=== PATIENT | male | born 1960 | race Caucasian/White ===

== ENCOUNTER → 2017-11-14 14:44 | Outpatient (CLI) | payer BC, SELFPAY ==
--- NOTE | 2017-11-14 14:47 | RAD_ITS ---
STUDY: X-RAY - RIGHT HAND, ATTENTION THIRD FINGER REASON FOR EXAM: Growth of the dorsal middle finger over the metacarpophalangeal joint. TECHNIQUE: 3 view(s) of the finger were obtained. COMPARISON: None. FINDINGS: Normal metacarpal head. Normal metacarpophalangeal joint. Normal proximal phalanx. Normal middle phalanx. Normal distal phalanx. There is a small subchondral cyst of the radial base of the middle phalanx at the proximal interphalangeal joint. Normal distal interphalangeal joint. There are no abnormal soft tissue calcifications or radiographic soft tissue abnormality at the dorsal aspect of the metacarpophalangeal joint RAD/Finger(s) Min 2 Views IMPRESSION: No demonstrated abnormal soft tissue calcification or osseous erosion. Electronically Signed: Gama Villarreal MD at 15:08 EST Tel , Service support ,
== END ==
PROVIDERS: Family Provider Preventive Medicine Occupational Medicine; PCP Preventive Medicine Occupational Medicine; Visit Provider Orthopaedic Surgery
DX: M79.644 Pain in right finger(s) (principal)
CPT/HCPCS: 73140

== ENCOUNTER → 2017-11-27 17:42 | Outpatient (CLI) | payer BC, SELFPAY ==
--- NOTE | 2017-11-27 17:44 | MRI_ITS ---
STUDY: MRI RIGHT HAND REASON FOR EXAM: Male, 57 years old. Mass TECHNIQUE: Standardized fat and water weighted pulse sequences were obtained in all 3 orthogonal planes. COMPARISON: X-ray 11/14/2017 FINDINGS: There is induration of the subcutaneous fat at the dorsal aspect of the head of the third proximal phalanx adjacent to the dermis and extensor tendon/joint capsule (image 19, 18, 17/35 axial T1). There is benign intraosseous lesion at the third metacarpal head and neck which appears cystic in nature (image 13/20 coronal inversion recovery). Normal metacarpophalangeal joints. Normal proximal and distal interphalangeal joints. Normal proximal, middle and distal phalanges. There are no lipomatous masses. MRI/Upper Ext/No Jt/ wo IMPRESSION: Nonspecific induration at the dorsal subcutaneous fat adjacent to the head of the third proximal phalanx Electronically Signed: Ahmet Ochoa MD at 21:34 EST Tel , Service support ,
== END ==
PROVIDERS: Family Provider Preventive Medicine Occupational Medicine; PCP Preventive Medicine Occupational Medicine; Visit Provider Orthopaedic Surgery
DX: R22.9 Localized swelling, mass and lump, unspecified (principal)
CPT/HCPCS: 73218

== ENCOUNTER 2017-12-11 11:35 | Day surgery (SDC) | payer BC, SELFPAY ==
[2017-12-11] VITALS (8 sets, daily range): BP systolic 115–133; BP diastolic 72–88; PULSE 70–82; RESP 16–20; TEMP 36.3–36.6; O2SAT 95–100; BMI 33.5
--- NOTE | 2017-12-11 13:10 | CYST_PTH ---
PATIENT: COLIN PENN LOC: [facility] [place] U#:[id number] AGE/SX: 57/M ROOM: RE12/11/[address]: Dr. Roma Tinajero DO : 1960 BED: DIS: 12/11/2017 SPEC #: [id number] RECD: 12/11/17 18:08 STATUS: CAMRON MAGALYS #: [id number] CARA: 12/11/17 13:[address]: Roma Tinajero DEPT: SURGICAL PATHOLOGY RECD BY: Joseph Lorenzana ENTERED: 12/12/17 11:07 SP TYPE: Cyst OTHR DR: Dr. Brian Dickinson DO Tissues: Finger, NOS Procedures: Surgery Specimen Level III HEADER OPERATION: Excision, bone cyst, third finger, dorsal PIP joint PRE-OP DIAGNOSIS: Cyst third right finger TISSUE SUBMITTED: Right finger cyst MICROSCOPIC DIAGNOSIS Right finger cyst, biopsy: Consistent with ganglion cyst. See comment. IRA:daryl 12/13/17 COMMENT No bony tissue is identified in the submitted specimen. MICROSCOPIC DESCRIPTION Slides are reviewed. GROSS DESCRIPTION Received in fixative is one container labeled with the patient's name and designated finger cyst. The specimen consists of a piece of wood-white soft tissue/skin measuring 0.8 x 0.5 x 0.2 cm. The specimen is inked, bisected and submitted entirely in one cassette. / SJ:daryl 12/12/17 TC:5 CPT: 20585
[2017-12-11] MEDS: Cefazolin 2 GM in 0.9% Normal Saline 100 ML IV (14:20)
[2017-12-11] MEDS: Bupivacaine 0.25% 30 ML Vial (14:40)
--- NOTE | 2017-12-11 15:18 | DCINST_ITS ---
Discharge Diet: No Restrictions - Leave dressing in place, leave splint in place , follow-up in 2 weeks for suture removal, call with concerns, if dressing gets wet or needs reinforcement we may reinforce with more gauze and tape Discharge Activity: May Not Drive May shower in (days): 1 Ice area for (Minutes): 20 - Every hour while awake. Weight Bearing Status: Weight bearing as tolerated Keep extremity elevated above heart level: Operative Extremity Call your doctor if your incision/area has: Continuous Slow Oozing, Sudden Increased Bleeding, Increased Pain/ Swelling, Increased Redness, Foul Smelling Discharge Call your doctor if you observe: Fever of 101 or Higher, Coldness, Increased Pain, Numbness or Tingling, Change in Color, Calf discomfort Allergies/Adverse Reactions: Allergies No Known Allergies Allergy (Verified 12/10/17 11:22) Medications to take at Discharge azelastine 0.15 % (205.5 mcg) nasal spray 1 spray INTRANASAL BID 11/11/17 cetirizine 10 mg tablet 10 mg PO ONCE tab 11/11/17 Ranitidine [Zantac] 150 mg PO DAILY PRN 12/10/17 Primary Care Physician: Brian Dickinson DO [Primary Care Provider] - Please Follow Up With: Roma Tinajero DO - [phone]
--- NOTE | 2017-12-11 15:22 | OP.PCM_ITS ---
Report of Operation Date of Procedure: 12/11/17 Pre-Operative Diagnosis: right third finger dorsal pip joint subcutaneous nodule Post-Operative Diagnosis: same Type of Anesthesia:: Local Anesthesiologist: Ger Dominguez Estimated Blood Loss (mL): minimal Fluids Replaced: 800cc LR Description of Procedure: Preoperative note Patient is a 57-year-old male of the enlargement subcutaneous end of the right PIP and subcutaneous skin. Patient MRI confirms a soft tissue and nonaggressive mass. Patient elected to have it removed as bothering him in his work. Risks benefits and alternatives surgery discussed with patient. Risks including but not limited to blood loss, blood clot, infection, neurovascular injury, failure procedure, loss of life and loss of limb. Patient is aware would like proceed with right dorsal PIPs of cutaneous skin lesion excision. Operative note Patient seen and examined proper preoperative holding area. Right third finger was marked. Patient is brought to the operating room placed supine on the operative table. Signing, anesthesia, antibiotics were administered. We performed a local block at the start of the case of the third finger. Timeout was performed. We then placed a Tourni-cot around the third finger. We marked out our incision for our skin nodule excision. Timeout was performed. We then made use a 15 blade and had a curvilinear S incision incision over this nodule. We dissected with a 15 blade down to level of the cyst we then used tenotomies to dissect down to level of the nodule which is about 0.5 x 0.5 which was removed and sent to pathology. We then used to our Bovie a bipolar to coagulate any bleeders that we did encounter. We the skin was closed with interrupted 4-0 nylon stitches. Tourniquet was deflated for total working time of 15 minutes. Sterile dressings and a splint was applied to the right third finger. Patient tolerated procedure well there are no complication patient transferred to the recovery room in stable condition. Postoperative note Maintain dressing until seen postop clinic Follow-up in 2 weeks Call with concerns next Allowed to reinforce dressing if he gets drainage or may change dressing at the end dressing gets wet next Call with increased pain numbness tingling further issues arise This note was generated with [employer] software. It may contain incorrect words, spelling, and punctuation that were not noted in checking the note before signing.
[2017-12-11] MEDS: HYDROcodone Bitartrate/Apap 5/325 Tablet PO (16:19)
== END 2017-12-11 16:33 | disposition home or self-care (01) ==
LOC: SDC 11:36 → AC 11:37
PROVIDERS: Family Provider Preventive Medicine Occupational Medicine; PCP Preventive Medicine Occupational Medicine; Visit Provider Orthopaedic Surgery
PROC: (CPT 26160; principal; 2017-12-11 12:55)
DX: M67.441 Ganglion, right hand (principal)
CPT/HCPCS: 26160; 88304; J7120; J2405

== ENCOUNTER 2018-01-15 13:30 | Outpatient (RCR) | payer BC, SELFPAY ==
--- NOTE | 2017-12-25 15:43 | HP.OTEVAL ---
Patient's Visit Information COLIN PENN is a 57 year old M, referred to Occupational Therapy by Roma Tinajero DO,, with a diagnosis of R middle finger cyst excision. Date of Evaluation: 12/25/17 Occupational Therapist: Vicky Adams - Subjective Subjective: Pt seen for initial occupational therapy evaluation for R middle finger cyst excision that took place on 12/11/17. Previously pt had smashed his R middle finger at work yrs ago and has deformed R middle finger at PIP and DIP joints. Pt no longer in splint for finger as of 12/24/17 and able to complete ROM and strengthening tasks to R middle finger. 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 Pt R hand dominent. - Pain Right Hand 3 Pain Intensity Range: 1, 2, 3 - Objective Objective/Observation: Pt demo slight edema R middle finger with decreased education on scar mngmt tech. Pt demo R hand decreased cpas strength and increased stiffness and pain limiting functional use of R hand. - ROM PIP: R -10/100, L 0/130 DIP: R -5/ 50, L 0/60 ROM Comments: Pt able to make full composite fist. - Strength Music Composer: R 100#, L 110# Tripod Pinch: R 22#, L 26# Strength Comments: Pt demo decreased strength R hand - Edema Other: Slight edema noted R middle finger PIP joint - Sensation Sensation Comments: occassional numbness/tingling R middle finger distal tip - DASH-Disabilities of Arm, Shoulder& Hand DASH Sum: 60 - Goals Goal:: Pt will progress w/ R hand cpas strength by 10# and pinch strength by 4# to assist with functional living tasks and gardening hobbies. Goal:: Pt will progress with R middle finger PIP flexion 20' to increase functional use of R UE for hobbies of gardening and functional living tasks. Goal:: Pt will demo no pain greater than 1/10 R middle finger by d/c from occupational therapy. Goal:: Pt will be educated on R UE hand strengthening HEP with good understanding and demo 100%x. Goal:: Pt will be educated on scar mngmt tech to decrease scar sensitivity with good understanding and demo 100%x. - Rehabilitation General Assessment: Pt demo slight edema R middle finger with decreased R hand strength and AROM R middle finger. Pt would benefit from occupational therapy services to increase R hand strength and ROM, decrease pain, stiffness and edema R middle finger with education on scar mngmt techniques and HEP. Rehabilitation Potential: Excellent - Anticipated Interventions Anticipated Interventions: A/AAROM/PROM, Strengthening, Edema Control, Massage, Modalities, Joint Protection/Energy Conservation, Fine Motor Coord/Quentin, ADL Training, Home Program - Visit Plan Frequency: 1x/Week Duration: 4 Weeks General Plan: Increase R hand strength and ROM, decrease pain, stiffness and edema R middle finger with education on scar mngmt techniques and HEP. TEXT: Thank you for the opportunity to evaluate your patient. For Medicare and Medicare HMO plans, please review the plan of care and approve it. It will need to be FAXED BACK to us at [phone] for Medicare purposes. Please let me know if there are questions or concerns regarding this plan of care. Physician Signature: Date:
--- NOTE | 2018-01-15 14:27 | HP.OTDCSUM ---
HP - OT D/C Summary It has been my pleasure to treat COLIN PENN under orders from Roma Tinajero DO, for the diagnosis of R middle finger cyst excision for a total of 4 visit(s). Please see the following information for a summary of their discharge status. 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 Tripod Pinch R 24#, L 26#. 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 Goal:: Pt will progress with R middle finger PIP flexion 20' to increase functional use of R UE for hobbies of gardening and functional living tasks. Goal:: Pt will demo no pain greater than 1/10 R middle finger by d/c from occupational therapy. Goal:: Pt will be educated on R UE hand strengthening HEP with good understanding and demo 100%x. Goal:: Pt will be educated on scar mngmt tech to decrease scar sensitivity with good understanding and demo 100%x. - Plan Plan: d/c from OT this date. - D/C Information Discharge Comments: Pt educated on scar mngmt techniques and ROM exercises to complete at home with good understanding. 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 Pt has progressed with tripod pinch strength from R 22# to 24#. Pt demo increased flexion R middle finger PIP joint 64' flexion. Pt completing functional tasks at home with no pain to minimal pain. Independent w/ all BADLs/IADLs. Pt no longer requires OT services at this time. D/C OT services. Pt has made good progress with all goals. If there are questions or concerns regarding this patient's occupational therapy, please fell free to call me at [phone]. Thank you for the referral of this patient. Sincerely, Vicky Adams
== END 2018-01-15 19:00 | disposition home or self-care (01) ==
LOC: OT 13:30
PROVIDERS: Family Provider Preventive Medicine Occupational Medicine; PCP Preventive Medicine Occupational Medicine; Visit Provider Orthopaedic Surgery
DX: Z98.890 Other specified postprocedural states (principal)
CPT/HCPCS: 97035; 97110; 97140; 97165

== ENCOUNTER → 2018-12-09 08:35 | Outpatient (CLI) | payer BC, SELFPAY ==
--- NOTE | 2018-12-09 08:42 | US_ITS ---
STUDY: ABDOMINAL ULTRASOUND - RIGHT UPPER QUADRANT REASON FOR VISIT: Male, 58 years old. Right upper quadrant pain TECHNIQUE: Ultrasound evaluation of the right upper quadrant was performed with real-time and static slater-scale imaging. TECHNICAL QUALITY: Adequate. COMPARISON: None. FINDINGS: Liver: The liver measures 16.9 cm. There is mild heterogeneous echotexture of the liver parenchyma with subtle hyper echogenicity. The bile ducts are within normal limits. There is hepatic color flow. The direction of portal flow is hepatopetal. There is no demonstrated mass lesion. Gallbladder: Normal distended gallbladder. The gallbladder wall measures 2.3 mm. There is a negative sonographic Pittman's sign. There is no pericholecystic fluid. There are no gallstones. Common Bile Duct (C.B.D.): The common bile duct measures 3.0 mm. Pancreas: Normal size of the head, body and tail of the pancreas. There is normal echogenicity of the pancreas. There is no demonstrated pancreatic mass or cyst. Right Kidney: Normal size of the right kidney. The right kidney measures 10.4 x 4.8 x 4.7 cm. Multiple anechoic lesions scattered throughout the right kidney measuring up to 2.5 cm. There is an 8 mm calcification within the right lower renal pelvis. No hydronephrosis. The right cortex measures 2 cm. US/Abdomen Limited IMPRESSION: 1. Simple appearing right renal cysts measuring up to 2.5 cm. 2. Nonobstructing 8 mm right lower renal pole calculus. Electronically Signed: Joseph Mack MD at 3:39 EST Tel , Service support ,
== END ==
PROVIDERS: Family Provider Preventive Medicine Occupational Medicine; PCP Preventive Medicine Occupational Medicine; Referring Provider Nurse Practitioner Family; Visit Provider Nurse Practitioner Family
DX: R10.11 Right upper quadrant pain (principal)
CPT/HCPCS: 76705

== ENCOUNTER → 2019-03-27 11:41 | Outpatient (CLI) | payer BC, SELFPAY ==
--- NOTE | 2019-03-27 11:43 | NM_ITS ---
CLINICAL: 58-year-old male with reported history of right upper quadrant abdominal pain. RADIONUCLIDE HEPATOBILIARY SCINTIGRAPHY COMPARISON: Abdominal ultrasound report 12/09/2018 FINDINGS: Following the intravenous administration of 5.1 mCi of 99m Tc Mebrofenin, hepatobiliary images reveal: 1. Relatively prompt and homogeneous radiopharmaceutical concentration is noted by a normal sized liver. No parenchymal defects are identified. 2. Gallbladder activity is identified at 15 minutes post radiopharmaceutical administration. 3. Small intestinal tract is not visualized during 60 minutes of pre-CCK sequential imaging. Small bowel activity is identified following the administration of cholecystokinin. 4. Washout of the radiopharmaceutical by the hepatic parenchyma appears qualitatively normal. Cholecystokinin (0.02 ug/kg) was administered intravenously over a 3-minute period. The post CCK gallbladder ejection fraction calculated at 20 minutes following Cholecystokinin administration was noted to be 8.0 % (normal greater than 35%). NM/Hepatobilliary Img w/Pharm Int IMPRESSION: 1. ABNORMAL 99m Tc Mebrofenin hepatobiliary imaging examination with Cholecystokinin. A. A gallbladder ejection fraction calculated to be less than 35% following the administration of Cholecystokinin is consistent with the presence of functional hepatobiliary disease (gallbladder and/or sphincter of Oddi dyskinesia) and/or organic hepatobiliary disease (chronic acalculous cholecystitis and/or cystic duct syndrome) in patients with intermediate to high pretest likelihoods of hepatobiliary illness. (Deandra Newell et al, Journal of Nuclear Medicine 32:1695, 1990). Electronically Signed: Blu Segura DO at 23:37 EDT Tel , Service support ,
== END ==
PROVIDERS: Family Provider Preventive Medicine Occupational Medicine; PCP Preventive Medicine Occupational Medicine; Referring Provider Preventive Medicine Occupational Medicine; Visit Provider Preventive Medicine Occupational Medicine
DX: R10.11 Right upper quadrant pain (principal)
CPT/HCPCS: 78227; A9537; J2805

== ENCOUNTER 2020-09-26 04:54 | Emergency (ER) | payer BC, SELFPAY ==
[2020-09-26 04:55] VITALS: BP 135/87; PULSE 97; RESP 18; TEMP 36.6; O2SAT 97; BMI 31.2
--- NOTE | 2020-09-26 05:11 | EKG12_ITS ---
Test Reason : DYSRHYTHMIA Blood Pressure : / mmHG Vent. Rate : 095 BPM Atrial Rate : 095 BPM P-R Int : 142 ms QRS Dur : 084 ms QT Int : 346 ms P-R-T Axes : 000 050 043 degrees QTc Int : 434 ms Normal sinus rhythm vs Ectopic Atrial Rhythm Normal ECG Confirmed by MIGUEL ANGEL ELLIS, CELESTINE ([id number]), material expeditor LILLY SUAREZ ([id number]) on 09/28/2020 12:49:04 PM Referred By: CL Confirmed By:CELESTINE MICHELLE MD
--- NOTE | 2020-09-26 05:11 | RAD_ITS ---
STUDY: X-RAY CHEST REASON FOR EXAM: Male, 60 years old. pt c/o heart racing off and on since before thanksgiviing,getting worse,sob TECHNIQUE: Single AP portable view of the chest. COMPARISON: None. FINDINGS: The lungs are clear and expanded. There is no demonstrated pleural abnormality. Normal size heart. Normal mediastinum and jason. Normal visualized pulmonary arteries. Normal visualized aortic arch and descending thoracic aorta. Normal visualized thoracic spine. Normal visualized ribs, clavicles, and shoulders. There is no demonstrated abnormality of the visualized soft tissue structures of the upper abdomen. RAD/Chest 1 View (Portable) IMPRESSION: Normal x-ray examination of the chest. Electronically Signed: Coco Hoang, at 6:07 EST Tel , Service support ,
--- NOTE | 2020-09-26 05:12 | ED.DCSUM_ITS ---
History of Present Illness Chief Complaint: Palpitations Informant: Patient Narrative: 60-year-old male with no significant past medical history other than hyperlipidemia presents with concern for palpitations. Patient states that approximately 3 weeks ago he had an upper respiratory illness. Tested negative for coronavirus at that time. States that shortly following he began having episodes where at night he would feel his heart racing. States he would become short of breath. States it is resolved whenever he came into a seated position. States it is worsened over this period of time. Patient was seen at an [place] emergency department where they referred him to a concrete vault maker in [place]. This concrete vault maker placed him on Lasix for which he has been taking however states he did not have elevated blood pressure prior to this medication. Patient denies any history of DVT or pulmonary embolism. Patient is not a current smoker. Past Medical History - Allergies and Home Meds Allergies/Adverse Reactions: Allergies No Known Allergies Allergy (Verified 09/26/20 04:58) Primary Care Physician: Gene Chao MD [STAFF PHYSICIAN] - 3-5 Days Brian Dickinson DO [Primary Care Provider] - 2 Days Prior records reviewed: Yes Past Medical History: - - hld Surgical History: cholecystectomy Lives: Spouse/ Significant Other Smoking Status: Former smoker Alcohol: None Drugs: None Review of Systems General: Denies: Chills, Fever, Sweats Eyes: Denies: Visual changes - bilaterally, Diplopia ENT: Denies: Rhinorrhea, Sore throat Cardiovascular: Reports: Palpitations, Heart racing. Denies: Chest pain Respiratory: Reports: Dyspnea. Denies: Cough, Dyspnea on exertion Gastrointestinal: Denies: Abdominal pain, Nausea, Vomiting, Diarrhea, Melena, Hematochezia Genitourinary: Denies: Dysuria, Hematuria, Frequency Musculoskeletal: Denies: Back pain, Extremity Pain Skin: Denies: Rash, Wounds Neurological: Denies: Headache, Weakness, Numbness Physical Exam Vital Signs/Narrative: Vital Signs Temp Pulse Resp BP Pulse Ox 09/26/20 04:55 97.9 F 97 18 135/87 H 97 Inital Vital Signs reviewed: Yes General: Well nourished, Well developed, No Acute Distress Head: Normocephalic, Atraumatic Eyes: Perrl, EOMI ENT: Moist mucous membranes, No rhinorrhea Neck: Supple, Nontender Cardiovascular: Regular rate, Regular rhythm, No murmurs Respiratory: No distress, CTA bilaterally, Chest nontender Abdomen: Soft, Nontender, Nondistended, Normal bowel sounds Back: Nontender, Normal Inspection Extremities: Nontender, No edema Skin: Normal color, No rash Neurological: Alert, Oriented x3, Cranial nerves II-XII grossly intact, Normal Strength, Normal Sensation Psychological: Normal affect, Normal Mood Diagnostic/Tx/Re-eval Chest X-Ray - ED: 1 View, Read by ED Physician, Read by Radiologist - Rhythm Strip Rhythm Strip: Sinus Rhythm Rate: 95 Ectopy: None - EKG Initial EKG Interpretation: Sinus Rhythm - Normal sinus rhythm at 95 bpm. NJ interval of 142 ms. QTC of 434 ms. No evidence of ST elevation or depression at this time. - Medical Decision Making Patient appears well and nontoxic. Vital signs within normal limits. EKG nonischemic. Troponin negative. Chest x-ray negative. BNP as well as D-dimer negative. Unclear the cause of the patient's palpitations however we will get him set up for Holter monitor and follow-up with one of our concrete vault maker. Asked to return for any chest pain or worsening shortness of breath. Patient agreeable and discharged home in stable condition. Impression: 1. Palpitations 2. Dyspnea ED Disposition - Plan for ED Patient: Disposition: Home or Assisted Living Instructions: ED Palpitations Referrals: Brian Dickinson DO [Primary Care Provider] - 2 Days Gene Chao MD [STAFF PHYSICIAN] - 3-5 Days
[2020-09-26 05:33] LABS: Absolute Neutrophil Count 3.6 X10^3/uL (2.0-7.7); Basophil# 0.04 X10^3/uL; Basophil% 0.6 % (0-1); Eosinophils% 1.5 % (0-5); Hematocrit 50.6 % (40-54); Hemoglobin 17.1 g/dL (13.0-16.5); Lymphocyte % 32.1 % (19-41); Mean Corp Hgb Conc 33.8 g/dL (32-36); Mean Corpuscular Hgb 30.4 pg (27.0-32.0); Mean Platelet Vol. 9.6 fl (6.2-12.0); Monocyte# 0.68 X10^3/uL; Monocyte% 10.4 % (0-10); NRBC Flagged by Analyzer 0 % (0-5); Neutrophil # 3.62 X10^3/uL (2.7-7.7); Neutrophil % 55.2 % (47-70); Platelet Count 236 K/mm3 (150-450); RBC Distribution Width CV 12.8 % (11.6-14.6); RBC Distribution Width SD 42.2 fl (35.1-43.9); Red Blood Count 5.62 M/mm3 (4.6-6.2); White Blood Count 6.6 K/mm3 (4.4-11.0)
[2020-09-26 05:47] LABS: Anion Gap 6 (5-15); BUN 19 mg/dL (7-18); BUN/Creat Ratio 16.5 RATIO (10-20); Calcium,Total 9.5 mg/dL (8.5-10.1); Chloride 100 mmol/L (98-107); Creatinine, Serum 1.15 mg/dL (0.70-1.30); D-Dimer Quantitative (DVT/PE) <= 0.27 FEU/ug/m (0.27-0.49); EST Glomerular Filtration Rate 69 mL/min (>60); Est Glom Filt Rate - Afr Amer 83 mL/min (>60); Estimated Creatinine Clearance 70.53 ml/min; Glucose 129 mg/dL (74-106); Potassium 3.9 mmol/L (3.5-5.1); Sodium Level 137 mmol/L (136-145)
--- NOTE | 2020-09-26 06:48 | ED.RN ---
CALLED LAB FOR BNP RESULTS, 10 MORE MINUTES.
[2020-09-26 07:08] LABS: BNP,B-Type NATRIURETIC PEPTIDE < 2.0 pg/mL (0-100)
[2020-09-26 07:43] VITALS: BP 129/75; PULSE 93; RESP 15; O2SAT 98
== END 2020-09-26 08:56 | disposition home or self-care (01) ==
PROVIDERS: Emergency Provider Emergency Medicine; PCP Preventive Medicine Occupational Medicine
DX: R00.2 Palpitations (principal); R06.00 Dyspnea, unspecified; E78.5 Hyperlipidemia, unspecified; Z87.891 Personal history of nicotine dependence
CPT/HCPCS: 71045; 80048; 83880; 84484; 85025; 85379; 93005; 99284; A4216

== ENCOUNTER → 2020-09-26 07:43 | Outpatient (CLI) | payer BC, SELFPAY ==
[2020-09-26 04:55] VITALS: BMI 31.2
== END ==
PROVIDERS: PCP Preventive Medicine Occupational Medicine; Visit Provider Internal Medicine Cardiovascular Disease
DX: R00.2 Palpitations (principal)
CPT/HCPCS: 93225; 93226

== ENCOUNTER → 2020-11-07 16:07 | Outpatient (CLI) | payer BC, SELFPAY ==
[2020-10-19 08:47] VITALS: BMI 31.2
--- NOTE | 2020-11-07 16:12 | CT_ITS ---
HISTORY: DYSPNEA, ELEVATED HEART RATE TECHNIQUE: CT images of the chest were obtained with 92 mL Isovue-370 IV contrast. Number of images including paperwork: [id number]. A radiation dose optimization technique was used for this scan. COMPARISON: Chest radiograph 09/26/2020 FINDINGS: VASCULATURE: Unremarkable as imaged. HEART/PERICARDIUM: Normal heart size. Coronary calcification. MEDIASTINUM: Unremarkable. ADENOPATHY: No pathologic appearing adenopathy. THYROID: Unremarkable visualized portions. LUNG PARENCHYMA: No consolidation or mass. PLEURAL SPACES: Unremarkable. UPPER ABDOMEN: Cholecystectomy. OSSEOUS AND SOFT TISSUE STRUCTURES: No acute skeletal findings. Degenerative changes. DEVICES: None. CT/Chest WITH Contrast IMPRESSION: No acute abnormality of the chest. Individualized dose optimization techniques were used for this CT. at 0453 Reported and signed by: Betty Apple MD Electronically Signed: Betty Apple MD at 4:53 EST Tel , Service support ,
== END ==
PROVIDERS: PCP Preventive Medicine Occupational Medicine; Referring Provider Internal Medicine Cardiovascular Disease; Visit Provider Internal Medicine Cardiovascular Disease
DX: R06.00 Dyspnea, unspecified (principal)
CPT/HCPCS: 71260; Q9967

== ENCOUNTER → 2021-08-23 10:51 | Outpatient (CLI) | payer BC, SELFPAY ==
[2021-08-23 12:25] LABS: Absolute Lymphocyte Count 1.63 X10^3/uL (0.83-4.51); Basophil# 0.05 X10^3/uL; Basophil% 1.1 % (0-1); Eosinophil# 0.55 X10^3/uL; Eosinophils% 11.8 % (0-5); Hematocrit 47.5 % (40-54); Hemoglobin 15.8 g/dL (13.0-16.5); Lymphocyte # 1.63 X10^3/ul (0.83-4.51); Lymphocyte % 35.1 % (19-41); Mean Corp Hgb Conc 33.3 g/dL (32-36); Mean Corpuscular Hgb 30.1 pg (27.0-32.0); Mean Corpuscular Volume 90.5 fL (80-94); Mean Platelet Vol. 10.1 fl (6.2-12.0); Monocyte# 0.38 X10^3/uL; Monocyte% 8.2 % (0-10); NRBC Flagged by Analyzer 0 % (0-5); Neutrophil # 2.03 X10^3/uL (2.7-7.7); Neutrophil % 43.6 % (47-70); Platelet Count 189 K/mm3 (150-450); RBC Distribution Width CV 13.7 % (11.6-14.6); RBC Distribution Width SD 45.3 fl (35.1-43.9); Red Blood Count 5.25 M/mm3 (4.6-6.2); White Blood Count 4.7 K/mm3 (4.4-11.0)
[2021-08-23 12:45] LABS: ALB/GLOB Ratio 0.9 RATIO (0.9-2.4); AST(SGOT) 20 U/L (15-37); Alanine Aminotransfer ALT/SGPT 35 U/L (16-61); Albumin, Serum 3.6 g/dL (3.2-5.0); Alkaline Phosphatase 72 U/L (45-117); Anion Gap 2 (5-15); BUN 17 mg/dL (7-18); BUN/Creat Ratio 16.2 RATIO (10-20); Calcium,Total 9.3 mg/dL (8.5-10.1); Chloride 105 mmol/L (98-107); Creatinine, Serum 1.05 mg/dL (0.70-1.30); EST Glomerular Filtration Rate 76 mL/min (>60); Est Glom Filt Rate - Afr Amer 92 mL/min (>60); Glucose 108 mg/dL (74-106); Potassium 3.9 mmol/L (3.5-5.1); Protein, Total 7.6 g/dL (6.4-8.2); Sodium Level 139 mmol/L (136-145)
== END ==
PROVIDERS: PCP Family Medicine; Referring Provider Family Medicine; Visit Provider Family Medicine
DX: Z01.818 Encounter for other preprocedural examination (principal)
CPT/HCPCS: 36415; 80053; 85025

== ENCOUNTER 2021-09-01 05:57 | Day surgery (SDC) | payer BC, SELFPAY ==
[2021-09-01] VITALS (7 sets, daily range): BP systolic 114–134; BP diastolic 67–97; PULSE 64–80; RESP 16–18; TEMP 36–36.4; O2SAT 97–100; BMI 32.1
[2021-09-01] MEDS: Lactated Ringers 1,000 ML 100 ML IV ×3 (06:35→11:48)
--- NOTE | 2021-09-01 07:22 | RAD_ITS ---
STUDY: X-RAY - RIGHT FOOT CLINICAL: Male, 61 years old. Internal fixation of the second toe, fusion of the PIP joint TECHNIQUE: 5 intraoperative view(s) of the foot. COMPARISON: None. FINDINGS: Limited intraoperative views of the right foot were performed as the patient has undergone surgical fusion of the PIP joint of the second toe. Alignment is anatomic after the screw has been placed. There is no intraoperative complication. RAD/Foot 2 Views IMPRESSION: Intraoperative studies of surgical fusion of the PIP joint of the second toe. No intraoperative complications noted Electronically Signed: Aubrey Moraes MD at 11:10 EST , Service support ,
[2021-09-01] MEDS: Cefazolin 2 GM in 0.9% Normal Saline 100 ML IV (07:27)
--- NOTE | 2021-09-01 07:35 | EX.PCM.DISCH ---
Discharge Instructions Diet Discharge Diet: No restrictions Activity Discharge Activity: May Not Drive and May Shower (with use of shower bag) Ice area for (Minutes): 15 (apply behind your knee) Weight Bearing Status: No weight bearing Keep extremity elevated above heart level: Right Leg Dressing / Incision Call your doctor if your incision/area has: Continuous Slow Oozing, Sudden Increased Bleeding, Increased Pain/ Swelling, Increased Redness, Foul Smelling Discharge and Swelling at the incision site Call your doctor if you observe: Fever of 101 or Higher, Chest pain, Calf discomfort and Uncontrolled pain Cleanse incision/area with: Do not get Incision Wet, Keep Dressing Clean & Dry and - (Keep you splint clean, dry, and intact) Follow Up Care Please Follow Up With: Jahaira Parrish DPM When: 1 week. Call [facility] sooner if questions or concerns at [phone]. Test Results: Test results from this visit will be discussed in further detail at your follow-up appointment, if applicable. Discharge Plan Admission Attending Provider: Jahaira Parrish Primary Care Provider: Brian Dickinson Discharge Orders/Prescriptions Prescriptions: New oxycodone-acetaminophen [Endocet] 5-325 mg tablet 1 tab PO Q6H PRN (Reason: pain) 7 Days Qty: 28 RF: 0 No Action azelastine 0.15 % (205.5 mcg) spray,non-aerosol 1 spray INTRANASAL BID RF: 0 famotidine [Pepcid] 20 mg tablet 20 mg PO DAILY RF: 0 furosemide [Lasix] 20 mg tablet 10 mg PO DAILY PRN (Reason: Edema) RF: 0 diclofenac sodium [Voltaren] 1 % gel 2 g TOPICAL ONCE RF: 0 rosuvastatin [Crestor] 5 mg Tablet 5 mg PO DAILY RF: 0 Referrals / Follow Up: Brian Dickinson DO [Primary Care Provider] - Disposition Disposition (needs filled in before D/C Order can be placed): Home, Self Care
[2021-09-01] MEDS: Lidocaine 1% (30 ml sdv) 30 ML Vial (08:00)
[2021-09-01] MEDS: Bupivacaine Mpf 0.5% 30 ML VIAL (08:00)
--- NOTE | 2021-09-01 10:49 | OP.PCM_ITS ---
Problems Associated Problem List Diagnoses (1) Pain in right foot: (2) Other hammer toe(s) (acquired), right foot: (3) Injury of plantar plate of right foot: (4) Tear of tendon of right foot: Report of Operation Date of Procedure: 09/01/21 Pre-Operative Diagnosis: 1. Right second hammertoe 2. Suspected plantar plate injury right foot Post-Operative Diagnosis: 1. Right second hammertoe 2. Complex plantar plate tear right foot 3. Flexor digitorum longus tendon tear Surgery/Procedure Performed:: 1. Right second hammertoe correction with arthrodesis of the proximal interphalangeal joint 2. Repair of plantar plate tear right foot 3. Repair of flexor digitorum longus tendon tear Description of Surgical Findings:: Hemostasis: Well-padded pneumatic right ankle tourniquet, 250 mmHg, 125 minutes Materials: 2-0 Vicryl, 3-0 nylon, 2-0 nylon, 0-fiber tape, one Arthrex 3 mm tenodesis screw, one Arthrex micro FT compression screw Complications: None The patient tolerated the procedure and anesthesia well. The patient was transported to the PACU with vital signs stable and vascular status intact to the surgical limb. To ice and elevate for pain and inflammation management. Postoperative x-rays were reviewed prior to leaving the operating room. This demonstrated reduction of hammertoe deformity with arthrodesis site well approximated with hardware intact in the desired trajectory and position. The second metatarsal phalangeal joint was also well aligned. Radiolucency to proximal phalanx base is consistent with tenodesis screw placement. No acute injuries or foreign bodies are noted. Postoperative orders were entered electronically. Surgeon: Jahaira Parrish compliance aide: None (Yesenia Melvin, PGY2, DPM) Type of Anesthesia: Local (preop: 1:1 mix of 1% lidocaine plain and 0.5% Marcaine plain administered in second ray block fashion, 15 cc. Postop: Same mixture administered in second and third ray block fashion and local infiltration, 14 cc right foot) and MAC Specimen's removed: none Drains: none Estimated Blood Loss (mL): < 100 mL Description of Procedure: Indications: This 61-year-old male with significant past medical history of seasonal all ergies and hypercholesterolemia continues to have right foot pain for approximately 2 years. His pain is located to the ball of his foot and he has a pronounced progressive second hammertoe deformity. Prior x-rays do not demonstrate any fractures or dislocations. His hammertoe deformity is evident. It is also noted that he does not have a long second metatarsal or any radiographic evidence of Freiberg's disease. He had an MRI performed while he was being treated at an outside facility approximately 1 year ago which confirmed his hammertoe deformity but did not demonstrate a distinct plantar plate tear. There was still suspicion for plantar plate tear due to reproducible pain with Miranda test and pain on palpation to the proximal phalanx base. The dorsal contracture of the proximal interphalangeal joint of the second toe is not reducible. There is a mild amount of dorsal contracture at the distal interphalangeal joint of the second toe however this is reducible. There does not appear to be a crossover or transverse plane significant deviation. He has palpable pulses and his neurological status is also intact. He has failed conservative care and elects to proceed forward with surgical intervention. His prior conservative care has included advanced imaging, offloading with metatarsal pad, updated shoe gear, significant activity modifications, bracing, [id number] medications, and injections. Preoperative H&P were reviewed including his diagnostic data. There is no gross abnormalities noted with labs for preoperative EKG. Preoperative indications, planned procedure, benefits, risk, anticipated healing time and management were reviewed. The patient understands and elects proceed with surgery at this time. No guarantees were made. The patient understands risk and complications include but are not limited to following: pain, swelling, scarring, need for further surgery, tendon contracture, transfer lesion, hardware failure, arthritis, need for further surgery, delayed or nonhealing, infection, blood clot, allergic reaction, loss of limb, function, or life. The informed surgical limb and consent were signed. I answered all the patient's questions. The patient also understands there is an inherent risk with being in the hospital and undergoing a procedure during the time of COVID-19 pandemic. The patient understands precautions are being taken to prevent transmission. This patient understands the benefits and risks of having a procedure at this time versus waiting in which the benefits are reasonable at this time. Procedure in detail: The patient was transported to the operating room via cart and placed on the operating table in the supine position. Final verification of the patient, surgery, limb designation was performed via the timeout procedure. The podiatry team administered the preoperative anesthetic. A well-padded pneumatic right ankle tourniquet was placed. The anesthesia team administered MAC anesthesia. Preoperative antibiotic was administered. The right limb was bumped to allow good exposure. An Esmarch bandage was used to exsanguinate the limb and the tourniquet was inflated at this time. Surgery began the following manner: Attention was first directed to the dorsal second toe over the proximal interphalangeal joint in which an incision was made through the skin. Blunt dissection was next performed down to the extensor digitorum longus tendon. Care was taken to identify, protect, and retract all neurovascular structures at this time and throughout the remainder of surgery. The extensor tendon incision was made in a transverse manner and the proximal interphalangeal joint was entered with a 15 blade scalpel. The collateral ligaments were carefully reflected off of the head of the proximal phalanx and the base of the middle phalanx. This allowed for good exposure. A sagittal saw was used to resect the head of the proximal phalanx and a rongeur was used to remove subchondral bone and articular surface off of the base of the middle phalanx. Saline irrigation was gently performed. A guidewire was placed and proper trajectory was confirmed with intraoperative fluoroscopy for application of the FT compression screw. Proper AO fixation and Arthrex protocol techniques were utilized. Approximation of the arthrodesis site was confirmed with direct visualization and fluoroscopy guidance prior to placement of FT compression screw. Attention was next directed to the dorsal second metatarsal phalangeal joint which a slightly lateral offset incision was made through the skin. Blunt dissection was performed down to the conjunction of the extensor digitorum longus and brevis tendons. A capsular incision was made to the dorsal second metatarsal phalangeal joint. The articular surface of the second metatarsal head was evaluated without evidence of advanced arthritis or osteochondral defect. The collateral ligaments were gently reflected off of the base of the proximal phalanx and the plantar plate was directly visualized at this time. There was a complete transverse tear centrally with additional lateral stellate tears. The plantar plate that was connected to the plantar aspect of the proximal phalanx base was reflected with a 15 blade. Further mobilization of the plantar plate from the plantar surface of metatarsal head was achieved with a McGlamry elevator taking care to preserve the collateral ligament attachments to the metatarsal head. Is also noted at this time that the flexor digitorum longus tendon extending to the second toe was also torn and frayed. Full direct visualization was not achieved through this dorsal aspect and I was suspecting pathological tissue was extending beyond this visualized field. The decision was made to make an additional plantar incision. Attention was next directed to the plantar aspect of the right foot in which a 3 cm curvilinear incision was made extending from the plantar first interspace off of the medial aspect of the plantar second toe to just proximal to the second metatarsal head aspect taking care to keep this incision off of the direct plantar second metatarsal head prominence. Again blunt dissection was performed down to the capsular layer in which the two free ends of the flexor digitorum longus tendon were identified. It was torn and involved a segments of 2.5 cm. These were set aside until after repair of the plantar plate. The Arthrex scorpion device was used to apply 0 FiberWire in a horizontal stitch manner to the remaining proximal portion of the plantar plate. This was next routed through the plantar base of the proximal phalanx and secured with a tenodesis Arthrex screw to advance the remaining plantar plate into a more anatomic position. The additional stellate plantar lateral lesion was repaired with 3-0 nylon. During this fixation, the toe was positioned in a 10 to 15 degree plantarflexed position without any gapping at the articular surface. Next, attention was directed back to the torn flexor digitorum longus tendon. This devitalized tendon was excised with a 15 blade scalpel and this was tubularized with 4-0 nylon in a locking stitch manner. Approximately 70% of the tendon remained intact. Next, the second metatarsal phalangeal joint collateral ligaments were reapproximated and repaired utilizing the 3-0 nylon. This toe was balanced in all three planes clinically while the foot was loaded to simulate weightbearing position. Saline irrigation was performed. The tourniquet was deflated and brisk capillary refill time was noted to all digits of the right foot. No pulsatile bleeding was noted. Pressure and minimal electrocauterization was performed. Deep closure was next performed with Vicryl suture. The skin was reapproximated utilizing horizontal mattress technique with nylon sutures. A postoperative dressing consisting of Betadine soaked Adaptic was applied. An additional Betadine soaked gauze was applied and a splintage type manner to keep the second toe in a stable plantarflexed position. Further dressings consisting of Yo roll, abdominal pad Kerlix and John wrap was applied. Next, a well-padded right lower extremity posterior mold splint with additional toe guard was applied with the foot in a slightly plantarflexed position to protect the tendon repair site. After Procedure: The patient tolerated the procedure and anesthesia well. The patient was transported to the PACU with vital signs stable and vascular status intact to the surgical limb. To ice and elevate for pain and inflammation management. Postoperative x-rays were reviewed prior to leaving the operating room as noted. To maintain a nonweightbearing status of the right lower extremity. He has crutches and a knee roller at home already. He was also advised on safe and proper use of narcotic pain medication only if needed. Postoperative orders were entered electronically. He will be discharged home. He will [facility] 1 week. Jahaira Parrish DPM, [facility] Grafts/Implants Used: arthrex Complications none Admit VTE Documentation VTE Present on Admission: No VTE Mechan Device Prophylaxis: SCD's VTE Pharm Prophylaxis ordered?: No Reason prophylaxis not ordered:: Procedure Not Indicated
--- NOTE | 2021-09-01 11:10 | RAD_ITS ---
STUDY: X-RAY - RIGHT FOOT CLINICAL: Male, 61 years old. Hammertoe correction TECHNIQUE: 3 view(s) of the foot. COMPARISON: None. FINDINGS: Patient is status post surgical fusion of the PIP joint of the second toe. Alignment at the PIP joint is anatomic with no plain film evidence of postoperative complications. There are lucencies within the distal second metatarsal and proximal second phalanx likely from previously placed hardware. Normal talus, calcaneus, and tarsal bones. Normal visualized subtalar, talonavicular, calcaneocuboid, tarsal and tarsometatarsal articulations. Normal metatarsi. Normal metatarsophalangeal joint of the great toe. Normal tibial and fibular sesamoid bones. Normal interphalangeal joint of the great toe. Normal phalanges of the great toe. Normal second through fifth metatarsophalangeal joints. Normal interphalangeal joints and phalanges of the lesser toes. Normal postoperative soft tissue swelling noted. RAD/Foot min 3 Views IMPRESSION: The patient is status post surgical fusion of the PIP joint of the second toe. Alignment is anatomic with no plain film evidence of postoperative complication No acute fracture or suspicious osseous lesion, lucencies in the distal second metatarsal and proximal second phalanx likely from previous hardware placement No demonstrated foreign body, normal postoperative soft tissue swelling. Electronically Signed: Aubrey Moraes MD at 11:32 EST , Service support ,
[2021-09-01] MEDS: oxyCODONE 5 MG Tablet PO (12:15)
[2021-09-01] MEDS: Acetaminophen 325 MG Tablet PO (12:15)
[2021-09-01] MEDS: Ketorolac 30 MG/ML Syringe IM (12:41)
== END 2021-09-01 13:30 | disposition home or self-care (01) ==
LOC: SDC 05:58 → AC 05:58
PROVIDERS: PCP Preventive Medicine Occupational Medicine; Referring Provider Podiatrist; Visit Provider Podiatrist
PROC: (CPT 28292; principal; 2021-09-01 07:15)
DX: M20.41 Other hammer toe(s) (acquired), right foot (principal); S96.011A Strain of muscle and tendon of long flexor muscle of toe at ankle and foot level, right foot, initial encounter; E78.5 Hyperlipidemia, unspecified; J45.909 Unspecified asthma, uncomplicated; K21.9 Gastro-esophageal reflux disease without esophagitis; E66.9 Obesity, unspecified; Z68.32 Body mass index [BMI] 32.0-32.9, adult; Z79.899 Other long term (current) drug therapy; X58.XXXA Exposure to other specified factors, initial encounter; Y93.89 Activity, other specified; Y92.89 Other specified places as the place of occurrence of the external cause; Y99.8 Other external cause status
CPT/HCPCS: 01470; 28200; 28285; 28899; 73620; 73630; 76000; C1713; J7120; J2405

== ENCOUNTER → 2021-09-26 12:49 | Outpatient (CLI) | payer BC, SELFPAY ==
--- NOTE | 2021-09-26 12:59 | VDLE_ITS ---
Reason For Study: pain RIGHT GSV is normal. CFV is compressible, spontaneous, phasic, competent and demonstrates normal augmentation. FV is compressible, spontaneous, phasic, competent and demonstrates normal augmentation. POP V is compressible, spontaneous, phasic, competent and demonstrates normal augmentation. T/P Trunk is compressible. PTV is compressible. RT PerV is compressible. Soleus V is dilated and noncompressible. Procedure This is a venous duplex using B-mode, color flow and spectral Doppler. Exam performed in department. The exam was abbreviated due to the COVID 19 protocol. The exam was diagnostic. A preliminary report was called and/or faxed to Dr. Parrish's office. VL/Venous Duplex US, Unilateral Interpretation Summary Acute deep vein thrombosis is noted in the right soleus vein. The remainder of the right lower extremity deep venous system is patent and compressible. Valvular competence ap pears intact within the proximal deep venous system on the right . The right great saphenous vein a ppears patent and compressible segmentally. Ordering Physician: Jahaira Parrish Performed By: Kyaw Abdi RVT
== END ==
PROVIDERS: PCP Preventive Medicine Occupational Medicine; Referring Provider Podiatrist; Visit Provider Podiatrist
DX: M79.661 Pain in right lower leg (principal); I82.469 Acute embolism and thrombosis of unspecified calf muscular vein
CPT/HCPCS: 93971

== ENCOUNTER 2021-10-01 13:42 | Emergency (ER) | payer BC, SELFPAY ==
[2021-10-01 13:43] VITALS: BP 150/77; PULSE 122; RESP 18; TEMP 36.8; O2SAT 96; BMI 31.5
--- NOTE | 2021-10-01 13:45 | RAD_ITS ---
INDICATION: chest pain EXAMINATION/TECHNIQUE: X-RAY - XR Chest 1 View COMPARISON: 09/26/2020 FINDINGS: LIFE-SUPPORT AND LINES: 1. None HEART AND VESSELS: The cardiac silhouette, pulmonary vasculature have normal appearance. No evidence of congestive failure. LUNGS AND PLEURAL SPACES: Lungs are clear. No focal infiltrate, consolidation or effusions. No evidence of pneumothorax. There is shallow aspiration crowding of bronchovascular markings. MEDIASTINUM AND HILAR REGIONS: No masses adenopathy noted. No areas of calcification. Visualized upper airway is normal in position. BONY ELEMENTS: No acute bony changes noted. RAD/Chest 1 View (Portable) IMPRESSION: 1. Shallow inspiration and crowding of bronchovascular markings particularly at the LEFT lung base. 2. No evidence of acute cardiopulmonary process Electronically Signed: Blu Urbina MD at 15:54 EST Tel , Service support ,
--- NOTE | 2021-10-01 13:45 | EKG12_ITS ---
Test Reason : PALPS Blood Pressure : / mmHG Vent. Rate : 119 BPM Atrial Rate : 119 BPM P-R Int : 178 ms QRS Dur : 084 ms QT Int : 302 ms P-R-T Axes : 059 065 -18 degrees QTc Int : 424 ms Sinus tachycardia Low voltage QRS (Limb Leads) Confirmed by MIGUEL ANGEL ELLIS, CELESTINE ([id number]), supervising editor trailer LILLY SUAREZ ([id number]) on 10/04/2021 10:40:42 AM Referred By: KORY Confirmed By:CELESTINE MICHELLE MD
[2021-10-01 14:41] LABS: Absolute Lymphocyte Count 1.28 X10^3/uL (0.83-4.51); Absolute Neutrophil Count 4.4 X10^3/uL (2.0-7.7); Basophil# 0.03 X10^3/uL; Basophil% 0.5 % (0-1); Eosinophil# 0.06 X10^3/uL; Hematocrit 48.4 % (40-54); Hemoglobin 16.1 g/dL (13.0-16.5); Lymphocyte # 1.28 X10^3/ul (0.83-4.51); Lymphocyte % 20.5 % (19-41); Mean Corp Hgb Conc 33.3 g/dL (32-36); Mean Corpuscular Hgb 29.9 pg (27.0-32.0); Mean Corpuscular Volume 89.8 fL (80-94); Mean Platelet Vol. 9.7 fl (6.2-12.0); Monocyte# 0.46 X10^3/uL; Monocyte% 7.4 % (0-10); NRBC Flagged by Analyzer 0 % (0-5); Neutrophil # 4.37 X10^3/uL (2.7-7.7); Neutrophil % 70.1 % (47-70); Platelet Count 191 K/mm3 (150-450); RBC Distribution Width CV 13.7 % (11.6-14.6); Red Blood Count 5.39 M/mm3 (4.6-6.2); White Blood Count 6.2 K/mm3 (4.4-11.0)
[2021-10-01 14:49] LABS: Prothrombin Time (Protime)PT. 12.4 SECONDS (11.7-14.9)
[2021-10-01 15:00] LABS: Anion Gap 6 (5-15); BUN 20 mg/dL (7-18); Calcium,Total 8.8 mg/dL (8.5-10.1); Chloride 110 mmol/L (98-107); Creatinine, Serum 1.11 mg/dL (0.70-1.30); EST Glomerular Filtration Rate 72 mL/min (>60); Est Glom Filt Rate - Afr Amer 87 mL/min (>60); Estimated Creatinine Clearance 72.16 ml/min; Glucose 138 mg/dL (74-106); Potassium 4.1 mmol/L (3.5-5.1); Sodium Level 142 mmol/L (136-145); Troponin-I HS 4 pg/mL (3.0-78.0)
[2021-10-01 15:24] VITALS: BP 126/84; PULSE 93; RESP 18; O2SAT 98
--- NOTE | 2021-10-01 15:52 | CT_ITS ---
STUDY: CTA CHEST REASON FOR EXAM: Male, 61 years old. Chest pain RADIATION DOSAGE (If Supplied By Facility): CTDIvol = ( 10.13 ) mGy, DLP = ( 553.65 ) mGycm TECHNIQUE: The examination was performed with the intravenous administration of IV 100mL Isovue-370. Post-processing of the angiographic images was performed, with multiplanar reformation and 3D reconstruction. Individualized dose optimization techniques were used for this CT. Radiation Dose (provided by facility) CTDIvol (10.13 ) mGy, DLP ( 553.65) mGy-cm COMPARISON: None. FINDINGS: Lines and tubes: 1. No life-support noted. 2. No pneumothorax. CTA: PULMONARY ARTERIES: There is normal configuration and contrast opacification of pulmonary outflow tract, main pulmonary arteries, segmental and intersegmental pulmonary arteries bilaterally without evidence of intraluminal filling defects. AORTIC ARCH: The aortic arch and descending aorta have normal configuration. No evidence of dissection or aneurysmal dilatation. HEART: Cardiac contour is normal. No evidence pericardial effusion. CT CHEST: LUNGS: [Unremarkable. No mass. No consolidation. PLEURAL SPACES: Unremarkable, no effusion or pneumothorax.. MEDIASTINUM AND LYMPH NODES: Unremarkable. No significant adenopathy. BONES: Unremarkable ABDOMEN: Postop change of prior cholecystectomy. RIGHT renal exophytic cyst is also noted measuring approximately 1.7 x 2.1 cm in size. Additional small cyst suspected in the lower contour of the RIGHT hepatic lobe measuring approximately 6 mm in size. Other: None IMPRESSIONS: 1. No CTA evidence of pulmonary embolism. 2. No CTA evidence of aortic aneurysm or dissection 3. Normal CT appearance of the heart and pericardium. 4. No focal infiltrate consolidation or effusion noted. 5. Incidental note of postop change of prior cholecystectomy, small hepatic cysts and a RIGHT renal cyst Electronically Signed: Blu Urbina MD at 16:36 EST Tel , Service support , CT/CTA Chest W/WO Contrast
--- NOTE | 2021-10-01 15:53 | ED.VIS.CHEST ---
HPI History of Present Illness Chief Complaint: Palpitations Detail of Chief Complaint: Racing heart and discomfort into the neck and left shoulder Informant: patient Narrative Narrative: Patient presents to the emergency department with complaint of a racing heart that he noticed around 9 AM. Patient also discomfort in his left shoulder as well as neck and left bicep. Patient states that the discomfort resolved after about an hour and a half. Patient is concerned because he was diagnosed with a DVT 4 days ago and was started on Eliquis. Patient has been compliant with the Eliquis. Patient recently had surgery on his right lower extremity that is believed to have precipitated the blood clot. Patient also with history of high cholesterol but has no history of coronary artery disease. Patient still has some mild discomfort in his left neck. Patient also felt like his heart was racing. Prior Similar Symptoms: No PFSH PFSH Medical History (Updated 10/01/21 @ 17:[address] Hu Nunez DO) Asthma Cardiology follow-up encounter Gastric reflux GERD (gastroesophageal reflux disease) High cholesterol History of echocardiogram History of Holter monitoring History of stress test Hyperlipidemia Insomnia Non-smoker Obesity Wears glasses Home Medications azelastine 205.5 mcg (0.15 %) nasal spray 1 spray INTRANASAL BID 11/11/17 [History Last Taken Unknown] famotidine 20 mg tablet 20 mg PO DAILY 10/03/20 [History Last Taken Unknown] diclofenac sodium 1 % topical gel 2 g TOPICAL ONCE 12/28/20 [History Last Taken Unknown] furosemide 20 mg tablet 10 mg PO DAILY PRN tab 12/28/20 [History Last Taken Unknown] rosuvastatin [Crestor] 5 mg PO DAILY 08/25/21 [History Last Taken Unknown] oxycodone-acetaminophen [Endocet] 1 tab PO Q6H PRN 7 Days #28 tab 08/30/21 [Rx Last Taken Unknown] apixaban [Eliquis] 10 mg PO BID 10/01/21 [History Last Taken Unknown] Allergy/AdvReac Type Severity Reaction Status Date / Time No Known Allergies Allergy Verified 10/01/21 13:43 Family History Sister Diabetes Mother Diabetes Father Hypertension Surgical History H/O arthroscopy of shoulder History of cholecystectomy Hx of arthroscopy of shoulder right finger cyst excision Social History (Updated 12/28/20 @ 13:52 by Gideon Vega [employer]) Smoking Status: Never smoker ROS ROS ED Review of Systems ROS Unobtainable: other Constitutional Constitutional ED: Reports lethargy; Denies chills, fever(s), sweats or weight loss Eyes Eyes: Denies blurry vision, change in vision or diplopia ENT ENT ED: Denies rhinorrhea or sore throat Cardiovascular Cardiovascular: Reports racing heartbeat; Denies orthopnea Respiratory/Chest Respiratory/Chest: Reports dyspnea and dyspnea on exertion; Denies cough, orthopnea or sputum Gastrointestinal Gastrointestinal: Denies abdominal pain, diarrhea, nausea or vomiting Genitourinary Genitourinary ED: Denies dysuria, hematuria or urinary frequency Musculoskeletal Musculoskeletal: Reports other Details: Left shoulder pain ; Denies arthralgias, back pain, myalgias or neck pain Integumentary Denies abscess, Abrasions or rash Neurologic Neurologic: Denies headache(s) or weakness Psychiatric Psychiatric: Denies anxiety, depression or suicidal thoughts Endocrine Endocrinology: Denies polydipsia, polyphagia or polyuria Hematologic/Lymphatic Hematologic/Lymphatic: Denies easy bleeding, easy bruising or lymphadenopathy Allergic/Immunologic Allergic/Immunologic ED: Denies mouth swelling, tongue swelling or urticaria EXAM Physical Exam Const Vital Signs: 10/01/21 13:43 10/01/21 15:24 10/01/21 15:59 Temperature 98.2 F Temperature Source Temporal Pulse Rate 122 H 93 Respiratory Rate 18 18 Blood Pressure 150/77 H 126/84 H Blood Pressure Mean 101 98 Pulse Ox 96 98 99 Oxygen Delivery Method Room Air Room Air Room Air 10/01/21 16:00 Temperature Temperature Source Pulse Rate 92 Respiratory Rate 15 Blood Pressure 135/89 H Blood Pressure Mean 104 Pulse Ox 99 Oxygen Delivery Method Room Air Positive well nourished and well developed General Appearance ED: well developed and NAD HEENT Reports TM's clear and moist mucous membranes normocephalic and atraumatic; Negative for trauma or tenderness Tympanic Membrane ED: Yes TM's clear Eyes PERRL and EOMs intact bilaterally General Eye ED: Negative for pale conjunctiva or scleral icterus Neck no lymphadenopathy, supple and no JVD General: Negative for tenderness Chest Wall inspection of chest normal and palpation of chest normal Chest: Negative for tenderness Resp normal respiratory effort and clear to auscultation bilaterally Effort and Inspection: Negative for respiratory distress or pain with movement Auscultation: Negative for rhonchi, wheezes or diminished lung sounds Cardio regular rate, regular rhythm, S1 normal heart sound, S2 normal heart sound and no murmurs Peripheral Pulses: pulses 2+ throughout GI normal to inspection, nondistended, normoactive bowel sounds, soft to palpation, non-tender, non-distended and no masses Back/Spine no CVA tenderness and no thoracic nor lumbar tenderness Extremity normal to inspection General Extremety ED: Negative for edema General Extremity: Negative for edema Neuro oriented x3, CN's II-XII intact bilaterally, no sensory deficits noted and gait normal Sensorium / Orientation: awake, alert, oriented to person, oriented to place and oriented to time Motor Exam: strength 5/5 throughout and strength abnormal Psych mental status grossly normal Skin no rashes or lesions noted and no wounds Heart Score History: Slightly/Non-Suspicious ECG: Normal Age: >45 - <65 years Risk Factors: 1 or 2 Risk Factors Troponin: </= Normal Limit Score: 2 MDM MDM MDM Narrative Medical decision making narrative: IV line established on arrival. Patient had labs that were unremarkable. CTA of the chest obtained was negative for PE or any acute disease process. This point my suspicion for acute coronary syndrome is very low and he has a heart score of 2. Patient instructed continue with his anticoagulation. Patient to follow-up with his primary care physician in 3 to 5 days. Patient to return if worsening pain, increasing shortness of breath, or condition worsen anyway. Lab Data Labs: Laboratory Results - last 24 hr 10/01/21 10/01/21 10/01/21 14:30 14:30 14:30 WBC 6.2 RBC 5.39 Hgb 16.1 Hct 48.4 MCV 89.8 MCH 29.9 MCHC 33.3 RDW Std Deviation 45.0 H RDW Coeff of Rei 13.7 Plt Count 191 MPV 9.7 Immature Gran % (Auto) 0.500 Neut % (Auto) 70.1 H Lymph % (Auto) 20.5 [place] % (Auto) 7.4 Eos % (Auto) 1.0 Baso % (Auto) 0.5 Absolute Neuts (auto) 4.4 Absolute Lymphs (auto) 1.28 Nucleated RBC % 0 PT 12.4 INR 1.0 Sodium 142 Potassium 4.1 Chloride 110 H Carbon Dioxide 26.0 Anion Gap 6 BUN 20 H Creatinine 1.11 Estim Creat Clear Calc 72.16 Est GFR (MDRD) Af Amer 87 Est GFR (MDRD) Non-Af 72 BUN/Creatinine Ratio 18.0 Glucose 138 H Calcium 8.8 Troponin I High Sens 4 Radiography Chest X-Ray - ED: 1 View Diagnostic Testing: Clinical Impression(s) from Imaging Studies Chest X-Ray 10/01/21 13:45 IMPRESSION: 1. Shallow inspiration and crowding of bronchovascular markings particularly at the LEFT lung base. 2. No evidence of acute cardiopulmonary process Electronically Signed: Blu Urbina MD at 15:54 EST Tel , Service support , Chest CTA 10/01/21 15:52 1 view chest x-ray obtained interpreted by myself as no acute disease process. Radiology in agreement. EKG Initial EKG: Attestation: I personally reviewed and interpreted this EKG as follows: Comments: Sinus tachycardia with a ventricular rate of 119 bpm with no acute ST segment changes. Discharge Plan Triage Chief Complaint: Palpitations ED Provider: Hu Nunez Dx/Rx/DC Orders Clinical Impression: Rapid palpitations, Acute neck pain Instructions: ED Neck Pain, ED Palpitations, ED Tachycardia: PAT Prescriptions: No Action azelastine 0.15 % (205.5 mcg) spray,non-aerosol 1 spray INTRANASAL BID RF: 0 famotidine [Pepcid] 20 mg tablet 20 mg PO DAILY RF: 0 furosemide [Lasix] 20 mg tablet 10 mg PO DAILY PRN (Reason: Edema) RF: 0 diclofenac sodium [Voltaren] 1 % gel 2 g TOPICAL ONCE RF: 0 rosuvastatin [Crestor] 5 mg Tablet 5 mg PO DAILY RF: 0 oxycodone-acetaminophen [Endocet] 5-325 mg tablet 1 tab PO Q6H PRN (Reason: pain) 7 Days Qty: 28 RF: 0 Eliquis 5 mg tablet 10 mg PO BID RF: 0 Primary Care Provider: Brian Dickinson Referrals: Brian Dickinson DO [Primary Care Provider] - 3-5 Days Disposition Disposition: Home, Self Care
[2021-10-01 15:59] VITALS: O2SAT 99
[2021-10-01 16:00] VITALS: BP 135/89; PULSE 92; RESP 15; O2SAT 99
[2021-10-01 17:15] VITALS: BP 137/75; PULSE 88; RESP 16; O2SAT 98
== END 2021-10-01 17:22 | disposition home or self-care (01) ==
PROVIDERS: Emergency Provider Emergency Medicine; PCP Preventive Medicine Occupational Medicine
DX: R00.2 Palpitations (principal); M54.2 Cervicalgia; I82.401 Acute embolism and thrombosis of unspecified deep veins of right lower extremity; E78.5 Hyperlipidemia, unspecified; J45.909 Unspecified asthma, uncomplicated; K21.9 Gastro-esophageal reflux disease without esophagitis; K76.89 Other specified diseases of liver; R06.09 Other forms of dyspnea; E66.9 Obesity, unspecified; G47.00 Insomnia, unspecified; Z79.899 Other long term (current) drug therapy; Z79.01 Long term (current) use of anticoagulants
CPT/HCPCS: 71045; 71275; 80048; 84484; 85025; 85610; 93005; 99284; Q9967; A4216

== ENCOUNTER 2021-11-22 13:30 | Outpatient (RCR) | payer BC, SELFPAY ==
--- NOTE | 2021-10-10 18:27 | HP.PTEVAL_ITS ---
Patient's Visit Information COLIN PENN is a 61 year old M referred to Physical Therapy by Dr. 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 Date of Evaluation: 10/10/21 Physical Therapist: Ger Hua DPT, OCS, CSCS - Visit Plan Frequency: 2x /Week Duration: 3 Months Plan: 2x.week for 4-12 weeks. Pt is currently NWB until at least next week 10/16 doctor visit. Has blood clot in R calf, no massage here. Please focus on ankle ROM, metatarsal ROM, big toe and toe ROM gently. scar massage. Gait progression when allowed slow wean crutches and to wB, and boot wehn allwoed by doctor. Quickly work to machines for R LE as allowed as pt motivated to do this at home on his machines. ice as needed. ankle strength and proprioception. - Subjective 09/01/21 had surgery on R foot to repair hammer toe adn plantar plate tear and tendon tear on 2 toe. This was due to long stadning pain. he walk on concrete 3-5 miles per shift. pain since 2019 after trying orthotics before covid. Pain prior to surgery was up to 9/10 after work. Been NWB with crutches for last 6 weeks. Not much pain lately. Is NWB 6-8 weeks adn will see doctor next week. Sleep is not great as he has to be in boot. hard to sleep in it or get comfortable in recliner. Off work currently and will be off for a while maybe 12 weeks. HEP none. No other precautions other than NWB. Had blood clot in R calf and on thinner for last 2 weeks. Basic ADLs are OK showering and dressing and bathroom. Spends day doing upper body workout, reading studying. Hobbies include computer hobbies but has not tried that lately. - Pain R foot Pain Intensity (Out of 10): 0 Pain Intensity Range: 0, 3 Comment: jsut healing pains - Objective walks with R foot in cam boot 2 crutches NWB on R, 1/2 digit are elevated off boot floor. i with gait NWB. Trasnfers are I. don and doff boot I today. Incision on R 2nd digit is dry and no signs of redness hear or swwelling in foot. Very stiff 1/2 digit on R foot and scar tissue present top of R foot. A ROM big toe ext to 20 and can get to neutral flexion but not past. PROm about the same. 2nd digit is fused interphalanx and very stiff overall, hard to move actively. Metatarsals are stiff on R vs L. AROM R ankle 0 Df to 43 PF adn 20 inv and 10 eversion vs L foor at 5 Df, 55 PF, 28 inv and 20 eversion. Strength at ankles 4/5 PF, DF, inv, ev without pain. Pain if pushes with 1/2 toe into ext or flexion minimally. R LE knee and hip 4-/5 strength vs 4 on L. Able to stand without boot on feet flat but 1/2 digit on R foot elevated adn tends to outsside of R foot. Walks with boot withou AD well today but tends outside of foot and elevated 1 digit into ext. One crutch slightly better, no antalgia. - Balance/Special Test Scores Lower Extremity Functional Score: 17 - Goals Goal 1:: Walk without AD WBAT when allowed without gait deviations Goal Time Frame: 4-6 Weeks Goal 2:: Pateitn sleep without interruption Goal Time Frame: 4-6 Weeks Goal 3:: I apoprop management of condition Goal Time Frame: 6-8 Weeks Goal 4:: Steps reciprocal without rail using forefoot Goal Time Frame: 6-8 Weeks Goal 5:: Pt feel ready to return to work Goal Time Frame: 6-8 Weeks - Rehabilitation Potential Physical Therapy Diagnosis: s/p R foot surgery Rehabilitation Potential: Good - Anticipated Interventions Patient/Client Instruction: Educate patient on: Condition, Plan of Care For the Purpose of:: To decrease pain, To increase ROM Therapeutic Exercise to Include: Strength training, Balance training, Flexibilty training, Gait and locomotor training, Passive ROM, Active ROM For the Purpose of:: To decrease pain, To increase ROM, To improve nutrient delivery to tissue, To improve muscle performance and motor function, To increase tolerance to activity/condition/position, To improve performance and independence with ADL's Manual Therapy Techniques to Include: Scar massage, Mobilization, Passive ROM, Soft tissue mobilization For the Purpose of:: To decrease pain, To increase ROM Cryotherapy (ice pack, ice massage): Yes For the Purpose of:: To decrease swelling/inflammation Thank you for the opportunity to evaluate your patient. For Medicare and Medicare HMO plans, please review the plan of care and approve it. It will need to be FAXED BACK to us at [phone] for Medicare purposes. For Medicare only, by signing this I certify the plan of care. Please let me know if there are questions or concerns regarding this plan of care. Physician Signature: Date:
--- NOTE | 2021-11-14 10:55 | HP.PTREVAL ---
Dr. Jahaira Parrish, DPM, It has been my pleasure to treat COLIN PENN over the last 3 visits for R foot surgery plate repair, hammer toe correction, digitiorus long09/01/21. Please see the progress note below for an update on the physical therapy plan of care! Subjective: Doctor had put lifts in R shoe which may have thrown off his L side and caused back pain. Still on elaquist and will be unti mid November. Only can take tylenol. Not much he could do until weight bearing. Walking on Treadmill for a mile in 30 minutes. Pain is not real bad, at times up to 11/30. Pain in foot is not bad except on TM 11/30. hip can get up to /10 with sitting too long. Lying down at night is comfortable but it wakes him up after 4 hours or so. Steel shank in R shoe to walk FWB R in shoe. Off work until 12/04. Doing upper body exercises at home and sit ups, also doing leg ext and leg curl and SLR on floor. Doing some ROM on R hip. Objective/Function: AROM R ankle 5 DF adn 55 PF and 24 inversion and 25 eversion, near symmetrical with other foot. Strength all motions 4/5. Able to heel raise with steel plate in . Walking is slight avoidance of push off on R corrected immediately with Vc today. Steps are reciprocal without rail and using forefoot. today. Overall doing very well and progressing nicely toward return to wrok on 12/04. SLS is 10 seconds each foot eo, 1-2 seconds B ec. Plan Plan: weekly x 2-4 for progression of walking and strength R ankle and ensure L hip pain improving toward goal of RTW. Next session add ankle strength with band and monitor hip pain,walking progression as needed. Balance/Gait/Functional tests - Balance/Special Test Scores Lower Extremity Functional Score: 17 Goals Goal 1:: Walk without AD WBAT when allowed without gait deviations Goal Time Frame: 4-6 Weeks Goal Progress: Goal Met, with CF plate Goal 2:: Pateitn sleep without interruption Goal Time Frame: 4-6 Weeks Goal Progress: Ok except hip pain Goal 3:: I apoprop management of condition Goal Time Frame: 6-8 Weeks Goal Progress: Progressing Goal 4:: Steps reciprocal without rail using forefoot Goal Time Frame: 6-8 Weeks Goal Progress: Goal Met Goal 5:: Pt feel ready to return to work Goal Time Frame: 6-8 Weeks Goal Progress: 12/04 Anticipated Interventions Patient/Client Instruction: Educate patient on: Condition, Plan of Care For the Purpose of:: To decrease pain, To increase ROM Therapeutic Exercise to Include: Strength training, Balance training, Flexibilty training, Gait and locomotor training, Passive ROM, Active ROM For the Purpose of:: To decrease pain, To increase ROM, To improve nutrient delivery to tissue, To improve muscle performance and motor function, To increase tolerance to activity/condition/position, To improve performance and independence with ADL's Manual Therapy Techniques to Include: Scar massage, Mobilization, Passive ROM, Soft tissue mobilization For the Purpose of:: To decrease pain, To increase ROM Cryotherapy (ice pack, ice massage): Yes For the Purpose of:: To decrease swelling/inflammation Please do not hesitate to contact me at [phone] by phone or if you have questions or concerns regarding this new plan of care! Sincerely, Ger Hua, DPT, OCS, CSCS
--- NOTE | 2021-11-27 13:47 | HP.PTDCNRP_ITS ---
COLIN PENN was seen in my office for initial evaluation on 10/10/21. The following Plan of Care was established for this patient: Initial Frequency: 2x /Week Initial Duration: 3 Months Patient/Client Instruction: Educate patient on: Condition, Plan of Care For the Purpose of:: To decrease pain, To increase ROM Therapeutic Exercise to Include: Strength training, Balance training, Flexibilty training, Gait and locomotor training, Passive ROM, Active ROM For the Purpose of:: To decrease pain, To increase ROM, To improve nutrient delivery to tissue, To improve muscle performance and motor function, To increase tolerance to activity/condition/position, To improve performance and independence with ADL's Manual Therapy Techniques to Include: Scar massage, Mobilization, Passive ROM, Soft tissue mobilization For the Purpose of:: To decrease pain, To increase ROM Cryotherapy (ice pack, ice massage): Yes For the Purpose of:: To decrease swelling/inflammation This patient was last seen in our office 11/22/21. Pertinent comments regarding their Physical therapy will appear below: Pt seen 4 visits of POC and has called to cancel the rest of his visits stating that he is doing great and won't be rescheduling At this point I will be discontinuing this patient from physical therapy. I wou ld be happy to see this patient again in the future if found appropriate by the physician. Thank you! Ger Hua, DPT, OCS, CSCS Balance/Gait/Functional tests - Balance/Special Test Scores Lower Extremity Functional Score: 17
== END 2021-11-22 19:00 | disposition home or self-care (01) ==
LOC: PT 13:30
PROVIDERS: PCP Preventive Medicine Occupational Medicine; Referring Provider Podiatrist; Visit Provider Podiatrist
DX: Z47.89 Encounter for other orthopedic aftercare (principal)
CPT/HCPCS: 97110; 97161; 97164; 97530

== ENCOUNTER 2021-11-27 13:34 | Outpatient (CLI) | payer BC, SELFPAY ==
--- NOTE | 2021-11-27 13:45 | VDLE_ITS ---
Reason For Study: F/U DVT RIGHT GSV is normal. CFV is compressible, spontaneous, phasic, competent and demonstrates normal augmentation. FV is compressible, spontaneous, phasic, competent and demonstrates normal augmentation. POP V is compressible, spontaneous, phasic, competent and demonstrates normal augmentation. T/P Trunk is compressible. PTV is compressible. RT PerV is compressible. RT Solueus V is now compressible. Procedure This is a venous duplex using B-mode, color flow and spectral Doppler. Exam performed in department. A preliminary report was called and/or faxed to Dr. Dickinson @ [phone] @ 2:10 pm. VL/Venous Duplex US, Unilateral Interpretation Summary Deep veins of the right lower extremity are patent and compressible segmentally . There is no evidence of right lower extremity deep vein thrombosis. Valvular competence jane ears intact within the proximal deep venous system on the right . The right great saphenous vein a ppears patent and compressible segmentally. There appears to have been resolution of the acute de ep vein thrombosis in the right soleus vein noted in a prior study on 09/26/2021. Ordering Physician: Brian Dickinson Referring Physician: Brian Dickinson Performed By: Raegan Santos, RDCS, RVT
== END 2021-11-27 23:59 | disposition home or self-care (01) ==
PROVIDERS: PCP Preventive Medicine Occupational Medicine; Referring Provider Preventive Medicine Occupational Medicine; Visit Provider Preventive Medicine Occupational Medicine
DX: I82.409 Acute embolism and thrombosis of unspecified deep veins of unspecified lower extremity (principal)
CPT/HCPCS: 93971

== ENCOUNTER → 2022-03-08 | Outpatient (CLI) | payer BC, SELFPAY ==
[2022-03-08 16:30] LABS: CREATININE FINGERSTICK < 0.9 mg/dL (0.70-1.30); EGFR FINGERSTICK > 60.0000 mL/min (>60)
--- NOTE | 2022-03-08 16:45 | MRI_ITS ---
EXAM: MR HEAD WITHOUT AND WITH INTRAVENOUS CONTRAST, INTERNAL AUDITORY CANAL PROTOCOL CLINICAL INDICATION: LEFT tinnitus and hearing loss TECHNIQUE: Multiplanar and multisequence MR images of the internal auditory canal were obtained without and with intravenous contrast. Magnetic field strength 1.5 T. This report was created using [employer] report [employer] technology. CONTRAST: 20 mL of Dotarem.. COMPARISON: None. FINDINGS: CRANIAL NERVES: Unremarkable. No mass. No abnormal enhancement. COCHLEA AND SEMICIRCULAR CANALS: Unremarkable. CEREBELLOPONTINE ANGLES: Unremarkable. No mass. BRAIN AND EXTRA-AXIAL SPACES: Unremarkable as visualized. No intra- or extra-axial hemorrhage. No intracranial mass or mass effect. There is preservation of the slater/white matter interface. Posterior fossa structures are unremarkable. Ventricles are appropriate for age. No hydrocephalus. Basal cisterns are patent. BONES/JOINTS: Unremarkable. No discrete lytic or blastic abnormalities. SINUSES: Unremarkable as visualized. Clear. MASTOID AIR CELLS: Unremarkable as visualized. Clear. ORBITS: Unremarkable as visualized. Both globes, extraocular muscles, optic nerves and retrobulbar fat appear unremarkable. MRI/Brain W/WO Contrast IMPRESSION: Unremarkable MRI of the internal auditory canal. Electronically Signed: Soy Arizmendi MD at 21:46 EDT ,
== END | disposition home or self-care (01) ==
PROVIDERS: PCP Preventive Medicine Occupational Medicine; Referring Provider Otolaryngology; Visit Provider Otolaryngology
DX: H93.12 Tinnitus, left ear (principal); H91.92 Unspecified hearing loss, left ear; R42 Dizziness and giddiness
CPT/HCPCS: 70553; A9575

== ENCOUNTER → 2022-06-20 | Outpatient (CLI) | payer BC, SELFPAY ==
--- NOTE | 2022-06-20 10:04 | CT_ITS ---
STUDY: CTA HEAD AND NECK WITH CONTRAST REASON FOR EXAM: Male, 62 years old. TINNITUS RADIATION DOSAGE (If Supplied By Facility): CTDIvol = ( 29.64 ) mGy, DLP = ( 1530.16 ) mGycm TECHNIQUE: CT angiography was performed with a multi-detector CT scanner. Data acquisition was obtained from the skull base through the vertex following intravenous administration of IV 100mL [id number]-[id number]. MIP images were reconstructed from the axial data set. Post-processing of the angiographic images was performed, with multiplanar reformation and 3D reconstruction. Individualized dose optimization techniques were used for this CT. COMPARISON: No relevant priors. FINDINGS: Normal bilateral petrous carotid arteries. There is calcified plaque formation of the right cavernous carotid artery, without a cross-sectional luminal stenosis. There is calcified plaque formation of the left cavernous carotid artery, without a cross-sectional luminal stenosis. Normal right A1 segments of the anterior cerebral artery. Normal left A1 segments of the anterior cerebral artery. Normal intact anterior communicating artery (ACOM). Normal bilateral A2 segments of the anterior cerebral arteries. Normal right M1 and M2 segments of the middle cerebral arteries, with a normal M1 bifurcation. Normal left M1 and M2 segments of the middle cerebral arteries, with a normal M1 bifurcation. 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 There is a persistent origin of the left posterior cerebral artery with absence of the posterior communicating artery (PCOM). Normal bilateral vertebral arteries. Normal basilar artery with a normal basilar bifurcation. The visualized bilateral superior cerebellar (SCA) arteries are normal. Normal bilateral P1, P2 and visualized P3 segments of the posterior cerebral arteries. There is no demonstrated aneurysm of the tangirnaq of Dick. There is no demonstrated abnormality of the visualized brain. AORTIC ARCH: Normal visualized aortic arch. Normal origins of the brachiocephalic, left common carotid, and left subclavian arteries. RIGHT CAROTID ARTERIES: Normal right common carotid artery (CCA). Normal right common carotid bulb. There is mild atherosclerotic plaque formation of the origin of the right internal carotid artery with less than 50% cross sectional diameter stenosis. Normal visualized cervical portion of the right internal carotid artery. Normal origin of the right external carotid artery (ECA). LEFT CAROTID ARTERIES: Normal left common carotid artery (CCA). Normal left common carotid bulb. There is mild atherosclerotic plaque formation of the origin of the left internal carotid artery with less than 50% cross sectional diameter stenosis. Normal visualized cervical portion of the left internal carotid artery. Normal origin of the left external carotid artery (ECA). VERTEBRAL ARTERIES: Normal bilateral vertebral arteries. CT/CTA Head AND Neck W/ Contrast IMPRESSION: Minimal calcific plaque formation at the origin of the right and left internal carotid arteries. Electronically Signed: Vernon Stephens MD at 8:24 EDT ,
[2022-06-20 17:31] LABS: EGFR FINGERSTICK > 60.0000 mL/min (>60)
== END | disposition home or self-care (01) ==
PROVIDERS: PCP Preventive Medicine Occupational Medicine; Visit Provider Otolaryngology
DX: H93.11 Tinnitus, right ear (principal); I65.23 Occlusion and stenosis of bilateral carotid arteries
CPT/HCPCS: 70496; 70498; Q9967

== ENCOUNTER → 2022-08-24 | Outpatient (CLI) | payer BC, SELFPAY ==
[2022-08-24 10:58] LABS: Hematocrit 48.9 % (40-54); Hemoglobin 17.1 g/dL (13.0-16.5); Mean Corpuscular Volume 88.6 fL (80-94); Mean Platelet Vol. 9.8 fl (6.2-12.0); Platelet Count 187 K/mm3 (150-450); RBC Distribution Width CV 13.5 % (11.6-14.6); RBC Distribution Width SD 44.2 fl (35.1-43.9); Red Blood Count 5.52 M/mm3 (4.6-6.2); White Blood Count 5.8 K/mm3 (4.4-11.0)
[2022-08-24 11:31] LABS: Anion Gap 5 (5-15); BUN 19 mg/dL (7-18); BUN/Creat Ratio 17.3 RATIO (10-20); Chloride 103 mmol/L (98-107); EST Glomerular Filtration Rate 72 mL/min (>60); Est Glom Filt Rate - Afr Amer 87 mL/min (>60); Glucose 167 mg/dL (74-106); Magnesium 2.4 mg/dL (1.6-2.6); Potassium 3.8 mmol/L (3.5-5.1); Sodium Level 139 mmol/L (136-145); T4 Total, Thyroxin 8.1 ug/dL (4.5-12.1); Thyroid Stim Hormone (TSH) 1.08 uIU/mL (0.358-3.74)
== END | disposition home or self-care (01) ==
LOC: LAB 10:10
PROVIDERS: PCP Preventive Medicine Occupational Medicine; Referring Provider Nurse Practitioner Family; Visit Provider Nurse Practitioner Family
DX: R00.2 Palpitations (principal)
CPT/HCPCS: 36415; 80048; 83735; 84436; 84443; 85027

== ENCOUNTER 2022-08-26 17:27 | Emergency (ER) | payer BC, SELFPAY ==
[2022-08-26 17:28] VITALS: BP 124/102; PULSE 83; RESP 16; TEMP 36.5; O2SAT 100; BMI 30.8
--- NOTE | 2022-08-26 17:50 | EKG12_ITS ---
Test Reason : cp Blood Pressure : / mmHG Vent. Rate : 082 BPM Atrial Rate : 082 BPM P-R Int : 140 ms QRS Dur : 088 ms QT Int : 380 ms P-R-T Axes : 011 055 045 degrees QTc Int : 443 ms Normal sinus rhythm Normal ECG Confirmed by BEAU ELLIS, SARA ([id number]), publishing editor LILLY SUAREZ ([id number]) on 08/29/2022 11:34:16 AM Referred By: Confirmed By:SARA YANEZ MD
--- NOTE | 2022-08-26 18:04 | EDS_ITS ---
HPI History of Present Illness Chief Complaint: Chest Pain Detail of Chief Complaint: Slow heart rate, left anterior lower rib pain and dizziness Informant: patient Onset/Context/Timing Onset: Hours Context: Sudden Onset Timing: Intermittent (Duration of approximately 1 minute) Quality: Ache Location: Anterior chest over ribs 5, 6, 7 and 8 from the parasternal area to the ant Current Severity: Gone Maximum Severity: Moderate Worsened by: Nothing Relieved by: Nothing Associated Symptoms Associated Symptoms: Slow heart rate and dizziness Narrative Narrative: Patient is a 62-year-old male with history of DVT, palpitations, hyperlipidemia who presents because of left anterior chest pain lasted 1 minute associated with slow heart rate, 42, and dizziness . He defines dizziness as a lightheaded like sensation. His was apparently cooking dinner and did not realize if he was or was not pale. He denied nausea and denied diaphoresis. He denies prior episode of slow heart rate with chest pain and dizziness. He states since he is gotten his COVID booster he has noted his heart rate is 10+ beats slower than normal when he works out. He works out on a regular basis. He has no other symptoms when he works out. He denies GI symptoms. He denies symptoms. He denies headache, visual, ocular auditory symptoms. He denies leg pain, swelling or discoloration. [place] black or maroon-colored stool. Prior similar symptoms: No Recent Illness/Hospitalization: No PFSH PFS Medical History Asthma Cardiology follow-up encounter Gastric reflux GERD (gastroesophageal reflux disease) High cholesterol History of DVT (deep vein thrombosis) History of echocardiogram History of Holter monitoring History of stress test Hyperlipidemia Insomnia Non-smoker Obesity Wears glasses Home Medications azelastine 205.5 mcg (0.15 %) nasal spray 1 spray intranasal BID 11/11/17 [History Last Taken Unknown] famotidine 20 mg tablet (Pepcid) 20 mg PO DAILY 10/03/20 [History Last Taken Unknown] diclofenac sodium 1 % topical gel (Voltaren) 2 g topical ONCE 12/28/20 [History Last Taken Unknown] furosemide 20 mg tablet (Lasix) 10 mg PO DAILY PRN Edema 12/28/20 [History Last Taken Unknown] rosuvastatin 5 mg tablet (Crestor) 5 mg PO DAILY 08/25/21 [History Last Taken Unknown] oxycodone-acetaminophen 5 mg-325 mg tablet (Endocet) 1 tab PO Q6H PRN pain 7 days #28 tabs 08/30/21 [Rx Last Taken Unknown] apixaban 5 mg tablet (Eliquis) 10 mg PO BID 10/01/21 [History Last Taken Unknown] Allergy/AdvReac Type Severity Reaction Status Date / Time No Known Allergies Allergy Verified 08/26/22 17:30 Family History Sister Diabetes Mother Diabetes Father Hypertension Surgical History H/O arthroscopy of shoulder History of cholecystectomy Hx of arthroscopy of shoulder right finger cyst excision Social History (Updated 08/26/22 @ 18:[address] Bill Chou MD) household members: spouse Smoking Status: Never smoker substance use type: does not use ROS ROS ED Constitutional Constitutional ED: Denies chills, fever(s), subjective, sweats or weight loss Eyes Eyes: Denies blurry vision, change in vision or diplopia ENT ENT ED: Denies ear pain, rhinorrhea or sore throat Cardiovascular Cardiovascular: Reports chest pain and other Details: Heart rate of 42 ; Denies orthopnea, palpitations, paroxysmal nocturnal dyspnea or racing heartbeat Respiratory/Chest Respiratory/Chest: Denies cough, dyspnea, dyspnea on exertion, orthopnea or paroxysmal nocturnal dyspnea Gastrointestinal Gastrointestinal: Denies abdominal pain, diarrhea, melena, nausea or vomiting Genitourinary Genitourinary ED: Denies dysuria, hematuria or urinary frequency Musculoskeletal Musculoskeletal: Denies arthralgias, back pain, myalgias or neck pain Integumentary Denies Abrasions or rash Neurologic Neurologic: Denies headache(s), paresthesias or weakness Psychiatric Psychiatric: Denies anxiety or depression Hematologic/Lymphatic Hematologic/Lymphatic: Reports systems reviewed and no addt'l complaints, except as documented and none Allergic/Immunologic Allergic/Immunologic ED: Denies mouth swelling, tongue swelling or urticaria EXAM Physical Exam Const Vital Signs: 08/26/22 17:28 08/26/22 19:22 08/26/22 20:00 Temperature 97.7 F L Temperature Source Temporal Pulse Rate 83 73 72 Respiratory Rate 16 16 15 Blood Pressure 124/102 H 123/80 H 116/81 H Blood Pressure Mean 109 94 92 Pulse Ox 100 97 97 Oxygen Delivery Method Room Air Room Air Room Air 08/26/22 21:04 Temperature Temperature Source Pulse Rate 71 Respiratory Rate 17 Blood Pressure 132/82 H Blood Pressure Mean 98 Pulse Ox 97 Oxygen Delivery Method Room Air Positive well nourished and well developed General Appearance ED: well developed and NAD; Negative for pallor HEENT Reports moist mucous membranes HEENT Narrative: Head is atraumatic normocephalic. Ears normal. Nares patent. Uvula midline. No deviation of protrusion. Eyes PERRL and EOMs intact bilaterally General Eye ED: Negative for pale conjunctiva or scleral icterus Neck no lymphadenopathy, supple and no JVD Chest Wall inspection of chest normal and palpation of chest normal Resp normal respiratory effort and clear to auscultation bilaterally Cardio regular rate, regular rhythm, S1 normal heart sound, S2 normal heart sound and no murmurs GI normal to inspection, nondistended, normoactive bowel sounds, non-tender, non- distended and no masses; Negative for hepatosplenomegaly Back/Spine no CVA tenderness Thoracic Spine / Upper Back: thoracic spinal tenderness Lumbar Spine / Lower Back: lumbar spinal tenderness Extremity normal to inspection General Extremety ED: Negative for edema or tenderness General Extremity: Negative for edema Neuro oriented x3, CN's II-XII intact bilaterally and no sensory deficits noted Sensorium / Orientation: alert Motor Exam: strength 5/5 throughout Psych mental status grossly normal Skin no rashes or lesions noted, no wounds and skin turgor normal General Skin Exam: Negative for jaundice or pallor MDM MDM MDM Narrative Medical decision making narrative: Patient with atypical symptoms. This may represent a vasovagal episode. This also may represent anxiety since patient's had to deaths in the family. Since patient does have 2 risk factors for coronary disease EKG, troponin and 2-hour troponin were obtained since he presented with 1/2-hour hour of onset. Doubt pulmonary embolus since there is no pleuritic component and he is on anticoagulant and reports compliance. Lab Data Attestation: I reviewed the patient's lab results. Lab results narrative: Basic metabolic panel is unremarkable. First troponin was 6. Second troponin was 5 with a delta of -1. Since both are less than 7 the results indicate negative predictive value of 100%. Therefore will discharge to home. Labs: Laboratory Results - last 24 hr 08/26/22 08/26/22 08/26/22 17:55 17:55 17:55 WBC 7.1 RBC 5.39 Hgb 15.9 Hct 48.1 MCV 89.2 MCH 29.5 MCHC 33.1 D RDW Std Deviation 43.9 RDW Coeff of Rei 13.4 Plt Count 189 MPV 9.6 Immature Gran % (Auto) 0.300 Neut % (Auto) 49.6 Lymph % (Auto) 39.7 [place] % (Auto) 8.0 Eos % (Auto) 2.0 Baso % (Auto) 0.4 Absolute Neuts (auto) 3.5 Absolute Lymphs (auto) 2.83 Nucleated RBC % 0 Sodium 140 Potassium 4.0 Chloride 106 Carbon Dioxide 28.0 Anion Gap 6 BUN 19 H Creatinine 1.02 Estim Creat Clear Calc 77.53 Est GFR (MDRD) Af Amer 95 Est GFR (MDRD) Non-Af 79 BUN/Creatinine Ratio 18.6 Glucose 94 Calcium 9.3 Troponin I High Sens 6 08/26/22 20:15 WBC RBC Hgb Hct MCV MCH MCHC RDW Std Deviation RDW Coeff of Rei Plt Count MPV Immature Gran % (Auto) Neut % (Auto) Lymph % (Auto) [place] % (Auto) Eos % (Auto) Baso % (Auto) Absolute Neuts (auto) Absolute Lymphs (auto) Nucleated RBC % Sodium Potassium Chloride Carbon Dioxide Anion Gap BUN Creatinine Estim Creat Clear Calc Est GFR (MDRD) Af Amer Est GFR (MDRD) Non-Af BUN/Creatinine Ratio Glucose Calcium Troponin I High Sens 5 EKG Initial EKG: Attestation: I personally reviewed and interpreted this EKG as follows: Interpretation: Sinus Rhythm (Ventricular rate is 82. EKG is normal. [place] interval is 140 ms. QS duration 88 ms for QT duration 280 ms. [place] is normal.) Discharge Plan Triage Chief Complaint: Chest Pain ED Provider: Bill Chou Dx/Rx/DC Orders Clinical Impression: Left-sided chest pain, Bradycardia, Orthostatic lightheadedness Instructions: ED Chest Pain, Noncardiac, ED Bradycardia Prescriptions: No Action azelastine 0.15 % (205.5 mcg) spray,non-aerosol 1 spray INTRANASAL BID famotidine [Pepcid] 20 mg tablet 20 mg PO DAILY furosemide [Lasix] 20 mg tablet 10 mg PO DAILY PRN (Reason: Edema) diclofenac sodium [Voltaren] 1 % gel 2 g TOPICAL ONCE Rx Instructions: apply to single elbow, wrist or hand; for hand includes palm/fingers/back of hand rosuvastatin [Crestor] 5 mg Tablet 5 mg PO DAILY oxycodone-acetaminophen [Endocet] 5-325 mg tablet 1 tab PO Q6H PRN (Reason: pain) 7 Days Qty: 28 0RF Eliquis 5 mg tablet 10 mg PO BID Label Comments: take 2 tablets by mouth twice a day for 7 days then 1 tablet by mouth twice a day Primary Care Provider: Brian Dickinson Referrals: Brian Dickinson DO [Primary Care Provider] - 5-7 Days Disposition Disposition: Home, Self Care
[2022-08-26 18:08] LABS: Absolute Lymphocyte Count 2.83 X10^3/uL (0.83-4.51); Absolute Neutrophil Count 3.5 X10^3/uL (2.0-7.7); Basophil# 0.03 X10^3/uL; Basophil% 0.4 % (0-1); Eosinophil# 0.14 X10^3/uL; Hematocrit 48.1 % (40-54); Hemoglobin 15.9 g/dL (13.0-16.5); Lymphocyte # 2.83 X10^3/ul (0.83-4.51); Lymphocyte % 39.7 % (19-41); Mean Corp Hgb Conc 33.1 g/dL (32-36); Mean Corpuscular Hgb 29.5 pg (27.0-32.0); Mean Corpuscular Volume 89.2 fL (80-94); Mean Platelet Vol. 9.6 fl (6.2-12.0); Monocyte# 0.57 X10^3/uL; NRBC Flagged by Analyzer 0 % (0-5); Neutrophil # 3.53 X10^3/uL (2.7-7.7); Neutrophil % 49.6 % (47-70); Platelet Count 189 K/mm3 (150-450); RBC Distribution Width CV 13.4 % (11.6-14.6); RBC Distribution Width SD 43.9 fl (35.1-43.9); Red Blood Count 5.39 M/mm3 (4.6-6.2); White Blood Count 7.1 K/mm3 (4.4-11.0)
[2022-08-26 18:25] LABS: Anion Gap 6 (5-15); BUN 19 mg/dL (7-18); BUN/Creat Ratio 18.6 RATIO (10-20); Calcium,Total 9.3 mg/dL (8.5-10.1); Chloride 106 mmol/L (98-107); Creatinine, Serum 1.02 mg/dL (0.70-1.30); EST Glomerular Filtration Rate 79 mL/min (>60); Est Glom Filt Rate - Afr Amer 95 mL/min (>60); Estimated Creatinine Clearance 77.53 ml/min; Glucose 94 mg/dL (74-106); Sodium Level 140 mmol/L (136-145)
[2022-08-26 19:22] VITALS: BP 123/80; PULSE 73; RESP 16; O2SAT 97
[2022-08-26 19:49] LABS: Troponin-I HS (w/2H Reflex) 6 pg/mL (3.0-78.0)
[2022-08-26 20:00] VITALS: BP 116/81; PULSE 72; RESP 15; O2SAT 97
[2022-08-26 20:01] LABS: Reflex Troponin-HS? (from REC) Y
[2022-08-26 20:51] LABS: Troponin-I HS 5 pg/mL (3.0-78.0)
[2022-08-26 21:04] VITALS: BP 132/82; PULSE 71; RESP 17; O2SAT 97
== END 2022-08-26 21:43 | disposition home or self-care (01) ==
PROVIDERS: Emergency Provider Emergency Medicine; PCP Preventive Medicine Occupational Medicine; Visit Provider Emergency Medicine
DX: R07.9 Chest pain, unspecified (principal); E78.5 Hyperlipidemia, unspecified; R42 Dizziness and giddiness; R00.1 Bradycardia, unspecified; Z86.718 Personal history of other venous thrombosis and embolism
CPT/HCPCS: 80048; 84484; 85025; 93005; 99283; A4216

== ENCOUNTER → 2022-08-28 | Outpatient (CLI) | payer BC, SELFPAY ==
--- NOTE | 2022-08-28 15:58 | RAD_ITS ---
STUDY: X-RAY CHEST REASON FOR EXAM: Male, 62 years old. CHEST PAIN L SIDED CHEST PAIN TECHNIQUE: XR Chest 2 Views COMPARISON: 10.01.21 FINDINGS: There is no demonstrated pleural abnormality. Normal size heart. Normal mediastinum and jason. Normal visualized pulmonary arteries. Normal visualized aortic arch and descending thoracic aorta. Normal visualized thoracic spine. Normal visualized ribs, clavicles, and shoulders. There is no demonstrated abnormality of the visualized soft tissue structures of the upper abdomen. RAD/Chest PA and Lateral IMPRESSION: There are no acute findings. Electronically Signed: Shan Nguyen MD at 21:26 EST ,
[2022-08-28 16:15] LABS: D-Dimer Quantitative (DVT/PE) 0.28 FEU/ug/m (0.27-0.49)
== END | disposition home or self-care (01) ==
LOC: LAB 15:48
PROVIDERS: PCP Preventive Medicine Occupational Medicine; Referring Provider Nurse Practitioner Primary Care; Visit Provider Nurse Practitioner Primary Care
DX: R07.9 Chest pain, unspecified (principal)
CPT/HCPCS: 36415; 71046; 85379

== ENCOUNTER → 2022-08-30 | Outpatient (CLI) | payer BC, SELFPAY | END | disposition home or self-care (01) | LOC: PSN 08:58 | PROVIDERS: PCP Preventive Medicine Occupational Medicine; Referring Provider Nurse Practitioner Family; Visit Provider Nurse Practitioner Family | DX: R00.2 Palpitations (principal) | CPT/HCPCS: 93225; 93226 ==

== ENCOUNTER → 2022-09-27 | Outpatient (CLI) | payer BC, SELFPAY ==
[2022-09-27 15:40] LABS: Vitamin B12 619 pg/mL (211-911)
[2022-09-27 16:06] LABS: Erythrocyte Sedimentation Rate 5 mm/hr (0-20)
[2022-10-02 16:45] LABS: Vitamin B1, Thiamine 185.8 nmol/L (66.5-200.0)
== END | disposition home or self-care (01) ==
LOC: MTLAB 11:17
PROVIDERS: PCP Preventive Medicine Occupational Medicine; Referring Provider Psychiatry & Neurology Neurology; Visit Provider Psychiatry & Neurology Neurology
DX: R53.83 Other fatigue (principal)
CPT/HCPCS: 36415; 82607; 82746; 84425; 85652

== ENCOUNTER → 2022-10-17 | Outpatient (CLI) | payer BC, SELFPAY ==
--- NOTE | 2022-10-17 11:25 | MRI_ITS ---
MRI of the cervical spine INDICATION: Spinal stenosis TECHNIQUE: MRI of the cervical spine was performed in the sagittal and axial projections utilizing T1-T2 and STIR imaging sequences. FINDINGS: There is loss of normal lordotic curvature possibly due to muscle spasm or positioning artifact. No acute fracture or subluxation. C2-3: Normal disc space height and morphology. Normal central canal and bilateral neural foramina C3-4: Normal disc space height and disc morphology. Normal central canal bilateral neural foramina C4-5: Normal disc space height with bulging of the disc and left posterolateral/foraminal disc/osteophyte protrusion. Mild narrowing of the central canal. Severe left neural foraminal stenosis C5-6: Narrowed disc space and mild endplate spurring. Bulging disc osteophyte complex and right foraminal disc/osteophyte protrusion. Mild narrowing of the central canal. Mild to moderate left neural foraminal stenosis and severe narrowing on the right secondary to disc and bony hypertrophy. C6-7: Normal disc space height and minor bulging of the disc. Normal central canal and bilateral neural foramina Cervical cord is normal size and homogeneous signal intensity MRI/Spine Cervical (Routine) IMPRESSION: No evidence for acute fracture or other significant bony pathology. Mild spondylosis and degenerative disc disease most severe at C4-5 and C5-6. Findings as above Electronically Signed: Daniel Yun MD at 22:24 EST Reading Location ID and State: [facility] / [place] , Service support ,
== END | disposition home or self-care (01) ==
LOC: MRI 10:51
PROVIDERS: PCP Preventive Medicine Occupational Medicine; Referring Provider Psychiatry & Neurology Neurology; Visit Provider Psychiatry & Neurology Neurology
DX: R26.9 Unspecified abnormalities of gait and mobility (principal); R29.2 Abnormal reflex
CPT/HCPCS: 72141

== ENCOUNTER 2022-11-06 11:03 | Emergency (ER) | payer OTHER, SELFPAY ==
[2022-11-06 11:04] VITALS: BP 165/92; PULSE 111; RESP 16; TEMP 36.4; O2SAT 99; BMI 30.8
--- NOTE | 2022-11-06 11:24 | EKG12_ITS ---
Test Reason : Blood Pressure : / mmHG Vent. Rate : 098 BPM Atrial Rate : 098 BPM P-R Int : 144 ms QRS Dur : 088 ms QT Int : 336 ms P-R-T Axes : 262 056 028 degrees QTc Int : 428 ms Unusual P axis, possible ectopic atrial rhythm Abnormal ECG Confirmed by BEAU ELLIS, SARA ([id number]), editor publications LILLY SUAREZ ([id number]) on 11/07/2022 2:47:00 PM Referred By: Confirmed By:SARA YANEZ MD
[2022-11-06 11:39] VITALS: BP 158/88; PULSE 103; RESP 12; O2SAT 100
[2022-11-06 11:42] LABS: Absolute Lymphocyte Count 2.13 X10^3/uL (0.83-4.51); Absolute Neutrophil Count 2.7 X10^3/uL (2.0-7.7); Basophil# 0.03 X10^3/uL; Basophil% 0.5 % (0-1); Eosinophil# 0.09 X10^3/uL; Eosinophils% 1.6 % (0-5); Hematocrit 47.5 % (40-54); Hemoglobin 15.9 g/dL (13.0-16.5); Lymphocyte # 2.13 X10^3/ul (0.83-4.51); Lymphocyte % 38.9 % (19-41); Mean Corp Hgb Conc 33.5 g/dL (32-36); Mean Corpuscular Hgb 29.8 pg (27.0-32.0); Mean Corpuscular Volume 89.1 fL (80-94); Mean Platelet Vol. 9.3 fl (6.2-12.0); Monocyte% 9.1 % (0-10); NRBC Flagged by Analyzer 0 % (0-5); Neutrophil % 49.4 % (47-70); Platelet Count 193 K/mm3 (150-450); RBC Distribution Width CV 13.3 % (11.6-14.6); RBC Distribution Width SD 43.4 fl (35.1-43.9); Red Blood Count 5.33 M/mm3 (4.6-6.2); White Blood Count 5.5 K/mm3 (4.4-11.0)
[2022-11-06 11:52] VITALS: BP 146/80; BP 152/88; BP 165/91; PULSE 100; PULSE 103; PULSE 99
[2022-11-06 12:00] LABS: AST(SGOT) 20 U/L (15-37); Alanine Aminotransfer ALT/SGPT 40 U/L (16-61); Albumin, Serum 3.9 g/dL (3.2-5.0); Alkaline Phosphatase 59 U/L (45-117); Anion Gap 6 (5-15); BUN 21 mg/dL (7-18); BUN/Creat Ratio 19.6 RATIO (10-20); Chloride 108 mmol/L (98-107); Creatinine, Serum 1.07 mg/dL (0.70-1.30); D-Dimer Quantitative (DVT/PE) < 0.27 FEU/ug/m (0.27-0.49); EST Glomerular Filtration Rate 74 mL/min (>60); Est Glom Filt Rate - Afr Amer 90 mL/min (>60); Estimated Creatinine Clearance 73.91 ml/min; Globulin 3.8 g/dL (2.2-4.2); Glucose 130 mg/dL (74-106); Potassium 3.9 mmol/L (3.5-5.1); Protein, Total 7.7 g/dL (6.4-8.2); Sodium Level 140 mmol/L (136-145); Troponin-I HS (w/2H Reflex) 4 pg/mL (3.0-78.0)
--- NOTE | 2022-11-06 12:14 | EDS_ITS ---
HPI History of Present Illness Chief Complaint: Weakness Narrative Narrative: 62-year-old male presenting with an episode of lightheadedness. He states he currently sees Dr. 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 Patient states that this was episode was different. He states he was just up getting an apple and when he sat back down he started to feel lightheaded just sitting in his chair. He states he had no chest pain or shortness of breath. He did not get nauseous or diaphoretic. Patient does report that he is currently wearing a guardian heart monitor. He states he has 1 week left of wearing it. He states this was given by Dr. Moran. This is due to the patient's history of bradycardia in the past. Appears in August he was seen for bradycardia and orthostatic hypotension. Patient also reports a history of anxiety as well. [facility] Medical History (Updated 11/06/22 @ 15:[address] Suleman Gomez, DO) Asthma Cardiology follow-up encounter Gastric reflux GERD (gastroesophageal reflux disease) High cholesterol High triglycerides History of blood clots History of DVT (deep vein thrombosis) History of echocardiogram History of Holter monitoring History of stress test Hyperlipidemia Insomnia Non-smoker Obesity Osteoarthritis Seasonal allergies Wears glasses Home Medications azelastine 205.5 mcg (0.15 %) nasal spray 1 spray intranasal BID 11/11/17 [History Last Taken Unknown] famotidine 20 mg tablet (Pepcid) 20 mg PO DAILY 10/03/20 [History Last Taken Unknown] rosuvastatin 5 mg tablet (Crestor) 5 mg PO DAILY 08/25/21 [History Last Taken Unknown] buspirone 5 mg tablet 5 mg PO BID #60 tabs 09/27/22 [Rx Last Taken Unknown] loratadine 10 mg tablet 10 mg PO DAILY #30 tabs 09/27/22 [Rx Last Taken Unknown] meclizine 12.5 mg tablet 12.5 mg PO TID PRN 09/27/22 [History Last Taken Unknown] montelukast 10 mg tablet (Singulair) 10 mg PO DAILY PRN 09/27/22 [History Last Taken Unknown] Allergy/AdvReac Type Severity Reaction Status Date / Time No Known Allergies Allergy Verified 09/27/22 09:59 Family History (Updated 09/27/22 @ 10:23 by Daphney Deluna) Sister Diabetes Cancer Mother Diabetes Arthritis Heart disease Father Hypertension Arthritis Colon cancer High cholesterol Brother Kidney disease Surgical History H/O arthroscopy of shoulder History of cholecystectomy History of foot surgery Hx of arthroscopy of shoulder right finger cyst excision Social History household members: spouse Smoking Status: Never smoker second hand exposure: No alcohol intake: current substance use type: does not use what type of physical activity do you participate in: walking and other frequency: 3-4 times per week ne/adventist: Quaker seatbelt use: always ROS ROS ED Constitutional Constitutional ED: Denies chills or fever(s) Eyes Eyes: Denies change in vision or diplopia ENT ENT ED: Denies rhinorrhea or sore throat Cardiovascular Cardiovascular: Reports palpitations and racing heartbeat; Denies chest pain Respiratory/Chest Respiratory/Chest: Denies cough or dyspnea Gastrointestinal Gastrointestinal: Denies abdominal pain or constipation Genitourinary Genitourinary ED: Denies dysuria or hematuria Musculoskeletal Musculoskeletal: Denies arthralgias Integumentary Denies abscess or Abrasions Neurologic Neurologic: Denies headache(s) Psychiatric Psychiatric: Reports anxiety; Denies depression EXAM Physical Exam Const Vital Signs: 11/06/22 11:04 11/06/22 11:14 11/06/22 11:39 Temperature 97.5 F L Temperature Source Temporal Pulse Rate 111 H 103 H Pulse Rate [Lying] Pulse Rate [Sitting (for 1 minute prior to obtaining)] Pulse Rate [Standing (for 1 minute prior to obtaining)] Respiratory Rate 16 12 Respiratory Effort Normal Non-Labored Respiratory Pattern Normal Blood Pressure 165/92 H 158/88 H Blood Pressure [Lying] Blood Pressure [Sitting (for 1 minute prior to obtaining)] Blood Pressure [Standing (for 1 minute prior to obtaining)] Blood Pressure Mean 116 111 Blood Pressure Mean [Lying] Blood Pressure Mean [Sitting (for 1 minute prior to obtaining)] Blood Pressure Mean [Standing (for 1 minute prior to obtaining)] Pulse Ox 99 100 Oxygen Delivery Method Room Air Room Air 11/06/22 11:52 11/06/22 13:04 Temperature Temperature Source Pulse Rate 91 Pulse Rate [Lying] 99 Pulse Rate [Sitting (for 1 minute prior to obtaining)] 103 H Pulse Rate [Standing (for 1 minute prior to obtaining)] 100 Respiratory Rate 14 Respiratory Effort Respiratory Pattern Blood Pressure 125/76 H Blood Pressure [Lying] 146/80 H Blood Pressure [Sitting (for 1 minute prior to obtaining)] 165/91 H Blood Pressure [Standing (for 1 minute prior to obtaining)] 152/88 H Blood Pressure Mean 92 Blood Pressure Mean [Lying] 102 Blood Pressure Mean [Sitting (for 1 minute prior to obtaining)] 115 Blood Pressure Mean [Standing (for 1 minute prior to obtaining)] 109 Pulse Ox 100 Oxygen Delivery Method Room Air Positive well nourished General Appearance ED: NAD HEENT Reports moist mucous membranes Eyes PERRL and EOMs intact bilaterally Neck no lymphadenopathy Chest Wall inspection of chest normal and palpation of chest normal Resp normal respiratory effort Auscultation: Negative for rales, rhonchi or wheezes Cardio regular rate and regular rhythm GI normal to inspection, nondistended, normoactive bowel sounds Back/Spine no CVA tenderness Neuro oriented x3 and CN's II-XII intact bilaterally Sensorium / Orientation: alert Sensory Exam: sensory level loss detected Psych mental status grossly normal Skin no rashes or lesions noted and no wounds MDM MDM MDM Narrative Medical decision making narrative: 62-year-old male presenting with an episode of lightheadedness. He has a longstanding history of palpitations, lightheadedness, disequilibrium, palpitations, bradycardia, M?ni?re's disease. He is describing episode of lightheadedness and not vertiginous dizziness. He did deny any chest pain or shortness of breath. He states I just fell off for a few seconds. He did not fall or injure himself. He has been otherwise well. Patient also has a history of DVT in the past. Smokes differential broad. Patient is currently wearing a monitor which he has been wearing for about 3 weeks. He states this was placed by Dr. Estes due to orthostatic hypotension and was seen in the emergency room for this in August 2022. He has not seen cardiology yet. CBC was obtained to assess for anemia and to see his differential and his CBC is fairly normal with a white blood count of 5.5. Stable hemoglobin 15.9. Platelets are normal at 193. CMP to assess for renal function and electrolytes and this is fairly unremarkable as well. I do note he has a mildly elevated glucose of 130 without anion gap. Creatinine at baseline 1.07. EKG was obtained to assess for dysrhythmia and his EKG shows a sinus rhythm with a ventricular rate of 98 bpm without sign of ischemic change. Chest x-ray with on my interpretation shows no acute cardiopulmonary process. Radiologist are present and agrees. Orthostatic vital signs are normal. High-sensitivity troponin initially was 4 and 2-hour troponin is 5. D-dimer negative. Patient maintains normal vital signs and is w ell-appearing. I was able to see the report from his caddy packer and there only appears to be 1 episode of nonsustained V. tach for about 5 beats 2 days ago which does not correlate with his symptoms. I spoke with Dr. Caputo about this and since this is only an isolated short run without any symptoms during that episode and no episodes of irregular rhythm where he was symptomatic and awake he recommended outpatient follow-up as long as his cardiac work-up was normal. His work-up was ultimately negative here today. Discussed this at length with the patient and he will follow-up outpatient with the heart group for echocardiogram. impression: 1. Lightheadedness 2. History of bradycardia 3. Nonsustained VT Lab Data Attestation: I reviewed the patient's lab results. Labs: Laboratory Results - last 24 hr 11/06/22 11/06/22 11/06/22 11:30 11:30 11:30 WBC 5.5 RBC 5.33 Hgb 15.9 Hct 47.5 MCV 89.1 MCH 29.8 MCHC 33.5 RDW Std Deviation 43.4 RDW Coeff of Rei 13.3 Plt Count 193 MPV 9.3 Immature Gran % (Auto) 0.500 Neut % (Auto) 49.4 Lymph % (Auto) 38.9 [place] % (Auto) 9.1 Eos % (Auto) 1.6 Baso % (Auto) 0.5 Absolute Neuts (auto) 2.7 Absolute Lymphs (auto) 2.13 Nucleated RBC % 0 D-Dimer Quant (PE/DVT) < 0.27 L Sodium 140 Potassium 3.9 Chloride 108 H Carbon Dioxide 26.0 Anion Gap 6 BUN 21 H Creatinine 1.07 Estim Creat Clear Calc 73.91 Est GFR (MDRD) Af Amer 90 Est GFR (MDRD) Non-Af 74 BUN/Creatinine Ratio 19.6 Glucose 130 H Calcium 9.0 Total Bilirubin 1.10 H AST 20 ALT 40 Alkaline Phosphatase 59 Troponin I High Sens 4 Total Protein 7.7 Albumin 3.9 Globulin 3.8 Albumin/Globulin Ratio 1.0 11/06/22 14:00 WBC RBC Hgb Hct MCV MCH MCHC RDW Std Deviation RDW Coeff of Rei Plt Count MPV Immature Gran % (Auto) Neut % (Auto) Lymph % (Auto) [place] % (Auto) Eos % (Auto) Baso % (Auto) Absolute Neuts (auto) Absolute Lymphs (auto) Nucleated RBC % D-Dimer Quant (PE/DVT) Sodium Potassium Chloride Carbon Dioxide Anion Gap BUN Creatinine Estim Creat Clear Calc Est GFR (MDRD) Af Amer Est GFR (MDRD) Non-Af BUN/Creatinine Ratio Glucose Calcium Total Bilirubin AST ALT Alkaline Phosphatase Troponin I High Sens 5 Total Protein Albumin Globulin Albumin/Globulin Ratio Discharge Plan Triage Chief Complaint: Weakness ED Provider: Suleman Gomez Dx/Rx/DC Orders Clinical Impression: Lightheadedness Instructions: ED Weakness (Uncertain Cause) Prescriptions: No Action azelastine 0.15 % (205.5 mcg) spray,non-aerosol 1 spray INTRANASAL BID famotidine [Pepcid] 20 mg tablet 20 mg PO DAILY meclizine 12.5 mg tablet 12.5 mg PO TID PRN montelukast [Singulair] 10 mg tablet 10 mg PO DAILY PRN loratadine 10 mg tablet 10 mg PO DAILY Qty: 30 5RF buspirone 5 mg tablet 5 mg PO BID Qty: 60 5RF rosuvastatin [Crestor] 5 mg Tablet 5 mg PO DAILY Primary Care Provider: Brian Dickinson Referrals: John Caputo MD [Med Staff - Active Staff] - As soon as possible Brian Dickinson DO [Primary Care Provider] - Disposition Disposition: Home, Self Care Discharge Date/Time: 11/06/22 15:22
--- NOTE | 2022-11-06 12:30 | ED.RN ---
PT'S SPOUSE CALLED RN TO ROOM, PT COMPLAINING OF FEELING LIKE I'M GOING TO PASS OUT. PT'S BLOOD PRESSURE REMAINED STABLE, HEART RATE INCREASED SLIGHTLY, COLOR REMAINED NORMAL, NO DIAPHORESIS NOTED. PT REASSURED VITALS ARE STABLE AND WILL CONTINUE TO MONITOR.
[2022-11-06 13:04] VITALS: BP 125/76; PULSE 91; RESP 14; O2SAT 100
[2022-11-06 13:38] LABS: Reflex Troponin-HS? (from REC) Y
[2022-11-06 14:24] LABS: Troponin-I HS 5 pg/mL (3.0-78.0)
== END 2022-11-06 15:22 | disposition home or self-care (01) ==
PROVIDERS: Emergency Provider Student in an Organized Health Care Education/Training Program; PCP Preventive Medicine Occupational Medicine; Visit Provider Student in an Organized Health Care Education/Training Program
DX: R00.1 Bradycardia, unspecified (principal); E78.5 Hyperlipidemia, unspecified; I95.1 Orthostatic hypotension; R42 Dizziness and giddiness; F41.9 Anxiety disorder, unspecified
CPT/HCPCS: 80053; 84484; 85025; 85379; 93005; 99284; A4216

== ENCOUNTER → 2022-11-15 | Outpatient (CLI) | payer OTHER, SELFPAY ==
--- NOTE | 2022-11-15 12:33 | ECHOD_ITS ---
Reason For Study: Lightheadedness, episode of non sustained VTach Procedure This was a 2D Doppler, Color Flow transthoracic echocardiogram. The study was technically difficult. Exam performed in department. Left Ventricle Normal LV size. Left ventricular systolic function is normal. The estimated ejection fraction is 65 %. No evidence for diastolic dysfunction. No regional wall motion abnormalities noted. Right Ventricle Normal RV size. Normal systolic function. Atria Normal left atrium. Normal right atrium. No doppler evidence for ASD. Mitral Valve There is no mitral annular calcification. Normal mitral valve. Trivial mitral valve insufficiency. Tricuspid Valve Normal tricuspid valve. Trivial tricuspid valve insufficiency. Unable to estimate RV systolic pressure/pulmonary artery pressure due to technically difficult study. Aortic Valve Trisinus/trileaflet aortic valve. Mild focal aortic valve calcification. Pulmonic Valve The pulmonic valve is not well visualized. Great Vessels Normal sized aortic root. Pericardium/Pleural No pericardial effusion. MMode/2D Measurements & Calculations LVIDd: 4.3 cm IVSd: 1.1 cm Ao root diam: 3.4 cm LVIDs: 3.1 cm LVPWd: 1.1 cm LA dimension: 4.4 cm RVDd: 4.2 cm FS: 28.7 % LAV(MOD-bp): 64.8 ml LA A4 area: 18.7 cm2 RA A4 area: 18.7 cm2 LAV(MOD-bp) Indexed: 30.1 ml/m2 LAV(MOD-sp2): 75.8 ml LAV(MOD-sp4): 52.3 ml Time Measurements MV dec time: 0.27 sec Doppler Measurements & Calculations MV E max dhaval: 52.5 cm/sec Lat Peak E' Dhaval: 9.5 cm/sec Med Peak E' Dhaval: 12.0 cm/sec MV A max dhaval: 79.6 cm/sec E/E' lat: 5.5 E/E' med: 4.4 MV E/A: 0.66 MV V2 max: 80.6 cm/sec MV P1/2t max dhaval: 57.1 cm/sec Ao V2 max: 116.9 cm/sec MV max P.6 mmHg MV P1/2t: 68.1 msec Ao max P.5 mmHg MV V2 mean: 43.4 cm/sec MV dec slope: 245.6 cm/sec2 MV mean P.88 mmHg MVA(P1/2t): 3.2 cm2 MV V2 VTI: 18.0 cm LV V1 max: 67.8 cm/sec PA V2 max: 118.3 cm/sec LV V1 max P.8 mmHg PA V2 mean: 90.4 cm/sec ECHO/Echo Complete Interpretation Summary The study was technically difficult. Left ventricular systolic function is normal. The estimated ejection fraction is 65 %. Trivial mitral valve insufficiency. Trivial tricuspid valve insufficiency. Mild focal aortic valve calcification. Unable to estimate RV systolic pressure/pulmonary artery pressure due to techni jayda difficult study. No evidence for diastolic dysfunction. Ordering Physician: Rc Estes Referring Physician: Brian Dickinson Performed By: Parviz Newby RCS
== END | disposition home or self-care (01) ==
PROVIDERS: PCP Preventive Medicine Occupational Medicine; Visit Provider Psychiatry & Neurology Neurology
DX: R42 Dizziness and giddiness (principal); I47.29 Other ventricular tachycardia
CPT/HCPCS: 93306

== ENCOUNTER → 2023-01-15 | Outpatient (CLI) | payer OTHER, SELFPAY ==
--- NOTE | 2023-01-15 08:54 | RAD_ITS ---
STUDY: X-RAY - ESOPHAGUS (BARIUM SWALLOW) WITH FLUOROSCOPY REASON FOR EXAM: Male, 62 years old. Acid reflux TECHNIQUE: 19 view(s) of the esophagus were obtained following swallowing of barium. FLUOROSCOPY TIME (if supplied): (66 seconds) minutes/seconds. 42.89 mGy COMPARISON: None. FINDINGS: There is no demonstrated esophageal foreign body. There is no demonstrated stricture or mucosal abnormality. Normal gastroesophageal junction, without a demonstrated hiatal hernia. The patient ingest a 12 mm tablet of barium. The tablet is trapped at the gastroesophageal junction. Normal visualized aortic arch and descending thoracic aorta. Normal visualized pulmonary parenchyma. Normal visualized osseous structures of the thorax. RAD/Esophagus Dual Contrast IMPRESSION: The patient ingested a 12 mm tablet of barium. The tablet is trapped at the gastroesophageal junction. Electronically Signed: Vernon Stephens MD at 9:45 EDT ,
== END | disposition home or self-care (01) ==
PROVIDERS: PCP Preventive Medicine Occupational Medicine; Referring Provider Preventive Medicine Occupational Medicine; Visit Provider Preventive Medicine Occupational Medicine
DX: K21.9 Gastro-esophageal reflux disease without esophagitis (principal)
CPT/HCPCS: 74221

== ENCOUNTER → 2023-02-04 | Outpatient (CLI) | payer OTHER, SELFPAY ==
[2023-02-04 17:00] LABS: Hemoglobin A1c 5.5 % (3.8-5.6)
== END | disposition home or self-care (01) ==
PROVIDERS: PCP Preventive Medicine Occupational Medicine; Referring Provider Psychiatry & Neurology Neurology; Visit Provider Psychiatry & Neurology Neurology
DX: R73.9 Hyperglycemia, unspecified (principal)
CPT/HCPCS: 36415; 83036

== ENCOUNTER 2023-02-14 03:34 | Emergency (ER) | payer OTHER, SELFPAY ==
--- NOTE | 2023-02-14 03:35 | EKG12_ITS ---
Test Reason : DYSRHYTHMIA Blood Pressure : / mmHG Vent. Rate : 089 BPM Atrial Rate : 089 BPM P-R Int : 138 ms QRS Dur : 086 ms QT Int : 374 ms P-R-T Axes : 019 057 043 degrees QTc Int : 455 ms Normal sinus rhythm Normal ECG Confirmed by IKER ELLIS, VIDAL ([id number]), scientific editor LILLY SUAREZ ([id number]) on 02/18/2023 11:36:09 AM Referred By: CORBY Confirmed By:BALDOMERO DONG MD
[2023-02-14 03:36] VITALS: BP 146/81; PULSE 87; RESP 16; TEMP 36.6; O2SAT 100; BMI 32.5
--- NOTE | 2023-02-14 04:06 | RAD_ITS ---
INDICATION: palpitations EXAMINATION/TECHNIQUE: X-RAY - XR Chest 2 Views COMPARISON: 08/28/2022 FINDINGS: LINES/DEVICES: None. LUNGS: No consolidation. No pneumothorax. MEDIASTINUM: Unremarkable. CARDIAC SILHOUETTE: Not enlarged. BONES AND SOFT TISSUES: No acute abnormalities. Surgical clips in the right upper abdomen previous cholecystectomy. RAD/Chest PA and Lateral IMPRESSION: No evidence of active intrathoracic disease. Electronically Signed: Mitzi Sainz MD at 4:43 EDT ,
[2023-02-14 04:14] LABS: Absolute Lymphocyte Count 2.62 X10^3/uL (0.83-4.51); Absolute Neutrophil Count 2.3 X10^3/uL (2.0-7.7); Basophil# 0.04 X10^3/uL; Basophil% 0.7 % (0-1); Eosinophil# 0.16 X10^3/uL; Eosinophils% 2.8 % (0-5); Hematocrit 46.6 % (40-54); Hemoglobin 15.5 g/dL (13.0-16.5); Lymphocyte # 2.62 X10^3/ul (0.83-4.51); Mean Corp Hgb Conc 33.3 g/dL (32-36); Mean Corpuscular Hgb 30.2 pg (27.0-32.0); Mean Corpuscular Volume 90.7 fL (80-94); Mean Platelet Vol. 9.4 fl (6.2-12.0); Monocyte% 10.5 % (0-10); NRBC Flagged by Analyzer 0 % (0-5); Neutrophil # 2.26 X10^3/uL (2.7-7.7); Neutrophil % 39.8 % (47-70); Platelet Count 171 K/mm3 (150-450); RBC Distribution Width CV 13.1 % (11.6-14.6); RBC Distribution Width SD 43.6 fl (35.1-43.9); Red Blood Count 5.14 M/mm3 (4.6-6.2); White Blood Count 5.7 K/mm3 (4.4-11.0)
[2023-02-14 04:39] LABS: Anion Gap 2 (5-15); BUN 25 mg/dL (7-18); Calcium,Total 8.7 mg/dL (8.5-10.1); Chloride 106 mmol/L (98-107); Creatinine, Serum 0.96 mg/dL (0.70-1.30); EST Glomerular Filtration Rate 84 mL/min (>60); Est Glom Filt Rate - Afr Amer 102 mL/min (>60); Estimated Creatinine Clearance 82.38 ml/min; Glucose 121 mg/dL (74-106); Magnesium 2.1 mg/dL (1.6-2.6); Potassium 4.2 mmol/L (3.5-5.1); Sodium Level 136 mmol/L (136-145); Thyroid Stim Hormone (TSH) 2.39 uIU/mL (0.358-3.74)
[2023-02-14 05:13] LABS: Troponin-I HS 4 pg/mL (3.0-78.0)
--- NOTE | 2023-02-14 05:32 | EDS_ITS ---
HPI History of Present Illness Chief Complaint: General Illness Informant: patient and spouse/S.O. Narrative Narrative: Patient is a 62-year-old male who reports a past medical history of M?ni?re's disease. He states his evening he was sleeping when he awoke with sensation of not feeling right. He states that he felt like he was having some palpitations and that he was sweaty. He denies any true chest pain and states that there is no associated nausea vomiting or diarrhea. He states that he was unsure if this was related to M?ni?re's disease or his heart and secondary to this presents for evaluation [facility] Medical History (Updated 02/14/23 @ 05:[address] Bandar Kasper, DO) Asthma Cardiology follow-up encounter DVT (deep venous thrombosis) Gastric reflux GERD (gastroesophageal reflux disease) High cholesterol High triglycerides History of blood clots History of DVT (deep vein thrombosis) History of echocardiogram History of Holter monitoring History of stress test Hyperlipidemia Insomnia Migraines Non-smoker Obesity Osteoarthritis Osteoporosis Seasonal allergies Wears glasses Home Medications rosuvastatin 5 mg tablet (Crestor) 5 mg PO QHS 08/25/21 [History Last Taken Unknown] montelukast 10 mg tablet (Singulair) 10 mg PO DAILY PRN allergies 09/27/22 [History Last Taken Unknown] azelastine 205.5 mcg (0.15 %) nasal spray 1 spray intranasal BID PRN allergies 12/19/22 [History Last Taken Unknown] meclizine 25 mg tablet 25 mg PO BID #60 tabs 01/29/23 [Rx Last Taken Unknown] loratadine 10 mg tablet 10 mg PO DAILY 02/14/23 [History Last Taken Unknown] multivitamin with minerals-folic acid 12 mcg chewable tablet (Centrum Adults) 1 tab PO DAILY 02/14/23 [History Last Taken Unknown] omeprazole 20 mg capsule,delayed release 20 mg PO QODAY 02/14/23 [History Last Taken Unknown] Allergy/AdvReac Type Severity Reaction Status Date / Time No Known Allergies Allergy Verified 01/29/23 13:37 Family History Sister Diabetes Cancer Mother Diabetes Arthritis Heart disease Father Hypertension Arthritis Colon cancer High cholesterol Brother Kidney disease Surgical History H/O arthroscopy of shoulder History of cholecystectomy History of foot surgery Hx of arthroscopy of shoulder right finger cyst excision Social History household members: spouse Smoking Status: Never smoker second hand exposure: No alcohol intake: current substance use type: does not use what type of physical activity do you participate in: walking and other frequency: 3-4 times per week ne/denominational: Confucianism seatbelt use: always ROS ROS ED Constitutional Constitutional ED: Denies chills or fever(s) Eyes Eyes: Denies diplopia ENT ENT ED: Denies sore throat Cardiovascular Cardiovascular: Reports palpitations and racing heartbeat; Denies chest pain Respiratory/Chest Respiratory/Chest: Denies cough or dyspnea Gastrointestinal Gastrointestinal: Denies abdominal pain, diarrhea, nausea or vomiting Genitourinary Genitourinary ED: Denies dysuria Musculoskeletal Musculoskeletal: Denies myalgias Integumentary Denies rash Neurologic Neurologic: Denies headache(s), paresthesias or weakness Hematologic/Lymphatic Hematologic/Lymphatic: Denies easy bleeding or easy bruising EXAM Physical Exam Const Vital Signs: 02/14/23 03:36 02/14/23 03:40 Temperature 97.9 F Temperature Source Oral Pulse Rate 87 Respiratory Rate 16 Respiratory Pattern Normal Blood Pressure 146/81 H Blood Pressure Mean 102 Pulse Ox 100 Oxygen Delivery Method Room Air Positive well nourished and well developed General Appearance ED: well developed HEENT Reports moist mucous membranes Eyes PERRL and EOMs intact bilaterally Neck supple Neck Narrative: Carotid pulses are plus 2 out of 4 bilaterally are equal and symmetric Resp normal respiratory effort and clear to auscultation bilaterally Cardio regular rate and regular rhythm Rate: other Other Details: Radial pulses are plus 2 out of 4 bilaterally are equal and No murmurs rubs gallops or friction rub noted. No ectopic beats noted GI normal to inspection, nondistended, normoactive bowel sounds, non-tender, non- distended and no masses GI Narrative: No voluntary guarding or rigidity. No pulsatile mass or fluid wave Auscultation: normoactive bowel sounds Palpation: soft Extremity normal to inspection Extremity Narrative: No asymmetric edema no pitting edema negative Homans' sign bilaterally Neuro oriented x3 and CN's II-XII intact bilaterally Neuro Narrative: Cranial nerves II through XII are grossly intact there are no focal neurologic deficit. No pronator drift no dysmetria no truncal ataxia. NIH stroke scale score of 0. There is mild horizontal nystagmus noted Sensorium / Orientation: alert Psych Psych Narrative: Patient has a nervous/anxious affect Skin no rashes or lesions noted MDM MDM MDM Narrative Medical decision making narrative: Patient presented to the ER with stable vitals. Neurologic exam is normal as well. Constellation of symptoms is nonspecific and could be related to M?ni?re's disease but also could be secondary to a cardiac dysrhythmia electrolyte derangement anemia or acute kidney injury or even acute coronary syndrome. Secondary to his basic work-up was performed. Labs revealed no clinically significant findings. Chest x-ray revealed no acute lung pathology. As a stroke scale score is 0 there is no need for head CT. Patient was informed that his work-up reveals no acute findings as a cause of his symptoms and that this could be related to anxiety or even his M?ni?re's disease. 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 History & Record Review Discussion w/independent historian: Patient and Family Lab Data Attestation: I reviewed the patient's lab results. Labs: Laboratory Results - last 24 hr 02/14/23 02/14/23 02/14/23 04:09 04:09 04:09 WBC 5.7 RBC 5.14 Hgb 15.5 Hct 46.6 MCV 90.7 MCH 30.2 MCHC 33.3 RDW Std Deviation 43.6 RDW Coeff of Rei 13.1 Plt Count 171 MPV 9.4 Immature Gran % (Auto) 0.200 Neut % (Auto) 39.8 L Lymph % (Auto) 46.0 H Rutherford % (Auto) 10.5 H Eos % (Auto) 2.8 Baso % (Auto) 0.7 Absolute Neuts (auto) 2.3 Absolute Lymphs (auto) 2.62 Nucleated RBC % 0 Sodium 136 Potassium 4.2 Chloride 106 Carbon Dioxide 28.0 Anion Gap 2 L BUN 25 H Creatinine 0.96 Estim Creat Clear Calc 82.38 Est GFR (MDRD) Af Amer 102 Est GFR (MDRD) Non-Af 84 BUN/Creatinine Ratio 26.0 H Glucose 121 H Calcium 8.7 Magnesium 2.1 Troponin I High Sens 4 TSH 2.39 Radiography Diagnostic Testing: Clinical Impression(s) from Imaging Studies Chest X-Ray 02/14/23 04:06 IMPRESSION: No evidence of active intrathoracic disease. Electronically Signed: Mitzi Sainz MD at 4:43 EDT Reading Location ID and State: [facility] / [place] Tel , Service support , Chest x-ray as interpreted by the emergency medicine physician reveals no acute infiltrate pneumothorax or pleural effusion Discharge Plan Triage Chief Complaint: General Illness ED Provider: Bandar Kasper Dx/Rx/DC Orders Clinical Impression: M?ni?re's disease, Heart palpitations, PVC (premature ventricular contraction) Instructions: ED Meniere's Disease, ED Palpitations Prescriptions: No Action azelastine 205.5 mcg (0.15 %) spray,non-aerosol 1 spray INTRANASAL BID PRN (Reason: allergies) montelukast [Singulair] 10 mg tablet 10 mg PO DAILY PRN (Reason: allergies) meclizine 25 mg tablet 25 mg PO BID Qty: 60 5RF rosuvastatin [Crestor] 5 mg Tablet 5 mg PO QHS omeprazole 20 mg Capsule,Delayed Release(Dr/Ec) 20 mg PO QODAY loratadine 10 mg tablet 10 mg PO DAILY Label Comments: take 1 tablet by mouth once daily Centrum Adults 12 mcg Tablet,Chewable 1 tab PO DAILY Primary Care Provider: Brian Dickinson Referrals: Brian Dickinson DO [Primary Care Provider] - Activity Restrictions/Additional Instructions: Your work-up did not show any signs of cardiac event or neurologic dysfunction or signs of kidney damage or electrolyte derangement. Your symptoms are most likely related to your underlying M?ni?re's disease. Please follow-up with your family doctor for repeat evaluation and return to the ER should you have any further concerns Disposition Disposition: Home, Self Care
[2023-02-14 05:35] VITALS: BP 151/84; PULSE 74; RESP 14; O2SAT 96
== END 2023-02-14 05:43 | disposition home or self-care (01) ==
PROVIDERS: Emergency Provider Emergency Medicine; PCP Preventive Medicine Occupational Medicine; Visit Provider Emergency Medicine
DX: R00.2 Palpitations (principal); I49.3 Ventricular premature depolarization; E78.00 Pure hypercholesterolemia, unspecified; H81.09 Meniere's disease, unspecified ear
CPT/HCPCS: 71046; 80048; 83735; 84443; 84484; 85025; 93005; 99283; A4216

== ENCOUNTER 2023-03-08 15:44 | Emergency (ER) | payer OTHER, SELFPAY ==
[2023-03-08 15:45] VITALS: BP 130/85; PULSE 100; RESP 16; TEMP 36.8; O2SAT 97; BMI 31.0
--- NOTE | 2023-03-08 16:07 | EKG12_ITS ---
Test Reason : PALP Blood Pressure : / mmHG Vent. Rate : 097 BPM Atrial Rate : 097 BPM P-R Int : 146 ms QRS Dur : 084 ms QT Int : 340 ms P-R-T Axes : 265 057 036 degrees QTc Int : 431 ms Unusual P axis, possible ectopic atrial rhythm Abnormal ECG Confirmed by BEAU ELLIS, SARA ([id number]), news video editor LILLY SUAREZ ([id number]) on 03/12/2023 9:05:29 AM Referred By: DIPTI Confirmed By:SARA YANEZ MD
[2023-03-08 16:25] LABS: Absolute Lymphocyte Count 1.77 X10^3/uL (0.83-4.51); Absolute Neutrophil Count 5.3 X10^3/uL (2.0-7.7); Basophil# 0.04 X10^3/uL; Basophil% 0.5 % (0-1); Eosinophil# 0.05 X10^3/uL; Eosinophils% 0.6 % (0-5); Hematocrit 47.3 % (40-54); Hemoglobin 15.8 g/dL (13.0-16.5); Lymphocyte # 1.77 X10^3/ul (0.83-4.51); Lymphocyte % 22.8 % (19-41); Mean Corp Hgb Conc 33.4 g/dL (32-36); Mean Corpuscular Hgb 29.9 pg (27.0-32.0); Mean Corpuscular Volume 89.6 fL (80-94); Mean Platelet Vol. 9.6 fl (6.2-12.0); Monocyte# 0.59 X10^3/uL; Monocyte% 7.6 % (0-10); NRBC Flagged by Analyzer 0 % (0-5); Neutrophil # 5.28 X10^3/uL (2.7-7.7); Neutrophil % 68.2 % (47-70); Platelet Count 186 K/mm3 (150-450); RBC Distribution Width SD 42.7 fl (35.1-43.9); Red Blood Count 5.28 M/mm3 (4.6-6.2); White Blood Count 7.8 K/mm3 (4.4-11.0)
--- NOTE | 2023-03-08 16:38 | RAD_ITS ---
STUDY: X-RAY CHEST REASON FOR EXAM: Male, 62 years old. chest pain TECHNIQUE: Single AP portable view of the chest. COMPARISON: 02/14/2023. FINDINGS: The lungs are clear and expanded. There is no demonstrated pleural abnormality. Normal size heart. Normal mediastinum and jason. Normal visualized pulmonary arteries. Normal visualized aortic arch and descending thoracic aorta. Normal visualized thoracic spine. Normal visualized ribs, clavicles, and shoulders. There is no demonstrated abnormality of the visualized soft tissue structures of the upper abdomen. RAD/Chest 1 View (Portable) IMPRESSION: Normal x-ray examination of the chest. Electronically Signed: Hermelindo Winslow MD at 16:55 EDT ,
[2023-03-08 16:39] LABS: Anion Gap 7 (5-15); BUN 22 mg/dL (7-18); Calcium,Total 9.3 mg/dL (8.5-10.1); Chloride 106 mmol/L (98-107); EST Glomerular Filtration Rate 72 mL/min (>60); Est Glom Filt Rate - Afr Amer 87 mL/min (>60); Estimated Creatinine Clearance 71.89 ml/min; Glucose 142 mg/dL (74-106); Potassium 3.9 mmol/L (3.5-5.1); Sodium Level 140 mmol/L (136-145); Troponin-I HS (w/2H Reflex) 5 pg/mL (3.0-78.0)
--- NOTE | 2023-03-08 17:09 | EX.ED.DYSGE1 ---
HPI <TATIANA Luo - Last Filed: 03/08/23 20:27> History of Present Illness Chief Complaint: Palpitations Narrative Narrative: Patient presenting today due to palpitations. He has a history of PVCs that started in June. He has had a 30-day Holter monitor and does follow with cardiology. Last night he began taking 25 mg Metoprolol for the first time for his palpitations and slept well throughout the night, when normally he gets woken up by his heart palpitations. This afternoon, he began to have palpitations again or more frequent than usual, he noticed that he was slightly tachycardic around 105 bpm, and noticed that his blood pressure was elevated around 160/80. He reports that this time he just, did not feel right and became concerned that he could be having a reaction to the metoprolol. He denies any fever, chills, abdominal pain, nausea, vomiting, chest pain, and shortness of breath. Does have a history of a DVT. [facility] <TATIANA Luo - Last Filed: 03/08/23 20:27> [facility] Medical History Asthma Cardiology follow-up encounter DVT (deep venous thrombosis) Gastric reflux GERD (gastroesophageal reflux disease) High cholesterol High triglycerides History of blood clots History of DVT (deep vein thrombosis) History of echocardiogram History of Holter monitoring History of stress test Hyperlipidemia Insomnia Migraines Non-smoker Obesity Osteoarthritis Osteoporosis Seasonal allergies Wears glasses Home Medications rosuvastatin 5 mg tablet (Crestor) 5 mg PO QHS 08/25/21 [History Last Taken Unknown] montelukast 10 mg tablet (Singulair) 10 mg PO DAILY PRN allergies 09/27/22 [History Last Taken Unknown] azelastine 205.5 mcg (0.15 %) nasal spray 1 spray intranasal BID PRN allergies 12/19/22 [History Last Taken Unknown] meclizine 25 mg tablet 25 mg PO BID #60 tabs 01/29/23 [Rx Last Taken Unknown] loratadine 10 mg tablet 10 mg PO DAILY 02/14/23 [History Last Taken Unknown] multivitamin with minerals-folic acid 12 mcg chewable tablet (Centrum Adults) 1 tab PO DAILY 02/14/23 [History Last Taken Unknown] omeprazole 20 mg capsule,delayed release 20 mg PO QODAY 02/14/23 [History Last Taken Unknown] metoprolol succinate 50 mg tablet,extended release 24 hr 50 mg PO DAILY #30 tabs 03/12/23 [Rx Last Taken Unknown] Allergy/AdvReac Type Severity Reaction Status Date / Time No Known Allergies Allergy Verified 03/08/23 15:47 Family History Sister Diabetes Cancer Mother Diabetes Arthritis Heart disease Father Hypertension Arthritis Colon cancer High cholesterol Brother Kidney disease Surgical History H/O arthroscopy of shoulder History of cholecystectomy History of foot surgery Hx of arthroscopy of shoulder right finger cyst excision Social History household members: spouse Smoking Status: Never smoker second hand exposure: No alcohol intake: current substance use type: does not use what type of physical activity do you participate in: walking and other frequency: 3-4 times per week ne/church: [employer] seatbelt use: always ROS <TATIANA Luo - Last Filed: 03/08/23 20:27> ROS ED Constitutional Constitutional ED: Denies chills or fever(s) Cardiovascular Cardiovascular: Reports palpitations; Denies chest pain Respiratory/Chest Respiratory/Chest: Denies cough, dyspnea or dyspnea on exertion Gastrointestinal Gastrointestinal: Denies abdominal pain, nausea or vomiting Musculoskeletal Musculoskeletal: Denies arthralgias or myalgias Integumentary Denies rash Neurologic Neurologic: Denies confusion, dizziness or weakness EXAM <TATIANA Luo - Last Filed: 03/08/23 20:27> Physical Exam Const Vital Signs: 03/08/23 15:45 03/08/23 16:32 03/08/23 17:44 Temperature 98.2 F Temperature Source Temporal Pulse Rate 100 Respiratory Rate 16 18 Respiratory Effort Normal Non-Labored Blood Pressure 130/85 H Blood Pressure Mean 100 Pulse Ox 97 Oxygen Delivery Method Room Air 03/08/23 19:00 Temperature Temperature Source Pulse Rate Respiratory Rate 18 Respiratory Effort Blood Pressure Blood Pressure Mean Pulse Ox Oxygen Delivery Method Positive well nourished, well developed and no apparent distress General Appearance ED: well developed HEENT Reports normocephalic and head/scalp atraumatic Mouth ED: Yes moist mucous membranes normal Eyes PERRL and EOMs intact bilaterally Neck full ROM and supple Chest Wall inspection of chest normal Resp normal respiratory effort and clear to auscultation bilaterally Cardio regular rate and regular rhythm GI soft to palpation, non-tender, non-distended and no masses Back/Spine normal ROM and normal to inspection Extremity normal to inspection and full ROM Neuro oriented x3, CN's II-XII intact bilaterally, moves all extremities, no focal motor deficits and no sensory deficits noted Sensorium / Orientation: awake and alert Psych mental status grossly normal and thought process normal Skin no rashes or lesions noted and no wounds <Dr. Carolin Puentes DO - Last Filed: 03/12/23 15:29> Physical Exam Const Vital Signs: 03/08/23 15:45 03/08/23 16:32 03/08/23 17:44 Temperature 98.2 F Temperature Source Temporal Pulse Rate 100 Respiratory Rate 16 18 Respiratory Effort Normal Non-Labored Blood Pressure 130/85 H Blood Pressure Mean 100 Pulse Ox 97 Oxygen Delivery Method Room Air 03/08/23 19:00 Temperature Temperature Source Pulse Rate Respiratory Rate 18 Respiratory Effort Blood Pressure Blood Pressure Mean Pulse Ox Oxygen Delivery Method [facility] <TATIANA Luo - Last Filed: 03/08/23 20:27> [facility] Narrative Medical decision making narrative: Patient presenting today due to palpitations. He has had them for the past several months and has had them worked up by both his PCP and er rn. He reports that today he just felt off but is not giving me much of an explanation of what that means. He reported that he was slightly tachycardic earlier today but was doing yard work not too long before that. ROS is unremarkable. He just started taking 25 mg of metoprolol last night and is to take it once a day. Labs will be obtained to rule out leukocytosis, anemia, ACS, electrolyte abnormality, D-dimer will be obtained due to history of a DVT to rule out PE as he is 100 bpm here. Labs overall are unremarkable. He just had a TSH not too long ago, I do not feel that this needs to be repeated. Chest x-ray will be obtained to rule out pneumothorax, pleural effusion, and other cardiopulmonary abnormality and is negative. He has been encouraged to take his metoprolol twice a day to see if this helps his palpitations. He is to follow-up with his er rn. He has been given return instructions and will be discharged home in stable condition. He is comfortable with plan. Lab Data Attestation: I reviewed the patient's lab results. Lab results narrative: D-dimer below threshold, BUN 22, troponin and delta troponin WNL Labs: Laboratory Results - last 24 hr 03/08/23 03/08/23 03/08/23 16:15 16:15 17:08 WBC 7.8 RBC 5.28 Hgb 15.8 Hct 47.3 MCV 89.6 MCH 29.9 MCHC 33.4 RDW Std Deviation 42.7 RDW Coeff of Rei 13.0 Plt Count 186 MPV 9.6 Immature Gran % (Auto) 0.300 Neut % (Auto) 68.2 Lymph % (Auto) 22.8 [place] % (Auto) 7.6 Eos % (Auto) 0.6 Baso % (Auto) 0.5 Absolute Neuts (auto) 5.3 Absolute Lymphs (auto) 1.77 Nucleated RBC % 0 D-Dimer Quant (PE/DVT) < 0.27 L Sodium 140 Potassium 3.9 Chloride 106 Carbon Dioxide 27.0 Anion Gap 7 BUN 22 H Creatinine 1.10 Estim Creat Clear Calc 71.89 Est GFR (MDRD) Af Amer 87 Est GFR (MDRD) Non-Af 72 BUN/Creatinine Ratio 20.0 Glucose 142 H Calcium 9.3 Troponin I High Sens 5 03/08/23 18:25 WBC RBC Hgb Hct MCV MCH MCHC RDW Std Deviation RDW Coeff of Rei Plt Count MPV Immature Gran % (Auto) Neut % (Auto) Lymph % (Auto) [place] % (Auto) Eos % (Auto) Baso % (Auto) Absolute Neuts (auto) Absolute Lymphs (auto) Nucleated RBC % D-Dimer Quant (PE/DVT) Sodium Potassium Chloride Carbon Dioxide Anion Gap BUN Creatinine Estim Creat Clear Calc Est GFR (MDRD) Af Amer Est GFR (MDRD) Non-Af BUN/Creatinine Ratio Glucose Calcium Troponin I High Sens 5 Radiography X-Ray: Read by ED Physician and Read by Radiologist Diagnostic Testing: Clinical Impression(s) from Imaging Studies Chest X-Ray 03/08/23 16:38 IMPRESSION: Normal x-ray examination of the chest. Electronically Signed: Hermelindo Winslow MD at 16:55 EDT , EKG Initial EKG: Comments: 97 bpm, no ST elevation, unusual P axis, possible ectopic atrial rhythm <Dr. Carolin Puentes, DO - Last Filed: 03/12/23 15:29> [facility] Narrative Medical decision making narrative: Patient presenting today due to palpitations. He has had them for the past several months and has had them worked up by both his PCP and er rn. He reports that today he just felt off but is not giving me much of an explanation of what that means. He reported that he was slightly tachycardic earlier today but was doing yard work not too long before that. ROS is unremarkable. He just started taking 25 mg of metoprolol last night and is to take it once a day. Labs will be obtained to rule out leukocytosis, anemia, ACS, electrolyte abnormality, D-dimer will be obtained due to history of a DVT to rule out PE as he is 100 bpm here. Labs overall are unremarkable. He just had a TSH not too long ago, I do not feel that this needs to be repeated. Chest x-ray will be obtained to rule out pneumothorax, pleural effusion, and other cardiopulmonary abnormality and is negative. He has been encouraged to take his metoprolol twice a day to see if this helps his palpitations. He is to follow-up with his er rn. He has been given return instructions and will be discharged home in stable condition. He is comfortable with plan. I have personally performed a face to face assessment of the patient and have reviewed the MILENA Note. I performed a substantive portion of the visit including all aspects of the following. My hsu findings include: History is patient is a 62-year-old male with history of small hiatal hernia and ongoing palpitations (currently on Toprol 25 mg) presenting with recurrent palpitations. Patient notes he took his Toprol last night and actually was able to sleep well. His symptoms returned today. They seem to be worse whenever he either leans forward or eats. Patient denies any recent swelling of his legs. He had a recent TSH which was within normal limits. This does not explain his symptoms. I do not think a repeat TSH is indicated. He has no significant electrolyte abnormalities, anemia and his D-dimer is negative. High-sensitivity troponin is normal x2 with no significant change on the delta. Discussed with patient that it is possible he might require higher dose of Toprol for full effect. Patient's heart rate is in the 90s on my evaluation. Patient is asymptomatic in the emergency room. EKG shows no ST elevations with an unusual P axis with possible ectopic atrial rhythm. Patient is encouraged to follow-up with cardiology is given referral for surgery in case somehow his hiatal hernia is exacerbating the sensation of palpitations especially given the correlation with food and position. At this time I do think he is stable to go home especially given the chronicity of the sensation of palpations. Also discussed that he might need a higher dose of Toprol or take it twice a day as previously been suggested by his er rn. Given that patient has a high normal heart rate on Toprol he likely could tolerate a higher dose. Patient and verbalized agreement and understanding with this plan. Other additions or changes: [None] Lab Data Labs: Laboratory Results - last 24 hr 03/08/23 03/08/23 03/08/23 16:15 16:15 17:08 WBC 7.8 RBC 5.28 Hgb 15.8 Hct 47.3 MCV 89.6 MCH 29.9 MCHC 33.4 RDW Std Deviation 42.7 RDW Coeff of Rei 13.0 Plt Count 186 MPV 9.6 Immature Gran % (Auto) 0.300 Neut % (Auto) 68.2 Lymph % (Auto) 22.8 [place] % (Auto) 7.6 Eos % (Auto) 0.6 Baso % (Auto) 0.5 Absolute Neuts (auto) 5.3 Absolute Lymphs (auto) 1.77 Nucleated RBC % 0 D-Dimer Quant (PE/DVT) < 0.27 L Sodium 140 Potassium 3.9 Chloride 106 Carbon Dioxide 27.0 Anion Gap 7 BUN 22 H Creatinine 1.10 Estim Creat Clear Calc 71.89 Est GFR (MDRD) Af Amer 87 Est GFR (MDRD) Non-Af 72 BUN/Creatinine Ratio 20.0 Glucose 142 H Calcium 9.3 Troponin I High Sens 5 03/08/23 18:25 WBC RBC Hgb Hct MCV MCH MCHC RDW Std Deviation RDW Coeff of Rei Plt Count MPV Immature Gran % (Auto) Neut % (Auto) Lymph % (Auto) [place] % (Auto) Eos % (Auto) Baso % (Auto) Absolute Neuts (auto) Absolute Lymphs (auto) Nucleated RBC % D-Dimer Quant (PE/DVT) Sodium Potassium Chloride Carbon Dioxide Anion Gap BUN Creatinine Estim Creat Clear Calc Est GFR (MDRD) Af Amer Est GFR (MDRD) Non-Af BUN/Creatinine Ratio Glucose Calcium Troponin I High Sens 5 Radiography Diagnostic Testing: Clinical Impression(s) from Imaging Studies Chest X-Ray 03/08/23 16:38 IMPRESSION: Normal x-ray examination of the chest. Electronically Signed: Hermelindo Winslow MD at 16:55 EDT , Discharge Plan Triage Chief Complaint: Palpitations ED Midlevel Provider: Melyssa Bradshaw ED Provider: Carolin Puentes Dx/Rx/DC Orders Clinical Impression: Palpitations Instructions: ED Palpitations Prescriptions: No Action azelastine 205.5 mcg (0.15 %) spray,non-aerosol 1 spray INTRANASAL BID PRN (Reason: allergies) montelukast [Singulair] 10 mg tablet 10 mg PO DAILY PRN (Reason: allergies) meclizine 25 mg tablet 25 mg PO BID Qty: 60 5RF rosuvastatin [Crestor] 5 mg Tablet 5 mg PO QHS omeprazole 20 mg Capsule,Delayed Release(Dr/Ec) 20 mg PO QODAY loratadine 10 mg tablet 10 mg PO DAILY Label Comments: take 1 tablet by mouth once daily Centrum Adults 12 mcg Tablet,Chewable 1 tab PO DAILY metoprolol succinate 50 mg tablet extended release 24 hr 50 mg PO DAILY Qty: 30 11RF Primary Care Provider: Brian Dickinson Referrals: Soy Cristobal MD [Med Staff - Active Staff] - 1 Week Brian Dickinson DO [Primary Care Provider] - Activity Restrictions/Additional Instructions: Follow-up with the general surgeon we have referred you to as well as your er rn. Please return for any worsening of symptoms. Disposition Disposition: Home, Self Care Discharge Date/Time: 03/08/23 19:21
[2023-03-08 17:44] VITALS: RESP 18
[2023-03-08 18:19] LABS: Reflex Troponin-HS? (from REC) Y
[2023-03-08 18:20] LABS: D-Dimer Quantitative (DVT/PE) < 0.27 FEU/ug/m (0.27-0.49)
[2023-03-08 18:46] LABS: Troponin-I HS 5 pg/mL (3.0-78.0)
[2023-03-08 19:00] VITALS: RESP 18
== END 2023-03-08 19:21 | disposition home or self-care (01) ==
PROVIDERS: Physician Assistant; Emergency Provider Emergency Medicine; PCP Preventive Medicine Occupational Medicine; Visit Provider Emergency Medicine
DX: R00.2 Palpitations (principal); E78.00 Pure hypercholesterolemia, unspecified
CPT/HCPCS: 71045; 80048; 84484; 85025; 85379; 93005; 99284; A4216

== ENCOUNTER 2023-03-14 10:04 | Emergency (ER) | payer OTHER, SELFPAY ==
[2023-03-14 10:05] VITALS: BP 144/77; PULSE 91; RESP 20; TEMP 36.7; O2SAT 99; BMI 31.1
--- NOTE | 2023-03-14 10:36 | EDS_ITS ---
HPI History of Present Illness Chief Complaint: Chest Pain Informant: patient Onset/Context/Timing Onset: Today Activity at onset: sudden Timing: Intermittent and Lasts (Approximately 5 seconds) Quality: Positive for - (Cramping) Location: Left Chest Worsened By: Nothing Relieved By: Nothing Associated Symptoms: Positive for Dyspnea, Lightheadedness, Acid Reflux and Palpitations; Negative for Nausea, Vomiting, Diaphoresis, Cough or Fever Narrative Narrative: Patient presents with chest pain that began approximate 25 minutes prior to arrival. Patient states it began rather suddenly. Patient states it is intermittent. Patient states that last approximately 5 seconds. Patient states it is over the left upper chest. Patient describes it as a cramping. Patient states nothing makes it better nothing makes it worse. Patient states he is currently being evaluated by cardiology for palpitations. Patient states that he was recently started on metoprolol because of PVCs. Patient states that since he started taking the metoprolol, he no longer feels the PVCs. Patient states he did develop some shortness of breath today. Patient also admits to some lightheadedness. CVD Risk Factors: Positive for Hypercholesterolemia and Family History 1' </=55; Negative for Hypertension, Diabetes or Smoking PE Risk Factors: Positive for Prior DVT or PE; Negative for Recent Travel/Bautista varun, Recent Immobilization or Cancer [facility] Medical History Asthma Cardiology follow-up encounter DVT (deep venous thrombosis) Gastric reflux GERD (gastroesophageal reflux disease) High cholesterol High triglycerides History of blood clots History of DVT (deep vein thrombosis) History of echocardiogram History of Holter monitoring History of stress test Hyperlipidemia Insomnia Migraines Non-smoker Obesity Osteoarthritis Osteoporosis Seasonal allergies Wears glasses Home Medications rosuvastatin 5 mg tablet (Crestor) 5 mg PO QHS 08/25/21 [History Last Taken Unknown] montelukast 10 mg tablet (Singulair) 10 mg PO DAILY PRN allergies 09/27/22 [History Last Taken Unknown] azelastine 205.5 mcg (0.15 %) nasal spray 1 spray intranasal BID PRN allergies 12/19/22 [History Last Taken Unknown] meclizine 25 mg tablet 25 mg PO BID #60 tabs 01/29/23 [Rx Last Taken Unknown] loratadine 10 mg tablet 10 mg PO DAILY 02/14/23 [History Last Taken Unknown] multivitamin with minerals-folic acid 12 mcg chewable tablet (Centrum Adults) 1 tab PO DAILY 02/14/23 [History Last Taken Unknown] omeprazole 20 mg capsule,delayed release 20 mg PO QODAY 02/14/23 [History Last Taken Unknown] metoprolol succinate 50 mg tablet,extended release 24 hr 50 mg PO DAILY #30 tabs 03/12/23 [Rx Last Taken Unknown] famotidine 20 mg tablet 20 mg PO DAILY 03/14/23 [History Last Taken Unknown] Allergy/AdvReac Type Severity Reaction Status Date / Time No Known Allergies Allergy Verified 03/14/23 10:05 Family History Sister Diabetes Cancer Mother Diabetes Arthritis Heart disease Father Hypertension Arthritis Colon cancer High cholesterol Brother Kidney disease Surgical History H/O arthroscopy of shoulder History of cholecystectomy History of foot surgery Hx of arthroscopy of shoulder right finger cyst excision Social History household members: spouse Smoking Status: Never smoker second hand exposure: No alcohol intake: current substance use type: does not use what type of physical activity do you participate in: walking and other frequency: 3-4 times per week ne/cheondoism: Gnosticism seatbelt use: always ROS ROS ED Constitutional Constitutional ED: Denies chills or fever(s) Eyes Eyes: Denies blurry vision or change in vision ENT ENT ED: Denies rhinorrhea or sore throat Cardiovascular Cardiovascular: Reports chest pain and palpitations Respiratory/Chest Respiratory/Chest: Reports dyspnea; Denies cough Gastrointestinal Gastrointestinal: Denies abdominal pain, nausea or vomiting Genitourinary Genitourinary ED: Denies dysuria or hematuria Musculoskeletal Musculoskeletal: Reports back pain; Denies neck pain Integumentary Denies abscess or rash Neurologic Neurologic: Denies headache(s) or weakness Allergic/Immunologic Allergic/Immunologic ED: Denies mouth swelling or urticaria EXAM Physical Exam Const Vital Signs: 03/14/23 10:05 03/14/23 10:08 03/14/23 12:00 Temperature 98.0 F Temperature Source Oral Pulse Rate 91 72 Respiratory Rate 20 H 16 Respiratory Effort Normal Non-Labored Blood Pressure 144/77 H 122/68 H Blood Pressure Mean 99 86 Pulse Ox 99 98 Oxygen Delivery Method Room Air Room Air Positive well nourished and well developed General Appearance ED: well developed and NAD HEENT normocephalic and atraumatic Eyes PERRL and EOMs intact bilaterally Neck supple and no JVD Chest Wall palpation of chest normal Resp normal respiratory effort and clear to auscultation bilaterally Effort and Inspection: Negative for respiratory distress Cardio regular rate, regular rhythm and no murmurs GI normal to inspection, nondistended, normoactive bowel sounds, soft to palpation, non-tender and non-distended Extremity normal to inspection General Extremety ED: Negative for edema or tenderness General Extremity: Negative for edema Neuro oriented x3, CN's II-XII intact bilaterally and no sensory deficits noted Sensorium / Orientation: awake and alert Motor Exam: strength 5/5 throughout Psych mental status grossly normal Heart Score History: Slightly/Non-Suspicious ECG: Normal Age: >45 - <65 years Risk Factors: 1 or 2 Risk Factors Troponin: </= Normal Limit Score: 2 MDM MDM MDM Narrative Medical decision making narrative: Differential diagnosis includes cardiac dysrhythmia, cardiac ischemia, electrolyte abnormality, pneumonia, pneumothorax, congestive heart failure, and pulmonary embolism. EKG will be obtained to assess for cardiac dysrhythmia and cardiac ischemia. Chest x-ray will be obtained to assess for pneumonia, pneumothorax, and congestive heart failure. CBC will be obtained to assess for anemia and leukocytosis. Basic metabolic profile will be obtained to assess for electrolyte abnormality and renal function. High-sensitivity troponin will be obtained to assess for cardiac ischemia. D-dimer will be obtained to assess for pulmonary embolism. 2-hour repeat high-sensitivity troponin will be obtained to assess for ongoing cardiac ischemia. Lab Data Attestation: I reviewed the patient's lab results. Lab results narrative: Was reviewed and was within normal limits. D-dimer was reviewed and was less than 0.27. Basic metabolic profile was reviewed and was essentially within normal limits. High-sensitivity troponin was reviewed and was normal at 4. 2- hour repeat high-sensitivity troponin was reviewed and was normal at 3. Labs: Laboratory Results - last 24 hr 03/14/23 03/14/23 03/14/23 10:16 10:16 10:16 WBC 6.5 RBC 5.52 Hgb 16.4 Hct 49.8 MCV 90.2 MCH 29.7 MCHC 32.9 RDW Std Deviation 42.8 RDW Coeff of Rei 12.9 Plt Count 199 MPV 10.0 Immature Gran % (Auto) 0.200 Neut % (Auto) 53.3 Lymph % (Auto) 36.0 [place] % (Auto) 8.2 Eos % (Auto) 1.7 Baso % (Auto) 0.6 Absolute Neuts (auto) 3.5 Absolute Lymphs (auto) 2.33 Nucleated RBC % 0 D-Dimer Quant (PE/DVT) < 0.27 L Sodium 141 Potassium 3.9 Chloride 106 Carbon Dioxide 29.0 Anion Gap 6 BUN 29 H Creatinine 1.12 Estim Creat Clear Calc 70.61 Est GFR (MDRD) Af Amer 85 Est GFR (MDRD) Non-Af 70 BUN/Creatinine Ratio 25.9 H Glucose 121 H Calcium 9.4 Magnesium 2.5 Troponin I High Sens 4 03/14/23 12:30 WBC RBC Hgb Hct MCV MCH MCHC RDW Std Deviation RDW Coeff of Rei Plt Count MPV Immature Gran % (Auto) Neut % (Auto) Lymph % (Auto) [place] % (Auto) Eos % (Auto) Baso % (Auto) Absolute Neuts (auto) Absolute Lymphs (auto) Nucleated RBC % D-Dimer Quant (PE/DVT) Sodium Potassium Chloride Carbon Dioxide Anion Gap BUN Creatinine Estim Creat Clear Calc Est GFR (MDRD) Af Amer Est GFR (MDRD) Non-Af BUN/Creatinine Ratio Glucose Calcium Magnesium Troponin I High Sens 3 Radiography Chest X-Ray - ED: 1 View, Read by ED Physician, Read by Radiologist and No Acute Disease Diagnostic Testing: Clinical Impression(s) from Imaging Studies Chest X-Ray 03/14/23 10:55 IMPRESSION: No acute cardiopulmonary process identified. Electronically Signed: Katie Ruiz MD at 11:18 EDT , Portable 1 view chest x-ray was obtained. On my independent interpretation, lung jack are clear. There is normal cardiac silhouette. Bony thorax is normal. There is no acute process noted. Radiologist also interpreted the x- ray and agrees. EKG Initial EKG: Attestation: I personally reviewed and interpreted this EKG as follows: Interpretation: Sinus Rhythm (86) and No Acute Injury Pattern Comments: EKG was obtained. On my independent interpretation, it showed a normal sinus rhythm with a rate of 86. MN interval, QRS interval, and QTc intervals were all normal. [place] was normal. There are no acute ST or T wave changes. Prior EKG tracings: available for review Prior: Unchanged (03/08/2023) Treatment and Re-Evaluation :: Patient was given aspirin. Patient was advised of his findings. Patient has a HEART score of 2. Patient was advised that this is low risk for acute cardiac event. Patient was instructed to follow-up with his primary care physician and director of content marketing in 5 to 7 days. Patient was instructed return if worse in any way. Patient understood and was agreeable with the plan. All questions were answered. Discharge Plan Triage Chief Complaint: Chest Pain ED Provider: Ger Jason Dx/Rx/DC Orders Clinical Impression: Palpitations, Chest pain Instructions: ED Chest Pain, Uncertain Cause, ED Palpitations Prescriptions: No Action azelastine 205.5 mcg (0.15 %) spray,non-aerosol 1 spray INTRANASAL BID PRN (Reason: allergies) montelukast [Singulair] 10 mg tablet 10 mg PO DAILY PRN (Reason: allergies) meclizine 25 mg tablet 25 mg PO BID Qty: 60 5RF rosuvastatin [Crestor] 5 mg Tablet 5 mg PO QHS omeprazole 20 mg Capsule,Delayed Release(Dr/Ec) 20 mg PO QODAY loratadine 10 mg tablet 10 mg PO DAILY Label Comments: take 1 tablet by mouth once daily Centrum Adults 12 mcg Tablet,Chewable 1 tab PO DAILY famotidine 20 mg Tablet 20 mg PO DAILY metoprolol succinate 50 mg tablet extended release 24 hr 50 mg PO DAILY Qty: 30 11RF Primary Care Provider: Brian Dickinson Referrals: Gene Chao MD [Med Staff - Active Staff] - 5-7 Days Brian Dickinson DO [Primary Care Provider] - 5-7 Days Disposition Disposition: Home, Self Care
--- NOTE | 2023-03-14 10:44 | EKG12_ITS ---
Test Reason : Blood Pressure : / mmHG Vent. Rate : 086 BPM Atrial Rate : 086 BPM P-R Int : 134 ms QRS Dur : 086 ms QT Int : 360 ms P-R-T Axes : 013 056 045 degrees QTc Int : 430 ms Normal sinus rhythm Normal ECG Confirmed by BEAU ELLIS, SARA ([id number]), newspaper editor LILLY SUAREZ ([id number]) on 03/15/2023 1:25:04 PM Referred By: NATHAN Confirmed By:SARA YANEZ MD
--- NOTE | 2023-03-14 10:55 | RAD_ITS ---
HISTORY: chest pain. TECHNIQUE: XR Chest 1 View. COMPARISON: 03/08/2023. FINDINGS: CARDIOMEDIASTINAL BORDERS: Cardiac silhouette within normal limits in size. Mediastinal contour unremarkable. LUNGS: Radiographically clear. PLEURA: No pleural effusion or pneumothorax seen. OSSEOUS STRUCTURES: Unremarkable. RAD/Chest 1 View (Portable) IMPRESSION: No acute cardiopulmonary process identified. Electronically Signed: Katie Ruiz MD at 11:18 EDT ,
[2023-03-14] MEDS: Aspirin 81 MG TAB.CHEW 324 MG PO (10:57)
[2023-03-14 11:02] LABS: Absolute Lymphocyte Count 2.33 X10^3/uL (0.83-4.51); Absolute Neutrophil Count 3.5 X10^3/uL (2.0-7.7); Basophil# 0.04 X10^3/uL; Basophil% 0.6 % (0-1); Eosinophil# 0.11 X10^3/uL; Eosinophils% 1.7 % (0-5); Hematocrit 49.8 % (40-54); Hemoglobin 16.4 g/dL (13.0-16.5); Lymphocyte # 2.33 X10^3/ul (0.83-4.51); Mean Corp Hgb Conc 32.9 g/dL (32-36); Mean Corpuscular Hgb 29.7 pg (27.0-32.0); Mean Corpuscular Volume 90.2 fL (80-94); Monocyte# 0.53 X10^3/uL; Monocyte% 8.2 % (0-10); NRBC Flagged by Analyzer 0 % (0-5); Neutrophil # 3.46 X10^3/uL (2.7-7.7); Neutrophil % 53.3 % (47-70); Platelet Count 199 K/mm3 (150-450); RBC Distribution Width CV 12.9 % (11.6-14.6); RBC Distribution Width SD 42.8 fl (35.1-43.9); Red Blood Count 5.52 M/mm3 (4.6-6.2); White Blood Count 6.5 K/mm3 (4.4-11.0)
[2023-03-14 11:21] LABS: Anion Gap 6 (5-15); BUN 29 mg/dL (7-18); BUN/Creat Ratio 25.9 RATIO (10-20); Calcium,Total 9.4 mg/dL (8.5-10.1); Chloride 106 mmol/L (98-107); Creatinine, Serum 1.12 mg/dL (0.70-1.30); EST Glomerular Filtration Rate 70 mL/min (>60); Est Glom Filt Rate - Afr Amer 85 mL/min (>60); Estimated Creatinine Clearance 70.61 ml/min; Glucose 121 mg/dL (74-106); Magnesium 2.5 mg/dL (1.6-2.6); Potassium 3.9 mmol/L (3.5-5.1); Sodium Level 141 mmol/L (136-145); Troponin-I HS (w/2H Reflex) 4 pg/mL (3.0-78.0)
[2023-03-14 11:28] LABS: D-Dimer Quantitative (DVT/PE) < 0.27 FEU/ug/m (0.27-0.49)
[2023-03-14 12:00] VITALS: BP 122/68; PULSE 72; RESP 16; O2SAT 98
[2023-03-14 12:56] LABS: Reflex Troponin-HS? (from REC) Y
[2023-03-14 13:24] LABS: Troponin-I HS 3 pg/mL (3.0-78.0)
[2023-03-14 14:05] VITALS: BP 104/73
== END 2023-03-14 14:05 | disposition home or self-care (01) ==
PROVIDERS: Emergency Provider Emergency Medicine; PCP Preventive Medicine Occupational Medicine; Visit Provider Emergency Medicine
DX: R07.9 Chest pain, unspecified (principal); R00.2 Palpitations; E78.00 Pure hypercholesterolemia, unspecified; I49.3 Ventricular premature depolarization; J45.909 Unspecified asthma, uncomplicated; Z79.899 Other long term (current) drug therapy
CPT/HCPCS: 71045; 80048; 83735; 84484; 85025; 85379; 93005; 99285; A4216

== ENCOUNTER → 2023-03-27 | Outpatient (CLI) | payer OTHER, SELFPAY | END | disposition home or self-care (01) | PROVIDERS: PCP Preventive Medicine Occupational Medicine; Referring Provider Nurse Practitioner Gerontology; Visit Provider Nurse Practitioner Gerontology | DX: R00.2 Palpitations (principal) | CPT/HCPCS: 93225; 93226 ==

== ENCOUNTER 2023-03-28 14:16 | Emergency (ER) | payer OTHER, SELFPAY ==
[2023-03-28 14:17] VITALS: BP 134/69; PULSE 42; RESP 18; TEMP 35.7; O2SAT 100; BMI 31.1
[2023-03-28 14:29] VITALS: BP 154/92; PULSE 85; RESP 14; O2SAT 100
--- NOTE | 2023-03-28 14:33 | EKG12_ITS ---
Test Reason : CP Blood Pressure : / mmHG Vent. Rate : 079 BPM Atrial Rate : 079 BPM P-R Int : 128 ms QRS Dur : 084 ms QT Int : 374 ms P-R-T Axes : 000 062 042 degrees QTc Int : 428 ms Normal sinus rhythm Normal ECG Confirmed by BEAU ELLIS, SARA ([id number]), staff editor LILLY SUAREZ ([id number]) on 04/01/2023 1:29:48 PM Referred By: Confirmed By:SARA YANEZ MD
--- NOTE | 2023-03-28 14:36 | EX.ED.DYSGE1 ---
HPI <JOHNATHAN Gaffney - Last Filed: 03/28/23 16:42> History of Present Illness Chief Complaint: Chest Pain Narrative Narrative: Patient is a 62-year-old male with history of M?ni?re's disease, frequent PVCs who is currently getting worked up and has a monitor on at this time, hiatal hernia who presents to the emergency department with onset of epigastric pain after eating this morning. Patient states he also feels like a lump in his sternum and when he drinks water it feels like it is not going down. Patient states he is able to stretch and get it down. Patient denies any fever or chills. Patient denies any diaphoresis, significant chest pain that raise the left arm or jaw. PFS <JOHNATHAN Gaffney - Last Filed: 03/28/23 16:42> COUNT INCLUDES THE [facility] Medical History (Updated 03/28/23 @ 16:42 by JOHNATHAN Gaffney) Asthma Cardiology follow-up encounter DVT (deep venous thrombosis) Gastric reflux GERD (gastroesophageal reflux disease) Hiatal hernia High cholesterol High triglycerides History of blood clots History of DVT (deep vein thrombosis) History of echocardiogram History of Holter monitoring History of stress test Hyperlipidemia Insomnia Migraines Non-smoker Obesity Osteoarthritis Osteoporosis Seasonal allergies Wears glasses Home Medications rosuvastatin 5 mg tablet (Crestor) 5 mg PO QHS 08/25/21 [History Last Taken Unknown] montelukast 10 mg tablet (Singulair) 10 mg PO DAILY PRN allergies 09/27/22 [History Last Taken Unknown] azelastine 205.5 mcg (0.15 %) nasal spray 1 spray intranasal BID PRN allergies 12/19/22 [History Last Taken Unknown] meclizine 25 mg tablet 25 mg PO BID #60 tabs 01/29/23 [Rx Last Taken Unknown] loratadine 10 mg tablet 10 mg PO DAILY 02/14/23 [History Last Taken Unknown] multivitamin with minerals-folic acid 12 mcg chewable tablet (Centrum Adults) 1 tab PO DAILY 02/14/23 [History Last Taken Unknown] metoprolol succinate 50 mg tablet,extended release 24 hr 50 mg PO DAILY #30 tabs 03/12/23 [Rx Last Taken Unknown] famotidine 20 mg tablet 20 mg PO DAILY 03/14/23 [History Last Taken Unknown] Allergy/AdvReac Type Severity Reaction Status Date / Time No Known Allergies Allergy Verified 03/25/23 09:58 Family History Sister Diabetes Cancer Mother Diabetes Arthritis Heart disease Father Hypertension Arthritis Colon cancer High cholesterol Brother Kidney disease Surgical History H/O arthroscopy of shoulder History of cholecystectomy History of foot surgery Hx of arthroscopy of shoulder right finger cyst excision Social History household members: spouse Smoking Status: Never smoker second hand exposure: No alcohol intake: current substance use type: does not use what type of physical activity do you participate in: walking and other frequency: 3-4 times per week ne/moravian: Church seatbelt use: always ROS <JOHNATHAN Gaffney - Last Filed: 03/28/23 16:42> ROS ED ROS Narrative Constitutional: Negative for fever, chills, weight loss, weakness Eyes: Negative for vision loss, vision change, double vision ENT: Negative for any sore throat, ear pain, congestion Cardiovascular: Negative for any chest pain, tightness, palpitations. Positive epigastric pain, feeling of PVCs Respiratory: Negative for any cough, sputum production, hemoptysis, dyspnea, dyspnea on exertion, orthopnea Gastrointestinal: Negative for any abdominal pain, nausea, vomiting, diarrhea, constipation, blood in stool, blood in vomit : Negative for any urinary frequency, dysuria, retention, blood in urine Muscle skeletal: Negative for any muscle joint pain, stiffness, myalgias, arthralgias, neck pain, back pain Neurological: Negative for any headache, syncope, numbness or tingling, dizziness Skin: Negative for any rashes, lumps, itching, abrasions, lacerations Psychiatric: Negative for any depression, anxiety, stress, suicidal ideation, homicidal ideation Hematologic: Negative for any easy bruising, excessive bruising, easy bleeding Allergies: Negative for any eczema, hives, rash EXAM <JOHNATHAN Gaffney - Last Filed: 03/28/23 16:42> Physical Exam Narrative Exam Narrative: Vital signs reviewed. Patient's vital signs are stable. I do see multiple PVCs on the monitor. Patient states when he rests and take deep breaths, I do dissipate. HEET: Head normocephalic atraumatic, TMs clear bilaterally. Posterior pharynx is clear, moist mucous membranes. Nares clear bilaterally. Neck: Supple with no lymphadenopathy or tenderness. No signs of meningismus, negative jolt sign. Cardiac: Regular rate and rhythm no murmurs gallops or rubs, equal peripheral pulses bilaterally. Respiratory: Lungs clear to auscultation bilaterally. No chest tenderness. Abdomen: Soft, nontender, nondistended. No abdominal bruit or pulsatile masses. No hepatosplenomegaly Extremities: No peripheral edema, no signs of gross trauma or deformity. Active full range of motion of all extremities. Neuro: Cranial nerves II through XII intact, no focal neurological deficits. Skin: Clean dry and intact with no rash, purpura, petechiae, vesicles or pustules. Backs/flank: No CVA tenderness, no midline spinal tenderness, no deformity. Psych: Normal mood and affect. No SI, HI or acute psychosis. Const Vital Signs: 03/28/23 14:17 03/28/23 14:29 03/28/23 14:30 Temperature 96.2 F L Temperature Source Temporal Pulse Rate 42 L 85 Respiratory Rate 18 14 Respiratory Effort Short of Breath Blood Pressure 134/69 H 154/92 H Blood Pressure Mean 90 112 Pulse Ox 100 100 Oxygen Delivery Method Room Air Room Air 03/28/23 15:15 03/28/23 16:00 Temperature Temperature Source Pulse Rate 83 76 Respiratory Rate 10 L 14 Respiratory Effort Blood Pressure 118/63 133/78 H Blood Pressure Mean 81 96 Pulse Ox 98 97 Oxygen Delivery Method Room Air Room Air Positive well nourished and well developed General Appearance ED: well developed <Dr. Hu Nunez, DO - Last Filed: 03/28/23 16:41> Physical Exam Const Vital Signs: 03/28/23 14:17 03/28/23 14:29 03/28/23 14:30 Temperature 96.2 F L Temperature Source Temporal Pulse Rate 42 L 85 Respiratory Rate 18 14 Respiratory Effort Short of Breath Blood Pressure 134/69 H 154/92 H Blood Pressure Mean 90 112 Pulse Ox 100 100 Oxygen Delivery Method Room Air Room Air 03/28/23 15:15 03/28/23 16:00 Temperature Temperature Source Pulse Rate 83 76 Respiratory Rate 10 L 14 Respiratory Effort Blood Pressure 118/63 133/78 H Blood Pressure Mean 81 96 Pulse Ox 98 97 Oxygen Delivery Method Room Air Room Air [facility] <John BaxterJOHNATAHN - Last Filed: 03/28/23 16:42> [facility] Lab Data Labs: Laboratory Results - last 24 hr 03/28/23 03/28/23 03/28/23 14:30 14:30 14:30 WBC 6.9 RBC 5.49 Hgb 16.4 Hct 49.4 MCV 90.0 MCH 29.9 MCHC 33.2 RDW Std Deviation 42.8 RDW Coeff of Rei 13.0 Plt Count 187 MPV 10.1 Immature Gran % (Auto) 0.300 Neut % (Auto) 50.1 Lymph % (Auto) 38.2 [place] % (Auto) 9.2 Eos % (Auto) 1.6 Baso % (Auto) 0.6 Absolute Neuts (auto) 3.5 Absolute Lymphs (auto) 2.65 Nucleated RBC % 0 D-Dimer Quant (PE/DVT) < 0.27 L Sodium 139 Potassium 4.0 Chloride 107 Carbon Dioxide 26.0 Anion Gap 6 BUN 20 H Creatinine 1.00 Estim Creat Clear Calc 79.08 Est GFR (MDRD) Af Amer 97 Est GFR (MDRD) Non-Af 80 BUN/Creatinine Ratio 20.0 Glucose 83 Calcium 9.4 Total Bilirubin 0.80 AST 22 ALT 41 Alkaline Phosphatase 87 Troponin I High Sens 4 Total Protein 8.0 Albumin 3.8 Globulin 4.2 Albumin/Globulin Ratio 0.9 Lipase 60 Radiography Diagnostic Testing: Clinical Impression(s) from Imaging Studies Chest X-Ray 03/28/23 15:00 IMPRESSION: Hyperinflation. The lungs are clear. Electronically Signed: Vernon Stephens MD at 15:18 EDT , Abdomen/Pelvis CT 03/28/23 16:00 IMPRESSION: (NOT LISTED IN ORDER OF SIGNIFICANCE) There are hypodensities in both kidneys. These are consistent for cysts. No follow up required. There are multiple colonic diverticula consistent with diverticulosis. Other findings as above. Electronically Signed: Shan Nguyen MD at 16:33 EDT , EKG Normal sinus rhythm: Attestation: I personally reviewed and interpreted this EKG as follows: Interpretation: Sinus Rhythm Comments: Normal sinus rhythm, rate of 79 bpm, OK interval 128 ms, QRS duration 84 ms, no acute ST elevation, no acute infarct noted. Treatment and Re-Evaluation :: All radiologic examinations were read, reviewed by the emergency department attending. From these reads, a plan of care will be put in place. Patient appears generally well, patient vital signs are stable. Patient presents to the emergency department with complaints of epigastric pain, lump to his lower sternum. Patient received a full cardiac work-up. Patient EKG was unremarkable, patient CBC was unremarkable chemistries troponin were negative, D-dimer was negative. There is no evidence suspect any ACS, NC, pulmonary embolus. Patient chest x-ray was unremarked for any pneumonia. At this time, there is no evidence of any acute cardiopulmonary pathology. However patient does continue to have upper abdominal pain, he will receive a CT scan of the abdomen pelvis without IV contrast. Patient's abdominal CT scan shows diverticula without any diverticulitis, no acute process. At this time, is no evidence of any pancreatitis, cholecystitis. Patient will follow-up outpatient. He is happy with the plan of care and is stable for discharge. <Dr. Hu Nunez, DO - Last Filed: 03/28/23 16:41> [facility] Narrative Medical decision making narrative: I have personally performed a face to face assessment of the patient and have reviewed the MILENA Note. I performed a substantive portion of the visit including all aspects of the following. My hsu findings include: History is [patient presents to the emergency department with a discomfort in his epigastric area that started this morning while eating. Patient then felt like the water was not going down so he can stretch a little bit and that seemed to help his symptoms. He then started feeling the epigastric region and noted that his xiphoid process felt abnormally shaped to him. Patient noted that that area was sore to the touch. Currently that is his main complaint. He is currently being evaluated for PVCs and is wearing a Holter monitor. He has known history of hiatal hernia. He denies exertional dyspnea or diaphoresis. The chest pain did not radiate anywhere. He denies any lifting or straining.] Exam is [HEENT-PERRLA, EOMI. Cranial nerves II through XII grossly intact. TMs clear. Mucous membranes moist. No adenopathy. Cardiovascular-regular rate and rhythm without murmur or ectopy Lungs-clear to auscultation, chest wall stable without crepitus or subcu emphysema. Patient does have tenderness palpation over the xiphoid process that seems to reproduce his pain. He is got some mild epigastric tenderness on exam. There is no rebound, rigidity, or peritoneal signs. No mass palpated. Abdomen-normoactive bowel sounds, soft, nontender, no rebound or rigidity, no peritoneal signs. Extremities-intact ?4, normal range of motion, normal pulses, atraumatic] Medical Decison Making [patient's work-up including EKG and troponin were unremarkable. D-dimer was less than 0.27. Chest x-ray unremarkable. I suspect musculoskeletal chest wall pain. Patient also complained of some upper abdomen pain that he has had off-and-on with sharp stabbing pains in the left upper quadrant which she has had again here during this visit and he is got a history of a hiatal hernia. I did obtain a CT scan of the abdomen pelvis with IV contrast which essentially was unremarkable other than some cysts in the kidneys and his liver. At this point I feel patient can be safely discharged to home. I do not feel he is having acute coronary syndrome. We ruled out PE. I suspect chest pain is musculoskeletal. Etiology of his abdominal pain unclear but there is no evidence of a surgical process or emergent process] Other additions or changes: [None] Lab Data Attestation: I reviewed the patient's lab results. Labs: Laboratory Results - last 24 hr 03/28/23 03/28/23 03/28/23 14:30 14:30 14:30 WBC 6.9 RBC 5.49 Hgb 16.4 Hct 49.4 MCV 90.0 MCH 29.9 MCHC 33.2 RDW Std Deviation 42.8 RDW Coeff of Rei 13.0 Plt Count 187 MPV 10.1 Immature Gran % (Auto) 0.300 Neut % (Auto) 50.1 Lymph % (Auto) 38.2 [place] % (Auto) 9.2 Eos % (Auto) 1.6 Baso % (Auto) 0.6 Absolute Neuts (auto) 3.5 Absolute Lymphs (auto) 2.65 Nucleated RBC % 0 D-Dimer Quant (PE/DVT) < 0.27 L Sodium 139 Potassium 4.0 Chloride 107 Carbon Dioxide 26.0 Anion Gap 6 BUN 20 H Creatinine 1.00 Estim Creat Clear Calc 79.08 Est GFR (MDRD) Af Amer 97 Est GFR (MDRD) Non-Af 80 BUN/Creatinine Ratio 20.0 Glucose 83 Calcium 9.4 Total Bilirubin 0.80 AST 22 ALT 41 Alkaline Phosphatase 87 Troponin I High Sens 4 Total Protein 8.0 Albumin 3.8 Globulin 4.2 Albumin/Globulin Ratio 0.9 Lipase 60 Radiography Diagnostic Testing: Clinical Impression(s) from Imaging Studies Chest X-Ray 03/28/23 15:00 IMPRESSION: Hyperinflation. The lungs are clear. Electronically Signed: Vernon Stephens MD at 15:18 EDT , Abdomen/Pelvis CT 03/28/23 16:00 IMPRESSION: (NOT LISTED IN ORDER OF SIGNIFICANCE) There are hypodensities in both kidneys. These are consistent for cysts. No follow up required. There are multiple colonic diverticula consistent with diverticulosis. Other findings as above. Electronically Signed: Shan Nguyen MD at 16:33 EDT , 1 view chest x-ray obtained interpreted by myself as no evidence of infiltrate or pneumothorax or acute disease process. Radiology in agreement. Discharge Plan Triage Chief Complaint: Chest Pain ED Midlevel Provider: John Baxter ED Provider: Hu Nunez Dx/Rx/DC Orders Clinical Impression: Acute chest wall pain, Abdominal pain, Gastroesophageal reflux disease Instructions: Abdominal Pain, ED Chest Wall Pain, Costochondritis, ED GERD (Adult), ED Abdominal Pain Unkn Cause Male... Prescriptions: No Action azelastine 205.5 mcg (0.15 %) spray,non-aerosol 1 spray INTRANASAL BID PRN (Reason: allergies) montelukast [Singulair] 10 mg tablet 10 mg PO DAILY PRN (Reason: allergies) meclizine 25 mg tablet 25 mg PO BID Qty: 60 5RF rosuvastatin [Crestor] 5 mg Tablet 5 mg PO QHS loratadine 10 mg tablet 10 mg PO DAILY Label Comments: take 1 tablet by mouth once daily Centrum Adults 12 mcg Tablet,Chewable 1 tab PO DAILY famotidine 20 mg Tablet 20 mg PO DAILY metoprolol succinate 50 mg tablet extended release 24 hr 50 mg PO DAILY Qty: 30 11RF Primary Care Provider: Brian Dickinson Referrals: Brian Dickinson DO [Primary Care Provider] - 3-5 Days Activity Restrictions/Additional Instructions: Please follow-up as indicated. Disposition Disposition: Home, Self Care
[2023-03-28 14:55] LABS: Absolute Lymphocyte Count 2.65 X10^3/uL (0.83-4.51); Absolute Neutrophil Count 3.5 X10^3/uL (2.0-7.7); Basophil# 0.04 X10^3/uL; Basophil% 0.6 % (0-1); Eosinophil# 0.11 X10^3/uL; Eosinophils% 1.6 % (0-5); Hematocrit 49.4 % (40-54); Hemoglobin 16.4 g/dL (13.0-16.5); Lymphocyte # 2.65 X10^3/ul (0.83-4.51); Lymphocyte % 38.2 % (19-41); Mean Corp Hgb Conc 33.2 g/dL (32-36); Mean Corpuscular Hgb 29.9 pg (27.0-32.0); Mean Platelet Vol. 10.1 fl (6.2-12.0); Monocyte# 0.64 X10^3/uL; Monocyte% 9.2 % (0-10); NRBC Flagged by Analyzer 0 % (0-5); Neutrophil # 3.47 X10^3/uL (2.7-7.7); Neutrophil % 50.1 % (47-70); Platelet Count 187 K/mm3 (150-450); RBC Distribution Width SD 42.8 fl (35.1-43.9); Red Blood Count 5.49 M/mm3 (4.6-6.2); White Blood Count 6.9 K/mm3 (4.4-11.0)
--- NOTE | 2023-03-28 15:00 | RAD_ITS ---
STUDY: X-RAY CHEST REASON FOR EXAM: Male, 62 years old. Chest pain TECHNIQUE: PA and lateral views of the chest. COMPARISON: Comparison is made with prior study of March 14, 2023. FINDINGS: EKG electrodes are seen. Hyperinflation. The lungs are clear. There is no demonstrated pleural abnormality. Normal size heart. Normal mediastinum and jason. Normal visualized pulmonary arteries. Normal visualized aortic arch and descending thoracic aorta. Normal visualized thoracic spine. Normal visualized ribs, clavicles, and shoulders. There is no demonstrated abnormality of the visualized soft tissue structures of the upper abdomen. RAD/Chest PA and Lateral IMPRESSION: Hyperinflation. The lungs are clear. Electronically Signed: Vernon Stephens MD at 15:18 EDT ,
[2023-03-28 15:13] LABS: D-Dimer Quantitative (DVT/PE) < 0.27 FEU/ug/m (0.27-0.49)
[2023-03-28] MEDS: Famotidine 200 MG/20 ML MDV 20 MG in 0.9% Normal Saline (Pres. free 8 ML 300 MG IV (15:13)
[2023-03-28] MEDS: Mag Hydrox/Al Hydrox/Simeth 30 ML UDC PO (15:13)
[2023-03-28 15:15] VITALS: BP 118/63; PULSE 83; RESP 10; O2SAT 98
[2023-03-28 15:34] LABS: ALB/GLOB Ratio 0.9 RATIO (0.9-2.4); AST(SGOT) 22 U/L (15-37); Alanine Aminotransfer ALT/SGPT 41 U/L (16-61); Albumin, Serum 3.8 g/dL (3.2-5.0); Alkaline Phosphatase 87 U/L (45-117); Anion Gap 6 (5-15); BUN 20 mg/dL (7-18); Calcium,Total 9.4 mg/dL (8.5-10.1); Chloride 107 mmol/L (98-107); EST Glomerular Filtration Rate 80 mL/min (>60); Est Glom Filt Rate - Afr Amer 97 mL/min (>60); Estimated Creatinine Clearance 79.08 ml/min; Globulin 4.2 g/dL (2.2-4.2); Glucose 83 mg/dL (74-106); Lipase 60 U/L (13-75); Sodium Level 139 mmol/L (136-145); Troponin-I HS 4 pg/mL (3.0-78.0)
[2023-03-28 16:00] VITALS: BP 133/78; PULSE 76; RESP 14; O2SAT 97
--- NOTE | 2023-03-28 16:00 | CT_ITS ---
STUDY: CT Abdomen And Pelvis W/ Contrast Injection 03/28/2023 4:24 PM REASON FOR EXAM: Male, 62 years old. Abdominal pain abdominal pain Individualized dose optimization techniques were used for this CT. COMPARISON: None. TECHNIQUE: CT Abdomen And Pelvis W/ Contrast Injection IV 100mL [id number] FINDINGS: There are atherosclerotic calcifications of visualized coronary arteries. The visualized portions of the heart are within normal limits. There are hypodensities in the right lobe of the liver. These are consistent for cysts. No follow up required. There are surgical clips in the gallbladder fossa consistent with a prior cholecystectomy. Normal spleen. Normal pancreas. Normal bilateral adrenal glands. There are hypodensities in the right kidney. These are consistent for cysts. No follow up required. There are hypodensities in the left kidney. These are consistent for cysts. No follow up required. Normal visualized stomach. Normal small intestine. There are multiple colonic diverticula consistent with diverticulosis. The appendix is visualized and appears normal. No acute findings of the abdominal aorta. Normal inferior vena cava. Subcentimeter mesenteric lymph nodes. Normal urinary bladder. There are prostatic calcifications. There is bilateral neural foraminal stenosis at L4-5 and L5-S1. There is an umbilical hernia containing fat. There are diffuse degenerative changes of the visualized lumbar spine. CT/Abdomen/Pelvis W IV Cont ONLY IMPRESSION: (NOT LISTED IN ORDER OF SIGNIFICANCE) There are hypodensities in both kidneys. These are consistent for cysts. No follow up required. There are multiple colonic diverticula consistent with diverticulosis. Other findings as above. Electronically Signed: Shan Nguyen MD at 16:33 EDT ,
[2023-03-28 16:53] VITALS: BP 120/86; PULSE 76; RESP 16; O2SAT 98
== END 2023-03-28 16:55 | disposition home or self-care (01) ==
PROVIDERS: Nurse Practitioner; Emergency Provider Emergency Medicine; PCP Preventive Medicine Occupational Medicine; Visit Provider Emergency Medicine
DX: R07.89 Other chest pain (principal); R10.816 Epigastric abdominal tenderness; K21.9 Gastro-esophageal reflux disease without esophagitis; N28.1 Cyst of kidney, acquired; E78.00 Pure hypercholesterolemia, unspecified; K76.89 Other specified diseases of liver; J45.909 Unspecified asthma, uncomplicated; E66.9 Obesity, unspecified
CPT/HCPCS: 71046; 74177; 80053; 83690; 84484; 85025; 85379; 93005; 96374; 99284; Q9967; A4216; J3490

== ENCOUNTER → 2023-04-30 | Outpatient (CLI) | payer OTHER, SELFPAY ==
[2023-05-02 18:07] LABS: Clam <0.10 kU/L (Class 0); Codfish <0.10 kU/L (Class 0); Corn <0.10 kU/L (Class 0); Egg, White <0.10 kU/L (Class 0); Milk (Cow) 0.12 kU/L (Class 0/I); Peanut <0.10 kU/L (Class 0); SCALLOP <0.10 kU/L (Class 0); SESAME SEED <0.10 kU/L (Class 0); Shrimp <0.10 kU/L (Class 0); Soybean <0.10 kU/L (Class 0); Walnut, (Food) <0.10 kU/L (Class 0); Wheat <0.10 kU/L (Class 0)
== END | disposition home or self-care (01) ==
PROVIDERS: PCP Preventive Medicine Occupational Medicine; Referring Provider Otolaryngology; Visit Provider Otolaryngology
DX: T78.40XA Allergy, unspecified, initial encounter (principal); X58.XXXA Exposure to other specified factors, initial encounter
CPT/HCPCS: 36415; 86003

== ENCOUNTER 2023-05-26 00:24 | Emergency (ER) | payer OTHER, SELFPAY ==
[2023-05-26 00:28] VITALS: BP 130/82; PULSE 84; RESP 16; TEMP 36.4; O2SAT 96; BMI 30.9
[2023-05-26 00:31] VITALS: BP 130/82; PULSE 81; RESP 16; TEMP 36.4; O2SAT 96
--- NOTE | 2023-05-26 00:45 | EKG12_ITS ---
Test Reason : TACHYCARDIA Blood Pressure : / mmHG Vent. Rate : 083 BPM Atrial Rate : 083 BPM P-R Int : 142 ms QRS Dur : 094 ms QT Int : 378 ms P-R-T Axes : 044 059 046 degrees QTc Int : 444 ms Normal sinus rhythm Normal ECG Confirmed by BEAU ELLIS, SARA ([id number]), supervising editor trailer LILLY SUAREZ ([id number]) on 05/27/2023 1:27:37 PM Referred By: Confirmed By:SARA YANEZ MD
--- NOTE | 2023-05-26 00:50 | RAD_ITS ---
INDICATION: chest pain EXAMINATION/TECHNIQUE: X-RAY - XR Chest 1 View COMPARISON: 03/28/2023 FINDINGS: LINES/DEVICES: None. LUNGS: No consolidation, edema or effusion. No pneumothorax. MEDIASTINUM AND CARDIOVASCULAR STRUCTURES: Cardiac silhouette not enlarged. Central airways and mediastinal contour are unremarkable. BONES AND SOFT TISSUES: Unremarkable. RAD/Chest 1 View (Portable) IMPRESSION: No radiographic evidence of acute cardiopulmonary disease. Electronically Signed: Coco Hoang MD at 1:27 EDT ,
[2023-05-26 00:58] LABS: Absolute Lymphocyte Count 2.32 X10^3/uL (0.83-4.51); Absolute Neutrophil Count 3.6 X10^3/uL (2.0-7.7); Basophil# 0.04 X10^3/uL; Basophil% 0.6 % (0-1); Eosinophil# 0.15 X10^3/uL; Eosinophils% 2.3 % (0-5); Hematocrit 46.6 % (40-54); Hemoglobin 15.5 g/dL (13.0-16.5); Lymphocyte # 2.32 X10^3/ul (0.83-4.51); Lymphocyte % 35.1 % (19-41); Mean Corp Hgb Conc 33.3 g/dL (32-36); Mean Corpuscular Hgb 30.2 pg (27.0-32.0); Mean Corpuscular Volume 90.7 fL (80-94); Mean Platelet Vol. 9.6 fl (6.2-12.0); Monocyte# 0.45 X10^3/uL; Monocyte% 6.8 % (0-10); NRBC Flagged by Analyzer 0 % (0-5); Neutrophil # 3.62 X10^3/uL (2.7-7.7); Neutrophil % 54.7 % (47-70); Platelet Count 194 K/mm3 (150-450); RBC Distribution Width CV 12.9 % (11.6-14.6); RBC Distribution Width SD 42.3 fl (35.1-43.9); Red Blood Count 5.14 M/mm3 (4.6-6.2); White Blood Count 6.6 K/mm3 (4.4-11.0)
[2023-05-26 01:16] LABS: Anion Gap 7 (5-15); BUN 22 mg/dL (7-18); BUN/Creat Ratio 20.4 RATIO (10-20); Calcium,Total 8.5 mg/dL (8.5-10.1); Chloride 106 mmol/L (98-107); Creatinine, Serum 1.08 mg/dL (0.70-1.30); EST Glomerular Filtration Rate 73 mL/min (>60); Est Glom Filt Rate - Afr Amer 89 mL/min (>60); Estimated Creatinine Clearance 73.23 ml/min; Glucose 195 mg/dL (74-106); Potassium 3.5 mmol/L (3.5-5.1); Sodium Level 139 mmol/L (136-145); Troponin-I HS (w/2H Reflex) 4 pg/mL (3.0-78.0)
--- NOTE | 2023-05-26 01:27 | EDS_ITS ---
HPI History of Present Illness Chief Complaint: Chest Pain Informant: patient Narrative Narrative: Patient presents with palpitations and some chest pressure. Patient's been having problem with palpitations and PVCs for a year or so. He had Holter monitor recently. He is also been on metoprolol. He states metoprolol does not seem to decrease the frequency of his PVCs but it does decrease his exercise tolerance when he takes it. He is generally very active and asymptomatic with the activity. Tonight he noticed his heart rate was going fast again. He is also had history of nonspecific tachycardia. When he had this he had a small area of pressure in the left upper chest. He states it was not pain but it was pressure. The symptoms occurred about 6-6 and half hours ago now. They are totally resolved. He has had these evaluated before. They have never done a heart catheterization on him. He has never had elevated troponins. He has no family history of cardiovascular disease. His mother did have some dysrhythmias though. He states his cholesterol is consistently below 200. He does take Crestor. He actually does not have a history of high blood pressure. He has had no leg pain or swelling. He is not diabetic. He has never been a smoker [facility] Medical History Asthma Cardiology follow-up encounter DVT (deep venous thrombosis) Gastric reflux GERD (gastroesophageal reflux disease) Hiatal hernia High cholesterol High triglycerides History of blood clots History of DVT (deep vein thrombosis) History of echocardiogram History of Holter monitoring History of stress test Hyperlipidemia Insomnia Migraines Non-smoker Obesity Osteoarthritis Osteoporosis Seasonal allergies Wears glasses Home Medications rosuvastatin 5 mg tablet (Crestor) 5 mg PO QHS 08/25/21 [History Last Taken Unknown] montelukast 10 mg tablet (Singulair) 10 mg PO DAILY PRN allergies 09/27/22 [History Last Taken Unknown] azelastine 205.5 mcg (0.15 %) nasal spray 1 spray intranasal BID PRN allergies 12/19/22 [History Last Taken Unknown] meclizine 25 mg tablet 25 mg PO BID #60 tabs 01/29/23 [Rx Last Taken Unknown] loratadine 10 mg tablet 10 mg PO DAILY 02/14/23 [History Last Taken Unknown] multivitamin with minerals-folic acid 12 mcg chewable tablet (Centrum Adults) 1 tab PO DAILY 02/14/23 [History Last Taken Unknown] famotidine 20 mg tablet 20 mg PO DAILY 03/14/23 [History Last Taken Unknown] metoprolol succinate 50 mg tablet,extended release 24 hr 50 mg PO DAILY #30 tabs 05/23/23 [Rx Last Taken Unknown] Allergy/AdvReac Type Severity Reaction Status Date / Time dairy AdvReac Food Uncoded 05/26/23 00:27 Allergy Family History Sister Diabetes Cancer Mother Diabetes Arthritis Heart disease Father Hypertension Arthritis Colon cancer High cholesterol Brother Kidney disease Surgical History H/O arthroscopy of shoulder History of cholecystectomy History of foot surgery Hx of arthroscopy of shoulder right finger cyst excision Social History household members: spouse Smoking Status: Never smoker second hand exposure: No alcohol intake: current substance use type: does not use what type of physical activity do you participate in: walking and other frequency: 3-4 times per week ne/baptist: Jewish seatbelt use: always ROS ROS ED ROS Narrative A complete review of systems was performed and is negative except as documented in the history of present illness. Some specific details below. Constitutional: No recent fevers or chills. EYE: No discharge, visual complaints, or pain. ENT: No difficulty swallowing. No swelling. No pain. No reflux symptoms. CV: See history of present illness. Respiratory: Not short of breath. GI: No abdominal pain. No nausea vomiting diarrhea. No blood in stool. : No frequency dysuria or hematuria. Musculoskeletal: No recent trauma. No pains. No swelling. Skin: No rash. Nondiaphoretic. Neuro: No weakness or numbness. Endocrine: No polyuria or polydipsia. EXAM Physical Exam Narrative Exam Narrative: CONSTITUTIONAL: Patient is nontoxic in appearance. The patient looks comfortable. Work of breathing looks normal. HEENT: No notable trauma. Mucous membranes moist. EYES: No conjunctival injection. No proptosis. NECK:No JVD. No stridor. CARDIOVASCULAR: Regular rate. Regular rhythm. No notable murmur. No JVD. On the monitor, he has a heart rate that runs about 80. He has occasional PVCs. I see no couplets. He will occasionally have short sinus pauses. Although he can feel most of these, he does not get chest pressure with them. RESPIRATORY: No respiratory distress. Breathing is unlabored. No wheezes. No rhonchi. No rales. No pain with a deep breath. No chest wall tenderness. GASTROINTESTINAL: Not distended. Bowel sounds are normal. No tenderness. No guarding. No rebound. No palpable mass. No bruit is heard. GENITOURINARY: No tenderness over the bladder. No CVA tenderness. MUSCULOSKELETAL: Atraumatic. No peripheral edema. No cord. No tenderness along the deep venous system. No asymmetry. No distended veins. NEUROLOGICAL: Patient is alert and appropriate. No focal deficit noted. SKIN: No noted rashes. No diaphoresis. PSYCHIATRIC: Patient is calm. Mood is appropriate. Const Vital Signs: 05/26/23 00:28 05/26/23 00:31 05/26/23 00:45 Temperature 97.5 F L 97.5 F L Temperature Source Temporal Temporal Pulse Rate 84 81 Respiratory Rate 16 16 Respiratory Effort Blood Pressure 130/82 H 130/82 H Blood Pressure Mean 98 98 Pulse Ox 96 96 Oxygen Delivery Method Room Air Room Air Room Air 05/26/23 00:46 05/26/23 02:26 05/26/23 03:00 Temperature Temperature Source Pulse Rate 67 65 Respiratory Rate 15 18 Respiratory Effort Normal Blood Pressure 112/56 L 115/68 Blood Pressure Mean 74 83 Pulse Ox 94 96 Oxygen Delivery Method MDM MDM MDM Narrative Medical decision making narrative: Patient CBC is overall normal. Patient's electrolytes are normal except his glucose is elevated at 195. He states at home his blood sugar was 89. He was wondering if this might be causing his symptoms so he ate a lot. This may have raised it. He has the ability to watch this at home and can follow-up. Inches troponin is 4. Patient's repeat troponin is 6. Patient has had occasional PVCs PACs and occasional quick short sinus pause or respiratory variation. He has had these for a long time and we have seen a few of these tonight. But he is overall asymptomatic. I think with 2 negative troponins very low, no symptoms and his long history it safe to have him follow- up. Lab Data Attestation: I reviewed the patient's lab results. Labs: Laboratory Results - last 24 hr 05/26/23 05/26/23 00:50 02:50 WBC 6.6 RBC 5.14 Hgb 15.5 Hct 46.6 MCV 90.7 MCH 30.2 MCHC 33.3 RDW Std Deviation 42.3 RDW Coeff of Rei 12.9 Plt Count 194 MPV 9.6 Immature Gran % (Auto) 0.500 Neut % (Auto) 54.7 Lymph % (Auto) 35.1 Starke % (Auto) 6.8 Eos % (Auto) 2.3 Baso % (Auto) 0.6 Absolute Neuts (auto) 3.6 Absolute Lymphs (auto) 2.32 Nucleated RBC % 0 Sodium 139 Potassium 3.5 Chloride 106 Carbon Dioxide 26.0 Anion Gap 7 BUN 22 H Creatinine 1.08 Estim Creat Clear Calc 73.23 Est GFR (MDRD) Af Amer 89 Est GFR (MDRD) Non-Af 73 BUN/Creatinine Ratio 20.4 H Glucose 195 H Calcium 8.5 Troponin I High Sens 4 6 Radiography Diagnostic Testing: Clinical Impression(s) from Imaging Studies Chest X-Ray 05/26/23 00:50 IMPRESSION: No radiographic evidence of acute cardiopulmonary disease. Electronically Signed: Coco Hoang MD at 1:27 EDT , EKG Initial EKG: Comments: My independent interpretation the patient's EKG done for chest pressure and palpitation shows a normal sinus rhythm with a rate of 83. No ventricular ectopy on this EKG. No acute ST elevation or depression. ND interval, QRS duration and QTc are all normal. Discharge Plan Triage Chief Complaint: Chest Pain ED Provider: Tavon Sood Dx/Rx/DC Orders Clinical Impression: Palpitations, Frequent PVCs, Pressure in chest Instructions: PVCs, ED Chest Pain, Uncertain Cause Prescriptions: No Action azelastine 205.5 mcg (0.15 %) spray,non-aerosol 1 spray INTRANASAL BID PRN (Reason: allergies) montelukast [Singulair] 10 mg tablet 10 mg PO DAILY PRN (Reason: allergies) meclizine 25 mg tablet 25 mg PO BID Qty: 60 5RF rosuvastatin [Crestor] 5 mg Tablet 5 mg PO QHS loratadine 10 mg tablet 10 mg PO DAILY Patient Comments: take 1 tablet by mouth once daily Centrum Adults 12 mcg Tablet,Chewable 1 tab PO DAILY famotidine 20 mg Tablet 20 mg PO DAILY metoprolol succinate 50 mg tablet extended release 24 hr 50 mg PO DAILY Qty: 30 11RF Primary Care Provider: Brian Dickinson Referrals: Gene Chao MD [Med Staff - Active Staff] - 3-5 Days Brian Dickinson DO [Primary Care Provider] - Disposition Disposition: Home, Self Care
[2023-05-26 02:26] VITALS: BP 112/56; PULSE 67; RESP 15; O2SAT 94
[2023-05-26 02:55] LABS: Reflex Troponin-HS? (from REC) Y
[2023-05-26 03:00] VITALS: BP 115/68; PULSE 65; RESP 18; O2SAT 96
[2023-05-26 03:12] LABS: Troponin-I HS 6 pg/mL (3.0-78.0)
[2023-05-26 03:42] VITALS: BP 115/68
== END 2023-05-26 03:42 | disposition home or self-care (01) ==
PROVIDERS: Emergency Provider Emergency Medicine; PCP Preventive Medicine Occupational Medicine; Visit Provider Emergency Medicine
DX: R07.89 Other chest pain (principal); E78.00 Pure hypercholesterolemia, unspecified; R00.2 Palpitations; I49.3 Ventricular premature depolarization; J45.909 Unspecified asthma, uncomplicated; Z79.899 Other long term (current) drug therapy
CPT/HCPCS: 71045; 80048; 84484; 85025; 93005; 99284; A4216

== ENCOUNTER → 2024-03-03 | Outpatient (CLI) | payer OTHER, SELFPAY ==
[2024-03-03 12:37] LABS: Hematocrit 47.8 % (40-54); Hemoglobin 15.7 g/dL (13.0-16.5); Mean Corp Hgb Conc 32.8 g/dL (32-36); Mean Corpuscular Hgb 30.1 pg (27.0-32.0); Mean Corpuscular Volume 91.6 fL (80-94); Mean Platelet Vol. 9.4 fl (6.2-12.0); Platelet Count 217 K/mm3 (150-450); RBC Distribution Width CV 12.9 % (11.6-14.6); RBC Distribution Width SD 43.1 fl (35.1-43.9); Red Blood Count 5.22 M/mm3 (4.6-6.2); White Blood Count 5.4 K/mm3 (4.4-11.0)
[2024-03-03 13:42] LABS: Anion Gap 4 (5-15); BUN 14 mg/dL (7-18); BUN/Creat Ratio 13.6 RATIO (10-20); Calcium,Total 9.7 mg/dL (8.5-10.1); Chloride 107 mmol/L (98-107); Creatinine, Serum 1.03 mg/dL (0.70-1.30); EST Glomerular Filtration Rate 77 mL/min (>60); Est Glom Filt Rate - Afr Amer 94 mL/min (>60); Glucose 107 mg/dL (74-106); Potassium 4.3 mmol/L (3.5-5.1); Sodium Level 139 mmol/L (136-145)
== END | disposition home or self-care (01) ==
PROVIDERS: PCP Preventive Medicine Occupational Medicine; Referring Provider Internal Medicine Cardiovascular Disease; Visit Provider Internal Medicine Cardiovascular Disease
DX: R00.2 Palpitations (principal); R06.00 Dyspnea, unspecified
CPT/HCPCS: 36415; 80048; 85027

== ENCOUNTER → 2024-08-07 | Outpatient (CLI) | payer OTHER, SELFPAY ==
--- NOTE | 2024-08-07 09:50 | CDU_ITS ---
Reason For Study: Dizziness Rt. Velocities/BP Lt. Velocities/BP Prox CCA 63.6/15.4 cm/sec. Prox CCA 97.1/19 cm/sec. Mid CCA 76.8/12.6 cm/sec. Mid CCA 90.5/20.1 cm/sec. Dist CCA 59.8/14.5 cm/sec. Dist CCA 64.1/20.1 cm/sec. Prox ICA 45.6/14.2 cm/sec. Prox ICA 64.1/13.5 cm/sec. Mid ICA 52.6/20.3 cm/sec. Mid ICA 41.2/16.5 cm/sec. Dist ICA 63.1/22.9 cm/sec. Dist ICA 51.7/15.1 cm/sec. Rt. ICA/CCA = 0.82. Lt. ICA/CCA = 0.71. Prox ECA 97.1/17.9 cm/sec. Prox ECA 80.6/13.5 cm/sec. Rt. Vert. 32.5/8.1 cm/sec. Lt. Vert. 23.8/7.2 cm/sec. Right Extracranial There is intimal thickening but no significant atherosclerotic plaque noted in the right common carotid artery. There is heterogeneous, irregular atherosclerotic plaque noted in the right internal carotid artery. There is intimal thickening but no significant atherosclerotic plaque noted in the right external carotid artery. Antegrade flow is noted in the right vertebral artery. Left Extracranial There is intimal thickening but no significant atherosclerotic plaque noted in the left common carotid artery. There is intimal thickening but no significant atherosclerotic plaque noted in the left internal carotid artery. There is intimal thickening but no significant atherosclerotic plaque noted in the left external carotid artery. Antegrade flow is noted in the left vertebral artery. Procedure This is a Carotid Duplex examination using B-mode, color flow and specral Doppler. Carotid Duplex 26830. Exam performed in department. VL/Carotid Duplex Ultrasound Interpretation Summary Mild (<50%) stenosis right extracranial internal carotid. No significant athero sclerotic plaque or stenosis noted in the left internal carotid artery. Flow within the vertebral a rteries is antegrade bilaterally. Ordering Physician: Rc Estes Referring Physician: Brian Dickinson Performed By: Liz Ria RVT
== END | disposition home or self-care (01) ==
PROVIDERS: PCP Preventive Medicine Occupational Medicine; Referring Provider Psychiatry & Neurology Neurology; Visit Provider Psychiatry & Neurology Neurology
DX: R42 Dizziness and giddiness (principal)
CPT/HCPCS: 93880

== ENCOUNTER 2025-03-26 10:44 | Emergency (ER) | payer OTHER, SELFPAY ==
[2025-03-26 10:45] VITALS: BP 127/80; PULSE 85; RESP 16; TEMP 36.4; O2SAT 99; BMI 30.7
--- NOTE | 2025-03-26 10:52 | EKG12_ITS ---
Test Reason : CP Blood Pressure : */* mmHG Vent. Rate : 85 BPM Atrial Rate : 85 BPM P-R Int : 140 ms QRS Dur : 86 ms QT Int : 362 ms P-R-T Axes : 41 60 40 degrees QTcB Int : 430 ms Normal sinus rhythm Normal ECG Confirmed by IKER ELLIS, VIDAL ([id number]), assignment editor LILLY SUAREZ ([id number]) on 03/29/2025 6:52:38 AM Referred By: PRABHU/DANIELLE Confirmed By: VIDAL DONG MD
--- NOTE | 2025-03-26 11:08 | RAD_ITS ---
PROCEDURE: CHEST PA AND LATERAL 03/26/2025 REASON FOR EXAM: CHEST PAIN TECHNIQUE: Frontal and lateral views of the chest. COMPARISON: AP chest 05/26/2023 and PA and lateral chest of 03/28/2023 RAD/Chest PA and Lateral IMPRESSION: Right upper quadrant abdominal surgical clips are again noted. Lungs appear clear of acute disease. No pleural effusion no pneumothorax is evident. The cardiomediastinal silhouette is within the normal range, and unchanged. Minimal degenerative changes of the thoracic spine are seen. Reading Location: [id number]
--- NOTE | 2025-03-26 11:08 | EX.ED.DYSGE1 ---
HPI History of Present Illness Chief Complaint: Chest Pain Narrative Narrative: Patient is a 64-year-old male with a past medical history of CAD status post stent in 2023, history of DVT after a lower extremity injury, hypercholesteremia, hyperlipidemia, hiatal hernia who presents to the emergency department with a chief complaint of left-sided chest pain. Patient states that for the past few days now he has had chest pressure and states that it does radiate to his jaw. He states that he also has some shortness of breath but denies any recent travels. He states that talking makes his shortness of breath worse. He states that if he gets up and moves around he does not have worsening chest pain. Patient states that he has a appointment with his language and literature division chair first thing of next week but felt that he could not wait any longer and came here to be evaluated. Patient denies smoking history, drug use, admits to occasional alcohol use [facility] Medical History Hiatal hernia Osteoporosis DVT (deep venous thrombosis) Migraines Osteoarthritis High triglycerides History of blood clots Seasonal allergies History of DVT (deep vein thrombosis) Wears glasses High cholesterol Gastric reflux Non-smoker Cardiology follow-up encounter History of Holter monitoring History of echocardiogram History of stress test Asthma Hyperlipidemia GERD (gastroesophageal reflux disease) Insomnia Obesity Home Medications ?Medication ?Instructions ?Recorded ?Last Taken ?Type rosuvastatin 5 mg tablet (Crestor) 5 mg PO QHS 08/25/21 Unknown History montelukast 10 mg tablet 10 mg PO DAILY PRN allergies 09/27/22 Unknown History (Singulair) azelastine 205.5 mcg (0.15 %) 1 spray intranasal BID PRN 12/19/22 Unknown History nasal spray allergies loratadine 10 mg tablet 10 mg PO DAILY 02/14/23 Unknown History multivitamin with minerals-folic 1 tab PO DAILY 02/14/23 Unknown History acid 12 mcg chewable tablet (Centrum Adults) famotidine 20 mg tablet 20 mg PO DAILY 03/14/23 Unknown History metoprolol succinate 50 mg 50 mg PO DAILY #30 tabs 05/23/23 Unknown Rx tablet,extended release 24 hr hydroxyzine HCl 25 mg tablet 25 mg PO BID PRN anxiety #60 tabs 07/20/24 Unknown Rx meclizine 25 mg tablet 25 mg PO BID dizziness #60 tabs 07/20/24 Unknown Rx Allergy/AdvReac Type Severity Reaction Status Date / Time Milk Containing Products Allergy throat Verified 03/26/25 10:51 (Dairy) tightens escitalopram (From Lexapro) AdvReac suicidal Verified 03/26/25 10:51 ideation Family History Sister Diabetes Cancer Mother Diabetes Arthritis Heart disease Father Hypertension Arthritis Colon cancer High cholesterol Brother Kidney disease Surgical History History of foot surgery Hx of arthroscopy of shoulder History of cholecystectomy right finger cyst excision H/O arthroscopy of shoulder Social History household members: spouse Smoking Status: Never smoker second hand exposure: No alcohol intake: current substance use type: does not use what type of physical activity do you participate in: walking and other frequency: 3-4 times per week ne/shinto: Cheondoism seatbelt use: always ROS ROS ED ROS Narrative Constitutional: Denies fevers, chills, headaches Eyes: Denies change in vision double vision blurry vision Cardiovascular: Complains of chest pressure as noted above denies palpitations Respiratory: Complains of shortness of breath as noted above denies coughing wheezing Abdomen: Complains of nausea denies abdominal pain vomiting diarrhea : Denies urinary symptoms Neurological: Denies numbness, weakness, tingling Musculoskeletal: Complains of back pain but has since resolved Skin: Denies rashes or lesions EXAM Physical Exam Narrative Exam Narrative: General: Patient lying in bed rest comfortably did not appear to be in acute distress Head: Atraumatic, normocephalic Eyes: PERRL bilaterally, EOMI bilateral, no conjunctival injection noted Neck: Soft, supple, trachea midline Cardiovascular: Regular rate and rhythm Respiratory: Clear to auscultation bilaterally Abdomen: Soft, nondistended, no tenderness palpation Extremities: Radial pulses +2/4 in the bilateral extremities, +5/5 strength noted in the bilateral upper and lower extremities, no pedal edema on exam Neurological: Patient following commands knew that he was at [facility] year is 2024 Skin: Warm, dry, tact no rashes or lesions noted Const Vital Signs: 03/26/25 10:45 03/26/25 11:01 03/26/25 11:14 Temperature 97.6 F L Temperature Source Oral Pulse Rate 85 Respiratory Rate 16 Respiratory Effort Normal Non-Labored Blood Pressure 127/80 H Blood Pressure Mean 95 Pulse Ox 99 Oxygen Delivery Method Room Air Room Air 03/26/25 12:17 03/26/25 12:42 03/26/25 14:00 Temperature Temperature Source Pulse Rate 88 83 82 Respiratory Rate 16 18 18 Respiratory Effort Blood Pressure 130/82 H 125/69 H 127/75 H Blood Pressure Mean 98 87 92 Pulse Ox 98 100 99 Oxygen Delivery Method Room Air Room Air Room Air MDM MDM MDM Narrative Medical decision making narrative: Patient is a 64-year-old male who presented to the emergency department the chief complaint of chest pressure. On the differential diagnosis includes but not limited to ACS, pneumonia, pneumothorax, CHF. Once workup is obtained reviewed he will be reevaluated. Patient CBC reviewed showed no evidence leukocytosis white blood count normal at 5.4, he was 16.1, platelet count of 190. Patient sodium is 139, potassium normal at 4.2, creatinine normal at 1.07. Patient's troponin was less than 6 with a delta troponin obtained at 6. Patient's EKG showed sinus rhythm with a rate of 85 bpm. Patient proBNP was less than 36. Patient's chest x-ray was reviewed by myself and by radiology which showed no acute cardiopulmonary processes there is right upper quadrant abdominal surgical clips again noted. Patient ambulated well here in the emergency department had no chest pain and feels well overall. Called and discussed case with on-call language and literature division chair Dr. Robert who states the patient can follow-up at his scheduled appointment early next week with [facility]. He was advised to return with worsening symptoms or concerns. At this point time do have low suspicion that this is cardiac in nature as he has had this for several days now and normal cardiac workup. Also he has no pain with exertion. Discussed this plan with the patient and at bedside they are agreeable this plan all question concerns answered he is discharged home in stable condition. Lab Data Labs: Laboratory Results - last 24 hr 03/26/25 03/26/25 11:00 12:45 WBC 5.4 RBC 5.29 Hgb 16.1 Hct 48.2 MCV 91.1 MCH 30.4 MCHC 33.4 RDW Std Deviation 43.0 RDW Coeff of Rei 13.1 Plt Count 190 MPV 10.2 Immature Gran % (Auto) 0.200 Neut % (Auto) 61.7 Lymph % (Auto) 30.3 Gaines % (Auto) 6.1 Eos % (Auto) 1.1 Baso % (Auto) 0.6 Absolute Neuts (auto) 3.3 Absolute Lymphs (auto) 1.63 Nucleated RBC % 0 Sodium 139 Potassium 4.2 Chloride 102 Carbon Dioxide 25.3 Anion Gap 12 BUN 14 Creatinine 1.07 Estim Creat Clear Calc 81.52 Est GFR (MDRD) Non-Af 77 BUN/Creatinine Ratio 13.5 Glucose 125 H Calcium 9.5 Troponin T High Sens < 6 Troponin T Hi Sens 2 Hr 6 NT pro BNP II < 36 Radiography Diagnostic Testing: Clinical Impression(s) from Imaging Studies Chest X-Ray 03/26/25 11:08 IMPRESSION: Right upper quadrant abdominal surgical clips are again noted. Lungs appear clear of acute disease. No pleural effusion no pneumothorax is evident. The cardiomediastinal silhouette is within the normal range, and unchanged. Minimal degenerative changes of the thoracic spine are seen. Reading Location: [address] Discharge Plan Triage Chief Complaint: Chest Pain ED Provider: Mitchel Morel Dx/Rx/DC Orders Clinical Impression: Chest pain Prescriptions: No Action azelastine 205.5 mcg (0.15 %) spray,non-aerosol 1 spray INTRANASAL BID PRN (Reason: allergies) montelukast [Singulair] 10 mg tablet 10 mg PO DAILY PRN (Reason: allergies) hydroxyzine HCl 25 mg tablet 25 mg PO BID PRN (Reason: anxiety) Qty: 60 5RF meclizine 25 mg tablet 25 mg PO BID Qty: 60 5RF rosuvastatin [Crestor] 5 mg Tablet 5 mg PO QHS loratadine 10 mg tablet 10 mg PO DAILY Patient Comments: take 1 tablet by mouth once daily Centrum Adults 12 mcg Tablet,Chewable 1 tab PO DAILY famotidine 20 mg Tablet 20 mg PO DAILY metoprolol succinate 50 mg tablet extended release 24 hr 50 mg PO DAILY Qty: 30 11RF Primary Care Provider: Care Physician,No Primary Referrals: Brian Dickinson DO [Non-Staff] - Activity Restrictions/Additional Instructions: Your blood work did not show any acute findings here today and your chest x-ray did not either. Return with worsening symptoms or any concerns. Follow-up with your language and literature division chair at your scheduled appointment next week. Print Language: Mohawk Disposition Disposition: Home, Self Care
[2025-03-26 11:18] LABS: Absolute Lymphocyte Count 1.63 X10^3/uL (0.83-4.51); Absolute Neutrophil Count 3.3 X10^3/uL (2.0-7.7); Basophil# 0.03 X10^3/uL; Basophil% 0.6 % (0-1); Eosinophil# 0.06 X10^3/uL; Eosinophils% 1.1 % (0-5); Hematocrit 48.2 % (40-54); Hemoglobin 16.1 g/dL (13.0-16.5); Lymphocyte # 1.63 X10^3/ul (0.83-4.51); Lymphocyte % 30.3 % (19-41); Mean Corp Hgb Conc 33.4 g/dL (32-36); Mean Corpuscular Hgb 30.4 pg (27.0-32.0); Mean Corpuscular Volume 91.1 fL (80-94); Mean Platelet Vol. 10.2 fl (6.2-12.0); Monocyte# 0.33 X10^3/uL; Monocyte% 6.1 % (0-10); NRBC Flagged by Analyzer 0 % (0-5); Neutrophil # 3.32 X10^3/uL (2.7-7.7); Neutrophil % 61.7 % (47-70); Platelet Count 190 K/mm3 (150-450); RBC Distribution Width CV 13.1 % (11.6-14.6); Red Blood Count 5.29 M/mm3 (4.6-6.2); White Blood Count 5.4 K/mm3 (4.4-11.0)
[2025-03-26 11:50] LABS: Anion Gap 12 (5-15); BUN 14 mg/dL (4-19); BUN/Creat Ratio 13.5 RATIO (10-20); Calcium,Total 9.5 mg/dL (7.6-11.0); Carbon Dioxide 25.3 mmol/L (21.0-32.0); Chloride 102 mmol/L (98-108); Creatinine, Serum 1.07 mg/dL (0.70-1.20); EST Glomerular Filtration Rate 77 (>60); Estimated Creatinine Clearance 81.52 ml/min (50-250); Glucose 125 mg/dL (70-99); Potassium 4.2 mmol/L (3.3-5.1); Sodium Level 139 mmol/L (133-145)
[2025-03-26 11:51] LABS: Pro- Brain NATRIURETIC PEPTIDE < 36 pg/mL (<=900)
[2025-03-26 12:03] LABS: Troponin T High Sensitivity < 6 ng/L (<=22)
[2025-03-26 12:17] VITALS: BP 130/82; PULSE 88; RESP 16; O2SAT 98
[2025-03-26 12:42] VITALS: BP 125/69; PULSE 83; RESP 18; O2SAT 100
[2025-03-26 13:15] LABS: Troponin T High Sens 2 HR 6 ng/L (<=22)
[2025-03-26 13:22] VITALS: O2SAT 99
[2025-03-26 14:00] VITALS: BP 127/75; PULSE 82; RESP 18; O2SAT 99
--- NOTE | 2025-03-26 14:40 | CM.ED ---
Social work Reason for referral: no PCP Referral source: case find This SW entered patient's room, introducing self and role at [facility]. Patient was observed sitting up in bed with patient's significant other, bhargavi Hernández. Patient denied not having a PCP, reporting simply not knowing earlier who was taking over patient's prior primary care. Patient reported knowing now that primary care is being provided by [facility]; this was updated in patient's chart. Patient denied further needs at this time. Ana Rosa Jasso, PRODUCT SAFETY SPECIALIST, GAME ATTENDANT
== END 2025-03-26 14:48 | disposition home or self-care (01) ==
PROVIDERS: Emergency Provider Emergency Medicine; Visit Provider Emergency Medicine
DX: R07.89 Other chest pain (principal); I25.10 Atherosclerotic heart disease of native coronary artery without angina pectoris; E78.00 Pure hypercholesterolemia, unspecified; Z86.718 Personal history of other venous thrombosis and embolism; R06.02 Shortness of breath; K21.9 Gastro-esophageal reflux disease without esophagitis
CPT/HCPCS: 71046; 80048; 83880; 84484; 85025; 93005; 99284; A4216

== ENCOUNTER → 2025-06-25 | Outpatient (CLI) | payer MEDICARE, OTHER, SELFPAY ==
[2025-06-25 19:02] LABS: Barbiturate Urine NEGATIVE (< 200 ng/mL); Benzodiazepine Urine NEGATIVE (< 200 ng/mL); PCP Urine NEGATIVE (< 25 ng/mL); THC Urine NEGATIVE (< 50 ng/mL)
== END | disposition home or self-care (01) ==
LOC: MTLAB 15:36
PROVIDERS: Referring Provider Internal Medicine Pulmonary Disease; Visit Provider Internal Medicine Pulmonary Disease
DX: G47.10 Hypersomnia, unspecified (principal)
CPT/HCPCS: 80307

== ENCOUNTER 2025-07-14 07:41 | Observation (INO) | payer MEDICARE, OTHER, SELFPAY ==
[2025-07-14] VITALS (12 sets, daily range): BP systolic 125–155; BP diastolic 68–92; PULSE 74–99; RESP 12–18; TEMP 36.5–36.8; O2SAT 97–100; BMI 31.4; BMI 69.4
--- NOTE | 2025-07-14 07:54 | EKG12_ITS ---
Test Reason : STROKE Blood Pressure : */* mmHG Vent. Rate : 88 BPM Atrial Rate : 88 BPM P-R Int : 146 ms QRS Dur : 86 ms QT Int : 360 ms P-R-T Axes : 32 51 44 degrees QTcB Int : 435 ms Normal sinus rhythm Normal ECG When compared with ECG of 26-Mar-2025 10:51, No significant change was found Confirmed by BEAU ELLIS, SARA ([id number]), electronic news gathering editor ANDERSON LITTLE ([id number]) on 07/16/2025 11:04:27 AM Referred By: Confirmed By: SARA YANEZ MD
--- NOTE | 2025-07-14 07:54 | CT_ITS ---
EXAM: NONCONTRAST CT SCAN OF THE HEAD CLINICAL HISTORY: Neuro deficit, stroke COMPARISON: June 20, 2022 TECHNIQUE: Serial axial series through the head were obtained without contrast. 2-D coronal and sagittal reformats were then obtained. FINDINGS: Brain: There is no acute large territorial infarct, intracranial hemorrhage, midline shift or mass effect. There are atherosclerotic vascular calcifications involving the bilateral carotid siphons. The sella and pineal gland regions appear unremarkable. There is no evidence of cerebellar tonsillar herniation. Ventricles: There is no acute hydrocephalus. Basilar cisterns are patent. Paranasal sinuses: Bilateral ethmoid sinus disease is noted. Mucosal thickening is visible in the right aspect of the sphenoid sinus. Mastoid air cells: Well-aerated. Calvarium: The bony calvarium is intact. Orbits: The bilateral globes are symmetric, without retrobulbar compressive mass lesion or hemorrhage. CT/STROKE Brain/Head without Cont IMPRESSION: Bilateral ethmoid sinus disease is noted. Mucosal thickening is visible in the right aspect of the sphenoid sinus. No acute intracranial pathology. Reading Location: [facility]
--- NOTE | 2025-07-14 07:55 | CT_ITS ---
PROCEDURE: STROKE CTA HEAD AND NECK W/CON 07/14/2025 REASON FOR EXAM: NEURO DEFICIT, ACUTE, STROKE SUSPECTED TECHNIQUE: Procedure Code: CTCTA.ST.HN Modality: CT Procedure: STROKE CTA HEAD AND NECK W/CON Multiplanar Sagittal and Coronal images were obtained. CONTRAST: 100 cc Isovue 370 One or more dose reduction techniques were used (e.g., Automated exposure control, adjustment of the mA and/or kV according to patient size, use of iterative reconstruction technique). RADIATION DOSE SUMMARY: DLP: 705 mGycm COMPARISON: None FINDINGS: Aortic Arch: Unremarkable Brachiocephalic and Subclavians: Patent RIGHT Carotid: Right CCA: Patent Right ICA: Patent Maximum stenosis (NASCET): 0 % Right ECA: Patent LEFT Carotid: Left CCA: Patent Left ICA: Patent Maximum stenosis (NASCET): 0 % Left ECA: Patent Vertebrals: Patent RIGHT Vertebral: Patent LEFT Vertebral: Patent Anatomy: There is heavily calcified plaque is noted in the intracranial portion of the right and left ICA in the carotid siphon, which partly obscures the lumen with no evidence of occlusion Aneurysm or avm: None Anterior cerebral arteries: Patent Middle cerebral arteries: Patent Basilar artery: Patent Posterior cerebral arteries: Patent Other major branches of the posterior circulation: Patent Major venous structures: Patent Other findings: Neck: Clear lungs: Clear bones: There is no acute bony abnormality CT/STROKE CTA Head AND Neck W/Con IMPRESSION: There is heavily calcified plaque is noted in the intracranial portion of the r ight and left ICA in the carotid siphon, which partly obscures the lumen with no evidence of occlusion. Reading Location: [facility]
--- NOTE | 2025-07-14 07:55 | RAD_ITS ---
PROCEDURE: CHEST 1 VIEW 07/14/2025 REASON FOR EXAM: NEURO DEFICIT, ACUTE, STROKE SUSPECTED TECHNIQUE: Frontal view of the chest. COMPARISON: None FINDINGS: Heart size and mediastinal configuration are within normal limits. There is no focal infiltrate or consolidation. There is no pneumothorax or effusion. There is no acute bony abnormality. There is no visible atherosclerosis. RAD/Chest 1 View IMPRESSION: No acute process is identified in the chest. Reading Location: [facility]
--- NOTE | 2025-07-14 07:55 | ED.VIS.STROK ---
HPI History of Present Illness Chief Complaint: Neuro S/Sx Informant: patient Onset/Context/Timing Onset: Today Context: Sudden Onset Timing: Continuous Quality and Location: Positive for Left Arm Parasthesia and - (Visual disturbance) Onset: 0650 today (approximately 45 minutes prior to arrival) Worsened by: Nothing Relieved by: Nothing Associated Symptoms Associated Symptoms: Positive for Headache; Negative for Nausea, Vomiting or Chest Pain Narrative Narrative: Patient presents with visual disturbance that began approximately 45 minutes prior to arrival. Patient states he saw flashes of colors in the peripheral vision. Patient states that later he started feeling some heaviness in his left arm. Patient admits to some paresthesias in his left arm. Patient denies any weakness. Patient denies any slurred speech. Patient admits to a mild headache. Patient denies any chest pain. Patient denies any nausea or vomiting at this time. Patient states he gets intermittent nausea from his M?ni?re's disease. [facility] Medical History Hiatal hernia Osteoporosis DVT (deep venous thrombosis) Migraines Osteoarthritis High triglycerides History of blood clots Seasonal allergies History of DVT (deep vein thrombosis) Wears glasses High cholesterol Gastric reflux Non-smoker Cardiology follow-up encounter History of Holter monitoring History of echocardiogram History of stress test Asthma Hyperlipidemia GERD (gastroesophageal reflux disease) Insomnia Obesity Home Medications ?Medication ?Instructions ?Recorded ?Last Taken ?Type montelukast 10 mg tablet 10 mg PO DAILY PRN allergies 09/27/22 Unknown History (Singulair) azelastine 205.5 mcg (0.15 %) 1 spray intranasal BID PRN 12/19/22 Unknown History nasal spray allergies loratadine 10 mg tablet 10 mg PO DAILY PRN allergies 02/14/23 Unknown History multivitamin with minerals-folic 1 tab PO MOWEFR supplement 02/14/23 07/12/25 History acid 12 mcg chewable tablet (Centrum Adults) famotidine 20 mg tablet 20 mg PO DAILY PRN gerd 03/14/23 07/11/25 History aspirin 81 mg tablet 81 mg PO QDAY 05/24/25 07/13/25 History clopidogrel 75 mg tablet 75 mg PO QDAY 05/24/25 07/13/25 History ezetimibe 10 mg tablet 10 mg PO QHS 05/24/25 07/13/25 History meclizine 25 mg tablet 12.5 mg (1/2 x 25 mg) PO BID PRN 05/24/25 Unknown Rx dizziness #30 tabs rosuvastatin 20 mg tablet 20 mg PO QDAY 05/24/25 07/13/25 History Allergy/AdvReac Type Severity Reaction Status Date / Time Milk Containing Products Allergy throat Verified 07/14/25 07:47 (Dairy) tightens escitalopram (From Lexapro) AdvReac suicidal Verified 07/14/25 07:47 ideation Family History (Updated 07/14/25 @ 11:[address] Ger Kimbrough DO) Sister Diabetes Cancer Mother Diabetes Arthritis Heart disease Father Hypertension Arthritis Colon cancer High cholesterol CVA (cerebral vascular accident) Brother Kidney disease Surgical History H/O heart artery stent History of foot surgery Hx of arthroscopy of shoulder History of cholecystectomy right finger cyst excision H/O arthroscopy of shoulder Social History household members: spouse Smoking Status: Never smoker second hand exposure: No alcohol intake: current substance use type: does not use what type of physical activity do you participate in: walking and other frequency: 3-4 times per week ne/jehovah's witness: Oriental [employer] seatbelt use: always ROS ROS ED Constitutional Constitutional ED: Denies chills or fever(s) Eyes Eyes: Reports change in vision; Denies blurry vision ENT ENT ED: Denies rhinorrhea or sore throat Cardiovascular Cardiovascular: Denies chest pain or palpitations Respiratory/Chest Respiratory/Chest: Denies cough or dyspnea Gastrointestinal Gastrointestinal: Denies nausea or vomiting Genitourinary Genitourinary ED: Denies dysuria or hematuria Musculoskeletal Musculoskeletal: Denies back pain or neck pain Integumentary Denies abscess or rash Neurologic Neurologic: Reports headache(s) and paresthesias LUE; Denies weakness Allergic/Immunologic Allergic/Immunologic ED: Denies mouth swelling or urticaria EXAM Physical Exam Const Vital Signs: 07/14/25 07:42 07/14/25 07:46 07/14/25 07:54 Temperature 98.2 F 98.2 F Temperature Source Oral Oral Pulse Rate 99 78 Respiratory Rate 18 18 Blood Pressure 155/78 H 155/78 H Blood Pressure Mean 103 103 Pulse Ox 100 100 Oxygen Delivery Method Room Air Room Air Room Air 07/14/25 07:54 07/14/25 08:24 07/14/25 08:30 Temperature 98.2 F Temperature Source Oral Pulse Rate 78 99 94 Respiratory Rate 18 14 13 Blood Pressure 155/78 H 152/92 H 142/84 H Blood Pressure Mean 103 112 103 Pulse Ox 100 98 97 Oxygen Delivery Method Room Air Room Air Room Air 07/14/25 09:00 07/14/25 09:30 07/14/25 10:00 Temperature Temperature Source Pulse Rate 86 80 88 Respiratory Rate 16 12 Blood Pressure 136/81 H 125/81 H 125/81 H Blood Pressure Mean 99 95 95 Pulse Ox 97 Oxygen Delivery Method Positive well nourished and well developed Constitutional Narrative: BMI is 31.5. General Appearance ED: well developed and NAD HEENT Reports moist mucous membranes Eyes PERRL and EOMs intact bilaterally Eyes Narrative: Funduscopic examination was benign bilaterally. Neck supple and no JVD Resp normal respiratory effort and clear to auscultation bilaterally Cardio Rate: regular rate Rhythm: regular rhythm GI soft to palpation, non-tender and non-distended Extremity normal to inspection General Extremety ED: Negative for edema or tenderness General Extremity: Negative for edema Neuro oriented x3 and CN's II-XII intact bilaterally Neuro Narrative: There is decreased sensation to light touch in the left forearm. Sensation was intact to light touch in the upper arms and lower extremities bilaterally. [place] Coma Scale: document GCS findings Spontaneous Obeys Commands Oriented 15 Sensorium / Orientation: alert Motor Exam: strength 5/5 throughout Psych mental status grossly normal MDM MDM MDM Narrative Medical decision making narrative: Stroke team was activated in triage. Patient was evaluated there. Stroke order set was used. CT scan of the brain will be obtained to assess for intracranial bleeding and stroke. CTA of the head and neck will be obtained to assess for large vessel occlusion and carotid and vertebral stenosis. Chest x-ray will be obtained to assess for pneumonia or bronchitis. EKG will be obtained to assess for cardiac dysrhythmia and cardiac ischemia. CBC will be obtained to assess for leukocytosis and anemia. Basic metabolic profile will be obtained to assess for electrolyte abnormality and renal function. PT with INR and PTT will be obtained to assess for coagulopathy. High-sensitivity troponin will be obtained to assess for cardiac ischemia. 2-hour repeat high-sensitivity troponin will be obtained to assess for ongoing cardiac ischemia. Lab Data Attestation: I reviewed the patient's lab results. Lab results narrative: CBC was reviewed and was within normal limits. PTT was reviewed and was slightly elevated at 172. Basic metabolic profile was reviewed. Glucose was elevated at 188. The remainder is within normal limits. Initial high-sensitivity troponin was reviewed and was less than 6. PT with INR and PTT were reviewed and were within normal limits. 2-hour repeat high-sensitivity troponin was reviewed and was 6. Labs: Laboratory Results - last 24 hr 07/14/25 07/14/25 07/14/25 07:50 08:00 10:05 WBC 4.8 RBC 4.75 Hgb 13.8 Hct 41.8 MCV 88.0 MCH 29.1 MCHC 33.0 RDW Std Deviation 44.5 H RDW Coeff of Rei 13.9 Plt Count 187 MPV 9.2 Immature Gran % (Auto) 0.600 Neut % (Auto) 43.1 L Lymph % (Auto) 44.4 H Eddy % (Auto) 7.2 Eos % (Auto) 3.6 Baso % (Auto) 1.1 H Absolute Neuts (auto) 2.1 Absolute Lymphs (auto) 2.11 Nucleated RBC % 0 PT 12.9 INR 1.0 APTT 23.7 L Sodium 139 Potassium 3.8 Chloride 104 Carbon Dioxide 23.5 Anion Gap 12 BUN 16 Creatinine 0.93 Estim Creat Clear Calc 147.36 Est GFR (MDRD) Non-Af 92 BUN/Creatinine Ratio 17.4 Glucose 188 H Calcium 8.6 Troponin T High Sens < 6 Troponin T Hi Sens 2 Hr 6 POC Glucose 172 H Radiography Chest X-Ray - ED: 1 View, Read by ED Physician, Read by Radiologist and No Acute Disease Diagnostic Testing: Clinical Impression(s) from Imaging Studies Brain CT 07/14/25 07:54 IMPRESSION: Bilateral ethmoid sinus disease is noted. Mucosal thickening is visible in the right aspect of the sphenoid sinus. No acute intracranial pathology. Reading Location: [facility] Chest X-Ray 07/14/25 07:55 IMPRESSION: No acute process is identified in the chest. Reading Location: [facility] Head/Neck CTA 07/14/25 07:55 IMPRESSION: There is heavily calcified plaque is noted in the intracranial portion of the right and left ICA in the carotid siphon, which partly obscures the lumen with no evidence of occlusion. Reading Location: [facility] CT scan of the brain was obtained. There is no acute intracranial abnormality. There is bilateral ethmoid sinus disease noted. There is mucosal thickening in the right aspect of the sphenoid sinus. This was interpreted by the radiologist and was also independently reviewed by myself. CTA of the head and neck was obtained. There are calcified plaques in the intracranial portion of the right and left internal carotid arteries but there is no evidence of occlusion. This was interpreted by the radiologist and was also independently reviewed by myself. Portable 1 view chest x-ray was obtained. On my independent interpretation, lung jack are clear. There is normal cardiac silhouette. Bony thorax is normal. There is no acute process noted. Radiologist also interpreted the x-ray and agrees. EKG Initial EKG: Attestation: I personally reviewed and interpreted this EKG as follows: Interpretation: Sinus Rhythm (88) and No Acute Injury Pattern Comments: EKG was obtained. On my independent interpretation, it showed a normal sinus rhythm with a rate of 88. CA interval, QRS interval, and QTc intervals were all normal. Gustine was normal. There are no acute ST or T wave changes. Prior EKG tracings: available for review Prior: Unchanged (03/26/2025) Management Discussion w/another healthcare provider: Hospitalist and Clinical Science Liaison (Dr. De Luna, stroke neurologist [facility]) Treatment and Re-Evaluation Narrative: Patient was evaluated by stroke neurology [facility]. Patient is not a candidate for tenecteplase due to the low NIH stroke scale score. Stroke neurologist recommended further evaluation with MRI. Case was discussed with the hospitalist. Discharge Plan Dx/Rx/DC Orders Clinical Impression: Arm paresthesia, left, Visual disturbance, Hyperglycemia Disposition Disposition: Acute Care Hospital [facility] Discharge Date/Time: 07/14/25 11:40 NIHSS NIHSS 1a. Level of Consciousness: 0 - Alert; keenly responsive 1b. LOC Questions: 0 - Answers BOTH questions correctly 1c. LOC Commands: 0 - Performs BOTH tasks correctly 2. Best Gaze: 0 - Normal 4. Facial Palsy: 0 - Normal symmetrical movements 5a. Left Arm: 0 - No drift; arm holds 90 (or 45) degrees for full 10 seconds 5b. Right Arm: 0 - No drift; arm holds 90 (or 45) degrees for full 10 seconds 6a. Left Le - No drift; leg holds 30-degree position for full 5 seconds 6b. Right Le - No drift; leg holds 30-degree position for full 5 seconds 8. Sensory: 1 - Vgon-jr-kqoypjst sensory loss; 9. Best Language: 0 - No aphasia; normal 10. Dysarthria: 0 - Normal 11. Extinction and Inattention: 0 - No abnormality Total: 1 Stroke Questions Stroke Team Activated: Yes Reviewed Inclusion/Exclusion criteria: Yes IV Thrombolytic Administered: No No contraindications from thrombolytic administration: No
[2025-07-14 08:29] LABS: Prothrombin Time (Protime)PT. 12.9 SECONDS (11.7-14.9)
[2025-07-14 08:30] LABS: Partial Thromboplast Time 23.7 Seconds (24.1-36.2)
[2025-07-14 08:33] LABS: Hematocrit 41.8 % (40-54); Hemoglobin 13.8 g/dL (13.0-16.5); Immature Granulocytes Count 0.030 X10^3/uL (0.0-0.0); Mean Corp Hgb Conc 33.0 g/dL (32-36); Mean Corpuscular Volume 88.0 fL (80-94); Mean Platelet Vol. 9.2 fl (6.2-12.0); NRBC Flagged by Analyzer 0 % (0-5); Platelet Count 187 K/mm3 (150-450); RBC Distribution Width CV 13.9 % (11.6-14.6); RBC Distribution Width SD 44.5 fl (35.1-43.9); Red Blood Count 4.75 M/mm3 (4.6-6.2); White Blood Count 4.8 K/mm3 (4.4-11.0)
[2025-07-14 08:47] LABS: Anion Gap 12 (5-15); BUN 16 mg/dL (4-19); BUN/Creat Ratio 17.4 RATIO (10-20); Calcium,Total 8.6 mg/dL (7.6-11.0); Carbon Dioxide 23.5 mmol/L (21.0-32.0); Chloride 104 mmol/L (98-108); Estimated Creatinine Clearance 147.36 ml/min (50-250); Glucose 188 mg/dL (70-99); Potassium 3.8 mmol/L (3.3-5.1); Troponin T High Sensitivity < 6 ng/L (<=22)
[2025-07-14 10:42] LABS: Troponin T High Sens 2 HR 6 ng/L (<=22)
--- NOTE | 2025-07-14 11:10 | MRI_ITS ---
PROCEDURE: BRAIN WITHOUT CONTRAST 07/14/2025 REASON FOR EXAM: LEFT SIDE PARESTHESIA TECHNIQUE: Procedure Code: MRIBR Modality: MR Procedure: BRAIN WITHOUT CONTRAST Multiplanar and multisequence images were obtained. COMPARISON: Earlier today's CT. FINDINGS: Diffusion-weighted images:Negative. ADC map: Negative. Gradient images: Negative. Cerebrum: Mild loss of cerebral volume. Negative for mass the frontal, parietal, temporal and occipital lobes negative. White matter: Negative for periventricular white matter changes. Negative for T2 lesions in the centrum semiovale. Cerebellum: Negative cerebellum. CSF pathways and ventricles: Negative. Negative for ventricular dilatation or obstruction. Basal ganglia and thalami: Negative. No acute infarctions. Brainstem: Midbrain, itz and medulla negative. Midline structures: The corpus callosum, pituitary fossa and cerebellar tonsils are negative. Limbic system: Medial temporal lobes and limbic system negative. Extra-axial spaces: Negative. Negative for subarachnoid, subdural or epidural hemorrhage. Orbital structures: Globes negative. Extraocular muscles negative. Paranasal sinuses: Mucosal disease in the ethmoid sinuses. Lesser mucosal disease in the maxillary and frontal sinuses. Remainder of the sinuses negative. Vascular structures: Normal intracranial flow voids including the superior sagittal sinus. Other: No abnormal enhancement. Remainder of exam negative. MRI/Brain without Contrast IMPRESSION: Negative MR of the brain. Negative for acute intracranial pathology. Diffuse paranasal sinus disease Reading Location: [place] [id number]
--- NOTE | 2025-07-14 11:42 | HP.PCM.HOS_ITS ---
HPI - General General Date of Admission: 07/14/25 Date of Service: 07/14/25 Chief Complaint: paresthesia. HPI Narrative COLIN PENN, is a 65 M who presents LUE paresthesia. When he got up today he had noticed visual changes and he was unclear if it was in 1 eye or both eyes but resolved just spark pattern that led to a more of a generalized spreading light across his visual field. There was no zigzags or lightning bolts. He did not experience any headaches but that afterwards he experienced left-sided paresthesias. Patient has a M?ni?re's disease and notes that he just feels off and has had this since 2019 when he had COVID at that time. Presented emergency room and underwent a workup that was unremarkable. Symptoms are improving though he does complain of paresthesias in both arms at this time but no weakness in his arms. [facility] Medical History Hiatal hernia Osteoporosis DVT (deep venous thrombosis) Migraines Osteoarthritis High triglycerides History of blood clots Seasonal allergies History of DVT (deep vein thrombosis) Wears glasses High cholesterol Gastric reflux Non-smoker Cardiology follow-up encounter History of Holter monitoring History of echocardiogram History of stress test Asthma Hyperlipidemia GERD (gastroesophageal reflux disease) Insomnia Obesity Home Medications ?Medication ?Instructions ?Recorded ?Last Taken ?Type montelukast 10 mg tablet 10 mg PO DAILY PRN allergies 09/27/22 Unknown History (Singulair) azelastine 205.5 mcg (0.15 %) 1 spray intranasal BID P RN 12/19/22 Unknown History nasal spray allergies loratadine 10 mg tablet 10 mg PO DAILY 02/14/23 Unkn own History multivitamin with minerals-folic 1 tab PO DAILY Unknown History acid 12 mcg chewable tablet (Centrum Adults) famotidine 20 mg tablet 20 mg PO DAILY 03/14/23 Unkn own History aspirin 81 mg tablet 81 mg PO QDAY 05/24/25 Unkno wn History clopidogrel 75 mg tablet 75 mg PO QDAY 05/24/25 Unkno wn History ezetimibe 10 mg tablet 10 mg PO QDAY 05/24/25 Unkno wn History meclizine 25 mg tablet 12.5 mg (1/2 x 25 mg) PO BID PRN 05/24/25 Unknown Rx dizziness #30 tabs rosuvastatin 20 mg tablet 20 mg PO QDAY 05/24/25 Unkno wn History modafinil 100 mg tablet 100 mg PO BID 07/14/25 Unkno wn History Allergy/AdvReac Type Severity Reaction Status Date / Time Milk Containing Products Allergy throat Verified 07/14/25 07:47 (Dairy) tightens escitalopram (From Lexapro) AdvReac suicidal Verified 07/14/25 07:47 ideation Family History (Updated 07/14/25 @ 11:[address] Ger Kimbrough DO) Sister Diabetes Cancer Mother Diabetes Arthritis Heart disease Father Hypertension Arthritis Colon cancer High cholesterol CVA (cerebral vascular accident) Brother Kidney disease Surgical History H/O heart artery stent History of foot surgery Hx of arthroscopy of shoulder History of cholecystectomy right finger cyst excision H/O arthroscopy of shoulder Social History household members: spouse Smoking Status: Never smoker second hand exposure: No alcohol intake: current substance use type: does not use what type of physical activity do you participate in: walking and other frequency: 3-4 times per week ne/methodist: Taoist seatbelt use: always ROS ROS Narrative All review of systems were negative except as mentioned above in the history of present illness and the other review of systems. Vital Signs Vital Signs Vital Signs: 07/14/25 07:42 07/14/25 07:46 07/14/25 07:54 Temperature 36.8 C 36.8 C Temperature Source Oral Oral Pulse Rate 99 78 Respiratory Rate 18 18 Blood Pressure 155/78 H 155/78 H Blood Pressure Mean 103 103 Pulse Ox 100 100 Oxygen Delivery Method Room Air Room Air Room Air 07/14/25 07:54 07/14/25 08:24 07/14/25 08:30 Temperature 36.8 C Temperature Source Oral Pulse Rate 78 99 94 Respiratory Rate 18 14 13 Blood Pressure 155/78 H 152/92 H 142/84 H Blood Pressure Mean 103 112 103 Pulse Ox 100 98 97 Oxygen Delivery Method Room Air Room Air Room Air 07/14/25 09:00 07/14/25 09:30 07/14/25 10:00 Temperature Temperature Source Pulse Rate 86 80 88 Respiratory Rate 16 12 Blood Pressure 136/81 H 125/81 H 125/81 H Blood Pressure Mean 99 95 95 Pulse Ox 97 Oxygen Delivery Method 07/14/25 11:30 07/14/25 11:35 Temperature 36.6 C Temperature Source Pulse Rate 81 74 Respiratory Rate 16 Blood Pressure 142/79 H 142/91 H Blood Pressure Mean 100 108 Pulse Ox 100 Oxygen Delivery Method Weight Weight: 219.4 kg Body Mass Index (BMI) 69.4 Physical Exam Const alert, no apparent distress and average body habitus HEENT normocephalic, head/scalp atraumatic, hearing grossly normal bilaterally, moist oral mucous membranes, oropharynx normal and dentition normal Eyes PERRL Eyes Narrative: Bilateral nystagmus. With tracking, his eyes do become disconjugate with lateral gaze. Resp normal respiratory effort and no retractions GI normal to inspection, nondistended, normoactive bowel sounds and soft to palpation Extremity normal to inspection and full ROM Neuro oriented x3, CN's II-XII intact bilaterally, moves all extremities and no focal motor deficits Sensorium / Orientation: awake and alert Coordination / Balance: [id number]-ju-[id number] test normal and [id number] test normal Speech: speech normal Motor Exam: strength 5/5 throughout Psych affect normal Results Lab / Micro Data 07/14/25 08:00 07/14/25 08:00 Labs: Laboratory Results - last 24 hr 07/14/25 07:50: POC Glucose 172 H 07/14/25 08:00: WBC 4.8, RBC 4.75, Hgb 13.8, Hct 41.8, MCV 88.0, MCH 29.1, MCHC 33.0, RDW Std Deviation 44.5 H, RDW Coeff of Rei 13.9, Plt Count 187, MPV 9.2, Immature Gran % (Auto) 0.600, Neut % (Auto) 43.1 L, Lymph % (Auto) 44.4 H, Sibley % (Auto) 7.2, Eos % (Auto) 3.6, Baso % (Auto) 1.1 H, Absolute Neuts (auto) 2.1, Absolute Lymphs (auto) 2.11, Nucleated RBC % 0, PT 12.9, INR 1.0, APTT 23.7 L, Sodium 139, Potassium 3.8, Chloride 104, Carbon Dioxide 23.5, Anion Gap 12, BUN 16, Creatinine 0.93, Estim Creat Clear Calc 147.36, Est GFR (MDRD) Non-Af 92, BUN/Creatinine Ratio 17.4, Glucose 188 H, Calcium 8.6, Troponin T High Sens < 6 07/14/25 10:05: Troponin T Hi Sens 2 Hr 6 Imaging Radiology Impression Brain CT 07/14/25 07:54 IMPRESSION: Bilateral ethmoid sinus disease is noted. Mucosal thickening is visible in the right aspect of the sphenoid sinus. No acute intracranial pathology. Reading Location: [facility] Chest X-Ray 07/14/25 07:55 IMPRESSION: No acute process is identified in the chest. Reading Location: [facility] Head/Neck CTA 07/14/25 07:55 IMPRESSION: There is heavily calcified plaque is noted in the intracranial portion of the right and left ICA in the carotid siphon, which partly obscures the lumen with no evidence of occlusion. Reading Location: [facility] Assessment & Plan Assessment/Plan (1) Paresthesias: PLAN: Resolving. Began the lout but now bilateral about sensation is grossly intact. Concern is for stroke or atypical migraine though the patient is not having any headache. Check MRI of the brain, echocardiogram. (2) Visual disturbance: PLAN: Unclear etiology. Sounded like he was having scotoma for migraine but he did not have any headache. So that does not rule out migraine. Patient does have a history of migraines that actually went away when he had COVID. (3) Dysconjugate gaze: PLAN: Patient has been complaining of symptoms that has been diagnosed with M?ni?re's disease but he does have disconjugate gaze with lateral eye tracking. Is unclear if this is what is causing his symptoms but I told the patient that may be something to consider patching one of his eyes to see if that helps when he is getting up about. Will stay with the MRI shows to be a shows any evidence of any stroke but if he is continuing to have the symptoms it may be advisable for him to follow-up with ophthalmology. From a sounds like and his eye exams he has done well but with this, disconjugate gaze trigger if it is more of a chronic and causing him symptoms it is unclear if he would benefit from going to a tertiary facility for myotomy procedures. PLAN: Plan M?ni?re's disease: Follow-up with neurology. VTE prophylaxis: Low risk observation status. Not indicated. CODE STATUS: Addressed with the patient. Patient wishes to be full code. Charges/Coding Visit Charges Inpatient E&M: 01852 Init Hosp L3
--- NOTE | 2025-07-14 11:56 | ECHOD_ITS ---
Reason For Study Reason For Study: TIA/CVA Procedure This was a 2D Doppler, Color Flow transthoracic echocardiogram. Exam performed portable in patient room. Left Ventricle Normal size and thickness. The left ventricular ejection fraction is 65 %. No evidence for diastolic dysfunction. Right Ventricle Normal right ventricle. Atria The left and right atria are normal. Bubble contrast study is negative for PFO/ASD. Mitral Valve Trivial mitral valve insufficiency. Tricuspid Valve Trivial tricuspid valve insufficiency. Normal pulmonary artery pressure. Aortic Valve Mild focal calcification of the aortic valve leaflets. Aortic valve sclerosis without stenosis. Trivial aortic valve regurgitation. Pulmonic Valve The pulmonic valve is not well visualized. Great Vessels Normal sized aortic root. Pericardium/Pleural No pericardial effusion. Medication Performed a rapid injection of agitated mix of 9 cc saline and 1cc air to assess for atrial septal defect. MMode/2D Measurements & Calculations LVIDd: 4.6 cm IVSd: 1.0 cm Ao root diam: 3.3 cm LVIDs: 3.0 cm LVPWd: 1.0 cm RVDd: 3.5 cm FS: 33.5 % LAV(MOD-bp): 58.7 ml LVAd ap4: 28.8 cm2 LVAd ap2: 28.1 cm2 LAV(MOD-bp) Indexed: 27.1 ml/m2 LVLd ap4: 8.5 cm LVLd ap2: 8.5 cm LAV(MOD-sp2): 56.2 ml EDV(MOD-sp4): 80.0 ml EDV(MOD-sp2): 78.1 ml LAV(MOD-sp4): 60.9 ml EDV(sp4-el): 82.4 ml EDV(sp2-el): 78.9 ml LVAs ap4: 15.3 cm2 LVAs ap2: 14.6 cm2 LVLs ap4: 6.7 cm LVLs ap2: 6.8 cm ESV(MOD-sp4): 31.8 ml ESV(MOD-sp2): 27.7 ml ESV(sp4-el): 29.9 ml ESV(sp2-el): 26.5 ml EF(MOD-sp4): 60.3 % EF(MOD-sp2): 64.6 % EF(sp4-el): 63.7 % SV(MOD-sp4): 48.2 ml SV(MOD-sp2): 50.4 ml SV(sp4-el): 52.5 ml SI(MOD-sp4): 22.2 ml/m2 SI(MOD-sp2): 23.2 ml/m2 LA A4 area: 20.3 cm2 LA dimension(2D): 4.1 cm RA A4 area: 18.6 cm2 TAPSE: 2.8 cm Time Measurements MV dec time: 0.18 sec Doppler Measurements & Calculations MV E max dhaval: 57.9 cm/sec Lat Peak E' Dhaval: 11.3 cm/sec Med Peak E' Dhaval: 10.9 cm/sec MV A max dhaval: 71.5 cm/sec E/E' lat: 5.1 E/E' med: 5.3 MV E/A: 0.81 Ao V2 max: 151.1 cm/sec LV V1 max: 97.2 cm/sec PA V2 max: 135.4 cm/sec Ao max P.1 mmHg LV V1 max P.8 mmHg Ao V2 mean: 112.0 cm/sec LV V1 mean P.0 mmHg Ao mean P.4 mmHg LV V1 mean: 67.4 cm/sec Ao V2 VTI: 28.5 cm LV V1 VTI: 19.2 cm AV (velocity ratio): 0.67 TR max dhaval: 261.4 cm/sec TR max P.4 mmHg ECHO/Echo Complete Interpretation Summary The left ventricular ejection fraction is 65 %. No evidence for diastolic dysfunction. Bubble contrast study is negative for PFO/ASD. Mild focal calcification of the aortic valve leaflets. Aortic valve sclerosis w ithout stenosis. Trivial aortic valve regurgitation. Ordering Physician: Ger Kimbrough Referring Physician: Wily Carlton Performed By: Raegan Santos, MAYNOR, RVT
[2025-07-14 14:16] LABS: Troponin T High Sens 4 HR < 6 ng/L (<=22)
--- NOTE | 2025-07-14 16:11 | PCM.DC.SUM ---
Providers Date of Admission: 07/14/25 Primary Care Physician: Dr. Wily Carlton, DO Consultations 07/14/25 11:56 Consult: Tele-Neurology Routine Consulting Provider: [facility] Reason for Consult: Acute Ischemic Stroke/TIA EMERGENT Consult: No MD Notified: Yes Date Notified: 07/14/25 Time Notified: 11:08 Method of Notification: ED Physician Initiated Nursing Unit Staff Notify [facility] of Tele-Neurology Consult: Yes Reason For Visit: LEFT SIDED PARATHESIAS Diagnosis Discharge Diagnosis (1) Paresthesias: Status: Acute Code(s): R20.2 - Paresthesia of skin Plan: Resolvied. Began the lout but now bilateral about sensation is grossly intact. Concern is for stroke or atypical migraine though the patient is not having any headache. MRI of the brain was negative. Patient had some visual disturbances that would sound like scotoma of a migraine but patient did not have a headache. Though he does have a history of migraines. 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 (2) Visual disturbance: Status: Acute Code(s): H53.9 - Unspecified visual disturbance Plan: Unclear etiology. Sounded like he was having scotoma for migraine but he did not have any headache. So that does not rule out migraine. Patient does have a history of migraines that actually went away when he had COVID. (3) Dysconjugate gaze: Status: Acute Code(s): H51.8 - Other specified disorders of binocular movement Plan: Patient has been complaining of symptoms that has been diagnosed with M?ni?re's disease but he does have disconjugate gaze with lateral eye tracking. Is unclear if this is what is causing his symptoms but I told the patient that may be something to consider patching one of his eyes to see if that helps when he is getting up about. Will stay with the MRI shows to be a shows any evidence of any stroke but if he is continuing to have the symptoms it may be advisable for him to follow-up with ophthalmology. From a sounds like and his eye exams he has done well but with this, disconjugate gaze trigger if it is more of a chronic and causing him symptoms it is unclear if he would benefit from going to a tertiary facility for myotomy procedures. Recommended patient patch 1 eye when he is at home to see if that would help some of his symptoms he just feeling unbalanced. Plan M?ni?re's disease: Follow-up with neurology. VTE prophylaxis: Low risk observation status. Not indicated. CODE STATUS: Addressed with the patient. Patient wishes to be full code. Medications at Discharge Home Medications montelukast 10 mg tablet (Singulair) 10 mg PO DAILY PRN allergies 09/27/22 azelastine 205.5 mcg (0.15 %) nasal spray 1 spray intranasal BID PRN allergies 12/19/22 loratadine 10 mg tablet 10 mg PO DAILY PRN allergies 02/14/23 multivitamin with minerals-folic acid 12 mcg chewable tablet (Centrum Adults) 1 tab PO MOWEFR supplement 02/14/23 famotidine 20 mg tablet 20 mg PO DAILY PRN gerd 03/14/23 aspirin 81 mg tablet 81 mg PO QDAY 05/24/25 clopidogrel 75 mg tablet 75 mg PO QDAY 05/24/25 ezetimibe 10 mg tablet 10 mg PO QHS 05/24/25 meclizine 25 mg tablet 12.5 mg (1/2 x 25 mg) PO BID PRN dizziness #30 tabs 05/24/25 rosuvastatin 20 mg tablet 20 mg PO QDAY 05/24/25 Hospital Course Operations None Procedures 2-D Echocardiogram Summary of Care Provided Minutes Spent on Discharge: 60 Hospital Course: This is a 65-year-old male who presents with paresthesias initially in his left upper extremity and then both upper extremities. Had no weakness. He underwent a stroke workup with a head CT CTA of the head neck and MRI of the brain that were negative. On exam, was noted that he had a disconjugate gaze with tracking. He was able to move his eyes up bilaterally but when tracking, his eyes were disconjugate. Unclear if this is an acute issue or chronic. Patient has noted feeling off for about a year which he is seeing neurology and has been diagnosed with M?ni?re's disease. Is unclear if this is chronic and that he has adapted to it because he does not have diplopia. 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 Additionally with that, recommend he follow-up with his neurologist see if he would need referral to a more specialized neurologist for evaluation if he has some cranial nerve issues. Weight / BMI Weight Weight: 99.5 kg Body Mass Index (BMI) 31.4 ABG / Lab / Microbiology Data 07/14/25 08:00 07/14/25 08:00 Laboratory: Laboratory Results - last 24 hr 07/14/25 07:50: POC Glucose 172 H 07/14/25 08:00: WBC 4.8, RBC 4.75, Hgb 13.8, Hct 41.8, MCV 88.0, MCH 29.1, MCHC 33.0, RDW Std Deviation 44.5 H, RDW Coeff of Rei 13.9, Plt Count 187, MPV 9.2, Immature Gran % (Auto) 0.600, Neut % (Auto) 43.1 L, Lymph % (Auto) 44.4 H, [place] % (Auto) 7.2, Eos % (Auto) 3.6, Baso % (Auto) 1.1 H, Absolute Neuts (auto) 2.1, Absolute Lymphs (auto) 2.11, Nucleated RBC % 0, PT 12.9, INR 1.0, APTT 23.7 L, Sodium 139, Potassium 3.8, Chloride 104, Carbon Dioxide 23.5, Anion Gap 12, BUN 16, Creatinine 0.93, Estim Creat Clear Calc 147.36, Est GFR (MDRD) Non-Af 92, BUN/Creatinine Ratio 17.4, Glucose 188 H, Calcium 8.6, Troponin T High Sens < 6 07/14/25 10:05: Troponin T Hi Sens 2 Hr 6 07/14/25 12:48: Troponin T Hi Sens 4Hr < 6 Radiography Diagnostic Testing: Radiology Impression Brain CT 07/14/25 07:54 IMPRESSION: Bilateral ethmoid sinus disease is noted. Mucosal thickening is visible in the right aspect of the sphenoid sinus. No acute intracranial pathology. Reading Location: [facility] Chest X-Ray 07/14/25 07:55 IMPRESSION: No acute process is identified in the chest. Reading Location: [facility] Head/Neck CTA 07/14/25 07:55 IMPRESSION: There is heavily calcified plaque is noted in the intracranial portion of the right and left ICA in the carotid siphon, which partly obscures the lumen with no evidence of occlusion. [facility] Brain MRI 07/14/25 11:10 IMPRESSION: Negative MR of the brain. Negative for acute intracranial pathology. Diffuse paranasal sinus disease Reading Location: [id number] Echocardiogram 07/14/25 11:56 Interpretation Summary The left ventricular ejection fraction is 65 %. No evidence for diastolic dysfunction. Bubble contrast study is negative for PFO/ASD. Mild focal calcification of the aortic valve leaflets. Aortic valve sclerosis without stenosis. Trivial aortic valve regurgitation. Ordering Physician: Ger Kimbrough Referring Physician: Wily Carlton Performed By: Raegan Santos, MAYNOR, RVT D/C Instructions DC O2, CPAP, BIPAP Needs Home O2 Discharge instructions: No Meaningful Use Info Meaningful Use Meaningful Use Diagnoses (Choose all that apply): None applicable Discharge Plan Admission Admit Date/Time: 07/14/25 11:05 Primary Reason for Your Visit: Paresthesias Attending Provider: Ger Kimbrough Primary Care Provider: Wily Carlton Consulting Providers: Angelito Trinidad; Valeriy Kirk; Susana Mireles; Betzaida Lee; Jemma Wilson; Miles De Luna; Hanna Taylor; Ramesh Chacon; Luis Manuel Amezquita; Alex Olmedo; Ramonita Arguello; Khushboo Etienne; Adrian London; Zelda Carranza; Chele Montalvo; Abad Hackett; Tavon Boateng; Dorinda Stockton; Rodolfo Urrutia; Emma Ramos; Babatunde Caceres Instructions Additional Instructions / Restrictions: As we discussed, you had these visual changes and then this numbness in your arm which your workup here was negative for any stroke. Suspect it may be a an atypical migraine though he did not have a headache. If this happens again, notify your physician or return to the emergency room. As we discussed also, your vision when you track to the sides is disconjugate (out of sync) and is unclear if this is because your symptoms are just feeling off but I do recommend that you try wearing a patch during the day when you are at home on 1 eye to see if that helps. Tried changing and is well from eye to eye from 1 day to the next to see if you have any benefits from that. If after several days you have not noticed any changes, then you can stop patching. You do not need the patch if you go out to the house for anything. Please follow-up with your neurologist as well as your livestock yard supervisor to see if they have any additional input or if they feel that you may need referrals elsewhere. Discharge Orders/Prescriptions Prescriptions: Continued azelastine 205.5 mcg (0.15 %) spray,non-aerosol 1 spray INTRANASAL BID PRN (Reason: allergies) montelukast [Singulair] 10 mg tablet 10 mg PO DAILY PRN (Reason: allergies) rosuvastatin 20 mg tablet 20 mg PO QDAY aspirin 81 mg tablet 81 mg PO QDAY clopidogrel 75 mg tablet 75 mg PO QDAY ezetimibe 10 mg tablet 10 mg PO QHS meclizine 25 mg tablet 12.5 mg PO BID PRN (Reason: dizziness) Qty: 30 4RF loratadine 10 mg tablet 10 mg PO DAILY PRN (Reason: allergies) Patient Comments: take 1 tablet by mouth once daily Centrum Adults 12 mcg Tablet,Chewable 1 tab PO MOWEFR famotidine 20 mg Tablet 20 mg PO DAILY PRN (Reason: gerd) Discontinued modafinil 100 mg tablet 100 mg PO BID Referrals / Follow Up: [facility] [Provider Group] - Within 1 Month Rc Estes MD [Non-Staff -Ordering Privileges, Neurology] - 08/23/25 2:00 pm Wily Carlton DO [Primary Care Provider, Medical] - Within 2 Weeks Disposition Disposition (needs filled in before D/C Order can be placed): Home, Self Care
--- NOTE | 2025-07-14 16:24 | PHA.DC.MR.R ---
Pharmacy [place] Med Reconciliation Pharmacy Service has performed discharge medication reconciliation for this patient. The patient's discharge medication list was reviewed for discrepancies and discrepancies were resolved. Medications at Discharge Home Medications montelukast 10 mg tablet (Singulair) 10 mg PO DAILY PRN allergies 09/27/22 azelastine 205.5 mcg (0.15 %) nasal spray 1 spray intranasal BID PRN allergies 12/19/22 loratadine 10 mg tablet 10 mg PO DAILY PRN allergies 02/14/23 multivitamin with minerals-folic acid 12 mcg chewable tablet (Centrum Adults) 1 tab PO MOWEFR supplement 02/14/23 famotidine 20 mg tablet 20 mg PO DAILY PRN gerd 03/14/23 aspirin 81 mg tablet 81 mg PO QDAY 05/24/25 clopidogrel 75 mg tablet 75 mg PO QDAY 05/24/25 ezetimibe 10 mg tablet 10 mg PO QHS 05/24/25 meclizine 25 mg tablet 12.5 mg (1/2 x 25 mg) PO BID PRN dizziness #30 tabs 05/24/25 rosuvastatin 20 mg tablet 20 mg PO QDAY 05/24/25
== END 2025-07-14 17:21 | disposition home or self-care (01) ==
LOC: ED 11:22 → PCU 11:27
PROVIDERS: Emergency Provider Emergency Medicine
DX: R20.2 Paresthesia of skin (principal); K21.9 Gastro-esophageal reflux disease without esophagitis; H51.8 Other specified disorders of binocular movement; Z79.899 Other long term (current) drug therapy; E78.00 Pure hypercholesterolemia, unspecified; Z79.82 Long term (current) use of aspirin; Z86.718 Personal history of other venous thrombosis and embolism; Z79.02 Long term (current) use of antithrombotics/antiplatelets; R73.9 Hyperglycemia, unspecified; I08.3 Combined rheumatic disorders of mitral, aortic and tricuspid valves; H81.09 Meniere's disease, unspecified ear
CPT/HCPCS: 36415; 70450; 70496; 70498; 70551; 71045; 80048; 82962; 84484; 85025; 85610; 85730; 93005; 93306; 97802; 99221; 99285; Q9957; Q9967; G0378

== ENCOUNTER → 2025-08-19 | Outpatient (CLI) | payer MEDICARE, OTHER, SELFPAY ==
[2025-08-19 13:55] LABS: Cholesterol 128 mg/dL (<=200); Low Density Lipoprotein Calc. 67 mg/dL; Triglycerides 138 mg/dL; Very Low Density Lipoprotein 28 mg/dL (5-40); cholesterol:hdl ratio screen 3.47
== END | disposition home or self-care (01) ==
LOC: LAB 12:10
PROVIDERS: Referring Provider Psychiatry & Neurology Neurology; Visit Provider Psychiatry & Neurology Neurology
DX: E78.5 Hyperlipidemia, unspecified (principal); R73.9 Hyperglycemia, unspecified
CPT/HCPCS: 36415; 80061; 83036

== ENCOUNTER → 2025-09-08 | Outpatient (CLI) | payer MEDICARE, OTHER, SELFPAY ==
--- OUTSIDE RECORDS SUMMARY | 2025-09-08 11:35 | XMS RPT_ITS | CCD ---
Author Organization [facility] Care Team Providers Care Adjunct Professor Name Role Phone COLBY BURNETT DO Primary Care Physician [phone] Dr. Colby Burnett Primary Care Provider Dr. Colby Burnett Referring Provider [phone] Dr. Rc Estes Attending Provider [phone] Dr. John Caputo Attending Provider [phone] Dr. Colby Burnett Primary Care Provider Dr. Colby Burnett Referring Provider [phone] Dr. Rc Estes Attending Provider [phone] Dr. John Caputo Attending Provider [phone] Dr. Rc Estes Referring Provider [phone] Trevor PIÑA, WALTERC Jyoti Attending Provider Dr. Colby Burnett Primary Care Provider Dr. Colby Burnett Referring Provider [phone] Dr. Rc Estes Attending Provider [phone] COLBY BURNETT DO Primary Care Physician ([phone] Dr. Colby Burnett Primary Care Provider Dr. Ramesh Weir Attending Provider Dr. Colby Burnett Primary Care Provider Dr. Colby Burnett Referring Provider [phone] CATHY COPPOLA DO Attending Unavailable COLBY BURNETT DO Primary Care Unavailable COLBY BURNETT DO Attending Unavailable COLBY BURNETT DO Primary Care Unavailable LEX DO, COLBY Attending Unavailable LEX DO, COLBY Primary Care Unavailable JIMMIE ELLIS, DR AIDEE Heard Attending Unavailable LEX DO, COLBY Primary Care Unavailable JIMMIE ELLIS, DR AIDEE Heard Attending Unavailable LEX DO, COLBY Primary Care Unavailable JIMMIE ELLIS, DR AIDEE Heard Attending Unavailable LEX DO, COLBY Primary Care Unavailable ARLENE ELLIS, DR PASCUAL Attending Unavailable LEX DO, COLBY Primary Care Unavailable JIMMIE ELLIS, DR AIDEE Heard Attending Unavailable LEX DO, COLBY Primary Care Unavailable JIMMIE ELLIS, DR AIDEE Heard Attending Unavailable LEX DO, COLBY Primary Care Unavailable JIMMIE ELLIS, DR AIDEE Heard Attending Unavailable LEX DO, COLBY Primary Care Unavailable SANDY KRAFT PA-C Attending Unavailable LEX DO, COLBY Primary Care Unavailable COREY ELLIS, DR WILNER Smith Attending Unavai lable LEX DO, COLBY Primary Care Unavailable TRINIDAD RECONCILER-FUR FLOOR WORKER, MANJU Primary Care Physician Dr. Mitchel Morel DO Emergency Provider [phone] Care Physician, No Primary Primary Care Provider Unavailable DARIANA ELLIS, DR IVAN Admitting Jose Alejandro WESTBROOK MD, DR IVAN Attending Unavai labchase WINTERSTRINIDAD RECONCILER-FUR FLOOR WORKER, MANJU Primary Care Unavai labchase WINTERSTRINIDAD RECONCILER-FUR FLOOR WORKER, MANJU Primary Care Jose Alejandro ARTEAGA HARDWARE TECHNICIAN, VI Attending Unavailable Dr. Mitchel Morel DO Attending Provider [phone] Wily Carlton DO Primary Care Provider [phone] Dr. Wily Carlton DO Referring Provider Dr. Rc Estes MD Attending Provider Dr. Colby Dove MD, V Attending Provider Dr. Colby Dove MD, V Referring Provider WILY CARLTON DO Primary Care Physician Dr. Mitchel Morel DO Attending Physician Dr. Mitchel Morel DO Emergency Department Physic chidi Dr. Wily Carlton DO Primary Care Physician [phone] Dr. Rc Estes MD Attending Physician Meera ELLIS, Dr. Tatum Referring Provider Petty ELLIS, Dr. Colby Smith Attending Physician Dr. Ger Jason DO Emergency Department Physi roula Luis E HARP, Dr. Cyr Admitting Physician Dr. Ger Kimbrough DO Attending Physician Amos ELLIS, Angelito Nurse Practitioner Unavailable Reagan ELLIS, Dr. Crooks Nurse Practitioner Chi ELLIS, Susana Nurse Practitioner Unavailab chase Lee DO, Dr. Huston Nurse Practitioner Katie ELLIS, Dr. Easton Nurse Practitioner Calixto ELLIS, Dr. Aquino Nurse Practitioner Claudia ELLIS, Dr. Ferreira Nurse Practitioner Ines ELLIS, Dr. Chandler Nurse Practitioner Alirio ELLIS, Dr. Issa Nurse Practitioner Honorio ELLIS, Dr. Johnson Nurse Practitioner Jos HARP, Dr. Shipman Nurse Practitioner Jaimie ELLIS, Khushboo Nurse Practitioner Surya ELLIS, Dr. Campbell Nurse Practitioner Dillon ELLIS, Dr. Ndiaye Nurse Practitioner Katia ELLIS, Dr. Elaine Nurse Practitioner Lew ELLIS, Dr. Abad Aquino Nurse Practitioner Kilo ELLIS, Dr. Montes De Oca Nurse Practitioner Kath ELLIS, Dr. Seth Nurse Practitioner Ghada ELLIS, Dr. Reynolds Nurse Practitioner Richard ELLIS, Dr. Carter Nurse Practitioner Margret Caceres MD, Babatunde Nurse Practitioner Margret Kimbrough DO, Dr. Cyr Nurse Practitioner Dr. Stephenie Mckenzie MD Attending Physician [phone] Wily Carlton DO Referring Provider [phone] WILY CARLTON DO Attending Unavailable BRANDT HARP WILY E Primary Care Unavailable COLBY BURNETT DO Attending Unavailable TRINIDAD RECONCILER-FUR FLOOR WORKER, MANJU Primary Care Unava terell ABDI APRN-FUR FLOOR WORKER, MANJU [facility] Bautista DO Attending Unavailable WILY CARLTON DO Attending Unavailable CARLTON DO WILY E Primary Care Unavailable Meera Rc Referring Unavailable Rc Estes Attending Unavailable Brandt, Wily Primary Care Unavailable Wily Carlton Primary Care Unavailable Stephenie Mckeznie Attending Unavailable Ger Kimbrough Admitting Unavailable Carlton, Wily Primary Care Unavailable Ger Kimbrough Attending Unavailable Ger Kimbrough Consulting Unavailable Rc Estes Attending Unavailable Brandt, Wily Primary Care Unavailable Wily Carlton Referring Unavailable Rc Estes Attending Unavailable Brandt, Wily Primary Care Unavailable Wily Carlton Referring Unavailable Carlton, Wily Primary Care Unavailable Sibilia, Cobly V Referring Unavailable Sibilia Colby V Attending Unavailable Carlton, Wily Primary Care Unavailable Mitchel Morel Attending Unavailable Meera Rc Referring Unavailable Rc Estes Attending Unavailable Carlton, Wily Primary Care Unavailable Meera Rc Referring Unavailable Rc Estes Attending Unavailable Carlton, Wily Primary Care Unavailable Ger Kimbrough Admitting Unavailable Carlton, Wily Primary Care Unavailable Angelito Trinidad Consulting Unavailable Ger Kimbrough Attending Unavailable Adeli, Amir Consulting Unavailable Hinduja, Susana Consulting Unavailable Jesus, Betzaida Consulting Unavailable Zha, Jemma Consulting Unavailable Calixto, Miles Consulting Unavailable Claudia, Hanna Consulting Unavailable Ramesh Chacon Consulting Unavailable Luis Manuel Amezquita Consulting Unavailable Alex Olmedo Consulting Unavailable Ramonita Arguello Consulting Unavailable Khushboo Etienne Consulting Unavailable Clifton London Consulting Unavailable Zelda Carranza Consulting Unavailable Chele Montalvo Consulting Unavailable Abad Hackett Consulting UnavailChristian Godwin Consulting Unavailable Dorinda Stockton Consulting Unavailable Rodolfo Urrutia Consulting Unavailable Emma Ramos Consulting Unavailable Babatunde Caceres Consulting Unavailable Allergies Allergy Classification Reported Allergen(s) Allergy Type Date of Onset Reaction(s) Facility (19 sources) seasonal enviromental Allergy to substance typical [facility] [place] (16 sources) Milk Products Food allergy Acid reflux (finding) [facility]VC (12 sources) Escitalopram; Translations: [escitalopram] Drug Allergy 5 Mental state finding (finding) [facility] Desiree Comment on above: wants to hurt self (6 sources) Milk Containing Products (Dairy) Allergy to substance 5 throat tightens [facility] (1 source) Escitalopram Drug Allergy 5 [facility] Repository (1 source) Milk Containing Products (Dairy) Drug allergy (disorder) 5 [facility] Repository Medications Current Medications Medication Drug Class(es) Dates Sig (Normalized) Sig (Original) 8 hr acetaminophen 650 mg extended release oral tablet (3 sources) Start: 03-27-2025 Tylenol 8 Hour 650 mg oral tablet, extended release Dose : 650 mg = 1 tab(s), Oral, q8h, PRN as needed for pain, # 24 tab(s), 0 Refill(s) Start Date: 03/27/25 Status: Ordered Medication Dispense Status: Completed Quantity: 24.0 Unit: tab(s) Total Allowed Fills: 1 Fills Dispensed: 0 aspirin 81 mg oral tablet (13 sources) Platelet Aggregation Inhibitor, Nonsteroidal Anti-inflammatory Drug Start: 05-24-2025 take 1 tablet by mouth once daily Start: 02-21-2024 aspirin 81 mg oral delayed release tablet Dose : 81 mg = 1 tab(s), Oral, qDay, # 30 tab(s), 11 Refill(s), Pharmacy: [id number], 177.8, cm, 02/21/24 5:27:00 EDT, Height, kg, 01/20/24 13:36:00 EDT, Dosing Weight Start Date: 02/21/24 Status: Ordered Medication Dispense Status: Completed Quantity: 30.0 Unit: tab(s) Total Allowed Fills: 12 Fills Dispensed: 0 azelastine hydrochloride 0.2 06 mg/actuat metered dose nasal spray (20 sources) Histamine-1 Receptor Antagonist Start: 12-19-2022 Start: 11-11-2017 End: 12-19-2022 Azelastine 0.15 % (205.5 mcg ) spray,non-aerosol Discontinued 1 NMA INTRANASAL TWICE A DAY November 11, 2017 1:00am December 19, 2022 9:59am Start: 11-11-2017 End: 12-19-2022 Azelastine Active 1 SPRAY IN TRANASAL TWICE A DAY December 19, 2022 9:59am cholecalciferol 1.25 mg oral capsule (3 sources) Vitamin D Start: 07-16-2025 take 1 capsule by mo uth every week Start: 07-16-2025 take 1 capsule by mouth every week Start: 07-16-2025 take 1 capsule by mouth every week clopidogrel 75 mg oral tablet (13 sources) [id number] Platelet Inhibitor Start: 05-24-2025 Plavix 75 mg oral tablet Dose : 75 mg = 1 tab(s), Oral, qDay, # 90 tab(s), 1 Refill(s), Pharmacy: [facility], 177.8, cm, 04/22/25 9:26:00 EDT, Height, kg, 04/22/25 9:26:00 EDT, Dosing Weight Start Date: 06/22/25 Status: Ordered Medication Dispense Status: Completed Quantity: 90.0 Unit: tab(s) Total Allowed Fills: 2 Fills Dispensed: 0 Start: 03-24-2025 Plavix 75 mg o ral tablet Dose : 75 mg = 1 tab(s), Oral, qDay, # 100 tab(s), 0 Refill(s), Pharmacy: [facility], 176, cm, 02/22/25 11:31:00 EDT, Height, kg, 02/22/25 11:31:00 EDT, Dosing Weight Start Date: 03/24/25 Status: Ordered Quantity: 100.0 Unit: tab(s) Repeat number: 1 Start: 03-23-2024 Plavix 75 mg o ral tablet Dose : 75 mg = 1 tab(s), Oral, qDay, # 90 tab(s), 3 Refill(s), Pharmacy: [facility], 175, cm, 03/19/24 9:54:00 EDT, Height, kg, 03/19/24 9:54:00 EDT, Dosing Weight Start Date: 03/23/24 Status: Ordered Quantity: 90.0 Unit: tab(s) Repeat number: 4 Start: 02-21-2024 Plavix 75 mg o ral tablet Dose : 75 mg = 1 tab(s), Oral, qDay, # 30 tab(s), 11 Refill(s), Pharmacy: [email or web address] 0[facility], 177.8, cm, 02/21/24 5:27:00 EDT, Height, kg, 01/20/24 13:36:00 EDT, Dosing Weight Start Date: 02/21/24 Status: Ordered doxycycline hyclate 100 mg oral capsule (1 source) Tetracycline-class Drug Start: 07-19-2025 End: 07-26-2025 doxycycline hyclate 100 mg oral capsule Dose : 100 mg = 1 cap(s), Oral, BID, X 7 day(s), # 14 cap(s), 0 Refill(s), 07/26/25 1:47:00 PM EDT, Pharmacy: [facility]/pharmacy #[id number], Sinus congestion, 170.2, cm, 07/19/25 13:10:00 EDT, Height, 97.3, kg, 07/19/25 12:59:00 EDT, Dosing Weight Start Date: 07/19/25 Stop Date: 07/26/25 Status: Ordered Medication Dispense Status: Completed Quantity: 14.0 Unit: cap(s) Total Allowed Fills: 1 Fills Dispensed: 0 Indications: Nasal congestion; Eligen B12 1000 mcg oral tablet (3 sources) Start: 03-27-2025 take 1 tablet by mouth once daily Eligen B12 1000 mcg oral tablet 1 tab(s), Oral, qDay, # 30 tab(s), 0 Refill(s) Start Date: 03/27/25 Status: Ordered Medication Dispense Status: Completed Quantity: 30.0 Unit: tab(s) Total Allowed Fills: 1 Fills Dispensed: 0 Start: 03-27-2025 take 1 tablet by hector th once daily Eligen B12 1000 mcg oral tablet 1 tab(s), Oral, qDay, # 30 tab(s), 0 Refill(s) Start Date: 03/27/25 Status: Ordered Quantity: 30.0 Unit: tab(s) Repeat number: 1 ezetimibe 10 mg oral tablet (11 sources) Dietary Cholesterol Absorption Inhibitor Start: 11-16-2024 take 1 tablet by mouth at bedtime famotidine 20 mg oral tablet (20 sources) Histamine-2 Receptor Antagonist Start: 03-14-2023 take 1 tablet by mouth once daily as needed for gastroesophageal reflux disease Start: 10-03-2020 End: 12-19-2022 take 1 tablet by mouth once daily Famotidine (Pepcid) 20 mg tablet Discontinued 20 mg PO DAILY October 03, 2020 1:00am December 19, 2022 9:59am hydrOXYzine hydrochloride 50 mg oral tablet (9 sources) Antihistamine Start: 03-30-2025 hydrOXYzine hy drochloride 50 mg oral tablet Dose : 50 mg = 1 tab(s), Oral, qHS, PRN Insomnia, # 30 tab(s), 1 Refill(s), Pharmacy: [email or web address] [id number], Insomnia, 175, cm, 03/30/25 15:02:00 EDT, Height, kg, 03/30/25 15:02:00 EDT, Dosing Weight Start Date: 03/30/25 Status: Ordered Medication Dispense Status: Completed Quantity: 30.0 Unit: tab(s) Total Allowed Fills: 2 Fills Dispensed: 0 Indications: Insomnia, unspecified; Start: 12-04-2023 End: 07-14-2025 take 1 tablet by mouth twice daily as needed for anxiety Hydroxyzine Hcl 25 mg tablet Discontinued 25 mg PO TWICE A DAY as needed for anxiety 60 5 July 20, 2024 12:00am July 14, 2025 9:51am lactase 3000 units oral tablet (2 sources) Start: 07-12-2025 lactase 3000 u nits oral tablet Dose : 9,000 unit(s) = 3 tab(s), Oral, TIDAC, # 100 tab(s), 2 Refill(s), Pharmacy: [facility], Lactose intolerance, 170.2, cm, 07/12/25 11:13:00 EDT, Height, kg, 07/12/25 11:13:00 EDT, Dosing Weight Start Date: 07/12/25 Status: Ordered Medication Dispense Status: Completed Quantity: 100.0 Unit: tab(s) Total Allowed Fills: 3 Fills Dispensed: 0 Indications: Lactose intolerance, unspecified; loratadine 5 mg disintegrating oral tablet (20 sources) Start: 02-15-2023 take 1 dose by mouth once daily as needed Claritin Dose : 5 mg =, Oral, qDay, PRN as needed for allergy symptoms, 0 Refill(s) Start Date: 02/15/23 Status: Ordered Repeat number: 1 Start: 02-15-2023 Claritin qDay, 0 Refill(s) Start Date: 02/15/23 Status: Ordered Start: 02-14-2023 take 1 tablet by hector th once daily as needed Start: 09-27-2022 End: 11-07-2022 take 1 tablet by mouth once daily Loratadine 10 mg tablet Discontinued 10 mg PO DAILY 30 September 27, 2022 1:00am November 07, 2022 4:37pm meclizine hydrochloride 25 m g oral tablet (20 sources) Antiemetic Start: 07-12-2025 meclizine 25 m g oral tablet TAKE HALF A TABLET BY MOUTH TWICE A DAY NEEDED FOR DIZZINESS Start Date: 07/12/25 Status: Ordered Medication Dispense Status: Completed Total Allowed Fills: 1 Fills Dispensed: 0 Start: 05-24-2025 Start: 11-07-2022 End: 05-24-2025 take 1 tablet by mouth twice daily Meclizine 25 mg tablet Discontinued 25 mg PO TWICE A DAY 60 5 July 20, 2024 2:34pm May 24, 2025 2:42pm dizziness Start: 07-05-2022 End: 11-07-2022 take 1 tablet by mouth three times daily as needed Meclizine 12.5 mg tablet Discontinued 12.5 mg PO THREE TIMES A DAY as needed September 27, 2022 1:00am November 07, 2022 4:36pm 24 hr metoprolol succinate 25 mg extended release oral tablet (20 sources) beta-Adrenergic Gabi Start: 04-03-2024 metopr olol succinate 25 mg oral TABLET extended release Dose : 25 mg = 1 tab(s), Oral, qDay, # 90 tab(s), 3 Refill(s), Pharmacy: [email or web address] [id number], 175, cm, 03/19/24 9:54:00 EDT, Height, kg, 03/19/24 9:54:00 EDT, Dosing Weight Start Date: 04/03/24 Status: Ordered Start: 01-21-2024 End: 01-21-2024 metoprolol tartrate 25 mg or al tablet Start: 01/21/24 7:30:00 AM EDT, Dose = 100 mg, = 4 tab(s), Oral, prep pharm, 1 dose(s), 01/21/24 7:18:00 EDT Notes: Take with food. Start Date: 01/21/24 Stop Date: 01/21/24 Status: Completed Start: 01-21-2024 End: 01-21-2024 metoprolol tartrate 1 mg/mL injectable solution Start: 01/21/24 7:18:00 AM EDT, Dose = 5 mg, = 5 mL, IV Push, q5min, PRN, Heart rate: Parameters in order comments, 4 dose(s), 01/21/24 7:18:00 EDT Start Date: 01/21/24 Stop Date: 01/21/24 Status: Discontinued Start: 09-06-2023 Metoprolol Suc cinate ER 100 mg oral TABLET extended release Dose : 100 mg = 1 tab(s), Oral, qDay, # 90 tab(s), 3 Refill(s), Pharmacy: [facility] #[id number], 177.8, cm, 09/06/23 8:31:00 EST, Height, kg, 09/06/23 8:31:00 EST, Dosing Weight Start Date: 09/06/23 Status: Ordered Start: 05-29-2023 metoprolol suc cinate 50 mg oral TABLET extended release See Instructions, 1/2 tab(s) Oral qDay x 1 week then stop, # 4 tab(s), 0 Refill(s), other reason (Rx) Start Date: 05/29/23 Status: Ordered Start: 05-23-2023 End: 05-24-2025 take 1 tablet by mouth once daily Metoprolol Succinate 50 mg tablet extended release 24 hr Discontinued 50 mg PO DAILY 19 09May 23, 2023 3:59pm May 24, 2025 2:38pm Start: 05-21-2023 End: 05-23-2023 take 1 tablet by mouth once daily Metoprolol Succinate 25 mg tablet extended release 24 hr Discontinued 25 mg PO DAILY 30 May 21, 2023 1:59pm May 23, 2023 3:59pm Start: 03-12-2023 End: 05-21-2023 take 1 tablet by mouth once daily Metoprolol Succinate 50 mg tablet extended release 24 hr Discontinued 50 mg PO DAILY 30 March 12, 2023 12:00am May 21, 2023 2:00pm Start: 03-06-2023 End: 03-12-2023 take 1 tablet by mouth once daily Metoprolol Succinate 25 mg tablet extended release 24 hr Discontinued 25 mg PO DAILY 30 March 06, 2023 12:00am March 12, 2023 8:32am mexiletine hydrochloride 150 mg oral capsule (4 sources) Antiarrhythmic Start: 12-09-2023 mexiletine 150 mg oral capsule Dose : 150 mg = 1 cap(s), Oral, q8h, # 270 cap(s), 3 Refill(s), Pharmacy: [facility] [[email or web address]acy [id number], 176, cm, 12/04/23 13:57:00 EST, Height, kg, 12/04/23 13:57:00 EST, Dosing Weight Start Date: 12/09/23 Status: Ordered montelukast 10 mg oral tablet (20 sources) Leukotriene Receptor Antagonist Start: 07-05-2022 take 1 tablet by mouth once daily as needed Multivit With Min-Folic Acid (Centrum Adults) 12 mcg Tablet,Chewable (10 sources) Start: 02-14-2023 take 1 tablet by mouth once Start: 02-14-2023 take 1 tablet by hector th once daily Multivit With Min-Folic Acid (Centrum Adults) 12 mcg Tablet,Chewable Active 1 {tbl} PO DAILY February 14, 2023 12:00am Start: 02-14-2023 take 1 tablet by hector th once daily Multivit With Min-Folic Acid (Centrum Adults) 12 mcg Tablet,Chewable Active 1 TABLET PO DAILY February 14, 2023 12:00am promethazine hydrochloride 12.5 mg oral tablet (1 source) Phenothiazine Start: 04-30-2024 promethazine 12.5 mg oral tablet Dose : 12.5 mg = 1 tab(s), Oral, q4h, PRN as needed for motion sickness, # 40 tab(s), 0 Refill(s), Pharmacy: [facility] [[email or web address] [id number], BPPV (benign paroxysmal positional vertigo), 176, cm, 04/30/24 12:49:00 EDT, Height, kg, 04/30/24 12:49:00 EDT, Dosing Weight Start Date: 04/30/24 Status: Ordered propranolol hydrochloride 20 mg oral tablet (1 source) beta-Adrenergic Gabi Start: 07-19-2025 propranolol 20 mg oral tablet Dose : 20 mg = 1 tab(s), Oral, TID, Take 30-60 min before triggering events, # 90 tab(s), 0 Refill(s), Pharmacy: [facility]/pharmacy #[id number], NSVT (nonsustained ventricular tachycardia), 170.2, cm, 07/19/25 13:10:00 EDT, Height, kg, 07/19/25 12:59:00 EDT, Dosing Weight Start Date: 07/19/25 Status: Ordered Medication Dispense Status: Completed Quantity: 90.0 Unit: tab(s) Total Allowed Fills: 1 Fills Dispensed: 0 Indications: Other ventricular tachycardia; rosuvastatin calcium 20 mg oral tablet (20 sources) HMG-CoA Reductase Inhibitor Start: 03-01-2025 take 1 tablet by mouth once daily Start: 03-19-2024 rosuvastatin 2 0 mg oral tablet Dose : 20 mg = 1 tab(s), Oral, qDay, # 90 tab(s), 5 Refill(s), Pharmacy: [facility] [[email or web address] Pharmacy [id number], 175, cm, 03/19/24 9:54:00 EDT, Height, kg, 03/19/24 9:54:00 EDT, Dosing Weight Start Date: 03/19/24 Status: Ordered Quantity: 90.0 Unit: tab(s) Repeat number: 6 Start: 08-25-2021 End: 05-24-2025 take 1 tablet by mouth at bedtime Rosuvastatin (Crestor) 5 mg Tablet Discontinued 5 mg PO AT BEDTIME August 25, 2021 12:00am May 24, 2025 2:39pm Start: 10-19-2020 End: 12-28-2020 take 1 tablet by mouth once daily Rosuvastatin 5 mg tablet Discontinued 5 mg PO DAILY October 19, 2020 1:00am December 28, 2020 12:29pm Scopolamine Base 1 mg over 3 days patch 3 day (2 sources) Start: 05-24-2025 Scopolamine Ba se 1 mg over 3 days patch 3 day Active 1 NMA TD Every 3 Days 10 May 24, 2025 12:00am 24 hr verapamil hydrochloride 120 mg extended release oral capsule (1 source) Calcium Channel Gabi Start: 08-27-2023 take 1 capsule by mouth every hour, then take 1 capsule by mouth once daily verapamil 120 mg/24 hours oral capsule, extended release Dose : 120 mg = 1 cap(s), Oral, qDay, # 30 cap(s), 3 Refill(s), Pharmacy: [facility] #[id number], 175, cm, 08/27/23 9:12:00 EST, Height, kg, 08/27/23 9:12:00 EST, Dosing Weight Start Date: 08/27/23 Status: Ordered Vitamin B Complex oral capsule (4 sources) Start: 09-21-2024 take 1 capsule by mouth every other day Vitamin B Complex oral capsule Dose = 1 cap(s), Oral, Every other day, 0 Refill(s) Start Date: 09/21/24 Status: Ordered Repeat number: 1 Completed/Discontinued Medications Medication Drug Class(es) Dates Sig (Normalized) Sig (Original) acetaminophen 325 mg / oxyCODONE hydrochloride 5 mg oral tablet (20 sources) Opioid Agonist Start: 08-30-2021 End: 09-27-2022 Oxycodone-Acetamin ophen (Endocet) 5-325 mg tablet Discontinued 1 {tbl} PO EVERY 6 HOURS as needed for pain 28 7 0 August 30, 2021 September 27, 2022 11:12am Right foot pain Pain in right foot apixaban 5 mg oral tablet (20 sources) Factor Xa Inhibitor Start: 10-01-2021 End: 09-27-2022 take 2 tablets by mouth twice daily Apixaban (Eliquis) 5 mg tablet Discontinued 10 mg PO TWICE A DAY October 01, 2021 1:00am September 27, 2022 11:12am busPIRone hydrochloride 5 mg oral tablet (15 sources) Start: 09-27-2022 End: 11-07-2022 take 1 tablet by mouth twice daily Buspirone 5 mg tablet Discontinued 5 mg PO TWICE A DAY 60 5 September 27, 2022 1:00am November 07, 2022 4:37pm diclofenac sodium 0.01 mg/mg topical gel (20 sources) Nonsteroidal Anti-inflammatory Drug Start: 12-28-2020 End: 09-27-2022 apply 2 g topically once Diclofenac Sodium (Voltaren) 1 % gel Discontinued 2 g TOPICAL ONCE December 28, 2020 1:00am September 27, 2022 11:12am apply to single elbow, wrist or hand; for hand includes palm/fingers/back of hand Start: 12-28-2020 End: 09-27-2022 apply 2 g topically once Diclofenac Sodium (Voltaren) 1 % gel Discontinued 2 GM TOPICAL ONCE December 28, 2020 1:00am September 27, 2022 11:12am apply to single elbow, wrist or hand; for hand includes palm/fingers/back of hand Fluticasone Propion-Salmeterol (20 sources) Corticosteroid, beta2-Adrenergic Agonist Start: 10-03-2020 End: 10-19-2020 Fluticasone Propion-Salmeterol (Advair Diskus) 100-50 mcg/dose blister with device Discontinued 1 INH INHALATION TWICE A DAY October 03, 2020 5:44pm October 19, 2020 1:01pm Start: 10-03-2020 End: 10-19-2020 Fluticasone Propion-Salmeter ol (Advair Diskus) 100-50 mcg/dose blister with device Discontinued 1 NMA INHALATION TWICE A DAY October 03, 2020 1:00am October 19, 2020 1:01pm Start: 10-03-2020 End: 10-19-2020 Fluticasone Propion-Salmeter ol (Advair Diskus) 100-50 mcg/dose blister with device Discontinued 1 INH INHALATION TWICE A DAY October 03, 2020 12:00am October 19, 2020 12:01pm Start: 10-03-2020 End: 10-19-2020 Fluticasone Propion-Salmeter ol (Advair Diskus) 100-50 mcg/dose blister with device Discontinued 1 INH INHALATION TWICE A DAY October 03, 2020 1:00am October 19, 2020 1:01pm furosemide 20 mg oral tablet (20 sources) Loop Diuretic Start: 12-28-2020 End: 09-27-2022 take 10 mg by mouth once daily as needed for edema Furosemide (Lasix) 20 mg tablet Discontinued 10 mg PO DAILY as needed for Edema December 28, 2020 1:00am September 27, 2022 11:12am Start: 09-26-2020 End: 10-19-2020 take 1 tablet by mouth once daily Furosemide 40 MG tablet Discontinued 40 mg PO DAILY September 26, 2020 1:00am October 19, 2020 1:01pm Garlic (20 sources) Non-Standardized Food Allergenic Extract Start: 10-03-2020 End: 10-19-2020 take 1000 mg by mouth once daily Garlic Discontinued 1000 MG PO DAILY October 03, 2020 5:44pm October 19, 2020 1:02pm Start: 10-03-2020 End: 10-19-2020 take 1 capsule by mouth once daily Garlic 1,000 mg capsule Discontinued 1000 mg PO DAILY October 03, 2020 1:00am October 19, 2020 1:02pm Start: 10-03-2020 End: 10-19-2020 take 1000 mg by mouth once daily Garlic Discontinued 1000 MG PO DAILY October 03, 2020 12:00am October 19, 2020 12:02pm Start: 10-03-2020 End: 10-19-2020 take 1000 mg by mouth once daily Garlic Discontinued 1000 MG PO DAILY October 03, 2020 1:00am October 19, 2020 1:02pm Start: 04-21-2019 take 1 capsule by [facility] once daily as needed garlic oral capsule Dose = 1 cap(s), Oral, Daily, PRN occ, 0 Refill(s) Start Date: 04/21/19 Status: Ordered hydroCHLOROthiazide 25 mg oral tablet (11 sources) Thiazide Diuretic Start: 01-29-2023 End: 02-05-2023 take 1 tablet by mouth once daily in the morning Hydrochlorothiazide 25 mg tablet Discontinued 25 mg PO EVERY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 however the patient decided not to pursue this. The patient reported that he was found to have some coronary artery disease and underwent a coronary artery stent placement in 2023. He takes aspirin 81 mg daily and clopidogrel. Since his upper respiratory tract infection in 2019, he has had episodic disequilibrium. Along with his disequilibrium, he has also experienced vague lightheadedness. Meclizine has been of some benefit in reducing the severity of his disequilibrium. Hydrochlorothiazide for treatment of possible M???ni???re's disease caused side effects of palpitations and headaches. Hydroxyzine caused anxiety. Loratadine was not of benefit for his dizziness. Scopolamine patch was not of benefit and caused dizziness. Vestibular rehabilitation was of some initial benefit and he has continued to perform vestibular exercises however subsequent vestibular rehabilitation was not of benefit. He has had nearly continuous left ear tinnitus since his upper respiratory tract infection in 2019. He underwent ENT evaluation (by Dr. Loki Jain) and was found to have mild left-sided hearing loss. This hearing loss may fluctuate to some degree. He denied having headaches, vision loss, numbness, weakness, neck pain or low back pain. Emotional stress appears to be a trigger for disequilibrium which had occurred multiple times per day in the past. Since 2022, his episodes of disequilibrium have overall decreased in frequency and have occurred several times per week. Individual episodes last about a 1 minute. Although he may experience episodes of disequilibrium when sitting, his disequilibrium is more likely to occur, or more likely to become pronounced, with movement. He had a COVID-19 infection in February 2022 that manifested with fever, fatigue, cough, and impaired taste sensation. A head MRI in 2021 was unremarkable. Buspirone caused insomnia. He has had insomnia characterized by awakening multiple times during the night. He does not feel well rested when he awakens in the morning. He has been observed to snore at night. He feels sleepy during the day. He has been diagnosed with obstructive sleep apnea and is on BiPAP. He continues to experience multiple awakenings during the night. He has fatigue. He states that he momentarily falls asleep numerous times daily. He described having a recent episode of transient weakness in the arms. He states that narcolepsy and cataplexy were suspected in a recent evaluation by a lift slab operator. A trial of modafinil was not well tolerated. Since around February 2025 he has been experiencing intermittent numbness and tingling in the hands that occurs when he is grasping a steering wheel. He was hospitalized yesterday (07/14/25) for various transient symptoms including visual scintillations, left arm heaviness and paresthesias, mild headache, and increased dysequilibrium. His evaluation with head MRI was normal. A head/neck CTA revealed calcifications in the intracranial carotid arteries bilaterally that caused some degree of stenosis. A clear cause for his symptoms was not identified. A B12 injection for fatigue was not well tolerated. Physical Exam: Neuro: The patient is awake and alert and responds appropriately; speech is fluent; EOMI; no nystagmus; there are no deficits to soft touch in the hands; motor strength is 5/5 in the abductor pollicis brevis bilaterally and first dorsal interosseous bilaterally Neck: No bruits Heart: Regular rate and rhythm Note: During his office visit on 01/29/2023, his heart rate ranged from 42 up to the 90s while he was seated and the patient reported palpitations during these periods of watt (more content not included)... Normal [facility] 12 Lead EKGon 07-14-2025 12 Lead EKG [facility] Cardiovascular Services [address] [place] [address] 12 Lead EKG 07/14/25 0838 MR#: [id number] Acct: [id number] Name: COLIN PENN Rep #: [id number] : 1960 65 From: Gene Chao MD Attending Dr: Dr. Ger Kimbrough, DO Status: DIS DANIE Ordering Dr: Ger Jason DO Date: 07/14/25 Location: [facility] Sex: M C Admitted: 07/14/25 Test Reason : STROKE Blood Pressure : */* mmHG Vent. Rate : 88 BPM Atrial Rate : 88 BPM P-R Int : 146 ms QRS Dur : 86 ms QT Int : 360 ms P-R-T Axes : 32 51 44 degrees QTcB Int : 435 ms Normal sinus rhythm Normal ECG When compared with ECG of 26-Mar-2025 10:51, No significant change was found Confirmed by BEAU ELLIS, GENE ([id number]), primer expeditor and drier ANDERSON LITTLE ([id number]) on 07/16/2025 11:04:27 AM Referred By: Confirmed By: GENE CHAO MD 07/16/25 1104 Date Gene Chao MD CC: Dr. Ger Kimbrough, DO; Dr. Ger Jason, DO; Dr. Wily Carlton, DO Signed Normal [facility] Absolute lymphocyte countOrd ered By: Ger Jason on 07-14-2025 Lymphocytes Auto (Unsp spec) [#/Vol] 2.11 10*3/uL 0.83-4.51 [facility] Absolute neutrophil countOrd ered By: Ger Jason on 07-14-2025 Neutrophils (Bld) [#/Vol] 2.1 10*3/uL 2.0-7.7 [facility] Activated partial thrombopla stin time (aPTT) in platelet poor plasma by coagulation aOrdered By: Ger Jason on 07-14-2025 aPTT Coag (PPP) [Time] 23.7 s Low 24.1-36.2 [facility] Anion gap in Serum or Plasma Ordered By: Ger Jason on 07-14-2025 Anion gap [Moles/Vol] 12 mmol/L 5-15 [facility] Automated blood erythrocyte countOrdered By: Ger Jason on 07-14-2025 RBC (Bld) [#/Vol] 4.75 10*6/uL Normal 4.6-6.2 [facility] Comment on above: Performed By: #### L 499.0043 #### [facility] [address] [place], [address] Automated blood hematocrit ( percentage)Ordered By: Ger Jason on 07-14-2025 Hematocrit (Bld) [Volume fraction] 41.8 % Normal 40-54 [facility] Comment on above: Performed By: #### L 499.0043 #### [facility] [address] [place], [address] Automated lymphocyte count a s percentage of total leukocytesOrdered By: Ger Jason on 07-14-2025 Lymphocytes/100 WBC Auto (Unsp spec) 44.4 % High 19-41 [facility] BUN/creatinine ratioOrdered By: Ger Jason on 07-14-2025 Urea nitrogen/Creatinine [Mass ratio] 17.4 mg/mg 10- [facility] Basic Metabolic Profile (BMP )on 07-14-2025 BUN/CRE 17.4 RATIO Normal 10-20 [facility] Comment on above: Performed By: #### L 499.0043 #### [facility] [address] [place], [address] ECRCL 147.36 ml/min Normal 50-250 [facility] Comment on above: Performed By: #### L 499.0043 #### [facility] [address] [place], [address] GAP 12 Normal 5-15 [facility] Comment on above: Performed By: #### L 499.0043 #### [facility] [address] [place], [address] Potassium [Moles/Vol] 3.8 mmol/L Normal 3.3-5.1 [facility] Comment on above: Performed By: #### L 499.0043 #### [facility] [address] [place], [address] Basophil percentageOrdered B y: Ger Jason on 07-14-2025 Basophils/100 WBC (Bld) 1.1 % High 0-1 [facility] Comment on above: Performed By: #### L 499.0043 #### [facility] [address] [place], [place], [address] Bedside Glucoseon 07-14-2025 FINGERSTICK GLU 172 mg/dL High 74-106 [facility] Comment on above: Result Comment: JODI SANTIAGO OF PATIENT CARE PER NURSING PROTOCOL Performed By: #### L 501.080 #### [facility] [address] [place], [place], [address] Brain without Contraston Brain without Contrast [facility] Imaging Services [address] [place], [place] [address] Brain without Contrast MR#: [id number] Acct: [id number] Name: COLIN PENN Rep #: [id number] : 1960 M 65 From: Soy Lamar MD PCP: Dr. Wily Carlton DO Status: ADM DANIE Study: Brain without Contrast Date of Exam: 07/14/25 Exam# [id number] Ordering Dr: Ger Kimbrough DO PROCEDURE: BRAIN WITHOUT CONTRAST 07/14/2025 REASON FOR EXAM: LEFT SIDE PARESTHESIA TECHNIQUE: Procedure Code: MRIBR Modality: MR Procedure: BRAIN WITHOUT CONTRAST Multiplanar and multisequence images were obtained. COMPARISON: Earlier today's CT. FINDINGS: Diffusion-weighted images:Negative. ADC map: Negative. Gradient images: Negative. Cerebrum: Mild loss of cerebral volume. Negative for mass the frontal, parietal, temporal and occipital lobes negative. White matter: Negative for periventricular white matter changes. Negative for T2 lesions in the centrum semiovale. Cerebellum: Negative cerebellum. CSF pathways and ventricles: Negative. Negative for ventricular dilatation or obstruction. Basal ganglia and thalami: Negative. No acute infarctions. Brainstem: Midbrain, itz and medulla negative. Midline structures: The corpus callosum, pituitary fossa and cerebellar tonsils are negative. Limbic system: Medial temporal lobes and limbic system negative. Extra-axial spaces: Negative. Negative for subarachnoid, subdural or epidural hemorrhage. Orbital structures: Globes negative. Extraocular muscles negative. Paranasal sinuses: Mucosal disease in the ethmoid sinuses. Lesser mucosal disease in the maxillary and frontal sinuses. Remainder of the sinuses negative. Vascular structures: Normal intracranial flow voids including the superior sagittal sinus. Other: No abnormal enhancement. Remainder of exam negative. MRI/Brain without Contrast IMPRESSION: Negative MR of the brain. Negative for acute intracranial pathology. Diffuse paranasal sinus disease Reading Location: [place] [address] CC: Dr. Ger Kimbrough, DO; Dr. Wily Carlton, DO Research Program Coordinator: Signed Normal [facility] CBC W/Diff, Automatedon 06-22 Absolute Lymph 2.11 X10 3/uL Normal 0.83-4.51 [facility] Comment on above: Performed By: #### L 499.0043 #### [facility] [address] [place], [address] Absolute Neut 2.1 X10 3/uL Normal 2.0-7.7 [facility] Comment on above: Performed By: #### L 499.0043 #### [facility] [address] [place], [address] IG% 0.600 Normal 0.0-0.9 [facility] Comment on above: Result Comment: IG% - Immature Granulocytes (promyelocytes, myelocytes and metamyelocytes) > 1% indicates that a LEFT SHIFT is Present. Performed By: #### L 499.0043 #### [facility] [address] [place], [address] Lymphocytes/100 WBC (Bld) 44.4 % High 19-41 [facility] Comment on above: Performed By: #### L 499.0043 #### [facility] [address] [place], [address] Nucleated RBC (Bld) [#/Vol] 0 10*3/uL Normal 0-5 [facility] Comment on above: Performed By: #### L 499.0043 #### [facility] [address] [place], [place], [address] RDW SD 44.5 fl High 35.1-43.9 [facility] Comment on above: Performed By: #### L 499.0043 #### [facility] [address] [place], [address] Carbon dioxide, total [Moles /volume] in Central venous bloodOrdered By: Ger Jason on 07-14-2025 CO2 [Moles/Vol] 23.5 mmol/L Normal 21.0-32.0 [facility] Comment on above: Performed By: #### L 499.0043 #### [facility] [address] [place], [address] Chest 1 Viewon 07-14-2025 Chest [address] [facility] Imaging Services [address] [place], [place] [address] Chest 1 View MR#: [id number] Acct: [id number] Name: COLIN PENN Rep #: [id number] : 1960 M 65 From: Sarwat Silvestre MD PCP: Dr. Wily Carlton DO Status: REG ER Study: Chest 1 View Date of Exam: 07/14/25 Exam# [id number] Ordering Dr: Ger Jason DO PROCEDURE: CHEST 1 VIEW 07/14/2025 REASON FOR EXAM: NEURO DEFICIT, ACUTE, STROKE SUSPECTED TECHNIQUE: Frontal view of the chest. COMPARISON: None FINDINGS: Heart size and mediastinal configuration are within normal limits. There is no focal infiltrate or consolidation. There is no pneumothorax or effusion. There is no acute bony abnormality. There is no visible atherosclerosis. RAD/Chest 1 View IMPRESSION: No acute process is identified in the chest. Reading Location: [facility] CC: Dr. Ger Jason DO; Dr. Wily Carlton DO Research Program Coordinator: Signed Normal [facility] Chloride assayOrdered By: Lance Jason on 07-14-2025 Chloride [Moles/Vol] 104 mmol/L Normal 98-108 [facility] Comment on above: Performed By: #### L 499.0043 #### [facility] [address] [place], [address] Echo Completeon 07-14-2025 Echo Complete [facility] Cardiovascular Services [address] [place] [address] Echo Complete 07/14/25 1440 MR#: [id number] Acct: [id number] Name: COLIN PENN Rep #: [id number] : 1960 65 From: Stephenie Mckenzie MD Attending Dr: Dr. Ger Kimbrough, Status: ADM DANIE Ordering Dr: Ger Kimbrough DO Date: 07/14/25 Location: [facility] Sex: M C Admitted: 07/14/25 Reason For Study Reason For Study: TIA/CVA Procedure This was a 2D Doppler, Color Flow transthoracic echocardiogram. Exam performed portable in patient room. Left Ventricle Normal size and thickness. The left ventricular ejection fraction is 65 %. No evidence for diastolic dysfunction. Right Ventricle Normal right ventricle. Atria The left and right atria are normal. Bubble contrast study is negative for PFO/ASD. Mitral Valve Trivial mitral valve insufficiency. Tricuspid Valve Trivial tricuspid valve insufficiency. Normal pulmonary artery pressure. Aortic Valve Mild focal calcification of the aortic valve leaflets. Aortic valve sclerosis without stenosis. Trivial aortic valve regurgitation. Pulmonic Valve The pulmonic valve is not well visualized. Great Vessels Normal sized aortic root. Pericardium/Pleural No pericardial effusion. Medication Performed a rapid injection of agitated mix of 9 cc saline and 1cc air to assess for atrial septal defect. MMode/2D Measurements Calculations LVIDd: 4.6 cm IVSd: 1.0 cm Ao root diam: 3.3 cm LVIDs: 3.0 cm LVPWd: 1.0 cm RVDd: 3.5 cm FS: 33.5 % LAV(MOD-bp): 58.7 ml LVAd ap4: 28.8 cm2 LVAd ap2: 28.1 cm2 LAV(MOD-bp) Indexed: 27.1 ml/m2 LVLd ap4: 8.5 cm LVLd ap2: 8.5 cm LAV(MOD-sp2): 56.2 ml EDV(MOD-sp4): 80.0 ml EDV(MOD-sp2): 78.1 ml LAV(MOD-sp4): 60.9 ml EDV(sp4-el): 82.4 ml EDV(sp2-el): 78.9 ml LVAs ap4: 15.3 cm2 LVAs ap2: 14.6 cm2 LVLs ap4: 6.7 cm LVLs ap2: 6.8 cm ESV(MOD-sp4): 31.8 ml ESV(MOD-sp2): 27.7 ml ESV(sp4-el): 29.9 ml ESV(sp2-el): 26.5 ml EF(MOD-sp4): 60.3 % EF(MOD-sp2): 64.6 % EF(sp4-el): 63.7 % SV(MOD-sp4): 48.2 ml SV(MOD-sp2): 50.4 ml SV(sp4-el): 52.5 ml SI(MOD-sp4): 22.2 ml/m2 SI(MOD-sp2): 23.2 ml/m2 LA A4 area: 20.3 cm2 LA dimension(2D): 4.1 cm RA A4 area: 18.6 cm2 TAPSE: 2.8 cm Time Measurements MV dec time: 0.18 sec Doppler Measurements Calculations MV E max shahriar: 57.9 cm/sec Lat Peak E' Shahriar: 11.3 cm/sec Med Peak E' Shahriar: 10.9 cm/sec MV A max shahriar: 71.5 cm/sec E/E' lat: 5.1 E/E' med: 5.3 MV E/A: 0.81 Ao V2 max: 151.1 cm/sec LV V1 max: 97.2 cm/sec PA V2 max: 135.4 cm/sec Ao max P.1 mmHg LV V1 max P.8 mmHg Ao V2 mean: 112.0 cm/sec LV V1 mean P.0 mmHg Ao mean P.4 mmHg LV V1 mean: 67.4 cm/sec Ao V2 VTI: 28.5 cm LV V1 VTI: 19.2 cm AV (velocity ratio): 0.67 TR max shahriar: 261.4 cm/sec TR max P.4 mmHg ECHO/Echo Complete Interpretation Summary The left ventricular ejection fraction is 65 %. No evidence for diastolic dysfunction. Bubble contrast study is negative for PFO/ASD. Mild focal calcification of the aortic valve leaflets. Aortic valve sclerosis without stenosis. Trivial aortic valve regurgitation. Ordering Physician: Ger Kimbrough Referring Physician: Wily Carlton Performed By: Raegan Santos, MAYNOR, RVT 07/14/25 1607 Date Stephenie Mckenzie MD CC: Dr. Ger Kimbrough DO; Dr. Wily Carlton DO Date Dictated: 07/14/25 1440 Date Transcribed: 07/14/25 160 Research Program Coordinator: Signed Normal [facility] Echocardiogram study reportO rdered By: Stephenie Mckenzie on 07-14-2025 Study report [facility] Cardiovascular Services [address] [place] [address] Echo Complete 07/14/25 1440 MR#: [id number] Acct: [id number] Name: COLIN PENN Rep #:[id number] : 1960 65 From: Stephenie Mckenzie MD Attending Dr: Dr. Ger Kimbrough DO Status: ADM DANIE Ordering Dr: Ger Kimbrough DO Date: Location: [facility] Sex: M C Admitted: 07/14/25 Reason For Study Reason For Study: TIA/CVA Procedure This was a 2D Doppler, Color Flow transthoracic echocardiogram. Exam performed portable in patient room. Left Ventricle Normal size and thickness. The left ventricular ejection fraction is 65 %. No evidence for diastolic dysfunction. Right Ventricle Normal right ventricle. Atria The left and right atria are normal. Bubble contrast study is negative for PFO/ASD. Mitral Valve Trivial mitral valve insufficiency. Tricuspid Valve Trivial tricuspid valve insufficiency. Normal pulmonary artery pressure. Aortic Valve Mild focal calcification of the aortic valve leaflets. Aortic valve sclerosis without stenosis. Trivial aortic valve regurgitation. Pulmonic Valve The pulmonic valve is not well visualized. Great Vessels Normal sized aortic root. Pericardium/Pleural No pericardial effusion. Medication Performed a rapid injection of agitated mix of 9 cc saline and 1cc air to assessfor atrial septal defect. MMode/2D Measurements & Calculations LVIDd: 4.6 cm IVSd: 1.0 cm Ao root diam: 3.3 cm LVIDs: 3.0 cm LVPWd: 1.0 cm RVDd: 3.5 cm FS: 33.5 % LAV(MOD-bp): 58.7 ml LVAd ap4: 28.8 cm2 LVAd ap2: 28.1 cm2 LAV(MOD-bp) Indexed: 27.1 ml/m2 LVLd ap4: 8.5 cm LVLd ap2: 8.5 cm LAV(MOD-sp2): 56.2 ml EDV(MOD-sp4): 80.0 ml EDV(MOD-sp2): 78.1 ml LAV(MOD-sp4): 60.9 ml EDV(sp4-el): 82.4 ml EDV(sp2-el): 78.9 ml LVAs ap4: 15.3 cm2 LVAs ap2: 14.6 cm2 LVLs ap4: 6.7 cm LVLs ap2: 6.8 cm ESV(MOD-sp4): 31.8 ml ESV(MOD-sp2): 27.7 ml ESV(sp4-el): 29.9 ml ESV(sp2-el): 26.5 ml EF(MOD-sp4): 60.3 % EF(MOD-sp2): 64.6 % EF(sp4-el): 63.7 % SV(MOD-sp4): 48.2 ml SV(MOD-sp2): 50.4 ml SV(sp4-el): 52.5 ml SI(MOD-sp4): 22.2 ml/m2 SI(MOD-sp2): 23.2 ml/m2 LA A4 area: 20.3 cm2 LA dimension(2D): 4.1 cm RA A4 area: 18.6 cm2 TAPSE: 2.8 cm Time Measurements MV dec time: 0.18 sec Doppler Measurements & Calculations MV E max shahriar: 57.9 cm/sec Lat Peak E' Shahriar: 11.3 cm/sec Med Peak E' Shahriar: 10.9 cm/sec MV A max shahriar: 71.5 cm/sec E/E' lat: 5.1 E/E' med: 5.3 MV E/A: 0.81 Ao V2 max: 151.1 cm/sec LV V1 max: 97.2 cm/sec PA V2 max: 135.4 cm/sec Ao max P.1 mmHg LV V1 max P.8 mmHg Ao V2 mean: 112.0 cm/sec LV V1 mean P.0 mmHg Ao mean P.4 mmHg LV V1 mean: 67.4 cm/sec Ao V2 VTI: 28.5 cm LV V1 VTI: 19.2 cm AV (velocity ratio): 0.67 TR max shahriar: 261.4 cm/sec TR max P.4 mmHg ECHO/Echo Complete Interpretation Summary The left ventricular ejection fraction is 65 %. No evidence for diastolic dysfunction. Bubble contrast study is negative for PFO/ASD. Mild focal calcification of the aortic valve leaflets. Aortic valve sclerosis without stenosis. Trivial aortic valve regurgitation. Ordering Physician: Ger Kimbrough Referring Physician: Wily Carlton Performed By: Raegan Santos, MAYNOR, RVT 07/14/25 1607 Date _ Stephenie Mckenzie MD CC: Dr. Ger Kimbrough DO; Dr. Wily Carlton, ~ Date Dictated: 07/14/25 1440 Date Transcribed: 07/14/25 160 Research Program Coordinator: Signed [facility] Work Phone: Electrocardiogram reportOrde red By: Gene Chao on 07-14-20[address] [facility] Cardiovascular Services [address] [place] [address] 12 Lead EKG 07/14/25 0838 MR#: [id number] Acct: [id number] Name: COLIN PENN Rep #:[id number] : 1960 65 From: Gene Chao MD Attending Dr: Dr. Ger Kimbrough DO Status: DIS DANIE Ordering Dr: Ger Jason DO Date: 0 07/14/25 Location: [facility] Sex: M C Admitted: 07/14/25 Test Reason : STROKE Blood Pressure : */* mmHG Vent. Rate : 88 BPM Atrial Rate : 88 BPM P-R Int : 146 ms QRS Dur : 86 ms QT Int : 360 ms P-R-T Axes : 32 51 44 degrees QTcB Int : 435 ms Normal sinus rhythm Normal ECG When compared with ECG of 26-Mar-2025 10:51, No significant change was found Confirmed by GENE CHAO MD ([id number]), primer expeditor and drier ANDERSON LITTLE ([id number]) on 07/16/2025 11:04:27 AM Referred By: Confirmed By: GENE CHAO MD 07/16/25 3618 Date _ Gene Chao MD CC: Dr. Ger Kimbrough DO; Dr. Ger Jason DO; Dr. Wily Carlton DO ~ Signed [facility] Work Phone: Emergency Department Summary on 07-14-2025 Emergency Department Summary [facility] Medical Records Department [address] [place] [address] Emergency Department Summary 07/14/25 MR#: [id number] Acct: [id number] Name: COLIN PENN Rep #: [id number] : 1960 65 From: Ger Jason DO PCP: Dr. Wily Carlton DO Status:DIS DANIE Location: [address] History of Present Illness Chief Complaint: Neuro S/Sx Informant: patient Onset/Context/Timing Onset: Today Context: Sudden Onset Timing: Continuous Quality and Location: Positive for Left Arm Parasthesia and - (Visual disturbance) Onset: 0650 today (approximately 45 minutes prior to arrival) Worsened by: Nothing Relieved by: Nothing Associated Symptoms Associated Symptoms: Positive for Headache; Negative for Nausea, Vomiting or Chest Pain Narrative Narrative: Patient presents with visual disturbance that began approximately 45 minutes prior to arrival. Patient states he saw flashes of colors in the peripheral vision. Patient states that later he started feeling some heaviness in his left arm. Patient admits to some paresthesias in his left arm. Patient denies any weakness. Patient denies any slurred speech. Patient admits to a mild headache. Patient denies any chest pain. Patient denies any nausea or vomiting at this time. Patient states he gets intermittent nausea from his M???ni???re's disease. PFSH [facility] Medical History Hiatal hernia Osteoporosis DVT (deep venous thrombosis) Migraines Osteoarthritis High triglycerides History of blood clots Seasonal allergies History of DVT (deep vein thrombosis) Wears glasses High cholesterol Gastric reflux Non-smoker Cardiology follow-up encounter History of Holter monitoring History of echocardiogram History of stress test Asthma Hyperlipidemia GERD (gastroesophageal reflux disease) Insomnia Obesity Home Medications ???Medication ???Instructions ???Recorded ???Last Taken ???Type montelukast 10 mg tablet 10 mg PO DAILY PRN allergies 09/27 Unknown History (Singulair) azelastine 205.5 mcg (0.15 %) 1 spray intranasal BID PRN 3 Unknown History nasal spray allergies loratadine 10 mg tablet 10 mg PO DAILY PRN allergies 02/14 Unknown History multivitamin with minerals-folic 1 tab PO MOWEFR supplement 3 07/12/25 History acid 12 mcg chewable tablet (Centrum Adults) famotidine 20 mg tablet 20 mg PO DAILY PRN gerd 03/14/23 0 07/11/25 History aspirin 81 mg tablet 81 mg PO QDAY 05/24/25 07/13/25 Hi story clopidogrel 75 mg tablet 75 mg PO QDAY 05/24/25 07/13/25 Hi story ezetimibe 10 mg tablet 10 mg PO QHS 05/24/25 07/13/25 His tory meclizine 25 mg tablet 12.5 mg (1/2 x 25 mg) PO BID PRN 0 05/24/25 Unknown Rx dizziness #30 tabs rosuvastatin 20 mg tablet 20 mg PO QDAY 05/24/25 07/13/25 Hi story Allergy/AdvReac Type Severity Reaction Status Date / Time Milk Containing Products Allergy throat Verified 07/14/25 07:47 (Dairy) tightens escitalopram (From Lexapro) AdvReac suicidal Verified 07/14/25 07:47 ideation Family History (Updated 07/14/25 @ 11:[address] Ger Kimbrough DO) Sister Diabetes Cancer Mother Diabetes Arthritis Heart disease Father Hypertension Arthritis Colon cancer High cholesterol CVA (cerebral vascular accident) Brother Kidney disease Surgical History H/O heart artery stent History of foot surgery Hx of arthroscopy of shoulder History of cholecystectomy right finger cyst excision H/O arthroscopy of shoulder Social History household members: spouse Smoking Status: Never smoker second hand exposure: No alcohol intake: current substance use type: does not use what type of physical activity do you participate in: walking and other frequency: 3-4 times per week ne/restoration: Pent[employer]ost[employer] seatbelt use: always ROS ROS ED Constitutional Constitutional ED: Denies chills or fever(s) Eyes Eyes: Reports change in vision; Denies blurry vision ENT ENT ED: Denies rhinorrhea or sore throat Cardiovascular Cardiovascular: Denies chest pain or palpitations Respiratory/Chest Respiratory/Chest: Denies cough or dyspnea Gastrointestinal Gastrointestinal: Denies nausea or vomiting Genitourinary Genitourinary ED: Denies dysuria or hematuria Musculoskeletal Musculoskeletal: Denies back pain or neck pain Integumentary Denies abscess or rash Neurologic Neurologic: Reports headache(s) and paresthesias LUE; Denies weakness Allergic/Immunologic Allergic/Immunologic ED: Denies mouth swelling or urticaria EXAM Physical Exam Const Vital Signs: 07/14/25 07:42 07/14/25 07:46 07/14/25 07:54 Temperature 98. (more content not included)... Normal [facility] Eosinophil percentageOrdered By: Ger Jason on 07-14-2025 Eosinophils/100 WBC (Bld) 3.6 % Normal 0-5 [facility] Comment on above: Performed By: #### L 499.0043 #### [facility] Laboratory [address], [place], [id number] Erythrocyte distribution wid th ratioOrdered By: Ger Jason on 07-14-2025 Erythrocyte distribution width (RBC) [Ratio] 13.9 % Normal 11.6-14.6 [facility] Comment on above: Performed By: #### L 499.0043 #### [facility] [address], [place], [id number] Erythrocyte distribution wid th standard deviationOrdered By: Ger Jason on 07-14-2025 Erythrocyte distribution width (RBC) [Ratio] 44.5 fl High 35.1-43.9 [facility] Glomerular filtration rate ( GFR) estimation/1.73 sq m using serum, plasma, or whole bOrdered By: Ger Jason on 07-14-2025 GFR/1.73 sq M.predicted among non-blacks MDRD (S/P/Bld) [Vol rate/Area] 92 mL/min/{1.73_m2} Normal >60 [facility] Comment on above: mL/min/1.73m2 CKD-EP I Creatinine Equation (2020) Result Comment: mL/m in/1.73m2 CKD-EPI Creatinine Equation (2020) Performed By: #### L 499.0043 #### [facility] Laboratory [address] [place], [address] [facility] deOrdered By: Ger Jason on 07-14-2025 Glucose [Mass/Vol] 172 mg/dL High 74-106 [facility] Comment on above: MANAGEMENT OF PATIEN T CARE PER NURSING PROTOCOL H AND P Exam - [place] 07-14-2025 H&P Exam - Hospitalist [facility] Medical Records Department [address] [place] [address] H P Exam - Hospitalist 07/14/25 1142 MR#: [id number] Acct: [id number] Name: COLIN PENN Rep #: [id number] : 1960 65 From: Ger Kimbrough DO PCP: Dr. Wily Carlton, DO Status:ADM DANIE Location: [place] [address] HPI - General General Date of Admission: 07/14/25 Date of Service: 07/14/25 Chief Complaint: paresthesia. HPI Narrative COLIN PENN, is a 65 M who presents LUE paresthesia. When he got up today he had noticed visual changes and he was unclear if it was in 1 eye or both eyes but resolved just spark pattern that led to a more of a generalized spreading light across his visual field. There was no zigzags or lightning bolts. He did not experience any headaches but that afterwards he experienced left-sided paresthesias. Patient has a M???ni???re's disease and notes that he just feels off and has had this since 2019 when he had COVID at that time. Presented emergency room and underwent a workup that was unremarkable. Symptoms are improving though he does complain of paresthesias in both arms at this time but no weakness in his arms. [facility] Medical History Hiatal hernia Osteoporosis DVT (deep venous thrombosis) Migraines Osteoarthritis High triglycerides History of blood clots Seasonal allergies History of DVT (deep vein thrombosis) Wears glasses High cholesterol Gastric reflux Non-smoker Cardiology follow-up encounter History of Holter monitoring History of echocardiogram History of stress test Asthma Hyperlipidemia GERD (gastroesophageal reflux disease) Insomnia Obesity Home Medications ???Medication ???Instructions ???Recorded ???Last Taken ???Type montelukast 10 mg tablet 10 mg PO DAILY PRN allergies 09/27 Unknown History (Singulair) azelastine 205.5 mcg (0.15 %) 1 spray intranasal BID PRN 3 Unknown History nasal spray allergies loratadine 10 mg tablet 10 mg PO DAILY 02/14/23 Unknown Hi story multivitamin with minerals-folic 1 tab PO DAILY 02/14/23 Unknown Hi story acid 12 mcg chewable tablet (Centrum Adults) famotidine 20 mg tablet 20 mg PO DAILY 03/14/23 Unknown Hi story aspirin 81 mg tablet 81 mg PO QDAY 05/24/25 Unknown His tory clopidogrel 75 mg tablet 75 mg PO QDAY 05/24/25 Unknown His tory ezetimibe 10 mg tablet 10 mg PO QDAY 05/24/25 Unknown His tory meclizine 25 mg tablet 12.5 mg (1/2 x 25 mg) PO BID PRN 0 05/24/25 Unknown Rx dizziness #30 tabs rosuvastatin 20 mg tablet 20 mg PO QDAY 05/24/25 Unknown His tory modafinil 100 mg tablet 100 mg PO BID 07/14/25 Unknown His tory Allergy/AdvReac Type Severity Reaction Status Date / Time Milk Containing Products Allergy throat Verified 07/14/25 07:47 (Dairy) tightens escitalopram (From Lexapro) AdvReac suicidal Verified 07/14/25 07:47 ideation Family History (Updated 07/14/25 @ 11:[address] Ger Kimbrough DO) Sister Diabetes Cancer Mother Diabetes Arthritis Heart disease Father Hypertension Arthritis Colon cancer High cholesterol CVA (cerebral vascular accident) Brother Kidney disease Surgical History H/O heart artery stent History of foot surgery Hx of arthroscopy of shoulder History of cholecystectomy right finger cyst excision H/O arthroscopy of shoulder Social History household members: spouse Smoking Status: Never smoker second hand exposure: No alcohol intake: current substance use type: does not use what type of physical activity do you participate in: walking and other frequency: 3-4 times per week ne/restoration: Pentecost[employer]ism seatbelt use: always ROS ROS Narrative All review of systems were negative except as mentioned above in the history of present illness and the other review of systems. Vital Signs Vital Signs Vital Signs: 07/14/25 07:42 07/14/25 07:46 07/14/25 07:54 Temperature 36.8 C 36.8 C Temperature Source Oral Oral Pulse Rate 99 78 Respiratory Rate 18 18 Blood Pressure 155/78 H 155/78 H Blood Pressure Mean 103 103 Pulse Ox 100 100 Oxygen Delivery Method Room Air Room Air Room Air 07/14/25 07:54 07/14/25 08:24 07/14/25 08:30 Temperature 36.8 C Temperature Source Oral Pulse Rate 78 99 94 Respiratory Rate 18 14 13 Blood Pressure 155/78 H 152/92 H 142/84 H Blood Pressure Mean 103 112 103 Pulse Ox 100 98 97 Oxygen Delivery Method Room Air Room Air Room Air 07/14/25 09:00 07/14/25 09:30 07/14/25 10:00 Temperature Temperature Source Pulse Rate 86 80 88 Respiratory Rate 16 12 Blood Pressure 136/81 H 125/81 H (more content not included)... Normal [facility] Hemoglobin measurementOrdere d By: Ger Jason on 07-14-2025 Hemoglobin (Bld) [Mass/Vol] 13.8 g/dL Normal 13.0-16.5 [facility] Comment on above: Performed By: #### L 499.0043 #### [facility] Laboratory [address], [address] Immature granulocytes/100 WB C Auto (Bld)Ordered By: Ger Jason on 07-14-2025 Immature granulocytes/100 WBC (Bld) 0.600 % 0.0-0.9 [facility] Comment on above: IG% - Immature Granu locytes (promyelocytes, myelocytes and metamyelocytes) > 1% indicates that a LEFT SHIFT is Present. International normalized rat io (INR) calculationOrdered By: Ger Jason on 07-14-2025 INR Coag (Bld) [Relative time] 1.0 {INR} [facility] L501.4021on 07-14-2025 Trop T High Sen < 6 Normal <=22 [facility] Comment on above: Performed By: #### L 499.0043 #### [facility] Laboratory [address] [place], [place], [address] MCV (mean corpuscular volume ) determinationOrdered By: Ger Jason on 07-14-2025 MCV (RBC) [Entitic vol] 88.0 fL Normal 80-94 [facility] Comment on above: Performed By: #### L 499.0043 #### [facility] [address] [place], [place], [address] Magnetic resonance imaging r eportOrdered By: Soy Lamar on 07-14-2025 Study report [facility] Imaging Services [address] [place], [place] [address] Brain without Contrast MR#: [id number] Acct: [id number] Name: COLIN PENN Rep #: [id number] : 1960 M 65 From: Willy Lamar MD PCP: Dr. Wily Carlton, Status: ADM DANIE Study:Brain without Contrast Date of Exam: 07/14/25 Exam# [id number] Ordering Dr: Ger Kimbrough DO PROCEDURE: BRAIN WITHOUT CONTRAST 07/14/2025 REASON FOR EXAM: LEFT SIDE PARESTHESIA TECHNIQUE: Procedure Code: MRIBR Modality: MR Procedure: BRAIN WITHOUT CONTRAST Multiplanar and multisequence images were obtained. COMPARISON: Earlier today's CT. FINDINGS: Diffusion-weighted images:Negative. ADC map: Negative. Gradient images: Negative. Cerebrum: Mild loss of cerebral volume. Negative for mass the frontal, parietal, temporal and occipital lobes negative. White matter: Negative for periventricular white matter changes. Negative for T2 lesions in the centrum semiovale. Cerebellum: Negative cerebellum. CSF pathways and ventricles: Negative. Negative for ventricular dilatation or obstruction. Basal ganglia and thalami: Negative. No acute infarctions. Brainstem: Midbrain, itz and medulla negative. Midline structures: The corpus callosum, pituitary fossa and cerebellar tonsils are negative. Limbic system: Medial temporal lobes and limbic system negative. Extra-axial spaces: Negative. Negative for subarachnoid, subdural or epidural hemorrhage. Orbital structures: Globes negative. Extraocular muscles negative. Paranasal sinuses: Mucosal disease in the ethmoid sinuses. Lesser mucosal disease in the maxillary and frontal sinuses. Remainder of the sinuses negative. Vascular structures: Normal intracranial flow voids including the superior sagittal sinus. Other: No abnormal enhancement. Remainder of exam negative. MRI/Brain without Contrast IMPRESSION: Negative MR of the brain. Negative for acute intracranial pathology. Diffuse paranasal sinus disease Reading Location: [place] [address] CC: Dr. Ger Kimbrough, DO; Dr. Wily Carlton DO ~ Research Program Coordinator: Signed [facility] Mean corpuscular hemoglobin (MCH) determinationOrdered By: Ger Jason on 07-14-2025 MCH (RBC) [Entitic mass] 29.1 pg Normal 27.0-32.0 [facility] Comment on above: Performed By: #### L 499.0043 #### [facility] Laboratory [address] [facility] [address] Mean corpuscular hemoglobin concentration (MCHC) determinationOrdered By: Ger Jason on 07-14-2025 MCHC (RBC) [Mass/Vol] 33.0 g/dL Normal 32-36 [facility] Comment on above: Performed By: #### L 499.0043 #### [facility] Laboratory [address] [facility] [address] Mean platelet volume determi nationOrdered By: Ger Jason on 07-14-2025 Platelet mean volume (Bld) [Entitic vol] 9.2 fL Normal 6.2-12.0 [facility] Comment on above: Performed By: #### L 499.0043 #### [facility] Laboratory [address] [facility] [address] Monocyte percentageOrdered B y: Ger Jason on 07-14-2025 Monocytes/100 WBC (Bld) 7.2 % Normal 0-10 [facility] Comment on above: Performed By: #### L 499.0043 #### [facility] Laboratory [address] [place], [address] Neutrophil percentageOrdered By: Ger Jason on 07-14-2025 Neutrophils/100 WBC (Bld) 43.1 % Low 47-70 [facility] Comment on above: Performed By: #### L 499.0043 #### [facility] Laboratory [address] [place], [address] Nucleated red blood cell per centageOrdered By: Ger Jason on 07-14-2025 Nucleated RBC/100 WBC (Bld) [Ratio] 0 % 0-5 [facility] Partial Thromboplast Timeon 07-14-2025 aPTT Coag (Bld) [Time] 23.7 s Low 24.1-36.2 [facility] Comment on above: Performed By: #### L 499.0043 #### [facility] Laboratory [address] [place], [address] Platelet countOrdered By: Lance Jason on 07-14-2025 Platelets (Bld) [#/Vol] 187 10*3/uL Normal 150-450 [facility] Comment on above: Performed By: #### L 499.0043 #### [facility] Laboratory [address] [place], [address] Potassium measurement (mass/ volume)Ordered By: Ger Jason on 07-14-2025 Potassium (Unsp spec) [Mass/Vol] 3.8 mmol/L 3.3-5.1 [facility] Prothrombin Time w/INRon INR Coag (PPP) [Relative time] 1.0 {INR} Normal [facility] Comment on above: Performed By: #### L 499.0043 #### [facility] Laboratory [address] [place], [address] Prothrombin timeOrdered By: Ger Jason on 07-14-2025 PT Coag (PPP) [Time] 12.9 s Normal 11.7-14.9 [facility] Comment on above: Performed By: #### L 499.0043 #### [facility] [address] [place], [address] STROKE Brain/Head without Co nton 07-14-2025 STROKE Brain/Head without Cont [facility] Imaging Services [address] [place], [place] [address] STROKE Brain/Head without Cont MR#: [id number] Acct: [id number] Name: COLIN PENN Rep #: [id number] : 1960 M 65 From: Sarwat Silvestre MD PCP: Dr. Wily Carlton, Status: REG ER Study: STROKE Brain/Head without Cont Date of Exam: 0 07/14/25 Exam# [id number] Ordering Dr: Ger Jason DO EXAM: NONCONTRAST CT SCAN OF THE HEAD CLINICAL HISTORY: Neuro deficit, stroke COMPARISON: June 20, 2022 TECHNIQUE: Serial axial series through the head were obtained without contrast. 2-D coronal and sagittal reformats were then obtained. FINDINGS: Brain: There is no acute large territorial infarct, intracranial hemorrhage, midline shift or mass effect. There are atherosclerotic vascular calcifications involving the bilateral carotid siphons. The sella and pineal gland regions appear unremarkable. There is no evidence of cerebellar tonsillar herniation. Ventricles: There is no acute hydrocephalus. Basilar cisterns are patent. Paranasal sinuses: Bilateral ethmoid sinus disease is noted. Mucosal thickening is visible in the right aspect of the sphenoid sinus. Mastoid air cells: Well-aerated. Calvarium: The bony calvarium is intact. Orbits: The bilateral globes are symmetric, without retrobulbar compressive mass lesion or hemorrhage. CT/STROKE Brain/Head without Cont IMPRESSION: Bilateral ethmoid sinus disease is noted. Mucosal thickening is visible in the right aspect of the sphenoid sinus. No acute intracranial pathology. Reading Location: [facility] [place] [facility] CC: Dr. Ger Jason DO; Dr. Wily Carlton DO Research Program Coordinator: Signed Normal [facility] STROKE CTA Head AND Neck W/C onon 07-14-2025 STROKE CTA Head AND Neck W/Con [facility] Imaging Services [address] [place], [place] [address] STROKE CTA Head AND Neck W/Con MR#: [id number] Acct: [id number] Name: COLIN PENN Rep #: [id number] : 1960 M 65 From: Sarwat Silvestre MD PCP: Dr. Wily Carlton DO Status: REG ER Study: STROKE CTA Head AND Neck W/Con Date of Exam: 0 07/14/25 Exam# [id number] Ordering Dr: Ger Jason DO PROCEDURE: STROKE CTA HEAD AND NECK W/CON 07/14/2025 REASON FOR EXAM: NEURO DEFICIT, ACUTE, STROKE SUSPECTED TECHNIQUE: Procedure Code: CTCTA.ST.HN Modality: CT Procedure: STROKE CTA HEAD AND NECK W/CON Multiplanar Sagittal and Coronal images were obtained. CONTRAST: 100 cc Isovue 370 One or more dose reduction techniques were used (e.g., Automated exposure control, adjustment of the mA and/or kV according to patient size, use of iterative reconstruction technique). RADIATION DOSE SUMMARY: DLP: 705 mGycm COMPARISON: None FINDINGS: Aortic Arch: Unremarkable Brachiocephalic and Subclavians: Patent RIGHT Carotid: Right CCA: Patent Right ICA: Patent Maximum stenosis (NASCET): 0 % Right ECA: Patent LEFT Carotid: Left CCA: Patent Left ICA: Patent Maximum stenosis (NASCET): 0 % Left ECA: Patent Vertebrals: Patent RIGHT Vertebral: Patent LEFT Vertebral: Patent Anatomy: There is heavily calcified plaque is noted in the intracranial portion of the right and left ICA in the carotid siphon, which partly obscures the lumen with no evidence of occlusion Aneurysm or avm: None Anterior cerebral arteries: Patent Middle cerebral arteries: Patent Basilar artery: Patent Posterior cerebral arteries: Patent Other major branches of the posterior circulation: Patent Major venous structures: Patent Other findings: Neck: Clear lungs: Clear bones: There is no acute bony abnormality CT/STROKE CTA Head AND Neck W/Con IMPRESSION: There is heavily calcified plaque is noted in the intracranial portion of the right and left ICA in the carotid siphon, which partly obscures the lumen with no evidence of occlusion. Reading Location: [facility] CC: Dr. Ger Jason, DO; Dr. Wily Carlton DO Research Program Coordinator: Signed Normal [facility] Serum creatinine measurement (mass/volume)Ordered By: Ger Jason on 07-14-2025 Creatinine [Mass/Vol] 0.93 mg/dL Normal 0.70-1.20 [facility] Comment on above: Performed By: #### L 499.0043 #### [facility] Laboratory [address] [place], [address] Serum glucose measurement (m ass/volume)Ordered By: Ger Jason on 07-14-2025 Glucose [Mass/Vol] 188 mg/dL High 70-99 [facility] Comment on above: Performed By: #### L 499.0043 #### [facility] Laboratory [address] [place], [address] Serum or plasma calcium meek urement (mass/volume)Ordered By: Ger Jason on 07-14-2025 Calcium [Mass/Vol] 8.6 mg/dL Normal 7.6-11.0 [facility] Comment on above: Performed By: #### L 499.0043 #### [facility] Laboratory [address] [place], [address] Serum or plasma urea nitroge n measurement (mass/volume)Ordered By: Ger Jason on 07-14-2025 Urea nitrogen [Mass/Vol] 16 mg/dL Normal 4-19 [facility] Comment on above: Performed By: #### L 499.0043 #### [facility] Laboratory [address] [place], [address] Sodium levelOrdered By: Ger Jason on 07-14-2025 Sodium [Moles/Vol] 139 mmol/L Normal 133-145 [facility] Comment on above: Performed By: #### L 499.0043 #### [facility] Laboratory [address] [place], [address] Troponin T HS 2 HRon 025 Trop T High Sen 6 ng/L Normal <=22 [facility] Comment on above: Result Comment: Hemo lysis present, Results??could be affected. ?? Performed By: #### L 499.0042 #### [facility] Laboratory [address] [place], [address] Troponin T HS 4 HRon 025 Trop T High Sen < 6 Normal <=22 [facility] Comment on above: Performed By: #### L 499.0043 #### [facility] Laboratory [address] [place], [address] Troponin T.cardiac [Mass/vol ume] in Serum or Plasma by High sensitivity methodOrdered By: Ger Jason on 07-14-2025 Troponin T.cardiac High sensitivity method [Mass/Vol] < 6 ng/L <22 [facility] Troponin T.cardiac High sensitivity method [Mass/Vol] 6 ng/L <22 [facility] Comment on above: Hemolysis present, R esults could be affected. White blood cell (WBC) count Ordered By: Ger Jason on 07-14-2025 WBC (Bld) [#/Vol] 4.8 10*3/uL Normal 4.4-11.0 [facility] Comment on above: Performed By: #### L 499.0043 #### [facility] [address] [place], [address] B12on 07-12-2025 Cobalamin (Vitamin B12) [Mass/Vol] 1091 pg/mL High 211-911 [facility] Comment on above: Performed By: #### C MP, GFR, PSA, A1C, LIPID #### [facility] [address] [place] [id number] Karoline 07-12-2025 Ferritin [Mass/Vol] 29.0 ng/mL Normal 26.0-388.0 [facility] Comment on above: Performed By: #### B 12, HCV1, FOL #### [place] [address] #### MG, FERR, TSHR, VIDH, FES #### [place] [address] FESon 07-12-2025 Iron [Mass/Vol] 64 ug/dL Low 65-175 [facility] Comment on above: Performed By: #### B 12, HCV1, FOL #### [place] [address] #### MG, FERR, TSHR, VIDH, FES #### [place] [address] Iron Sat 18 % Normal [facility] Comment on above: Performed By: #### B 12, HCV1, FOL #### [place] [address] #### MG, FERR, TSHR, VIDH, FES #### [place] [address] TIBC 351 mcg/dL Normal 250-450 [facility] Comment on above: Performed By: #### B 12, HCV1, FOL #### [place] [address] #### MG, FERR, TSHR, VIDH, FES #### [address] [address] FOLon 07-12-2025 Folate 25.46 ng/mL High 5.38-24.00 [facility] Comment on above: Performed By: #### C MP, GFR, PSA, A1C, LIPID #### [address] [address] HCVon 07-12-2025 Hep C Ab Non-Reactive Normal Non-Reactiv e [facility] Comment on above: Performed By: #### C MP, GFR, PSA, A1C, LIPID #### [place] [address] [place], [place] [address] Hep C Ab Int See Interp Normal [facility] Comment on above: Result Comment: Clinical Interpretation: Nonreactive: Samples with a value < 0.80 are considered nonreactive (negative) for antibodies to HCV. A negative test result does not exclude the possibility of exposure to or infection with HCV. HCV antibodies may be undetectable in some stages of the infection and in some clinical conditions. Performed By: #### C MP, GFR, PSA, A1C, LIPID #### [facility] [address] [place], [place] [address] LABORATORYOrdered By: [employer] SYSTEM on 07-12-2025 25-hydroxyvitamin D3 [Mass/Vol] 26.3 ng/mL Invalid Interpretation Code AO ADM SS Comment on above: Interpretive Data: I nterpretive Values Based on Total 25(OH) Vitamin D: Deficient <20 ng/mL Insufficient 20 - <30 ng/mL Sufficient 30-100 ng/mL Cobalamin (Vitamin B12) [Mass/Vol] 1091 pg/mL High 211 - 911 pg/mL ADM SS Ferritin [Mass/Vol] 29.0 ng/mL Normal 26.0 - 388.0 ng/mL AO ADM SS Folate [Mass/Vol] 25.46 ng/mL High 5.38 - 24.00 ng/mL ADM SS Iron [Mass/Vol] 64 ug/dL Low 65 - 175 mcg/dL AO ADM SS Iron binding capacity [Mass/Vol] 351 mcg/dL Normal 250 - 450 mcg/dL AO ADM SS Iron Sat 18 % Invalid Interpretation Code AO ADM SS Magnesium [Mass/Vol] 2.3 mg/dL Normal 1.8 - 2 .4 mg/dL AO ADM SS TSH Qn 1.03 m[IU]/L Normal 0.36 - 3.74 mcIU/mL AO ADM SS LABORATORYOrdered By: Lesli Hu on 07-12-2025 HCV Ab IA Ql Non-Reactive (07/12/25 12:24 PM) Normal Non-Reactiv e ADM SS HCV Ab IA Ql See Interp 2 *NA* (07/12/25 12:24 PM) Invalid Interpretation Code Chemistry S Comment on above: Result Comment: Clinical Interpretation: Nonreactive: Samples with a value < 0.80 are considered nonreactive (negative) for antibodies to HCV. A negative test result does not exclude the possibility of exposure to or infection with HCV. HCV antibodies may be undetectable in some stages of the infection and in some clinical conditions. MGon 07-12-2025 Magnesium [Mass/Vol] 2.3 mg/dL Normal 1.8-2.4 [facility] Comment on above: Performed By: #### C MP, GFR, PSA, A1C, LIPID #### [address] [address] TSHRon 07-12-2025 TSH Qn 1.03 m[IU]/L Normal 0.36-3.74 [facility] Comment on above: Performed By: #### C MP, GFR, PSA, A1C, LIPID #### [address] [address] VIDHon 07-12-2025 Vit. D 25-Hydroxy 26.3 ng/mL Normal [facility] Comment on above: Result Comment: Inte rpretive Values Based on Total 25(OH) Vitamin D: Deficient <20 ng/mL Insufficient 20 - <30 ng/mL Sufficient 30-100 ng/mL Performed By: #### B 12, HCV1, FOL #### [place] [address] #### MG, FERR, TSHR, VIDH, FES #### [address] [address] Amphetamine detection with 1 000 ng/mL as cutoffOrdered By: Colby Dove on 06-25-2025 Amphetamines Screen method >1000 ng/mL Ql (U) Negative < 200 ng/mL [facility] No Panel InformationOrdered By: Colby Dove on 06-25-2025 Urine Buprenorphine Qualitative Negative < 200 ng/mL [facility] Urine Oxycodone Screen Negative < 100 ng/mL [facility] Quantitative urine opiates m easurementOrdered By: Colby Dove on 06-25-2025 Opiates Ql (U) Negative < 300 ng/mL [facility] Screening urine fentanyl kate surementOrdered By: Colby Dove on 06-25-2025 fentaNYL Screen Ql (U) Negative <5 ng/mL [facility] Comment on above: CONFIRMATORY TESTING FOR ALL POSITIVE URINE DRUG SCREENRESULTS WILL ONLY BE SENT OUT UPON PHYSICIAN ORDER. Ivanna Pro Urine Drug Screen methods provide only preliminaryanalytical test results. A more specific alternate chemicalmethod must be used in order to obtain a confirmedanalytical result. Gas chromatography/mass spectrometery(GC/MS) is the preferred confirmatory method. Clinicalconsideration and professional judgement should be appliedto any drug of abuse test result, particularly whenpreliminary positive results are used. Urine TCA testing must be ordered separately. Use test mnemonic: UTCA Urine Drug Screen (VISTA)on 06-25-2025 AMPHETAMINES Negative Normal <1000 ng/mL [facility] Comment on above: Order Comment: . Performed By: #### L 505.5000 #### [facility] [address] [place] [address] BARBITIURATES Negative Normal < 200 ng/mL [facility] Comment on above: Order Comment: . Performed By: #### L 505.5000 #### [facility] [address] [facility] [address] BENZODIAZIPINE Negative Normal < 200 ng/mL [facility] Comment on above: Order Comment: . Performed By: #### L 505.5000 #### [facility] [address] [place], [address] BUP Ur Drug Scr Negative Normal < 200 ng/mL [facility] Comment on above: Order Comment: . Performed By: #### L 505.5000 #### [facility] [address] [facility] [address] COCAINE Negative Normal < 300 ng/mL [facility] Comment on above: Order Comment: . Performed By: #### L 505.5000 #### [facility] [address] [place] [id number] Fentanyl Negative Normal <5 ng/mL [facility] Comment on above: Order Comment: . Result Comment: CONF IRMATORY TESTING FOR ALL POSITIVE URINE DRUG SCREEN RESULTS WILL ONLY BE SENT OUT UPON PHYSICIAN ORDER. Ivanna Pro Urine Drug Screen methods provide only preliminary analytical test results. A more specific alternate chemical method must be used in order to obtain a confirmed analytical result. Gas chromatography/mass spectrometery (GC/MS) is the preferred confirmatory method. Clinical consideration and professional judgement should be applied to any drug of abuse test result, particularly when preliminary positive results are used. Urine TCA testing must be ordered separately. Use test mnemonic: UTCA Performed By: #### L 505.5000 #### [facility] [address] [facility] [address] METHADONE Negative Normal < 300 ng/mL [facility] Comment on above: Order Comment: . Performed By: #### L 505.5000 #### [facility] [address] [facility] [address] OPIATES Negative Normal < 300 ng/mL [facility] Comment on above: Order Comment: . Performed By: #### L 505.5000 #### [facility] [address] [facility] [address] OXYCODONE Negative Normal < 100 ng/mL [facility] Comment on above: Order Comment: . Performed By: #### L 505.5000 #### [facility] [address] [place], [address] PCP Negative Normal < 25 ng/mL [facility] Comment on above: Order Comment: . Performed By: #### L 505.5000 #### [facility] [address] [facility] [address] THC Negative Normal < 50 ng/mL [facility] Comment on above: Order Comment: . Performed By: #### L 505.5000 #### [facility] [address] [facility] [address] Urine benzodiazepine levelOr dered By: Colby Dove on 06-25-2025 Benzodiazepines Ql (U) Negative < 200 ng/mL [facility] Urine cocaine levelOrdered B y: Colby Dove on 06-25-2025 Cocaine Ql (U) Negative < 300 ng/mL [facility] Urine snrct-[id number]-iegmznospuwnyf abinol (THC) measurementOrdered By: Colby Dove on 06-25-2025 Cannabinoids Screen Ql (U) Negative < 50 ng/mL [facility] Urine phencyclidine (PCP) de tectionOrdered By: Colby Dove on 06-25-2025 Phencyclidine Ql (U) Negative < 25 ng/mL [facility] Neurology Visit Reporton Neurology Visit Report [facility] [address], [address] [place] [address] OFFICE VISIT Date of Service: 05/24/25 MR#: [id number] Acct: [id number] Name: COLIN PENN Rep #: [id number] : 1960 Provider: Dr. Rc moseley MD Age/Sex: 64/M Location[place] [facility] [place] Status: Signed with Addenda ADDENDUM by Dr. Rc Estes MD on 05/26/25 at 1731 Addendum Addendum (05/26/2025): The patient reported having some increased lightheadedness this morning and impaired sleep and raises concern that these may be side effects to his recent B12 injection. He is not noticing any improvement in his fatigue or energy level after his B12 injection. It is possible that the symptoms are a side effect of his B12 injection. Further B12 injections will not been administered. He reports having some improvement of the lightheadedness that he experienced earlier today. 05/26/25 1731 Date Rc Estes MD cc: * Signed HPI [facility] Chief Complaint: Details: Interim History: Colin returns for follow-up visit. He has a history of hyperlipidemia. In 2019, he had an upper respiratory tract infection that manifested with cough, fever, impaired taste and smell sensation,fatigue and left ear pressure pain. He stated that he had a COVID-19 test at that time which was negative however he suspects this may have been a false negative. He also had tachycardia during this illness and he subsequently had episodes of tachycardia as well as bradycardia that had continued to occur and these often have occurred without clear precipitating events or activity. A 30-day cardiac event monitor in September 2022 revealed a 5 beat run of wide-complex tachycardia (nonsustained ventricular tachycardia). 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 He saw an cardiology bankruptcy assistant and an ablation procedure was offered however the patient decided not to pursue this. The patient reported that he was found to have some coronary artery disease and underwent a coronary artery stent placement in 2023. He takes aspirin 81 mg daily and clopidogrel. Since his upper respiratory tract infection in 2019, he has had episodic disequilibrium. Along with his disequilibrium, he has also experienced vague lightheadedness. Meclizine has been of some benefit in reducing the severity of his disequilibrium. 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 Hydroxyzine caused anxiety and was discontinued. Loratadine was not of benefit for his dizziness. Vestibular rehabilitation was of some initial benefit and he has continued to perform vestibular exercises however subsequent vestibular rehabilitation since his last visit in June 2024 was not of benefit. He has had nearly continuous left ear tinnitus since his upper respiratory tract infection in 2019. He underwent ENT evaluation (by Dr. Loki Jain) and was found to have mild left-sided hearing loss. This hearing loss may fluctuate to some degree. He denied having headaches, vision loss, numbness, weakness, neck pain or low back pain. Emotional stress appears to be a trigger for disequilibrium which had occurred multiple times per day in the past. Since 2022, his episodes of disequilibrium have overall decreased in frequency and have occurred several times per week. Individual episodes last about a 1 minute. Although he may experience episodes of disequilibrium when sitting, his disequilibrium is more likely to occur, or more likely to become pronounced, with movement. He had a COVID-19 infection in February 2022 that manifested with fever, fatigue, cough, and impaired taste sensation. He previously had some drainage from the left ear which he described as dry flaking. His ear pain that he had in 2019 resolved. A head MRI in 2021 was unremarkable. Buspirone caused insomnia. He has had insomnia characterized by awakening multiple times during the night. He does not feel well rested when he awakens in the morning. He has been observed to snore at night. He feels sleepy during the day. He has been diagnosed with obstructive sleep apnea and is on BiPAP. He continues to experience multiple awakenings during the night. He has fatigue. Since around February 2025 he has been experiencing intermittent numbness and tingling in the hands that occurs when he is grasping a steering wheel. Physical Exam: Neuro: The patient is awake and alert and responds appropriately; speech is fluent; EOMI; no nystagmus; decreased soft touch is noted in the left index finger and right fifth finger; motor strength is 5/5 in the abductor pollicis brevis bilaterally and first dorsal interosseous bilaterally Extremities: Tinel's sign is negative at the wrist and positive at th (more content not included)... Normal [facility] .Auto Diffon 03-28-2025 Basophil, Absolute 0.0 10 3/mcL Normal 0.0-0.[address] [facility] Comment on above: Performed By: #### A DIFF, CBC, BMP, MG, ANEU, GFR ####[place] [address] [place] [address] Basophils/100 WBC (Bld) 0.4 % Normal 0.0-2.5 [facility] Comment on above: Performed By: #### A DIFF, CBC, BMP, MG, ANEU, GFR ####[place] [address] [place] [address] Eosinophil, Absolute 0.1 10 3/mcL Normal 0.0-0.7 [facility] Comment on above: Performed By: #### A DIFF, CBC, BMP, MG, ANEU, GFR ####[place] [address] [place] [address] Eosinophils/100 WBC (Bld) 1.9 % Normal 0.0-6.0 [facility] Comment on above: Performed By: #### A DIFF, CBC, BMP, MG, ANEU, GFR ####[place] [address] [place] [address] Lymphocyte, Absolute 2.2 10 3/mcL Normal 0.9-4.3 [facility] Comment on above: Performed By: #### A DIFF, CBC, BMP, MG, ANEU, GFR ####[address] [address] Lymphocytes/100 WBC (Bld) 39.9 % Normal 20.0-40.0 [facility] Comment on above: Performed By: #### A DIFF, CBC, BMP, MG, ANEU, GFR ####[address] [address] Monocyte, Absolute 0.6 10 3/mcL Normal 0.1-1.[address] [facility] Comment on above: Performed By: #### A DIFF, CBC, BMP, MG, ANEU, GFR ####[address] [address] Monocytes/100 WBC (Bld) 10.0 % Normal 2.0-13.0 [facility] Comment on above: Performed By: #### A DIFF, CBC, BMP, MG, ANEU, GFR ####[address] [address] Neutrophils/100 WBC (Bld) 47.8 % Low 50.0-75.0 [facility] Comment on above: Performed By: #### A DIFF, CBC, BMP, MG, ANEU, GFR ####[address] [address] .GFRon 03-28-2025 Estimated Glomerular Filtration Rate 94 ml/min/1.73sqm Normal [facility] Comment on above: Result Comment: Stages of Chronic Kidney Disease (CKD) Stage Description eGFR(ml/min/1.73 sq.m.) CKD 1 Normal kidney function or >=90 normal kindney function with possible kidney damage (ex. Proteinuria) CKD 2 Kidney damage with mild loss 60-89 of kidney function CKD 3a Mild to moderate loss of kidney 45-59 function CKD 3b Moderate to severe loss of 30-44 of kindey function CKD 4 Severe loss of kidney function 15-29 CKD 5 Kidney failure <15 Note: (go live 2024) the eGFR calculation was updated to the 2020 CKD-EPI creatinine equation without a race factor to calculate the eGFR results. Performed By: #### A DIFF, CBC, BMP, MG, ANEU, GFR ####[address] [address] .NEUABSon 03-28-2025 Neutrophil, Absolute 2.6 10 3/mcL Normal 2.3-8.1 [facility] Comment on above: Performed By: #### A DIFF, CBC, BMP, MG, ANEU, GFR ####[address] [address] BMPon 03-28-2025 BUN/Creatinine Ratio 15.4 ratio Normal 10.0-22.[address] [facility] Comment on above: Performed By: #### A DIFF, CBC, BMP, MG, ANEU, GFR ####[place] [address] Calcium [Mass/Vol] 9.0 mg/dL Normal 8.7-10.4 [facility] Comment on above: Performed By: #### A DIFF, CBC, BMP, MG, ANEU, GFR ####[place] [address] Chloride [Moles/Vol] 107 mmol/L Normal 98-[address] [facility] Comment on above: Performed By: #### A DIFF, CBC, BMP, MG, ANEU, GFR ####[place] [address] CO2 [Moles/Vol] 26 mmol/L Normal 22-32 [facility] Comment on above: Performed By: #### A DIFF, CBC, BMP, MG, ANEU, GFR ####[place] [address] Creatinine [Mass/Vol] 0.91 mg/dL Normal 0.60-1.40 [facility] Comment on above: Result Comment: Test ing performed on Market6 analyzer using enzymatic creatinine methodology. Performed By: #### A DIFF, CBC, BMP, MG, ANEU, GFR ####[place] [address] Electrolyte Balance 7.0 mEq/L Normal 4.0-15.0 [facility] Comment on above: Performed By: #### A DIFF, CBC, BMP, MG, ANEU, GFR ####[place] [address] Glucose [Mass/Vol] 109 mg/dL Normal 82-115 [facility] Comment on above: Performed By: #### A DIFF, CBC, BMP, MG, ANEU, GFR ####[place] [address] Potassium [Moles/Vol] 4.1 mmol/L Normal 3.5-5.0 [facility] Comment on above: Performed By: #### A DIFF, CBC, BMP, MG, ANEU, GFR ####[place] [address] Sodium [Moles/Vol] 140 mmol/L Normal 136-145 [facility] Comment on above: Performed By: #### A DIFF, CBC, BMP, MG, ANEU, GFR ####[place] [address] Urea nitrogen [Mass/Vol] 14.0 mg/dL Normal 8.0-22.0 [facility] Comment on above: Performed By: #### A DIFF, CBC, BMP, MG, ANEU, GFR ####[place] [address] CBCon 03-28-2025 Erythrocyte distribution width (RBC) [Ratio] 13.7 % Normal 11.5-15.5 [facility] Comment on above: Performed By: #### A DIFF, CBC, BMP, MG, ANEU, GFR ####[place] [address] Hematocrit (Bld) [Volume fraction] 47.5 % Normal 40.0-52.0 [facility] Comment on above: Performed By: #### A DIFF, CBC, BMP, MG, ANEU, GFR ####[place] [address] Hgb 16.0 G/dL Normal 13.0-17.5 [facility] Comment on above: Performed By: #### A DIFF, CBC, BMP, MG, ANEU, GFR ####[place] [address] MCH (RBC) [Entitic mass] 30.8 pg Normal 27.0-33.0 [facility] Comment on above: Performed By: #### A DIFF, CBC, BMP, MG, ANEU, GFR ####[place] [address] MCHC 33.7 G/dL Normal 32.0-36.0 [facility] Comment on above: Performed By: #### A DIFF, CBC, BMP, MG, ANEU, GFR ####[place] [address] MCV (RBC) [Entitic vol] 91.4 fL Normal 81.0-100.0 [facility] Comment on above: Performed By: #### A DIFF, CBC, BMP, MG, ANEU, GFR ####[place] [address] Platelet 187 10 3/mcL Normal 150-450 [facility] Comment on above: Performed By: #### A DIFF, CBC, BMP, MG, ANEU, GFR ####[place] [address] Platelet mean volume (Bld) [Entitic vol] 7.8 fL Normal 6.4-10.5 [facility] Comment on above: Performed By: #### A DIFF, CBC, BMP, MG, ANEU, GFR ####[place] [address] RBC 5.19 10 6/mcL Normal 4.50-6.00 [facility] Comment on above: Performed By: #### A DIFF, CBC, BMP, MG, ANEU, GFR ####[place] [address] WBC 5.5 10 3/mcL Normal 4.5-10.8 [facility] Comment on above: Performed By: #### A DIFF, CBC, BMP, MG, ANEU, GFR ####[place] [address] LABORATORYOrdered By: SYSTEM SYSTEM on 03-28-2025 Basophils (Bld) [#/Vol] 0.0 103/mcL Normal 0.0 - 0.3 10^3/mcL AH Workflow SS Basophils/100 WBC (Bld) 0.4 % Normal 0.0 - 2.5 % AH Workflow SS Calcium [Mass/Vol] 9.0 mg/dL Normal 8.7 - 10. 4 mg/dL ADM SS Chloride [Moles/Vol] 107 mmol/L Normal 98 - 11 0 mEq/L ADM SS CO2 [Moles/Vol] 26 mmol/L Normal 22 - 32 mEq/L ADM SS Creatinine [Mass/Vol] 0.91 mg/dL Normal 0.60 - 1.40 mg/dL ADM SS Comment on above: Interpretive Data: T esting performed on [employer]6 analyzer using enzymatic creatinine methodology. Electrolyte Balance 7.0 mEq/L Normal 4.0 - 15 .0 mEq/L ADM SS Eosinophils (Bld) [#/Vol] 0.1 103/mcL Normal 0.0 - 0.7 10^3/mcL Workflow SS Eosinophils/100 WBC (Bld) 1.9 % Normal 0.0 - 6.0 % Workflow SS Erythrocyte distribution width (RBC) [Ratio] 13.7 % Normal 11.5 - 15.5 % Workflow SS Estimated Glomerular Filtration Rate 94 ml/min/1.73sqm Invalid Interpretation Code ADM SS Comment on above: Interpretive Data: Stages of Chronic Kidney Disease (CKD) Stage Description eGFR(ml/min/1.73 sq.m.) CKD 1 Normal kidney function or >=90 normal kindney function with possible kidney damage (ex. Proteinuria) CKD 2 Kidney damage with mild loss 60-89 of kidney function CKD 3a Mild to moderate loss of kidney 45-59 function CKD 3b Moderate to severe loss of 30-44 of kindey function CKD 4 Severe loss of kidney function 15-29 CKD 5 Kidney failure <15 Note: (go live 2024) the eGFR calculation was updated to the 2020 CKD-EPI creatinine equation without a race factor to calculate the eGFR results. Glucose [Mass/Vol] 109 mg/dL Normal 82 - 115 mg/dL ADM SS Hematocrit (Bld) [Volume fraction] 47.5 % Normal 40.0 - 52.0 % Workflow SS Hemoglobin (Bld) [Mass/Vol] 16.0 G/dL Normal 13.0 - 17.5 G/dL Workflow SS Lymphocytes (Bld) [#/Vol] 2.2 103/mcL Normal 0.9 - 4.3 10^3/mcL Workflow SS Lymphocytes/100 WBC (Bld) 39.9 % Normal 20.0 - 40.0 % AH Workflow SS Magnesium [Mass/Vol] 2.2 mg/dL Normal 1.6 - 2 .4 mg/dL AH ADM SS MCH (RBC) [Entitic mass] 30.8 pg Normal 27.0 - 33.0 pg AH Workflow SS MCHC 33.7 G/dL Normal 32.0 - 36.0 G/dL AH Workflow SS MCV (RBC) [Entitic vol] 91.4 fL Normal 81.0 - 100.0 fL AH Workflow SS Monocytes (Bld) [#/Vol] 0.6 103/mcL Normal 0.1 - 1.4 10^3/mcL AH Workflow SS Monocytes/100 WBC (Bld) 10.0 % Normal 2.0 - 13.0 % AH Workflow SS Neutrophils (Bld) [#/Vol] 2.6 103/mcL Normal 2.3 - 8.1 10^3/mcL AH Workflow SS Neutrophils/100 WBC (Bld) 47.8 % Low 50.0 - 75.0 % AH Workflow SS Platelet mean volume (Bld) [Entitic vol] 7.8 fL Normal 6.4 - 10.5 fL AH Workflow SS Platelets (Bld) [#/Vol] 187 103/mcL Normal 150 - 450 10^3/mcL AH Workflow SS Potassium [Moles/Vol] 4.1 mmol/L Normal 3.5 - 5.0 mEq/L AH ADM SS RBC (Bld) [#/Vol] 5.19 106/mcL Normal 4.50 - 6.0 0 10^6/mcL AH Workflow SS Sodium [Moles/Vol] 140 mmol/L Normal 136 - 145 mEq/L ADM SS Urea nitrogen [Mass/Vol] 14.0 mg/dL Normal 8.0 - 22.0 mg/dL ADM SS Urea nitrogen/Creatinine [Mass ratio] 15.4 ratio Normal 10.0 - 22.0 ratio ADM SS WBC (Bld) [#/Vol] 5.5 103/mcL Normal 4.5 - 10.8 10^3/mcL Workflow SS MGon 03-28-2025 Magnesium [Mass/Vol] 2.2 mg/dL Normal 1.6-2.[address] [facility] Comment on above: Performed By: #### A DIFF, CBC, BMP, MG, ANEU, GFR ####[address] [address] .Auto Diffon 03-27-2025 Basophil, Absolute 0.0 10 3/mcL Normal 0.0-0.[address] [facility] Comment on above: Performed By: #### A DIFF, TROPHS, CBC, MDW, MG, GFR, PBNP, ANEU, BMP #### [place] [address] Eosinophil, Absolute 0.1 10 3/mcL Normal 0.0-0.7 [facility] Comment on above: Performed By: #### A DIFF, TROPHS, CBC, MDW, MG, GFR, PBNP, ANEU, BMP #### [place] [address] Lymphocyte, Absolute 1.7 10 3/mcL Normal 0.9-4.3 [facility] Comment on above: Performed By: #### A DIFF, TROPHS, CBC, MDW, MG, GFR, PBNP, ANEU, BMP #### [place] [address] Monocyte, Absolute 0.6 10 3/mcL Normal 0.1-1.[address] [facility] Comment on above: Performed By: #### A DIFF, TROPHS, CBC, MDW, MG, GFR, PBNP, ANEU, BMP #### [place] [address] .Auto DiffOrdered By: SYSTEM SYSTEM on 03-27-2025 Basophils/100 WBC (Bld) 0.5 % Normal 0.0-2.5 A H Workflow SS Comment on above: Performed By: #### A DIFF, TROPHS, CBC, MDW, MG, GFR, PBNP, ANEU, BMP #### [place] [address] Eosinophils/100 WBC (Bld) 1.1 % Normal 0.0-6.0 AH Workflow SS Comment on above: Performed By: #### A DIFF, TROPHS, CBC, MDW, MG, GFR, PBNP, ANEU, BMP #### [place] [address] Lymphocytes/100 WBC (Bld) 27.6 % Normal 20.0-40.0 AH Workflow SS Comment on above: Performed By: #### A DIFF, TROPHS, CBC, MDW, MG, GFR, PBNP, ANEU, BMP #### [address] [address] Monocytes/100 WBC (Bld) 8.8 % Normal 2.0-13.0 A H Workflow SS Comment on above: Performed By: #### A DIFF, TROPHS, CBC, MDW, MG, GFR, PBNP, ANEU, BMP #### [address] [address] Neutrophils/100 WBC (Bld) 62.0 % Normal 50.0-75.0 AH Workflow SS Comment on above: Performed By: #### A DIFF, TROPHS, CBC, MDW, MG, GFR, PBNP, ANEU, BMP #### [address] [address] .GFROrdered By: SYSTEM [employer] on 03-27-2025 Estimated Glomerular Filtration Rate 92 ml/min/1.73sqm Normal AH ADM SS Comment on above: Interpretive Data: Stages of Chronic Kidney Disease (CKD) Stage Description eGFR(ml/min/1.73 sq.m.) CKD 1 Normal kidney function or >=90 normal kindney function with possible kidney damage (ex. Proteinuria) CKD 2 Kidney damage with mild loss 60-89 of kidney function CKD 3a Mild to moderate loss of kidney 45-59 function CKD 3b Moderate to severe loss of 30-44 of kindey function CKD 4 Severe loss of kidney function 15-29 CKD 5 Kidney failure <15 Note: (go live 2024) the eGFR calculation was updated to the 2020 CKD-EPI creatinine equation without a race factor to calculate the eGFR results. Result Comment: Stages of Chronic Kidney Disease (CKD) Stage Description eGFR(ml/min/1.73 sq.m.) CKD 1 Normal kidney function or >=90 normal kindney function with possible kidney damage (ex. Proteinuria) CKD 2 Kidney damage with mild loss 60-89 of kidney function CKD 3a Mild to moderate loss of kidney 45-59 function CKD 3b Moderate to severe loss of 30-44 of kindey function CKD 4 Severe loss of kidney function 15-29 CKD 5 Kidney failure <15 Note: (go live 2024) the eGFR calculation was updated to the 2020 CKD-EPI creatinine equation without a race factor to calculate the eGFR results. Performed By: #### A DIFF, TROPHS, CBC, MDW, MG, GFR, PBNP, ANEU, BMP ####[place] [address] .MDWon 03-27-2025 Monocyte Distribution Width 18.79 Normal 0.00-20.00 [facility] Comment on above: Result Comment: For ED adult patients suspected of sepsis, MDW<=20.0 does not rule out sepsis or risk of sepsis Performed By: #### A DIFF, TROPHS, CBC, MDW, MG, GFR, PBNP, ANEU, BMP #### [place] [address] .NEUABSon 03-27-2025 Neutrophil, Absolute 3.9 10 3/mcL Normal 2.3-8.1 [facility] Comment on above: Performed By: #### A DIFF, TROPHS, CBC, MDW, MG, GFR, PBNP, ANEU, BMP #### [place] [address] BMPon 03-27-2025 BUN/Creatinine Ratio 16.1 ratio Normal 10.0-22.[address] [facility] Comment on above: Performed By: #### A DIFF, TROPHS, CBC, MDW, MG, GFR, PBNP, ANEU, BMP #### [place] [address] BMPOrdered By: SYSTEM SYSTEM on 03-27-2025 Calcium [Mass/Vol] 9.5 mg/dL Normal 8.7-10.4 AH ADM SS Comment on above: Performed By: #### A DIFF, TROPHS, CBC, MDW, MG, GFR, PBNP, ANEU, BMP #### [place] [address] Chloride [Moles/Vol] 104 mmol/L Normal 98-110 AH A DM SS Comment on above: Performed By: #### A DIFF, TROPHS, CBC, MDW, MG, GFR, PBNP, ANEU, BMP #### [address] [address] CO2 [Moles/Vol] 26 mmol/L Normal 22-32 AH ADM SS Comment on above: Performed By: #### A DIFF, TROPHS, CBC, MDW, MG, GFR, PBNP, ANEU, BMP #### [address] [address] Creatinine [Mass/Vol] 0.93 mg/dL Normal 0.60-1.40 AH ADM SS Comment on above: Interpretive Data: T esting performed on [employer] CH analyzer using enzymatic creatinine methodology. Result Comment: Test ing performed on [employer] CH analyzer using enzymatic creatinine methodology. Performed By: #### A DIFF, TROPHS, CBC, MDW, MG, GFR, PBNP, ANEU, BMP #### [address] [address] Electrolyte Balance 9.0 mEq/L Normal 4.0-15.0 AH AD M SS Comment on above: Performed By: #### A DIFF, TROPHS, CBC, MDW, MG, GFR, PBNP, ANEU, BMP #### [address] [address] Glucose [Mass/Vol] 92 mg/dL Normal 82-115 AH ADM SS Comment on above: Performed By: #### A DIFF, TROPHS, CBC, MDW, MG, GFR, PBNP, ANEU, BMP #### [address] [address] Potassium [Moles/Vol] 4.1 mmol/L Normal 3.5-5.0 AH ADM SS Comment on above: Performed By: #### A DIFF, TROPHS, CBC, MDW, MG, GFR, PBNP, ANEU, BMP #### [address] [address] Sodium [Moles/Vol] 139 mmol/L Normal 136-145 AH ADM SS Comment on above: Performed By: #### A DIFF, TROPHS, CBC, MDW, MG, GFR, PBNP, ANEU, BMP #### [address] [address] Urea nitrogen [Mass/Vol] 15.0 mg/dL Normal 8.0-22.0 AH ADM SS Comment on above: Performed By: #### A DIFF, TROPHS, CBC, MDW, MG, GFR, PBNP, ANEU, BMP #### [place] [address] CBCOrdered By: SYSTEM SYSTEM on 03-27-2025 Erythrocyte distribution width (RBC) [Ratio] 13.2 % Normal 11.5-15.5 AH Workflow SS Comment on above: Performed By: #### A DIFF, TROPHS, CBC, MDW, MG, GFR, PBNP, ANEU, BMP #### [place] [address] Hematocrit (Bld) [Volume fraction] 47.3 % Normal 40.0-52.0 AH Workflow SS Comment on above: Performed By: #### A DIFF, TROPHS, CBC, MDW, MG, GFR, PBNP, ANEU, BMP #### [place] [address] MCH (RBC) [Entitic mass] 31.0 pg Normal 27.0-33.0 AH Workflow SS Comment on above: Performed By: #### A DIFF, TROPHS, CBC, MDW, MG, GFR, PBNP, ANEU, BMP #### [place] [address] MCHC 34.5 G/dL Normal 32.0-36.0 AH Workflow SS Comment on above: Performed By: #### A DIFF, TROPHS, CBC, MDW, MG, GFR, PBNP, ANEU, BMP #### [place] [address] MCV (RBC) [Entitic vol] 89.8 fL Normal 81.0-100.0 A H Workflow SS Comment on above: Performed By: #### A DIFF, TROPHS, CBC, MDW, MG, GFR, PBNP, ANEU, BMP #### [place] [address] Platelet mean volume (Bld) [Entitic vol] 7.9 fL Normal 6.4-10.5 AH Workflow SS Comment on above: Performed By: #### A DIFF, TROPHS, CBC, MDW, MG, GFR, PBNP, ANEU, BMP #### [address] [address] CBCon 03-27-2025 Hgb 16.3 G/dL Normal 13.0-17.5 [facility] Comment on above: Performed By: #### A DIFF, TROPHS, CBC, MDW, MG, GFR, PBNP, ANEU, BMP #### [place] [id number] Platelet 212 10 3/mcL Normal 150-450 [facility] Comment on above: Performed By: #### A DIFF, TROPHS, CBC, MDW, MG, GFR, PBNP, ANEU, BMP #### [place] [id number] RBC 5.26 10 6/mcL Normal 4.50-6.00 [facility] Comment on above: Performed By: #### A DIFF, TROPHS, CBC, MDW, MG, GFR, PBNP, ANEU, BMP #### [place] [id number] WBC 6.3 10 3/mcL Normal 4.5-10.8 [facility] Comment on above: Performed By: #### A DIFF, TROPHS, CBC, MDW, MG, GFR, PBNP, ANEU, BMP #### [address] [address] DDHSon 03-27-2025 D-Dimer HS <200 Normal 0-230 [facility] Comment on above: Result Comment: DDN: Results reported in D-DU ng/mL. Negative for D-dimer. DVT/PE is highly unlikely. Note: False negative results may be seen in patients on anticoagulant therapy. The result of the D-Dimer test should be evaluated in the context of all the clinical and laboratory data available. In those instances where the laboratory result does not agree with the clinical evaluation, additional tests should be performed accordingly. If the D-Dimer result is used to exclude DVT or PE, the recommended cutoff value is less than 230 ng/mL. The D-Dimer result should not be used alone to rule in DVT/PE, but should be used in conjunction with a clinical pretest probability (PTP)assessment model to exclude venous thromboembolism (VTE) in patients suspected of deep venous thrombosis (DVT) and pulmonary embolism (PE). Performed By: #### D [facility] ####[place] [address] LABORATORYOrdered By: SYSTEM SYSTEM on 03-27-2025 D-Dimer HS ng/mL D-DU Normal 0 - 230 ng/mL D-DU [employer] SS Comment on above: Result Comment: DDN: Results reported in D-DU ng/mL. Negative for D-dimer. DVT/PE is highly unlikely. Note: False negative results may be seen in patients on anticoagulant therapy. Interpretive Data: T he result of the D-Dimer test should be evaluated in the context of all the clinical and laboratory data available. In those instances where the laboratory result does not agree with the clinical evaluation, additional tests should be performed accordingly. If the D-Dimer result is used to exclude DVT or PE, the recommended cutoff value is less than 230 ng/mL. The D-Dimer result should not be used alone to rule in DVT/PE, but should be used in conjunction with a clinical pretest probability (PTP)assessment model to exclude venous thromboembolism (VTE) in patients suspected of deep venous thrombosis (DVT) and pulmonary embolism (PE). Basophils (Bld) [#/Vol] 0.0 103/mcL Normal 0.0 - 0.3 10^3/mcL Workflow SS Eosinophils (Bld) [#/Vol] 0.1 103/mcL Normal 0.0 - 0.7 10^3/mcL Workflow SS Hemoglobin (Bld) [Mass/Vol] 16.3 G/dL Normal 13.0 - 17.5 G/dL Workflow Lymphocytes (Bld) [#/Vol] 1.7 103/mcL Normal 0.9 - 4.3 10^3/mcL Workflow SS Monocyte distribution width Auto (Bld) [Entitic vol] 18.79 1 Normal 0.00 - 20.00 Workflow Comment on above: Result Comment: For ED adult patients suspected of sepsis, MDW<=20.0 does not rule out sepsis or risk of sepsis Monocytes (Bld) [#/Vol] 0.6 103/mcL Normal 0.1 - 1.4 10^3/mcL Workflow SS Natriuretic peptide.B prohormone N-Terminal IA [Mass/Vol] pg/mL Normal 0 - 900 pg/mL ADM Neutrophils (Bld) [#/Vol] 3.9 103/mcL Normal 2.3 - 8.1 10^3/mcL Workflow SS Platelets (Bld) [#/Vol] 212 103/mcL Normal 150 - 450 10^3/mcL Workflow SS RBC (Bld) [#/Vol] 5.26 106/mcL Normal 4.50 - 6.0 0 10^6/mcL Workflow SS Urea nitrogen/Creatinine [Mass ratio] 16.1 ratio Normal 10.0 - 22.0 ratio ADM SS WBC (Bld) [#/Vol] 6.3 103/mcL Normal 4.5 - 10.8 10^3/mcL Workflow SS Laboratory - Chemistry and C hemistry - challengeOrdered By: SYSTEM SYSTEM on 03-27-2025 Troponin I.cardiac DL <= 0.01 ng/mL [Mass/Vol] ng/L Normal 0 - 54 ng/L ADM Comment on above: Interpretive Data: High Sensitive Troponin I Reference Ranges: Female: 0-34 ng/L Male: 0-54 ng/L Testing performed on [employer] IM analyzer using direct chemiluminescent technology. MGOrdered By: SYSTEM SYSTEM on 03-27-2025 Magnesium [Mass/Vol] 2.2 mg/dL Normal 1.6-2.4 A DM Comment on above: Performed By: #### A DIFF, TROPHS, CBC, MDW, MG, GFR, PBNP, ANEU, BMP #### [place] [address] PBNPon 03-27-2025 N-Terminal proBNP <35 Normal 0-900 [facility] Comment on above: Performed By: #### A DIFF, TROPHS, CBC, MDW, MG, GFR, PBNP, ANEU, BMP ####[address] [address] TROPHSon 03-27-2025 High Sensitivity Troponin I <3 Normal 0-54 [facility] Comment on above: Result Comment: High Sensitive Troponin I Reference Ranges: Female: 0-34 ng/L Male: 0-54 ng/L Testing performed on [employer] IM analyzer using direct chemiluminescent technology. Performed By: #### T ROP #### [place] [address] High Sensitivity Troponin I <3 Normal 0-54 [facility] Comment on above: Result Comment: High Sensitive Troponin I Reference Ranges: Female: 0-34 ng/L Male: 0-54 ng/L Testing performed on [employer] analyzer using direct chemiluminescent technology. Performed By: #### A DIFF, TROPHS, CBC, MDW, MG, GFR, PBNP, ANEU, BMP #### [facility] [address] [place] [id number] XR CHEST 1 VIEWon 03-27-2025 XR CHEST 1 VIEW ORIGINAL EXAMINATION: ONE XRAY VIEW OF THE CHEST 03/27/2025 2:11 pm COMPARISON: 08/30/2023 HISTORY: ORDERING SYSTEM PROVIDED HISTORY: Reason for Exam: chest pain FINDINGS: Cardiomediastinal silhouette is within normal limits. There is no overt edema. No focal consolidation, pleural effusion or pneumothorax. No acute osseous abnormality. IMPRESSION: No acute cardiopulmonary process. Interpreted by: Hayder Olson Preliminary Report By: Hayder Olson Electronically signed By Hayder Olson Dictated Date: 03/27/2025 2:17:41 PM Prelim Date: 03/27/2025 2:18:04 PM Sign Date: 03/27/2025 2:18:04 PM Ordering Provider: CLIFTON ALFONSO [facility] 12 Lead EKGon 03-26-2025 12 Lead EKG [facility] Cardiovascular Services [address] [place] [address] 12 Lead EKG 03/26/25 1051 MR#: [id number] Acct: [id number] Name: COLIN PENN Rep #: [id number] : 1960 64 From: Razia Robert MD Attending Dr: Status: DEP ER Ordering Dr: Mitchel Morel DO Date: 03/26/25 Location: ED Sex: M C Admitted: Test Reason : CP Blood Pressure : */* mmHG Vent. Rate : 85 BPM Atrial Rate : 85 BPM P-R Int : 140 ms QRS Dur : 86 ms QT Int : 362 ms P-R-T Axes : 41 60 40 degrees QTcB Int : 430 ms Normal sinus rhythm Normal ECG Confirmed by IKER ELLIS, VIDAL ([id number]), primer expeditor and drier LILLY SUAREZ ([id number]) on 03/29/2025 6:52:38 AM Referred By: NELLY Confirmed By: VIDAL ROBERT MD 03/29/2552 Date Razia Robert MD CC: Dr. Wily Carlton DO; Dr. Mitchel Morel DO Signed Normal [facility] Absolute lymphocyte countOrd ered By: Mitchel Morel on 03-26-2025 Lymphocytes Auto (Unsp spec) [#/Vol] 1.63 10*3/uL 0.83-4.51 [facility] Absolute neutrophil countOrd ered By: Mitchel Morel on 03-26-2025 Neutrophils (Bld) [#/Vol] 3.3 10*3/uL 2.0-7.7 [facility] Anion gap in Serum or Plasma Ordered By: Mitchel Morel on 03-26-2025 Anion gap [Moles/Vol] 12 mmol/L 5-15 [facility] Automated blood erythrocyte countOrdered By: Mitchel Morel on 03-26-2025 RBC (Bld) [#/Vol] 5.29 10*6/uL Normal 4.6-6.2 [facility] Comment on above: Performed By: #### L 499.0043 #### [facility] Laboratory [address] [place], [place], [id number] Automated blood hematocrit ( percentage)Ordered By: Mitchel Morel on 03-26-2025 Hematocrit (Bld) [Volume fraction] 48.2 % Normal 40-54 [facility] Comment on above: Performed By: #### L 499.0043 #### [facility] [address] [facility] [place], [place], [id number] Automated lymphocyte count a s percentage of total leukocytesOrdered By: Mitchel Morel on 03-26-2025 Lymphocytes/100 WBC Auto (Unsp spec) 30.3 % 19-41 [facility] BUN/creatinine ratioOrdered By: Mitchel Morel on 03-26-2025 Urea nitrogen/Creatinine [Mass ratio] 13.5 mg/mg 10-20 [facility] Basic Metabolic Profile (BMP )on 03-26-2025 BUN/CRE 13.5 RATIO Normal - [facility] Comment on above: Performed By: #### L 503.7505, L500.2500 #### [facility] [address] [place], [address] ECRCL 81.52 ml/min Normal 50-250 [facility] Comment on above: Performed By: #### L 503.7505, L500.2500 #### [facility] [address] [place], [address] GAP 12 Normal 5-15 [facility] Comment on above: Performed By: #### L 503.7505, L500.2500 #### [facility] [address] [place], [address] Potassium [Moles/Vol] 4.2 mmol/L Normal 3.3-5.1 [facility] Comment on above: Performed By: #### L 503.7505, L500.2500 #### [facility] [address] [place], [address] Basophil percentageOrdered B y: Mitchel Morel on 03-26-2025 Basophils/100 WBC (Bld) 0.6 % Normal 0-1 [facility] Comment on above: Performed By: #### L 499.0043 #### [facility] [address] [place], [address] CBC W/Diff, Automatedon Absolute Lymph 1.63 X10 3/uL Normal 0.83-4.51 [facility] Comment on above: Performed By: #### L 499.0043 #### [facility] [address] [place], [address] Absolute Neut 3.3 X10 3/uL Normal 2.0-7.7 [facility] Comment on above: Performed By: #### L 499.0043 #### [facility] [address] [place], [address] IG% 0.200 Normal 0.0-0.9 [facility] Comment on above: Result Comment: IG% - Immature Granulocytes (promyelocytes, myelocytes and metamyelocytes) > 1% indicates that a LEFT SHIFT is Present. Performed By: #### L 499.0043 #### [facility] [address] [place], [address] Lymphocytes/100 WBC (Bld) 30.3 % Normal 19-41 [facility] Comment on above: Performed By: #### L 499.0043 #### [facility] [address] [place], [address] Nucleated RBC (Bld) [#/Vol] 0 10*3/uL Normal 0-5 [facility] Comment on above: Performed By: #### L 499.0043 #### [facility] [address] [place], [address] RDW SD 43.0 fl Normal 35.1-43.9 [facility] Comment on above: Performed By: #### L 499.0043 #### [facility] [address] [place], [address] Carbon dioxide, total [Moles /volume] in Central venous bloodOrdered By: Mitchel Morel on 03-26-2025 CO2 [Moles/Vol] 25.3 mmol/L Normal 21.0-32.0 [facility] Comment on above: Performed By: #### L 503.7505, L500.2500 #### [facility] [address] [place], [address] Chest PA and Lateralon 03-26 Chest PA and Lateral [facility] Imaging Services [address] [place] [address] Chest PA and Lateral MR#: [id number] Acct: [id number] Name: COLIN PENN Rep #: [id number] : 1960 M 64 From: Sacha Dave PCP: Care Physician,No Primary Status: REG ER Study: Chest PA and Lateral Date of Exam: 03/26/25 Exam# [id number] Ordering Dr: Mitchel Morel DO PROCEDURE: CHEST PA AND LATERAL 03/26/2025 REASON FOR EXAM: CHEST PAIN TECHNIQUE: Frontal and lateral views of the chest. COMPARISON: AP chest 05/26/2023 and PA and lateral chest of 03/28/2023 RAD/Chest PA and Lateral IMPRESSION: Right upper quadrant abdominal surgical clips are again noted. Lungs appear clear of acute disease. No pleural effusion no pneumothorax is evident. The cardiomediastinal silhouette is within the normal range, and unchanged. Minimal degenerative changes of the thoracic spine are seen. Reading Location: [address] CC: Dr. Mitchel Morel DO; No Primary Care Physician Research Program Coordinator: Signed Normal [facility] Chloride assayOrdered By: Nacho Morel on 03-26-2025 Chloride [Moles/Vol] 102 mmol/L Normal 98-108 [facility] Comment on above: Performed By: #### L 503.7505, L500.2500 #### [facility] Laboratory [address] [facility] [place], [address] Emergency Department Summary on 03-26-2025 Emergency Department Summary [facility] Medical Records Department [address] [place] [address] Emergency Department Summary 03/26/25 MR#: [id number] Acct: [id number] Name: COLIN PENN Rep #: [id number] : 1960 64 From: Mitchel Morel DO PCP: Care Physician,No Primary Status:REG ER Location: ED HPI History of Present Illness Chief Complaint: Chest Pain Narrative Narrative: Patient is a 64-year-old male with a past medical history of CAD status post stent in 2024, history of DVT after a lower extremity injury, hypercholesteremia, hyperlipidemia, hiatal hernia who presents to the emergency department with a chief complaint of left-sided chest pain. Patient states that for the past few days now he has had chest pressure and states that it does radiate to his jaw. He states that he also has some shortness of breath but denies any recent travels. He states that talking makes his shortness of breath worse. He states that if he gets up and moves around he does not have worsening chest pain. 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 Patient denies smoking history, drug use, admits to occasional alcohol use [facility] Medical History Hiatal hernia Osteoporosis DVT (deep venous thrombosis) Migraines Osteoarthritis High triglycerides History of blood clots Seasonal allergies History of DVT (deep vein thrombosis) Wears glasses High cholesterol Gastric reflux Non-smoker Cardiology follow-up encounter History of Holter monitoring History of echocardiogram History of stress test Asthma Hyperlipidemia GERD (gastroesophageal reflux disease) Insomnia Obesity Home Medications ???Medication ???Instructions ???Recorded ???Last Taken ???Type rosuvastatin 5 mg tablet (Crestor) 5 mg PO QHS 08/25/21 Unknown His tory montelukast 10 mg tablet 10 mg PO DAILY PRN allergies 09/27 Unknown History (Singulair) azelastine 205.5 mcg (0.15 %) 1 spray intranasal BID PRN 3 Unknown History nasal spray allergies loratadine 10 mg tablet 10 mg PO DAILY 02/14/23 Unknown Hi story multivitamin with minerals-folic 1 tab PO DAILY 02/14/23 Unknown Hi story acid 12 mcg chewable tablet (Centrum Adults) famotidine 20 mg tablet 20 mg PO DAILY 03/14/23 Unknown Hi story metoprolol succinate 50 mg 50 mg PO DAILY #30 tabs 05/23/23 U nknown Rx tablet,extended release 24 hr hydroxyzine HCl 25 mg tablet 25 mg PO BID PRN anxiety #60 tabs 07/20/24 Unknown Rx meclizine 25 mg tablet 25 mg PO BID dizziness #60 tabs Unknown Rx Allergy/AdvReac Type Severity Reaction Status Date / Time Milk Containing Products Allergy throat Verified 03/26/25 10:51 (Dairy) tightens escitalopram (From Lexapro) AdvReac suicidal Verified 03/26/25 10:51 ideation Family History Sister Diabetes Cancer Mother Diabetes Arthritis Heart disease Father Hypertension Arthritis Colon cancer High cholesterol Brother Kidney disease Surgical History History of foot surgery Hx of arthroscopy of shoulder History of cholecystectomy right finger cyst excision H/O arthroscopy of shoulder Social History household members: spouse Smoking Status: Never smoker second hand exposure: No alcohol intake: current substance use type: does not use what type of physical activity do you participate in: walking and other frequency: 3-4 times per week ne/restoration: [employer] seatbelt use: always ROS ROS ED ROS Narrative Constitutional: Denies fevers, chills, headaches Eyes: Denies change in vision double vision blurry vision Cardiovascular: Complains of chest pressure as noted above denies palpitations Respiratory: Complains of shortness of breath as noted above denies coughing wheezing Abdomen: Complains of nausea denies abdominal pain vomiting diarrhea : Denies urinary symptoms Neurological: Denies numbness, weakness, tingling Musculoskeletal: Complains of back pain but has since resolved Skin: Denies rashes or lesions EXAM Physical Exam Narrative Exam Narrative: General: Patient lying in bed rest comfortably did not appear to be in acute distress Head: Atraumatic, normocephalic Eyes: PERRL bilaterally, EOMI bilateral, no conjunctival injection noted Neck: Soft, supple, trachea midline Cardiovascular: Regular rate and rhythm Respiratory: Clear to auscultation bilaterally Abdomen: Soft, nondistended, no tenderness palpation Extremities: Radial pulses +2/4 in the bilateral extremities, +5/5 strength noted in the bi (more content not included)... Normal [facility] Eosinophil percentageOrdered By: Mitchel Morel on 03-26-2025 Eosinophils/100 WBC (Bld) 1.1 % Normal 0-5 [facility] Comment on above: Performed By: #### L 499.0043 #### [facility] [address] [place], [address] Erythrocyte distribution wid th ratioOrdered By: Mitchel Morel on 03-26-2025 Erythrocyte distribution width (RBC) [Ratio] 13.1 % Normal 11.6-14.6 [facility] Comment on above: Performed By: #### L 499.0043 #### [facility] [address] [place], [address] Erythrocyte distribution wid th standard deviationOrdered By: Mitchel Morel on 03-26-2025 Erythrocyte distribution width (RBC) [Ratio] 43.0 fl 35.1-43.9 [facility] Glomerular filtration rate ( GFR) estimation/1.73 sq m using serum, plasma, or whole bOrdered By: Mitchel Morel on 03-26-2025 GFR/1.73 sq M.predicted among non-blacks MDRD (S/P/Bld) [Vol rate/Area] 77 mL/min/{1.73_m2} Normal >60 [facility] Comment on above: mL/min/1.73m2 CKD-EP I Creatinine Equation (2020) Result Comment: mL/m in/1.73m2 CKD-EPI Creatinine Equation (2020) Performed By: #### L 503.7505, L500.2500 #### [facility] [address] [place], [address] Hemoglobin measurementOrdere d By: Mitchel Morel on 03-26-2025 Hemoglobin (Bld) [Mass/Vol] 16.1 g/dL Normal 13.0-16.5 [facility] Comment on above: Performed By: #### L 499.0043 #### [facility] [address] [place], [address] Immature granulocytes/100 WB C Auto (Bld)Ordered By: Mitchel Morel on 03-26-2025 Immature granulocytes/100 WBC (Bld) 0.200 % 0.0-0.9 [facility] Comment on above: IG% - Immature Granu locytes (promyelocytes, myelocytes and metamyelocytes) > 1% indicates that a LEFT SHIFT is Present. L499.0042on 03-26-2025 Trop T High Sen 6 ng/L Normal <=22 [facility] Comment on above: Performed By: #### L 499.0042 #### [facility] [address] [place], [address] L499.0043on 03-26-2025 Trop T High Sen Normal <=22 [facility] Comment on above: Result Comment: Canc elled via OM: Order cancelled - Patient discharged Performed By: #### L 499.0043 #### [facility] [address] [place], [address] L501.4021on 03-26-2025 Trop T High Sen < 6 Normal <=22 [facility] Comment on above: Performed By: #### L 499.0042 #### [facility] [address] [place], [address] L503.7505on 03-26-2025 proBNP < 36 Normal <=900 [facility] Comment on above: Result Comment: Hear t Failure Unlikely: < 300 pg/mL Heart Failure Likely < 50 Years: > 450 pg/mL 50-75 Years: > 900 pg/mL >75 Years: > 1800 pg/mL Performed By: #### L 503.7505, L500.2500 #### [facility] [address] [place], [address] MCV (mean corpuscular volume ) determinationOrdered By: Mitchel Morel on 03-26-2025 MCV (RBC) [Entitic vol] 91.1 fL Normal 80-94 [facility] Comment on above: Performed By: #### L 499.0043 #### [facility] [address] [place], [address] Mean corpuscular hemoglobin (MCH) determinationOrdered By: Mitchel Morel on 03-26-2025 MCH (RBC) [Entitic mass] 30.4 pg Normal 27.0-32.0 [facility] Comment on above: Performed By: #### L 499.0043 #### [facility] [address] [place], [address] Mean corpuscular hemoglobin concentration (MCHC) determinationOrdered By: Mitchel Morel on 03-26-2025 MCHC (RBC) [Mass/Vol] 33.4 g/dL Normal 32-36 [facility] Comment on above: Performed By: #### L 499.0043 #### [facility] [address] [place], [address] Mean platelet volume determi nationOrdered By: Mitchel Morel on 03-26-2025 Platelet mean volume (Bld) [Entitic vol] 10.2 fL Normal 6.2-12.0 [facility] Comment on above: Performed By: #### L 499.0043 #### [facility] [address] [place], [address] Monocyte percentageOrdered B y: Mitchel Morel on 03-26-2025 Monocytes/100 WBC (Bld) 6.1 % Normal 0-10 [facility] Comment on above: Performed By: #### L 499.0043 #### [facility] [address] [place], [address] Natriuretic peptide.B prohor gal N-Terminal [Mass/volume] in Serum or PlasmaOrdered By: Mitchel Morel on 03-26-2025 Natriuretic peptide.B prohormone N-Terminal [Mass/Vol] < 36 pg/mL <900 [facility] Comment on above: Heart Failure Unlike ly: < 300 pg/mLHeart Failure Likely< 50 Years: > 450 pg/mL50-75 Years: > 900 pg/mL>75 Years: > 1800 pg/mL Neutrophil percentageOrdered By: Mitchel Morel on 03-26-2025 Neutrophils/100 WBC (Bld) 61.7 % Normal 47-70 [facility] Comment on above: Performed By: #### L 499.0043 #### [facility] [address] [place], [address] Nucleated red blood cell per centageOrdered By: Mitchel Morel on 03-26-2025 Nucleated RBC/100 WBC (Bld) [Ratio] 0 % 0-5 [facility] Platelet countOrdered By: Nacho Morel on 03-26-2025 Platelets (Bld) [#/Vol] 190 10*3/uL Normal 150-450 [facility] Comment on above: Performed By: #### L 499.0043 #### [facility] [address] [place], [address] Potassium measurement (mass/ volume)Ordered By: Mitchel Morel on 03-26-2025 Potassium (Unsp spec) [Mass/Vol] 4.2 mmol/L 3.3-5.1 [facility] Serum creatinine measurement (mass/volume)Ordered By: Mitchel Morel on 03-26-2025 Creatinine [Mass/Vol] 1.07 mg/dL Normal 0.70-1.20 [facility] Comment on above: Performed By: #### L 503.7505, L500.2500 #### [facility] [address] [place], [address] Serum glucose measurement (m ass/volume)Ordered By: Mitchel Morel on 03-26-2025 Glucose [Mass/Vol] 125 mg/dL High 70-99 [facility] Comment on above: Performed By: #### L 503.7505, L500.2500 #### [facility] [address] [place], [address] Serum or plasma calcium meek urement (mass/volume)Ordered By: Mitchel Morel on 03-26-2025 Calcium [Mass/Vol] 9.5 mg/dL Normal 7.6-11.0 [facility] Comment on above: Performed By: #### L 503.7505, L500.2500 #### [facility] [address] [place], [place], [address] Serum or plasma urea nitroge n measurement (mass/volume)Ordered By: Mitchel Morel on 03-26-2025 Urea nitrogen [Mass/Vol] 14 mg/dL Normal 4-19 [facility] Comment on above: Performed By: #### L 503.7505, L500.2500 #### [facility] [address] [place], [place], [id number] Sodium levelOrdered By: Rozina Morel on 03-26-2025 Sodium [Moles/Vol] 139 mmol/L Normal 133-145 [facility] Comment on above: Performed By: #### L 503.7505, L500.2500 #### [facility] [address] [place], [place], [address] Troponin T.cardiac [Mass/vol ume] in Serum or Plasma by High sensitivity methodOrdered By: Mitchel Morel on 03-26-2025 Troponin T.cardiac High sensitivity method [Mass/Vol] 6 ng/L <22 [facility] Troponin T.cardiac High sensitivity method [Mass/Vol] < 6 ng/L <22 [facility] White blood cell (WBC) count Ordered By: Mitchel Morel on 03-26-2025 WBC (Bld) [#/Vol] 5.4 10*3/uL Normal 4.4-11.0 [facility] Comment on above: Performed By: #### L 499.0043 #### [facility] [address] [place], [place], [id number] NUTPNLon 03-10-2025 Class Description Comment Normal [facility] Comment on above: Result Comment: Levels of Specific IgE Class Description of Class ----- < 0.10 0 Negative 0.10 - 0.31 0/I Equivocal/Low 0.32 - 0.55 I Low 0.56 - 1.40 II Moderate 1.41 - 3.90 III High 3.91 - 19.00 IV Very High 19.01 - 100.00 V Very High >100.00 Very High Performed By: #### 6 [id number] #### [place] [address] IgE [place] F020 <0.10 Normal Class 0 [facility] Comment on above: Performed By: #### 6 [id number] #### [place] [address] IgE [place] Nut F018 <0.10 Normal Class 0 [facility] Comment on above: Performed By: #### 6 [id number] #### [place] [address] IgE [place] Nut F202 <0.10 Normal Class 0 [facility] Comment on above: Performed By: #### 6 [address] #### [place] [address] IgE [place] ([place]) F017 <0.10 Normal Class 0 [facility] Comment on above: Performed By: #### 6 [address]65 #### [place] [address] IgE Macadamia Nut F345 <0.10 Normal Class 0 [facility] Comment on above: Result Comment: This test was developed and its performance characteristics determined by [facility]. It has not been cleared or approved by the U.S. Food and Drug Administration. The FDA has determined that such clearance or approval is not necessary. This test is used for clinical purposes. It should not be regarded as investigational or for research. Performed At: [address] [id number] James Nuñez MD Ph:[phone] Performed By: #### 6 [address] #### [place] [address] IgE Peanut F013 <0.10 Normal Class 0 [facility] Comment on above: Performed By: #### 6 [address]2376 #### [place] [address] IgE Pecan Nut F201 <0.10 Normal Class 0 [facility] Comment on above: Performed By: #### 6 [id number] #### [address] [address] IgE Pistachio Nut F203 <0.10 Normal Class 0 [facility] Comment on above: Performed By: #### 6 [address] #### [place] [address] [place], [place] [address] IgE [place] F256 <0.10 Normal Class 0 [facility] Comment on above: Performed By: #### 6 [id number] #### [address] [address] XR SPINE CERVICAL W/ OBLIQUE S 5 VIEWSon 03-10-2025 XR SPINE CERVICAL W/ OBLIQUES 5 VIEWS ORIGINAL EXAMINATION: FIVE XRAY VIEWS OF THE CERVICAL SPINE 03/05/2025 10:06 am COMPARISON: None. HISTORY: ORDERING SYSTEM PROVIDED HISTORY: Reason for Exam: Cervicalgia FINDINGS: Moderate degenerative disc disease affects C5-6 and C6-7. There is no acute fracture or infiltrative bony lesion. Precervical soft tissues are unremarkable. No bony encroachment upon the neural foramina or central spinal canal is evident. Lung apices remain clear. IMPRESSION: Moderate degenerative disc disease C5-6 and C6-7. Interpreted by: Ramos Rodgers DO Preliminary Report By: Ramos Rodgers DO Electronically signed By Ramos Rodgers DO Dictated Date: 03/10/2025 1:37:17 PM Prelim Date: 03/10/2025 1:38:28 PM Sign Date: 03/10/2025 1:38:28 PM Ordering Provider: VI ARTEAGA Normal [facility] .GFRon 02-18-2025 Estimated Glomerular Filtration Rate 86 ml/min/1.73sqm [facility] Comment on above: Result Comment: Stages of Chronic Kidney Disease (CKD) Stage Description eGFR(ml/min/1.73 sq.m.) CKD 1 Normal kidney function or >=90 normal kindney function with possible kidney damage (ex. Proteinuria) CKD 2 Kidney damage with mild loss 60-89 of kidney function CKD 3a Mild to moderate loss of kidney 45-59 function CKD 3b Moderate to severe loss of 30-44 of kindey function CKD 4 Severe loss of kidney function 15-29 CKD 5 Kidney failure <15 Note: (go live 2024) the eGFR calculation was updated to the 2020 CKD-EPI creatinine equation without a race factor to calculate the eGFR results. Performed By: #### C MP, GFR, PSA, A1C, LIPID #### [address] [address] A1Con 02-18-2025 Glucose [Mass/Vol] 117 mg/dL Normal [facility] Comment on above: Result Comment: Melissa mated Average Glucose calculated by equation ((28.7xA1C)-46.7) Estimated average glucose (eAG) is a calculated value from Hemoglobin A1C and is ambulatory services representative of the average blood glucose level in the last 2-3 month period. Normal range: less than 114 mg/dL Performed By: #### C MP, GFR, PSA, A1C, LIPID #### [address] [address] HbA1c (Bld) [Mass fraction] 5.7 % Normal 4.3-6.4 [facility] Comment on above: Performed By: #### C MP, GFR, PSA, A1C, LIPID #### [address] [address] CMPon 02-18-2025 Albumin Level 3.8 G/dL Normal 3.4-4.8 [facility] Comment on above: Performed By: #### C MP, GFR, PSA, A1C, LIPID #### [address] [address] Albumin/Globulin [Mass ratio] 1.1 {ratio} Normal 1.1-2.5 [facility] Comment on above: Performed By: #### C MP, GFR, PSA, A1C, LIPID #### [address] [address] ALP [Catalytic activity/Vol] 79 U/L Normal 40-135 [facility] Comment on above: Performed By: #### C MP, GFR, PSA, A1C, LIPID #### [address] [address] ALT [Catalytic activity/Vol] 37 U/L Normal 16-63 [facility] Comment on above: Performed By: #### C MP, GFR, PSA, A1C, LIPID #### [address] [address] AST [Catalytic activity/Vol] 19 U/L Normal 10-40 [facility] Comment on above: Performed By: #### C MP, GFR, PSA, A1C, LIPID #### [address] [address] Bili Total 1.2 mg/dL High 0.2-1.0 [facility] Comment on above: Result Comment: Use of this assay is not recommended for patients undergoing treatment with eltrombopag due to the potential for falsely elevated results. Performed By: #### C MP, GFR, PSA, A1C, LIPID #### [address] [address] BUN/Creatinine Ratio 16 ratio Normal 7-27 [facility] Comment on above: Performed By: #### C MP, GFR, PSA, A1C, LIPID #### [address] [address] Calcium [Mass/Vol] 9.0 mg/dL Normal 8.4-10.2 [facility] Comment on above: Performed By: #### C MP, GFR, PSA, A1C, LIPID #### [address] [address] Chloride [Moles/Vol] 105 mmol/L Normal 98-107 [facility] Comment on above: Performed By: #### C MP, GFR, PSA, A1C, LIPID #### [address] [address] CO2 [Moles/Vol] 30 mmol/L Normal 23-31 [facility] Comment on above: Performed By: #### C MP, GFR, PSA, A1C, LIPID #### [address] [address] Creatinine [Mass/Vol] 0.98 mg/dL Normal 0.67-1.17 [facility] Comment on above: Performed By: #### C MP, GFR, PSA, A1C, LIPID #### [address] [address] Electrolyte Balance 5.0 mEq/L Normal 4.0-15.0 [facility] Comment on above: Performed By: #### C MP, GFR, PSA, A1C, LIPID #### [address] [address] Globulin 3.5 G/dL Normal 2.7-4.4 [facility] Comment on above: Performed By: #### C MP, GFR, PSA, A1C, LIPID #### [place] [id number] Glucose [Mass/Vol] 109 mg/dL Normal 80-115 [facility] Comment on above: Performed By: #### C MP, GFR, PSA, A1C, LIPID #### [place] [id number] Potassium [Moles/Vol] 4.4 mmol/L Normal 3.5-5.1 [facility] Comment on above: Performed By: #### C MP, GFR, PSA, A1C, LIPID #### [place] [id number] Sodium [Moles/Vol] 140 mmol/L Normal 136-145 [facility] Comment on above: Performed By: #### C MP, GFR, PSA, A1C, LIPID #### [place] [id number] Total Protein 7.3 G/dL Normal 6.4-8.2 [facility] Comment on above: Performed By: #### C MP, GFR, PSA, A1C, LIPID #### [place] [id number] Urea nitrogen [Mass/Vol] 16 mg/dL Normal 7-18 [facility] Comment on above: Performed By: #### C MP, GFR, PSA, A1C, LIPID #### [address] [address] LABORATORYOrdered By: SYSTEM SYSTEM on 02-18-2025 Albumin BCP dye [Mass/Vol] 3.8 G/dL Normal 3.4 - 4.8 G/dL AO ADM SS Albumin/Globulin [Mass ratio] 1.1 {ratio} Normal 1.1 - 2.5 ratio AO ADM SS ALP [Catalytic activity/Vol] 79 U/L Normal 40 - 135 U/L AO ADM SS ALT With P-5'-P [Catalytic activity/Vol] 37 U/L Normal 16 - 63 U/L AO ADM SS AST With P-5'-P [Catalytic activity/Vol] 19 U/L Normal 10 - 40 U/L AO ADM SS Bilirubin [Mass/Vol] 1.2 mg/dL High 0.2 - 1 .0 mg/dL AO ADM SS Comment on above: Interpretive Data: U se of this assay is not recommended for patients undergoing treatment with eltrombopag due to the potential for falsely elevated results. Calcium [Mass/Vol] 9.0 mg/dL Normal 8.4 - 10. 2 mg/dL AO ADM SS Chloride [Moles/Vol] 105 mmol/L Normal 98 - 10 7 mmol/L AO ADM SS CO2 [Moles/Vol] 30 mmol/L Normal 23 - 31 mmol/L AO ADM SS Creatinine [Mass/Vol] 0.98 mg/dL Normal 0.67 - 1.17 mg/dL AO ADM SS Electrolyte Balance 5.0 mEq/L Normal 4.0 - 15 .0 mEq/L AO ADM SS Estimated Glomerular Filtration Rate 86 ml/min/1.73sqm Invalid Interpretation Code AO Chemistry S Comment on above: Interpretive Data: Stages of Chronic Kidney Disease (CKD) Stage Description eGFR(ml/min/1.73 sq.m.) CKD 1 Normal kidney function or >=90 normal kindney function with possible kidney damage (ex. Proteinuria) CKD 2 Kidney damage with mild loss 60-89 of kidney function CKD 3a Mild to moderate loss of kidney 45-59 function CKD 3b Moderate to severe loss of 30-44 of kindey function CKD 4 Severe loss of kidney function 15-29 CKD 5 Kidney failure <15 Note: (go live 2024) the eGFR calculation was updated to the 2020 CKD-EPI creatinine equation without a race factor to calculate the eGFR results. Globulin 3.5 G/dL Normal 2.7 - 4.4 G/dL AO ADM SS Glucose [Mass/Vol] 109 mg/dL Normal 80 - 115 mg/dL AO ADM SS Glucose [Mass/Vol] 117 mg/dL Invalid Interpretation Code AO Chemistry S Comment on above: Interpretive Data: E stimated average glucose (eAG) is a calculated value from Hemoglobin A1C and is ambulatory services representative of the average blood glucose level in the last 2-3 month period. Normal range: less than 114 mg/dL HbA1c (Bld) [Mass fraction] 5.7 % Normal 4.3 - 6.4 % AO ADM SS Potassium [Moles/Vol] 4.4 mmol/L Normal 3.5 - 5.1 mmol/L AO ADM SS Prostate specific Ag [Mass/Vol] 1.26 ng/mL Normal 0.00 - 4.00 ng/mL AO ADM SS Protein [Mass/Vol] 7.3 G/dL Normal 6.4 - 8.2 G/dL AO ADM SS Sodium [Moles/Vol] 140 mmol/L Normal 136 - 145 mmol/L AO ADM SS Urea nitrogen [Mass/Vol] 16 mg/dL Normal 7 - 18 mg/dL AO ADM SS Urea nitrogen/Creatinine [Mass ratio] 16 ratio Normal 7 - 27 ratio AO ADM SS LABORATORYOrdered By: Shruthi Lemus on 02-18-2025 Cholesterol [Mass/Vol] 142 mg/dL Normal 0 - 2 00 mg/dL AO ADM SS Comment on above: Interpretive Data: C holesterol Reference Interval: Less than 200 Desirable 200-239 Borderline high risk 240 and above High risk Cholesterol in HDL [Mass/Vol] 38 mg/dL Low 40 - 60 mg/dL AO ADM SS Cholesterol in LDL [Mass/Vol] 83 mg/dL Normal 0 - 130 mg/dL AO ADM SS Triglyceride [Mass/Vol] 103 mg/dL Normal 0 - 150 mg/dL AO ADM SS Comment on above: Interpretive Data: T riglyceride Reference Interval: Less than 150 Normal 150-199 Borderline high risk 200-499 High risk 500 or higher Very high risk LIPIDon 02-18-2025 Cholesterol [Mass/Vol] 142 mg/dL Normal 0-200 [facility] Comment on above: Result Comment: Chol esterol Reference Interval: Less than 200 Desirable 200-239 Borderline high risk 240 and above High risk Performed By: #### C MP, GFR, PSA, A1C, LIPID #### [address] [address] Cholesterol in HDL [Mass/Vol] 38 mg/dL Low 40-60 [facility] Comment on above: Performed By: #### C MP, GFR, PSA, A1C, LIPID #### [address] [address] Cholesterol in LDL [Mass/Vol] 83 mg/dL Normal 0-130 [facility] Comment on above: Performed By: #### C MP, GFR, PSA, A1C, LIPID #### [address] [address] Triglyceride [Mass/Vol] 103 mg/dL Normal 0-150 [facility] Comment on above: Result Comment: Trig lyceride Reference Interval: Less than 150 Normal 150-199 Borderline high risk 200-499 High risk 500 or higher Very high risk Performed By: #### C MP, GFR, PSA, A1C, LIPID #### [address] [address] PSAon 02-18-2025 Prostate Specific Antigen 1.26 ng/mL Normal 0.00-4.00 [facility] Comment on above: Performed By: #### C MP, GFR, PSA, A1C, LIPID #### [address] [address] .Auto Diffon 02-18-2024 Basophil, Absolute 0.0 10 3/mcL Normal 0.0-0.2 [facility] ([place] Comment on above: Performed By: #### T MIMI, GFR, CMP, MDW, ANEU, ADIFF, CBC, PBNP #### [address] [address] Basophils/100 WBC (Bld) 0.5 % Normal 0.0-2.5 A [facility] ([place] Comment on above: Performed By: #### T MIMI, GFR, CMP, MDW, ANEU, ADIFF, CBC, PBNP #### [address] [address] Eosinophil, Absolute 0.1 10 3/mcL Normal 0.0-0.4 [facility] ([place]) Comment on above: Performed By: #### T ROPHS, GFR, CMP, MDW, ANEU, ADIFF, CBC, PBNP #### [address] [address] Eosinophils/100 WBC (Bld) 1.4 % Normal 0.0-7.0 [facility] ([place]) Comment on above: Performed By: #### T ROPHS, GFR, CMP, MDW, ANEU, ADIFF, CBC, PBNP #### [address] [address] Lymphocyte, Absolute 2.6 10 3/mcL Normal 0.8-3.9 [facility] ([place]) Comment on above: Performed By: #### T ROPHS, GFR, CMP, MDW, ANEU, ADIFF, CBC, PBNP #### [address] [address] Lymphocytes/100 WBC (Bld) 35.8 % Normal 10.0-50.0 [facility] ([place]) Comment on above: Performed By: #### T ROPHS, GFR, CMP, MDW, ANEU, ADIFF, CBC, PBNP #### [address] [address] Monocyte, Absolute 0.6 10 3/mcL Normal 0.2-1.0 [facility] ([place]) Comment on above: Performed By: #### T ROPHS, GFR, CMP, MDW, ANEU, ADIFF, CBC, PBNP #### [address] [address] Monocytes/100 WBC (Bld) 8.4 % Normal 1.7-13.0 [facility] ([place]) Comment on above: Performed By: #### T ROPHS, GFR, CMP, MDW, ANEU, ADIFF, CBC, PBNP #### [address] [address] Neutrophils/100 WBC (Bld) 53.9 % Normal 37.0-80.0 [facility] ([place]) Comment on above: Performed By: #### T ROPHS, GFR, CMP, MDW, ANEU, ADIFF, CBC, PBNP #### [address] [address] .GFRon 02-18-2024 GFR Non- 63 ml/min/1.73sqm Normal [facility] ([place]) Comment on above: Result Comment: GFR Population mean for , Non- Americans Ages 20-29 = 116 mL/min/1.73 sq.m. Ages 30-39 = 107 mL/min/1.73 sq.m. Ages 40-49 = 99 mL/min/1.73 sq.m. Ages 50-59 = 93 mL/min/1.73 sq.m. Ages 60-69 = 85 mL/min/1.73 sq.m. Ages 70+ = 75 mL/min/1.73 sq.m. Chronic Kidney Disease: Less than 60 mL/min/1.73 square meters End Stage Renal Disease: Less than 15 mL/min/1.73 square meters Performed By: #### T MIMI, GFR, CMP, MDW, ANEU, ADIFF, CBC, PBNP #### [address] [address] GFR 76 ml/min/1.73sqm Normal [facility] ([place]) Comment on above: Result Comment: GFR Population mean for , Non- Americans Ages 20-29 = 116 mL/min/1.73 sq.m. Ages 30-39 = 107 mL/min/1.73 sq.m. Ages 40-49 = 99 mL/min/1.73 sq.m. Ages 50-59 = 93 mL/min/1.73 sq.m. Ages 60-69 = 85 mL/min/1.73 sq.m. Ages 70+ = 75 mL/min/1.73 sq.m. Chronic Kidney Disease: Less than 60 mL/min/1.73 square meters End Stage Renal Disease: Less than 15 mL/min/1.73 square meters Performed By: #### T MIMI, GFR, CMP, MDW, ANEU, ADIFF, CBC, PBNP #### [address] [address] .NEUABSon 02-18-2024 Neutrophil, Absolute 4.0 10 3/mcL Normal 2.9-6.2 [facility] ([place]) Comment on above: Performed By: #### T MIMI, GFR, CMP, MDW, ANEU, ADIFF, CBC, PBNP #### [address] [address] BMPon 02-18-2024 BUN/Creatinine Ratio 18 ratio Normal 7-27 [facility] ([place]) Comment on above: Performed By: #### T MIMI, GFR, CMP, MDW, ANEU, ADIFF, CBC, PBNP #### [address] [address] Calcium [Mass/Vol] 9.1 mg/dL Normal 8.4-10.2 [facility] ([place]) Comment on above: Performed By: #### T MIMI, GFR, CMP, MDW, ANEU, ADIFF, CBC, PBNP #### [address] [address] Chloride [Moles/Vol] 105 mmol/L Normal 98-107 [facility] ([place] Comment on above: Performed By: #### T MIMI, GFR, CMP, MDW, ANEU, ADIFF, CBC, PBNP #### [address] [address] CO2 [Moles/Vol] 27 mmol/L Normal 23-31 [facility] ([place]) Comment on above: Performed By: #### T MIMI, GFR, CMP, MDW, ANEU, ADIFF, CBC, PBNP #### [address] [address] Creatinine [Mass/Vol] 1.17 mg/dL Normal 0.70-1.30 [facility] ([place]) Comment on above: Performed By: #### T MIMI, GFR, CMP, MDW, ANEU, ADIFF, CBC, PBNP #### [address] [address] Electrolyte Balance 13.0 mEq/L Normal 4.0-15.0 [facility] ([place]) Comment on above: Performed By: #### T LEWHS, GFR, CMP, MDW, ANEU, ADIFF, CBC, PBNP #### [address] [address] Glucose [Mass/Vol] 133 mg/dL High 80-115 [facility] ([place] Comment on above: Performed By: #### T LEWHS, GFR, CMP, MDW, ANEU, ADIFF, CBC, PBNP #### [address] [address] Potassium [Moles/Vol] 4.7 mmol/L Normal 3.5-5.1 [facility] ([place] Comment on above: Performed By: #### T MIMI, GFR, CMP, MDW, ANEU, ADIFF, CBC, PBNP #### [address] [address] Sodium [Moles/Vol] 145 mmol/L Normal 136-145 [facility] ([place] Comment on above: Performed By: #### T LEWHS, GFR, CMP, MDW, ANEU, ADIFF, CBC, PBNP #### [address] [address] Urea nitrogen [Mass/Vol] 21 mg/dL High 7-18 [facility] ([place] Comment on above: Performed By: #### T MIMI, GFR, CMP, MDW, ANEU, ADIFF, CBC, PBNP #### [address] [address] CBCon 02-18-2024 Erythrocyte distribution width (RBC) [Ratio] 13.0 % Normal 11.5-14.5 [facility] ([place] Comment on above: Performed By: #### T LEWHS, GFR, CMP, MDW, ANEU, ADIFF, CBC, PBNP #### [address] [address] Hematocrit (Bld) [Volume fraction] 47.5 % Normal 42.0-52.0 [facility] ([place] Comment on above: Performed By: #### T LEWHS, GFR, CMP, MDW, ANEU, ADIFF, CBC, PBNP #### [address] [address] Hgb 16.5 G/dL Normal 14.0-18.0 [facility] ([place] Comment on above: Performed By: #### T MIMI, GFR, CMP, MDW, ANEU, ADIFF, CBC, PBNP #### [address] [address] MCH (RBC) [Entitic mass] 31.7 pg High 27.0-31.2 [facility] ([place] Comment on above: Performed By: #### T MIMI, GFR, CMP, MDW, ANEU, ADIFF, CBC, PBNP #### [place] [address] MCHC 34.8 G/dL Normal 31.8-35.4 [facility] ([place] Comment on above: Performed By: #### T MIMI, GFR, CMP, MDW, ANEU, ADIFF, CBC, PBNP #### [address] [address] MCV (RBC) [Entitic vol] 91.2 fL Normal 80.0-94.0 A [facility] ([place] Comment on above: Performed By: #### T MIMI, GFR, CMP, MDW, ANEU, ADIFF, CBC, PBNP #### [place] [id number] Platelet 183 10 3/mcL Normal 130-400 [facility] ([place] Comment on above: Performed By: #### T MIMI, GFR, CMP, MDW, ANEU, ADIFF, CBC, PBNP #### [address] [address] Platelet mean volume (Bld) [Entitic vol] 7.8 fL Normal 7.4-10.4 [facility] ([place] Comment on above: Performed By: #### T MIMI, GFR, CMP, MDW, ANEU, ADIFF, CBC, PBNP #### [place] [address] RBC 5.20 10 6/mcL Normal 4.04-6.13 [facility] ([place] Comment on above: Performed By: #### T MIMI, GFR, BENJIE, MDW, ANEU, ADIFF, CBC, PBNP #### [address] [address] WBC 7.3 10 3/mcL Normal 4.6-10.8 [facility] ([place] Comment on above: Performed By: #### T MIMI, GFR, CMP, MDW, ANEU, ADIFF, CBC, PBNP #### [address] [address] PROon 02-18-2024 PT Coag (PPP) [Time] 10.8 s Normal 9.0-14.2 [facility] ([place] Comment on above: Performed By: #### T MIMI, DARRICK, BENJIE, W, ANEU, ADIFF, CBC, PBNP #### [address] [address] PT International Ratio 1.0 Normal [facility] ([place]) Comment on above: Result Comment: The [employer] (CHEST, 1992, 102:312S-25S) recommended therapeutic range for oral anticoagulant therapy is: LOW RISK: Prophylaxis of venous thrombosis INR: 2.0-3.0 Treatment of pulmonary embolism 2.0-3.0 Prevention of systemic embolism 2.0-3.0 HIGH RISK: Mechanical prosthetic valves 2.5-3.5 Performed By: #### T MIMI, GFR, BENJIE, MDW, ANEU, ADIFF, CBC, PBNP #### [address] [address] .GFRon 02-13-2024 GFR 98 ml/min/1.73sqm Normal [facility] ([place]) Comment on above: Result Comment: GFR Population mean for , Non- Americans Ages 20-29 = 116 mL/min/1.73 sq.m. Ages 30-39 = 107 mL/min/1.73 sq.m. Ages 40-49 = 99 mL/min/1.73 sq.m. Ages 50-59 = 93 mL/min/1.73 sq.m. Ages 60-69 = 85 mL/min/1.73 sq.m. Ages 70+ = 75 mL/min/1.73 sq.m. Chronic Kidney Disease: Less than 60 mL/min/1.73 square meters End Stage Renal Disease: Less than 15 mL/min/1.73 square meters Performed By: #### T MIMI, GFR, CMP, MDW, ANEU, ADIFF, CBC, PBNP #### [address] [address] GFR Non- 81 ml/min/1.73sqm Normal [facility] ([place] Comment on above: Result Comment: GFR Population mean for , Non- Americans Ages 20-29 = 116 mL/min/1.73 sq.m. Ages 30-39 = 107 mL/min/1.73 sq.m. Ages 40-49 = 99 mL/min/1.73 sq.m. Ages 50-59 = 93 mL/min/1.73 sq.m. Ages 60-69 = 85 mL/min/1.73 sq.m. Ages 70+ = 75 mL/min/1.73 sq.m. Chronic Kidney Disease: Less than 60 mL/min/1.73 square meters End Stage Renal Disease: Less than 15 mL/min/1.73 square meters Performed By: #### T MIMI, GFR, CMP, MDW, ANEU, ADIFF, CBC, PBNP #### [address] [address] A1Con 02-13-2024 HbA1c (Bld) [Mass fraction] 5.7 % Normal 4.3-6.4 [facility] ([place] Comment on above: Performed By: #### T MIMI, GFR, CMP, MDW, ANEU, ADIFF, CBC, PBNP #### [address] [address] CMPon 02-13-2024 Albumin Level 4.0 G/dL Normal 3.4-4.8 [facility] ([place] Comment on above: Performed By: #### T MIMI, GFR, CMP, MDW, ANEU, ADIFF, CBC, PBNP #### [address] [address] Albumin/Globulin [Mass ratio] 1.4 {ratio} Normal 1.1-2.5 [facility] ([place] Comment on above: Performed By: #### T ROPHS, GFR, CMP, MDW, ANEU, ADIFF, CBC, PBNP #### [address] [address] ALP [Catalytic activity/Vol] 71 U/L Normal 40-135 [facility] ([place] Comment on above: Performed By: #### T ROPHS, GFR, CMP, MDW, ANEU, ADIFF, CBC, PBNP #### [address] [address] ALT [Catalytic activity/Vol] 47 U/L Normal 16-63 [facility] ([place] Comment on above: Performed By: #### T ROPHS, GFR, CMP, MDW, ANEU, ADIFF, CBC, PBNP #### [address] [address] AST [Catalytic activity/Vol] 32 U/L Normal 10-40 [facility] ([place] Comment on above: Performed By: #### T LEWHS, GFR, CMP, MDW, ANEU, ADIFF, CBC, PBNP #### [address] [address] Bili Total 1.1 mg/dL High 0.2-1.0 [facility] ([place] Comment on above: Result Comment: Use of this assay is not recommended for patients undergoing treatment with eltrombopag due to the potential for falsely elevated results. Performed By: #### T ROPHS, GFR, CMP, MDW, ANEU, ADIFF, CBC, PBNP #### [address] [address] BUN/Creatinine Ratio 17 ratio Normal 7-27 [facility] ([place] Comment on above: Performed By: #### T ROPHS, GFR, CMP, MDW, ANEU, ADIFF, CBC, PBNP #### [address] [address] Calcium [Mass/Vol] 9.1 mg/dL Normal 8.4-10.2 [facility] ([place] Comment on above: Performed By: #### T MIMI, GFR, CMP, MDW, ANEU, ADIFF, CBC, PBNP #### [address] [address] Chloride [Moles/Vol] 105 mmol/L Normal 98-107 [facility] ([place] Comment on above: Performed By: #### T MIMI, GFR, CMP, MDW, ANEU, ADIFF, CBC, PBNP #### [address] [address] CO2 [Moles/Vol] 26 mmol/L Normal 23-31 [facility] ([place] Comment on above: Performed By: #### T MIMI, GFR, CMP, MDW, ANEU, ADIFF, CBC, PBNP #### [place] [address] Creatinine [Mass/Vol] 0.94 mg/dL Normal 0.70-1.30 [facility] ([place] Comment on above: Performed By: #### T MIMI, GFR, CMP, MDW, ANEU, ADIFF, CBC, PBNP #### [address] [address] Electrolyte Balance 13.0 mEq/L Normal 4.0-15.0 [facility] ([place] Comment on above: Performed By: #### T MIMI, GFR, CMP, MDW, ANEU, ADIFF, CBC, PBNP #### [address] [address] Globulin 2.8 G/dL Normal [facility] ([place] Comment on above: Performed By: #### T MIMI, GFR, CMP, MDW, ANEU, ADIFF, CBC, PBNP #### [address] [address] Glucose [Mass/Vol] 99 mg/dL Normal 80-115 [facility] ([place] Comment on above: Performed By: #### T MIMI, GFR, CMP, MDW, ANEU, ADIFF, CBC, PBNP #### [address] [address] Potassium [Moles/Vol] 4.3 mmol/L Normal 3.5-5.1 [facility] ([place] Comment on above: Performed By: #### T MIMI, GFR, CMP, MDW, ANEU, ADIFF, CBC, PBNP #### [place] [address] [place], [place] [address] Sodium [Moles/Vol] 144 mmol/L Normal 136-145 [facility] ([place] Comment on above: Performed By: #### T MIMI, GFR, CMP, MDW, ANEU, ADIFF, CBC, PBNP #### [address] [address] Total Protein 6.8 G/dL Normal 6.4-8.2 [facility] ([place] Comment on above: Performed By: #### T MIMI, GFR, CMP, MDW, ANEU, ADIFF, CBC, PBNP #### [address] [address] Urea nitrogen [Mass/Vol] 16 mg/dL Normal 7-18 [facility] ([place] Comment on above: Performed By: #### T MIMI, GFR, CMP, MDW, ANEU, ADIFF, CBC, PBNP #### [address] [address] LABORATORYOrdered By: SYSTEM SYSTEM on 02-13-2024 Albumin BCP dye [Mass/Vol] 4.0 G/dL Normal 3.4 - 4.8 G/dL AO ADM SS Albumin/Globulin [Mass ratio] 1.4 {ratio} Normal 1.1 - 2.5 ratio AO ADM SS ALP [Catalytic activity/Vol] 71 U/L Normal 40 - 135 U/L AO ADM SS ALT With P-5'-P [Catalytic activity/Vol] 47 U/L Normal 16 - 63 U/L AO ADM SS AST With P-5'-P [Catalytic activity/Vol] 32 U/L Normal 10 - 40 U/L AO ADM SS Bilirubin [Mass/Vol] 1.1 mg/dL High 0.2 - 1 .0 mg/dL AO ADM SS Comment on above: Interpretive Data: U se of this assay is not recommended for patients undergoing treatment with eltrombopag due to the potential for falsely elevated results. Calcium [Mass/Vol] 9.1 mg/dL Normal 8.4 - 10. 2 mg/dL AO ADM SS Chloride [Moles/Vol] 105 mmol/L Normal 98 - 10 7 mmol/L AO ADM SS CO2 [Moles/Vol] 26 mmol/L Normal 23 - 31 mmol/L AO ADM SS Creatinine [Mass/Vol] 0.94 mg/dL Normal 0.70 - 1.30 mg/dL AO ADM SS Electrolyte Balance 13.0 mEq/L Normal 4.0 - 15 .0 mEq/L AO ADM SS GFR/1.73 sq M.predicted among blacks MDRD (S/P/Bld) [Vol rate/Area] 98 ml/min/1.73sqm Invalid Interpretation Code AO Chemistry S Comment on above: Interpretive Data: GFR Population mean for , Non- Americans Ages 20-29 = 116 mL/min/1.73 sq.m. Ages 30-39 = 107 mL/min/1.73 sq.m. Ages 40-49 = 99 mL/min/1.73 sq.m. Ages 50-59 = 93 mL/min/1.73 sq.m. Ages 60-69 = 85 mL/min/1.73 sq.m. Ages 70+ = 75 mL/min/1.73 sq.m. Chronic Kidney Disease: Less than 60 mL/min/1.73 square meters End Stage Renal Disease: Less than 15 mL/min/1.73 square meters GFR/1.73 sq M.predicted among non-blacks MDRD (S/P/Bld) [Vol rate/Area] 81 ml/min/1.73sqm Invalid Interpretation Code AO Chemistry S Comment on above: Interpretive Data: GFR Population mean for , Non- Americans Ages 20-29 = 116 mL/min/1.73 sq.m. Ages 30-39 = 107 mL/min/1.73 sq.m. Ages 40-49 = 99 mL/min/1.73 sq.m. Ages 50-59 = 93 mL/min/1.73 sq.m. Ages 60-69 = 85 mL/min/1.73 sq.m. Ages 70+ = 75 mL/min/1.73 sq.m. Chronic Kidney Disease: Less than 60 mL/min/1.73 square meters End Stage Renal Disease: Less than 15 mL/min/1.73 square meters Globulin 2.8 G/dL Invalid Interpretation Code AO ADM SS Glucose [Mass/Vol] 99 mg/dL Normal 80 - 115 mg/dL AO ADM SS HbA1c (Bld) [Mass fraction] 5.7 % Normal 4.3 - 6.4 % AO ADM SS Potassium [Moles/Vol] 4.3 mmol/L Normal 3.5 - 5.1 mmol/L AO ADM SS Prostate specific Ag [Mass/Vol] 0.90 ng/mL Normal 0.00 - 4.00 ng/mL AO ADM SS Protein [Mass/Vol] 6.8 G/dL Normal 6.4 - 8.2 G/dL AO ADM SS Sodium [Moles/Vol] 144 mmol/L Normal 136 - 145 mmol/L AO ADM SS Urea nitrogen [Mass/Vol] 16 mg/dL Normal 7 - 18 mg/dL AO ADM SS Urea nitrogen/Creatinine [Mass ratio] 17 ratio Normal 7 - 27 ratio AO ADM SS LABORATORYOrdered By: Tiffanie Herman on 02-13-2024 Cholesterol [Mass/Vol] 144 mg/dL Normal 0 - 2 00 mg/dL AO ADM SS Comment on above: Interpretive Data: C holesterol Reference Interval: Less than 200 Desirable 200-239 Borderline high risk 240 and above High risk Cholesterol in HDL [Mass/Vol] 37 mg/dL Low 40 - 60 mg/dL AO ADM SS Cholesterol in LDL [Mass/Vol] 77 mg/dL Normal 0 - 130 mg/dL AO ADM SS Triglyceride [Mass/Vol] 150 mg/dL Normal 0 - 150 mg/dL AO ADM SS Comment on above: Interpretive Data: T riglyceride Reference Interval: Less than 150 Normal 150-199 Borderline high risk 200-499 High risk 500 or higher Very high risk LIPIDon 02-13-2024 Cholesterol [Mass/Vol] 144 mg/dL Normal 0-200 [facility] ([place] Comment on above: Result Comment: Chol esterol Reference Interval: Less than 200 Desirable 200-239 Borderline high risk 240 and above High risk Performed By: #### T ROPHS, GFR, CMP, MDW, ANEU, ADIFF, CBC, PBNP #### [address] [address] Cholesterol in HDL [Mass/Vol] 37 mg/dL Low 40-60 [facility] ([place] Comment on above: Performed By: #### T LEWHS, GFR, CMP, MDW, ANEU, ADIFF, CBC, PBNP #### [place] [id number] Cholesterol in LDL [Mass/Vol] 77 mg/dL Normal 0-130 [facility] ([place] Comment on above: Performed By: #### T MIMI, GFR, CMP, MDW, ANEU, ADIFF, CBC, PBNP #### [place] [address] Triglyceride [Mass/Vol] 150 mg/dL Normal 0-150 A [facility] ([place] Comment on above: Result Comment: Trig lyceride Reference Interval: Less than 150 Normal 150-199 Borderline high risk 200-499 High risk 500 or higher Very high risk Performed By: #### T MIMI, GFR, CMP, MDW, ANEU, ADIFF, CBC, PBNP #### [place] [id number] PSAon 02-13-2024 Prostate Specific Antigen 0.90 ng/mL Normal 0.00-4.00 [facility] ([place] Comment on above: Performed By: #### T MIMI, GFR, CMP, MDW, ANEU, ADIFF, CBC, PBNP #### [place] [id number] CT CORONARY ANGIOGRAPHY W+W/ O CONTRASTon 01-30-2024 CT CORONARY ANGIOGRAPHY W+W/O CONTRAST ORIGINAL CT CORONARY ANGIOGRAPHY W+W/O CONTRAST PATIENT NAME:COLIN PENN : 1960 GENDER: Male ORDERING PROVIDER:AIDEE SAMUEL MD CLINICAL STATEMENT: palpitations, Chest pain abnormal stress, PVC's. surgical hx; none. PATIENT NAME:COLIN PENN : 1960 GENDER: Male ORDERING PROVIDER:AIDEE SAMUEL MD CLINICAL STATEMENT: palpitations, Chest pain abnormal stress, PVC's. surgical hx; none.. TECHNIQUE: 1. Noncontrast CT of the heart was obtained for calcium scoring. 2. CTA with c.c Omnipaque 350 IV contrast performed using prospective ECG gating about 1 cm above the AV to the diaphragm. FOV is very small to best evaluate the coronary arteries. Non-coronary chest anatomy is evaluated by Radiologist (Fady villeda). Cumulative dose is mSv 3. 3D postprocessing: MPR, MIP, +/- CPR, and volume rendering were performed. 4. This exam was performed according to our departmental dose optimization program, and includes the following measures where applicable: automated exposure control, adjustment of the mAs and/or kVp according to patient size and/or exam, and an iterative reconstruction algorithm. 5. This report adheres to SCCT / ACR / NASCI 2016 expert consensus document entitled, CAD-RADS(TM) Coronary Artery Disease - Reporting and Data System. MEDS: PO metoprolol (mg): \X09\100 IV metoprolol (mg): \X09\5 Nitroglycerin (mg): \X09\0.4 SL COMPLICATIONS: None ACQUISITION HR (bpm): \X09\68, regular rhythm. TECHNICAL QUALITY: \X09\Good with minor artifact but good diagnostic quality. LIMITATIONS: \[id number]\None Abbreviations: LM: left main, RCA: right coronary artery, PDA: posterior descending artery, PLB: posterolateral branch, AM: acute marginal, LAD: left anterior descending, LCx: left circumflex artery, OM: obtuse marginal, Dx: diagonal, D1: first diagonal, D2: second diagonal, HR: heart rate, RI: ramus intermedius, PA: pulmonary artery FINDINGS: COMPARISON: None Most of the non-coronary chest anatomy is excluded in the FOV. CARDIAC FINDINGS: NON-CORONARY HEART: \X0909\Not enlarged. PERICARDIUM:\X09\Contou r preserved. No effusion. No thickening. No calcifications. AV: \[id number]\Tricuspid. No thickening. No calcifications. MV: \[id number]\No thickening. No calcifications. CORONARY CALCIUM SCORING AGATSTON SCORE \X09\LM:\X09\0 \X09\LAD:\X09\216.4 \X09\LCx:\X09\72 \X09\RCA: 65.8 \X09\TOTAL: 354.2 DOMINANCE:\X09\Right ANATOMY:\X09\Normal origin and course. LM originates from L coronary sinus and RCA originates from R coronary sinus. LM gives rise to the LAD and LCx. . The LAD has diagonals. The LCX has obtuse marginals and PDA and left posterolateral branches. The RCA gives rise to acute marginals, PDA and right posterolateral branches. Coronary CTA interpretation utilizes diagonal branches to segment the LAD (prox, mid, distal) rather than the septal branches (as used on conventional angiography) as the latter are too small to visualize on CTA consistently. Left main: Minor luminal irregularities. LAD and diagonal branches: Proximal LAD is heavily calcified and nondiagnostic. The proximal-mid LAD has moderate-severe stenosis at bifurcation of D1. Left circumflex and obtuse marginal branches: Moderate mid-Lcx stenosis, non-calcified. Right coronary artery, PDA, and posterior lateral branches: Dominant. Mild diffuse CAD of RCA, RPDA, and RPL. Ramus Intermedius: N/A NON-CARDIAC FINDINGS: See radiology report. IMPRESSION: 1. Noncardiac findings were independently reported by Radiologist, see separate report under CT coronary extracardiac. 2. CAD-RADS N and 4A. 3. Technically difficult study due to elevated HR (scanned at 68bpm). 4. Proximal LAD is heavily calcified and nondiagnostic. The mid-LAD has moderate-severe stenosis at the bifurcation of D1. 5. Likely moderate mid-Lcx noncalcified stenosis. 6. Agatston score: 354.2. Percentile (81%): for age and gender in asymptomatic individuals. CAD-RADS 4 A Degree of Maximal Coronary Stenosis = 70-99% stenosis Interpretation = Severe stenosis Recommendation = Consider cardiac catheterization OR functional assessment (e.g., stress echo, nuclear stress test etc.,) AND Consider risk modification (aspirin, statin therapy, life style changes etc.,) CAD-RADS N Degree of Maximal Coronary Stenosis = Non-diagnostic study Interpretation = Obstructive CAD cannot be excluded Recommendation = Additional or alternative evaluation may be needed Interpreted By: Trung Fuentes Preliminary Report By: Trung Fuentes Electronically Signed By: Trung Fuentes Dictated Date: 01/30/2024 11:13:19 AM Prelim Date: 01/30/2024 11:13:19 AM Sign Date: 01/30/2024 11:23:41 AM Ordering Provider:Aidee Samuel [facility]) CT CORONARY EXTRACARDIACon 0 01-22-2024 CT CORONARY EXTRACARDIAC ORIGINAL EXAMINATION: CT THORAX WITH CONTRAST EXTRACARDIAC 01/21/2024 2:29 pm TECHNIQUE: CT of the chest with the administration of intravenous contrast. Multiplanar reformatted images are provided for review. Automated exposure control, iterative reconstruction, and/or weight based adjustment of the mA/kV was utilized to reduce the radiation dose to as low as reasonably achievable. Cardiac images were obtained and reported separately in a report from cardiology. COMPARISON: None. HISTORY: ORDERING SYSTEM PROVIDED HISTORY: Reason for Exam: abnormal stress, PVC's. surgical hx; none. palpations, chest pain FINDINGS: Cardiac portion of the CT is reported separately by the cardiology service. Mild dependent atelectasis visualized. No mediastinal adenopathy within the field of view. Minimal spurring seen in the spine. The abdomen is not evaluated in detail. IMPRESSION: 1. Cardiac portion of the CT is reported separately by the cardiology service. 2. Mild dependent atelectasis. Interpreted by: Ramos Good MD Preliminary Report By: Ramos Good MD Electronically signed By Ramos Good MD Dictated Date: 01/22/2024 10:07:28 AM Prelim Date: 01/22/2024 10:09:18 AM Sign Date: 01/22/2024 10:09:18 AM Ordering Provider: AIDEE SAMUEL [facility]) RFon 01-20-2024 Rheumatoid Factor <6.0 Normal <=5.9 [facility]) Comment on above: Result Comment: RF I gM Antibody by Enzyme Immunoassay: Negative < or = 6 Positive > 6 A positive result indicates the presence of RF antibodies and suggests the possibility of rheumatoid arthritis. A negative result indicates no RF IgM antibody or levels below the negative cut-off of the assay. Results of this assay should be used in conjunction with clinical findings and other serological tests. These results were obtained with the [employer] QUANTA Lite RF IgM LUX. RF IgM values obtained with different manufacturers' assay methods may not be used interchangeably. The magnitude of the reported IgM levels cannot be correlated to an endpoint titer. Performed By: #### T MIMI, GFR, CMP, MDW, ANEU, ADIFF, CBC, PBNP #### [address] [address] ANAon 01-17-2024 Nuclear Ab IF (S) [Titer] 40 {titer} Normal Neg 40 [facility] ([place] Comment on above: Result Comment: BRENDA Screen and Titer methodology is an immunofluorescent technique utilizing Hep2 Substrate. Performed By: #### T MIMI, GFR, BENJIE, HILL, ANEU, ADIFF, CBC, PBNP #### [address] [address] ESRon 01-16-2024 Erythrocyte Sed Rate 1 mm/hr Normal 0-20 [facility] ([place] Comment on above: Performed By: #### T MIMI, DARRICK, BENJIE, HILL, ANEU, ADIFF, CBC, PBNP #### [address] [address] LABORATORYOrdered By: Joseph pickard on 01-16-2024 ESR Photometric method (Bld) [Velocity] 1 mm/hr Normal 0 - 20 mm/hr AO Man Heme SS LABORATORYOrdered By: SYSTEM SYSTEM on 01-16-2024 Uric Acid Lvl 6.7 mg/dL Normal 3.5 - 7.2 mg/dL AO ADM SS URICon 01-16-2024 Uric Acid Lvl 6.7 mg/dL Normal 3.5-7.2 [facility] ([place] Comment on above: Performed By: #### T MIMI, GFR, BENJIE, HILL, ANEU, ADIFF, CBC, PBNP #### [address] [address] NM MYOCARDIAL SPECT STRESS/R ESTon 09-20-2023 NM MYOCARDIAL SPECT STRESS/REST ORIGINAL NM MYOCARDIAL SPECT STRESS/REST CLINICAL STATEMENT:SOB, CP, PVCs TECHNIQUE: Stress Protocol:Tiburcio Time Exercised:6minutes Predicted Max HR:157 Max HR Achieved:144 Percent Max HR:91 Peak Systolic BP:176 Rate-Pressure product: 21667 Radiopharmaceutical(res t): Tc-99m Sestamibi IV Dose:10.1 mCi Radiopharmaceutical(str ess): Tc-99m Sestamibi IV Dose:30.1 mCi SPECT acquisition:SPECT reconstruction and reorientation into short axis, vertical and horizontal long axis planes Quantitative LVEF assessment COMPARISON:10/06/20 REPORT: Consistent SPECT perfusion images demonstrate mild reversible defect in the anterior segments mid to distal. There is a small relatively fixed defect in the apical segment. Significant subdiaphragmatic tracer activity noted. No evidence of transient ischemic dilatation. Gated SPECT images demonstrate normal wall motion and wall thickening. End-diastolic volume 101 mL. Ejection fraction 58%. IMPRESSION: 1. Technically difficult study due to subdiaphragmatic tracer activity. 2. Possible mild ischemia involving anterior wall versus artifact. Prominent apical thinning noted. 3. Normal systolic function with ejection fraction of 58%. 4. Unable to open the images of prior study. Based on the report patient had mild defects in the apical anterolateral wall in prior study along with diaphragmatic attenuation. The anterior defects in the current study if real are likely new compared to prior study Interpreted By: Christoph Manley MD Preliminary Report By: Christoph Manley MD Electronically Signed By: Christoph Manley MD Dictated Date: 09/20/2023 12:19:24 PM Prelim Date: 09/20/2023 12:19:24 PM Sign Date: 09/20/2023 12:25:38 PM Ordering Provider:Sandy Acuña [facility] ([place] .Auto Diffon 08-30-2023 Basophil, Absolute 0.0 10 3/mcL Normal 0.0-0.2 [facility] ([place] Comment on above: Performed By: #### T MIMI, GFR, CMP, MDW, ANEU, ADIFF, CBC, PBNP #### [address] [address] Basophils/100 WBC (Bld) 0.5 % Normal 0.0-2.5 A [facility] ([place] Comment on above: Performed By: #### T MIMI, GFR, CMP, MDW, ANEU, ADIFF, CBC, PBNP #### [id number] [place], [place] [address] Eosinophil, Absolute 0.1 10 3/mcL Normal 0.0-0.4 [facility] ([place]) Comment on above: Performed By: #### T ROPHS, GFR, CMP, MDW, ANEU, ADIFF, CBC, PBNP #### [address] [address] Eosinophils/100 WBC (Bld) 1.1 % Normal 0.0-7.0 [facility] ([place]) Comment on above: Performed By: #### T ROPHS, GFR, CMP, MDW, ANEU, ADIFF, CBC, PBNP #### [address] [address] Lymphocyte, Absolute 2.3 10 3/mcL Normal 0.8-3.9 [facility] ([place]) Comment on above: Performed By: #### T ROPHS, GFR, CMP, MDW, ANEU, ADIFF, CBC, PBNP #### [address] [address] Lymphocytes/100 WBC (Bld) 33.7 % Normal 10.0-50.0 [facility] ([place]) Comment on above: Performed By: #### T ROPHS, GFR, CMP, MDW, ANEU, ADIFF, CBC, PBNP #### [address] [address] Monocyte, Absolute 0.5 10 3/mcL Normal 0.2-1.0 [facility] ([place]) Comment on above: Performed By: #### T ROPHS, GFR, CMP, MDW, ANEU, ADIFF, CBC, PBNP #### [address] [address] Monocytes/100 WBC (Bld) 8.1 % Normal 1.7-13.0 [facility] ([place]) Comment on above: Performed By: #### T ROPHS, GFR, CMP, MDW, ANEU, ADIFF, CBC, PBNP #### [address] [address] Neutrophils/100 WBC (Bld) 56.6 % Normal 37.0-80.0 [facility] ([place]) Comment on above: Performed By: #### T ROPHS, GFR, CMP, MDW, ANEU, ADIFF, CBC, PBNP #### [address] [address] .GFRon 08-30-2023 GFR Non- 68 ml/min/1.73sqm Normal [facility] ([place]) Comment on above: Result Comment: GFR Population mean for , Non- Americans Ages 20-29 = 116 mL/min/1.73 sq.m. Ages 30-39 = 107 mL/min/1.73 sq.m. Ages 40-49 = 99 mL/min/1.73 sq.m. Ages 50-59 = 93 mL/min/1.73 sq.m. Ages 60-69 = 85 mL/min/1.73 sq.m. Ages 70+ = 75 mL/min/1.73 sq.m. Chronic Kidney Disease: Less than 60 mL/min/1.73 square meters End Stage Renal Disease: Less than 15 mL/min/1.73 square meters Performed By: #### T MIMI, GFR, CMP, MDW, ANEU, ADIFF, CBC, PBNP #### [address] [address] GFR 83 ml/min/1.73sqm Normal [facility] ([place]) Comment on above: Result Comment: GFR Population mean for , Non- Americans Ages 20-29 = 116 mL/min/1.73 sq.m. Ages 30-39 = 107 mL/min/1.73 sq.m. Ages 40-49 = 99 mL/min/1.73 sq.m. Ages 50-59 = 93 mL/min/1.73 sq.m. Ages 60-69 = 85 mL/min/1.73 sq.m. Ages 70+ = 75 mL/min/1.73 sq.m. Chronic Kidney Disease: Less than 60 mL/min/1.73 square meters End Stage Renal Disease: Less than 15 mL/min/1.73 square meters Performed By: #### T MIMI, GFR, CMP, MDW, ANEU, ADIFF, CBC, PBNP #### [address] [address] .MDWon 08-30-2023 Monocyte Distribution Width 15.24 Normal 0.00-20.00 [facility] ([place]) Comment on above: Result Comment: For ED adult patients suspected of sepsis, MDW<=20.0 does not rule out sepsis or risk of sepsis Performed By: #### T MIMI, GFR, CMP, MDW, ANEU, ADIFF, CBC, PBNP #### [place] [address] .NEUABSon 08-30-2023 Neutrophil, Absolute 3.8 10 3/mcL Normal 2.9-6.2 [facility] ([place]) Comment on above: Performed By: #### T MIMI, GFR, CMP, MDW, ANEU, ADIFF, CBC, PBNP #### [place] [address] CBCon 08-30-2023 Erythrocyte distribution width (RBC) [Ratio] 13.5 % Normal 11.5-14.5 [facility] ([place]) Comment on above: Performed By: #### T MIMI, GFR, CMP, MDW, ANEU, ADIFF, CBC, PBNP #### [place] [address] Hematocrit (Bld) [Volume fraction] 48.3 % Normal 42.0-52.0 [facility] ([place]) Comment on above: Performed By: #### T MIMI, GFR, CMP, MDW, ANEU, ADIFF, CBC, PBNP #### [place] [address] Hgb 16.4 G/dL Normal 14.0-18.0 [facility] ([place]) Comment on above: Performed By: #### T MIMI, GFR, CMP, MDW, ANEU, ADIFF, CBC, PBNP #### [place] [address] MCH (RBC) [Entitic mass] 30.8 pg Normal 27.0-31.2 [facility] ([place]) Comment on above: Performed By: #### T LEWHS, GFR, CMP, MDW, ANEU, ADIFF, CBC, PBNP #### [place] [address] MCHC 34.0 G/dL Normal 31.8-35.4 [facility] ([place]) Comment on above: Performed By: #### T MIMI, GFR, CMP, MDW, ANEU, ADIFF, CBC, PBNP #### [address] [address] MCV (RBC) [Entitic vol] 90.6 fL Normal 80.0-94.0 A [facility] ([place]) Comment on above: Performed By: #### T MIMI, GFR, CMP, MDW, ANEU, ADIFF, CBC, PBNP #### [address] [address] Platelet 201 10 3/mcL Normal 130-400 [facility] ([place]) Comment on above: Performed By: #### T MIMI, GFR, CMP, MDW, ANEU, ADIFF, CBC, PBNP #### [address] [address] Platelet mean volume (Bld) [Entitic vol] 7.3 fL Low 7.4-10.4 [facility] ([place]) Comment on above: Performed By: #### T MIMI, GFR, CMP, MDW, ANEU, ADIFF, CBC, PBNP #### [address] [address] RBC 5.33 10 6/mcL Normal 4.04-6.13 [facility] ([place]) Comment on above: Performed By: #### T MIMI, GFR, CMP, MDW, ANEU, ADIFF, CBC, PBNP #### [address] [address] WBC 6.8 10 3/mcL Normal 4.6-10.8 [facility] ([place]) Comment on above: Performed By: #### T MIMI, GFR, CMP, MDW, ANEU, ADIFF, CBC, PBNP #### [address] [address] CMPon 08-30-2023 Albumin Level 4.0 G/dL Normal 3.4-4.8 [facility] ([place]) Comment on above: Performed By: #### T ROPHS, GFR, CMP, MDW, ANEU, ADIFF, CBC, PBNP #### [address] [address] Albumin/Globulin [Mass ratio] 1.2 {ratio} Normal 1.1-2.5 [facility] ([place]) Comment on above: Performed By: #### T ROPHS, GFR, CMP, MDW, ANEU, ADIFF, CBC, PBNP #### [address] [address] ALP [Catalytic activity/Vol] 80 U/L Normal 40-135 [facility] ([place]) Comment on above: Performed By: #### T ROPHS, GFR, CMP, MDW, ANEU, ADIFF, CBC, PBNP #### [address] [address] ALT [Catalytic activity/Vol] 46 U/L Normal 16-63 [facility] ([place]) Comment on above: Performed By: #### T ROPHS, GFR, CMP, MDW, ANEU, ADIFF, CBC, PBNP #### [address] [address] AST [Catalytic activity/Vol] 30 U/L Normal 10-40 [facility] ([place]) Comment on above: Performed By: #### T MIMI, GFR, CMP, MDW, ANEU, ADIFF, CBC, PBNP #### [address] [address] Bili Total 1.0 mg/dL Normal 0.2-1.0 [facility] ([place]) Comment on above: Result Comment: Use of this assay is not recommended for patients undergoing treatment with eltrombopag due to the potential for falsely elevated results. Performed By: #### T ROPHS, GFR, CMP, MDW, ANEU, ADIFF, CBC, PBNP #### [address] [address] BUN/Creatinine Ratio 17 ratio Normal 7-27 [facility] ([place]) Comment on above: Performed By: #### T ROPHS, GFR, CMP, MDW, ANEU, ADIFF, CBC, PBNP #### [address] [address] Calcium [Mass/Vol] 8.9 mg/dL Normal 8.4-10.2 [facility] ([place]) Comment on above: Performed By: #### T ROPHS, GFR, CMP, MDW, ANEU, ADIFF, CBC, PBNP #### [address] [address] Chloride [Moles/Vol] 104 mmol/L Normal 98-107 [facility] ([place]) Comment on above: Performed By: #### T LEWHS, GFR, CMP, MDW, ANEU, ADIFF, CBC, PBNP #### [address] [address] CO2 [Moles/Vol] 29 mmol/L Normal 23-31 [facility] ([place]) Comment on above: Performed By: #### T LEWHS, GFR, CMP, MDW, ANEU, ADIFF, CBC, PBNP #### [address] [address] Creatinine [Mass/Vol] 1.09 mg/dL Normal 0.70-1.30 [facility] ([place]) Comment on above: Performed By: #### T ROPHS, GFR, CMP, MDW, ANEU, ADIFF, CBC, PBNP #### [address] [address] Electrolyte Balance 11.0 mEq/L Normal 4.0-15.0 [facility] ([place]) Comment on above: Performed By: #### T ROPHS, GFR, CMP, MDW, ANEU, ADIFF, CBC, PBNP #### [address] [address] Globulin 3.3 G/dL Normal [facility] ([place]) Comment on above: Performed By: #### T ROPHS, GFR, CMP, MDW, ANEU, ADIFF, CBC, PBNP #### [address] [address] Glucose [Mass/Vol] 114 mg/dL Normal 80-115 [facility] ([place]) Comment on above: Performed By: #### T MIMI, GFR, CMP, MDW, ANEU, ADIFF, CBC, PBNP #### [address] [address] Potassium [Moles/Vol] 5.0 mmol/L Normal 3.5-5.1 [facility] ([place]) Comment on above: Performed By: #### T MIMI, GFR, CMP, MDW, ANEU, ADIFF, CBC, PBNP #### [address] [address] Sodium [Moles/Vol] 144 mmol/L Normal 136-145 [facility] ([place]) Comment on above: Performed By: #### T MIMI, GFR, CMP, MDW, ANEU, ADIFF, CBC, PBNP #### [address] [address] Total Protein 7.3 G/dL Normal 6.4-8.2 [facility] ([place]) Comment on above: Performed By: #### T MIMI, GFR, CMP, MDW, ANEU, ADIFF, CBC, PBNP #### [address] [address] Urea nitrogen [Mass/Vol] 18 mg/dL Normal 7-18 [facility] ([place]) Comment on above: Performed By: #### T MIMI, GFR, CMP, MDW, ANEU, ADIFF, CBC, PBNP #### [address] [address] LABORATORYOrdered By: SYSTEM SYSTEM on 08-30-2023 Albumin BCP dye [Mass/Vol] 4.0 G/dL Invalid Interpretation Code 3.4 - 4.8 G/dL AO ADM SS Albumin/Globulin [Mass ratio] 1.2 {ratio} Invalid Interpretation Code 1.1 - 2.5 ratio AO ADM SS ALP [Catalytic activity/Vol] 80 U/L Invalid Interpretation Code 40 - 135 U/L AO ADM SS ALT With P-5'-P [Catalytic activity/Vol] 46 U/L Invalid Interpretation Code 16 - 63 U/L AO ADM SS AST With P-5'-P [Catalytic activity/Vol] 30 U/L Invalid Interpretation Code 10 - 40 U/L AO ADM SS Basophil, Absolute 0.0 103/mcL Invalid Interpretation Code 0.0 - 0.2 10^3/mcL AO Workflow SS Basophils/100 WBC (Bld) 0.5 % Invalid Interpretation Code 0.0 - 2.5 % AO Workflow SS Bilirubin [Mass/Vol] 1.0 mg/dL Invalid Interpretation Code 0.2 - 1.0 mg/dL AO ADM SS Comment on above: Interpretive Data: U se of this assay is not recommended for patients undergoing treatment with eltrombopag due to the potential for falsely elevated results. Calcium [Mass/Vol] 8.9 mg/dL Invalid Interpretation Code 8.4 - 10.2 mg/dL AO ADM SS Chloride [Moles/Vol] 104 mmol/L Invalid Interpretation Code 98 - 107 mmol/L AO ADM SS CO2 [Moles/Vol] 29 mmol/L Invalid Interpretation Code 23 - 31 mmol/L AO ADM SS Creatinine [Mass/Vol] 1.09 mg/dL Invalid Interpretation Code 0.70 - 1.30 mg/dL AO ADM SS Electrolyte Balance 11.0 mEq/L Invalid Interpretation Code 4.0 - 15.0 mEq/L AO ADM SS Eosinophil, Absolute 0.1 103/mcL Invalid Interpretation Code 0.0 - 0.4 10^3/mcL AO Workflow SS Eosinophils/100 WBC (Bld) 1.1 % Invalid Interpretation Code 0.0 - 7.0 % AO Workflow SS Erythrocyte distribution width (RBC) [Ratio] 13.5 % Invalid Interpretation Code 11.5 - 14.5 % AO Workflow SS GFR/1.73 sq M.predicted among blacks MDRD (S/P/Bld) [Vol rate/Area] 83 ml/min/1.73sqm Invalid Interpretation Code AO Chemistry S Comment on above: Interpretive Data: GFR Population mean for , Non- Americans Ages 20-29 = 116 mL/min/1.73 sq.m. Ages 30-39 = 107 mL/min/1.73 sq.m. Ages 40-49 = 99 mL/min/1.73 sq.m. Ages 50-59 = 93 mL/min/1.73 sq.m. Ages 60-69 = 85 mL/min/1.73 sq.m. Ages 70+ = 75 mL/min/1.73 sq.m. Chronic Kidney Disease: Less than 60 mL/min/1.73 square meters End Stage Renal Disease: Less than 15 mL/min/1.73 square meters GFR/1.73 sq M.predicted among non-blacks MDRD (S/P/Bld) [Vol rate/Area] 68 ml/min/1.73sqm Invalid Interpretation Code AO Chemistry S Comment on above: Interpretive Data: GFR Population mean for , Non- Americans Ages 20-29 = 116 mL/min/1.73 sq.m. Ages 30-39 = 107 mL/min/1.73 sq.m. Ages 40-49 = 99 mL/min/1.73 sq.m. Ages 50-59 = 93 mL/min/1.73 sq.m. Ages 60-69 = 85 mL/min/1.73 sq.m. Ages 70+ = 75 mL/min/1.73 sq.m. Chronic Kidney Disease: Less than 60 mL/min/1.73 square meters End Stage Renal Disease: Less than 15 mL/min/1.73 square meters Globulin 3.3 G/dL Invalid Interpretation Code AO ADM SS Glucose [Mass/Vol] 114 mg/dL Invalid Interpretation Code 80 - 115 mg/dL AO ADM SS Hematocrit (Bld) [Volume fraction] 48.3 % Invalid Interpretation Code 42.0 - 52.0 % AO Workflow SS Hemoglobin (Bld) [Mass/Vol] 16.4 G/dL Invalid Interpretation Code 14.0 - 18.0 G/dL AO Workflow SS Lymphocyte, Absolute 2.3 103/mcL Invalid Interpretation Code 0.8 - 3.9 10^3/mcL AO Workflow SS Lymphocytes/100 WBC (Bld) 33.7 % Invalid Interpretation Code 10.0 - 50.0 % AO Workflow SS MCH (RBC) [Entitic mass] 30.8 pg Invalid Interpretation Code 27.0 - 31.2 pg AO Workflow SS MCHC 34.0 G/dL Invalid Interpretation Code 31.8 - 35.4 G/dL AO Workflow SS MCV (RBC) [Entitic vol] 90.6 fL Invalid Interpretation Code 80.0 - 94.0 fL AO Workflow SS Monocyte distribution width Auto (Bld) [Entitic vol] 15.24 1 Invalid Interpretation Code 0.00 - 20.00 AO Workflow SS Comment on above: Result Comment: For ED adult patients suspected of sepsis, MDW<=20.0 does not rule out sepsis or risk of sepsis Monocyte, Absolute 0.5 103/mcL Invalid Interpretation Code 0.2 - 1.0 10^3/mcL AO Workflow SS Monocytes/100 WBC (Bld) 8.1 % Invalid Interpretation Code 1.7 - 13.0 % AO Workflow SS Natriuretic peptide.B prohormone N-Terminal [Mass/Vol] 73 pg/mL Invalid Interpretation Code 0 - 125 pg/mL AO ADM SS Comment on above: Interpretive Data: N T-proBNP results of less than 300 pg/mL effectively rules out acute congestive heart failure with 99% negative predictive value. Neutrophil, Absolute 3.8 103/mcL Invalid Interpretation Code 2.9 - 6.2 10^3/mcL AO Workflow SS Neutrophils/100 WBC (Bld) 56.6 % Invalid Interpretation Code 37.0 - 80.0 % AO Workflow SS Platelet mean volume (Bld) [Entitic vol] 7.3 fL Invalid Interpretation Code 7.4 - 10.4 fL AO Workflow SS Platelets (Bld) [#/Vol] 201 103/mcL Invalid Interpretation Code 130 - 400 10^3/mcL AO Workflow SS Potassium [Moles/Vol] 5.0 mmol/L Invalid Interpretation Code 3.5 - 5.1 mmol/L AO ADM SS Protein [Mass/Vol] 7.3 G/dL Invalid Interpretation Code 6.4 - 8.2 G/dL AO ADM SS RBC (Bld) [#/Vol] 5.33 106/mcL Invalid Interpretation Code 4.04 - 6.13 10^6/mcL AO Workflow SS Sodium [Moles/Vol] 144 mmol/L Invalid Interpretation Code 136 - 145 mmol/L AO ADM SS Troponin I.cardiac DL <= 0.01 ng/mL [Mass/Vol] 5.3 ng/L Invalid Interpretation Code 0.0 - 76.2 ng/L AO ADM SS Urea nitrogen [Mass/Vol] 18 mg/dL Invalid Interpretation Code 7 - 18 mg/dL AO ADM SS Urea nitrogen/Creatinine [Mass ratio] 17 ratio Invalid Interpretation Code 7 - 27 ratio AO ADM SS WBC (Bld) [#/Vol] 6.8 103/mcL Invalid Interpretation Code 4.6 - 10.8 10^3/mcL AO Workflow SS PBNPon 08-30-2023 Natriuretic peptide B (Bld) [Mass/Vol] 73 pg/mL Normal 0-125 [facility] ([place]) Comment on above: Result Comment: NT-p roBNP results of less than 300 pg/mL effectively rules out acute congestive heart failure with 99% negative predictive value. Performed By: #### T ROPHS, GFR, CMP, MDW, ANEU, ADIFF, CBC, PBNP #### [address] [address] TROPHSon 08-30-2023 Troponin I High Sensitivity 5.3 ng/L Normal 0.0-76.2 [facility] ([place]) Comment on above: Performed By: #### T ROPHS, GFR, CMP, MDW, ANEU, ADIFF, CBC, PBNP #### [address] [address] XR CHEST 1 VIEWon 08-30-2023 XR CHEST 1 VIEW ORIGINAL HISTORY: Chest pain COMPARISON: 08 June 2023 FINDINGS: The lungs and pleural spaces are clear. The cardiac silhouette is within normal limits. The pulmonary vasculature is within normal limits. IMPRESSION: Clear lungs. Interpreted by: Luis Manuel Aquino MD Preliminary Report By: Luis Manuel Aquino MD Electronically signed By Luis Manuel Aquino MD Dictated Date: 08/30/2023 1:21:28 PM Prelim Date: 08/30/2023 1:21:47 PM Sign Date: 08/30/2023 1:21:47 PM Ordering Provider: NEETU Acuña [facility] ([place]) .Auto DiffOrdered By: SYSTEM SYSTEM on 06-08-2023 Basophil, Absolute 0.0 103/mcL Normal 0.0-0.2 AO Wo rkflow SS Comment on above: Performed By: #### T ROPHS, GFR, CMP, MDW, ANEU, ADIFF, CBC, PBNP #### [address] [address] Basophils/100 WBC (Bld) 0.3 % Normal 0.0-2.5 A O Workflow SS Comment on above: Performed By: #### T ROPHS, GFR, CMP, MDW, ANEU, ADIFF, CBC, PBNP #### [address] [address] Eosinophil, Absolute 0.0 103/mcL Normal 0.0-0.4 AO Workflow SS Comment on above: Performed By: #### T ROPHS, GFR, CMP, MDW, ANEU, ADIFF, CBC, PBNP #### [address] [address] Eosinophils/100 WBC (Bld) 0.6 % Normal 0.0-7.0 AO Workflow SS Comment on above: Performed By: #### T ROPHS, GFR, CMP, MDW, ANEU, ADIFF, CBC, PBNP #### [address] [address] Lymphocyte, Absolute 1.1 103/mcL Normal 0.8-3.9 AO Workflow SS Comment on above: Performed By: #### T ROPHS, GFR, CMP, MDW, ANEU, ADIFF, CBC, PBNP #### [address] [address] Lymphocytes/100 WBC (Bld) 22.2 % Normal 10.0-50.0 AO Workflow SS Comment on above: Performed By: #### T ROPHS, GFR, CMP, MDW, ANEU, ADIFF, CBC, PBNP #### [address] [address] Monocyte, Absolute 0.4 103/mcL Normal 0.2-1.0 AO Wo rkflow SS Comment on above: Performed By: #### T ROPHS, GFR, CMP, MDW, ANEU, ADIFF, CBC, PBNP #### [address] [address] Monocytes/100 WBC (Bld) 7.0 % Normal 1.7-13.0 A O Workflow SS Comment on above: Performed By: #### T ROPHS, GFR, CMP, MDW, ANEU, ADIFF, CBC, PBNP #### [address] [address] Neutrophils/100 WBC (Bld) 69.9 % Normal 37.0-80.0 AO Workflow SS Comment on above: Performed By: #### T ROPHS, GFR, CMP, MDW, ANEU, ADIFF, CBC, PBNP #### [address] [address] .GFRon 06-08-2023 GFR 78 ml/min/1.73sqm Normal [facility] ([place]) Comment on above: Result Comment: GFR Population mean for , Non- Americans Ages 20-29 = 116 mL/min/1.73 sq.m. Ages 30-39 = 107 mL/min/1.73 sq.m. Ages 40-49 = 99 mL/min/1.73 sq.m. Ages 50-59 = 93 mL/min/1.73 sq.m. Ages 60-69 = 85 mL/min/1.73 sq.m. Ages 70+ = 75 mL/min/1.73 sq.m. Chronic Kidney Disease: Less than 60 mL/min/1.73 square meters End Stage Renal Disease: Less than 15 mL/min/1.73 square meters Performed By: #### T MIMI, GFR, CMP, HILL, ANEU, ADIFF, CBC, PBNP #### [address] [address] GFR Non- 64 ml/min/1.73sqm Normal [facility] ([place]) Comment on above: Result Comment: GFR Population mean for , Non- Americans Ages 20-29 = 116 mL/min/1.73 sq.m. Ages 30-39 = 107 mL/min/1.73 sq.m. Ages 40-49 = 99 mL/min/1.73 sq.m. Ages 50-59 = 93 mL/min/1.73 sq.m. Ages 60-69 = 85 mL/min/1.73 sq.m. Ages 70+ = 75 mL/min/1.73 sq.m. Chronic Kidney Disease: Less than 60 mL/min/1.73 square meters End Stage Renal Disease: Less than 15 mL/min/1.73 square meters Performed By: #### T MIMI, GFR, CMP, MDW, ANEU, ADIFF, CBC, PBNP #### [address] [address] .MDWon 06-08-2023 Monocyte Distribution Width 16.20 Normal 0.00-20.00 [facility] ([place] Comment on above: Result Comment: For ED adult patients suspected of sepsis, MDW<=20.0 does not rule out sepsis or risk of sepsis Performed By: #### T ROPHS, GFR, CMP, MDW, ANEU, ADIFF, CBC, PBNP #### [address] [address] .NEUABSOrdered By: SYSTEM SY STEM on 06-08-2023 Neutrophil, Absolute 3.6 103/mcL Normal 2.9-6.2 AO Workflow SS Comment on above: Performed By: #### T MIMI, GFR, CMP, MDW, ANEU, ADIFF, CBC, PBNP #### [place] [id number] BMPon 06-08-2023 BUN/Creatinine Ratio 17 ratio Normal 7-27 [facility] ([place] Comment on above: Performed By: #### T IMMI, GFR, CMP, MDW, ANEU, ADIFF, CBC, PBNP #### [place] [address] BMPOrdered By: SYSTEM SYSTEM on 06-08-2023 Calcium [Mass/Vol] 8.4 mg/dL Normal 8.4-10.2 AO ADM SS Comment on above: Performed By: #### T MIMI, GFR, CMP, MDW, ANEU, ADIFF, CBC, PBNP #### [place] [id number] Chloride [Moles/Vol] 103 mmol/L Normal 98-107 AO A DM SS Comment on above: Performed By: #### T LEWHS, GFR, CMP, MDW, ANEU, ADIFF, CBC, PBNP #### [place] [id number] CO2 [Moles/Vol] 32 mmol/L High 23-31 AO ADM SS Comment on above: Performed By: #### T LEWHS, GFR, CMP, MDW, ANEU, ADIFF, CBC, PBNP #### [place] [address] [place], [place] [address] Creatinine [Mass/Vol] 1.15 mg/dL Normal 0.70-1.30 AO ADM SS Comment on above: Performed By: #### T MIMI, GFR, CMP, MDW, ANEU, ADIFF, CBC, PBNP #### [place] [address] [address] Electrolyte Balance 5.0 mEq/L Normal 4.0-15.0 AO AD M SS Comment on above: Performed By: #### T LEWHS, GFR, CMP, MDW, ANEU, ADIFF, CBC, PBNP #### [place] [address] [address] Glucose [Mass/Vol] 249 mg/dL High 80-115 AO ADM SS Comment on above: Performed By: #### T MIMI, GFR, CMP, MDW, ANEU, ADIFF, CBC, PBNP #### [place] [address] [address] Potassium [Moles/Vol] 4.2 mmol/L Normal 3.5-5.1 AO ADM SS Comment on above: Performed By: #### T MIMI, GFR, CMP, MDW, ANEU, ADIFF, CBC, PBNP #### [address] [address] Sodium [Moles/Vol] 140 mmol/L Normal 136-145 AO ADM SS Comment on above: Performed By: #### T MIMI, GFR, CMP, MDW, ANEU, ADIFF, CBC, PBNP #### [place] [address] [address] Urea nitrogen [Mass/Vol] 20 mg/dL High 7-18 AO ADM SS Comment on above: Performed By: #### T MIMI, GFR, CMP, MDW, ANEU, ADIFF, CBC, PBNP #### [place] [address] [address] CBCOrdered By: SYSTEM SYSTEM on 06-08-2023 Erythrocyte distribution width (RBC) [Ratio] 13.8 % Normal 11.5-14.5 AO Workflow SS Comment on above: Performed By: #### T LEWHS, GFR, CMP, MDW, ANEU, ADIFF, CBC, PBNP #### [address] [address] Hematocrit (Bld) [Volume fraction] 46.1 % Normal 42.0-52.0 AO Workflow SS Comment on above: Performed By: #### T MIMI, GFR, CMP, MDW, ANEU, ADIFF, CBC, PBNP #### [place] [id number] MCH (RBC) [Entitic mass] 30.4 pg Normal 27.0-31.2 AO Workflow SS Comment on above: Performed By: #### T MIMI, GFR, CMP, MDW, ANEU, ADIFF, CBC, PBNP #### [place] [address] MCHC 34.2 G/dL Normal 31.8-35.4 AO Workflow SS Comment on above: Performed By: #### T MIMI, GFR, CMP, MDW, ANEU, ADIFF, CBC, PBNP #### [place] [id number] MCV (RBC) [Entitic vol] 89.0 fL Normal 80.0-94.0 A O Workflow SS Comment on above: Performed By: #### T MIMI, GFR, CMP, MDW, ANEU, ADIFF, CBC, PBNP #### [address] [address] Platelet mean volume (Bld) [Entitic vol] 7.6 fL Normal 7.4-10.4 AO Workflow SS Comment on above: Performed By: #### T MIMI, GFR, CMP, MDW, ANEU, ADIFF, CBC, PBNP #### [address] [address] CBCon 06-08-2023 Hgb 15.8 G/dL Normal 14.0-18.0 [facility] ([place] Comment on above: Performed By: #### T MIMI, GFR, CMP, MDW, ANEU, ADIFF, CBC, PBNP #### [place] [id number] Platelet 169 10 3/mcL Normal 130-400 [facility] ([place] Comment on above: Performed By: #### T MIMI, GFR, CMP, MDW, ANEU, ADIFF, CBC, PBNP #### [place] [address] [address] RBC 5.18 10 6/mcL Normal 4.04-6.13 [facility] ([place] Comment on above: Performed By: #### T LEWHS, GFR, CMP, MDW, ANEU, ADIFF, CBC, PBNP #### [place] [address] [address] WBC 5.2 10 3/mcL Normal 4.6-10.8 [facility] ([place] Comment on above: Performed By: #### T MIMI, GFR, CMP, MDW, ANEU, ADIFF, CBC, PBNP #### [place] [address] [address] LABORATORYOrdered By: SYSTEM SYSTEM on 06-08-2023 Troponin I.cardiac DL <= 0.01 ng/mL [Mass/Vol] 5.0 ng/L Invalid Interpretation Code 0.0 - 76.2 ng/L AO ADM SS Magnesium [Mass/Vol] 2.0 mg/dL Invalid Interpretation Code 1.8 - 2.4 mg/dL AO ADM SS GFR/1.73 sq M.predicted among blacks MDRD (S/P/Bld) [Vol rate/Area] 78 ml/min/1.73sqm Invalid Interpretation Code AO Chemistry S Comment on above: Interpretive Data: GFR Population mean for , Non- Americans Ages 20-29 = 116 mL/min/1.73 sq.m. Ages 30-39 = 107 mL/min/1.73 sq.m. Ages 40-49 = 99 mL/min/1.73 sq.m. Ages 50-59 = 93 mL/min/1.73 sq.m. Ages 60-69 = 85 mL/min/1.73 sq.m. Ages 70+ = 75 mL/min/1.73 sq.m. Chronic Kidney Disease: Less than 60 mL/min/1.73 square meters End Stage Renal Disease: Less than 15 mL/min/1.73 square meters GFR/1.73 sq M.predicted among non-blacks MDRD (S/P/Bld) [Vol rate/Area] 64 ml/min/1.73sqm Invalid Interpretation Code AO Chemistry S Comment on above: Interpretive Data: GFR Population mean for , Non- Americans Ages 20-29 = 116 mL/min/1.73 sq.m. Ages 30-39 = 107 mL/min/1.73 sq.m. Ages 40-49 = 99 mL/min/1.73 sq.m. Ages 50-59 = 93 mL/min/1.73 sq.m. Ages 60-69 = 85 mL/min/1.73 sq.m. Ages 70+ = 75 mL/min/1.73 sq.m. Chronic Kidney Disease: Less than 60 mL/min/1.73 square meters End Stage Renal Disease: Less than 15 mL/min/1.73 square meters Hemoglobin (Bld) [Mass/Vol] 15.8 G/dL Invalid Interpretation Code 14.0 - 18.0 G/dL AO Workflow SS Monocyte distribution width Auto (Bld) [Entitic vol] 16.20 1 Invalid Interpretation Code 0.00 - 20.00 AO Workflow SS Comment on above: Result Comment: For ED adult patients suspected of sepsis, MDW<=20.0 does not rule out sepsis or risk of sepsis Natriuretic peptide.B prohormone N-Terminal [Mass/Vol] 14 pg/mL Invalid Interpretation Code 0 - 125 pg/mL AO ADM SS Comment on above: Interpretive Data: N T-proBNP results of less than 300 pg/mL effectively rules out acute congestive heart failure with 99% negative predictive value. Platelets (Bld) [#/Vol] 169 103/mcL Invalid Interpretation Code 130 - 400 10^3/mcL AO Workflow SS RBC (Bld) [#/Vol] 5.18 106/mcL Invalid Interpretation Code 4.04 - 6.13 10^6/mcL AO Workflow SS Troponin I.cardiac DL <= 0.01 ng/mL [Mass/Vol] 4.2 ng/L Invalid Interpretation Code 0.0 - 76.2 ng/L AO ADM SS Urea nitrogen/Creatinine [Mass ratio] 17 ratio Invalid Interpretation Code 7 - 27 ratio AO ADM SS WBC (Bld) [#/Vol] 5.2 103/mcL Invalid Interpretation Code 4.6 - 10.8 10^3/mcL AO Workflow SS MGon 06-08-2023 Magnesium [Mass/Vol] 2.0 mg/dL Normal 1.8-2.4 [facility] ([place]) Comment on above: Performed By: #### M G #### [address] [address] PBNPon 06-08-2023 Natriuretic peptide B (Bld) [Mass/Vol] 14 pg/mL Normal 0-125 [facility] ([place]) Comment on above: Result Comment: NT-p roBNP results of less than 300 pg/mL effectively rules out acute congestive heart failure with 99% negative predictive value. Performed By: #### T MIMI, GFR, CMP, MDW, ANEU, ADIFF, CBC, PBNP #### [address] [address] TROPHSon 06-08-2023 Troponin I High Sensitivity 5.0 ng/L Normal 0.0-76.2 [facility] ([place]) Comment on above: Performed By: #### T MIMI, GFR, CMP, MDW, ANEU, ADIFF, CBC, PBNP #### [address] [address] Troponin I High Sensitivity 4.2 ng/L Normal 0.0-76.2 [facility] ([place]) Comment on above: Performed By: #### T MIMI, GFR, CMP, MDW, ANEU, ADIFF, CBC, PBNP #### [address] [address] XR CHEST 1 VIEWon 06-08-2023 XR CHEST 1 VIEW ORIGINAL EXAMINATION: ONE XRAY VIEW OF THE CHEST06/08/2023 1:33 pm COMPARISON: September 14, 2020 HISTORY: ORDERING SYSTEM PROVIDED HISTORY: Reason for Exam: chest pain FINDINGS: The cardiomediastinal contours are normal. There is no consolidation, vascular congestion, pleural effusion, or pneumothorax. There are no acute abnormalities to osseous structures. IMPRESSION: No acute radiographic findings. Interpreted by: Sacha Sellers DO Preliminary Report By: Sacha Sellers DO Electronically signed By Sacha Sellers DO Dictated Date: 06/08/2023 1:38:20 PM Prelim Date: 06/08/2023 1:38:53 PM Sign Date: 06/08/2023 1:38:53 PM Ordering Provider: KRISTAL PRINCE Normal [facility] ([place]) TSHon 05-29-2023 TSH Qn 0.70 m[IU]/L Normal 0.36-3.74 [facility]) Comment on above: Performed By: #### T #### [address] [address] Absolute lymphocyte countOrd ered By: ED PROVIDER on 05-26-2023 Lymphocytes Auto (Unsp spec) [#/Vol] 2.32 10*3/uL 0.83-4.51 [facility] Basophil percentageOrdered B y: ED PROVIDER on 05-26-2023 Basophils/100 WBC (Bld) 0.6 % 0-1 [facility] Eosinophils/100 WBC (Bld) 2.3 % 0-5 [facility] Neutrophils (Bld) [#/Vol] 3.6 10*3/uL 2.0-7.7 [facility] Neutrophils/100 WBC (Bld) 54.7 % 47-70 [facility] WBC (Bld) [#/Vol] 6.6 10*3/uL 4.4-11.0 [facility] Basophil percentageOrdered B y: Christian Sood on 05-26-2023 Chloride [Moles/Vol] 106 mmol/L 98-107 [facility] Glucose [Mass/Vol] 195 mg/dL 74-106 [facility] Comment on above: Fasting Glucose resu lt greater than or equal to 126 mg/dL suggests DIABETES MELLITUS per A.D.A. criteria. Potassium [Moles/Vol] 3.5 mmol/L 3.5-5.1 [facility] Sodium [Moles/Vol] 139 mmol/L 136-145 [facility] Blood erythrocytes count (nu mber/volume)Ordered By: ED PROVIDER on 05-26-2023 RBC (Bld) [#/Vol] 5.14 10*6/uL 4.6-6.2 [facility] Blood hemoglobin measurement (mass/volume)Ordered By: ED PROVIDER on 05-26-2023 Hemoglobin (Bld) [Mass/Vol] 15.5 g/dL 13.0-16.5 [facility] Blood lymphocytes/100 leukoc ytesOrdered By: ED PROVIDER on 05-26-2023 Lymphocytes/100 WBC (Bld) 35.1 % 19-41 [facility] Blood monocytes/100 leukocyt esOrdered By: ED PROVIDER on 05-26-2023 Monocytes/100 WBC (Bld) 6.8 % 0-10 [facility] Blood platelet mean volumeOr dered By: ED PROVIDER on 05-26-2023 Platelet mean volume (Bld) [Entitic vol] 9.6 fL 6.2-12.0 [facility] Determination of erythrocyte mean corpuscular volume (MCV)Ordered By: ED PROVIDER on 05-26-2023 MCV (RBC) [Entitic vol] 90.7 fL 80-94 [facility] Hematocrit Auto (Bld) [Volum e fraction]Ordered By: ED PROVIDER on 05-26-2023 Hematocrit (Bld) [Volume fraction] 46.6 % 40-54 [facility] Laboratory - Chemistry and C hemistry - challengeOrdered By: Christian Sood on 05-26-2023 CO2 [Moles/Vol] 26.0 mmol/L 21.0-32.0 [facility] Urea nitrogen/Creatinine [Mass ratio] 20.4 mg/mg 10-20 [facility] Laboratory - Hematology and Cell countsOrdered By: ED PROVIDER on 05-26-2023 Erythrocyte distribution width (RBC) [Entitic vol] 42.3 fL 35.1-43.9 [facility] Erythrocyte distribution width (RBC) [Ratio] 12.9 % 11.6-14.6 [facility] Immature granulocytes/100 WBC (Bld) 0.500 % 0.0-0.9 [facility] Comment on above: IG% - Immature Granu locytes (promyelocytes, myelocytes and metamyelocytes) > 1% indicates that a LEFT SHIFT is Present. MCH (RBC) [Entitic mass] 30.2 pg 27.0-32.0 [facility] Nucleated RBC/100 WBC (Bld) [Ratio] 0 % 0-5 [facility] MCHC Auto (RBC) [Mass/Vol]Or dered By: ED PROVIDER on 05-26-2023 MCHC (RBC) [Mass/Vol] 33.3 g/dL 32-36 [facility] No Panel InformationOrdered By: Christian Sood on 05-26-2023 Troponin I High Sensitivity 6 pg/mL 3.0-78.0 [facility] Comment on above: Please Note: New [place] t Units and Gender Specific Reference Ranges. For more information see Policy Stat Procedure [place] High Sensitivity Troponin (TNIH) and attachments. Estimated Creatinine Clearance Calc 73.23 ml/min [facility] Estimated GFR (MDRD) Amer 89 mL/min >60 [facility] Comment on above: GFR Calc Estimated GFR (MDRD) Non-Af Amer 73 mL/min >60 [facility] Comment on above: Non- GFR Calc Platelets bldOrdered By: ED PROVIDER on 05-26-2023 Platelets (Bld) [#/Vol] 194 10*3/uL 150-450 [facility] Serum or plasma calcium meek urement (mass/volume)Ordered By: Christian Sood on 05-26-2023 Calcium [Mass/Vol] 8.5 mg/dL 8.5-10.1 [facility] Serum or plasma creatinine m easurement (mass/volume)Ordered By: Christian Sood on 05-26-2023 Creatinine [Mass/Vol] 1.08 mg/dL 0.70-1.30 [facility] Comment on above: The validity of the calculated GFR & GFRAA in patients over 70 years has not been determined. Clinical correlation is essential. Serum or plasma urea nitroge n measurement (mass/volume)Ordered By: Christian Sood on 05-26-2023 Urea nitrogen [Mass/Vol] 22 mg/dL 7-18 [facility] Thin prep Papanicolaou smear with manual screeningOrdered By: Christian Sood on 05-26-2023 Thin prep Papanicolaou smear with manual screening 7 5-15 [facility] Laboratory - Miscellaneous t estsOrdered By: Loki Jain on 04-30-2023 Service comment (Unsp spec) [Interp] Comment . [facility] Comment on above: Levels of Specific I gE Class Description of Class ----- < 0.10 0 Negative 0.10 - 0.31 0/I Equivocal/Low 0.32 - 0.55 I Low 0.56 - 1.40 II Moderate 1.41 - 3.90 III High 3.91 - 19.00 IV Very High 19.01 - 100.00 V Very High >100.00 [facility] No Panel InformationOrdered By: Loki Jain on 04-30-2023 Scallop Allergen <0.10 kU/L Class 0 [facility] Sesame Seed Allergen IgE Antibody <0.10 kU/L Class 0 [facility] Comment on above: Performed at: [address] [id number] Director: Joaquin Ramirez MD, Phone: [phone] Shrimp Allergen <0.10 kU/L Class 0 [facility] Serum black walnut IgE antib bin assay (units/volume)Ordered By: Loki Jain on 04-30-2023 [place] IgE Qn (S) <0.10 kU/L Class 0 [facility] Serum clam IgE antibody assa y (units/volume)Ordered By: Loki Jain on 04-30-2023 Clam IgE Qn (S) <0.10 kU/L Class 0 [facility] Serum codfish IgE antibody a ssay (units/volume)Ordered By: Loki Jain on 04-30-2023 Codfish IgE Qn (S) <0.10 kU/L Class 0 [facility] Serum corn IgE antibody assa y (units/volume)Ordered By: Loki Jain on 04-30-2023 [place] IgE Qn (S) <0.10 kU/L Class 0 [facility] Serum cow milk IgE antibody assay (units/volume)Ordered By: Loki Jain on 04-30-2023 Cow milk IgE Qn (S) 0.12 kU/L Class 0/I [facility] Serum egg white IgE antibody assay (units/volume)Ordered By: Loki Jain on 04-30-2023 Egg white IgE Qn (S) <0.10 kU/L Class 0 [facility] Serum peanut IgE antibody as say (units/volume)Ordered By: Loki Jain on 04-30-2023 Peanut IgE Qn (S) <0.10 kU/L Class 0 [facility] Serum soybean IgE antibody a ssay (units/volume)Ordered By: Loki Jain on 04-30-2023 Soybean IgE Qn (S) <0.10 kU/L Class 0 [facility] Serum wheat IgE antibody ass ay (units/volume)Ordered By: Loki Jain on 04-30-2023 Wheat IgE Qn (S) <0.10 kU/L Class 0 [facility] Absolute lymphocyte countOrd ered By: John Baxter on 03-28-2023 Lymphocytes Auto (Unsp spec) [#/Vol] 2.65 10*3/uL 0.83-4.51 [facility] Basophil percentageOrdered B y: John Baxter on 03-28-2023 Basophils/100 WBC (Bld) 0.6 % 0-1 [facility] Bilirubin [Mass/Vol] 0.80 mg/dL 0.20-1.00 [facility] Comment on above: For patients on eltr ombopag therapy, use of Dimension [place] TBIL is not recommended. Chloride [Moles/Vol] 107 mmol/L 98-107 [facility] Eosinophils/100 WBC (Bld) 1.6 % 0-5 [facility] Glucose [Mass/Vol] 83 mg/dL 74-106 [facility] Neutrophils (Bld) [#/Vol] 3.5 10*3/uL 2.0-7.7 [facility] Neutrophils/100 WBC (Bld) 50.1 % 47-70 [facility] Potassium [Moles/Vol] 4.0 mmol/L 3.5-5.1 [facility] Protein [Mass/Vol] 8.0 g/dL 6.4-8.2 [facility] Sodium [Moles/Vol] 139 mmol/L 136-145 [facility] WBC (Bld) [#/Vol] 6.9 10*3/uL 4.4-11.0 [facility] Blood erythrocytes count (nu mber/volume)Ordered By: John Baxter on 03-28-2023 RBC (Bld) [#/Vol] 5.49 10*6/uL 4.6-6.2 [facility] Blood hemoglobin measurement (mass/volume)Ordered By: John Baxter on 03-28-2023 Hemoglobin (Bld) [Mass/Vol] 16.4 g/dL 13.0-16.5 [facility] Blood lymphocytes/100 leukoc ytesOrdered By: John Baxter on 03-28-2023 Lymphocytes/100 WBC (Bld) 38.2 % 19-41 [facility] Blood monocytes/100 leukocyt esOrdered By: John Baxter on 03-28-2023 Monocytes/100 WBC (Bld) 9.2 % 0-10 [facility] Blood platelet mean volumeOr dered By: John Baxter on 03-28-2023 Platelet mean volume (Bld) [Entitic vol] 10.1 fL 6.2-12.0 [facility] Determination of erythrocyte mean corpuscular volume (MCV)Ordered By: John Baxter on 03-28-2023 MCV (RBC) [Entitic vol] 90.0 fL 80-94 [facility] Hematocrit Auto (Bld) [Volum e fraction]Ordered By: John Baxter on 03-28-2023 Hematocrit (Bld) [Volume fraction] 49.4 % 40-54 [facility] Laboratory - Chemistry and C hemistry - challengeOrdered By: John Baxter on 03-28-2023 ALP [Catalytic activity/Vol] 87 U/L 45-117 [facility] ALT [Catalytic activity/Vol] 41 U/L 16-61 [facility] CO2 [Moles/Vol] 26.0 mmol/L 21.0-32.0 [facility] Globulin (S) [Mass/Vol] 4.2 g/dL 2.2-4.2 [facility] Lipase [Catalytic activity/Vol] 60 U/L 13-75 [facility] Comment on above: Please note:LIPASE r evised reference range effective 23. New Lipase methodology. Expected to produce lower values than the previous assay method. NEW Reference Range: 13 - 75 U/L Urea nitrogen/Creatinine [Mass ratio] 20.0 mg/mg 10-20 [facility] Laboratory - Hematology and Cell countsOrdered By: John Baxter on 03-28-2023 Erythrocyte distribution width (RBC) [Entitic vol] 42.8 fL 35.1-43.9 [facility] Erythrocyte distribution width (RBC) [Ratio] 13.0 % 11.6-14.6 [facility] Immature granulocytes/100 WBC (Bld) 0.300 % 0.0-0.9 [facility] Comment on above: IG% - Immature Granu locytes (promyelocytes, myelocytes and metamyelocytes) > 1% indicates that a LEFT SHIFT is Present. MCH (RBC) [Entitic mass] 29.9 pg 27.0-32.0 [facility] Nucleated RBC/100 WBC (Bld) [Ratio] 0 % 0-5 [facility] MCHC Auto (RBC) [Mass/Vol]Or dered By: John Baxter on 03-28-2023 MCHC (RBC) [Mass/Vol] 33.2 g/dL 32-36 [facility] No Panel InformationOrdered By: John Baxter on 03-28-2023 D-Dimer Quantitative (PE/DVT) < 0.27 FEU/ug/m 0.27-0.49 [facility] Comment on above: NORMAL D-Dimer level (<0.50) indicates no DVT or PE. Estimated Creatinine Clearance Calc 79.08 ml/min [facility] Estimated GFR (MDRD) Amer 97 mL/min >60 [facility] Comment on above: GFR Calc Estimated GFR (MDRD) Non-Af Amer 80 mL/min >60 [facility] Comment on above: Non- GFR Calc Troponin I High Sensitivity 4 pg/mL 3.0-78.0 [facility] Comment on above: Please Note: New [place] t Units and Gender Specific Reference Ranges. For more information see Policy Stat Procedure [place] High Sensitivity Troponin (TNIH) and attachments. Platelets bldOrdered By: Dior Baxter on 03-28-2023 Platelets (Bld) [#/Vol] 187 10*3/uL 150-450 [facility] Serum or plasma albumin meek urement (mass/volume)Ordered By: John Baxter on 03-28-2023 Albumin [Mass/Vol] 3.8 g/dL 3.2-5.0 [facility] Serum or plasma albumin/glob ulin mass ratioOrdered By: John Baxter on 03-28-2023 Albumin/Globulin [Mass ratio] 0.9 {ratio} 0.9-2.4 [facility] Serum or plasma calcium meek urement (mass/volume)Ordered By: John Baxter on 03-28-2023 Calcium [Mass/Vol] 9.4 mg/dL 8.5-10.1 [facility] Serum or plasma creatinine m easurement (mass/volume)Ordered By: John Baxter on 03-28-2023 Creatinine [Mass/Vol] 1.00 mg/dL 0.70-1.30 [facility] Comment on above: The validity of the calculated GFR & GFRAA in patients over 70 years has not been determined. Clinical correlation is essential. Serum or plasma urea nitroge n measurement (mass/volume)Ordered By: John Baxter on 03-28-2023 Urea nitrogen [Mass/Vol] 20 mg/dL 7-18 [facility] Thin prep Papanicolaou smear with manual screeningOrdered By: John Baxter on 03-28-2023 Thin prep Papanicolaou smear with manual screening 22 U/L 15-37 [facility] Thin prep Papanicolaou smear with manual screening 6 5-15 [facility] Absolute lymphocyte countOrd ered By: Dr. Jason on 03-14-2023 Lymphocytes Auto (Unsp spec) [#/Vol] 2.33 10*3/uL 0.83-4.51 [facility] Basophil percentageOrdered B y: Dr. Jason on 03-14-2023 Basophils/100 WBC (Bld) 0.6 % 0-1 [facility] Chloride [Moles/Vol] 106 mmol/L 98-107 [facility] Eosinophils/100 WBC (Bld) 1.7 % 0-5 [facility] Glucose [Mass/Vol] 121 mg/dL 74-106 [facility] Comment on above: Fasting Glucose resu lt from 100 to 125 mg/dL suggests IMPAIRED HOMEOSTASIS per A.D.A. criteria. Neutrophils (Bld) [#/Vol] 3.5 10*3/uL 2.0-7.7 [facility] Neutrophils/100 WBC (Bld) 53.3 % 47-70 [facility] Potassium [Moles/Vol] 3.9 mmol/L 3.5-5.1 [facility] Sodium [Moles/Vol] 141 mmol/L 136-145 [facility] WBC (Bld) [#/Vol] 6.5 10*3/uL 4.4-11.0 [facility] Blood erythrocytes count (nu mber/volume)Ordered By: Dr. Jason on 03-14-2023 RBC (Bld) [#/Vol] 5.52 10*6/uL 4.6-6.2 [facility] Blood hemoglobin measurement (mass/volume)Ordered By: Dr. Jason on 03-14-2023 Hemoglobin (Bld) [Mass/Vol] 16.4 g/dL 13.0-16.5 [facility] Blood lymphocytes/100 leukoc ytesOrdered By: Dr. Jason on 03-14-2023 Lymphocytes/100 WBC (Bld) 36.0 % 19-41 [facility] Blood monocytes/100 leukocyt esOrdered By: Dr. Jason on 03-14-2023 Monocytes/100 WBC (Bld) 8.2 % 0-10 [facility] Blood platelet mean volumeOr dered By: Dr. Jason on 03-14-2023 Platelet mean volume (Bld) [Entitic vol] 10.0 fL 6.2-12.0 [facility] Determination of erythrocyte mean corpuscular volume (MCV)Ordered By: Dr. Jason on 03-14-2023 MCV (RBC) [Entitic vol] 90.2 fL 80-94 [facility] Hematocrit Auto (Bld) [Volum e fraction]Ordered By: Dr. Jason on 03-14-2023 Hematocrit (Bld) [Volume fraction] 49.8 % 40-54 [facility] Laboratory - Chemistry and C hemistry - challengeOrdered By: Dr. Jason on 03-14-2023 CO2 [Moles/Vol] 29.0 mmol/L 21.0-32.0 [facility] Magnesium [Mass/Vol] 2.5 mg/dL 1.6-2.6 [facility] Urea nitrogen/Creatinine [Mass ratio] 25.9 mg/mg 10-20 [facility] Laboratory - Hematology and Cell countsOrdered By: Dr. Jason on 03-14-2023 Erythrocyte distribution width (RBC) [Entitic vol] 42.8 fL 35.1-43.9 [facility] Erythrocyte distribution width (RBC) [Ratio] 12.9 % 11.6-14.6 [facility] Immature granulocytes/100 WBC (Bld) 0.200 % 0.0-0.9 [facility] Comment on above: IG% - Immature Granu locytes (promyelocytes, myelocytes and metamyelocytes) > 1% indicates that a LEFT SHIFT is Present. MCH (RBC) [Entitic mass] 29.7 pg 27.0-32.0 [facility] Nucleated RBC/100 WBC (Bld) [Ratio] 0 % 0-5 [facility] MCHC Auto (RBC) [Mass/Vol]Or dered By: Dr. Jason on 03-14-2023 MCHC (RBC) [Mass/Vol] 32.9 g/dL 32-36 [facility] No Panel InformationOrdered By: Dr. aJson on 03-14-2023 Troponin I High Sensitivity 3 pg/mL 3.0-78.0 [facility] Comment on above: Please Note: New [place] t Units and Gender Specific Reference Ranges. For more information see Policy Stat Procedure [place] High Sensitivity Troponin (TNIH) and attachments. D-Dimer Quantitative (PE/DVT) < 0.27 FEU/ug/m 0.27-0.49 [facility] Comment on above: NORMAL D-Dimer level (<0.50) indicates no DVT or PE. Estimated Creatinine Clearance Calc 70.61 ml/min [facility] Estimated GFR (MDRD) Amer 85 mL/min >60 [facility] Comment on above: GFR Calc Estimated GFR (MDRD) Non-Af Amer 70 mL/min >60 [facility] Comment on above: Non- GFR Calc Platelets bldOrdered By: Dr. Jason on 03-14-2023 Platelets (Bld) [#/Vol] 199 10*3/uL 150-450 [facility] Serum or plasma calcium meek urement (mass/volume)Ordered By: Dr. Jason on 03-14-2023 Calcium [Mass/Vol] 9.4 mg/dL 8.5-10.1 [facility] Serum or plasma creatinine m easurement (mass/volume)Ordered By: Dr. Jason on 03-14-2023 Creatinine [Mass/Vol] 1.12 mg/dL 0.70-1.30 [facility] Comment on above: The validity of the calculated GFR & GFRAA in patients over 70 years has not been determined. Clinical correlation is essential. Serum or plasma urea nitroge n measurement (mass/volume)Ordered By: Dr. Jason on 03-14-2023 Urea nitrogen [Mass/Vol] 29 mg/dL 7-18 [facility] Thin prep Papanicolaou smear with manual screeningOrdered By: Dr. Jason on 03-14-2023 Thin prep Papanicolaou smear with manual screening 6 5-15 [facility] Absolute lymphocyte countOrd ered By: Melyssa Bradshaw on 03-08-2023 Lymphocytes Auto (Unsp spec) [#/Vol] 1.77 10*3/uL 0.83-4.51 [facility] Basophil percentageOrdered B y: Melyssa Bradshaw on 03-08-2023 Basophils/100 WBC (Bld) 0.5 % 0-1 [facility] Chloride [Moles/Vol] 106 mmol/L 98-107 [facility] Eosinophils/100 WBC (Bld) 0.6 % 0-5 [facility] Glucose [Mass/Vol] 142 mg/dL 74-106 [facility] Comment on above: Fasting Glucose resu lt greater than or equal to 126 mg/dL suggests DIABETES MELLITUS per A.D.A. criteria. Neutrophils (Bld) [#/Vol] 5.3 10*3/uL 2.0-7.7 [facility] Neutrophils/100 WBC (Bld) 68.2 % 47-70 [facility] Potassium [Moles/Vol] 3.9 mmol/L 3.5-5.1 [facility] Sodium [Moles/Vol] 140 mmol/L 136-145 [facility] WBC (Bld) [#/Vol] 7.8 10*3/uL 4.4-11.0 [facility] Blood erythrocytes count (nu mber/volume)Ordered By: Melyssa Bradshaw on 03-08-2023 RBC (Bld) [#/Vol] 5.28 10*6/uL 4.6-6.2 [facility] Blood hemoglobin measurement (mass/volume)Ordered By: Melyssa Bradshaw on 03-08-2023 Hemoglobin (Bld) [Mass/Vol] 15.8 g/dL 13.0-16.5 [facility] Blood lymphocytes/100 leukoc ytesOrdered By: Melyssa Bradshaw on 03-08-2023 Lymphocytes/100 WBC (Bld) 22.8 % 19-41 [facility] Blood monocytes/100 leukocyt esOrdered By: Melyssa Bradshaw on 03-08-2023 Monocytes/100 WBC (Bld) 7.6 % 0-10 [facility] Blood platelet mean volumeOr dered By: Melyssa Bradshaw on 03-08-2023 Platelet mean volume (Bld) [Entitic vol] 9.6 fL 6.2-12.0 [facility] Determination of erythrocyte mean corpuscular volume (MCV)Ordered By: Melyssa Bradshaw on 03-08-2023 MCV (RBC) [Entitic vol] 89.6 fL 80-94 [facility] Hematocrit Auto (Bld) [Volum e fraction]Ordered By: Melyssa Bradshaw on 03-08-2023 Hematocrit (Bld) [Volume fraction] 47.3 % 40-54 [facility] Laboratory - Chemistry and C hemistry - challengeOrdered By: Melyssa Bradshaw on 03-08-2023 CO2 [Moles/Vol] 27.0 mmol/L 21.0-32.0 [facility] Urea nitrogen/Creatinine [Mass ratio] 20.0 mg/mg 10-20 [facility] Laboratory - Hematology and Cell countsOrdered By: Melyssa Bradshaw on 03-08-2023 Erythrocyte distribution width (RBC) [Entitic vol] 42.7 fL 35.1-43.9 [facility] Erythrocyte distribution width (RBC) [Ratio] 13.0 % 11.6-14.6 [facility] Immature granulocytes/100 WBC (Bld) 0.300 % 0.0-0.9 [facility] Comment on above: IG% - Immature Granu locytes (promyelocytes, myelocytes and metamyelocytes) > 1% indicates that a LEFT SHIFT is Present. MCH (RBC) [Entitic mass] 29.9 pg 27.0-32.0 [facility] Nucleated RBC/100 WBC (Bld) [Ratio] 0 % 0-5 [facility] MCHC Auto (RBC) [Mass/Vol]Or dered By: Melyssa Bradshaw on 03-08-2023 MCHC (RBC) [Mass/Vol] 33.4 g/dL 32-36 [facility] No Panel InformationOrdered By: Melyssa Bradshaw on 03-08-2023 Troponin I High Sensitivity 5 pg/mL 3.0-78.0 [facility] Comment on above: Please Note: New [place]elv[place] t Units and Gender Specific Reference Ranges. For more information see Policy Stat Procedure [place] High Sensitivity Troponin (TNIH) and attachments. D-Dimer Quantitative (PE/DVT) < 0.27 FEU/ug/m 0.27-0.49 [facility] Comment on above: NORMAL D-Dimer level (<0.50) indicates no DVT or PE. Estimated Creatinine Clearance Calc 71.89 ml/min [facility] Estimated GFR (MDRD) Amer 87 mL/min >60 [facility] Comment on above: GFR Calc Estimated GFR (MDRD) Non-Af Amer 72 mL/min >60 [facility] Comment on above: Non- GFR Calc Platelets bldOrdered By: Arsenio Bradshaw on 03-08-2023 Platelets (Bld) [#/Vol] 186 10*3/uL 150-450 [facility] Serum or plasma calcium meek urement (mass/volume)Ordered By: Melyssa Bradshaw on 03-08-2023 Calcium [Mass/Vol] 9.3 mg/dL 8.5-10.1 [facility] Serum or plasma creatinine m easurement (mass/volume)Ordered By: Melyssa Bradshaw on 03-08-2023 Creatinine [Mass/Vol] 1.10 mg/dL 0.70-1.30 [facility] Comment on above: The validity of the calculated GFR & GFRAA in patients over 70 years has not been determined. Clinical correlation is essential. Serum or plasma urea nitroge n measurement (mass/volume)Ordered By: Melyssa Bradshaw on 03-08-2023 Urea nitrogen [Mass/Vol] 22 mg/dL 7-18 [facility] Thin prep Papanicolaou smear with manual screeningOrdered By: Melyssa Bradshaw on 03-08-2023 Thin prep Papanicolaou smear with manual screening 7 5-15 [facility] Absolute lymphocyte countOrd ered By: Bandar Kasper on 02-14-2023 Lymphocytes Auto (Unsp spec) [#/Vol] 2.62 10*3/uL 0.83-4.51 [facility] Basophil percentageOrdered B y: Bandar Kasper on 02-14-2023 Basophils/100 WBC (Bld) 0.7 % 0-1 [facility] Chloride [Moles/Vol] 106 mmol/L 98-107 [facility] Eosinophils/100 WBC (Bld) 2.8 % 0-5 [facility] Glucose [Mass/Vol] 121 mg/dL 74-106 [facility] Comment on above: Fasting Glucose resu lt from 100 to 125 mg/dL suggests IMPAIRED HOMEOSTASIS per A.D.A. criteria. Neutrophils (Bld) [#/Vol] 2.3 10*3/uL 2.0-7.7 [facility] Neutrophils/100 WBC (Bld) 39.8 % 47-70 [facility] Potassium [Moles/Vol] 4.2 mmol/L 3.5-5.1 [facility] Sodium [Moles/Vol] 136 mmol/L 136-145 [facility] WBC (Bld) [#/Vol] 5.7 10*3/uL 4.4-11.0 [facility] Blood erythrocytes count (nu mber/volume)Ordered By: Bandar Kasper on 02-14-2023 RBC (Bld) [#/Vol] 5.14 10*6/uL 4.6-6.2 [facility] Blood hemoglobin measurement (mass/volume)Ordered By: Bandar Kasper on 02-14-2023 Hemoglobin (Bld) [Mass/Vol] 15.5 g/dL 13.0-16.5 [facility] Blood lymphocytes/100 leukoc ytesOrdered By: Bandar Kaspre on 02-14-2023 Lymphocytes/100 WBC (Bld) 46.0 % 19-41 [facility] Blood monocytes/100 leukocyt esOrdered By: Bandar Kasper on 02-14-2023 Monocytes/100 WBC (Bld) 10.5 % 0-10 [facility] Blood platelet mean volumeOr dered By: Bandar Kasper on 02-14-2023 Platelet mean volume (Bld) [Entitic vol] 9.4 fL 6.2-12.0 [facility] Determination of erythrocyte mean corpuscular volume (MCV)Ordered By: Bandar Kasper on 02-14-2023 MCV (RBC) [Entitic vol] 90.7 fL 80-94 [facility] Hematocrit Auto (Bld) [Volum e fraction]Ordered By: Bandar Kasper on 02-14-2023 Hematocrit (Bld) [Volume fraction] 46.6 % 40-54 [facility] Laboratory - Chemistry and C hemistry - challengeOrdered By: Bandar Kasper on 02-14-2023 CO2 [Moles/Vol] 28.0 mmol/L 21.0-32.0 [facility] Magnesium [Mass/Vol] 2.1 mg/dL 1.6-2.6 [facility] Urea nitrogen/Creatinine [Mass ratio] 26.0 mg/mg 10-20 [facility] Laboratory - Hematology and Cell countsOrdered By: Bandar Kasper on 02-14-2023 Erythrocyte distribution width (RBC) [Entitic vol] 43.6 fL 35.1-43.9 [facility] Erythrocyte distribution width (RBC) [Ratio] 13.1 % 11.6-14.6 [facility] Immature granulocytes/100 WBC (Bld) 0.200 % 0.0-0.9 [facility] Comment on above: IG% - Immature Granu locytes (promyelocytes, myelocytes and metamyelocytes) > 1% indicates that a LEFT SHIFT is Present. MCH (RBC) [Entitic mass] 30.2 pg 27.0-32.0 [facility] Nucleated RBC/100 WBC (Bld) [Ratio] 0 % 0-5 [facility] MCHC Auto (RBC) [Mass/Vol]Or dered By: Bandar Kasper on 02-14-2023 MCHC (RBC) [Mass/Vol] 33.3 g/dL 32-36 [facility] No Panel InformationOrdered By: Bandar Kasper on 02-14-2023 Estimated Creatinine Clearance Calc 82.38 ml/min [facility] Estimated GFR (MDRD) Amer 102 mL/min >60 [facility] Comment on above: GFR Calc Estimated GFR (MDRD) Non-Af Amer 84 mL/min >60 [facility] Comment on above: Non- GFR Calc Thyroid Stimulating Hormone (TSH) 2.39 uIU/mL 0.358-3.74 [facility] Troponin I High Sensitivity 4 pg/mL 3.0-78.0 [facility] Comment on above: Please Note: New [place] t Units and Gender Specific Reference Ranges. For more information see Policy Stat Procedure [place] High Sensitivity Troponin (TNIH) and attachments. Platelets bldOrdered By: Perico Kasper on 02-14-2023 Platelets (Bld) [#/Vol] 171 10*3/uL 150-450 [facility] Serum or plasma calcium meek urement (mass/volume)Ordered By: Bandar Kasper on 02-14-2023 Calcium [Mass/Vol] 8.7 mg/dL 8.5-10.1 [facility] Serum or plasma creatinine m easurement (mass/volume)Ordered By: Bandar Kasper on 02-14-2023 Creatinine [Mass/Vol] 0.96 mg/dL 0.70-1.30 [facility] Comment on above: The validity of the calculated GFR & GFRAA in patients over 70 years has not been determined. Clinical correlation is essential. Serum or plasma urea nitroge n measurement (mass/volume)Ordered By: Bandar Kasper on 02-14-2023 Urea nitrogen [Mass/Vol] 25 mg/dL 7-18 [facility] Thin prep Papanicolaou smear with manual screeningOrdered By: Bandar Kasper on 02-14-2023 Thin prep Papanicolaou smear with manual screening 2 5-15 [facility] Whole blood hemoglobin A1c/t otal hemoglobin ratio (mass fraction)Ordered By: Dr. Estes on 02-04-2023 HbA1c (Bld) [Mass fraction] 5.5 % 3.8-5.6 [facility] Comment on above: Normal < 5.7 % Predi abetic 5.7 - 6.4 % Diabetic >or= 6.5 % Please note range changes. Absolute lymphocyte countOrd ered By: Dr. Gomez on 11-06-2022 Lymphocytes Auto (Unsp spec) [#/Vol] 2.13 10*3/uL 0.83-4.51 [facility] Basophil percentageOrdered B y: Dr. Gomez on 11-06-2022 Basophils/100 WBC (Bld) 0.5 % 0-1 [facility] Bilirubin [Mass/Vol] 1.10 mg/dL 0.20-1.00 [facility] Comment on above: For patients on eltr ombopag therapy, use of Dimension [place] TBIL is not recommended. Chloride [Moles/Vol] 108 mmol/L 98-107 [facility] Eosinophils/100 WBC (Bld) 1.6 % 0-5 [facility] Glucose [Mass/Vol] 130 mg/dL 74-106 [facility] Comment on above: Fasting Glucose resu lt greater than or equal to 126 mg/dL suggests DIABETES MELLITUS per A.D.A. criteria. Neutrophils (Bld) [#/Vol] 2.7 10*3/uL 2.0-7.7 [facility] Neutrophils/100 WBC (Bld) 49.4 % 47-70 [facility] Potassium [Moles/Vol] 3.9 mmol/L 3.5-5.1 [facility] Protein [Mass/Vol] 7.7 g/dL 6.4-8.2 [facility] Sodium [Moles/Vol] 140 mmol/L 136-145 [facility] WBC (Bld) [#/Vol] 5.5 10*3/uL 4.4-11.0 [facility] Blood erythrocytes count (nu mber/volume)Ordered By: Dr. Gomez on 11-06-2022 RBC (Bld) [#/Vol] 5.33 10*6/uL 4.6-6.2 [facility] Blood hemoglobin measurement (mass/volume)Ordered By: Dr. Gomez on 11-06-2022 Hemoglobin (Bld) [Mass/Vol] 15.9 g/dL 13.0-16.5 [facility] Blood lymphocytes/100 leukoc ytesOrdered By: Dr. Gomez on 11-06-2022 Lymphocytes/100 WBC (Bld) 38.9 % 19-41 [facility] Blood monocytes/100 leukocyt esOrdered By: Dr. Gomez on 11-06-2022 Monocytes/100 WBC (Bld) 9.1 % 0-10 [facility] Blood platelet mean volumeOr dered By: Dr. Gomez on 11-06-2022 Platelet mean volume (Bld) [Entitic vol] 9.3 fL 6.2-12.0 [facility] Determination of erythrocyte mean corpuscular volume (MCV)Ordered By: Dr. Gomez on 11-06-2022 MCV (RBC) [Entitic vol] 89.1 fL 80-94 [facility] Hematocrit Auto (Bld) [Volum e fraction]Ordered By: Dr. Gomez on 11-06-2022 Hematocrit (Bld) [Volume fraction] 47.5 % 40-54 [facility] Laboratory - Chemistry and C hemistry - challengeOrdered By: Dr. Gomez on 11-06-2022 ALP [Catalytic activity/Vol] 59 U/L 45-117 [facility] ALT [Catalytic activity/Vol] 40 U/L 16-61 [facility] CO2 [Moles/Vol] 26.0 mmol/L 21.0-32.0 [facility] Globulin (S) [Mass/Vol] 3.8 g/dL 2.2-4.2 [facility] Urea nitrogen/Creatinine [Mass ratio] 19.6 mg/mg 10-20 [facility] Laboratory - Hematology and Cell countsOrdered By: Dr. Gomez on 11-06-2022 Erythrocyte distribution width (RBC) [Entitic vol] 43.4 fL 35.1-43.9 [facility] Erythrocyte distribution width (RBC) [Ratio] 13.3 % 11.6-14.6 [facility] Immature granulocytes/100 WBC (Bld) 0.500 % 0.0-0.9 [facility] Comment on above: IG% - Immature Granu locytes (promyelocytes, myelocytes and metamyelocytes) > 1% indicates that a LEFT SHIFT is Present. MCH (RBC) [Entitic mass] 29.8 pg 27.0-32.0 [facility] Nucleated RBC/100 WBC (Bld) [Ratio] 0 % 0-5 [facility] Auto (RBC) [Mass/Vol]Or dered By: Dr. Gomez on 11-06-2022 MCHC (RBC) [Mass/Vol] 33.5 g/dL 32-36 [facility] No Panel InformationOrdered By: Dr. Gomez on 11-06-2022 Troponin I High Sensitivity 5 pg/mL 3.0-78.0 [facility] Comment on above: Please Note: New [place] t Units and Gender Specific Reference Ranges. For more information see Policy Stat Procedure [place] High Sensitivity Troponin (TNIH) and attachments. D-Dimer Quantitative (PE/DVT) < 0.27 FEU/ug/m 0.27-0.49 [facility] Comment on above: NORMAL D-Dimer level (<0.50) indicates no DVT or PE. Estimated Creatinine Clearance Calc 73.91 ml/min [facility] Estimated GFR (MDRD) Amer 90 mL/min >60 [facility] Comment on above: GFR Calc Estimated GFR (MDRD) Non-Af Amer 74 mL/min >60 [facility] Comment on above: Non- GFR Calc Platelets bldOrdered By: Dr. Gomez on 11-06-2022 Platelets (Bld) [#/Vol] 193 10*3/uL 150-450 [facility] Serum or plasma albumin meek urement (mass/volume)Ordered By: Dr. Gomez on 11-06-2022 Albumin [Mass/Vol] 3.9 g/dL 3.2-5.0 [facility] Serum or plasma albumin/glob ulin mass ratioOrdered By: Dr. Gomez on 11-06-2022 Albumin/Globulin [Mass ratio] 1.0 {ratio} 0.9-2.4 [facility] Serum or plasma calcium meek urement (mass/volume)Ordered By: Dr. Gomez on 11-06-2022 Calcium [Mass/Vol] 9.0 mg/dL 8.5-10.1 [facility] Serum or plasma creatinine m easurement (mass/volume)Ordered By: Dr. Gomez on 11-06-2022 Creatinine [Mass/Vol] 1.07 mg/dL 0.70-1.30 [facility] Comment on above: The validity of the calculated GFR & GFRAA in patients over 70 years has not been determined. Clinical correlation is essential. Serum or plasma urea nitroge n measurement (mass/volume)Ordered By: Dr. Gomez on 11-06-2022 Urea nitrogen [Mass/Vol] 21 mg/dL 7-18 [facility] Thin prep Papanicolaou smear with manual screeningOrdered By: Dr. Gomez on 11-06-2022 Thin prep Papanicolaou smear with manual screening 20 U/L 15-37 [facility] Thin prep Papanicolaou smear with manual screening 6 5-15 [facility] LABORATORYOrdered By: Aleah Hall on 10-18-2022 Cholesterol [Mass/Vol] 195 mg/dL Invalid Interpretation Code 0 - 200 mg/dL AO ADM SS Cholesterol in HDL [Mass/Vol] 38 mg/dL Invalid Interpretation Code 40 - 60 mg/dL AO ADM SS Cholesterol in LDL [Mass/Vol] 108 mg/dL Invalid Interpretation Code 0 - 130 mg/dL AO ADM SS Triglyceride [Mass/Vol] 243 mg/dL Invalid Interpretation Code 0 - 150 mg/dL AO ADM SS LABORATORYOrdered By: SYSTEM SYSTEM on 10-18-2022 Prostate specific Ag [Mass/Vol] 1.11 ng/mL Invalid Interpretation Code 0.00 - 4.00 ng/mL AO ADM SS Erythrocyte sedimentation ra teOrdered By: Dr. Estes on 09-27-2022 ESR (Bld) [Velocity] 5 mm/h 0-20 [facility] Laboratory - Chemistry and C hemistry - challengeOrdered By: Dr. Estes on 09-27-2022 Cobalamin (Vitamin B12) [Mass/Vol] 619 pg/mL 211-911 [facility] No Panel InformationOrdered By: Dr. Estes on 09-27-2022 Whole Blood Vitamin B1 Level 185.8 nmol/L 66.5-200.0 [facility] Comment on above: Performed at: [address] [id number] Director: Joaquin Ramirez MD, Phone: [phone] Serum or plasma folate measu rement (mass/volume)Ordered By: Dr. Estes on 09-27-2022 Folate [Mass/Vol] 32.90 ng/mL 3.1-55.4 [facility] No Panel InformationOrdered By: HARDWARE TECHNICIAN Quynh Hutton on 08-28-2022 D-Dimer Quantitative (PE/DVT) 0.28 FEU/ug/m 0.27-0.49 [facility] Comment on above: NORMAL D-Dimer level (<0.50) indicates no DVT or PE. Absolute lymphocyte countOrd ered By: Dr. Chou on 08-26-2022 Lymphocytes Auto (Unsp spec) [#/Vol] 2.83 10*3/uL 0.83-4.51 [facility] Basophil percentageOrdered B y: Dr. Chou on 08-26-2022 Basophils/100 WBC (Bld) 0.4 % 0-1 [facility] Chloride [Moles/Vol] 106 mmol[facility]L 98-107 [facility] Eosinophils/100 WBC (Bld) 2.0 % 0-5 [facility] Glucose [Mass/Vol] 94 mg/dL 74-106 [facility] Neutrophils (Bld) [#/Vol] 3.5 10*3/uL 2.0-7.7 [facility] Neutrophils/100 WBC (Bld) 49.6 % 47-70 [facility] Potassium [Moles/Vol] 4.0 mmol/L 3.5-5.1 [facility] Sodium [Moles/Vol] 140 mmol/L 136-145 [facility] WBC (Bld) [#/Vol] 7.1 10*3/uL 4.4-11.0 [facility] Blood erythrocytes count (nu mber/volume)Ordered By: Dr. Chou on 08-26-2022 RBC (Bld) [#/Vol] 5.39 10*6/uL 4.6-6.2 [facility] Blood hemoglobin measurement (mass/volume)Ordered By: Dr. Chou on 08-26-2022 Hemoglobin (Bld) [Mass/Vol] 15.9 g/dL 13.0-16.5 [facility] Blood lymphocytes/100 leukoc ytesOrdered By: Dr. Chou on 08-26-2022 Lymphocytes/100 WBC (Bld) 39.7 % 19-41 [facility] Blood monocytes/100 leukocyt esOrdered By: Dr. Chou on 08-26-2022 Monocytes/100 WBC (Bld) 8.0 % 0-10 [facility] Blood platelet mean volumeOr dered By: Dr. Chou on 08-26-2022 Platelet mean volume (Bld) [Entitic vol] 9.6 fL 6.2-12.0 [facility] Determination of erythrocyte mean corpuscular volume (MCV)Ordered By: Dr. Chou on 08-26-2022 MCV (RBC) [Entitic vol] 89.2 fL 80-94 [facility] Hematocrit Auto (Bld) [Volum e fraction]Ordered By: Dr. Chou on 08-26-2022 Hematocrit (Bld) [Volume fraction] 48.1 % 40-54 [facility] Laboratory - Chemistry and C hemistry - challengeOrdered By: Dr. Chou on 08-26-2022 CO2 [Moles/Vol] 28.0 mmol/L 21.0-32.0 [facility] Urea nitrogen/Creatinine [Mass ratio] 18.6 mg/mg 10-20 [facility] Laboratory - Hematology and Cell countsOrdered By: Dr. Chou on 08-26-2022 Erythrocyte distribution width (RBC) [Entitic vol] 43.9 fL 35.1-43.9 [facility] Erythrocyte distribution width (RBC) [Ratio] 13.4 % 11.6-14.6 [facility] Immature granulocytes/100 WBC (Bld) 0.300 % 0.0-0.9 [facility] Comment on above: IG% - Immature Granu locytes (promyelocytes, myelocytes and metamyelocytes) > 1% indicates that a LEFT SHIFT is Present. MCH (RBC) [Entitic mass] 29.5 pg 27.0-32.0 [facility] Nucleated RBC/100 WBC (Bld) [Ratio] 0 % 0-5 [facility] MCHC Auto (RBC) [Mass/Vol]Or dered By: Dr. Chou on 08-26-2022 MCHC (RBC) [Mass/Vol] 33.1 g/dL 32-36 [facility] Comment on above: Delta: 35.0 on 08/24-2 No Panel InformationOrdered By: Dr. Chou on 08-26-2022 Troponin I High Sensitivity 5 pg/mL 3.0-78.0 [facility] Comment on above: Please Note: New [place] t Units and Gender Specific Reference Ranges. For more information see Policy Stat Procedure [place] High Sensitivity Troponin (TNIH) and attachments. Estimated Creatinine Clearance Calc 77.53 ml/min [facility] Estimated GFR (MDRD) Amer 95 mL/min >60 [facility] Comment on above: GFR Calc Estimated GFR (MDRD) Non-Af Amer 79 mL/min >60 [facility] Comment on above: Non- GFR Calc Platelets bldOrdered By: Dr. Chou on 08-26-2022 Platelets (Bld) [#/Vol] 189 10*3/uL 150-450 [facility] Serum or plasma calcium meek urement (mass/volume)Ordered By: Dr. Chou on 08-26-2022 Calcium [Mass/Vol] 9.3 mg/dL 8.5-10.1 [facility] Serum or plasma creatinine m easurement (mass/volume)Ordered By: Dr. Chou on 08-26-2022 Creatinine [Mass/Vol] 1.02 mg/dL 0.70-1.30 [facility] Comment on above: The validity of the calculated GFR & GFRAA in patients over 70 years has not been determined. Clinical correlation is essential. Serum or plasma urea nitroge n measurement (mass/volume)Ordered By: Dr. Chou on 08-26-2022 Urea nitrogen [Mass/Vol] 19 mg/dL 7-18 [facility] Thin prep Papanicolaou smear with manual screeningOrdered By: Dr. Chou on 08-26-2022 Thin prep Papanicolaou smear with manual screening 6 5-15 [facility] Basophil percentageOrdered B y: Aidee Vega on 08-24-2022 Chloride [Moles/Vol] 103 mmol/L 98-107 [facility] Glucose [Mass/Vol] 167 mg/dL 74-106 [facility] Comment on above: Fasting Glucose resu lt greater than or equal to 126 mg/dL suggests DIABETES MELLITUS per A.D.A. criteria. Potassium [Moles/Vol] 3.8 mmol/L 3.5-5.1 [facility] Sodium [Moles/Vol] 139 mmol/L 136-145 [facility] WBC (Bld) [#/Vol] 5.8 10*3/uL 4.4-11.0 [facility] Blood erythrocytes count (nu mber/volume)Ordered By: Aidee Vega on 08-24-2022 RBC (Bld) [#/Vol] 5.52 10*6/uL 4.6-6.2 [facility] Blood hemoglobin measurement (mass/volume)Ordered By: Aidee Vega on 08-24-2022 Hemoglobin (Bld) [Mass/Vol] 17.1 g/dL 13.0-16.5 [facility] Blood platelet mean volumeOr dered By: Aidee Vega on 08-24-2022 Platelet mean volume (Bld) [Entitic vol] 9.8 fL 6.2-12.0 [facility] Determination of erythrocyte mean corpuscular volume (MCV)Ordered By: Aidee Vega on 08-24-2022 MCV (RBC) [Entitic vol] 88.6 fL 80-94 [facility] Hematocrit Auto (Bld) [Volum e fraction]Ordered By: Aidee Vega on 08-24-2022 Hematocrit (Bld) [Volume fraction] 48.9 % 40-54 [facility] Laboratory - Chemistry and C hemistry - challengeOrdered By: Aidee Vega on 08-24-2022 CO2 [Moles/Vol] 31.0 mmol/L 21.0-32.0 [facility] Magnesium [Mass/Vol] 2.4 mg/dL 1.6-2.6 [facility] T4 [Mass/Vol] 8.1 ug/dL 4.5-12.1 [facility] Urea nitrogen/Creatinine [Mass ratio] 17.3 mg/mg 10-20 [facility] Laboratory - Hematology and Cell countsOrdered By: Aidee Vega on 08-24-2022 Erythrocyte distribution width (RBC) [Entitic vol] 44.2 fL 35.1-43.9 [facility] Erythrocyte distribution width (RBC) [Ratio] 13.5 % 11.6-14.6 [facility] MCH (RBC) [Entitic mass] 31.0 pg 27.0-32.0 [facility] MCHC Auto (RBC) [Mass/Vol]Or dered By: Aidee Vega on 08-24-2022 MCHC (RBC) [Mass/Vol] 35.0 g/dL 32-36 [facility] No Panel InformationOrdered By: Aidee Vega on 08-24-2022 Estimated GFR (MDRD) Amer 87 mL/min >60 [facility] Comment on above: GFR Calc Estimated GFR (MDRD) Non-Af Amer 72 mL/min >60 [facility] Comment on above: Non- GFR Calc Thyroid Stimulating Hormone (TSH) 1.08 uIU/mL 0.358-3.74 [facility] Platelets bldOrdered By: Nathanael Vega on 08-24-2022 Platelets (Bld) [#/Vol] 187 10*3/uL 150-450 [facility] Serum or plasma calcium meek urement (mass/volume)Ordered By: Aidee Vega on 08-24-2022 Calcium [Mass/Vol] 9.0 mg/dL 8.5-10.1 [facility] Serum or plasma creatinine m easurement (mass/volume)Ordered By: Aidee Vega on 08-24-2022 Creatinine [Mass/Vol] 1.10 mg/dL 0.70-1.30 [facility] Comment on above: The validity of the calculated GFR & GFRAA in patients over 70 years has not been determined. Clinical correlation is essential. Serum or plasma urea nitroge n measurement (mass/volume)Ordered By: Aidee Vega on 08-24-2022 Urea nitrogen [Mass/Vol] 19 mg/dL 7-18 [facility] Thin prep Papanicolaou smear with manual screeningOrdered By: Aidee Vega on 08-24-2022 Thin prep Papanicolaou smear with manual screening 5 5-15 [facility] Basophil percentageon 2021 Creatinine [Mass/Vol] 1.0 mg/dL 0.70-1.30 [facility] Work Phone: No Panel Informationon 06-20 Bedside Estimated GFR (eGFR) > 60.0000 mL/min >60 [facility] Work Phone: Basophil percentageon 2021 Basophil percentage < 0.9 mg/dL 0.70-1.30 [facility] Work Phone: No Panel Informationon 03-08 Bedside Estimated GFR (eGFR) > 60.0000 mL/min >60 [facility] Work Phone: Vital Signs Date Time Vital Sign Value Performing Clinician Facility 07-15-2025 16:35-0400 Diastolic blood pressure 78 mm[Hg] Dr. Mitchel Morel DO Work Phone: 1(077)465-875578 [place] [address] 07-15-2025 16:35-0400 Heart rate 102 /min Dr. Mitchel Morel DO Work Phone: 6(721)216-537278 [place] [address] 07-15-2025 16:35-0400 Systolic blood pressure 124 mm[Hg] Dr. Mitchel Morel DO Work Phone: 4(817)131-014667 [place] [address] 07-15-2025 14:52-0400 Body height 177.[address] Mitchel Morel DO Work Phone: 2(508)324-134567 [place] [address] 07-15-2025 14:52-0400 Body mass index (BMI) [Ratio] 31.4 kg/m2 Dr. Mitchel Morel DO Work Phone: 9(963)692-462978 [place] [address] 07-15-2025 14:52-0400 Body temperature 98.6 [degF] Dr. Mitchel Morel DO Work Phone: 1(437)550-591578 [place] [address] 07-15-2025 14:52-0400 Body weight 99.[address] Mitchel Morel DO Work Phone: 7(864)176-917078 [place] [address] 07-15-2025 14:52-0400 Respiratory rate 16 /min Dr. Mitchel Morel DO Work Phone: 1(286)972-465078 [place] [address] 07-15-2025 14:52-0400 SaO2% (BldA) [Mass fraction] 98 % Dr. Mitchel Morel DO Work Phone: [facility] 07-14-2025 16:19-0400 Body mass index (BMI) [Ratio] 31.4 kg/m2 Dr. Mitchel Morel DO Work Phone: 7(529)816-933678 [place] [address] 07-14-2025 15:50-0400 Body temperature 98 [degF] Dr. Mitchel Morel DO Work Phone: 3(206)235-484378 [place] [address] 07-14-2025 15:50-0400 Diastolic blood pressure 68 mm[Hg] Dr. Mitchel Morel DO Work Phone: 6(674)374-627878 [place] [address] 07-14-2025 15:50-0400 Heart rate 74 /min Dr. Mitchel Morel DO Work Phone: 0(901)884-509678 [place] [address] 07-14-2025 15:50-0400 Respiratory rate 17 /min Dr. Mitchel Moerl DO Work Phone: 3(650)177-058378 [place] [address] 07-14-2025 15:50-0400 SaO2% (BldA) [Mass fraction] 97 % Dr. Mitchel Morel DO Work Phone: 0(394)671-159978 [place] [address] 07-14-2025 15:50-0400 Systolic blood pressure 132 mm[Hg] Dr. Mitchel Morel DO Work Phone: 5(726)062-347478 [place] [address] 07-14-2025 15:15-0400 Body weight 99.[address] Mitchel Morel DO Work Phone: 7(512)036-001678 [place] [address] 05-24-2025 13:47-0400 Body height 177.[address] Mitchel Morel DO Work Phone: 0(535)855-024478 [place] [address] 05-24-2025 13:47-0400 Body mass index (BMI) [Ratio] 31.5 kg/m2 Dr. Mitchel Morel DO Work Phone: 9(151)504-190878 [place] [address] 05-24-2025 13:47-0400 Body temperature 98.4 [degF] Dr. Mitchel Morel DO Work Phone: 5(061)015-948178 [place] [address] 05-24-2025 13:47-0400 Body weight 99.[address] Mitchel Morel DO Work Phone: 0(484)949-729278 [place] [address] 05-24-2025 13:47-0400 Diastolic blood pressure 82 mm[Hg] Dr. Mitchel Morel DO Work Phone: 0(678)864-130478 [place] [address] 05-24-2025 13:47-0400 Heart rate 81 /min Dr. Mitchel Morel DO Work Phone: 3(612)179-613778 [place] [address] 05-24-2025 13:47-0400 Respiratory rate 17 /min Dr. Mitchel Morel DO Work Phone: 5(308)945-266578 [place] [address] 05-24-2025 13:47-0400 SaO2% (BldA) [Mass fraction] 97 % Dr. Mitchel Morel DO Work Phone: 3(508)003-333778 [place] [address] 05-24-2025 13:47-0400 Systolic blood pressure 138 mm[Hg] Dr. Mitchel Morel DO Work Phone: 3(872)543-236878 [place] [address] 03-26-2025 14:00-0400 Diastolic blood pressure 75 mm[Hg] Dr. Mitchel Morel DO Work Phone: 8(476)399-458667 [place] [address] 03-26-2025 14:00-0400 Heart rate 82 /min Dr. Mitchel Morel DO Work Phone: 5(091)618-346078 [place] [address] 03-26-2025 14:00-0400 Respiratory rate 18 /min Dr. Mitchel Morel DO Work Phone: 2(227)701-411678 [place] [address] 03-26-2025 14:00-0400 SaO2% (BldA) [Mass fraction] 99 % Dr. Mitchel Morel DO Work Phone: 6(918)158-454378 [place] [address] 03-26-2025 14:00-0400 Systolic blood pressure 127 mm[Hg] Dr. Mitchel Morel DO Work Phone: 4(775)287-453578 [place] [address] 03-26-2025 10:45-0400 Body height 177.[address] Mitchel Morel DO Work Phone: 2(054)031-655678 [place] [address] 03-26-2025 10:45-0400 Body mass index (BMI) [Ratio] 30.7 kg/m2 Dr. Mitchel Morel DO Work Phone: 2(820)706-176678 [place] [address] 03-26-2025 10:45-0400 Body temperature 97.6 [degF] Dr. Mitchel Morel DO Work Phone: 6(231)172-349478 [place] [address] 03-26-2025 10:45-0400 Body weight 97.[address] Mitchel Morel DO Work Phone: [facility] 02-21-2024 15:14-0400 Diastolic Blood Pressure Non-Invasive 78 mm[Hg] DR AIDEE SAMUEL MD [address] [place] [address] 02-21-2024 15:14-0400 Heart rate 80 /min DR AIDEE SAMUEL MD [address] [place] [address] 02-21-2024 15:14-0400 Respiratory rate 16 /min DR AIDEE SAMUEL MD [address] [place] [address] 02-21-2024 15:14-0400 Systolic Blood Pressure Non-Invasive 112 mm[Hg] DR AIDEE SAMUEL MD [address] [place] [address] 02-21-2024 14:53-0400 Heart rate 78 /min DR AIDEE SAMUEL MD [address] [place] [address] 02-21-2024 14:53-0400 Respiratory rate 16 /min DR AIDEE SAMUEL MD [address] [place] [address] 02-21-2024 12:10-0400 Diastolic Blood Pressure Non-Invasive 80 mm[Hg] DR AIDEE SAMUEL MD [address] [place] [address] 02-21-2024 12:10-0400 Heart rate 78 /min DR AIDEE SAMUEL MD [address] [place] [address] 02-21-2024 12:10-0400 Respiratory rate 16 /min DR AIDEE SAMUEL MD [address] [place] [address] 02-21-2024 12:10-0400 Systolic Blood Pressure Non-Invasive 110 mm[Hg] DR AIDEE SAMUEL MD [address] [place] [address] 02-21-2024 05:24-0400 Body height 177.[address] AIDEE SAMUEL MD [address] [place] [address] 02-21-2024 05:24-0400 Body temperature 97.52 [degF] DR AIDEE SAMUEL MD [address] [place] [address] 02-21-2024 05:24-0400 Diastolic Blood Pressure Non-Invasive 95 mm[Hg] DR AIDEE SAMUEL MD [address] [place] [address] 02-21-2024 05:24-0400 Systolic Blood Pressure Non-Invasive 148 mm[Hg] DR AIDEE SAMUEL MD [address] [place] [address] 01-21-2024 11:10-0400 Diastolic blood pressure 68 mm[Hg] DR AIDEE SAMUEL MD [address] [place] [address] 01-21-2024 11:10-0400 Heart rate 62 /min DR AIDEE SAMUEL MD [address] [place] [address] 01-21-2024 11:10-0400 Respiratory rate 16 /min DR AIDEE SAMUEL MD [address] [place] [address] 01-21-2024 11:10-0400 Systolic blood pressure 109 mm[Hg] DR AIDEE SAMUEL MD [address] [place] [address] 01-21-2024 10:59-0400 Diastolic Blood Pressure Non-Invasive 66 mm[Hg] DR AIDEE SAMUEL MD [address] [place] [address] 01-21-2024 10:59-0400 Heart rate 71 /min DR AIDEE SAMUEL MD [address] [place] [address] 01-21-2024 10:59-0400 Respiratory rate 16 /min DR AIDEE SAMUEL MD [address] [place] [address] 01-21-2024 10:59-0400 Systolic Blood Pressure Non-Invasive 113 mm[Hg] DR AIDEE SAMUEL MD [address] [place] [address] 01-21-2024 10:48-0400 Diastolic Blood Pressure Non-Invasive 77 mm[Hg] DR AIDEE SAMUEL MD [address] [place] [address] 01-21-2024 10:48-0400 Heart rate 69 /min DR AIDEE SAMUEL MD [address] [place] [address] 01-21-2024 10:48-0400 Respiratory rate 16 /min DR AIDEE SAMUEL MD [address] [place] [address] 01-21-2024 10:48-0400 Systolic Blood Pressure Non-Invasive 121 mm[Hg] DR AIDEE SAMUEL MD [address] [place] [address] 01-21-2024 10:42-0400 Diastolic Blood Pressure Non-Invasive 76 mm[Hg] DR AIDEE SAMUEL MD [address] [place] [address] 01-21-2024 10:42-0400 Heart rate 65 /min DR AIDEE SAMUEL MD [address] [place] [address] 01-21-2024 10:42-0400 Systolic Blood Pressure Non-Invasive 120 mm[Hg] DR AIDEE SAMUEL MD [address] [place] [address] 01-21-2024 10:38-0400 Heart rate 67 /min DR AIDEE SAMUEL MD [address] [place] [address] 01-21-2024 09:30-0400 Heart rate 75 /min DR AIDEE SAMUEL MD [address] [place] [address] 01-21-2024 09:03-0400 Blood Pressure Cuff Size DR AIDEE SAMUEL MD [address] [place] [address] 01-21-2024 09:03-[address] AIDEE SAMUEL MD [address] [place] [address] 01-21-2024 09:03-[address] AIDEE SAMUEL MD [address] [place] [address] 01-21-2024 09:03-0400 Body temperature 97.7 [degF] DR AIDEE SAMUEL MD [address] [place] [address] 01-21-2024 09:03-0400 Heart rate 74 /min DR AIDEE SAMUEL MD [address] [place] [address] 01-20-2024 13:36-0400 Body height [address] AIDEE SAMUEL MD [address] [place] [address] 01-20-2024 13:36-0400 Body weight 97.[address] AIDEE SAMUEL MD [address] [place] [address] 01-20-2024 13:36-0400 Body weight 31.54 kg/m2 DR AIDEE SAMUEL MD [facility] 08-30-2023 15:08-0500 Blood Pressure Location CATHY FROMMELT DO [facility] 08-30-2023 15:08-0500 Blood Pressure Method CATHY FROMMELT D O [facility] 08-30-2023 15:08-0500 Diastolic Blood Pressure Non-Invasive 80 1 CATHY RAYMELT DO [facility] 08-30-2023 15:08-0500 Heart rate 68 /min CATHY FROMMELT DO [facility] 08-30-2023 15:08-0500 Respiratory rate 18 /min CATHY RAYMELT DO [facility] 08-30-2023 15:08-0500 Systolic Blood Pressure Non-Invasive 122 1 CATHY RAYMELT DO [facility] 08-30-2023 12:27-0500 Blood Pressure Location CATHY FROMMELT DO [facility] 08-30-2023 12:27-0500 Blood Pressure Method CATHY LOCKETTT D O [facility] 08-30-2023 12:27-0500 Body temperature 98.6 [degF] CATHY RAYMELT DO [facility] 08-30-2023 12:27-0500 Body weight 97.1 kg CATHY FROMMELT DO [facility] 08-30-2023 12:27-0500 Diastolic Blood Pressure Non-Invasive 72 1 CATHY FROMMELT DO [facility] 08-30-2023 12:27-0500 Heart rate 64 /min CATHY COPPOLA DO [facility] 08-30-2023 12:27-0500 Respiratory rate 18 /min CATHY COPPOLA DO [facility] 08-30-2023 12:27-0500 Systolic Blood Pressure Non-Invasive 113 1 CATHY COPPOLA DO [facility] 06-08-2023 14:20-[address] WILNER NICOLE MD [facility] 06-08-2023 14:20-0400 Diastolic Blood Pressure Non-Invasive [address] WILNER NICOLE MD [facility] 06-08-2023 14:20-0400 Heart rate 107 /min DR WILNER NICOLE MD [facility] 06-08-2023 14:20-0400 Mean blood pressure 79 mm[Hg] DR WILNER NICOLE MD [facility] 06-08-2023 14:20-0400 Reason For Taking VItal Signs DR WILNER NICOLE MD [facility] 06-08-2023 14:20-0400 Respiratory rate 16 /min DR WILNER NICOLE MD [facility] 06-08-2023 14:20-0400 Systolic Blood Pressure Non-Invasive [address] WILNER NICOLE MD [facility] 06-08-2023 14:19-[address] WILNER NICOLE MD [facility] 06-08-2023 14:19-0400 Diastolic Blood Pressure Non-Invasive [address] WILNER NICOLE MD [facility] 06-08-2023 14:19-0400 Mean blood pressure 91 mm[Hg] DR WILNER NICOLE MD [facility] 06-08-2023 14:19-0400 Systolic Blood Pressure Non-Invasive [address] WILNER NICOLE MD [facility] 06-08-2023 12:27-[address] WILNER NICOLE MD [facility] 06-08-2023 12:27-0400 Body temperature 98.6 [degF] DR WILNER NICOLE MD [facility] 06-08-2023 12:27-0400 Diastolic Blood Pressure Non-Invasive [address] WILNER NICOLE MD [facility] 06-08-2023 12:27-0400 Heart rate 111 /min DR WILNER NICOLE MD [facility] 06-08-2023 12:27-0400 Respiratory rate 16 /min DR WILNER NICOLE MD [facility] 06-08-2023 12:27-0400 Systolic Blood Pressure Non-Invasive [address] WILNER NICOLE MD [facility] 05-26-2023 03:42-0400 Diastolic blood pressure 68 mm[Hg] Dr. Colby Burnett Work Phone: [facility] 05-26-2023 03:42-0400 Systolic blood pressure 115 mm[Hg] Dr. Colby Burnett Work Phone: [facility] 05-26-2023 03:00-0400 Heart rate 65 /min Dr. Colby Burnett Work Phone: [facility] 05-26-2023 03:00-0400 Respiratory rate 18 /min Dr. Colby Burnett Work Phone: [facility] 05-26-2023 03:00-0400 SaO2% (BldA) [Mass fraction] 96 % Dr. Colby Burnett Work Phone: [facility] 05-26-2023 00:31-0400 Body temperature 97.5 [degF] Dr. Colby Burnett Work Phone: [facility] 05-26-2023 00:28-0400 Body height 177.[address] Colby Burnett Work Phone: [facility] 05-26-2023 00:28-0400 Body mass index (BMI) [Ratio] 30.9 kg/m2 Dr. Colby Burnett Work Phone: [facility] 05-26-2023 00:28-0400 Body weight 97.[address] Colby Burnett Work Phone: [facility] 03-28-2023 16:53-0400 Diastolic blood pressure 86 mm[Hg] Dr. Colby Burnett Work Phone: [facility] 03-28-2023 16:53-0400 Heart rate 76 /min Dr. Colby Burnett Work Phone: [facility] 03-28-2023 16:53-0400 Respiratory rate 16 /min Dr. Colby Burnett Work Phone: [facility] 03-28-2023 16:53-0400 SaO2% (BldA) [Mass fraction] 98 % Dr. Colby Burnett Work Phone: [facility] 03-28-2023 16:53-0400 Systolic blood pressure 120 mm[Hg] Dr. Colby Burnett Work Phone: [facility] 03-28-2023 14:17-0400 Body height 177.[address] Cobly Burnett Work Phone: [facility] 03-28-2023 14:17-0400 Body mass index (BMI) [Ratio] 31.1 kg/m2 Dr. Colby Burnett Work Phone: [facility] 03-28-2023 14:17-0400 Body temperature 96.2 [degF] Dr. Colby Burnett Work Phone: [facility] 03-28-2023 14:17-0400 Body weight 98.[address] Colby Burnett Work Phone: [facility] 03-25-2023 09:57-0400 Body mass index (BMI) [Ratio] 31.3 kg/m2 Dr. Colby Burnett Work Phone: [facility] 03-25-2023 09:57-0400 Body weight 99.[address] Colby Burnett Work Phone: [facility] 03-25-2023 09:57-0400 Diastolic blood pressure 70 mm[Hg] Dr. Colby Burnett Work Phone: [facility] 03-25-2023 09:57-0400 Heart rate 85 /min Dr. Colby Burnett Work Phone: [facility] 03-25-2023 09:57-0400 Respiratory rate 17 /min Dr. Colby Burnett Work Phone: [facility] 03-25-2023 09:57-0400 SaO2% (BldA) [Mass fraction] 99 % Dr. Colby Burnett Work Phone: [facility] 03-25-2023 09:57-0400 Systolic blood pressure 132 mm[Hg] Dr. Colby Burnett Work Phone: [facility] 03-14-2023 14:05-0400 Diastolic blood pressure 73 mm[Hg] Dr. Colby Burnett Work Phone: [facility] 03-14-2023 14:05-0400 Systolic blood pressure 104 mm[Hg] Dr. Colby Burnett Work Phone: [facility] 03-14-2023 12:00-0400 Heart rate 72 /min Dr. Colby Burnett Work Phone: [facility] 03-14-2023 12:00-0400 Respiratory rate 16 /min Dr. Colby Burnett Work Phone: [facility] 03-14-2023 12:00-0400 SaO2% (BldA) [Mass fraction] 98 % Dr. Colby Burnett Work Phone: [facility] 03-14-2023 10:05-0400 Body mass index (BMI) [Ratio] 31.1 kg/m2 Dr. Colby Burnett Work Phone: [facility] 03-14-2023 10:05-0400 Body temperature 98 [degF] Dr. Colby Burnett Work Phone: [facility] 03-14-2023 10:05-0400 Body weight 98.[address] Colby Burnett Work Phone: [facility] 03-08-2023 19:00-0400 Respiratory rate 18 /min Dr. Colby Burnett Work Phone: [facility] 03-08-2023 15:45-0400 Body mass index (BMI) [Ratio] 31 kg/m2 Dr. Colby Burnett Work Phone: [facility] 03-08-2023 15:45-0400 Body temperature 98.2 [degF] Dr. Colby Burnett Work Phone: [facility] 03-08-2023 15:45-0400 Body weight 98.[address] Colby Burnett Work Phone: [facility] 03-08-2023 15:45-0400 Diastolic blood pressure 85 mm[Hg] Dr. Colby Burnett Work Phone: [facility] 03-08-2023 15:45-0400 Heart rate 100 /min Dr. Colby Burnett Work Phone: [facility] 03-08-2023 15:45-0400 SaO2% (BldA) [Mass fraction] 97 % Dr. Colby Burnett Work Phone: [facility] 03-08-2023 15:45-0400 Systolic blood pressure 130 mm[Hg] Dr. Colby Burnett Work Phone: [facility] 02-15-2023 09:19-0400 Diastolic Blood Pressure Non-Invasive [address] JUAN DAVID LY MD [facility] 02-15-2023 09:19-0400 Heart rate 72 /min DR JUAN DAVID LY MD [address] [place] [address] 02-15-2023 09:19-0400 Respiratory rate 17 /min DR JUAN DAVID LY MD [address] [place] [address] 02-15-2023 09:19-0400 Systolic Blood Pressure Non-Invasive [address] JUAN DAVID LY MD [facility] 02-15-2023 09:12-0400 Diastolic Blood Pressure Non-Invasive [address] JUAN DAVID LY MD [facility] 02-15-2023 09:12-0400 Heart rate 74 /min DR JUAN DAVID LY MD [facility] 02-15-2023 09:12-0400 Respiratory rate 16 /min DR JUAN DAVID LY MD [facility] 02-15-2023 09:12-0400 Systolic Blood Pressure Non-Invasive [address] JUAN DAVID LY MD [facility] 02-15-2023 09:04-0400 Diastolic Blood Pressure Non-Invasive [address] JUAN DAVID LY MD [facility] 02-15-2023 09:04-0400 Heart rate 72 /min DR JUAN DAVID LY MD [facility] 02-15-2023 09:04-0400 Respiratory rate 15 /min DR JUAN DAVID LY MD [facility] 02-15-2023 09:04-0400 Systolic Blood Pressure Non-Invasive [address] JUAN DAVID LY MD [facility] 02-15-2023 08:51-0400 Body temperature 97.34 [degF] DR JUAN DAVID LY MD [facility] 02-15-2023 08:45-0400 Respiratory Rate - Anes 18 br/min DR JUAN DAVID LY MD [facility] 02-15-2023 08:40-0400 Respiratory Rate - Anes 19 br/min DR JUAN DAVID LY MD [facility] 02-15-2023 08:35-0400 Respiratory Rate - Anes 15 br/min DR JUAN DAVID LY MD [facility] 02-15-2023 07:25-0400 Body height 177.[address] JUAN DAVID LY MD [facility] 02-15-2023 07:25-0400 Body temperature 97.7 [degF] DR JUAN DAVID LY MD [facility] 02-15-2023 07:25-0400 Body weight 97.[address] JUAN DAVID LY MD [facility] 02-15-2023 07:25-0400 Heart rate 80 /min DR JUAN DAVID LY MD [facility] 02-14-2023 05:35-0400 Diastolic blood pressure 84 mm[Hg] Dr. Colby Burnett Work Phone: [facility] 02-14-2023 05:35-0400 Heart rate 74 /min Dr. Colby Burnett Work Phone: [facility] 02-14-2023 05:35-0400 Respiratory rate 14 /min Dr. Colby Burnett Work Phone: [facility] 02-14-2023 05:35-0400 SaO2% (BldA) [Mass fraction] 96 % Dr. Colby Burnett Work Phone: [facility] 02-14-2023 05:35-0400 Systolic blood pressure 151 mm[Hg] Dr. Colby Burnett Work Phone: [facility] 02-14-2023 03:36-0400 Body height 177.[address] Colby Burnett Work Phone: [facility] 02-14-2023 03:36-0400 Body mass index (BMI) [Ratio] 32.5 kg/m2 Dr. Colby Burnett Work Phone: [facility] 02-14-2023 03:36-0400 Body temperature 97.9 [degF] Dr. Colby Burnett Work Phone: [facility] 02-14-2023 03:36-0400 Body weight 102.[address] Colby Burnett Work Phone: [facility] 01-29-2023 13:31-0400 Body height 177.[address] Colby Burnett Work Phone: [facility] 01-29-2023 13:31-0400 Body mass index (BMI) [Ratio] 31.8 kg/m2 Dr. Colby Burnett Work Phone: [facility] 01-29-2023 13:31-0400 Body temperature 98.2 [degF] Dr. Colby Burnett Work Phone: [facility] 01-29-2023 13:31-0400 Body weight 100.[address] Colby Burnett Work Phone: [facility] 01-29-2023 13:31-0400 Diastolic blood pressure 82 mm[Hg] Dr. Colby Burnett Work Phone: [facility] 01-29-2023 13:31-0400 Heart rate 89 /min Dr. Colby Burnett Work Phone: [facility] 01-29-2023 13:31-0400 Respiratory rate 17 /min Dr. Colby Burnett Work Phone: [facility] 01-29-2023 13:31-0400 SaO2% (BldA) [Mass fraction] 98 % Dr. Colby Burnett Work Phone: [facility] 01-29-2023 13:31-0400 Systolic blood pressure 140 mm[Hg] Dr. Colby Burnett Work Phone: [facility] 12-19-2022 08:57-0500 Body height 177.[address] Colby Burnett Work Phone: [facility] 12-19-2022 08:57-0500 Diastolic blood pressure 88 mm[Hg] Dr. Colby Burnett Work Phone: [facility] 12-19-2022 08:57-0500 Systolic blood pressure 140 mm[Hg] Dr. Colby Burnett Work Phone: [facility] 12-19-2022 08:57-0500 Body mass index (BMI) [Ratio] 31.4 kg/m2 Dr. Colby Burnett Work Phone: [facility] 12-19-2022 08:57-0500 Body weight 99.[address] Colby Burnett Work Phone: [facility] 12-19-2022 08:57-0500 Heart rate 81 /min Dr. Colby Burnett Work Phone: [facility] 12-19-2022 08:57-0500 Respiratory rate 18 /min Dr. Colby Burnett Work Phone: [facility] 12-19-2022 08:57-0500 SaO2% (BldA) [Mass fraction] 98 % Dr. Colby Burnett Work Phone: [facility] 11-06-2022 13:04-0500 Diastolic blood pressure 76 mm[Hg] Dr. Colby Burnett Work Phone: [facility] 11-06-2022 13:04-0500 Heart rate 91 /min Dr. Colby Burnett Work Phone: [facility] 11-06-2022 13:04-0500 Respiratory rate 14 /min Dr. Colby Burnett Work Phone: [facility] 11-06-2022 13:04-0500 SaO2% (BldA) [Mass fraction] 100 % Dr. Colby Burnett Work Phone: [facility] 11-06-2022 13:04-0500 Systolic blood pressure 125 mm[Hg] Dr. Colby Burnett Work Phone: [facility] 11-06-2022 11:04-0500 Body height 177.[address] Colby Burnett Work Phone: [facility] 11-06-2022 11:04-0500 Body mass index (BMI) [Ratio] 30.8 kg/m2 Dr. Colby Burnett Work Phone: [facility] 11-06-2022 11:04-0500 Body temperature 97.5 [degF] Dr. Colby Burnett Work Phone: [facility] 11-06-2022 11:04-0500 Body weight 97.[address] Colby Burnett Work Phone: [facility] 09-27-2022 12:59-0500 Diastolic blood pressure 90 mm[Hg] Dr. Colby Burnett Work Phone: [facility] 09-27-2022 12:59-0500 Heart rate 102 /min Dr. Colby Burnett Work Phone: [facility] 09-27-2022 12:59-0500 Systolic blood pressure 134 mm[Hg] Dr. Colby Burnett Work Phone: [facility] 09-27-2022 09:53-0500 Body height 177.[address] Colby Burnett Work Phone: [facility] Work Phone: 09-27-2022 09:53-0500 Body mass index (BMI) [Ratio] 31.4 kg/m2 Dr. Colby Burnett Work Phone: [facility] 09-27-2022 09:53-0500 Body temperature 98.6 [degF] Dr. Colby Burnett Work Phone: [facility] 09-27-2022 09:53-0500 Body weight 99.[address] Colby Burnett Work Phone: [facility] 09-27-2022 09:53-0500 Respiratory rate 16 /min Dr. Colby Burnett Work Phone: [facility] 09-27-2022 09:53-0500 SaO2% (BldA) [Mass fraction] 96 % Dr. Colby Burnett Work Phone: [facility] 08-26-2022 21:04-0500 Diastolic blood pressure 82 mm[Hg] [facility] 08-26-2022 21:04-0500 Heart rate 71 /min [facility] 08-26-2022 21:04-0500 Respiratory rate 17 /min [facility] 08-26-2022 21:04-0500 SaO2% (BldA) [Mass fraction] 97 % [facility] 08-26-2022 21:04-0500 Systolic blood pressure 132 mm[Hg] [facility] 08-26-2022 17:28-0500 Body height 177.8 cm [facility] Work Phone: 08-26-2022 17:28-0500 Body mass index (BMI) [Ratio] 30.8 kg/m2 [facility] 08-26-2022 17:28-0500 Body temperature 97.7 [degF] [facility] 08-26-2022 17:28-0500 Body weight 97.4 kg [facility] Encounters Encounter Date Encounter Type Care Provider Facility Start: 08-23-2025 End: 08-23-2025 ambulatory Rc Christophermurtaza Facility:[facility] Start: 08-19-2025 End: 08-19-2025 ambulatory [facility] Facility:[facility] Start: 07-19-2025 End: 07-19-2025 ambulatory WILY CARLTON DO Facility:[facility] Start: 07-19-2025 End: 07-19-2025 Patient encounter procedure WILY CARLTON DO [facility] Start: 07-15-2025 End: 07-15-[address] Rc Estes MD -[facility] Work Phone: Start: 07-15-2025 End: 07-15-[address] Mitchel Morel DO Work Phone: -[facility] Start: 07-14-2025 ambulatory Wily Carlton Facility: [facility] Start: 07-14-2025 Non-patient / Non-visit Dr. Stephenie woods MD -[facility] Start: 07-14-2025 Non-patient / Non-visit Dr. Ger gay DO -[facility] Work Phone: Start: 07-14-2025 End: 07-14-2025 ambulatory Ger Kimbrough Facility:[facility] Start: 07-14-2025 End: 07-14-2025 Evaluation and management of inpatient Dr. Ger Kimbrough DO -[facility] Work Phone: Start: 07-14-2025 End: 07-14-[address] Mitchel Morel DO Work Phone: -[facility] Start: 07-12-2025 End: 07-12-2025 ambulatory WILY CARLTON DO Facility:[facility] Start: 07-12-2025 End: 07-12-2025 Patient encounter procedure WILY CARLTON DO [facility] Start: 06-25-2025 End: 06-25-[address] Mitchel Morel DO Work Phone: -[facility] Start: 06-25-2025 End: 06-25-[address] Colby Dove MD -[facility] Work Phone: Start: 06-25-2025 End: 06-25-2025 ambulatory Wily Carlton Facility:[facility] Start: 05-24-2025 End: 05-24-[address] Rc Estes MD -[facility] Work Phone: Start: 05-24-2025 End: 05-24-[address] Mitchel Morel DO Work Phone: -[facility] Start: 03-27-2025 End: 03-28-2025 Evaluation and management of inpatient DR AMRZENA WESTBROOK MD [facility] Start: 03-26-2025 End: 03-26-2025 Emergency department patient visit Dr. Mitchel Morel DO Work Phone: -Emergency Department Work Phone: Start: 03-05-2025 End: 03-05-2025 ambulatory MANJU WINTERSETLER RECONCILER-[employer]LOOR WORKER Facility:A Start: 03-05-2025 End: 03-05-2025 Patient encounter procedure VI JENNI HARDWARE TECHNICIAN [facility] Start: 02-18-2025 End: 02-18-2025 ambulatory MANJU WINTERSETLER RECONCILER-[employer]LOOR WORKER Facility:[facility] Start: 02-18-2025 End: 02-18-2025 Patient encounter procedure COLBY BURNETT DO [facility] Start: 03-30-2024 End: 05-18-[address] RAMESH JACOBS MD Facility:[facility] Start: 03-30-2024 End: 05-18-[address] RAMESH JACOBS MD [facility] Start: 02-21-2024 End: 02-21-[address] AIDEE SAMUEL MD Facility:[facility] Start: 02-21-2024 End: 02-21-[address] AIDEE SAMUEL MD [facility] Start: 02-18-2024 End: 02-18-[address] AIDEE SAMUEL MD Facility:[facility] Start: 02-13-2024 End: 02-13-2024 ambulatory COLBY LEX DO Facility:[facility] Start: 02-13-2024 End: 02-13-2024 Patient encounter procedure COLBY LEX DO [facility] Start: 01-21-2024 End: 01-21-[address] AIDEE SAMUEL MD Facility:[facility] Start: 01-21-2024 End: 01-21-[address] AIDEE SAMUEL MD [facility] Start: 01-16-2024 End: 01-16-2024 ambulatory COLBY ZIMMERMANGail HARP Facility:[facility] Start: 01-16-2024 End: 01-16-2024 Patient encounter procedure COLBY LEX DO [facility] Start: 09-20-2023 End: 09-20-2023 ambulatory SANDY KRAFT PA-C Facility:[facility] Start: 09-20-2023 End: 09-20-2023 Patient encounter procedure SANDY KRAFT PA-C [facility] Start: 08-30-2023 End: 08-30-2023 Emergency department patient visit CATHY COPPOLA DO [facility] Start: 06-20-2023 End: 06-20-[address] AIDEE SAMUEL MD Facility:[facility] Start: 06-20-2023 End: 06-20-[address] AIDEE SAMUEL MD [facility] Start: 06-10-2023 End: 06-10-[address] AIDEE SAMUEL MD Facility:[facility] Start: 06-10-2023 End: 06-10-[address] AIDEE SAMUEL MD [facility] Start: 06-08-2023 End: 06-08-2023 Emergency department patient visit DR WILNER NICOLE MD [facility] Start: 05-29-2023 End: 05-29-[address] AIDEE SAMUEL MD Facility:[facility] Start: 05-26-2023 End: 05-26-2023 Emergency department patient visit Dr. Colby Burnett Work Phone: [facility]-Emergency Department Work Phone: Start: 04-30-2023 End: 04-30-[address] Colby Burnett Work Phone: [facility] Work Phone: Start: 04-30-2023 End: 04-30-[address] Col[facility] Burn[facility] Work Phone: Start: 03-28-2023 End: 03-28-2023 Emergency department patient visit Dr. Colby Burnett Work Phone: [facility]-Emergency Department Start: 03-27-2023 End: 03-27-[address] Colby Burnett Work Phone: [facility]-Pulmonary Services/Neurology Start: 03-25-2023 End: 03-25-[address] Colby Burnett Work Phone: [facility] Start: 03-14-2023 End: 03-14-2023 Emergency department patient visit Dr. Colby Burnett Work Phone: [facility]-Emergency Department Start: 03-08-2023 End: 03-08-2023 Emergency department patient visit Dr. Colby Burnett Work Phone: [facility]-Emergency Department Start: 02-15-2023 End: 02-15-[address] JUAN DAVID LY MD [facility] Start: 02-14-2023 End: 02-14-2023 Emergency department patient visit Dr. Colby Burnett Work Phone: [facility]-Emergency Department Start: 02-04-2023 End: 02-04-[address] Colby Burnett Work Phone: [facility] Work Phone: Start: 02-04-2023 End: 02-04-[address] Colby Burnett Work Phone: [facility]-Laboratory Start: 01-29-2023 End: 01-29-[address] Colby Burnett Work Phone: [facility] Start: 01-15-2023 End: 01-15-[address] Colby Burnett Work Phone: [facility] Work Phone: Start: 01-15-2023 End: 01-15-[address] Colby Burnett Work Phone: [facility] Start: 12-19-2022 End: 12-19-[address] Colby Burnett Work Phone: [facility] Start: 11-15-2022 Non-patient / Non-visit Dr. Precious Burnett Work Phone: [facility] Start: 11-15-2022 End: 11-15-[address] Colby Burnett Work Phone: [facility] Work Phone: Start: 11-15-2022 End: 11-15-[address] Colby Burnett Work Phone: [facility]-Cardiovascula r Services Start: 11-09-2022 Non-patient / Non-visit Dr. Precious Burnett Work Phone: [facility] Start: 11-06-2022 End: 11-06-2022 Emergency department patient visit Dr. Colby Burnett Work Phone: [facility]-Emergency Department Start: 10-18-2022 End: 10-18-2022 Patient encounter procedure COLBY BURNETT DO [facility] Start: 10-17-2022 End: 10-17-[address] Colby Burnett Work Phone: [facility] Work Phone: Start: 10-17-2022 End: 10-17-[address] Colby Burnett Work Phone: [facility] Start: 10-11-[address] Colby Burnett Work Phone: [facility] Start: 09-27-2022 End: 09-27-[address] Colby Burnett Work Phone: [facility] Work Phone: Start: 09-27-2022 End: 09-27-[address] Colby Burnett Work Phone: [facility] Start: 09-27-2022 End: 09-27-[address] Colby Burnett Work Phone: [facility] Start: 09-03-2022 End: 09-03-2022 Patient encounter procedure COLBY BURNETT DO [facility] Start: 08-30-2022 End: 08-30-2022 ambulatory [facility] Work Phone: Start: 08-30-2022 End: 08-30-2022 Patient encounter procedure [facility]-Pulmonary Services/Neurology Start: 08-28-2022 End: 08-28-2022 ambulatory [facility] Work Phone: Start: 08-28-2022 End: 08-28-2022 Patient encounter procedure [facility]-Laboratory Start: 08-26-2022 End: 08-26-2022 Emergency department patient visit [facility]-Emergency Department Start: 08-24-2022 End: 08-24-2022 ambulatory [facility] Work Phone: Start: 08-24-2022 End: 08-24-2022 Patient encounter procedure [facility]-Laboratory Start: 06-20-2022 End: 06-20-2022 ambulatory [facility] Work Phone: Start: 06-20-2022 End: 06-20-2022 Patient encounter procedure [facility]-Cat Scan, [facility] Start: 03-08-2022 End: 03-08-2022 Patient encounter procedure [facility]-MRI - [facility] Start: 11-27-2021 End: 11-27-2021 Patient encounter procedure [facility]-Cardiovascula r Services Start: 11-22-2021 End: 11-22-2021 Discharged Recurring [facility]-Physical Therapy Procedures Date Procedure Procedure Detail Performing Clinician Start: 07-14-2025 MRI of brain without contrast Dr. Mitchel Morel DO Work Phone: Start: 07-14-[address] Mitchel Morel DO Work Phone: Start: 07-14-2025 CT angiography of he ad and neck Dr. Mitchel Morel DO Work Phone: Start: 07-14-2025 Plain chest X-ray Dr. Pipe Morel DO Work Phone: Start: 07-14-2025 CT of head without contrast Dr. Mitchel Morel DO Work Phone: Start: 06-25-2025 Methadone measurement, urine Dr. Mitchel Morel DO Work Phone: Start: 03-26-2025 X-ray of chest, PA a nd lateral views Dr. Mitchel Morel DO Work Phone: Start: 03-26-[address] Mitchel Morel DO Work Phone: Start: 06-23-2023 Electrocardiographic monitor and recorder, device (physical object) CATHY COPPOLA DO Comment on above: 06/20/23 - 06/21/23 1. Predominant sinus rhythm with the average heart rate 78 bpm and the range 55 to 141 bpm. 2. Occasional ventricular ectopy averaging 3.07%. 3. Very rare supraventricular ectopy averaging 0.04%. 4. Single symptom of lightheadedness, skipping and more PVC's today correlated with increased PVC burden. Start: 06-11-2023 Echocardiography FRANSICO COPPOLA [employer] Comment on above: 1. Left ventricle: T he cavity size is normal. Wall thickness is normal. Systolic function is normal. The estimated ejection fraction is 55%. Wall motion is normal; there are no regional wall motion abnormalities. Normal diastolic function. 2. Mitral valve: There is mild regurgitation. 3. Aortic valve: There is trivial regurgitation. 4. Right ventricle: The RV systolic pressure by Doppler is 33 mm Hg. 5. Right atrium: The estimated right atrial pressure is 3 mm Hg. Start: 05-26-2023 Plain chest X-ray Dr. Sebastian Burnett Work Phone: Start: 03-28-2023 Computed tomography of abdomen and pelvis with intravenous contrast Dr. Colby Burnett Work Phone: Start: 03-28-2023 Plain chest X-ray Dr. Sebastian Burnett Work Phone: Start: 03-27-2023 Electrocardiographic monitor and recorder, device (physical object) DR WILNER NICOLE MD Comment on above: 48 HOUR Start: 03-14-2023 Plain chest X-ray Dr. Sebastian Burnett Work Phone: Start: 03-08-2023 Plain chest X-ray Dr. Sebastian Burnett Work Phone: Start: 02-14-2023 Plain chest X-ray Dr. Sebastian Burnett Work Phone: Start: 01-15-[address] Colby Burnett Work Phone: Start: 11-15-[address] ALEXUS NICOLE MD Comment on above: EF 65% Start: 10-17-2022 MRI of cervical spine Tenzin Burnett Work Phone: Start: 10-11-2022 Electrocardiographic monitor and recorder, device (physical object) DR WILNER NICOLE MD Start: 08-28-2022 Plain chest X-ray Start: 06-20-2022 CT angiography of he ad and neck Start: 03-08-2022 MRI of brain with contrast Start: 10-06-[address] WILNER NICOLE MD Comment on above: EKG portion of Lesia can stress test is negative for inducible ischemia 1. No evidence of significant ischemia or infarction. 2. Normal LEFT ventricular size, ejection fraction calculated at 52%. Start: 09-28-[address] ALEXUS NICOLE MD Comment on above: 1. Left ventricle: T he cavity size is normal. Wall thickness is normal. Systolic function is normal. The estimated ejectionfraction is 60-65%. Wall motion is normal; there are no regional wall motion abnormalities. Grade I diastolic dysfunction. 2. Mitral valve: There is trivial regurgitation. 3. Right ventricle: The RV systolic pressure by Doppler is 9 mm Hg. 4. Pulmonic valve: There is trivial regurgitation. 5. Tricuspid valve: There is trivial regurgitation. 6. Right atrium: The estimated right atrial pressure is 3 mm Hg. Start: 04-15-2019 Gallbladder structur e (body structure) COLBY BURNETT DO Start: 10-21-2017 Excision of ganglion cyst of finger COLBY BURNETT DO Start: 10-21-2014 Repair of musculoten dinous cuff of shoulder COLBY BURNETT DO Comment on above: rigth shoulder Start: 10-21-2002 Repair of musculoten dinous cuff of shoulder COLBY BURNETT DO Comment on above: left shoulder Start: 10-21-1997 Vasectomy COLBY RENO DO Aortic stent (physical object) DR RAMESH JACOBS MD Comment on above: LAD 02/21/2024 Angio-s eal right femoral artery Foot structure (body structure) DR JUAN DAVID LY MD History of placement of stent for coronary artery disease S/P coronary artery stent placement DR RAMESH JACOBS MD History of placement of stent for coronary artery disease S/P coronary artery stent placement, 02/2023 WILY CARLTON DO Tonsillectomy COLBY BURNETT DO Plan of Treatment Date Care Activity Detail Author Start: 09-08-2025 ambulatory Ambulatory Facility:[facility] Start: 09-08-2025 [facility] Start: 07-14-2025 Patient discharge [facility] Start: 07-14-2025 Following clinical p athway protocol [facility] Start: 07-14-2025 Aspiration precautions [facility] Start: 07-14-2025 Assessment of risk o f venous thromboembolism [facility] Start: 07-14-2025 Cardiac monitoring [facility] Start: 07-14-2025 Catheterization of vein [facility] Start: 07-14-2025 Consultation [facility] Start: 07-14-2025 Continuous pulse oximetry [facility] Start: 07-14-2025 Elevation of head of bed [facility] Start: 07-14-2025 Exercises [facility] Start: 07-14-2025 Insertion of cathete r into peripheral vein [facility] Start: 07-14-2025 Measuring intake and output [facility] Start: 07-14-2025 Notification of physician [facility] Start: 07-14-2025 Oxygen therapy [facility] Start: 07-14-2025 Patient referral to dietitian [facility] Start: 07-14-2025 Providing care accor ding to standard [facility] Start: 07-14-2025 Referral for physical therapy [facility] Start: 07-14-2025 Referral to occupati onal therapist [facility] Start: 07-14-2025 Referral to service [facility] Start: 07-14-2025 Speech therapy assessment [facility] Start: 07-14-2025 Telemedicine consult ation with patient [facility] Start: 07-14-2025 Tobacco use cessation education [facility] Start: 07-14-2025 End: 07-14-2025 [facility] Start: 07-14-2025 Vital signs measurements [facility] Start: 07-14-2025 Admission procedure [facility] Start: 07-14-2025 [facility] Start: 03-26-2025 [facility] Start: 03-26-2025 [facility] Start: 05-26-2023 [facility] Start: 03-28-2023 [facility] Start: 03-14-2023 [facility] Hemoglobin A1c/Hemog lobin.total in Blood [facility] Lipid 1996 panel - S ehather or Plasma [facility] MR Cervical spine [facility] Work Phone: Patient Education [facility] Work Phone: Patient referral [facility] Work Phone: Immunizations Immunization Date Immunization Notes Care Provider [facility] 08-22-2024 Pfizer Covid-19 (Comirnaty) Dr. Mitchel Morel DO Work Phone: [facility] 08-08-2024 influenza, seasonal, injectable, preservative free Dr. Mitchel Morel DO Work Phone: [facility] 08-09-2023 influenza, injectabl e, quadrivalent, preservative free Dr. Mitchel Morel DO Work Phone: [facility] 08-09-2023 tetanus toxoid, redu caryn diphtheria toxoid, and acellular pertussis vaccine, adsorbed Dr. Mitchel Morel DO Work Phone: [facility] 07-06-2022 Covid Pfizer Bivalen t Booster Dr. Mitchel Morel DO Work Phone: [facility] 08-01-2021 Covid (Pfizer) Dr. Mitchel marquez DO Work Phone: [facility] 02-02-2021 SARS-CoV-2 mRNA (tozinameran) vaccine [facility] DO [facility] Comment on above: Result Comment[facility] 01-25-2021 Covid (Pfizer) Dr. Mitchel maqruez DO Work Phone: [facility] 01-04-2021 Covid (Pfizer) Dr. Mitchel marquez DO Work Phone: [facility] 01-02-2021 SARS-CoV-2 mRNA (tozinameran) vaccine COLBY LEX DO [facility] Comment on above: Result Comment[facility] 06-21-2016 influenza, high dose seasonal, preservative-free Dr. Mitchel Morel DO Work Phone: [facility] 07-19-2015 influenza, injectabl e, quadrivalent, preservative free Dr. Mitchel Morel DO Work Phone: [facility] 06-28-2014 diphtheria, tetanus toxoids and acellular pertussis vaccine Dr. Mitchel Morel DO Work Phone: [facility] 06-28-2014 influenza, high dose seasonal, preservative-free Dr. Mitchel Morel DO Work Phone: [facility] 09-23-2013 influenza, injectabl e, quadrivalent, preservative free Dr. Mitchel Morel DO Work Phone: [facility] Payers Date Payer Category Payer Medicare [id number] 2025 Unknown [id number] 2025 Medicare [id number] 2025 Self-pay [id number] 2025 Unknown [id number] 2025 Private Health Insurance [id number] 2025 Unknown [id number] 2023 Unknown [id number] 1960 Unknown [id number] 2.16.8 40.1.049339.3.579.2. 1960 Unknown [id number] 2.16.8 40.1.113303.3.579.2. 1960 Unknown [id number] 2.16.8 40.1.240333.3.579.2.627 1960 Unknown [id number] 2.16.8 40.1.974279.3.579.2.627 1960 Unknown [id number] 2.16.8 40.1.405567.3.579.2.627 1960 Unknown [id number] 2.16.8 40.1.863858.3.579.2.627 1960 Unknown [id number] 2.16.8 40.1.337695.3.579.2. 1960 Unknown [id number] 2.16.8 40.1.795528.3.579.2. 1960 Unknown [id number] 2.16.8 40.1.661461.3.579.2. 1960 Unknown [id number] 2.16.8 40.1.183103.3.579.2. 1960 Unknown [id number] 40.1.842630.3.579.2 1960 Unknown [id number] 40.1.741611.3.579.2. 1960 Unknown [id number] 2.16. 840.1.981171.3.579.2. 1960 Unknown [id number] 2.16.8 40.1.643664.3.579.2. 1960 Unknown [id number] 2.16. 840.1.196468.3.579.2. 1960 Unknown [id number] 2.16. 840.1.590797.3.579.2. 1960 Unknown [id number] 2.16.8 40.1.629700.3.579.2. 1960 Unknown [id number] 2.16.8 40.1.271126.3.579.2.627 Unknown [id number] Unknown [id number] 2.16.8 40.1.500914.3.579.2.462 Unknown [id number] 2.16.8 [id number] Unknown [id number] 2.16.8 [id number] Unknown [id number] 2.16.8 [id number] Unknown [id number] 2.16.8 [id number] Unknown [id number] 2.16.8 [id number] Unknown [id number] 2.16.8 [id number] Unknown [id number] 2.16.8 [id number] Unknown [id number] 2.16.8 [id number] Unknown [id number] 2.16.8 [id number] Social History Date Type Detail Facility Start: 10-01-2021 End: 05-26-2023 Tobacco smoking status NHIS Unknown if ever smoked [facility] Start: 09-26-2020 None [facility] Start: 09-26-2020 Spouse/ Signif icant Other [facility] Start: 1960 Sex Assigned At Male [facility] Start: 04-21-2019 End: 07-14-2025 Tobacco smoking status Never smoked tobacco (finding) [facility] Sexual Orientation [facility] Start: 12-16-2019 Sex Male (finding) [facility] Start: 07-14-2025 Tobacco Use Tobacco Use [facility] Sex Male [facility] Medical Equipment Procedure Code Equipment Code Equipment Origin al Text Equipment Identifier Dates Bunionectomy 2.5 Headless Screw FDA Star t: 09-01-2021 Bunionectomy Forefoot Interna l Brace FDA Start: 09-01-2021 Bunionectomy Implant System C SC Mini Scorpi FDA Start: 09-01-2021 Bunionectomy 2.5 Headless Screw FDA Star t: 09-01-2021 Bunionectomy Forefoot Interna l Brace FDA Start: 09-01-2021 Bunionectomy Implant System C SC Mini Scorpi FDA Start: 09-01-2021 Bunionectomy 2.5 Headless Screw FDA Star t: 09-01-2021 Bunionectomy Forefoot Interna l Brace FDA Start: 09-01-2021 Bunionectomy Implant System C SC Mini Scorpi FDA Start: 09-01-2021 Bunionectomy 2.5 Headless Screw FDA Star t: 09-01-2021 Bunionectomy Forefoot Interna l Brace FDA Start: 09-01-2021 Bunionectomy Implant System C SC Mini Scorpi FDA Start: 09-01-2021 Bunionectomy 2.5 Headless Screw FDA Star t: 09-01-2021 Bunionectomy Forefoot Interna l Brace FDA Start: 09-01-2021 Bunionectomy Implant System C SC Mini Scorpi FDA Start: 09-01-2021 Bunionectomy 2.5 Headless Screw FDA Star t: 09-01-2021 Bunionectomy Forefoot Interna l Brace FDA Start: 09-01-2021 Bunionectomy Implant System C SC Mini Scorpi FDA Start: 09-01-2021 Bunionectomy 2.5 Headless Screw FDA Star t: 09-01-2021 Bunionectomy Forefoot Interna l Brace FDA Start: 09-01-2021 Bunionectomy Implant System C SC Mini Scorpi FDA Start: 09-01-2021 Bunionectomy 2.5 Headless Screw FDA Star t: 09-01-2021 Bunionectomy Forefoot Interna l Brace FDA Start: 09-01-2021 Bunionectomy Implant System C SC Mini Scorpi FDA Start: 09-01-2021 Bunionectomy 2.5 Headless Screw FDA Star t: 09-01-2021 Bunionectomy Forefoot Interna l Brace FDA Start: 09-01-2021 Bunionectomy Implant System C SC Mini Scorpi FDA Start: 09-01-2021 Bunionectomy 2.5 Headless Screw FDA Star t: 09-01-2021 Bunionectomy Forefoot Interna l Brace FDA Start: 09-01-2021 Bunionectomy Implant System C SC Mini Scorpi FDA Start: 09-01-2021 Bunionectomy 2.5 Headless Screw FDA Star t: 09-01-2021 Bunionectomy Forefoot Interna l Brace FDA Start: 09-01-2021 Bunionectomy Implant System C SC Mini Scorpi FDA Start: 09-01-2021 Bunionectomy 2.5 Headless Screw FDA Star t: 09-01-2021 Bunionectomy Forefoot Interna l Brace FDA Start: 09-01-2021 Bunionectomy Implant System C SC Mini Scorpi FDA Start: 09-01-2021 Bunionectomy 2.5 Headless Screw FDA Star t: 09-01-2021 Bunionectomy Forefoot Interna l Brace FDA Start: 09-01-2021 Bunionectomy Implant System C SC Mini Scorpi FDA Start: 09-01-2021 Bunionectomy 2.5 Headless Screw FDA Star t: 09-01-2021 Bunionectomy Forefoot Interna l Brace FDA Start: 09-01-2021 Bunionectomy Implant System C SC Mini Scorpi FDA Start: 09-01-2021 Bunionectomy 2.5 Headless Screw FDA Star t: 09-01-2021 Bunionectomy Forefoot Interna l Brace FDA Start: 09-01-2021 Bunionectomy Implant System C SC Mini Scorpi FDA Start: 09-01-2021 Bunionectomy 2.5 Headless Screw FDA Star t: 09-01-2021 Bunionectomy Forefoot Interna l Brace FDA Start: 09-01-2021 Bunionectomy Implant System C SC Mini Scorpi FDA Start: 09-01-2021 Bunionectomy 2.5 Headless Screw FDA Star t: 09-01-2021 Bunionectomy Forefoot Interna l Brace FDA Start: 09-01-2021 Bunionectomy Implant System C SC Mini Scorpi FDA Start: 09-01-2021 Bunionectomy 2.5 Headless Screw FDA Star t: 09-01-2021 Bunionectomy Forefoot Interna l Brace FDA Start: 09-01-2021 Bunionectomy Implant System C SC Mini Scorpi FDA Start: 09-01-2021 Bunionectomy 2.5 Headless Screw FDA Star t: 09-01-2021 Bunionectomy Forefoot Interna l Brace FDA Start: 09-01-2021 Bunionectomy Implant System C SC Mini Scorpi FDA Start: 09-01-2021 Bunionectomy 2.5 Headless Screw FDA Star t: 09-01-2021 Bunionectomy Forefoot Interna l Brace FDA Start: 09-01-2021 Bunionectomy Implant System C SC Mini Scorpi FDA Start: 09-01-2021 Bunionectomy 2.5 Headless Screw FDA Star t: 09-01-2021 Bunionectomy Forefoot Interna l Brace FDA Start: 09-01-2021 Bunionectomy Implant System C SC Mini Scorpi FDA Start: 09-01-2021 Functional Status Date Assessment Result Facility 07-14-2025 Functional status Ambulates [facility] Work Phone: 02-21-2024 Functional Status Awake [facility] 02-21-2024 Functional Status Repositions self [facility] 02-21-2024 Functional Status Maintained [facility] 01-21-2024 Functional Status Independent [facility] 01-21-2024 Functional Status ID band on, Allergy Band on, Bed in low position, Wheels locked, Upper/Half-Length side-rails up, Safety level maintained [facility] 01-20-2024 Functional Status Sensory Deficits None [facility] 08-30-2023 Functional Status Independent [facility] 08-30-2023 Functional Status ID band on, Call device within reach, Bed in low position, Wheels locked, Upper/Half-Length side-rails up, Visitor at bedside, Safety level maintained [facility] 06-08-2023 Functional Status Independent [facility] 06-08-2023 Functional Status ID band on [facility] 02-15-2023 Functional Status Ambulating in [place], Ambulating in room, Awake [facility] 02-15-2023 Functional Status Maintained [facility] Mental Status Date Assessment Result Facility 07-14-2025 Cognitive function Voice/Name [facility] Work Phone: 03-26-2025 Cognitive function Voice/Name [facility] Work Phone: 02-21-2024 Mental Status Oriented x 4 [facility] 02-21-2024 Mental Status Orientation Asse ssment Oriented x 4 [facility] 02-21-2024 Mental Status [facility] 01-21-2024 Mental Status Orientation Oriented x 4 [facility] 01-21-2024 Mental Status [facility] 08-30-2023 Mental Status Orientation Oriented x 4 [facility] 08-30-2023 Mental Status [facility] 06-08-2023 Mental Status Oriented x 4 [facility] 06-08-2023 Mental Status [facility] 05-26-2023 Cognitive function Voice/Name [facility] Work Phone: 03-28-2023 Cognitive function Awake;Alert;A ppropriate;Follow s Commands [facility] Work Phone: 03-14-2023 Cognitive function Voice/Name [facility] Work Phone: 03-08-2023 Cognitive function Voice/Name [facility] Work Phone: 02-15-2023 Mental Status Oriented x 4 [facility] 02-15-2023 Mental Status [facility] 02-14-2023 Cognitive function Level Of Cons ciousness Awake;Alert;Appropriate;Follow s Commands [facility] Work Phone: 11-06-2022 Cognitive function Level Of Cons ciousness Awake;Alert;Appropriate [facility] Work Phone: 08-26-2022 Cognitive function Level Of Cons ciousness Awake;Alert;Appropriate;Follow s Commands [facility] Work Phone: Clinical Notes 04-28-2023 to 07-15-2025 Note Date & Type Note Facility 07-15-2025 Progress note [facility] 07-15-2025 Progress note Note Date/Time July 15, 2025 4:33pm [facility] [address] [place] [address], [address] [place] [address] OFFICE VISIT Date of Service: 07/15/25 MR#: [id number] Acct: [id number] Name: COLIN PENN Rep #: [id number] : 1960 Provider: Dr. Katlin Estes MD Age/Sex: 65/M Location: [facility] Status: Signed HPI HPI Chief Complaint: Details: Interim History: Colin returns for follow-up visit. He has a history of hyperlipidemia. [id number], he had an upper respiratory tract infection that manifested with cough, fever, impaired taste and smell sensation,fatigue and left ear pressure pain. He stated that he had a COVID-19 test at that time which was negative however hesuspects this may have been a false negative. He also had tachycardia during this illness and he subsequently had episodes of tachycardia as well as bradycardia that had continued to occur and these often have occurred without clear precipitating events. A 30-day cardiac event monitor in September 2022 revealed a 5 beat run of wide-complex tachycardia (nonsustained ventricular tachycardia). 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 He saw a cardiology bankruptcy assistant and an ablation procedure was offered however the patient decided not to pursue this. The patient reported that he was found to have somecoronary artery disease and underwent a coronary artery stent placement in 2023. He takes aspirin 81 mg daily and clopidogrel. Since his upper respiratory tract infection in 2019, he has had episodic disequilibrium. Along with his disequilibrium, he has also experienced vague lightheadedness. Meclizine has been of some benefit in reducing the severity ofhis disequilibrium. Hydrochlorothiazide for treatment of possible M?ni?re's disease caused side effects of palpitations and headaches. Hydroxyzine caused anxiety. Loratadine was not of benefit for his dizziness. Scopolamine patch was not of benefit and caused dizziness. Vestibular rehabilitation was of some initial benefit and he has continued toperform vestibular exercises however subsequent vestibular rehabilitation was not of benefit. He has had nearly continuous left ear tinnitus since his upper respiratory tract infection in 2019. He underwent ENT evaluation (by Dr. Loki Jain) and was found to have mild left-sided hearing loss. This hearing loss may fluctuate to some degree. He denied having headaches, vision loss, numbness, weakness, neck pain or low back pain. Emotional stress appears to be a trigger for disequilibrium which had occurred multiple times per day in the past. Since 2022, his episodes of disequilibrium have overall decreased in frequency and have occurred several times per week. Individual episodes last about a 1 minute. Although he may experience episodes of disequilibrium when sitting, his disequilibrium is more likely to occur, or more likely to become pronounced, with movement. He had a COVID-19 infection in February 2022 that manifested with fever, fatigue, cough, and impaired taste sensation. A head MRI in 2021 was unremarkable. Buspirone caused insomnia. He has had insomnia characterized by awakening multiple times during the night. He does not feel well rested when he awakens in the morning. He has been observed to snore at night. He feels sleepy during the day. He has been diagnosed with obstructive sleep apnea and is on BiPAP. He continues to experience multiple awakenings during the night. He has fatigue. He states that he momentarily falls asleep numerous times daily. He described having a recent episode of transient weakness in the arms. He states that narcolepsy andcataplexy were suspected in a recent evaluation by a lift slab operator. A trial of modafinil was not well tolerated. Since around February 2025 he has been experiencing intermittent numbness and tingling in the hands that occurs when he is grasping a steering wheel. He was hospitalized yesterday (07/14/25) for various transient symptoms including visual scintillations, left arm heaviness and paresthesias, mild headache, and increased dysequilibrium. His evaluation with head MRI was normal. A head/neck CTA revealed calcifications in the intracranial carotid arteries bilaterally that caused some degree of stenosis. A clear cause for hissymptoms was not identified. A B12 injection for fatigue was not well tolerated. Physical Exam: Neuro: The patient is awake and alert and responds appropriately; speech is fluent; EOMI; no nystagmus; there are no deficits to soft touch in the hands; motor strength is 5/5 in the abductor pollicis brevis bilaterally and first dorsal interosseous bilaterally Neck: No bruits Heart: Regular rate and rhythm Note: During his office visit on 01/29/2023, his heart rate ranged from 42 up to the 90s while he was seated and the patient reported palpitations during these periods of transitions; the rhythm was generally regular though there were some intermittent irregular beats. Supplemental Info 48-hour Holter (start date 09/26/2020): Average heart rate was 88 bpm in normal sinus rhythm. The minimum heart rate was 63 bpm in normal sinus rhythm. The maximal heart rate was 143 bpm and normal sinus tachycardia. There were a total of 60 ventricular ectopic beats. There were a total of 22 supraventricular ectopic beats. The longest R-R interval was 1.2 seconds. There was no atrial fibrillation. There was no ventricular tachycardia. The patient kept a 48-hour Holter monitor and noted palpitations and rapid heart rate which occasionally correlated with ectopy and/or tachycardia. EKG (10/01/2021): Sinus tachycardia; low voltage QRS (limb leads); ventricular rate 119 bpm. Right lower extremity venous ultrasound (11/27/2021): Deep veins of the right lower extremity are patent and compressible segmentally.There is no evidence of right lower extremity deep vein thrombosis. Valvular competence appears intact within the proximal deep venous system on the right . The right great saphenous vein appears patent and compressible segmentally. There appears to have been resolution of the acute deep vein thrombosis in the right soleus vein noted in a prior study on 09/26/2021. Head MRI (03/08/2022): FINDINGS: CRANIAL NERVES: Unremarkable. No mass. No abnormal enhancement. COCHLEA AND SEMICIRCULAR CANALS: Unremarkable. CEREBELLOPONTINE ANGLES: Unremarkable. No mass. BRAIN AND EXTRA-AXIAL SPACES: Unremarkable as visualized. No intra- or extra-axial hemorrhage. No intracranial mass or mass effect. There is preservation of the slater/white matter interface. Posterior fossa structures are unremarkable. Ventricles are appropriate for age. No hydrocephalus. Basal cisterns are patent. BONES/JOINTS: Unremarkable. No discrete lytic or blastic abnormalities. SINUSES: Unremarkable as visualized. Clear. MASTOID AIR CELLS: Unremarkable as visualized. Clear. ORBITS: Unremarkable as visualized. Both globes, extraocular muscles, optic nerves and retrobulbar fat appear unremarkable. IMPRESSION: Unremarkable MRI of the internal auditory canal. These images were reviewed on 09/27/2022. Normal head MRI with attention to the internal auditory canals. Head and neck CTA (06/20/2022): FINDINGS: Normal bilateral petrous carotid arteries. There is calcified plaque formation of the right cavernous carotid artery, without a cross-sectional luminal stenosis. There is calcified plaque formation of the left cavernous carotid artery, without a cross-sectional luminal stenosis. Normal right A1 segments of the anterior cerebral artery. Normal left A1 segments of the anterior cerebral artery. Normal intact anterior communicating artery (ACOM). Normal bilateral A2 segments of the anterior cerebral arteries. Normal right M1 and M2 segments of the middle cerebral arteries, with a normal M1 bifurcation. Normal left M1 and M2 segments of the middle cerebral arteries, with a normal M1 bifurcation. 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 There is a persistent origin of the left posterior cerebral artery with absence of the posterior communicating artery (PCOM). Normal bilateral vertebral arteries. Normal basilar artery with a normal basilar bifurcation. The visualized bilateral superior cerebellar (SCA) arteries are normal. Normal bilateral P1, P2 and visualized P3 segments of the posterior cerebral arteries. There is no demonstrated aneurysm of the [place] of [place]. There is no demonstrated abnormality of the visualized brain. AORTIC ARCH: Normal visualized aortic arch. Normal origins of the brachiocephalic, left common carotid, and left subclavian arteries. RIGHT CAROTID ARTERIES: Normal right common carotid artery (CCA). Normal right common carotid bulb. There is mild atherosclerotic plaque formation of the origin of the right internal carotid artery with less than 50% cross sectional diameter stenosis. Normal visualized cervical portion of the right internal carotid artery. Normal origin of the right external carotid artery (ECA). LEFT CAROTID ARTERIES: Normal left common carotid artery (CCA). Normal left common carotid bulb. There is mild atherosclerotic plaque formation of the origin of the left internal carotid artery with less than 50% cross sectional diameter stenosis. Normal visualized cervical portion of the left internal carotid artery. Normal origin of the left external carotid artery (ECA). VERTEBRAL ARTERIES: Normal bilateral vertebral arteries. IMPRESSION: Minimal calcific plaque formation at the origin of the right and left internal carotid arteries. These images were reviewed on 09/27/2022. TSH, T4, BMP, magnesium (08/24/2022): BUN 19 (high), glucose 167 (high), ESR, B12, thiamine, folate (09/27/2022): Normal 30-day cardiac event monitor (10/11/2022-11/09/2022): Baseline sample showed sinus tachycardia, sinus rhythm, accelerated junctional rhythm and a heart rate of 87 bpm. There were 0 critical, 0 serious and 6 stable events that occurred. The report analysis of the critical, serious, stable and manually triggered events are listed below. Automatically detected events: 1 stable: Sinus rhythm with run of V. tach (5 beats)/couplet PACs 1 stable: Sinus tachycardia, sinus rhythm, accelerated junctional rhythm Manually detected events: 1 stable: Sinus rhythm *Flutter or skipped beats 1 stable: Sinus tachycardia, sinus rhythm with PVCs (5) *Flutter or skipped beats 1 stable: Sinus rhythm with bigeminal PVCs/PVCs (6 and 1 minute) *Flutter or skipped beats 1 stable: Junctional rhythm, sinus rhythm with lead loss *None reported Cervical spine MRI (10/17/2022): FINDINGS: There is loss of normal lordotic curvature possibly due to muscle spasm or positioning artifact. No acute fracture or subluxation. C2-3: Normal disc space height and morphology. Normal central canal and bilateral neural foramina C3-4: Normal disc space height and disc morphology. Normal central canal bilateral neural foramina C4-5: Normal disc space height with bulging of the disc and left posterolateral/foraminal disc/osteophyte protrusion. Mild narrowing of the central canal. Severe left neural foraminal stenosis C5-6: Narrowed disc space and mild endplate spurring. Bulging disc osteophyte complex and right foraminal disc/osteophyte protrusion. Mild narrowing of the central canal. Mild to moderate left neural foraminal stenosis and severe narrowing on the right secondary to disc and bony hypertrophy. C6-7: Normal disc space height and minor bulging of the disc. Normal central canal and bilateral neural foramina Cervical cord is normal size and homogeneous signal intensity IMPRESSION: No evidence for acute fracture or other significant bony pathology. Mild spondylosis and degenerative disc disease most severe at C4-5 and C5-6. Findings as above These images were reviewed on 01/29/2023. disc bulges were noted at see 4-5, C5-6 and C6-7 causing moderate left foraminal stenosis at C4-5 and moderate bilateral foraminal stenosis at C5-6 and mild to moderate central canal stenosisat C4-5 and mild central canal stenosis at C5-6. Straightening of the normal cervical lordosis was noted. EKG (11/06/2022): Unusual P axis, possible ectopic atrial rhythm. Abnormal EKG. Hemoglobin A1c (02/04/2023): Normal TSH (02/14/2023): Normal CBC, BMP, magnesium (03/14/2023): BUN 29 (high), BUN/creatinine ratio 25.9 (high), glucose 121 (high) 48-hour Holter (03/27/2023): There were a total of 2483 premature ventricular ectopic isolated beats, comprising of 12% of the total QRS complexes. 2 couplets, 1 interpolated beat, 23,761 bigeminal beats. No runs noted. There were a total of 32 premature supraventricular ectopic isolated beats. 2 atrial runs noted. The longest and fastest run consisted of 3 beats with a maximum heart rate of 169 bpm. No atrial fibrillation noted. The patient kept a diary with for symptoms of feeling PVCs which did not correlate with scan. CBC, BMP (05/26/2023): Glucose 195 (high), BUN/creatinine ratio 20.4 (high), BUN 22 (high) EKG (05/26/2023): Normal sinus rhythm. Normal EKG. Cardiac stress test (09/20/2023): Impression: 1. No evidence of Lexiscan-induced ischemia per EKG criteria. 2. Average functional capacity for age and gender. 3. Good chronotropic response, good blood pressure response and good heart raterecovery. 4. Ventricular trigeminy at baseline. PVC burden improved during exercise. Nosustained arrhythmia noted. 5. Nuclear perfusion images to be reported separately. Myocardial SPECT stress/rest (09/20/2023): 1. Technically difficult study due to subdiaphragmatic tracer activity. 2. Possible mild ischemia involving anterior wall versus artifact. Prominent apical thinning noted. 3. Normal systolic function with ejection fraction of 58%. 4. Unable to open the image of the prior study. Based on the report patient had mild defects in the apical anterior lateral wall and prior study along with diaphragmatic attenuation. The anterior defects in the current study if real are likely new compared to prior study. Carotid ultrasound (08/07/2024): Mild (<50%) stenosis right extracranial internal carotid. No significant atherosclerotic plaque or stenosis noted in the left internal carotid artery. Flow within the vertebral arteries is antegrade bilaterally. EKG (03/26/2025): Normal sinus rhythm. Normal EKG. Magnesium, iron, ferritin, folate, vitamin D, vitamin B12, TSH (07/12/25): iron 64 (slightly low), folate 25.4 (high), B12 1091 (high), vitamin D 26.3 (insufficiency range). CBC, BMP (07/14/25): glucose 188 (high) Head CT (07/14/25): FINDINGS: Brain: There is no acute large territorial infarct, intracranial hemorrhage, midline shift or mass effect. There are atherosclerotic vascular calcifications involving the bilateral carotid siphons.The sella and pineal gland regions appear unremarkable. There is no evidence of cerebellar tonsillar herniation. Ventricles: There is no acute hydrocephalus. Basilar cisterns are patent. Paranasal sinuses: Bilateral ethmoid sinus disease is noted. Mucosal thickeningis visible in the right aspect of the sphenoid sinus. Mastoid air cells: Well-aerated. Calvarium: The bony calvarium is intact. Orbits: The bilateral globes are symmetric, without retrobulbar compressive masslesion or hemorrhage. IMPRESSION: Bilateral ethmoid sinus disease is noted. Mucosal thickening is visible in the right aspect of the sphenoid sinus. No acute intracranial pathology. Head/neck CTA (07/14/25): FINDINGS: Aortic Arch: Unremarkable Brachiocephalic and Subclavians: Patent RIGHT Carotid: Right CCA: Patent Right ICA: Patent Maximum stenosis (NASCET): 0 % Right ECA: Patent LEFT Carotid: Left CCA: Patent Left ICA: Patent Maximum stenosis (NASCET): 0 % Left ECA: Patent Vertebrals: Patent RIGHT Vertebral: Patent LEFT Vertebral: Patent Anatomy: There is heavily calcified plaque is noted in the intracranial portion of the right and left ICA in the carotid siphon, which partly obscures the lumen with no evidence of occlusion Aneurysm or avm: None Anterior cerebral arteries: Patent Middle cerebral arteries: Patent Basilar artery: Patent Posterior cerebral arteries: Patent Other major branches of the posterior circulation: Patent Major venous structures: Patent Other findings: Neck: Clear lungs: Clear bones: There is no acute bony abnormality IMPRESSION: There is heavily calcified plaque is noted in the intracranial portion of the right and left ICA in the carotid siphon, which partly obscures the lumen with no evidence of occlusion. Select images were reviewed on 07/15/25. Cardiac echo (07/14/25): The left ventricular ejection fraction is 65 %. No evidence for diastolic dysfunction. Bubble contrast study is negative for PFO/ASD. Mild focal calcification of the aortic valve leaflets. Aortic valve sclerosis without stenosis. Trivial aortic valve regurgitation. Head MRI (07/14/25): FINDINGS: Diffusion-weighted images:Negative. ADC map: Negative. Gradient images: Negative. Cerebrum: Mild loss of cerebral volume. Negative for mass the frontal, parietal, temporal and occipital lobes negative. White matter: Negative for periventricular white matter changes. Negative for T2 lesions in the centrum semiovale. Cerebellum: Negative cerebellum. CSF pathways and ventricles: Negative. Negative for ventricular dilatation or obstruction. Basal ganglia and thalami: Negative. No acute infarctions. Brainstem: Midbrain, itz and medulla negative. Midline structures: The corpus callosum, pituitary fossa and cerebellar tonsils are negative. Limbic system: Medial temporal lobes and limbic system negative. Extra-axial spaces: Negative. Negative for subarachnoid, subdural or epidural hemorrhage. Orbital structures: Globes negative. Extraocular muscles negative. Paranasal sinuses: Mucosal disease in the ethmoid sinuses. Lesser mucosal disease in the maxillary and frontal sinuses. Remainder of the sinuses negative. Vascular structures: Normal intracranial flow voids including the superior sagittal sinus. Other: No abnormal enhancement. Remainder of exam negative. IMPRESSION: Negative MR of the brain. Negative for acute intracranial pathology. Diffuse paranasal sinus disease These images were reviewed on 07/15/25. Assessment and Plan Assessment and Plan (1) Peripheral vestibulopathy: Status: Chronic Qualifiers: Laterality: unspecified laterality Qualified Code(s): H81.90 - Unspecified disorder of vestibular function, unspecified ear (2) Fatigue: Status: Chronic Orders: Orders Lipid Profile Today E78.5 - Hyperlipidemia, unspecified Hemoglobin A1c Today R73.9 - Hyperglycemia, unspecified NCS and/or EMG - Bilateral Upper Today M54.2 - Cervicalgia, R20.2 - Paresthesiaof skin Medications: New cholecalciferol (vitamin D3) 1,250 mcg PO QWEEK 4 caps 4RF Plan Details Additional Comments: The patient had an upper respiratory tract infection with prominent left ear pain in 2019. Since that time, he has been experiencing disequilibrium, which has a positional component. He also has mild left-sided hearing loss and nearlycontinuous left-sided tinnitus. Meclizine is of some benefit. Vestibular rehabilitation in the past was of some benefit however subsequent vestibular rehabilitation was not of benefit. His disequilibrium is nearly continuous though it fluctuates in severity. He has experienced some lightheadedness. Hishead MRI does not reveal structural pathology to account for his symptoms. He has had some vague subjective gait imbalance (he remains able to ambulate independently) which, at times, is not directly associated with his dysequilibrium/lightheadedness. On prior examination, no motor or sensory deficits were noted. I suspect that he has a chronic peripheral vestibulopathy as a result of disruption of his left vestibular apparatus (not visualized on imaging study) due to his prior left ear infection (upper respiratory tract infection in 2019 or postviral syndrome). The possibility of M?ni?re's disease remains a consideration. He has also had fluctuations in his cardiac rhythm since his upper respiratory tract infection in 2019. He underwent a cardiac evaluation in 2020 and no pathology to account for his symptoms was identified. He saw a pipe manufacture supervisor, Dr. Samuel; he was prescribed metoprolol and this initially was of some benefit however metoprolol was subsequently discontinued. On exam at this office in January 2023, his heart rate fluctuated from a rate of 42 to a rate in the 90s and he reported having palpitations. A 30-day cardiac event monitor revealed sinus rhythm, sinus tachycardia, accelerated junctional rhythm and alsoa 5 beat run of ventricular tachycardia. I suspect that a cardiac dysautonomia may be accounting for his episodes of lightheadedness and may be contributing tohis disequilibrium. Scopolamine patch was not of benefit and caused dizziness. Anxiety may be amplifying some of his symptoms. Hydroxyzine caused increasedanxiety. Buspirone caused insomnia. He had a coronary artery stent placed in 2023. He takes aspirin and clopidogrel. - Continuation of vestibular rehabilitation exercises, as he has done on his own, has been recommended. - A cardiac ablation procedure was offered by a pipe manufacture supervisor however the patient decided not to pursue this. - Meclizine 25 mg 1/2 tablet twice daily as needed (the current reduced dosesper the patient's choice; a scheduled twice daily dose was not of benefit). - His left tympanic membrane and appeared sclerosed. He was to have an ENT specialist evaluation. His serum glucose has been noted to be mildly elevated. His prior [id number] was normal. - A repeat hemoglobin A1c will be checked. He has obstructive sleep apnea. He is on BiPAP. He has awakened in the morning feeling tired and he awakens multiple times during the night. He reports having sleep paralysis. He states that his lift slab operator suspects that he may have narcolepsy and cataplexy. He has fatigue. A B12 injection was not well tolerated. - Continuation of BiPAP is recommended. - Results of his sleep study and multiple sleep latency test will be obtainedfor review. - He may address initiating a trial of armodafinil with his lift slab operator. He has numbness and tingling in the hands. Tinel's sign was positive at the elbows and negative at the wrists on prior exam; no motor strength deficits are noted in the hands. There are no deficits to soft touch is noted in the left index finger and right fifth finger. The possibility of entrapment neuropathiesis raised. - EMG/nerve conduction studies of the upper extremities will be ordered. He was hospitalized yesterday (07/14/25) for various transient symptoms including visual scintillations, left arm heaviness and paresthesias, mild headache, and increased dysequilibrium. His evaluation with head MRI was normal. A head/neck CTA revealed calcifications in the intracranial carotid arteries bilaterally that caused some degree of stenosis. A clear cause for hissymptoms was not identified. - A lipid profile will be checked. - He is to see an eye doctor. He has vitamin D insufficiency. - Vitamin D 1.25mg weekly will be initiated. His serum iron is slightly low. - He is to begin an iron supplement. I will have him return for reassessment in 2 months. Intake Vital Signs 07/14/25 15:15 07/15/25 14:52 07/15/25 16:35 Height 5 ft 10 in 5 ft 10 in Weight: 219 lb 5.759 oz 219 lb BMI 31.4 BP 145/81 H 124/78 H Blood Pressure Location Rt brachial Lt brachial Position Sitting Standing Respiration 16 Pulse 105 H 102 H Pulse Source Monitor Temp 98.6 F Temp Source Temporal Pulse Oximetry (%) 98 Oxygen Delivery Method room air Intake Visit Reasons: ACUTE VISIT Chief Complaint: Classification Analyst Required: No Accompanied by: Self Allergies Milk Containing Products (Dairy) Allergy (Verified 07/15/25 14:55) throat tightens escitalopram (From Lexapro) Adverse Reaction (Verified 07/15/25 14:55) suicidal ideation Have you fallen in the past year?: No PFSH Medical History Hiatal hernia Osteoporosis DVT (deep venous thrombosis) Migraines Osteoarthritis High triglycerides History of blood clots Seasonal allergies History of DVT (deep vein thrombosis) Wears glasses High cholesterol Gastric reflux Non-smoker Cardiology follow-up encounter History of Holter monitoring History of echocardiogram History of stress test Asthma Hyperlipidemia GERD (gastroesophageal reflux disease) Insomnia Obesity Surgical History H/O heart artery stent History of foot surgery Hx of arthroscopy of shoulder History of cholecystectomy right finger cyst excision H/O arthroscopy of shoulder Family History (Updated 07/14/25 @ 11:[address] Ger Kimbrough DO) Sister Diabetes Cancer Mother Diabetes Arthritis Heart disease Father Hypertension Arthritis Colon cancer High cholesterol CVA (cerebral vascular accident) Brother Kidney disease Social History household members: spouse Smoking Status: Never smoker second hand exposure: No alcohol intake: current substance use type: does not use what type of physical activity do you participate in: walking and other frequency: 3-4 times per week ne/restoration: Pentecost[employer]ism seatbelt use: always Clinical Quality Measures Falls Risk Screening/Assistive Devices Have you fallen in the past year?: No Coding Level of Care Code Off vis,est,level 4 Diagnoses Peripheral vestibulopathy, unspecified laterality H81.90 Laterality: unspecified laterality Fatigue R53.83 07/16/25 1030 <Electronically signed by Rc hauser MD> Date _ Rc Simon Signature: Date (if applicable) CC: ~ [facility] Work Phone: [phone] 399-130509-24-[address] Consult [address] [facility] Medical Records Department [address] [place] [address] Counseling Note - Pharmacy 07/14/25 1626 MR#: [id number] Acct: [id number] Name: COLIN PENN Rep #:[id number] : 1960 65 From: Janusz nuno PCP: Dr. Wily Carlton, DO Status:ADM DANIE Y Location: [place] [address] Pharmacy MD Med Reconciliation Pharmacy Service has performed discharge medication reconciliation for this patient. The patient's discharge medication list was reviewed for discrepancies and discrepancies were resolved. Medications at Discharge Home Medications montelukast 10 mg tablet (Singulair) 10 mg PO DAILY PRN allergies 09/27/22 azelastine 205.5 mcg (0.15 %) nasal spray 1 spray intranasal BID PRN allergies 12/19/22 loratadine 10 mg tablet 10 mg PO DAILY PRN allergies 02/14/23 multivitamin with minerals-folic acid 12 mcg chewable tablet (Centrum Adults) 1 tab PO MOWEFR supplement 02/14/23 famotidine 20 mg tablet 20 mg PO DAILY PRN gerd 03/14/23 aspirin 81 mg tablet 81 mg PO QDAY 05/24/25 clopidogrel 75 mg tablet 75 mg PO QDAY 05/24/25 ezetimibe 10 mg tablet 10 mg PO QHS 05/24/25 meclizine 25 mg tablet 12.5 mg (1/2 x 25 mg) PO BID PRN dizziness #30 tabs 05/24/25 rosuvastatin 20 mg tablet 20 mg PO QDAY 05/24/25 07/14/25 1624 ebly> Date _ Janusz Simon Signature (if applicable): Date CC: ~ Signed [facility]09-24-2025 Discharge summary [facility] Medical Records Department [address] [place] [address] Emergency Department Summary 07/14/25 MR#: [id number] Acct: [id number] Name: COLIN PENN Rep #:[id number] : 1960 65 From: Ger Zhu PCP: Dr. Wily Carlton DO Status:DIS DANIE Location: [address] History of Present Illness Chief Complaint: Neuro S/Sx Informant: patient Onset/Context/Timing Onset: Today Context: Sudden Onset Timing: Continuous Quality and Location: Positive for Left Arm Parasthesia and - (Visual disturbance) Onset: 0650 today (approximately 45 minutes prior to arrival) Worsened by: Nothing Relieved by: Nothing Associated Symptoms Associated Symptoms: Positive for Headache; Negative for Nausea, Vomiting or Chest Pain Narrative Narrative: Patient presents with visual disturbance that began approximately 45 minutes prior to arrival. Patient states he saw flashes of colors in the peripheral vision. Patient states that later he started feeling some heaviness in his leftarm. Patient admits to some paresthesias in his left arm. Patient denies any weakness. Patient denies any slurred speech. Patient admits to a mild headache. Patient denies any chest pain. Patient denies any nausea or vomitingat this time. Patient states he gets intermittent nausea from his M?ni?re's disease. [facility] Medical History Hiatal hernia Osteoporosis DVT (deep venous thrombosis) Migraines Osteoarthritis High triglycerides History of blood clots Seasonal allergies History of DVT (deep vein thrombosis) Wears glasses High cholesterol Gastric reflux Non-smoker Cardiology follow-up encounter History of Holter monitoring History of echocardiogram History of stress test Asthma Hyperlipidemia GERD (gastroesophageal reflux disease) Insomnia Obesity Home Medications ?Medication ?Instructions ?Recorded ?Last Taken ?Type montelukast 10 mg tablet 10 mg PO DAILY PRN allergies 09/27/22 Unknown History (Singulair) azelastine 205.5 mcg (0.15 %) 1 spray intranasal BID P RN 12/19/22 Unknown History nasal spray allergies loratadine 10 mg tablet 10 mg PO DAILY PRN allergies 02/14/23 Unknown History multivitamin with minerals-folic 1 tab PO MOWEFR suppl ement 02/14/23 07/12/25 History acid 12 mcg chewable tablet (Centrum Adults) famotidine 20 mg tablet 20 mg PO DAILY PRN gerd 02/1907/11/25 History aspirin 81 mg tablet 81 mg PO QDAY 05/24/2507/13 History clopidogrel 75 mg tablet 75 mg PO QDAY 05/24/2507/13 History ezetimibe 10 mg tablet 10 mg PO QHS 05/24/25 History meclizine 25 mg tablet 12.5 mg (1/2 x 25 mg) PO BID PRN 05/24/25 Unknown Rx dizziness #30 tabs rosuvastatin 20 mg tablet 20 mg PO QDAY 05/24/2507/13 History Allergy/AdvReac Type Severity Reaction Status Date / Time Milk Containing Products Allergy throat Verified 07/14/25 07:47 (Dairy) tightens escitalopram (From Lexapro) AdvReac suicidal Verified 07/14/25 07:47 ideation Family History (Updated 07/14/25 @ 11:[address] Ger Kimbrough DO) Sister Diabetes Cancer Mother Diabetes Arthritis Heart disease Father Hypertension Arthritis Colon cancer High cholesterol CVA (cerebral vascular accident) Brother Kidney disease Surgical History H/O heart artery stent History of foot surgery Hx of arthroscopy of shoulder History of cholecystectomy right finger cyst excision H/O arthroscopy of shoulder Social History household members: spouse Smoking Status: Never smoker second hand exposure: No alcohol intake: current substance use type: does not use what type of physical activity do you participate in: walking and other frequency: 3-4 times per week ne/restoration: Pentecostalism seatbelt use: always ROS ROS ED Constitutional Constitutional ED: Denies chills or fever(s) Eyes Eyes: Reports change in vision; Denies blurry vision ENT ENT ED: Denies rhinorrhea or sore throat Cardiovascular Cardiovascular: Denies chest pain or palpitations Respiratory/Chest Respiratory/Chest: Denies cough or dyspnea Gastrointestinal Gastrointestinal: Denies nausea or vomiting Genitourinary Genitourinary ED: Denies dysuria or hematuria Musculoskeletal Musculoskeletal: Denies back pain or neck pain Integumentary Denies abscess or rash Neurologic Neurologic: Reports headache(s) and paresthesias LUE; Denies weakness Allergic/Immunologic Allergic/Immunologic ED: Denies mouth swelling or urticaria EXAM Physical Exam Const Vital Signs: 07/14/25 07:42 07/14/25 07:46 07/14/25 07:54 Temperature 98.2 F 98.2 F Temperature Source Oral Oral Pulse Rate 99 78 Respiratory Rate 18 18 Blood Pressure 155/78 H 155/78 H Blood Pressure Mean 103 103 Pulse Ox 100 100 Oxygen Delivery Method Room Air Room Air Room Air 07/14/25 07:54 07/14/25 08:24 07/14/25 08:30 Temperature 98.2 F Temperature Source Oral Pulse Rate 78 99 94 Respiratory Rate 18 14 13 Blood Pressure 155/78 H 152/92 H 142/84 H Blood Pressure Mean 103 112 103 Pulse Ox 100 98 97 Oxygen Delivery Method Room Air Room Air Room Air 07/14/25 09:00 07/14/25 09:30 07/14/25 10:00 Temperature Temperature Source Pulse Rate 86 80 88 Respiratory Rate 16 12 Blood Pressure 136/81 H 125/81 H 125/81 H Blood Pressure Mean 99 95 95 Pulse Ox 97 Oxygen Delivery Method Positive well nourished and well developed Constitutional Narrative: BMI is 31.5. General Appearance ED: well developed and NAD HEENT Reports moist mucous membranes Eyes PERRL and EOMs intact bilaterally Eyes Narrative: Funduscopic examination was benign bilaterally. Neck supple and no JVD Resp normal respiratory effort and clear to auscultation bilaterally Cardio Rate: regular rate Rhythm: regular rhythm GI soft to palpation, non-tender and non-distended Extremity normal to inspection General Extremety ED: Negative for edema or tenderness General Extremity: Negative for edema Neuro oriented x3 and CN's II-XII intact bilaterally Neuro Narrative: There is decreased sensation to light touch in the left forearm. Sensation was intact to light touch in the upper arms and lower extremities bilaterally. Shanita Coma Scale: document GCS findings Spontaneous Obeys Commands Oriented 15 Sensorium / Orientation: alert Motor Exam: strength 5/5 throughout Psych mental status grossly normal MDM MDM MDM Narrative Medical decision making narrative: Stroke team was activated in triage. Patient was evaluated there. Stroke orderset was used. CT scanof the brain will be obtained to assess for intracranial bleeding and stroke. CTA of the head and neck will be obtained to assess for large vessel occlusion and carotid and vertebral stenosis. Chest x- ray will be obtained to assess for pneumonia or bronchitis. EKG will be obtained to assess for cardiac dysrhythmia and cardiac ischemia. CBC will be obtained to assess for leukocytosis and anemia. Basic metabolic profile will be obtained to assessfor electrolyte abnormality and renal function. PT with INR and PTT will be obtained to assess for coagulopathy. High-sensitivity troponin will be obtai nedto assess for cardiac ischemia. 2-hour repeat high-sensitivity troponin will beobtained to assess for ongoing cardiac ischemia. Lab Data Attestation: I reviewed the patient's lab results. Lab results narrative: CBC was reviewed and was within normal limits. PTT was reviewed and was slightly elevated at 172. Basic metabolic profile was reviewed. Glucose was elevated at 188. The remainder is within normal limits. Initial high-sensitivity troponin was reviewed and was less than 6. PT with INR and PTT werereviewed and were within normal limits. 2-hour repeat high-sensitivity troponinwas reviewed and was 6. Labs: Laboratory Results - last 24 hr 07/14/25 07/14/25 07/14/25 07:50 08:00 10:05 WBC 4.8 RBC 4.75 Hgb 13.8 Hct 41.8 MCV 88.0 MCH 29.1 MCHC 33.0 RDW Std Deviation 44.5 H RDW Coeff of Rei 13.9 Plt Count 187 MPV 9.2 Immature Gran % (Auto) 0.600 Neut % (Auto) 43.1 L Lymph % (Auto) 44.4 H Navarro % (Auto) 7.2 Eos % (Auto) 3.6 Baso % (Auto) 1.1 H Absolute Neuts (auto) 2.1 Absolute Lymphs (auto) 2.11 Nucleated RBC % 0 PT 12.9 INR 1.0 APTT 23.7 L Sodium 139 Potassium 3.8 Chloride 104 Carbon Dioxide 23.5 Anion Gap 12 BUN 16 Creatinine 0.93 Estim Creat Clear Calc 147.36 Est GFR (MDRD) Non-Af 92 BUN/Creatinine Ratio 17.4 Glucose 188 H Calcium 8.6 Troponin T High Sens < 6 Troponin T Hi Sens 2 Hr 6 POC Glucose 172 H Radiography Chest X-Ray - ED: 1 View, Read by ED Physician, Read by Radiologist and No AcuteDisease Diagnostic Testing: Clinical Impression(s) from Imaging Studies Brain CT 07/14/25 07:54 IMPRESSION: Bilateral ethmoid sinus disease is noted. Mucosal thickening is visible in the right aspect of the sphenoid sinus. No acute intracranial pathology. Reading Location: [facility] Chest X-Ray 07/14/25 07:55 IMPRESSION: No acute process is identified in the chest. Reading Location: [facility] Head/Neck CTA 07/14/25 07:55 IMPRESSION: There is heavily calcified plaque is noted in the intracranial portion of the right and left ICA inthe carotid siphon, which partly obscures the lumen with no evidence of occlusion. Reading Location: [facility] CT scan of the brain was obtained. There is no acute intracranial abnormality. There is bilateral ethmoid sinus disease noted. There is mucosal thickening in the right aspect of the sphenoid sinus. This was interpreted by the radiologistand was also independently reviewed by myself. CTA of the head and neck was obtained. There are calcified plaques in the intracranial portion of the right and left internal carotid arteries but there is no evidence of occlusion. This was interpreted by the radiologist and was also independently reviewed by myself. Portable 1 view chest x-ray was obtained. On my independent interpretation, lung jack are clear. There is normal cardiac silhouette. Bony thorax is normal. There is no acute process noted. Radiologist also interpreted the x-ray and agrees. EKG Initial EKG: Attestation: I personally reviewed and interpreted this EKG as follows: Interpretation: Sinus Rhythm (88) and No Acute Injury Pattern Comments: EKG was obtained. On my independent interpretation, it showed anormal sinus rhythm with arate of 88. SC interval, QRS interval, and QTc intervals were all normal. Chancellor was normal. There are no acute ST or T wave changes. Prior EKG tracings: available for review Prior: Unchanged (03/26/2025) Management Discussion w/another healthcare provider: Hospitalist and Tinner Helper (Dr. De Luna, stroke neurologist [facility]) Treatment and Re-Evaluation Narrative: Patient was evaluated by stroke neurology [facility]. Patient is not a candidate for tenecteplase due to the low NIH stroke scale score. Stroke neurologist recommended further evaluation with MRI. Case was discussed with the hospitalist. Discharge Plan Dx/Rx/DC Orders Clinical Impression: Arm paresthesia, left, Visual disturbance, Hyperglycemia Disposition Disposition: Acute Care Hospital [facility] Discharge Date/Time: 07/14/25 11:40 NIHSS NIHSS 1a. Level of Consciousness: 0 - Alert; keenly responsive 1b. LOC Questions: 0 - Answers BOTH questions correctly 1c. LOC Commands: 0 - Performs BOTH tasks correctly 2. Best Gaze: 0 - Normal 4. Facial Palsy: 0 - Normal symmetrical movements 5a. Left Arm: 0 - No drift; arm holds 90 (or 45) degrees for full 10 seconds 5b. Right Arm: 0 - No drift; arm holds 90 (or 45) degrees for full 10 seconds 6a. Left Le - No drift; leg holds 30-degree position for full 5 seconds 6b. Right Le - No drift; leg holds 30-degree position for full 5 seconds 8. Sensory: 1 - Tkqj-wq-fatxglus sensory loss; 9. Best Language: 0 - No aphasia; normal 10. Dysarthria: 0 - Normal 11. Extinction and Inattention: 0 - No abnormality Total: 1 Stroke Questions Stroke Team Activated: Yes Reviewed Inclusion/Exclusion criteria: Yes IV Thrombolytic Administered: No No contraindications from thrombolytic administration: No What to do if you have Problems For any increased pain, shortness of breath, bleeding, nausea or vomiting, chestpain, or any unexpected problems, contact your Primary Care Provider. Call [facility] ([phone]) or report tothe closest Emergency Room. Call 911 if necessary. 07/14/25 7986 Cosigner Signature (if applicable): CC: Dr. Wily Carlton, ~ Signed [facility]09-24-2025 Discharge summary [facility] Medical Records Department [address] [place] [address] Discharge Summary 07/14/25 1611 MR#: [id number] Acct: [id number] Name: COLIN PENN Rep #:[id number] : 1960 65 From: Ger Kimbrough DO PCP: Dr. Wily Carlton DO Status:ADM DANIE Location: [place] [address] Providers Date of Admission: 07/14/25 Primary Care Physician: Dr. Wily Carlton DO Consultations 07/14/25 11:56 Consult: Tele-Neurology Routine Consulting Provider: [facility] Reason for Consult: Acute Ischemic Stroke/TIA EMERGENT Consult: No MD Notified: Yes Date Notified: 07/14/25 Time Notified: 11:08 Method of Notification: ED Physician Initiated Nursing Unit Staff Notify [facility] Consult: Yes Reason For Visit: LEFT SIDED PARATHESIAS Diagnosis Discharge Diagnosis (1) Paresthesias: Status: Acute Code(s): R20.2 - Paresthesia of skin Plan: Resolvied. Began the lout but now bilateral about sensation is grossly intact. Concern is for stroke or atypical migraine though the patient is not having any headache. MRI of the brain was negative. Patient had some visual disturbances that would sound like scotoma of a migraine but patient did not have a headache. Though hedoes have a history of migraines. 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 (2) Visual disturbance: Status: Acute Code(s): H53.9 - Unspecified visual disturbance Plan: Unclear etiology. Sounded like he was having scotoma for migraine but he did not have any headache.So that does not rule out migraine. Patient does have ahistory of migraines that actually went awaywhen he had COVID. (3) Dysconjugate gaze: Status: Acute Code(s): H51.8 - Other specified disorders of binocular movement Plan: Patient has been complaining of symptoms that has been diagnosed with M?ni?re's disease but he doeshave disconjugate gaze with lateral eye tracking. Is unclear if this is what is causing his symptoms but I told the patient that may be something to consider patching one of his eyes to see if that helps when he is getting up about. Will stay with the MRI shows to be a shows any evidence of any stroke but if he is continuing to have the symptoms it may be advisable for him to follow-up withophthalmology. From a sounds like and his eye exams he has done well but with this, disconjugate gaze trigger if it is more of a chronic and causing him symptoms it is unclear if he would benefit from going to a tertiary facility formyotomy procedures. Recommended patient patch 1 eye when he is at home to see if that would help some of his symptoms he just feeling unbalanced. Plan M?ni?re's disease: Follow-up with neurology. VTE prophylaxis: Low risk observation status. Not indicated. CODE STATUS: Addressed with the patient. Patient wishes to be full code. Medications at Discharge Home Medications montelukast 10 mg tablet (Singulair) 10 mg PO DAILY PRN allergies 09/27/22 azelastine 205.5 mcg (0.15 %) nasal spray 1 spray intranasal BID PRN allergies 12/19/22 loratadine 10 mg tablet 10 mg PO DAILY PRN allergies 02/14/23 multivitamin with minerals-folic acid 12 mcg chewable tablet (Centrum Adults) 1 tab PO MOWEFR supplement 02/14/23 famotidine 20 mg tablet 20 mg PO DAILY PRN gerd 03/14/23 aspirin 81 mg tablet 81 mg PO QDAY 05/24/25 clopidogrel 75 mg tablet 75 mg PO QDAY 05/24/25 ezetimibe 10 mg tablet 10 mg PO QHS 05/24/25 meclizine 25 mg tablet 12.5 mg (1/2 x 25 mg) PO BID PRN dizziness #30 tabs 05/24/25 rosuvastatin 20 mg tablet 20 mg PO QDAY 05/24/25 Hospital Course Operations None Procedures 2-D Echocardiogram Summary of Care Provided Minutes Spent on Discharge: 60 Hospital Course: This is a 65-year-old male who presents with paresthesias initially in his left upper extremity andthen both upper extremities. Had no weakness. He underwenta stroke workup with a head CT CTA of thehead neck and MRI of the brain that were negative. On exam, was noted that he had a disconjugate gaze with tracking. He was able to move his eyes up bilaterally but when tracking, his eyes were discon jugate. Unclear if this is an acute issue or chronic. Patient has noted feeling off for about a year which he is seeing neurology and has beendiagnosed with M?ni?re's disease. Is unclear if this is chronic and that he hasadapted to it because he does not have diplopia. I recommend that he follow-upwith his childhood development teacher here and to see if he would need referral to tertiary facility to see if this is a ocular muscle issue or even a cranial nerve issue. Additionally with that, recommend he follow-up with his neurologist see if he would need referral to a more specialized neurologist for evaluation if he has some cranial nerve issues. Weight / BMI Weight Weight: 99.5 kg Body Mass Index (BMI) 31.4 ABG / Lab / Microbiology Data 07/14/25 08:00 07/14/25 08:00 Laboratory: Laboratory Results - last 24 hr 07/14/25 07:50: POC Glucose 172 H 07/14/25 08:00: WBC 4.8, RBC 4.75, Hgb 13.8, Hct 41.8, MCV 88.0, MCH 29.1, MCHC 33.0, RDW Std Deviation 44.5 H, RDW Coeff of Rei 13.9, Plt Count 187, MPV 9.2, Immature Gran % (Auto) 0.600, Neut % (Auto) 43.1 L, Lymph % (Auto) 44.4 H, Navarro % (Auto) 7.2, Eos % (Auto) 3.6, Baso % (Auto) 1.1 H, Absolute Neuts (auto) 2.1, Absolute Lymphs (auto) 2.11, Nucleated RBC % 0, PT 12.9, INR 1.0, APTT 23.7 L, Sodium 139, Potassium 3.8, Chloride 104, Carbon Dioxide 23.5, Anion Gap 12, BUN 16, Creatinine 0.93, Estim Creat Clear Calc 147.36, Est GFR (MDRD) Non-Af 92, BUN/Creatinine Ratio 17.4, Glucose 188 H, Calcium 8.6, Troponin T High Sens < 6 07/14/25 10:05: Troponin T Hi Sens 2 Hr 6 07/14/25 12:48: Troponin T Hi Sens 4Hr < 6 Radiography Diagnostic Testing: Radiology Impression Brain CT 07/14/25 07:54 IMPRESSION: Bilateral ethmoid sinus disease is noted. Mucosal thickening is visible in the right aspect of the sphenoid sinus. No acute intracranial pathology. Reading Location: [facility] Chest X-Ray 07/14/25 07:55 IMPRESSION: No acute process is identified in the chest. Reading Location: [facility] Head/Neck CTA 07/14/25 07:55 IMPRESSION: There is heavily calcified plaque is noted in the intracranial portion of the right and left ICA inthe carotid siphon, which partly obscures the lumen with no evidence of occlusion. Reading Location: [facility] Brain MRI 07/14/25 11:10 IMPRESSION: Negative MR of the brain. Negative for acute intracranial pathology. Diffuse paranasal sinus disease Reading Location: [place] [address] Echocardiogram 07/14/25 11:56 Interpretation Summary The left ventricular ejection fraction is 65 %. No evidence for diastolic dysfunction. Bubble contrast study is negative for PFO/ASD. Mild focal calcification of the aortic valve leaflets. Aortic valve sclerosis without stenosis. Trivial aortic valve regurgitation. Ordering Physician: Ger Kimbrough Referring Physician: Wily Carlton Performed By: Raegan Santos, MAYNOR, RVT D/C Instructions DC O2, CPAP, BIPAP Needs Home O2 Discharge instructions: No Meaningful Use Info Meaningful Use Meaningful Use Diagnoses (Choose all that apply): None applicable Discharge Plan Admission Admit Date/Time: 07/14/25 11:05 Primary Reason for Your Visit: Paresthesias Attending Provider: Ger Kimbrough Primary Care Provider: Wily Carlton Consulting Providers: Angelito Trinidad; Valeriy Kirk; Susana Mireles; Betzaida Lee; Jemma Wilson; Miles De Luna; Hanna Taylor; Ramesh Chacon; Luis Manuel Amezquita; Alex Olmedo; Ramonita Arguello; Khushboo Etienne; Clifton London; Zelda Carranza; Chele Montalvo; Abad Hackett; Christian Boateng; Dorinda Stockton; Rodolfo Urrutia; Emma Ramos; Babatunde Caceres Instructions Additional Instructions / Restrictions: As we discussed, you had these visual changes and then this numbness in your armwhich your workup here was negative for any stroke. Suspect it may be a an atypical migraine though he did not have a headache. If this happens again, notify your physician or return to the emergency room. As we discussed also, your vision when you track to the sides is disconjugate (out of sync) and is unclear if this is because your symptoms are just feeling off but I do recommendthat you try wearing a patch during the day when you are at home on 1 eye to seeif that helps. Tried changing and is well from eye to eye from 1 day to the next to see if you have any benefits from that. If after several days you havenot noticed any changes, then you can stop patching. You do not need the patch if you go out to thehouse for anything. Please follow-up with your neurologistas well as your childhood development teacher to see ifthey have any additional input or if they feel that you may need referrals elsewhere. Discharge Orders/Prescriptions Prescriptions: Continued azelastine 205.5 mcg (0.15 %) spray,non-aerosol 1 spray INTRANASAL BID PRN (Reason: allergies) montelukast [Singulair] 10 mg tablet 10 mg PO DAILY PRN (Reason: allergies) rosuvastatin 20 mg tablet 20 mg PO QDAY aspirin 81 mg tablet 81 mg PO QDAY clopidogrel 75 mg tablet 75 mg PO QDAY ezetimibe 10 mg tablet 10 mg PO QHS meclizine 25 mg tablet 12.5 mg PO BID PRN (Reason: dizziness) Qty: 30 4RF loratadine 10 mg tablet 10 mg PO DAILY PRN (Reason: allergies) Patient Comments: take 1 tablet by mouth once daily Centrum Adults 12 mcg Tablet,Chewable 1 tab PO MOWEFR famotidine 20 mg Tablet 20 mg PO DAILY PRN (Reason: gerd) Discontinued modafinil 100 mg tablet 100 mg PO BID Referrals / Follow Up: [facility] [Provider Group] - Within 1 Month Rc Estes MD [Non-Staff -Ordering Privileges, Neurology] - 08/23/25 2:00 pm Wily Carlton DO [Primary Care Provider, Medical] - Within 2 Weeks Disposition Disposition (needs filled in before D/C Order can be placed): Home, Self Care 07/14/25 1628 Cosigner Signature (if applicable): CC: Dr. Ger Kimbrough DO; Dr. Wily Carlton DO~ Signed [facility]09-24-2025 [facility] Medical Records Department [address] [place] [id number] Discharge Summary 07/14/25 1611 MR#: [id number] Acct: [id number] Name: COLIN PENN Rep #: [id number] : 1960 65 From: Ger Kimbrough DO PCP: Dr. Wily Carlton DO Status:ADM DANIE Location: [place] [address] Providers Date of Admission: 07/14/25 Primary Care Physician: Dr. Wily Carlton DO Consultations 07/14/25 11:56 Consult: Tele-Neurology Routine Consulting Provider: [facility] Reason for Consult: Acute Ischemic Stroke/TIA EMERGENT Consult: No MD Notified: Yes Date Notified: 07/14/25 Time Notified: 11:08 Method of Notification: ED Physician Initiated Nursing Unit Staff [facility] Consult: Yes Reason For Visit: LEFT SIDED PARATHESIAS Diagnosis Discharge Diagnosis (1) Paresthesias: Status: Acute Code(s): R20.2 - Paresthesia of skin Plan: Resolvied. Began the lout but now bilateral about sensation is grossly intact. Concern is for stroke or atypical migraine though the patient is not having any headache. MRI of the brain was negative. Patient had some visual disturbances that would sound like scotoma of a migraine but patient did not have a headache. Though he does have a history of migraines. 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 (2) Visual disturbance: Status: Acute Code(s): H53.9 - Unspecified visual disturbance Plan: Unclear etiology. Sounded like he was having scotoma for migraine but he did not have any headache. So that does not rule out migraine. Patient does have a history of migraines that actually went away when he had COVID. (3) Dysconjugate gaze: Status: Acute Code(s): H51.8 - Other specified disorders of binocular movement Plan: Patient has been complaining of symptoms that has been diagnosed with M???ni???re's disease but he does have disconjugate gaze with lateral eye tracking. Is unclear if this is what is causing his symptoms but I told the patient that may be something to consider patching one of his eyes to see if that helps when he is getting up about. Will stay with the MRI shows to be a shows any evidence of any stroke but if he is continuing to have the symptoms it may be advisable for him to follow-up with ophthalmology. From a sounds like and his eye exams he has done well but with this, disconjugate gaze trigger if it is more of a chronic and causing him symptoms it is unclear if he would benefit from going to a tertiary facility for myotomy procedures. Recommended patient patch 1 eye when he is at home to see if that would help some of his symptoms he just feeling unbalanced. Plan M???ni???re's disease: Follow-up with neurology. VTE prophylaxis: Low risk observation status. Not indicated. CODE STATUS: Addressed with the patient. Patient wishes to be full code. Medications at Discharge Home Medications montelukast 10 mg tablet (Singulair) 10 mg PO DAILY PRN allergies 09/27/22 azelastine 205.5 mcg (0.15 %) nasal spray 1 spray intranasal BID PRN allergies 12/19/22 loratadine 10 mg tablet 10 mg PO DAILY PRN allergies 02/14/23 multivitamin with minerals-folic acid 12 mcg chewable tablet (Centrum Adults) 1 tab PO MOWEFR supplement 02/14/23 famotidine 20 mg tablet 20 mg PO DAILY PRN gerd 03/14/23 aspirin 81 mg tablet 81 mg PO QDAY 05/24/25 clopidogrel 75 mg tablet 75 mg PO QDAY 05/24/25 ezetimibe 10 mg tablet 10 mg PO QHS 05/24/25 meclizine 25 mg tablet 12.5 mg (1/2 x 25 mg) PO BID PRN dizziness #30 tabs 05/24/25 rosuvastatin 20 mg tablet 20 mg PO QDAY 05/24/25 Hospital Course Operations None Procedures 2-D Echocardiogram Summary of Care Provided Minutes Spent on Discharge: 60 Hospital Course: This is a 65-year-old male who presents with paresthesias initially in his left upper extremity and then both upper extremities. Had no weakness. He underwent a stroke workup with a head CT CTA of the head neck and MRI of the brain that were negative. On exam, was noted that he had a disconjugate gaze with tracking. He was able to move his eyes up bilaterally but when tracking, his eyes were disconjugate. Unclear if this is an acute issue or chronic. Patient has noted feeling off for about a year which he is seeing neurology and has been diagnosed with M???ni???re's disease. Is unclear if this is chronic and that he has adapted to it because he does not have diplopia. I recommend that he follow-up with his childhood development teacher here and to see if he would need referral to tertiary facility to see if this is a ocular muscle issue or even a cranial nerve issue. Additionally with that, recommend he follow-up with his neurologist see if he would need referral to a more specialized neurologist for evaluation if he has some cranial nerve issues. Weight / BMI Weight Weight: 99.5 kg Body Mass Index (BMI) (more content not included)...[facility] 07-14-2025 Discharge summary Author Ger Jason [facility] Note Date/Time July 14, 2025 5:21pm [facility] Medical Records Department [address] [place] [address] Emergency Department Summary 07/14/25 MR#: [id number] Acct: [id number] Name: COLIN PENN Rep #:[id number] : 1960 65 From: Ger Zhu PCP: Dr. Wily Carlton, DO Status:DIS DANIE Location: [place] [address] HPI History of Present Illness Chief Complaint: Neuro S/Sx Informant: patient Onset/Context/Timing Onset: Today Context: Sudden Onset Timing: Continuous Quality and Location: Positive for Left Arm Parasthesia and - (Visual disturbance) Onset: 0650 today (approximately 45 minutes prior to arrival) Worsened by: Nothing Relieved by: Nothing Associated Symptoms Associated Symptoms: Positive for Headache; Negative for Nausea, Vomiting or Chest Pain Narrative Narrative: Patient presents with visual disturbance that began approximately 45 minutes prior to arrival. Patient states he saw flashes of colors in the peripheral vision. Patient states that later he started feeling some heaviness in his leftarm. Patient admits to some paresthesias in his left arm. Patient denies any weakness. Patient denies any slurred speech. Patient admits to a mild headache. Patient denies any chest pain. Patient denies any nausea or vomitingat this time. Patient states he gets intermittent nausea from his M?ni?re's disease. [facility] Medical History Hiatal hernia Osteoporosis DVT (deep venous thrombosis) Migraines Osteoarthritis High triglycerides History of blood clots Seasonal allergies History of DVT (deep vein thrombosis) Wears glasses High cholesterol Gastric reflux Non-smoker Cardiology follow-up encounter History of Holter monitoring History of echocardiogram History of stress test Asthma Hyperlipidemia GERD (gastroesophageal reflux disease) Insomnia Obesity Home Medications ?Medication ?Instructions ?Recorded ?Last Taken ?Type montelukast 10 mg tablet 10 mg PO DAILY PRN allergies 09/27/22 Unknown History (Singulair) azelastine 205.5 mcg (0.15 %) 1 spray intranasal BID P RN 12/19/22 Unknown History nasal spray allergies loratadine 10 mg tablet 10 mg PO DAILY PRN allergies 02/14/23 Unknown History multivitamin with minerals-folic 1 tab PO MOWEFR suppl ement 02/14/23 07/12/25 History acid 12 mcg chewable tablet (Centrum Adults) famotidine 20 mg tablet 20 mg PO DAILY PRN gerd /03/1207/11/25 History aspirin 81 mg tablet 81 mg PO QDAY 05/24/2507/13 History clopidogrel 75 mg tablet 75 mg PO QDAY 05/24/2507/13 History ezetimibe 10 mg tablet 10 mg PO QHS 05/24/25 History meclizine 25 mg tablet 12.5 mg (1/2 x 25 mg) PO BID PRN 05/24/25 Unknown Rx dizziness #30 tabs rosuvastatin 20 mg tablet 20 mg PO QDAY 05/24/2507/13 History Allergy/AdvReac Type Severity Reaction Status Date / Time Milk Containing Products Allergy throat Verified 07/14/25 07:47 (Dairy) tightens escitalopram (From Lexapro) AdvReac suicidal Verified 07/14/25 07:47 ideation Family History (Updated 07/14/25 @ 11:[address] Ger Kimbrough DO) Sister Diabetes Cancer Mother Diabetes Arthritis Heart disease Father Hypertension Arthritis Colon cancer High cholesterol CVA (cerebral vascular accident) Brother Kidney disease Surgical History H/O heart artery stent History of foot surgery Hx of arthroscopy of shoulder History of cholecystectomy right finger cyst excision H/O arthroscopy of shoulder Social History household members: spouse Smoking Status: Never smoker second hand exposure: No alcohol intake: current substance use type: does not use what type of physical activity do you participate in: walking and other frequency: 3-4 times per week ne/restoration: [employer] seatbelt use: always ROS ROS ED Constitutional Constitutional ED: Denies chills or fever(s) Eyes Eyes: Reports change in vision; Denies blurry vision ENT ENT ED: Denies rhinorrhea or sore throat Cardiovascular Cardiovascular: Denies chest pain or palpitations Respiratory/Chest Respiratory/Chest: Denies cough or dyspnea Gastrointestinal Gastrointestinal: Denies nausea or vomiting Genitourinary Genitourinary ED: Denies dysuria or hematuria Musculoskeletal Musculoskeletal: Denies back pain or neck pain Integumentary Denies abscess or rash Neurologic Neurologic: Reports headache(s) and paresthesias LUE; Denies weakness Allergic/Immunologic Allergic/Immunologic ED: Denies mouth swelling or urticaria EXAM Physical Exam Const Vital Signs: 07/14/25 07:42 07/14/25 07:46 07/14/25 07:54 Temperature 98.2 F 98.2 F Temperature Source Oral Oral Pulse Rate 99 78 Respiratory Rate 18 18 Blood Pressure 155/78 H 155/78 H Blood Pressure Mean 103 103 Pulse Ox 100 100 Oxygen Delivery Method Room Air Room Air Room Air 07/14/25 07:54 07/14/25 08:24 07/14/25 08:30 Temperature 98.2 F Temperature Source Oral Pulse Rate 78 99 94 Respiratory Rate 18 14 13 Blood Pressure 155/78 H 152/92 H 142/84 H Blood Pressure Mean 103 112 103 Pulse Ox 100 98 97 Oxygen Delivery Method Room Air Room Air Room Air 07/14/25 09:00 07/14/25 09:30 07/14/25 10:00 Temperature Temperature Source Pulse Rate 86 80 88 Respiratory Rate 16 12 Blood Pressure 136/81 H 125/81 H 125/81 H Blood Pressure Mean 99 95 95 Pulse Ox 97 Oxygen Delivery Method Positive well nourished and well developed Constitutional Narrative: BMI is 31.5. General Appearance ED: well developed and NAD HEENT Reports moist mucous membranes Eyes PERRL and EOMs intact bilaterally Eyes Narrative: Funduscopic examination was benign bilaterally. Neck supple and no JVD Resp normal respiratory effort and clear to auscultation bilaterally Cardio Rate: regular rate Rhythm: regular rhythm GI soft to palpation, non-tender and non-distended Extremity normal to inspection General Extremety ED: Negative for edema or tenderness General Extremity: Negative for edema Neuro oriented x3 and CN's II-XII intact bilaterally Neuro Narrative: There is decreased sensation to light touch in the left forearm. Sensation was intact to light touch in the upper arms and lower extremities bilaterally. Shanita Coma Scale: document GCS findings Spontaneous Obeys Commands Oriented 15 Sensorium / Orientation: alert Motor Exam: strength 5/5 throughout Psych mental status grossly normal MDM MDM MDM Narrative Medical decision making narrative: Stroke team was activated in triage. Patient was evaluated there. Stroke orderset was used. CT scan of the brain will be obtained to assess for intracranial bleeding and stroke. CTA of the head and neck will be obtained to assess for large vessel occlusion and carotid and vertebral stenosis. Chest x-ray will be obtained to assess for pneumonia or bronchitis. EKG will be obtained to assess for cardiac dysrhythmia and cardiac ischemia. CBC will be obtained to assess for leukocytosis and anemia. Basic metabolic profile will be obtained to assessfor electrolyte abnormality and renal function. PT with INR and PTT will be obtained to assess for coagulopathy. High-sensitivity troponin will be obtainedto assess for cardiac ischemia. 2-hour repeat high-sensitivity troponin will beobtained to assess for ongoing cardiac ischemia. Lab Data Attestation: I reviewed the patient's lab results. Lab results narrative: CBC was reviewed and was within normal limits. PTT was reviewed and was slightly elevated at 172. Basic metabolic profile was reviewed. Glucose was elevated at 188. The remainder is within normal limits. Initial high-sensitivity troponin was reviewed and was less than 6. PT with INR and PTT werereviewed and were within normal limits. 2-hour repeat high-sensitivity troponinwas reviewed and was 6. Labs: Laboratory Results - last 24 hr 07/14/25 07/14/25 07/14/25 07:50 08:00 10:05 WBC 4.8 RBC 4.75 Hgb 13.8 Hct 41.8 MCV 88.0 MCH 29.1 MCHC 33.0 RDW Std Deviation 44.5 H RDW Coeff of Rei 13.9 Plt Count 187 MPV 9.2 Immature Gran % (Auto) 0.600 Neut % (Auto) 43.1 L Lymph % (Auto) 44.4 H Navarro % (Auto) 7.2 Eos % (Auto) 3.6 Baso % (Auto) 1.1 H Absolute Neuts (auto) 2.1 Absolute Lymphs (auto) 2.11 Nucleated RBC % 0 PT 12.9 INR 1.0 APTT 23.7 L Sodium 139 Potassium 3.8 Chloride 104 Carbon Dioxide 23.5 Anion Gap 12 BUN 16 Creatinine 0.93 Estim Creat Clear Calc 147.36 Est GFR (MDRD) Non-Af 92 BUN/Creatinine Ratio 17.4 Glucose 188 H Calcium 8.6 Troponin T High Sens < 6 Troponin T Hi Sens 2 Hr 6 POC Glucose 172 H Radiography Chest X-Ray - ED: 1 View, Read by ED Physician, Read by Radiologist and No AcuteDisease Diagnostic Testing: Clinical Impression(s) from Imaging Studies Brain CT 07/14/25 07:54 IMPRESSION: Bilateral ethmoid sinus disease is noted. Mucosal thickening is visible in the right aspect of the sphenoid sinus. No acute intracranial pathology. Reading Location: [facility] Chest X-Ray 07/14/25 07:55 IMPRESSION: No acute process is identified in the chest. Reading Location: [facility] Head/Neck CTA 07/14/25 07:55 IMPRESSION: There is heavily calcified plaque is noted in the intracranial portion of the right and left ICA in the carotid siphon, which partly obscures the lumen with no evidence of occlusion. Reading Location: [facility] CT scan of the brain was obtained. There is no acute intracranial abnormality. There is bilateral ethmoid sinus disease noted. There is mucosal thickening in the right aspect of the sphenoid sinus. This was interpreted by the radiologistand was also independently reviewed by myself. CTA of the head and neck was obtained. There are calcified plaques in the intracranial portion of the right and left internal carotid arteries but there is no evidence of occlusion. This was interpreted by the radiologist and was also independently reviewed by myself. Portable 1 view chest x-ray was obtained. On my independent interpretation, lung jack are clear. There is normal cardiac silhouette. Bony thorax is normal. There is no acute process noted. Radiologist also interpreted the x-ray and agrees. EKG Initial EKG: Attestation: I personally reviewed and interpreted this EKG as follows: Interpretation: Sinus Rhythm (88) and No Acute Injury Pattern Comments: EKG was obtained. On my independent interpretation, it showed anormal sinus rhythm with a rate of 88. SC interval, QRS interval, and QTc intervals were all normal. Chancellor was normal. There are no acute ST or T wave changes. Prior EKG tracings: available for review Prior: Unchanged (03/26/2025) Management Discussion w/another healthcare provider: Hospitalist and Tinner Helper (Dr. De Luna, stroke neurologist [facility]) Treatment and Re-Evaluation Narrative: Patient was evaluated by stroke neurology [facility]. Patient is not a candidate for tenecteplase due to the low NIH stroke scale score. Stroke neurologist recommended further evaluation with MRI. Case was discussed with the hospitalist. Discharge Plan Dx/Rx/DC Orders Clinical Impression: Arm paresthesia, left, Visual disturbance, Hyperglycemia Disposition Disposition: Acute Care Hospital [facility] Discharge Date/Time: 07/14/25 11:40 NIHSS NIHSS 1a. Level of Consciousness: 0 - Alert; keenly responsive 1b. LOC Questions: 0 - Answers BOTH questions correctly 1c. LOC Commands: 0 - Performs BOTH tasks correctly 2. Best Gaze: 0 - Normal 4. Facial Palsy: 0 - Normal symmetrical movements 5a. Left Arm: 0 - No drift; arm holds 90 (or 45) degrees for full 10 seconds 5b. Right Arm: 0 - No drift; arm holds 90 (or 45) degrees for full 10 seconds 6a. Left Le - No drift; leg holds 30-degree position for full 5 seconds 6b. Right Le - No drift; leg holds 30-degree position for full 5 seconds 8. Sensory: 1 - Lqho-di-jzvyvfhe sensory loss; 9. Best Language: 0 - No aphasia; normal 10. Dysarthria: 0 - Normal 11. Extinction and Inattention: 0 - No abnormality Total: 1 Stroke Questions Stroke Team Activated: Yes Reviewed Inclusion/Exclusion criteria: Yes IV Thrombolytic Administered: No No contraindications from thrombolytic administration: No What to do if you have Problems For any increased pain, shortness of breath, bleeding, nausea or vomiting, chestpain, or any unexpected problems, contact your Primary Care Provider. Call [facility] ([phone]) or report to the closest Emergency Room. Call 911 if necessary. 07/14/25 174 <Electronically signed by Ger Jason DO> Cosigner Signature (if applicable): CC: Dr. Wily Carlton DO ~ Signed [facility] Work Phone: [phone] History and physical note Author Ger Kimbrough [facility] Note Date/Time July 14, 2025 11:53am [facility] Medical Records Department [address] [place] [address] H&P Exam - Hospitalist 07/14/25 1142 MR#: [id number] Acct: [id number] Name: COLIN PENN CAMI Rep #:[id number] : 1960 65 From: Ger Kimbrough DO PCP: Dr. Wily Carlton DO Status:ADM DANIE Location: [place] [address] HPI - General General Date of Admission: 07/14/25 Date of Service: 07/14/25 Chief Complaint: paresthesia. HPI Narrative COLIN PENN, is a 65 M who presents LUE paresthesia. When he got up today he had noticed visual changes and he was unclear if it was in 1 eye or both eyesbut resolved just spark pattern that led to a more of a generalized spreading light across his visual field. There was no zigzags or lightning bolts. He didnot experience any headaches but that afterwards he experienced left-sided paresthesias. Patient has a M?ni?re's disease and notes that he just feels off and has had this since 2019 when he had COVID at that time. Presented emergencyroom and underwent a workup that was unremarkable. Symptoms are improving though he does complain of paresthesias in both arms at this time but no weakness in his arms. [facility] Medical History Hiatal hernia Osteoporosis DVT (deep venous thrombosis) Migraines Osteoarthritis High triglycerides History of blood clots Seasonal allergies History of DVT (deep vein thrombosis) Wears glasses High cholesterol Gastric reflux Non-smoker Cardiology follow-up encounter History of Holter monitoring History of echocardiogram History of stress test Asthma Hyperlipidemia GERD (gastroesophageal reflux disease) Insomnia Obesity Home Medications ?Medication ?Instructions ?Recorded ?Last Taken ?Type montelukast 10 mg tablet 10 mg PO DAILY PRN allergies 09/27/22 Unknown History (Singulair) azelastine 205.5 mcg (0.15 %) 1 spray intranasal BID P RN 12/19/22 Unknown History nasal spray allergies loratadine 10 mg tablet 10 mg PO DAILY 02/14/23 Unkn own History multivitamin with minerals-folic 1 tab PO DAILY Unknown History acid 12 mcg chewable tablet (Centrum Adults) famotidine 20 mg tablet 20 mg PO DAILY 03/14/23 Unkn own History aspirin 81 mg tablet 81 mg PO QDAY 05/24/25 Unkno wn History clopidogrel 75 mg tablet 75 mg PO QDAY 05/24/25 Unkno wn History ezetimibe 10 mg tablet 10 mg PO QDAY 05/24/25 Unkno wn History meclizine 25 mg tablet 12.5 mg (1/2 x 25 mg) PO BID PRN 05/24/25 Unknown Rx dizziness #30 tabs rosuvastatin 20 mg tablet 20 mg PO QDAY 05/24/25 Unkno wn History modafinil 100 mg tablet 100 mg PO BID 07/14/25 Unkno wn History Allergy/AdvReac Type Severity Reaction Status Date / Time Milk Containing Products Allergy throat Verified 07/14/25 07:47 (Dairy) tightens escitalopram (From Lexapro) AdvReac suicidal Verified 07/14/25 07:47 ideation Family History (Updated 07/14/25 @ 11:[address] Ger Kimbrough DO) Sister Diabetes Cancer Mother Diabetes Arthritis Heart disease Father Hypertension Arthritis Colon cancer High cholesterol CVA (cerebral vascular accident) Brother Kidney disease Surgical History H/O heart artery stent History of foot surgery Hx of arthroscopy of shoulder History of cholecystectomy right finger cyst excision H/O arthroscopy of shoulder Social History household members: spouse Smoking Status: Never smoker second hand exposure: No alcohol intake: current substance use type: does not use what type of physical activity do you participate in: walking and other frequency: 3-4 times per week ne/restoration: Pent[employer] seatbelt use: always ROS ROS Narrative All review of systems were negative except as mentioned above in the history of present illness and the other review of systems. Vital Signs Vital Signs Vital Signs: 07/14/25 07:42 07/14/25 07:46 07/14/25 07:54 Temperature 36.8 C 36.8 C Temperature Source Oral Oral Pulse Rate 99 78 Respiratory Rate 18 18 Blood Pressure 155/78 H 155/78 H Blood Pressure Mean 103 103 Pulse Ox 100 100 Oxygen Delivery Method Room Air Room Air Room Air 07/14/25 07:54 07/14/25 08:24 07/14/25 08:30 Temperature 36.8 C Temperature Source Oral Pulse Rate 78 99 94 Respiratory Rate 18 14 13 Blood Pressure 155/78 H 152/92 H 142/84 H Blood Pressure Mean 103 112 103 Pulse Ox 100 98 97 Oxygen Delivery Method Room Air Room Air Room Air 07/14/25 09:00 07/14/25 09:30 07/14/25 10:00 Temperature Temperature Source Pulse Rate 86 80 88 Respiratory Rate 16 12 Blood Pressure 136/81 H 125/81 H 125/81 H Blood Pressure Mean 99 95 95 Pulse Ox 97 Oxygen Delivery Method 07/14/25 11:30 07/14/25 11:35 Temperature 36.6 C Temperature Source Pulse Rate 81 74 Respiratory Rate 16 Blood Pressure 142/79 H 142/91 H Blood Pressure Mean 100 108 Pulse Ox 100 Oxygen Delivery Method Weight Weight: 219.4 kg Body Mass Index (BMI) 69.4 Physical Exam Const alert, no apparent distress and average body habitus HEENT normocephalic, head/scalp atraumatic, hearing grossly normal bilaterally, moist oral mucous membranes, oropharynx normal and dentition normal Eyes PERRL Eyes Narrative: Bilateral nystagmus. With tracking, his eyes do become disconjugate with lateral gaze. Resp normal respiratory effort and no retractions GI normal to inspection, nondistended, normoactive bowel sounds and soft to palpation Extremity normal to inspection and full ROM Neuro oriented x3, CN's II-XII intact bilaterally, moves all extremities and no focal motor deficits Sensorium / Orientation: awake and alert Coordination / Balance: fzdtgt-qc-csjd test normal and xdab-pq-xola test normal Speech: speech normal Motor Exam: strength 5/5 throughout Psych affect normal Results Lab / Micro Data 07/14/25 08:00 07/14/25 08:00 Labs: Laboratory Results - last 24 hr 07/14/25 07:50: POC Glucose 172 H 07/14/25 08:00: WBC 4.8, RBC 4.75, Hgb 13.8, Hct 41.8, MCV 88.0, MCH 29.1, MCHC 33.0, RDW Std Deviation 44.5 H, RDW Coeff of Rei 13.9, Plt Count 187, MPV 9.2, Immature Gran % (Auto) 0.600, Neut % (Auto) 43.1 L, Lymph % (Auto) 44.4 H, Navarro % (Auto) 7.2, Eos % (Auto) 3.6, Baso % (Auto) 1.1 H, Absolute Neuts (auto) 2.1, Absolute Lymphs (auto) 2.11, Nucleated RBC % 0, PT 12.9, INR 1.0, APTT 23.7 L, Sodium 139, Potassium 3.8, Chloride 104, Carbon Dioxide 23.5, Anion Gap 12, BUN 16, Creatinine 0.93, Estim Creat Clear Calc 147.36, Est GFR (MDRD) Non-Af 92, BUN/Creatinine Ratio 17.4, Glucose 188 H, Calcium 8.6, Troponin T High Sens < 6 07/14/25 10:05: Troponin T Hi Sens 2 Hr 6 Imaging Radiology Impression Brain CT 07/14/25 07:54 IMPRESSION: Bilateral ethmoid sinus disease is noted. Mucosal thickening is visible in the right aspect of the sphenoid sinus. No acute intracranial pathology. Reading Location: [facility] Chest X-Ray 07/14/25 07:55 IMPRESSION: No acute process is identified in the chest. Reading Location: [facility] Head/Neck CTA 07/14/25 07:55 IMPRESSION: There is heavily calcified plaque is noted in the intracranial portion of the right and left ICA in the carotid siphon, which partly obscures the lumen with no evidence of occlusion. Reading Location: [facility] Assessment & Plan Assessment/Plan (1) Paresthesias: PLAN: Resolving. Began the lout but now bilateral about sensation is grossly intact. Concern is for stroke or atypical migraine though the patient is not having any headache. Check MRI of the brain, echocardiogram. (2) Visual disturbance: PLAN: Unclear etiology. Sounded like he was having scotoma for migraine but he did not have any headache. So that does not rule out migraine. Patient does have a history of migraines that actually went away when he had COVID. (3) Dysconjugate gaze: PLAN: Patient has been complaining of symptoms that has been diagnosed with M?ni?re's disease but he does have disconjugate gaze with lateral eye tracking. Is unclear if this is what is causing his symptoms but I told the patient that may be something to consider patching one of his eyes to see if that helps when he is getting up about. Will stay with the MRI shows to be a shows any evidence of any stroke but if he is continuing to have the symptoms it may be advisable for him to follow-up withophthalmology. From a sounds like and his eye exams he has done well but with this, disconjugate gaze trigger if it is more of a chronic and causing him symptoms it is unclear if he would benefit from going to a tertiary facility formyotomy procedures. PLAN: Plan M?ni?re's disease: Follow-up with neurology. VTE prophylaxis: Low risk observation status. Not indicated. CODE STATUS: Addressed with the patient. Patient wishes to be full code. Charges/Coding Visit Charges Inpatient E&M: 27613 Init Hosp L3 07/14/25 1153 <Electronically signed by Ger Kimbrough DO> Cosigner Signature (if applicable): CC: Dr. Ger Kimbrough DO; Dr. Wily Carlton DO~ Signed [facility] Work Phone: [phone] History and physical note [facility] Medical Records Department [address] [place] [address] H&P Exam - Hospitalist 07/14/25 1142 MR#: [id number] Acct: [id number] Name: COLIN PENN Rep #:[id number] : 1960 65 From: Ger Kimbrough DO PCP: Dr. Wily Carlton DO Status:ADM DANIE Location: [place] [address] HPI - General General Date of Admission: 07/14/25 Date of Service: 07/14/25 Chief Complaint: paresthesia. HPI Narrative COLIN PENN, is a 65 M who presents LUE paresthesia. When he got up today he had noticed visualchanges and he was unclear if it was in 1 eye or both eyesbut resolved just spark pattern that led to a more of a generalized spreading light across his visual field. There was no zigzags or lightning bolts. He didnot experience any headaches but that afterwards he experienced left-sided paresthesias. Patient has a M?ni?re's disease and notes that he just feels off and has had this since 2019 when he had COVID at that time. Presented emergencyroom and underwent a workup that was unremarkable. Symptoms are improving though he does complain of paresthesias in both arms at this time but no weakness in his arms. [facility] Medical History Hiatal hernia Osteoporosis DVT (deep venous thrombosis) Migraines Osteoarthritis High triglycerides History of blood clots Seasonal allergies History of DVT (deep vein thrombosis) Wears glasses High cholesterol Gastric reflux Non-smoker Cardiology follow-up encounter History of Holter monitoring History of echocardiogram History of stress test Asthma Hyperlipidemia GERD (gastroesophageal reflux disease) Insomnia Obesity Home Medications ?Medication ?Instructions ?Recorded ?Last Taken ?Type montelukast 10 mg tablet 10 mg PO DAILY PRN allergies 09/27/22 Unknown History (Singulair) azelastine 205.5 mcg (0.15 %) 1 spray intranasal BID P RN 12/19/22 Unknown History nasal spray allergies loratadine 10 mg tablet 10 mg PO DAILY 02/14/23 Unkn own History multivitamin with minerals-folic 1 tab PO DAILY Unknown History acid 12 mcg chewable tablet (Centrum Adults) famotidine 20 mg tablet 20 mg PO DAILY 03/14/23 Unkn own History aspirin 81 mg tablet 81 mg PO QDAY 05/24/25 Unkno wn History clopidogrel 75 mg tablet 75 mg PO QDAY 05/24/25 Unkno wn History ezetimibe 10 mg tablet 10 mg PO QDAY 05/24/25 Unkno wn History meclizine 25 mg tablet 12.5 mg (1/2 x 25 mg) PO BID PRN 05/24/25 Unknown Rx dizziness #30 tabs rosuvastatin 20 mg tablet 20 mg PO QDAY 05/24/25 Unkno wn History modafinil 100 mg tablet 100 mg PO BID 07/14/25 Unkno wn History Allergy/AdvReac Type Severity Reaction Status Date / Time Milk Containing Products Allergy throat Verified 07/14/25 07:47 (Dairy) tightens escitalopram (From Lexapro) AdvReac suicidal Verified 07/14/25 07:47 ideation Family History (Updated 07/14/25 @ 11:[address] Ger Kimbrough DO) Sister Diabetes Cancer Mother Diabetes Arthritis Heart disease Father Hypertension Arthritis Colon cancer High cholesterol CVA (cerebral vascular accident) Brother Kidney disease Surgical History H/O heart artery stent History of foot surgery Hx of arthroscopy of shoulder History of cholecystectomy right finger cyst excision H/O arthroscopy of shoulder Social History household members: spouse Smoking Status: Never smoker second hand exposure: No alcohol intake: current substance use type: does not use what type of physical activity do you participate in: walking and other frequency: 3-4 times per week ne/restoration: Pentec[employer]ism seatbelt use: always ROS ROS Narrative All review of systems were negative except as mentioned above in the history of present illness andthe other review of systems. Vital Signs Vital Signs Vital Signs: 07/14/25 07:42 07/14/25 07:46 07/14/25 07:54 Temperature 36.8 C 36.8 C Temperature Source Oral Oral Pulse Rate 99 78 Respiratory Rate 18 18 Blood Pressure 155/78 H 155/78 H Blood Pressure Mean 103 103 Pulse Ox 100 100 Oxygen Delivery Method Room Air Room Air Room Air 07/14/25 07:54 07/14/25 08:24 07/14/25 08:30 Temperature 36.8 C Temperature Source Oral Pulse Rate 78 99 94 Respiratory Rate 18 14 13 Blood Pressure 155/78 H 152/92 H 142/84 H Blood Pressure Mean 103 112 103 Pulse Ox 100 98 97 Oxygen Delivery Method Room Air Room Air Room Air 07/14/25 09:00 07/14/25 09:30 07/14/25 10:00 Temperature Temperature Source Pulse Rate 86 80 88 Respiratory Rate 16 12 Blood Pressure 136/81 H 125/81 H 125/81 H Blood Pressure Mean 99 95 95 Pulse Ox 97 Oxygen Delivery Method 07/14/25 11:30 07/14/25 11:35 Temperature 36.6 C Temperature Source Pulse Rate 81 74 Respiratory Rate 16 Blood Pressure 142/79 H 142/91 H Blood Pressure Mean 100 108 Pulse Ox 100 Oxygen Delivery Method Weight Weight: 219.4 kg Body Mass Index (BMI) 69.4 Physical Exam Const alert, no apparent distress and average body habitus HEENT normocephalic, head/scalp atraumatic, hearing grossly normal bilaterally, moist oral mucous membranes, oropharynx normal and dentition normal Eyes PERRL Eyes Narrative: Bilateral nystagmus. With tracking, his eyes do become disconjugate with lateral gaze. Resp normal respiratory effort and no retractions GI normal to inspection, nondistended, normoactive bowel sounds and soft to palpation Extremity normal to inspection and full ROM Neuro oriented x3, CN's II-XII intact bilaterally, moves all extremities and no focal motor deficits Sensorium / Orientation: awake and alert Coordination / Balance: vbjvzs-qg-hldp test normal and qorr-ev-tufh test normal Speech: speech normal Motor Exam: strength 5/5 throughout Psych affect normal Results Lab / Micro Data 07/14/25 08:00 07/14/25 08:00 Labs: Laboratory Results - last 24 hr 07/14/25 07:50: POC Glucose 172 H 07/14/25 08:00: WBC 4.8, RBC 4.75, Hgb 13.8, Hct 41.8, MCV 88.0, MCH 29.1, MCHC 33.0, RDW Std Deviation 44.5 H, RDW Coeff of Rei 13.9, Plt Count 187, MPV 9.2, Immature Gran % (Auto) 0.600, Neut % (Auto) 43.1 L, Lymph % (Auto) 44.4 H, Navarro % (Auto) 7.2, Eos % (Auto) 3.6, Baso % (Auto) 1.1 H, Absolute Neuts (auto) 2.1, Absolute Lymphs (auto) 2.11, Nucleated RBC % 0, PT 12.9, INR 1.0, APTT 23.7 L, Sodium 139, Potassium 3.8, Chloride 104, Carbon Dioxide 23.5, Anion Gap 12, BUN 16, Creatinine 0.93, Estim Creat Clear Calc 147.36, Est GFR (MDRD) Non-Af 92, BUN/Creatinine Ratio 17.4, Glucose 188 H, Calcium 8.6, Troponin T High Sens < 6 07/14/25 10:05: Troponin T Hi Sens 2 Hr 6 Imaging Radiology Impression Brain CT 07/14/25 07:54 IMPRESSION: Bilateral ethmoid sinus disease is noted. Mucosal thickening is visible in the right aspect of the sphenoid sinus. No acute intracranial pathology. Reading Location: [facility] Chest X-Ray 07/14/25 07:55 IMPRESSION: No acute process is identified in the chest. Reading Location: [facility] Head/Neck CTA 07/14/25 07:55 IMPRESSION: There is heavily calcified plaque is noted in the intracranial portion of the right and left ICA inthe carotid siphon, which partly obscures the lumen with no evidence of occlusion. Reading Location: [facility] Assessment & Plan Assessment/Plan (1) Paresthesias: PLAN: Resolving. Began the lout but now bilateral about sensation is grossly intact. Concern is for stroke or atypical migraine though the patient is not having any headache. Check MRIof the brain, echocardiogram. (2) Visual disturbance: PLAN: Unclear etiology. Sounded like he was having scotoma for migraine but he did not have any headache. So that does not rule out migraine. Patient does have a history of migraines that actually went away when he had COVID. (3) Dysconjugate gaze: PLAN: Patient has been complaining of symptoms that has been diagnosed with M?ni?re's disease but he does have disconjugate gaze with lateral eye tracking. Is unclear if this is what is causing his symptoms but I told the patient that may be something to consider patching one of his eyes to see if that helps when he is getting up about. Will stay with the MRI shows to be a shows any evidence of any stroke but if he is continuing to have the symptoms it may be advisable for him to follow-up withophthalmology. From a sounds like and his eye exams he has done well but with this, disconjugate gaze trigger if it is more of a chronic and causing him symptoms it is unclear if he would benefit from going to a tertiary facility formyotomy procedures. PLAN: Plan M?ni?re's disease: Follow-up with neurology. VTE prophylaxis: Low risk observation status. Not indicated. CODE STATUS: Addressed with the patient. Patient wishes to be full code. Charges/Coding Visit Charges Inpatient E&M: 43237 Init Hosp L3 07/14/25 1153 Cosigner Signature (if applicable): CC: Dr. Ger Kimbrough DO; Dr. Wily Carlton, DO~ Signed [facility]09-24-2025 Radiology Diagnostic study note [facility] Imaging Services [address] [place] [address] Chest 1 View MR#: [id number] Acct: [id number] Name: COLIN PENN Rep #: [id number] : 1960 M 65 From: Viki Silvestre MD PCP: Dr. Wily Carlton DO Status: REG ER Study:Chest 1 View Date of Exam: 5 Exam# [id number] Ordering Dr: Ger Jason DO PROCEDURE: CHEST 1 VIEW 07/14/2025 REASON FOR EXAM: NEURO DEFICIT, ACUTE, STROKE SUSPECTED TECHNIQUE: Frontal view of the chest. COMPARISON: None FINDINGS: Heart size and mediastinal configuration are within normal limits. There is no focal infiltrate or consolidation. There is no pneumothorax or effusion. There is no acute bony abnormality. There is no visible atherosclerosis. RAD/Chest 1 View IMPRESSION: No acute process is identified in the chest. Reading Location: [facility] CC: Dr. Ger Jsaon DO; Dr. Wily Carlton DO ~ Research Program Coordinator: Signed [facility]09-24-2025 Radiology Diagnostic study note [facility] Imaging Services [address] [place], [place] [id number] STROKE CTA Head AND Neck W/Con MR#: [id number] Acct: [id number] Name: COLIN PENN Rep #: [id number] : 1960 M 65 From: Viki Silvestre MD PCP: Dr. Wily Carlton DO Status: REG ER Study:STROKE CTA Head AND Neck W/Con Date of Exam: 07/14/25 Exam# [id number] Ordering Dr: Ger Jason DO PROCEDURE: STROKE CTA HEAD AND NECK W/CON 07/14/2025 REASON FOR EXAM: NEURO DEFICIT, ACUTE, STROKE SUSPECTED TECHNIQUE: Procedure Code: CTCTA.ST.HN Modality: CT Procedure: STROKE CTA HEAD AND NECK W/CON Multiplanar Sagittal and Coronal images were obtained. CONTRAST: 100 cc Isovue 370 One or more dose reduction techniques were used (e.g., Automated exposure control, adjustment of the mA and/or kV according to patient size, use of iterative reconstruction technique). RADIATION DOSE SUMMARY: DLP: 705 mGycm COMPARISON: None FINDINGS: Aortic Arch: Unremarkable Brachiocephalic and Subclavians: Patent RIGHT Carotid: Right CCA: Patent Right ICA: Patent Maximum stenosis (NASCET): 0 % Right ECA: Patent LEFT Carotid: Left CCA: Patent Left ICA: Patent Maximum stenosis (NASCET): 0 % Left ECA: Patent Vertebrals: Patent RIGHT Vertebral: Patent LEFT Vertebral: Patent Anatomy: There is heavily calcified plaque is noted in the intracranial portion of the right and left ICA in the carotid siphon, which partly obscures the lumen with no evidence of occlusion Aneurysm or avm: None Anterior cerebral arteries: Patent Middle cerebral arteries: Patent Basilar artery: Patent Posterior cerebral arteries: Patent Other major branches of the posterior circulation: Patent Major venous structures: Patent Other findings: Neck: Clear lungs: Clear bones: There is no acute bony abnormality CT/STROKE CTA Head AND Neck W/Con IMPRESSION: There is heavily calcified plaque is noted in the intracranial portion of the right and left ICA inthe carotid siphon, which partly obscures the lumen with no evidence of occlusion. Reading Location: [facility] CC: Dr. Ger Jason DO; Dr. Wily Carlton DO ~ Research Program Coordinator: Signed [facility]09-24-2025 Radiology Diagnostic study note [facility] Imaging Services [address] [place] [id number] STROKE Brain/Head without Cont MR#: [id number] Acct: [id number] Name: COLIN PENN Rep #: [id number] : 1960 M 65 From: Viki Silvestre MD PCP: Dr. Wily Carlton DO Status: REG ER Study:STROKE Brain/Head without Cont Date of Exam: 07/14/25 Exam# [id number] Ordering Dr: Ger Jason DO EXAM: NONCONTRAST CT SCAN OF THE HEAD CLINICAL HISTORY: Neuro deficit, stroke COMPARISON: June 20, 2022 TECHNIQUE: Serial axial series through the head were obtained without contrast. 2-D coronaland sagittal reformats were then obtained. FINDINGS: Brain: There is no acute large territorial infarct, intracranial hemorrhage, midline shift or mass effect. There are atherosclerotic vascular calcifications involving the bilateral carotid siphons.The sella and pineal gland regions appear unremarkable. There is no evidence of cerebellar tonsillar herniation. Ventricles: There is no acute hydrocephalus. Basilar cisterns are patent. Paranasal sinuses: Bilateral ethmoid sinus disease is noted. Mucosal thickeningis visible in the right aspect of the sphenoid sinus. Mastoid air cells: Well-aerated. Calvarium: The bony calvarium is intact. Orbits: The bilateral globes are symmetric, without retrobulbar compressive masslesion or hemorrhage. CT/STROKE Brain/Head without Cont IMPRESSION: Bilateral ethmoid sinus disease is noted. Mucosal thickening is visible in the right aspect of the sphenoid sinus. No acute intracranial pathology. Reading Location: [facility] CC: Dr. Ger Jason DO; Dr. Wily Carlton DO ~ Research Program Coordinator: Signed [facility]08-04-2025 Evaluation note* Diagnosis Onset Date Resolution Status Admit Date Fatigue chronic May 24 1:44pm Peripheral vestibulopathy chronic May 24, 2025 1:44pm [facility] Work Phone: 1(828) 119-329008-04-2025 Evaluation note* Diagnosis Onset Date Resolution Status Admit Date Fatigue chronic May 24 1:44pm Peripheral vestibulopathy chronic May 24, 2025 1:44pm Arm paresthesia, left acute Sep tember 2024 11:05am Dysconjugate gaze acute Septemb er 2024 11:05am Hyperglycemia acute June 222024 11:05am Paresthesias acute July 142024 11:05am Visual disturbance acute Septem roman 2024 11:05am Fatigue chronic June 2:49pm Peripheral vestibulopathy chronic July 15, 2025 2:49pm [facility] Work Phone: 1(919) 736-995706-08-2025 Hospital Discharge instructions Patient Education 03/28/2025 12:02:41 Nonspecific Chest Pain, Adult Nonspecific Chest Pain, Adult Chest pain can be caused by many different conditions. It can be caused by a condition that is life-threatening and requires treatment right away. It can also be caused by something that is not life-threatening. If you have chest pain, it can be hard to know the difference, so it is important to get help right away to make sure that you do not have a serious condition. Some life-threatening causes of chest pain include: Heart attack. A tear in the body's main blood vessel (aortic dissection). Inflammation around your heart (pericarditis). A problem in the lungs, such as a blood clot (pulmonary embolism) or a collapsed lung (pneumothorax). Some non life-threatening causes of chest pain include: Heartburn. Anxiety or stress. Damage to the bones, muscles, and cartilage that make up your chest wall. Pneumonia or bronchitis. Shingles infection (varicella-zoster virus). Chest pain can feel like: Pain or discomfort on the surface of your chest or deep in your chest. Crushing, pressure, aching, or squeezing pain. Burning or tingling. Dull or sharp pain that is worse when you move, cough, or take a deep breath. Pain or discomfort that is also felt in your back, neck, jaw, shoulder, or arm, or pain that spreads to any of these areas. Your chest pain may come and go. It may also be constant. Your health care provider will do lab tests and other studies to find the cause of your pain. Treatment will depend on the cause of your chest pain. Follow these instructions at home: Medicines Take rbtp-qgf-onmmvsd and prescription medicines only as told by your health care provider. If you were prescribed an antibiotic, take it as told by your health care provider. Do not stop taking the antibiotic even if you start to feel better. Lifestyle Rest as directed by your health care provider. Do not use any products that contain nicotine or tobacco, such as cigarettes and e-cigarettes. If you need help quitting, ask your health care provider. Do not drink alcohol. Make healthy lifestyle choices as recommended. These may include: ?Getting regular exercise. Ask your health care provider to suggest some activities that are safe for you. ?Eating a heart-healthy diet. This includes plenty of fresh fruits and vegetables, whole grains, low-fat (lean) protein, and low-fat dairy products. A dietitian can help you find healthy eating options. ?Maintaining a healthy weight. ?Managing any other health conditions you have, such as high blood pressure (hypertension) or diabetes. ?Reducing stress, such as with yoga or relaxation techniques. General instructions Pay attention to any changes in your symptoms. Tell your health care provider about them or any newsymptoms. Avoid any activities that cause chest pain. Keep all follow-up visits as told by your health care provider. This is important. This includes visits for any further testing if your chest pain does not go away. Contact a health care provider if: Your chest pain does not go away. You feel depressed. You have a fever. Get help right away if: Your chest pain gets worse. You have a cough that gets worse, or you cough up blood. You have severe pain in your abdomen. You faint. You have sudden, unexplained chest discomfort. You have sudden, unexplained discomfort in your arms, back, neck, or jaw. You have shortness of breath at any time. You suddenly start to sweat, or your skin gets clammy. You feel nausea or you vomit. You suddenly feel lightheaded or dizzy. You have severe weakness, or unexplained weakness or fatigue. Your heart begins to beat quickly, or it feels like it is skipping beats. These symptoms may represent a serious problem that is an emergency. Do not wait to see if the symptoms will go away. Get medical help right away. Call your local emergency services (911 in the [place] Do not drive yourself to the hospital. Summary Chest pain can be caused by a condition that is serious and requires urgent treatment. It may also be caused by something that is not life-threatening. If you have chest pain, it is very important to see your health care provider. Your health care provider may do lab tests and other studies to find the cause of your pain. Follow your health care provider's instructions on taking medicines, making lifestyle changes, and getting emergency treatment if symptoms become worse. Keep all follow-up visits as told by your health care provider. This includes visits for any further testing if your chest pain does not go away. This information is not intended to replace advice given to you by your health care provider. Make sure you discuss any questions you have with your health care provider. Document Released: 07/17/2006 Document Revised: 04/09/2019 Document Reviewed: 04/09/2019 [employer] Patient Education 2020 [employer]. Follow Up Care 03/27/2025 13:40:14 With:MANJU ABDI RECONCILER-FUR FLOOR WORKER Address: [address] [place] [address] [place] [address]- [phone] When:1-2 days [facility] 06-08-2025 Note Discharge Instructions Thank you for allowing [facility] to assist you with your healthcare needs. The following is importantdischarge information regarding your hospital visit. Your Care Team MANJU ABDI Your Diagnosis CAD in [place] artery Chest pain in adult Hyperlipidemia OXANA treated with BiPAP PVC (premature ventricular contraction) What to do next Scheduled Follow-Up Appointments Appointment Type When With Where Contact Information StatusCV OV 03/29/2025 09:15 AM EDT SHAYLEE PAYTON [facility] Confirmed PC OV 07/12/2025 02:00 PM EDT WILY CARLTON DO [facility] [address] [place] [address] [phone] Confirmed Follow Up Appointments Follow Up with MANJU ABDI When:Within 1-2 days Where:[address] [place] [phone] The Following Activity and Diet Have Been Ordered for You Discharge Activity - Ordered -- NO activity restrictions, 03/28/25 11:41:00 EDT Discharge Diet - Ordered -- No changes were made to your diet during your hospital stay. Please resume your pre hospitalization diet on discharge., 03/28/25 11:41:00 EDT The Following Equipment Has Been Ordered for You No qualifying data available. The Following Treatments Have Been Ordered for You Discharge Labs No qualifying data available. Discharge Radiology No qualifying data available. Other Therapies Discharge Event Monitor Instructions - Ordered -- 03/28/25 11:41:15 EDT, You have been ordered mobile outpatient telemetry. You should receive a device in the mail with further instructions. If you have not received a device within 14 days after discharge, please call [facility] at [phone]. Discharge Outpatient to Other Therapy/Tests - Ordered -- Your therapy ordered is: stress test, Relevant Diagnosis: CP,CAD, Reason for therapy: CP, 03/28/25 11:41:00 EDT Post Acute Orders No qualifying data available. Someone Will Contact You Regarding These Home Health Referrals No home referrals have been ordered for you. No one will call you. Allergies Lexapro Mental state finding Milk Products Acid reflux seasonal enviromental typical Medications Please ask your primary doctor or pharmacist before taking any other medication not listed, including over the counter drugs, herbal medications, vitamins and or supplements as they may interact withyour home medications. What How Much When Instructions Last Dose New pantoprazole (pantoprazole 40 mg oral enteric coated tablet) 1 tab(s) by mouth Once a day before a meal Duration: 30 Days Pickup at [email or web address] Unchanged acetaminophen (Tylenol 8 Hour 650 mg oral tablet, extended release) 1 tab(s) by mouth Every 8 hours as needed for as needed for pain Unchanged aspirin (aspirin 81 mg oral delayed release tablet) 1 tab(s) by mouth Once a day Unchanged clopidogrel (Plavix 75 mg oral tablet) 1 tab(s) by mouth Once a day Unchanged cyanocobalamin (Eligen B12 1000 mcg oral tablet) 1 tab(s) by mouth Once a day Unchanged ezetimibe (ezetimibe 10 mg oral tablet) 1 tab(s) by mouth Once a day Unchanged multivitamin (Vitamin B Complex oral capsule) 1 cap by mouth Every other day Unchanged rosuvastatin (rosuvastatin 20 mg oral tablet) 1 tab(s) by mouth Once a day Pharmacy Information [email or web address] 0[facility]: [address] [place], [place] [id number] [phone] Please take this list to your next doctor s visit. Bring all medications you take, including over the counter medications, herbals and other supplements with you to your doctor s visit. Patients and families are reminded to discard old lists and to update any records with all medication providers or retail pharmacies. Education Materials Nonspecific Chest Pain, Adult Chest pain can be caused by many different conditions. It can be caused by a condition that is life-threatening and requires treatment right away. It can also be caused by something that is not life-threatening. If you have chest pain, it can be hard to know the difference, so it is important to get help right away to make sure that you do not have a serious condition. Some life-threatening causes of chest pain include: Heart attack. A tear in the body's main blood vessel (aortic dissection). Inflammation around your heart (pericarditis). A problem in the lungs, such as a blood clot (pulmonary embolism) or a collapsed lung (pneumothorax). Some non life-threatening causes of chest pain include: Heartburn. Anxiety or stress. Damage to the bones, muscles, and cartilage that make up your chest wall. Pneumonia or bronchitis. Shingles infection (varicella-zoster virus). Chest pain can feel like: Pain or discomfort on the surface of your chest or deep in your chest. Crushing, pressure, aching, or squeezing pain. Burning or tingling. Dull or sharp pain that is worse when you move, cough, or take a deep breath. Pain or discomfort that is also felt in your back, neck, jaw, shoulder, or arm, or pain that spreads to any of these areas. Your chest pain may come and go. It may also be constant. Your health care provider will do lab tests and other studies to find the cause of your pain. Treatment will depend on the cause of your chest pain. Follow these instructions at home: Medicines Take qmvg-rbu-kuxqfww and prescription medicines only as told by your health care provider. If you were prescribed an antibiotic, take it as told by your health care provider. Do not stop taking the antibiotic even if you start to feel better. Lifestyle Rest as directed by your health care provider. Do not use any products that contain nicotine or tobacco, such as cigarettes and e-cigarettes. If you need help quitting, ask your health care provider. Do not drink alcohol. Make healthy lifestyle choices as recommended. These may include: ? Getting regular exercise. Ask your health care provider to suggest some activities that are safe for you. ? Eating a heart-healthy diet. This includes plenty of fresh fruits and vegetables, whole grains, low-fat (lean) protein, and low-fat dairy products. A dietitian can help you find healthy eating options. ? Maintaining a healthy weight. ? Managing any other health conditions you have, such as high blood pressure (hypertension) or diabetes. ? Reducing stress, such as with yoga or relaxation techniques. General instructions Pay attention to any changes in your symptoms. Tell your health care provider about them or any newsymptoms. Avoid any activities that cause chest pain. Keep all follow-up visits as told by your health care provider. This is important. This includes visits for any further testing if your chest pain does not go away. Contact a health care provider if: Your chest pain does not go away. You feel depressed. You have a fever. Get help right away if: Your chest pain gets worse. You have a cough that gets worse, or you cough up blood. You have severe pain in your abdomen. You faint. You have sudden, unexplained chest discomfort. You have sudden, unexplained discomfort in your arms, back, neck, or jaw. You have shortness of breath at any time. You suddenly start to sweat, or your skin gets clammy. You feel nausea or you vomit. You suddenly feel lightheaded or dizzy. You have severe weakness, or unexplained weakness or fatigue. Your heart begins to beat quickly, or it feels like it is skipping beats. These symptoms may represent a serious problem that is an emergency. Do not wait to see if the symptoms will go away. Get medical help right away. Call your local emergency services (911 in the [place] Do not drive yourself to the hospital. Summary Chest pain can be caused by a condition that is serious and requires urgent treatment. It may also be caused by something that is not life-threatening. If you have chest pain, it is very important to see your health care provider. Your health care provider may do lab tests and other studies to find the cause of your pain. Follow your health care provider's instructions on taking medicines, making lifestyle changes, and getting emergency treatment if symptoms become worse. Keep all follow-up visits as told by your health care provider. This includes visits for any further testing if your chest pain does not go away. This information is not intended to replace advice given to you by your health care provider. Make sure you discuss any questions you have with your health care provider. Document Released: 07/17/2006 Document Revised: 04/09/2019 Document Reviewed: 04/09/2019 [employer] Patient Education 2020 [employer] Additional Information VACCINATE! IT SAVES LIVES! Members of the community who have not yet received the COVID-19 vaccine and would like to receive it can visit one of [facility] vaccine clinics. There are many vaccine clinic locations within the [facility]. For locations and available times, please visit [email or web address].[place].gov/. It is important to note that some COVID mobile vaccine clinics are held outdoors and may be canceled in rainy or stormy conditions. To learn more about pediatric vaccinations (ages 5-11), we invite you to visit the [facility] webpage. https://www.[facility].org/pages/9384-Oskev-Ymmafzgqqeg-Vopfdyocem-Cjkjo-Jqb stions.htmlTo learn more about the COVID-19 vaccine, we invite you to visit the CDC website for a list of frequently asked questions.https://www.cdc.gov/coronavirus/2019-ncov/vaccines/faq.html [facility] Patient Portal Access Instructions: Stay connected with your healthcare team and access your personal medical information anytime with the [facility] Patient Portal. Please follow the directions below to create your [facility] account: 1.Access the email account you provided upon registration to the hospital/physician office.2.Look for an invitation email from [facility].3.Open the email and access the invitation link: AcceptInvitation to [facility].4.Fill in the required jack to create your account. To access your account, visit [employer]/[email or web address]. Click the blue button labeled Access Patient Portal and then log in with the username and password that you created in the steps above. You will be able to view your test results, lab results, a summary of your visits, upcoming appointments and more. There is also a convenient messaging option where you can send secure messages to your p rovider. In addition, you will have the ability to download any documents or summaries to your computer and/or send the information securely to a physician. Remember that your healthcare information is confidential, so carefully consider who you will allowto register on the [facility] Patient Portal for access to your information. You can also access the [facility] Patient Portal on the [employer] milena. Simply click on Patient Portal and then log into your account. If you would like to receive a full copy of your medical records, please contact the [facility] Medical Records Department by calling [phone], Saturday through Saturday between 8 a.m. and 4:30 p.m. HOW TO SAFELY DISPOSE OF PRESCRIPTION MEDICATIONS Please use one of the following methods to safely dispose of your unused medications. 1.Use a drug disposal kit: the drug disposal pouch allows you to safely discard your old and unuseddrugs. Ask your nurse to give you one when you are discharged.2.Visit a local take-back location: Many local pharmacies and police departments have programs that collect old and unwanted prescriptiondrugs. Call your local pharmacy or go to http://BrandShield.Win Win Slots/7X0Eh9m to find one close to you.3.Make use of household items: Use cat litter or old coffee grounds to dispose medications if other options arenot available. Mix your drugs with these household products, seal them in an airtight container andthrow it into the garbage. Call [facility]: [phone] to be sure your drugs can be disposed of in this way. Some medicines may require a different approach.4.Never flush your medications down the toilet. IF YOU HAVE BEEN PRESCRIBED AN OPIOID FOR PAIN If you have been prescribed an opioid (such as hydrocodone, oxycodone or morphine), it is critical to understand the possible side effects and risks of opioid pain medications. Even when taken as directed, opioids can have several side effects including: Tolerance, meaning you might need to take more of a medication for the same pain relief. Nausea, vomiting and/or constipation. Sleepiness, dizziness, dry mouth, confusion, depression or itching. Physical dependence, meaning you have withdrawal symptoms when a medication is stopped, can develop within a few days. KNOW YOUR RESPONSIBILITIES It is important to know exactly how much and how often to take the opioid pain medications you are prescribed. Never take opioids in higher amounts or more often than prescribed. Do not combine opioids with alcohol or other drugs that cause drowsiness, such as benzodiazepines, also known as benzos, including diazepam and alprazolam, muscle relaxants or sleep aids. Never sell or share prescription opioids. This is illegal. Store opioids in a secure place and out of reach of others (including children, family, friends and visitors). The last page of this document has been signed and retained as a CHART COPY. Signatures Patient Education Materials Nonspecific Chest Pain, Adult Medication Leaflets My discharge plan and instructions have been reviewed and explained to me and I,COLIN PENN understand my current condition and have read and understand these discharge instructions. I have received a written copy of the plan/instructions. If I have questions, I am aware that I should contact my doctor. 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 Signature: Date/Time: Relationship to Patient: Witness Name/Signature: [id number] Discharge summary Date of Service 03/28/25 Discharge Diagnosis 1 - Chest pain in adult (R07.9 - ICD-10-CM) 2 - CAD in [place] artery (I25.10 - ICD-10-CM) 3 - Hyperlipidemia (E78.49 - ICD-10-CM) 4 - OXANA treated with BiPAP (G47.33 - ICD-10-CM) 5 - PVC (premature ventricular contraction) (I49.3 - ICD-10-CM) Hospital Course 64 year old came in with chest pains , heart pounding hard. None here with ambulation. Troponins nml serially. EKG shows sinus, no ischemic changes HO LAD stent 03/13 , at the time no other significant disease elsewhere on DAPT Burping and belching a lot for a few days No bleeding SC, black stool Allergies Lexapro Mental state finding Milk Products Acid reflux seasonal enviromental typical Consults Consult to Spiritual Care Team (Consult to Pastoral Care) - Ordered -- 03/27/25 18:51:11 EDT Imaging Results and Diagnostics CXR normal Subjective On day of DC, no chest pain, SOB, palpitations, dizziness, syncope on ambulating in the hallway twice Physical Exam Vitals and Measurements T: 36.4 C (Oral) TMIN: 36.0 C (Temporal Artery) TMAX: 36.6 C (Oral) HR: 82 (Monitored) RR: 14 BP: 129/72 SpO2: 97% HT: 177.8 cm WT: 97.5 kg BMI: 30.84 Weight Dosing Weight: 97.5 kg (03/27/25) Dosing Weight: 97.5 kg (03/27/25) HEENT: No JVD or thyromegaly or cervical adenopathy Respiratory: Clear lungs without rhonchi or crackles, normal equal bilateral breath sounds Cardiac: Normal S1, S2 without murmur, rub, gallop Abdomen: Soft, normal bowel sounds, no organomegaly Neuro: 5 x 5 power all 4 extremities, no facial droop Skin: No rashes or ulcers Psychiatric: Good judgment and insight Musculoskeletal: Good range of motion of both elbows and wrists Extremities: No leg edema, varicose veins, good pedal pulses Code Status Code Status - Ordered -- 03/27/25 15:34:00 EDT, Full Code, Constant Order Admission Date 03/27/25 Discharge Date 03/28/25 Patient Instructions TAKE PANTOPRAZOLE DAILY AM DO STRESS TEST A S OUTPATIENT- OFFICE WILL CALL YOU TO SCHEDULE CALL AND DISCUSS WITH OFFICE TOMORROW REGARDING YOUR APPOINTMENT Medications New Prescription pantoprazole (pantoprazole 40 mg oral enteric coated tablet)1 tab(s) by mouth once a day before a meal for 30 Days. Refills: 0. Unchanged acetaminophen (Tylenol 8 Hour 650 mg oral tablet, extended release)1 tab(s) by mouth every 8 hours as needed as needed for pain. aspirin (aspirin 81 mg oral delayed release tablet)1 tab(s) by mouth once a day. Refills: 11. clopidogrel (Plavix 75 mg oral tablet)1 tab(s) by mouth once a day. Refills: 0. cyanocobalamin (Eligen B12 1000 mcg oral tablet)1 tab(s) by mouth once a day. ezetimibe (ezetimibe 10 mg oral tablet)1 tab(s) by mouth once a day. Refills: 3. multivitamin (Vitamin B Complex oral capsule)1 cap by mouth every other day. rosuvastatin (rosuvastatin 20 mg oral tablet)1 tab(s) by mouth once a day. Refills: 3. Follow Up Appointments No qualifying data available. SHAYLEE PAYTON ,MILENA within a week Follow Up Labs/Studies Discharge Labs No Follow-up Labs Discharge Studies Discharge Outpatient to Other Therapy/Tests - Ordered -- Your therapy ordered is: stress test, Relevant Diagnosis: CP,CAD, Reason for therapy: CP, 03/28/25 11:41:00 EDT Discharge Diet Discharge Diet - Ordered -- No changes were made to your diet during your hospital stay. Please resume your pre hospitalization diet on discharge., 03/28/25 11:41:00 EDT Discharge Activity Discharge Activity - Ordered -- NO activity restrictions, 03/28/25 11:41:00 EDT Condition on Discharge stable Discharge Disposition home Time Spent 35minutes total Digitally Signed by MARZENA WESTBROOK MD on 03/28/2025 09:59 PM [id number] History and physical note Date of Service 03/27/25 Chief Complaint Pt reports chest pain for a few days. Was seen at [facility] ED yesterday and discharged. F/U with cardiology via phone today and was told to come back to ED. Hx of 1 stent placed 1 year ago. On plavix. CP to left chest and jaw. History of Present Illness 64 yo with coronary artery disease by CTA ( MOD-SEVERE MID LAD , MOD MID LCX DISEASE, MILD RCA DISEASE 01/21/24 , CATH 02/21/24 LAD P 70 % - 3.5 mm (D) x 20 mm (L), Synergy XD stent), PVCs, hypertension hyperlipidemia, HIATAL HERNIA Comes in with left sided chest pain going to left neck for 2 days , lasts few minutes each time. Sometimes SOB with it. Pain free now. Has palpitations - racing fast 1/week for a month but for 1 week having pounding hard sensation in chest -had this prior to stent in 03/13 also No dizziness has OXANA, uses bipap but sleep unrefreshing , seeing sleep med to have this addressed No bleeding issues Troponin x2 negative, ntprobnp <35 EKG 03/27/25 SINUS, vr 80 BPM, QTc 409MSEC CXR 03/27/25 normal TTE 06/10/23 LVEF 55%, MILD MR, TRIVIAL AI CAROTID US 08/07/24 mild left ECA stenosis Review of Systems Constitutional: No fever, chills, fatigue, weight loss HEENT: + sleep apnea, no swollen neck glands Cardiovascular: + chest pain, shortness of breath, palpitations ; No dizziness, syncope, leg edema Respiratory: No shortness of breath, cough, wheezing Gastrointestinal: No abdominal pain, nausea, melena, hematochezia, heartburn, constipation, diarrhea Genitourinary: No dysuria, urgency, frequency of micturition Musculoskeletal: No back pain,muscle pains, joint pains Skin: No rashes, ulcers Neurological: No facial droop, focal numbness or weakness Psychiatric: No anxiety, depression Endocrine: No hot flashes, heat or cold intolerance, thyroid issues Hematologic/Lymphatic: No unusual bleeding or bruising Allergic/Immunologic: No seasonal allergies, sinusitis Physical Exam Vitals and Measurements T: 36.6 C (Oral) TMIN: 36.0 C (Temporal Artery) TMAX: 36.6 C (Oral) HR: 92 (Monitored) RR: 16 BP: 119/75 SpO2: 98% HT: 177.8 cm WT: 97.5 kg BMI: 30.84 Weight Dosing Weight: 97.5 kg (03/27/25) Dosing Weight: 97.5 kg (03/27/25) HEENT: No JVD or thyromegaly or cervical adenopathy Respiratory: Clear lungs without rhonchi or crackles, normal equal bilateral breath sounds Cardiac: Normal S1, S2 without murmur, rub, gallop Abdomen: Soft, normal bowel sounds, no organomegaly Neuro: 5 x 5 power all 4 extremities, no facial droop Skin: No rashes or ulcers Psychiatric: Good judgment and insight Musculoskeletal: Good range of motion of both elbows and wrists Extremities: No leg edema, varicose veins, good pedal pulses Lab Results 03/27 14:00 WBC: 6.3 Hgb: 16.3 Hct: 47.3 Platelet: 212 Neutrophil %: 62.0 Glucose Level: 92 Sodium Level: 139 Potassium Level: 4.1 BUN: 15.0 Creatinine Lvl (s): 0.93 EKG EC03/27/25: SINUS RHYTHM Electronic Signature: CRISTINA TAN MD 03/27/2025 14:04:33 Assessment/Plan 1. Chest pain in adult stress test d-dimer negative toprol XL 25mg qd 2. CAD in [place] artery No angina,euvolemic ASA, plavix, zetia, rosuvastatin exercise 3. Hyperlipidemia zetia, rosuvastatin 4. NSVT (nonsustained ventricular tachycardia) toprol stress test 5. OXANA treated with BiPAP biPAP Seeing med eval 6. PVC (premature ventricular contraction) toprol 7. CAROTID PLAQUE: statin, zetia 8. MILD MR: monitor Orders: Electrocardiogram(EKG), 03/27/25 18:51:00 EDT Problem List/Past Medical History Ongoing Anxiety BMI 30.0-30.9,adult BPPV (benign paroxysmal positional vertigo) CAD in [place] artery Central sleep apnea syndrome Chest pain in adult Dyspnea Food intolerance History of COVID-19 History of DVT of lower extremity Hyperlipidemia Lactose intolerance in adult Meniere disease NSVT (nonsustained ventricular tachycardia) Obese OXANA treated with BiPAP Palpitations Poor memory Post-COVID syndrome Primary insomnia PVC (premature ventricular contraction) S/P coronary artery stent placement Screening for prostate cancer Sleep disturbance Weak urinary stream Historical Acute vestibular neuronitis Blood pressure elevated without history of HTN Bradycardia COVID-19 Depression Disorder of sternoclavicular joint Dry eyes DVT of lower limb, acute Dysfunction of left eustachian tube Dysphagia Grief reaction Knee pain Lumbar strain Medication side effect Rib pain on left side Temporal pain Procedure/Surgical History Holter monitor: 06/23/23 Echocardiogram: 06/11/23 Holter monitor: 03/27/23 Echocardiogram: 11/15/22 Holter monitor: 10/11/22 Cardiovascular stress testin10/06/20 Echocardiogram: 09/28/20 Gallbladder: 04/15/19 Excision of ganglion cyst of finger: 2017 Rotator cuff repair: 2014 Rotator cuff repair: 2002 Vasectomy: 1997 Foot Aortic stent Tonsillectomy Medications Home Medications (7) Active aspirin 81 mg oral delayed release tablet 81 mg = 1 tab(s), Oral, qDay Eligen B12 1000 mcg oral tablet 1 tab(s), Oral, qDay ezetimibe 10 mg oral tablet 10 mg = 1 tab(s), Oral, qDay Plavix 75 mg oral tablet 75 mg = 1 tab(s), Oral, qDay rosuvastatin 20 mg oral tablet 20 mg = 1 tab(s), Oral, qDay Tylenol 8 Hour 650 mg oral tablet, extended release 650 mg = 1 tab(s), PRN, Oral, q8h Vitamin B Complex oral capsule 1 cap(s), Oral, Every other day Allergies Lexapro Mental state finding Milk Products Acid reflux seasonal enviromental typical Social History Alcohol Use: Current. Frequency: 1-2 times per month., 01/11/2025 Employment/School Status: Employed., 09/16/2019 Exercise Exercise type: Walking, Aerobics, Weight lifting. 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 Gallbladder disease: Mother and Sister. Hypertension: Father. Health Status Family Member(s) Immunizations SARS-CoV-2 mRNA (tozinameran) vaccine: 0 unknown unit (02/02/21) SARS-CoV-2 mRNA (tozinameran) vaccine: 0 unknown unit (01/02/21) Code Status Code Status - Ordered -- 03/27/25 15:34:00 EDT, Full Code, Constant Order Digitally Signed by MARZENA WESTBROOK MD on 03/27/2025 09:13 PM [id number] Note* Exam Date Time Procedure Performing Provider Status 03/27/25 6:57 PM Electrocardiogram - EKG - CV MARZENA WESTBROOK MD; Auth (Verified) ECG Final Report SINUS RHYTHM Electronic Signature: MARZENA WESTBROOK MD 03/28/2025 13:29:10 [facility] [id number] Note* Exam Date Time Procedure Performing Provider Status 03/27/25 2:10 PM XR Chest 1 View HAYDER OLSON MD; Auth (Verified) [id number] ORIGINAL EXAMINATION: ONE XRAY VIEW OF THE CHEST 03/27/2025 2:11 pm COMPARISON: 08/30/2023 HISTORY: ORDERING SYSTEM PROVIDED HISTORY: Reason for Exam: chest pain FINDINGS: Cardiomediastinal silhouette is within normal limits. There is no overt edema. No focal consolidation, pleural effusion or pneumothorax. No acute osseous abnormality. IMPRESSION: No acute cardiopulmonary process. Interpreted by: Hayder Olson Preliminary Report By: Hayder Olson Electronically signed By Hayder Olson Dictated Date: 03/27/2025 2:17:41 PM Prelim Date: 03/27/2025 2:18:04 PM Sign Date: 03/27/2025 2:18:04 PM Ordering Provider: CLIFTON ALFONSO [facility] [id number] Evaluation + Plan noteExtracted from: Title:History and Physical Author:CHRIS WESTBROOK MD Date:03/27/25 1. Chest pain in adult stress test d-dimer negative toprol XL 25mg qd 2. CAD in [place] artery No angina,euvolemic ASA, plavix, zetia, rosuvastatin exercise 3. Hyperlipidemia zetia, rosuvastatin 4. NSVT (nonsustained ventricular tachycardia) toprol stress test 5. OXANA treated with BiPAP biPAP Seeing med eval 6. PVC (premature ventricular contraction) toprol 7. CAROTID PLAQUE: statin, zetia 8. MILD MR: monitor Orders: Electrocardiogram(EKG), 03/27/25 18:51:00 EDT Future Appointments Appointment Date:03/29/2025 09:15:00 AM Scheduled Provider:SHAYLEE PAYTON Location:[facility] Appointment Type:CV OV Appointment Date:07/12/2025 02:00:00 PM Scheduled Provider:WILY CARLTON DO Location:[facility] Appointment Type:PC OV Future Scheduled Tests Radiology* NM Myocardial Spect Rest/Stress 03/29/25 [facility] 06-07-2025 Note* Exam Date Time Procedure Performing Provider Status 03/27/25 1:43 PM EKG (ED) - CV CRISTINA TAN MD; Auth (V erified) ECG Final Report SINUS RHYTHM Electronic Signature: CRISTINA TAN MD 03/27/2025 14:04:33 [facility] [id number] Discharge summary [facility] Medical Records Department [address] [place] [address] Emergency Department Summary 03/26/25 MR#: [id number] Acct: [id number] Name: COLIN PENN Rep #:[id number] : 1960 64 From: Mitchel Morel DO PCP: Care Physician,No Primary Status :REG ER Location: ED HPI History of Present Illness Chief Complaint: Chest Pain Narrative Narrative: Patient is a 64-year-old male with a past medical history of CAD status post stent in 2023, historyof DVT after a lower extremity injury, hypercholesteremia, hyperlipidemia, hiatal hernia who presents to the emergency department with a chief complaint of left-sided chest pain. Patient states thatfor the past few days now he has had chest pressure and states that it does radiate to his jaw. He states that he also has some shortness of breath but denies any recent travels. He states that talkingmakes his shortness of breathworse. He states that if he gets up and moves around he does not have worseningchest pain. 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 Patient denies smoking history, drug use, admits to occasional alcohol use [facility] Medical History Hiatal hernia Osteoporosis DVT (deep venous thrombosis) Migraines Osteoarthritis High triglycerides History of blood clots Seasonal allergies History of DVT (deep vein thrombosis) Wears glasses High cholesterol Gastric reflux Non-smoker Cardiology follow-up encounter History of Holter monitoring History of echocardiogram History of stress test Asthma Hyperlipidemia GERD (gastroesophageal reflux disease) Insomnia Obesity Home Medications ?Medication ?Instructions ?Recorded ?Last Taken ?Type rosuvastatin 5 mg tablet (Crestor) 5 mg PO QHS 1 Unknown History montelukast 10 mg tablet 10 mg PO DAILY PRN allergies 09/27/22 Unknown History (Singulair) azelastine 205.5 mcg (0.15 %) 1 spray intranasal BID P RN 12/19/22 Unknown History nasal spray allergies loratadine 10 mg tablet 10 mg PO DAILY 02/14/23 Unkn own History multivitamin with minerals-folic 1 tab PO DAILY Unknown History acid 12 mcg chewable tablet (Centrum Adults) famotidine 20 mg tablet 20 mg PO DAILY 03/14/23 Unkn own History metoprolol succinate 50 mg 50 mg PO DAILY #30 tabs 01/10 Unknown Rx tablet,extended release 24 hr hydroxyzine HCl 25 mg tablet 25 mg PO BID PRN anxiety #60 tabs 07/20/24 Unknown Rx meclizine 25 mg tablet 25 mg PO BID dizziness #60 t abs 07/20/24 Unknown Rx Allergy/AdvReac Type Severity Reaction Status Date / Time Milk Containing Products Allergy throat Verified 03/26/25 10:51 (Dairy) tightens escitalopram (From Lexapro) AdvReac suicidal Verified 03/26/25 10:51 ideation Family History Sister Diabetes Cancer Mother Diabetes Arthritis Heart disease Father Hypertension Arthritis Colon cancer High cholesterol Brother Kidney disease Surgical History History of foot surgery Hx of arthroscopy of shoulder History of cholecystectomy right finger cyst excision H/O arthroscopy of shoulder Social History household members: spouse Smoking Status: Never smoker second hand exposure: No alcohol intake: current substance use type: does not use what type of physical activity do you participate in: walking and other frequency: 3-4 times per week ne/restoration: Pentecost[employer]ism seatbelt use: always ROS ROS ED ROS Narrative Constitutional: Denies fevers, chills, headaches Eyes: Denies change in vision double vision blurry vision Cardiovascular: Complains of chest pressure as noted above denies palpitations Respiratory: Complains of shortness of breath as noted above denies coughing wheezing Abdomen: Complains of nausea denies abdominal pain vomiting diarrhea : Denies urinary symptoms Neurological: Denies numbness, weakness, tingling Musculoskeletal: Complains of back pain but has since resolved Skin: Denies rashes or lesions EXAM Physical Exam Narrative Exam Narrative: General: Patient lying in bed rest comfortably did not appear to be in acute distress Head: Atraumatic, normocephalic Eyes: PERRL bilaterally, EOMI bilateral, no conjunctival injection noted Neck: Soft, supple, trachea midline Cardiovascular: Regular rate and rhythm Respiratory: Clear to auscultation bilaterally Abdomen: Soft, nondistended, no tenderness palpation Extremities: Radial pulses +2/4 in the bilateral extremities, +5/5 strength noted in the bilateral upper and lower extremities, no pedal edema on exam Neurological: Patient following commands knew that he was at [facility] year is 2024 Skin: Warm, dry, tact no rashes or lesions noted Const Vital Signs: 03/26/25 10:45 03/26/25 11:01 03/26/25 11:14 Temperature 97.6 F L Temperature Source Oral Pulse Rate 85 Respiratory Rate 16 Respiratory Effort Normal Non-Labored Blood Pressure 127/80 H Blood Pressure Mean 95 Pulse Ox 99 Oxygen Delivery Method Room Air Room Air 03/26/25 12:17 03/26/25 12:42 03/26/25 14:00 Temperature Temperature Source Pulse Rate 88 83 82 Respiratory Rate 16 18 18 Respiratory Effort Blood Pressure 130/82 H 125/69 H 127/75 H Blood Pressure Mean 98 87 92 Pulse Ox 98 100 99 Oxygen Delivery Method Room Air Room Air Room Air MDM MDM MDM Narrative Medical decision making narrative: Patient is a 64-year-old male who presented to the emergency department the chief complaint of chest pressure. On the differential diagnosis includes but not limited to ACS, pneumonia, pneumothorax, CHF. Once workup is obtained reviewed he will be reevaluated. Patient CBC reviewed showed no evidence leukocytosis white blood count normal at5.4, he was 16.1, platelet count of 190. Patient sodium is 139, potassium normal at 4.2, creatinine normal at 1.07. Patient's troponin was less than 6 with a delta troponin obtained at 6. Patient's EKG showed sinus rhythm with a rate of 85 bpm. Patient proBNP was less than 36. Patient's chest x-ray was reviewed by myself and by radiology which showed no acute cardiopulmonary processes there is right upper quadrant abdominal surgical clips again noted. Patient ambulated well here in the emergency department had no chest pain and feels well overall. Called and discussed case with on-call pipe manufacture supervisor Dr. Robert who states thepatient can follow-up at his scheduled appointment early next week with [place] [facility]. He was advised to return with worsening symptoms or concerns. At this point time do have low suspicion that this is cardiac in n ature as he has had this for several days now and normal cardiac workup. Also he has no pain with exertion. Discussed this plan with the patient and at bedside they are agreeable thisplan all question concerns answered he is discharged home in stable condition. Lab Data Labs: Laboratory Results - last 24 hr 03/26/25 03/26/25 11:00 12:45 WBC 5.4 RBC 5.29 Hgb 16.1 Hct 48.2 MCV 91.1 MCH 30.4 MCHC 33.4 RDW Std Deviation 43.0 RDW Coeff of Rei 13.1 Plt Count 190 MPV 10.2 Immature Gran % (Auto) 0.200 Neut % (Auto) 61.7 Lymph % (Auto) 30.3 Navarro % (Auto) 6.1 Eos % (Auto) 1.1 Baso % (Auto) 0.6 Absolute Neuts (auto) 3.3 Absolute Lymphs (auto) 1.63 Nucleated RBC % 0 Sodium 139 Potassium 4.2 Chloride 102 Carbon Dioxide 25.3 Anion Gap 12 BUN 14 Creatinine 1.07 Estim Creat Clear Calc 81.52 Est GFR (MDRD) Non-Af 77 BUN/Creatinine Ratio 13.5 Glucose 125 H Calcium 9.5 Troponin T High Sens < 6 Troponin T Hi Sens 2 Hr 6 NT pro BNP II < 36 Radiography Diagnostic Testing: Clinical Impression(s) from Imaging Studies Chest X-Ray 03/26/25 11:08 IMPRESSION: Right upper quadrant abdominal surgical clips are again noted. Lungs appear clear of acute disease. No pleural effusion no pneumothorax is evident. The cardiomediastinal silhouette is within the normal range, and unchanged. Minimal degenerative changes of the thoracic spine are seen. Reading Location: [address] Discharge Plan Triage Chief Complaint: Chest Pain ED Provider: Mitchel Morel Dx/Rx/DC Orders Clinical Impression: Chest pain Prescriptions: No Action azelastine 205.5 mcg (0.15 %) spray,non-aerosol 1 spray INTRANASAL BID PRN (Reason: allergies) montelukast [Singulair] 10 mg tablet 10 mg PO DAILY PRN (Reason: allergies) hydroxyzine HCl 25 mg tablet 25 mg PO BID PRN (Reason: anxiety) Qty: 60 5RF meclizine 25 mg tablet 25 mg PO BID Qty: 60 5RF rosuvastatin [Crestor] 5 mg Tablet 5 mg PO QHS loratadine 10 mg tablet 10 mg PO DAILY Patient Comments: take 1 tablet by mouth once daily Centrum Adults 12 mcg Tablet,Chewable 1 tab PO DAILY famotidine 20 mg Tablet 20 mg PO DAILY metoprolol succinate 50 mg tablet extended release 24 hr 50 mg PO DAILY Qty: 30 11RF Primary Care Provider: Care Physician,No Primary Referrals: Colby Burnett DO [Non-Staff] - Activity Restrictions/Additional Instructions: Your blood work did not show any acute findings here today and your chest x-ray did not either. Return with worsening symptoms or any concerns. Follow-up withyour pipe manufacture supervisor at your scheduled appointment next week. Print Language: [place] Disposition Disposition: Home, Self Care What to do if you have Problems For any increased pain, shortness of breath, bleeding, nausea or vomiting, chestpain, or any unexpected problems, contact your Primary Care Provider. Call [facility] ([phone]) or report tothe closest Emergency Room. Call 911 if necessary. 03/26/25 1428 Cosigner Signature (if applicable): CC: No Primary Care Physician ~ Signed [facility]2025 Discharge summary Author Mitchel Morel [facility] Note Date/Time March 26, 2025 2:28p m [facility] Medical Records Department [address] [place] [address] Emergency Department Summary 03/26/25 MR#: [id number] Acct: [id number] Name: COLIN PENN Rep #:[id number] : 1960 64 From: Mitchel Morel DO PCP: Care Physician,No Primary Status :REG ER Location: ED HPI History of Present Illness Chief Complaint: Chest Pain Narrative Narrative: Patient is a 64-year-old male with a past medical history of CAD status post stent in 2023, history of DVT after a lower extremity injury, hypercholesteremia, hyperlipidemia, hiatal hernia who presents to the emergency department with a chief complaint of left-sided chest pain. Patient states thatfor the past few days now he has had chest pressure and states that it does radiate to his jaw. He states that he also has some shortness of breath but denies any recent travels. He states that talking makes his shortness of breathworse. He states that if he gets up and moves around he does not have worseningchest pain. 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 Patient denies smoking history, drug use, admits to occasional alcohol use [facility] Medical History Hiatal hernia Osteoporosis DVT (deep venous thrombosis) Migraines Osteoarthritis High triglycerides History of blood clots Seasonal allergies History of DVT (deep vein thrombosis) Wears glasses High cholesterol Gastric reflux Non-smoker Cardiology follow-up encounter History of Holter monitoring History of echocardiogram History of stress test Asthma Hyperlipidemia GERD (gastroesophageal reflux disease) Insomnia Obesity Home Medications ?Medication ?Instructions ?Recorded ?Last Taken ?Type rosuvastatin 5 mg tablet (Crestor) 5 mg PO QHS 1 Unknown History montelukast 10 mg tablet 10 mg PO DAILY PRN allergies 09/27/22 Unknown History (Singulair) azelastine 205.5 mcg (0.15 %) 1 spray intranasal BID P RN 12/19/22 Unknown History nasal spray allergies loratadine 10 mg tablet 10 mg PO DAILY 02/14/23 Unkn own History multivitamin with minerals-folic 1 tab PO DAILY Unknown History acid 12 mcg chewable tablet (Centrum Adults) famotidine 20 mg tablet 20 mg PO DAILY 03/14/23 Unkn own History metoprolol succinate 50 mg 50 mg PO DAILY #30 tabs 01/10 Unknown Rx tablet,extended release 24 hr hydroxyzine HCl 25 mg tablet 25 mg PO BID PRN anxiety #60 tabs 07/20/24 Unknown Rx meclizine 25 mg tablet 25 mg PO BID dizziness #60 t abs 07/20/24 Unknown Rx Allergy/AdvReac Type Severity Reaction Status Date / Time Milk Containing Products Allergy throat Verified 03/26/25 10:51 (Dairy) tightens escitalopram (From Lexapro) AdvReac suicidal Verified 03/26/25 10:51 ideation Family History Sister Diabetes Cancer Mother Diabetes Arthritis Heart disease Father Hypertension Arthritis Colon cancer High cholesterol Brother Kidney disease Surgical History History of foot surgery Hx of arthroscopy of shoulder History of cholecystectomy right finger cyst excision H/O arthroscopy of shoulder Social History household members: spouse Smoking Status: Never smoker second hand exposure: No alcohol intake: current substance use type: does not use what type of physical activity do you participate in: walking and other frequency: 3-4 times per week ne/restoration: Pent[employer] seatbelt use: always ROS ROS ED ROS Narrative Constitutional: Denies fevers, chills, headaches Eyes: Denies change in vision double vision blurry vision Cardiovascular: Complains of chest pressure as noted above denies palpitations Respiratory: Complains of shortness of breath as noted above denies coughing wheezing Abdomen: Complains of nausea denies abdominal pain vomiting diarrhea : Denies urinary symptoms Neurological: Denies numbness, weakness, tingling Musculoskeletal: Complains of back pain but has since resolved Skin: Denies rashes or lesions EXAM Physical Exam Narrative Exam Narrative: General: Patient lying in bed rest comfortably did not appear to be in acute distress Head: Atraumatic, normocephalic Eyes: PERRL bilaterally, EOMI bilateral, no conjunctival injection noted Neck: Soft, supple, trachea midline Cardiovascular: Regular rate and rhythm Respiratory: Clear to auscultation bilaterally Abdomen: Soft, nondistended, no tenderness palpation Extremities: Radial pulses +2/4 in the bilateral extremities, +5/5 strength noted in the bilateral upper and lower extremities, no pedal edema on exam Neurological: Patient following commands knew that he was at [facility] year is 2024 Skin: Warm, dry, tact no rashes or lesions noted Const Vital Signs: 03/26/25 10:45 03/26/25 11:01 03/26/25 11:14 Temperature 97.6 F L Temperature Source Oral Pulse Rate 85 Respiratory Rate 16 Respiratory Effort Normal Non-Labored Blood Pressure 127/80 H Blood Pressure Mean 95 Pulse Ox 99 Oxygen Delivery Method Room Air Room Air 03/26/25 12:17 03/26/25 12:42 03/26/25 14:00 Temperature Temperature Source Pulse Rate 88 83 82 Respiratory Rate 16 18 18 Respiratory Effort Blood Pressure 130/82 H 125/69 H 127/75 H Blood Pressure Mean 98 87 92 Pulse Ox 98 100 99 Oxygen Delivery Method Room Air Room Air Room Air MDM [facility] MDM Narrative Medical decision making narrative: Patient is a 64-year-old male who presented to the emergency department the chief complaint of chest pressure. On the differential diagnosis includes but not limited to ACS, pneumonia, pneumothorax, CHF. Once workup is obtained reviewed he will be reevaluated. Patient CBC reviewed showed no evidence leukocytosis white blood count normal at5.4, he was 16.1, platelet count of 190. Patient sodium is 139, potassium normal at 4.2, creatinine normal at 1.07. Patient's troponin was less than 6 with a delta troponin obtained at 6. Patient's EKG showed sinus rhythm with a rate of 85 bpm. Patient proBNP was less than 36. Patient's chest x-ray was reviewed by myself and by radiology which showed no acute cardiopulmonary processes there is right upper quadrant abdominal surgical clips again noted. Patient ambulated well here in the emergency department had no chest pain and feels well overall. Called and discussed case with on-call pipe manufacture supervisor Dr. Robert who states thepatient can follow-up at his scheduled appointment early next week with [facility]. He was advised to return with worsening symptoms or concerns. At this point time do have low suspicion that this is cardiac in nature as he has had this for several days now and normal cardiac workup. Also he has no pain with exertion. Discussed this plan with the patient and at bedside they are agreeable thisplan all question concerns answered he is discharged home in stable condition. Lab Data Labs: Laboratory Results - last 24 hr 03/26/25 03/26/25 11:00 12:45 WBC 5.4 RBC 5.29 Hgb 16.1 Hct 48.2 MCV 91.1 MCH 30.4 MCHC 33.4 RDW Std Deviation 43.0 RDW Coeff of Rei 13.1 Plt Count 190 MPV 10.2 Immature Gran % (Auto) 0.200 Neut % (Auto) 61.7 Lymph % (Auto) 30.3 Navarro % (Auto) 6.1 Eos % (Auto) 1.1 Baso % (Auto) 0.6 Absolute Neuts (auto) 3.3 Absolute Lymphs (auto) 1.63 Nucleated RBC % 0 Sodium 139 Potassium 4.2 Chloride 102 Carbon Dioxide 25.3 Anion Gap 12 BUN 14 Creatinine 1.07 Estim Creat Clear Calc 81.52 Est GFR (MDRD) Non-Af 77 BUN/Creatinine Ratio 13.5 Glucose 125 H Calcium 9.5 Troponin T High Sens < 6 Troponin T Hi Sens 2 Hr 6 NT pro BNP II < 36 Radiography Diagnostic Testing: Clinical Impression(s) from Imaging Studies Chest X-Ray 03/26/25 11:08 IMPRESSION: Right upper quadrant abdominal surgical clips are again noted. Lungs appear clear of acute disease. No pleural effusion no pneumothorax is evident. The cardiomediastinal silhouette is within the normal range, and unchanged. Minimal degenerative changes of the thoracic spine are seen. Reading Location: [address] Discharge Plan Triage Chief Complaint: Chest Pain ED Provider: Mitchel Morel Dx/Rx/DC Orders Clinical Impression: Chest pain Prescriptions: No Action azelastine 205.5 mcg (0.15 %) spray,non-aerosol 1 spray INTRANASAL BID PRN (Reason: allergies) montelukast [Singulair] 10 mg tablet 10 mg PO DAILY PRN (Reason: allergies) hydroxyzine HCl 25 mg tablet 25 mg PO BID PRN (Reason: anxiety) Qty: 60 5RF meclizine 25 mg tablet 25 mg PO BID Qty: 60 5RF rosuvastatin [Crestor] 5 mg Tablet 5 mg PO QHS loratadine 10 mg tablet 10 mg PO DAILY Patient Comments: take 1 tablet by mouth once daily Centrum Adults 12 mcg Tablet,Chewable 1 tab PO DAILY famotidine 20 mg Tablet 20 mg PO DAILY metoprolol succinate 50 mg tablet extended release 24 hr 50 mg PO DAILY Qty: 30 11RF Primary Care Provider: Care Physician,No Primary Referrals: Colby Burnett DO [Non-Staff] - Activity Restrictions/Additional Instructions: Your blood work did not show any acute findings here today and your chest x-ray did not either. Return with worsening symptoms or any concerns. Follow-up withyour pipe manufacture supervisor at your scheduled appointment next week. Print Language: [place] Disposition Disposition: Home, Self Care What to do if you have Problems For any increased pain, shortness of breath, bleeding, nausea or vomiting, chestpain, or any unexpected problems, contact your Primary Care Provider. Call [facility] ([phone]) or report to the closest Emergency Room. Call 911 if necessary. 03/26/25 1428 <Electronically signed by Mitchel Morel DO> Cosigner Signature (if applicable): CC: No Primary Care Physician ~ Signed [facility] Work Phone: 1(628) 808-544106-06-2025 Radiology Diagnostic study note [facility] Imaging Services [address] [place], [place] [address] Chest PA and Lateral MR#: [id number] Acct: [id number] Name: COLIN PENN Rep #: [id number] : 1960 M 64 From: Quirino Cid MD PCP: Care Physician,No Primary Status: REG ER Study:Chest PA and Lateral Date of Exam: 03/26/25 Exam# [id number] Ordering Dr: Pipe Morel DO PROCEDURE: CHEST PA AND LATERAL 03/26/2025 REASON FOR EXAM: CHEST PAIN TECHNIQUE: Frontal and lateral views of the chest. COMPARISON: AP chest 05/26/2023 and PA and lateral chest of 03/28/2023 RAD/Chest PA and Lateral IMPRESSION: Right upper quadrant abdominal surgical clips are again noted. Lungs appear clear of acute disease. No pleural effusion no pneumothorax is evident. The cardiomediastinal silhouette is within the normal range, and unchanged. Minimal degenerative changes of the thoracic spine are seen. Reading Location: [id number] CC: Dr. Mitchel Morel DO; No Primary Care Physician ~ Research Program Coordinator: Signed [facility]05-03-2024 Hospital Discharge instructions Patient Education 02/21/2024 12:22:00 3- Heart Cath/PCI groin (07/2018) (CUSTOM) HEART CATHETERIZATION/PCI (groin) Discharge Instructions DIET INSTRUCTIONS Drink plenty of fluids for the next 48 hours to help your kidneys flush the heart cath dye out of your system ACTIVITIES May go up and down stairs CAREFULLY Do not drive car FOR 24 HOURS No heavy lifting GREATER THAN 10 POUNDS or pushing or straining FOR 2 DAYS Someone must stay with you at home after the procedure until the morning. BATHING/SHOWERING May tub bathe in 1 week May shower tomorrow WOUND CARE You will go home with a Band-Aid over your heart cath site. Keep a Band-Aid on for the next 24 hours and then leave open to air. Some degree of bruising and tenderness is normal around the heart cath site. It will take a while for any bruising to completely resolve. Keep your site clean and dry. You need to report the following to your pipe manufacture supervisor: Any draining or oozing from the site Any swelling at the site Any increased pain or tenderness at the site Any numbness in your leg where the procedure was done Any signs of infection IMPORTANT! CALL 911 FOR ANY BLEEDING OR SWELLING AT THE PROCEDURE SITE If there is any large amount of bleeding, you or someone else need to apply direct pressure to the site (just like the nurse did in the heart lab after your procedure). It is very important that you hold constant pressure. Do not release the pressure to check if the bleeding has stopped. You then need to be transported to the nearest emergency room. WATCH FOR SIGNS OF INFECTION (Usually appears 36-48 hours after surgery) A temperature above 100.5 Redness or swelling Increased pain Foul odor or drainage If you have any questions, please call your doctor at the number listed on your follow up instructions. Follow all instructions given to you by your physician Document Released: 10/07/2006 Document Revised: 09/23/2013 Document Reviewed: 10/08/2014 [employer]Care Patient Information 2015 [employer]. This information is not intended to replace advicegiven to you by your health care provider. Make sure you discuss any questions you have with your health care provider. 02/21/2024 12:21:56 General Anesthesia, Adult, Care After General Anesthesia, Adult, Care After This sheet gives you information about how to care for yourself after your procedure. Your health care provider may also give you more specific instructions. If you have problems or questions, contact your health care provider. What can I expect after the procedure? After the procedure, the following side effects are common: Pain or discomfort at the IV site. Nausea. Vomiting. Sore throat. Trouble concentrating. Feeling cold or chills. Weak or tired. Sleepiness and fatigue. Soreness and body aches. These side effects can affect parts of the body that were not involved in surgery. Follow these instructions at home: For at least 24 hours after the procedure: Have a responsible adult stay with you. It is important to have someone help care for you until youare awake and alert. Rest as needed. Do not: ?Participate in activities in which you could fall or become injured. ?Drive. ?Use heavy machinery. ?Drink alcohol. ?Take sleeping pills or medicines that cause drowsiness. ?Make important decisions or sign legal documents. ?Take care of children on your own. Eating and drinking Follow any instructions from your health care provider about eating or drinking restrictions. When you feel hungry, start by eating small amounts of foods that are soft and easy to digest (bland), such as toast. Gradually return to your regular diet. Drink enough fluid to keep your urine pale yellow. If you vomit, rehydrate by drinking water, juice, or clear broth. General instructions If you have sleep apnea, surgery and certain medicines can increase your risk for breathing problems. Follow instructions from your health care provider about wearing your sleep device: ?Anytime you are sleeping, including during daytime naps. ?While taking prescription pain medicines, sleeping medicines, or medicines that make you drowsy. Return to your normal activities as told by your health care provider. Ask your health care provider what activities are safe for you. Take [id number]-[id number] and prescription medicines only as told by your health care provider. If you smoke, do not smoke without supervision. Keep all follow-up visits as told by your health care provider. This is important. Contact a health care provider if: You have nausea or vomiting that does not get better with medicine. You cannot eat or drink without vomiting. You have pain that does not get better with medicine. You are unable to pass urine. You develop a skin rash. You have a fever. You have redness around your IV site that gets worse. Get help right away if: You have difficulty breathing. You have chest pain. You have blood in your urine or stool, or you vomit blood. Summary After the procedure, it is common to have a sore throat or nausea. It is also common to feel tired. Have a responsible adult stay with you for the first 24 hours after general anesthesia. It is important to have someone help care for you until you are awake and alert. When you feel hungry, start by eating small amounts of foods that are soft and easy to digest (bland), such as toast. Gradually return to your regular diet. Drink enough fluid to keep your urine pale yellow. Return to your normal activities as told by your health care provider. Ask your health care provider what activities are safe for you. This information is not intended to replace advice given to you by your health care provider. Make sure you discuss any questions you have with your health care provider. Document Released: 01/13/2002 Document Revised: 10/10/2018 Document Reviewed: 05/23/2018 [employer] Patient Education 2020 [employer] Follow Up Care 01/31/2024 15:43:15 With:AIDEE SAMUEL MD Address: [address] [place] [address] [address] [place] [address]- [phone] When:03/19/2024 10:00:00 Comments:THIS APPOINTMENT WILL BE WITH SHWETA PAYTON CNP [facility] 05-03-2024 Summary of episode note Discharge Instructions Thank you for allowing [facility] to assist you with your healthcare needs. The following is importantdischarge information regarding your hospital visit. Your Care Team COLBY BURNETT DO What to do next Scheduled Follow-Up Appointments Appointment Type When With Where Contact [facility] 03/04/2024 09:00 AM EDT COLBY BURNETT DO [facility] Hospital Follow Up 03/19/2024 10:00 AM EDT SHAYLEE PAYTON [facility] OV Follow Up 06/15/2024 02:00 PM EDT COLBY BURNETT DO [facility] Follow Up Appointments Follow Up with AIDEE SAMUEL MD When 03/19/2024 10:00 AM EDT Why: THIS APPOINTMENT WILL BE WITH SHWETA PAYTON CNP Where: [address] [facility] [address] [place], [place] [address]- [phone] The Following Activity and Diet Have Been Ordered for You Discharge Activity - Ordered -- Lifting Restricted less than 10 pounds, Follow the post-operative/post-procedure activity instructions provided by your physician's office., 02/21/24 8:22:00 EDT Discharge Diet - Ordered -- Follow the post-operative/post-procedure diet instructions provided by your physician's office.,02/21/24 8:22:00 EDT The Following Equipment Has Been Ordered for You No qualifying data available. The Following Treatments Have Been Ordered for You Discharge Labs No qualifying data available. Discharge Radiology No qualifying data available. Other Therapies No qualifying data available. Post Acute Orders No qualifying data available. Someone Will Contact You Regarding These Home Health Referrals No home referrals have been ordered for you. No one will call you. Allergies Milk Products (Acid reflux) seasonal enviromental (typical) Medications Please ask your primary doctor or pharmacist before taking any other medication not listed, including over the counter drugs, herbal medications, vitamins and or supplements as they may interact withur home medications. What How Much When Why Instructions Last Dose New aspirin (aspirin 81 mg oral delayed release tablet) 1 tab(s) by mouth Once a day Refills: 11 Pickup at [email or web address] New clopidogrel (Plavix 75 mg oral tablet) 1 tab(s) by mouth Once a day Refills: 11 Pickup at [email or web address] Unchanged famotidine (famotidine 20 mg oral tablet) 1 tab(s) by mouth Daily at bedtime Unchanged loratadine (Claritin) 5 Milligram by mouth Once a day as needed for as needed for allergy symptoms Unchanged meclizine (meclizine 12.5 mg oral tablet) 1 tab(s) by mouth Three (3) times a day as needed for as needed for dizziness Unchanged metoprolol (metoprolol succinate 50 mg oral TABLET extended release) 1 tab(s) by mouth Once a day Do not crush or chew (controlled release) Unchanged mexiletine (mexiletine 150 mg oral capsule) 1 cap by mouth Every 8 hours Unchanged montelukast (montelukast 10 mg oral tablet) 1 tab(s) by mouth Once a day Unchanged multivitamin (Multivitamin) 1 tab(s) by mouth Every day Unchanged rosuvastatin (rosuvastatin 5 mg oral tablet) 1 tab(s) by mouth Every day Hyperlipidemia Pharmacy Information [email or web address] 074: [address] [place], [place] [id number] [phone] Please take this list to your next doctor s visit. Bring all medications you take, including over the counter medications, herbals and other supplements with you to your doctor s visit. Patients and families are reminded to discard old lists and to update any records with all medication providers or retail pharmacies. Medication Leaflets clopidogrel (kloe PID oh grel) Plavix What is the most important information I should know about clopidogrel? You should not use this medicine if you have any active bleeding such as a stomach ulcer or bleeding in the brain. Clopidogrel increases your risk of bleeding, which can be severe or life- threatening. Call your doctor or seek emergency medical attention if you have bleeding that will not stop, if you have blood in your urine, black or bloody stools, or if you cough up blood or vomit that looks like coffee grounds. Do not stop taking clopidogrel without first talking to your doctor, even if you have signs of bleeding. Stopping clopidogrel may increase your risk of a heart attack or stroke. What is clopidogrel? Clopidogrel is used to lower your risk of having a stroke, blood clot, or serious heart problem after you've had a heart attack, severe chest pain (angina), or circulation problems. Clopidogrel may also be used for purposes not listed in this medication guide. What should I discuss with my healthcare provider before taking clopidogrel? You should not use clopidogrel if you are allergic to it, or if you have: any active bleeding; or a stomach ulcer or bleeding in the brain (such as from a head injury). Tell your doctor if you have ever had: an ulcer in your stomach or intestines; or a bleeding disorder or blood clotting disorder. Clopidogrel may not work as well if you have certain genetic factors that affect the breakdown of this medicine in your body. Your doctor may perform a blood test to make sure clopidogrel is right for you. This medicine is not expected to harm an unborn baby. However, taking clopidogrel within 1 week before childbirth can cause bleeding in the mother. Tell your doctor if you are or plan to become . You should not breastfeed while using this medicine. How should I take clopidogrel? Follow all directions on your prescription label and read all medication guides or instruction sheets. Use these medicines exactly as directed. Clopidogrel can be taken with or without food. Clopidogrel is sometimes taken together with aspirin. Take aspirin only if your doctor tells you to. Clopidogrel keeps your blood from coagulating (clotting) and can make it easier for you to bleed, even from a minor injury. Contact your doctor or seek emergency medical attention if you have any bleeding that will not stop. You may need to stop using clopidogrel for a short time before a surgery, medical procedure, or dental work. Any healthcare provider who treats you should know that you are taking clopidogrel. Do not stop taking clopidogrel without first talking to your doctor, even if you have signs of bleeding. Stopping the medicine could increase your risk of a heart attack or stroke. Store at room temperature away from moisture and heat. What happens if I miss a dose? Take the medicine as soon as you can, but skip the missed dose if it is almost time for your next dose. Do not take two doses at one time. What happens if I overdose? Seek emergency medical attention or call the Poison Help line at . Overdose can causeexcessive bleeding. What should I avoid while taking clopidogrel? Avoid alcohol. It can increase your risk of stomach bleeding. Avoid activities that may increase your risk of bleeding or injury. Use extra care to prevent bleeding while shaving or brushing your teeth. If you also take aspirin: Ask a doctor or pharmacist before using medicines for pain, fever, swelling, or cold/flu symptoms. They may contain ingredients similar to aspirin (such as salicylates, ibuprofen, ketoprofen, or naproxen). Taking these products together can increase your risk of bleeding. What are the possible side effects of clopidogrel? Get emergency medical help if you have signs of an allergic reaction: hives; difficult breathing; swelling of your face, lips, tongue, or throat. Clopidogrel increases your risk of bleeding, which can be severe or life- threatening. Call your doctor or seek emergency medical attention if you have bleeding that will not stop, if you have blood in your urine, black or bloody stools, or if you cough up blood or vomit that looks like coffee grounds. Also call your doctor at once if you have: nosebleeds, pale skin, easy bruising, purple spots under your skin or in your mouth; jaundice (yellowing of your skin or eyes); fast heartbeats, shortness of breath; headache, fever, weakness, feeling tired; little or no urination; a seizure; low blood sugar--headache, hunger, sweating, irritability, dizziness, fast heart rate, and feeling anxious or shaky; or signs of a blood clot--sudden numbness or weakness, confusion, problems with vision or speech. Common side effects may include: bleeding. This is not a complete list of side effects and others may occur. Call your doctor for medical advice about side effects. You may report side effects to FDA at 0-008-THR-4881. What other drugs will affect clopidogrel? Sometimes it is not safe to use certain medications at the same time. Some drugs can affect your blood levels of other drugs you take, which may increase side effects or make the medications less effective. Tell your doctor about all your other medicines, especially: a stomach acid chief ophthalmic technician such as omeprazole, Nexium, or Prilosec; an antidepressant such as citalopram, fluoxetine, sertraline, Cymbalta, Effexor, Lexapro, Pristiq, or Prozac; rifampin; a blood thinner--warfarin, Coumadin, Jantoven; or NSAIDs (nonsteroidal anti-inflammatory drugs)--aspirin, ibuprofen (Advil, Motrin), naproxen (Aleve), celecoxib, diclofenac, indomethacin, meloxicam, and others. This list is not complete. Other drugs may affect clopidogrel, including prescription and hghp-enh-qkdpops medicines, vitamins, and herbal products. Not all possible drug interactions are listed here. Where can I get more information? Your pharmacist can provide more information about clopidogrel. Remember, keep this and all other medicines out of the reach of children, never share your medicines with others, and use this medication only for the indication prescribed. Every effort has been made to ensure that the information provided by [employer]. ('[employer]') is accurate, up-to-date, and complete, but no guarantee is made to that effect. Drug information contained herein may be time sensitive. [employer] information has been compiled for use by healthcare practitioners and consumers in the [place] and therefore [employer] does not warrant that uses outside of the [place] are appropriate, unless specifically indicated otherwise. [employer] drug information does not endorse drugs, diagnose patients or recommend therapy. [employer] drug information isan informational resource designed to assist licensed healthcare practitioners in caring for their p atients and/or to serve consumers viewing this service as a supplement to, and not a substitute for, the expertise, skill, knowledge and judgment of healthcare practitioners. The absence of a warningfor a given drug or drug combination in no way should be construed to indicate that the drug or drug combination is safe, effective or appropriate for any given patient. [employer] does not assume any responsibility for any aspect of healthcare administered with the aid of information [employer] provides. The information contained herein is not intended to cover all possible uses, directions, precautions, warnings, drug interactions, allergic reactions, or adverse effects. If you have questions about the drugs you are taking, check with your doctor, nurse or pharmacist. Copyright 8784-0476 [employer]. Version: 18.01. Revision Date: 01/18/2021. Education Materials HEART CATHETERIZATION/PCI (groin) Discharge Instructions DIET INSTRUCTIONS Drink plenty of fluids for the next 48 hours to help your kidneys flush the heart cath dye out of your system ACTIVITIES May go up and down stairs CAREFULLY Do not drive car FOR 24 HOURS No heavy lifting GREATER THAN 10 POUNDS or pushing or straining FOR 2 DAYS Someone must stay with you at home after the procedure until the morning. BATHING/SHOWERING May tub bathe in 1 week May shower tomorrow WOUND CARE You will go home with a Band-Aid over your heart cath site. Keep a Band-Aid on for the next 24 hours and then leave open to air. Some degree of bruising and tenderness is normal around the heart cath site. It will take a while for any bruising to completely resolve. Keep your site clean and dry. You need to report the following to your pipe manufacture supervisor: Any draining or oozing from the site Any swelling at the site Any increased pain or tenderness at the site Any numbness in your leg where the procedure was done Any signs of infection IMPORTANT! CALL 911 FOR ANY BLEEDING OR SWELLING AT THE PROCEDURE SITE If there is any large amount of bleeding, you or someone else need to apply direct pressure to the site (just like the nurse did in the heart lab after your procedure). It is very important that you hold constant pressure. Do not release the pressure to check if the bleeding has stopped. You then need to be transported to the nearest emergency room. WATCH FOR SIGNS OF INFECTION (Usually appears 36-48 hours after surgery) A temperature above 100.5 Redness or swelling Increased pain Foul odor or drainage If you have any questions, please call your doctor at the number listed on your follow up instructions. Follow all instructions given to you by your physician Document Released: 10/07/2006 Document Revised: 09/23/2013 Document Reviewed: 10/08/2014 ExitCare Patient Information 2015 [employer]. This information is not intended to replace advicegiven to you by your health care provider. Make sure you discuss any questions you have with your health care provider. General Anesthesia, Adult, Care After This sheet gives you information about how to care for yourself after your procedure. Your health care provider may also give you more specific instructions. If you have problems or questions, contact your health care provider. What can I expect after the procedure? After the procedure, the following side effects are common: Pain or discomfort at the IV site. Nausea. Vomiting. Sore throat. Trouble concentrating. Feeling cold or chills. Weak or tired. Sleepiness and fatigue. Soreness and body aches. These side effects can affect parts of the body that were not involved in surgery. Follow these instructions at home: For at least 24 hours after the procedure: Have a responsible adult stay with you. It is important to have someone help care for you until youare awake and alert. Rest as needed. Do not: ? Participate in activities in which you could fall or become injured. ? Drive. ? Use heavy machinery. ? Drink alcohol. ? Take sleeping pills or medicines that cause drowsiness. ? Make important decisions or sign legal documents. ? Take care of children on your own. Eating and drinking Follow any instructions from your health care provider about eating or drinking restrictions. When you feel hungry, start by eating small amounts of foods that are soft and easy to digest (bland), such as toast. Gradually return to your regular diet. Drink enough fluid to keep your urine pale yellow. If you vomit, rehydrate by drinking water, juice, or clear broth. General instructions If you have sleep apnea, surgery and certain medicines can increase your risk for breathing problems. Follow instructions from your health care provider about wearing your sleep device: ? Anytime you are sleeping, including during daytime naps. ? While taking prescription pain medicines, sleeping medicines, or medicines that make you drowsy. Return to your normal activities as told by your health care provider. Ask your health care provider what activities are safe for you. Take pyyk-swz-knqtusz and prescription medicines only as told by your health care provider. If you smoke, do not smoke without supervision. Keep all follow-up visits as told by your health care provider. This is important. Contact a health care provider if: You have nausea or vomiting that does not get better with medicine. You cannot eat or drink without vomiting. You have pain that does not get better with medicine. You are unable to pass urine. You develop a skin rash. You have a fever. You have redness around your IV site that gets worse. Get help right away if: You have difficulty breathing. You have chest pain. You have blood in your urine or stool, or you vomit blood. Summary After the procedure, it is common to have a sore throat or nausea. It is also common to feel tired. Have a responsible adult stay with you for the first 24 hours after general anesthesia. It is important to have someone help care for you until you are awake and alert. When you feel hungry, start by eating small amounts of foods that are soft and easy to digest (bland), such as toast. Gradually return to your regular diet. Drink enough fluid to keep your urine pale yellow. Return to your normal activities as told by your health care provider. Ask your health care provider what activities are safe for you. This information is not intended to replace advice given to you by your health care provider. Make sure you discuss any questions you have with your health care provider. Document Released: 01/13/2002 Document Revised: 10/10/2018 Document Reviewed: 05/23/2018 [employer] Patient Education 2020 [employer]. Additional Information VACCINATE! IT SAVES LIVES! Members of the community who have not yet received the COVID-19 vaccine and would like to receive it can visit one of [facility] vaccine clinics. There are many vaccine clinic locations within the [facility]. For locations and available times, please visit [email or web address].[place].gov/. It is important to note that some COVID mobile vaccine clinics are held outdoors and may be canceled in rainy or stormy conditions. To learn more about pediatric vaccinations (ages 5-11), we invite you to visit the [facility] webpage. https://www.[facility].org/pages/3245-Dqfrs-Jrciugmsddl-Ufkhscizim-Cubbo-Clu stions.htmlTo learn more about the COVID-19 vaccine, we invite you to visit the CDC website for a list of frequently asked questions.https://www.cdc.gov/coronavirus/2019-ncov/vaccines/faq.html [facility] Patient Portal Access Instructions: Stay connected with your healthcare team and access your personal medical information anytime with the [facility] Patient Portal. Please follow the directions below to create your [facility] account: 1.Access the email account you provided upon registration to the hospital/physician office.2.Look for an invitation email from [facility].3.Open the email and access the invitation link: AcceptInvitation to [facility].4.Fill in the required jack to create your account. To access your account, visit [email or web address]. Click the blue button labeled Access Patient Portal and then log in with the username and password that you created in the steps above. You will be able to view your test results, lab results, a summary of your visits, upcoming appointments and more. There is also a convenient messaging option where you can send secure messages to your p rovider. In addition, you will have the ability to download any documents or summaries to your computer and/or send the information securely to a physician. Remember that your healthcare information is confidential, so carefully consider who you will allowto register on the [facility] Patient Portal for access to your information. You can also access the [facility] Patient Portal on the [facility] milena. Simply click on Patient Portal and then log into your account. If you would like to receive a full copy of your medical records, please contact the [facility] Medical Records Department by calling [phone], Saturday through Saturday between 8 a.m. and 4:30 p.m. HOW TO SAFELY DISPOSE OF PRESCRIPTION MEDICATIONS Please use one of the following methods to safely dispose of your unused medications. 1.Use a drug disposal kit: the drug disposal pouch allows you to safely discard your old and unuseddrugs. Ask your nurse to give you one when you are discharged.2.Visit a local take-back location: Many local pharmacies and police departments have programs that collect old and unwanted prescriptiondrugs. Call your local pharmacy or go to http://BrandShield.Win Win Slots/6C7Sq7n to find one close to you.3.Make use of household items: Use cat litter or old coffee grounds to dispose medications if other options arenot available. Mix your drugs with these household products, seal them in an airtight container andthrow it into the garbage. Call [facility]: [phone] to be sure your drugs can be disposed of in this way. Some medicines may require a different approach.4.Never flush your medications down the toilet. IF YOU HAVE BEEN PRESCRIBED AN OPIOID FOR PAIN If you have been prescribed an opioid (such as hydrocodone, oxycodone or morphine), it is critical to understand the possible side effects and risks of opioid pain medications. Even when taken as directed, opioids can have several side effects including: Tolerance, meaning you might need to take more of a medication for the same pain relief. Nausea, vomiting and/or constipation. Sleepiness, dizziness, dry mouth, confusion, depression or itching. Physical dependence, meaning you have withdrawal symptoms when a medication is stopped, can develop within a few days. KNOW YOUR RESPONSIBILITIES It is important to know exactly how much and how often to take the opioid pain medications you are prescribed. Never take opioids in higher amounts or more often than prescribed. Do not combine opioids with alcohol or other drugs that cause drowsiness, such as benzodiazepines, also known as benzos, including diazepam and alprazolam, muscle relaxants or sleep aids. Never sell or share prescription opioids. This is illegal. Store opioids in a secure place and out of reach of others (including children, family, friends and visitors). The last page of this document has been signed and retained as a CHART COPY. Signatures Patient Education Materials 3- Heart Cath/PCI groin (07/2018) (CUSTOM) General Anesthesia, Adult, Care After Medication Leaflets clopidogrel My discharge plan and instructions have been reviewed and explained to me and I,COLIN PENN understand my current condition and have read and understand these discharge instructions. I have received a written copy of the plan/instructions. If I have questions, I am aware that I should contact my doctor. 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 Signature: Date/Time: Relationship to Patient: Witness Name/Signature: [id number] Discharge summary Date of Service February 21, 2024 Discharge Diagnosis 1. Severe coronary disease status post proximal LAD stent 2. PVCs 3. Hypertension/hyperlipidemia Hospital Course Patient is a 63-year-old male he has history of coronary artery disease by CTA, PVCs, hypertension hyperlipidemia as well as DVT who presents same-day cardiac unit for equivocal stress testing as well as abnormal CTA of the coronaries concerning for proximal LAD severe disease. Underwent left heartcatheterization that revealed moderate to severe disease in the proximal LAD. FFR was performed that was positive at 0.78. He underwent PCI and stent placement under IVUS guidance without complication. He was loaded with aspirin Plavix will be continued on these for dual antiplatelet therapy. He tolerated the procedure well to the right femoral artery approach without complication. 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 Allergies Milk Products (Acid reflux) seasonal enviromental (typical) Consults No qualifying data available. Objective Vitals and Measurements T: 36.4 C (Temporal Artery) HR: 74 RR: 18 BP: 148/95 SpO2: 97% HT: 177.8 cm WT: 99.7 kg Current Weight Current Weight: 99.7 kg (02/21/24) Code Status No qualifying data available. Admission Date February 21, 2024 Discharge Date February 21, 2024 Patient Instructions Please keep all follow-up appointments. Please take all medications as prescribed. Please return to medical care if your condition worsens or changes. Lifting restriction for [address] days[address] No driving for 48 hrs. No bathing for 1 week. May shower. Medications New Prescription aspirin (aspirin 81 mg oral delayed release tablet)1 tab(s) by mouth once a day. Refills: 11. clopidogrel (Plavix 75 mg oral tablet)1 tab(s) by mouth once a day. Refills: 11. Unchanged famotidine (famotidine 20 mg oral tablet)1 tab(s) by mouth daily at bedtime. loratadine (Claritin)5 Milligram by mouth once a day as needed as needed for allergy symptoms. meclizine (meclizine 12.5 mg oral tablet)1 tab(s) by mouth three (3) times a day as needed as needed for dizziness. Refills: 2. metoprolol (metoprolol succinate 50 mg oral TABLET extended release)1 tab(s) by mouth once a day. Do not crush or chew (controlled release). Refills: 0. mexiletine (mexiletine 150 mg oral capsule)1 cap by mouth every 8 hours. Refills: 3. montelukast (montelukast 10 mg oral tablet)1 tab(s) by mouth once a day. Refills: 3. multivitamin (Multivitamin)1 tab(s) by mouth every day. rosuvastatin (rosuvastatin 5 mg oral tablet)1 tab(s) by mouth every day. Refills: 3. Follow Up Appointments No qualifying data available. Follow Up Labs/Studies Discharge Labs No Follow-up Labs Discharge Studies No Follow-up Studies Discharge Diet Discharge Diet - Ordered -- Follow the post-operative/post-procedure diet instructions provided by your physician's office.,02/21/24 8:22:00 EDT Discharge Activity Discharge Activity - Ordered -- Lifting Restricted less than 10 pounds, Follow the post-operative/post-procedure activity instructions provided by your physician's office., 02/21/24 8:22:00 EDT Condition on Discharge Stable Readmission Risk/Palliative Score No qualifying data available. Discharge Disposition Home with follow-up Digitally Signed by RAMESH JACOBS MD on 02/21/2024 04:55 PM [id number] Note* Exam Date Time Procedure Performing Provider Status 02/21/24 7:10 AM Cardiac Catheterization -CV Auth (Verified) [facility] 04-02-2024 Hospital Discharge instructions Patient Education 01/21/2024 09:42:02 Radiology- CT Coronary Angiogram (Custom) [place] Coronary CT Angiogram (Coronary CTA or Cardiac CTA) Discharge Instructions [facility] Imaging Services [address] [place] [address] Today, you had a Coronary CT Angiogram. This procedure was done to look at the anatomy of your heart and the surrounding vessels. The images obtained are to help evaluate the presence of coronary heart disease. These instructions should be followed after your procedure to reduce the chance of experiencing complications. Please follow the instructions below to reduce the chance of experiencing complications. Activity: Rest for the remainder of the day. You may resume your normal activity tomorrow. Avoid alcoholic beverages for 24 hours after your procedure. Do not drive or operate heavy machinery for 24 hours after your procedure. Do not make any legal decisions for 24 hours after your procedure. Diet: Resume your normal diet as tolerated. Medication: Please resume __all home medications today 01-21-24, except Metoprolol resume it tomorrow 01-22-24 . When to seek medical help: Arm, neck or jaw pain Angina (chest pain) or chest discomfort Shortness of breath Dizziness or lightheaded Hives or itching If you experience any of these issues during the first 24 hours, please follow the instruction below or go to the Emergency Department: call [phone] After 24 hours, contact the physician who ordered this procedure for you. Obtaining test results: Please make an appointment with your doctor to obtain your test results. They are usually availablewithin 4 to 5 business days. Do not assume everything is normal if you have not heard from your doctor or medical facility. It is important for you to follow up on all of your test results. Special Instructions: Follow Up Care 09/27/2023 09:52:11 With:AIDEE SAMUEL MD Address: [address] [place] [address]- [phone] When: Unknown Comments:Follow-up as needed [facility] 04-02-2024 Summary of episode note Discharge Instructions Thank you for allowing [facility] to assist you with your healthcare needs. The following is importantdischarge information regarding your hospital visit. Your Care Team COLBY BURNETT DO What to do next Scheduled Follow-Up Appointments Appointment Type When With Where Contact InformationPC OV 03/04/2024 09:00 AM EDT COLBY BURNETT [facility] Follow Up 06/15/2024 02:00 PM EDT COLBY BURNETTp [facility] Follow Up Appointments Follow Up with AIDEE SAMUEL MD When Why: Follow-up as needed Where: [address] [place] [address] [phone] Allergies Milk Products (Acid reflux) seasonal enviromental (typical) Medications Please ask your primary doctor or pharmacist before taking any other medication not listed, including over the counter drugs, herbal medications, vitamins and or supplements as they may interact [facility] medications. What How Much When Why Instructions Last Dose Unchanged famotidine (famotidine 20 mg oral tablet) 1 tab(s) by mouth Daily at bedtime Unchanged loratadine (Claritin) 5 Milligram by mouth Once a day as needed for as needed for allergy symptoms Unchanged meclizine (meclizine 12.5 mg oral tablet) 1 tab(s) by mouth Three (3) times a day as needed for as needed for dizziness Unchanged metoprolol (metoprolol succinate 50 mg oral TABLET extended release) 1 tab(s) by mouth Once a day Do not crush or chew (controlled release) Unchanged mexiletine (mexiletine 150 mg oral capsule) 1 cap by mouth Every 8 hours Unchanged montelukast (montelukast 10 mg oral tablet) 1 tab(s) by mouth Once a day Unchanged multivitamin (Multivitamin) 1 tab(s) by mouth Every day Unchanged rosuvastatin (rosuvastatin 5 mg oral tablet) 1 tab(s) by mouth Every day Hyperlipidemia Please take this list to your next doctor s visit. Bring all medications you take, including over the counter medications, herbals and other supplements with you to your doctor s visit. Patients and families are reminded to discard old lists and to update any records with all medication providers or retail pharmacies. Education Materials [place] Coronary CT Angiogram (Coronary CTA or Cardiac CTA) Discharge Instructions [facility] Imaging Services [address] [place] [address] Today, you had a Coronary CT Angiogram. This procedure was done to look at the anatomy of your heart and the surrounding vessels. The images obtained are to help evaluate the presence of coronary heart disease. These instructions should be followed after your procedure to reduce the chance of experiencing complications. Please follow the instructions below to reduce the chance of experiencing complications. Activity: Rest for the remainder of the day. You may resume your normal activity tomorrow. Avoid alcoholic beverages for 24 hours after your procedure. Do not drive or operate heavy machinery for 24 hours after your procedure. Do not make any legal decisions for 24 hours after your procedure. Diet: Resume your normal diet as tolerated. Medication: Please resume __all home medications today 01-21-24, except Metoprolol resume it tomorrow 01-22-24 . When to seek medical help: Arm, neck or jaw pain Angina (chest pain) or chest discomfort Shortness of breath Dizziness or lightheaded Hives or itching If you experience any of these issues during the first 24 hours, please follow the instruction below or go to the Emergency Department: call [phone] After 24 hours, contact the physician who ordered this procedure for you. Obtaining test results: Please make an appointment with your doctor to obtain your test results. They are usually availablewithin 4 to 5 business days. Do not assume everything is normal if you have not heard from your doctor or medical facility. It is important for you to follow up on all of your test results. Special Instructions: Additional Information VACCINATE! IT SAVES LIVES! Members of the community who have not yet received the COVID-19 vaccine and would like to receive it can visit one of [facility] vaccine clinics. There are many vaccine clinic locations within the [facility]. For locations and available times, please visit [email or web address].gov/. It is important to note that some COVID mobile vaccine clinics are held outdoors and may be canceled in rainy or stormy conditions. To learn more about pediatric vaccinations (ages 5-11), we invite you to visit the [facility] webpage. https://www.[facility].org/pages/6005-Bjeit-Xryxycoigsq-Gimkbyxtid-Bkkzf-Jcg stions.htmlTo learn more about the COVID-19 vaccine, we invite you to visit the CDC website for a list of frequently asked questions.https://www.cdc.gov/coronavirus/2019-ncov/vaccines/faq.html [facility] Patient Portal Access Instructions: Stay connected with your healthcare team and access your personal medical information anytime with the [facility] Patient Portal. Please follow the directions below to create your [facility] account: 1.Access the email account you provided upon registration to the hospital/physician office.2.Look for an invitation email from [facility].3.Open the email and access the invitation link: AcceptInvitation to [facility].4.Fill in the required jack to create your account. To access your account, visit [email or web address]. Click the blue button labeled Access Patient Portal and then log in with the username and password that you created in the steps above. You will be able to view your test results, lab results, a summary of your visits, upcoming appointments and more. There is also a convenient messaging option where you can send secure messages to your p AirPOSvider. In addition, you will have the ability to download any documents or summaries to your computer and/or send the information securely to a physician. Remember that your healthcare information is confidential, so carefully consider who you will allowto register on the [facility] Patient Portal for access to your information. You can also access the [facility] Patient Portal on the [facility] milena. Simply click on Patient Portal and then log into your account. If you would like to receive a full copy of your medical records, please contact the [facility] Medical Records Department by calling [phone], Saturday through Saturday between 8 a.m. and 4:30 p.m. HOW TO SAFELY DISPOSE OF PRESCRIPTION MEDICATIONS Please use one of the following methods to safely dispose of your unused medications. 1.Use a drug disposal kit: the drug disposal pouch allows you to safely discard your old and unuseddrugs. Ask your nurse to give you one when you are discharged.2.Visit a local take-back location: Many local pharmacies and police departments have programs that collect old and unwanted prescriptiondrugs. Call your local pharmacy or go to http://BrandShield.Win Win Slots/8U1Fu6s to find one close to you.3.Make use of household items: Use cat litter or old coffee grounds to dispose medications if other options arenot available. Mix your drugs with these household products, seal them in an airtight container andthrow it into the garbage. Call [facility]: [phone] to be sure your drugs can be disposed of in this way. Some medicines may require a different approach.4.Never flush your medications down the toilet. IF YOU HAVE BEEN PRESCRIBED AN OPIOID FOR PAIN If you have been prescribed an opioid (such as hydrocodone, oxycodone or morphine), it is critical to understand the possible side effects and risks of opioid pain medications. Even when taken as directed, opioids can have several side effects including: Tolerance, meaning you might need to take more of a medication for the same pain relief. Nausea, vomiting and/or constipation. Sleepiness, dizziness, dry mouth, confusion, depression or itching. Physical dependence, meaning you have withdrawal symptoms when a medication is stopped, can develop within a few days. KNOW YOUR RESPONSIBILITIES It is important to know exactly how much and how often to take the opioid pain medications you are prescribed. Never take opioids in higher amounts or more often than prescribed. Do not combine opioids with alcohol or other drugs that cause drowsiness, such as benzodiazepines, also known as benzos, including diazepam and alprazolam, muscle relaxants or sleep aids. Never sell or share prescription opioids. This is illegal. Store opioids in a secure place and out of reach of others (including children, family, friends and visitors). The last page of this document has been signed and retained as a CHART COPY. Signatures Patient Education Materials Radiology- CT Coronary Angiogram (Custom) Medication Leaflets My discharge plan and instructions have been reviewed and explained to me and I,COLIN PENN understand my current condition and have read and understand these discharge instructions. I have received a written copy of the plan/instructions. If I have questions, I am aware that I should contact my doctor. 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 Signature: Date/Time: Relationship to Patient: Witness Name/Signature: [facility]Time[id number] Note ORIGINAL NM MYOCARDIAL SPECT STRESS/REST CLINICAL STATEMENT:SOB, CP, PVCs TECHNIQUE: Stress Protocol:Tiburcio Time Exercised:6minutes Predicted Max HR:157 Max HR Achieved:144 Percent Max HR:91 Peak Systolic BP:176 Rate-Pressure product: 32610 Radiopharmaceutical(rest): Tc-99m Sestamibi IV Dose:10.1 mCi Radiopharmaceutical(stress): Tc-99m Sestamibi IV Dose:30.1 mCi SPECT acquisition:SPECT reconstruction and reorientation into short axis, vertical and horizontal long axis planes Quantitative LVEF assessment COMPARISON:10/06/20 REPORT: Consistent SPECT perfusion images demonstrate mild reversible defect in the anterior segments mid to distal. There is a small relatively fixed defect in the apical segment. Significant subdiaphragmatic tracer activity noted. No evidence of transient ischemic dilatation. Gated SPECT images demonstrate normal wall motion and wall thickening. End-diastolic volume 101 mL. Ejection fraction 58%. IMPRESSION: 1. Technically difficult study due to subdiaphragmatic tracer activity. 2. Possible mild ischemia involving anterior wall versus artifact. Prominent apical thinning noted. 3. Normal systolic function with ejection fraction of 58%. 4. Unable to open the images of prior study. Based on the report patient had mild defects in the apical anterolateral wall in prior study along with diaphragmatic attenuation. The anterior defects inthe current study if real are likely new compared to prior study Interpreted By: Christoph Manley MD Preliminary Report By: Christoph Manley MD Electronically Signed By: Christoph Manley MD Dictated Date: 09/20/2023 12:19:24 PM Prelim Date: 09/20/2023 12:19:24 PM Sign Date: 09/20/2023 12:25:38 PM Ordering Provider[facility] [id number] Hospital Discharge instructions Patient Education 08/30/2023 14:14:54 Chest Pain, Uncertain Cause Uncertain Causes of Chest Pain Chest pain can happen for a number of reasons. Sometimes the cause can't be determined. If your condition does not seem serious, and your pain does not appear to be coming from your heart, your healthcare provider may recommend watching it closely. Sometimes the signs of a serious problem take moretime to appear. Many problems not related to your heart can cause chest pain. These include: Musculoskeletal. Costochondritis is an inflammation of the tissues around the ribs that can occur from trauma or overuse injuries, or a strain of the muscles of the chest wall Respiratory. Pneumonia, collapsed lung (pneumothorax), or inflammation of the lining of the chest and lungs (pleurisy) Gastrointestinal. Esophageal reflux, heartburn, ulcers, or gallbladder disease Anxiety and panic disorders Nerve compression and inflammation Rare miscellaneous problems such as aortic aneurysm (a swelling of the large artery coming out of the heart) or pulmonary embolism (a blood clot in the lungs) Home care After your visit, follow these recommendations: Rest today and avoid strenuous activity. Take any prescribed medicine as directed. Be aware of any recurrent chest pain and notice any changes Follow-up care Follow up with your healthcare provider if you do not start to feel better within 24 hours, or as advised. Call 911 Call 911 if any of these occur: A change in the type of pain: if it feels different, becomes more severe, lasts longer, or begins to spread into your shoulder, arm, neck, jaw or back Shortness of breath or increased pain with breathing Weakness, dizziness, or fainting Rapid heart beat Crushing sensation in your chest When to seek medical advice Call your healthcare provider right away if any of the following occur: Cough with dark colored sputum (phlegm) or blood Fever of 100.4 F (38 C) or higher, or as directed by your healthcare provider Swelling, pain or redness in one leg [phone] [employer]. [address] [place] [address]. All rights reserved. This information is not intended as a substitute for professional medical care. Always follow yourhealthcare professional's instructions. Follow Up Care 08/30/2023 12:19:05 With:AIDEE SAMUEL MD Address: [address] [facility] [address] [place] [address] [phone] When:2-4 days [facility] 11-10-2023 Note Discharge Instructions Thank you for allowing [facility] to assist you with your healthcare needs. The following is importantdischarge information regarding your hospital visit. Diagnosis from Today's Visit Chest pain Chest pain What to Do Next Instructions from Your Care Team No qualifying data available. Post Acute Orders No qualifying data available. You Need to Schedule the Following Appointments Follow Up with AIDEE SAMUEL MD When Within 2-4 days Where: [address] [facility] [address] [place] [address]- [phone] Allergies Milk Products (Acid reflux) seasonal enviromental (typical) Medications Please ask your primary doctor or pharmacist before taking any other medication not listed, including over the counter drugs, herbal medications, vitamins and or supplements as they may interact [facility] medications. What How Much When Why Instructions Last Dose Unchanged loratadine (Claritin) Once a day Unchanged meclizine (meclizine 12.5 mg oral tablet) 1 tab(s) by mouth Three (3) times a day as needed for as needed for dizziness Unchanged montelukast (montelukast 10 mg oral tablet) 1 tab(s) by mouth Once a day Unchanged multivitamin (Multivitamin) 1 tab(s) by mouth Every day Unchanged rosuvastatin (rosuvastatin 5 mg oral tablet) 1 tab(s) by mouth Every day Hyperlipidemia Unchanged verapamil (verapamil 120 mg/ 24 hours oral capsule, extended release) 1 cap by mouth Once a day Please take this list to your next doctor s visit. Bring all medications you take, including over the counter medications, herbals and other supplements with you to your doctor s visit. Patients and families are reminded to discard old lists and to update any records with all medication providers or retail pharmacies. Education Materials Uncertain Causes of Chest Pain Chest pain can happen for a number of reasons. Sometimes the cause can't be determined. If your condition does not seem serious, and your pain does not appear to be coming from your heart, your healthcare provider may recommend watching it closely. Sometimes the signs of a serious problem take moretime to appear. Many problems not related to your heart can cause chest pain. These include: Musculoskeletal. Costochondritis is an inflammation of the tissues around the ribs that can occur from trauma or overuse injuries, or a strain of the muscles of the chest wall Respiratory. Pneumonia, collapsed lung (pneumothorax), or inflammation of the lining of the chest and lungs (pleurisy) Gastrointestinal. Esophageal reflux, heartburn, ulcers, or gallbladder disease Anxiety and panic disorders Nerve compression and inflammation Rare miscellaneous problems such as aortic aneurysm (a swelling of the large artery coming out of the heart) or pulmonary embolism (a blood clot in the lungs) Home care After your visit, follow these recommendations: Rest today and avoid strenuous activity. Take any prescribed medicine as directed. Be aware of any recurrent chest pain and notice any changes Follow-up care Follow up with your healthcare provider if you do not start to feel better within 24 hours, or as advised. Call 911 Call 911 if any of these occur: A change in the type of pain: if it feels different, becomes more severe, lasts longer, or begins to spread into your shoulder, arm, neck, jaw or back Shortness of breath or increased pain with breathing Weakness, dizziness, or fainting Rapid heart beat Crushing sensation in your chest When to seek medical advice Call your healthcare provider right away if any of the following occur: Cough with dark colored sputum (phlegm) or blood Fever of 100.4 F (38 C) or higher, or as directed by your healthcare provider Swelling, pain or redness in one leg [phone] [employer]. [address] [place] [address]. All rights reserved. This information is not intended as a substitute for professional medical care. Always follow yourhealthcare professional's instructions. Additional Information VACCINATE! IT SAVES LIVES! Members of the community who have not yet received the COVID-19 vaccine and would like to receive it can visit one of [facility] vaccine clinics. There are many vaccine clinic locations within the [facility]. For locations and available times, please visit www.gettheshot.coronavirus.[place].gov/. It is important to note that some COVID mobile vaccine clinics are held outdoors and may be canceled in rainy or stormy conditions. To learn more about pediatric vaccinations (ages 5-11), we invite you to visit the [facility] webpage. https://www.[facility].org/pages/5201-Upkpj-Yfuhfdidlry-Xrqlvmlxai-Egloq-Upk stions.htmlTo learn more about the COVID-19 vaccine, we invite you to visit the CDC website for a list of frequently asked questions. https://www.cdc.gov/coronavirus/2019-ncov/vaccines/faq.html [facility] Patient Portal Access Instructions: Stay connected with your healthcare team and access your personal medical information anytime with the [facility] Patient Portal. If you would like a full copy of your medical records please contact the [facility] Medical Records Department Saturday through Saturday between 8a.m. and 4:30p.m. Please follow the directions below to access the portal: 1.Access the email account you provided upon registration to [facility].2.Look for an invitation email from [facility].3.Open the email and access the invitation link: Accept Invitation to [facility].Fill in the required jack to create your account. Sign into [email or web address] with your username and password that you created in the above steps to stay up to date. You can then view a summary of results, a summary of your visits, and the ability to download your summaries to your computer or send the information securely to a physician. Remember that your healthcare information is confidential, so carefully consider who you will allow to register on the [facility] Patient Portal for access to your information. You can also access the [facility] Patient Portal on the [employer]. Simply click on Health Records under [employer] and then click on the [employer] logo. HOW TO SAFELY DISPOSE OF PRESCRIPTION MEDICATIONS Please use one of the following methods to safely dispose of your unused medications. 1.Use a drug disposal kit: the drug disposal pouch allows you to safely discard your old and unuseddrugs. Ask your nurse to give you one when you are discharged.2.Visit a local take-back location: Many local pharmacies and police departments have programs that collect old and unwanted prescriptiondrugs. Call your local pharmacy or go to http://BrandShield.Win Win Slots/5Z8Ue4v to find one close to you.3.Make use of household items: Use cat litter or old coffee grounds to dispose medications if other options arenot available. Mix your drugs with these household products, seal them in an airtight container andthrow it into the garbage. Call [facility]: [phone] to be sure your drugs can be disposed of in this way. Some medicines may require a different approach.4.Never flush your medications down the toilet. IF YOU HAVE BEEN PRESCRIBED AN OPIOIDS FOR PAIN If you have been prescribed an opioid (such as hydrocodone, oxycodone or morphine), it is critical to understand the possible side effects and risks of opioid pain medications. Even when taken as directed, opioids can have several side effects including: Tolerance, meaning you might need to take more of a medication for the same pain relief. Nausea, vomiting and/or constipation. Sleepiness, dizziness, dry mouth, confusion, depression or itching. Physical dependence, meaning you have withdrawal symptoms when a medication is stopped ? this can develop within a few days. KNOW YOUR RESPONSIBILITIES It is important to know exactly how much and how often to take the opioid pain medications you are prescribed. Never take opioids in higher amounts or more often than prescribed. Do not combine opioids with alcohol or other drugs that cause drowsiness, such as benzodiazepines, also known as benzos,including diazepam and alprazolam, muscle relaxants or sleep aids. Never sell or share prescriptionopioids. This is illegal. Store opioids in a secure place and out of reach of others (including children, family, friends and visitors). The last page(s) of this document has been signed and retained as a CHART COPY Signatures Patient Education Materials Chest Pain, Uncertain Cause Medication Leaflets My discharge plan and instructions have been reviewed and explained to me and IFILI RICHARD R understand my current condition and have read and understand these discharge instructions. I have received a written copy of the plan/instructions. If I have questions, I am aware that I should contact my doctor. 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 Signature: Date/Time: Relationship to Patient: Witness Name/Signature: Date/Time: [facility]11-10-2023 Note ORIGINAL HISTORY: Chest pain COMPARISON: 08 June 2023 FINDINGS: The lungs and pleural spaces are clear. The cardiac silhouette is within normal limits. The pulmonary vasculature is within normal limits. IMPRESSION: Clear lungs. Interpreted by: Luis Manuel Aquino MD Preliminary Report By: Luis Manuel Aquino MD Electronically signed By Luis Manuel Aquino MD Dictated Date: 08/30/2023 1:21:28 PM Prelim Date: 08/30/2023 1:21:47 PM Sign Date: 08/30/2023 1:21:47 PM [facility] Sinus rhythm Compared to ECG at 06/08/2023 12:53:20 BORDERLINE ECG Electronic Signature: CATHY COPPOLA 08/30/2023 12:37:25[facility] 08-19-2023 Hospital Discharge instructions Patient Education 06/08/2023 14:45:21 What Is Holter Monitoring? What Is Holter Monitoring? Holter monitoring is a painless way to record your heartbeat away from your healthcare provider s office. It is a small, battery-operated electrocardiogram (ECG) machine. It has wires that are put onyour chest and a device to carry with you. It is about the size of a small digital camera. Holter monitoring records your heartbeat for at least 24 hours. Your provider then reviews the information at a later time. You can get your Holter monitor at a hospital, test center, or provider s office. The monitor is used to record any problems with your heartbeat. It can show racing heartbeats, skipping heartbeats, fluttering heartbeats (palpitations), and fainting. All of these symptoms may be caused by an irregular heartbeat (arrhythmia). Your Holter monitor When you get a Holter monitor, your healthcare provider puts small pads (electrodes) on your chest.These connect to the monitor. The monitor attaches to a belt or shoulder strap. You need to keep the device on for at least 24 to 48 hours. You also need to complete a diary. Your provider will tell you how to do so. While wearing the monitor, follow these tips: Try to sleep on your back. Don t take a shower. A sponge bath is OK. Follow your normal routine. Go to work and exercise as usual. It is important to record your heartbeat during your normal activities. If an electrode falls off or the unit makes noise, call your healthcare provider. Or call the phonenumber for device support to see what you should do. When the monitoring period is over, you will return to your provider's office or an electrocardiogram center. They will look at the information recorded. Make sure you know where to return your device. It may take a week or so for the information to be looked at. Ask your provider if you should have a follow-up appointment or how you will get the results from your test. When using a Holter monitor Stay away from electric blankets, magnets, metal detectors, and high-voltage areas such as power lines. They may affect the recording. Also don t use machines with large motors or that cause vibrations. These also can affect the recording. Keeping a Holter monitor diary Keep a diary of things you do during the day. This is important. It could help you match your symptoms to times when your heart is beating abnormally. Write down when you take medicines, drive to work, take a nap, or feel stress. Record the time of day for each entry you make. Note any changes in activity, including when you take medicines. Note any symptoms you feel. These might be fluttering heartbeats or skipped beats. Turn on the monitor as instructed when you feel any unusual symptoms. When to call your healthcare provider Call your provider right away if any of these occur: Dizziness or lightheadedness Chest pain Shortness of breath Strong fluttering heartbeats [id number] [employer] [place] [address], [place] [address]. All rights reserved. This information is not intended as a substitute for professional medical care. Always follow yourhealthcare professional's instructions. 06/08/2023 14:45:19 Holter Monitor Holter Monitor A Holter monitor is a small, portable device used to monitor your heart rhythm for 24 to 72 hours or longerwhile you go about your normal daily activities at home or work. Your healthcare provider has ordered a Holter monitor so he or she can check to see if you have an arrhythmia. An arrhythmia junior change from the normal speed or pattern of these electrical impulses. This can cause the heart tobeat too fast (tachycardia), or, too slow (bradycardia), or in an unsteady pattern (irregular rhythm). When you have an arrhythmia, it can cause symptoms such as dizziness, fainting, weakness, fatigue, racing heartbeats, pounding, or irregular heartbeats. Electrical impulses normally cause the heart to beat 60 to 100 times a minute. These impulses come from a natural pacemaker deep inside the heart muscle in the right upper chamber of the heart (atrium). Each impulse spreads through the rest of the heart and causes the heart muscle to contract. Thispushes blood through the heart chambers and out to the tissues and organs of your body. Unlike an el ectrocardiogram (ECG) or a monitor used when you are in the emergency department, the Holter monitor records a continuous log of your heart rhythm activity for a much longer period of time, usually 1or 2 days and sometimes longer. This increases the chance that an arrhythmia will be seen, if one ex ists. There are other types of monitor devices when assisted monitoring is needed. Knowing the type of arrhythmia will help your healthcare provider identify the cause and the best treatment to use. Any arrhythmia that occurs during the test period will be captured on the recordingfor your doctor or healthcare team to see. Home care Do your usual activities while wearing the monitor, except: Don't bathe, shower, or swim. Stay away from metal detectors or areas of high electrical conductivity Keep a diary of your activities and anything you feel while wearing the monitor. It is especially important to write down symptoms like chest pain, palpitations, trouble breathing, or dizziness. Makesure to record the time that you felt these symptoms. Call as directed to make an appointment to get your Holter monitor. The staff there will explain how to use it. You will be given instructions on how to connect the monitor and take care of it while you are wearing it. You will also be given instructions on how to return the monitor so the results can be evaluated. Make sure you ask your provider how you will get the results of your test and what follow up plans you should make based on the results. [phone] [employer]. [address] [place] [address], [place] [address]. All rights reserved. This information is not intended as a substitute for professional medical care. Always follow yourhealthcare professional's instructions. 06/08/2023 14:44:25 Palpitations Heart Palpitations Palpitations are the feeling that your heart is beating hard, fast, or irregular. Some describe it as pounding or skipped beats. Palpitations may occur in someone with heart disease, but can alsooccur in a healthy person. Heart-related causes: Arrhythmia (a change from the heart's normal rhythm) Heart valve disease Disease of the heart muscle Coronary artery disease High blood pressure Tta-efybn-mvemdob causes: Certain medicines such as asthma inhalers and decongestants Some herbal supplements, energy drinks and pills, and weight loss pills Illegal stimulant drugs such as cocaine, crank, methamphetamine, PCP, bath salts, or ecstasy Caffeine, alcohol, and tobacco Medical conditions such as thyroid disease, anemia, anxiety, and panic disorder Sometimes the cause can't be found. Home care Follow these home care tips: Don't use too much caffeine, alcohol, tobacco, or any stimulant drugs. Tell your doctor about any prescription or icqr-adi-fkthmkl or herbal medicines you take. Follow-up care Follow up with your doctor, or as advised. Call 911 This is the fastest and safest way to get to the emergency department. The paramedics can also begin treatment on the way to the hospital, if needed. Don't wait until your symptoms are severe to call 911. These are reasons to call 911: Chest pain Shortness of breath Feeling lightheaded, faint, or dizzy Fainting or loss of consciousness Very irregular heartbeat Rapid heartbeat that makes you uncomfortable Slower than usual heart rate associated with symptoms Slower than usual heart rate Chest pain with weakness, dizziness, heavy sweating, nausea, or vomiting Extreme drowsiness or confusion Weakness of an arm or leg, or on 1 side of the face Difficulty with speech or vision When to seek medical advice Call your healthcare provider right away if you have palpitations and any of the following: Weakness Dizziness Lightheadedness Fainting [employer]. [address] [place] [address]. All rights reserved. This information is not intended as a substitute for professional medical care. Always follow yourhealthcare professional's instructions. Follow Up Care 06/08/2023 12:27:24 With:AIDEE SAMUEL MD Address: [address] [address] [phone] When:2-4 days Comments:Schedule appointment as soon as possible [facility] 08-19-2023 Emergency department Discharge summary Discharge Instructions Thank you for allowing [facility] to assist you with your healthcare needs. The following is importantdischarge information regarding your hospital visit. Diagnosis from Today's Visit Heart rate fast Lightheadedness What to Do Next Instructions from Your Care Team No qualifying data available. Post Acute Orders No qualifying data available. You Need to Schedule the Following Appointments Follow Up with AIDEE SAMUEL MD When Within 2-4 days Why: Schedule appointment as soon as possible Where: [address] [phone]- [phone] Allergies Milk Products (Acid reflux) seasonal enviromental (typical) Medications Please ask your primary doctor or pharmacist before taking any other medication not listed, including over the counter drugs, herbal medications, vitamins and or supplements as they may interact [facility] medications. What How Much When Why Instructions Last Dose Unchanged loratadine (Claritin) Once a day Unchanged meclizine (meclizine 12.5 mg oral tablet) 1 tab(s) by mouth Three (3) times a day as needed for as needed for dizziness Unchanged metoprolol (metoprolol succinate 50 mg oral TABLET extended release) See instructions 1/ 2 tab(s) Oral qDay x 1 week then stop Unchanged montelukast (montelukast 10 mg oral tablet) 1 tab(s) by mouth Once a day Unchanged multivitamin (Multivitamin) 1 tab(s) by mouth Every day Unchanged rosuvastatin (rosuvastatin 5 mg oral tablet) 1 tab(s) by mouth Every day Hyperlipidemia Unchanged traZODone (traZODone 50 mg oral tablet) 1 tab(s) by mouth Daily at bedtime Primary insomnia Please take this list to your next doctor s visit. Bring all medications you take, including over the counter medications, herbals and other supplements with you to your doctor s visit. Patients and families are reminded to discard old lists and to update any records with all medication providers or retail pharmacies. Education Materials What Is Holter Monitoring? Holter monitoring is a painless way to record your heartbeat away from your healthcare provider s office. It is a small, battery-operated electrocardiogram (ECG) machine. It has wires that are put onyour chest and a device to carry with you. It is about the size of a small digital camera. Holter monitoring records your heartbeat for at least 24 hours. Your provider then reviews the information at a later time. You can get your Holter monitor at a hospital, test center, or provider s office. The monitor is used to record any problems with your heartbeat. It can show racing heartbeats, skipping heartbeats, fluttering heartbeats (palpitations), and fainting. All of these symptoms may be caused by an irregular heartbeat (arrhythmia). Your Holter monitor When you get a Holter monitor, your healthcare provider puts small pads (electrodes) on your chest.These connect to the monitor. The monitor attaches to a belt or shoulder strap. You need to keep the device on for at least 24 to 48 hours. You also need to complete a diary. Your provider will tell you how to do so. While wearing the monitor, follow these tips: Try to sleep on your back. Don t take a shower. A sponge bath is OK. Follow your normal routine. Go to work and exercise as usual. It is important to record your heartbeat during your normal activities. If an electrode falls off or the unit makes noise, call your healthcare provider. Or call the phonenumber for device support to see what you should do. When the monitoring period is over, you will return to your provider's office or an electrocardiogram center. They will look at the information recorded. Make sure you know where to return your device. It may take a week or so for the information to be looked at. Ask your provider if you should have a follow-up appointment or how you will get the results from your test. When using a Holter monitor Stay away from electric blankets, magnets, metal detectors, and high-voltage areas such as power lines. They may affect the recording. Also don t use machines with large motors or that cause vibrations. These also can affect the recording. Keeping a Holter monitor diary Keep a diary of things you do during the day. This is important. It could help you match your symptoms to times when your heart is beating abnormally. Write down when you take medicines, drive to work, take a nap, or feel stress. Record the time of day for each entry you make. Note any changes in activity, including when you take medicines. Note any symptoms you feel. These might be fluttering heartbeats or skipped beats. Turn on the monitor as instructed when you feel any unusual symptoms. When to call your healthcare provider Call your provider right away if any of these occur: Dizziness or lightheadedness Chest pain Shortness of breath Strong fluttering heartbeats [phone] [employer]. [address] [place] [address]. All rights reserved. This information is not intended as a substitute for professional medical care. Always follow yourhealthcare professional's instructions. Holter Monitor A Holter monitor is a small, portable device used to monitor your heart rhythm for 24 to 72 hours or longerwhile you go about your normal daily activities at home or work. Your healthcare provider has ordered a Holter monitor so he or she can check to see if you have an arrhythmia. An arrhythmia junior change from the normal speed or pattern of these electrical impulses. This can cause the heart tobeat too fast (tachycardia), or, too slow (bradycardia), or in an unsteady pattern (irregular rhythm). When you have an arrhythmia, it can cause symptoms such as dizziness, fainting, weakness, fatigue, racing heartbeats, pounding, or irregular heartbeats. Electrical impulses normally cause the heart to beat 60 to 100 times a minute. These impulses come from a natural pacemaker deep inside the heart muscle in the right upper chamber of the heart (atrium). Each impulse spreads through the rest of the heart and causes the heart muscle to contract. Thispushes blood through the heart chambers and out to the tissues and organs of your body. Unlike an el ectrocardiogram (ECG) or a monitor used when you are in the emergency department, the Holter monitor records a continuous log of your heart rhythm activity for a much longer period of time, usually 1or 2 days and sometimes longer. This increases the chance that an arrhythmia will be seen, if one ex ists. There are other types of monitor devices when termination clerk monitoring is needed. Knowing the type of arrhythmia will help your healthcare provider identify the cause and the best treatment to use. Any arrhythmia that occurs during the test period will be captured on the recordingfor your doctor or healthcare team to see. Home care Do your usual activities while wearing the monitor, except: Don't bathe, shower, or swim. Stay away from metal detectors or areas of high electrical conductivity Keep a diary of your activities and anything you feel while wearing the monitor. It is especially important to write down symptoms like chest pain, palpitations, trouble breathing, or dizziness. Makesure to record the time that you felt these symptoms. Call as directed to make an appointment to get your Holter monitor. The staff there will explain how to use it. You will be given instructions on how to connect the monitor and take care of it while you are wearing it. You will also be given instructions on how to return the monitor so the results can be evaluated. Make sure you ask your provider how you will get the results of your test and what follow up plans you should make based on the results. [phone] [employer]. [address] [place] [address]. All rights reserved. This information is not intended as a substitute for professional medical care. Always follow yourhealthcare professional's instructions. Heart Palpitations Palpitations are the feeling that your heart is beating hard, fast, or irregular. Some describe it as pounding or skipped beats. Palpitations may occur in someone with heart disease, but can alsooccur in a healthy person. Heart-related causes: Arrhythmia (a change from the heart's normal rhythm) Heart valve disease Disease of the heart muscle Coronary artery disease High blood pressure Dgm-pownl-hwgcfeo causes: Certain medicines such as asthma inhalers and decongestants Some herbal supplements, energy drinks and pills, and weight loss pills Illegal stimulant drugs such as cocaine, crank, methamphetamine, PCP, bath salts, or ecstasy Caffeine, alcohol, and tobacco Medical conditions such as thyroid disease, anemia, anxiety, and panic disorder Sometimes the cause can't be found. Home care Follow these home care tips: Don't use too much caffeine, alcohol, tobacco, or any stimulant drugs. Tell your doctor about any prescription or cvfz-fdz-tpxhkrj or herbal medicines you take. Follow-up care Follow up with your doctor, or as advised. Call 911 This is the fastest and safest way to get to the emergency department. The paramedics can also begin treatment on the way to the hospital, if needed. Don't wait until your symptoms are severe to call 911. These are reasons to call 911: Chest pain Shortness of breath Feeling lightheaded, faint, or dizzy Fainting or loss of consciousness Very irregular heartbeat Rapid heartbeat that makes you uncomfortable Slower than usual heart rate associated with symptoms Slower than usual heart rate Chest pain with weakness, dizziness, heavy sweating, nausea, or vomiting Extreme drowsiness or confusion Weakness of an arm or leg, or on 1 side of the face Difficulty with speech or vision When to seek medical advice Call your healthcare provider right away if you have palpitations and any of the following: Weakness Dizziness Lightheadedness Fainting [phone] [employer]. [address] [place] [address]. All rights reserved. This information is not intended as a substitute for professional medical care. Always follow yourhealthcare professional's instructions. Additional Information VACCINATE! IT SAVES LIVES! Members of the community who have not yet received the COVID-19 vaccine and would like to receive it can visit one of [facility] vaccine clinics. There are many vaccine clinic locations within the [facility]. For locations and available times, please visit www.gettheshot.coronavirus.[place].gov/. It is important to note that some COVID mobile vaccine clinics are held outdoors and may be canceled in rainy or stormy conditions. To learn more about pediatric vaccinations (ages 5-11), we invite you to visit the [facility] webpage. https://www.[facility].org/pages/9345-Obcqk-Xhygmznkovw-Nwbognuemf-Zsdya-Ddf stions.htmlTo learn more about the COVID-19 vaccine, we invite you to visit the CDC website for a list of frequently asked questions. https://www.cdc.gov/coronavirus/2019-ncov/vaccines/faq.html [facility] Patient Portal Access Instructions: Stay connected with your healthcare team and access your personal medical information anytime with the [facility] Patient Portal. If you would like a full copy of your medical records please contact the [facility] Medical Records Department Saturday through Saturday between 8a.m. and 4:30p.m. Please follow the directions below to access the portal: 1.Access the email account you provided upon registration to the [facility].2.Look for an invitation email from [facility].3.Open the email and access the invitation link: Accept Invitation to [facility]4.Fill in the required jack to create your account. Sign into www.[email or web address] with your username and password that you created in the above steps to stay up to date. You can then view a summary of results, a summary of your visits, and the ability to download your summaries to your computer or send the information securely to a physician. Remember that your healthcare information is confidential, so carefully consider who you will allow to register on the [facility] Patient Portal for access to your information. You can also access the [facility] Patient Portal on the [employer]. Simply click on Health Records under [employer] and then click on the [employer] logo. HOW TO SAFELY DISPOSE OF PRESCRIPTION MEDICATIONS Please use one of the following methods to safely dispose of your unused medications. 1.Use a drug disposal kit: the drug disposal pouch allows you to safely discard your old and unuseddrugs. Ask your nurse to give you one when you are discharged.2.Visit a local take-back location: Many local pharmacies and police departments have programs that collect old and unwanted prescriptiondrugs. Call your local pharmacy or go to http://BrandSh[employer].Win Win Slots/7H5Is8p to find one close to you.3.Make use of household items: Use cat litter or old coffee grounds to dispose medications if other options arenot available. Mix your drugs with these household products, seal them in an airtight container andthrow it into the garbage. Call [facility]: [phone] to be sure your drugs can be disposed of in this way. Some medicines may require a different approach.4.Never flush your medications down the toilet. IF YOU HAVE BEEN PRESCRIBED AN OPIOIDS FOR PAIN If you have been prescribed an opioid (such as hydrocodone, oxycodone or morphine), it is critical to understand the possible side effects and risks of opioid pain medications. Even when taken as directed, opioids can have several side effects including: Tolerance, meaning you might need to take more of a medication for the same pain relief. Nausea, vomiting and/or constipation. Sleepiness, dizziness, dry mouth, confusion, depression or itching. Physical dependence, meaning you have withdrawal symptoms when a medication is stopped ? this can develop within a few days. KNOW YOUR RESPONSIBILITIES It is important to know exactly how much and how often to take the opioid pain medications you are prescribed. Never take opioids in higher amounts or more often than prescribed. Do not combine opioids with alcohol or other drugs that cause drowsiness, such as benzodiazepines, also known as benzos,including diazepam and alprazolam, muscle relaxants or sleep aids. Never sell or share prescriptionopioids. This is illegal. Store opioids in a secure place and out of reach of others (including children, family, friends and visitors). The last page(s) of this document has been signed and retained as a CHART COPY Signatures Patient Education Materials What Is Holter Monitoring? Holter Monitor Palpitations Medication Leaflets My discharge plan and instructions have been reviewed and explained to me and I,COLIN PENN understand my current condition and have read and understand these discharge instructions. I have received a written copy of the plan/instructions. If I have questions, I am aware that I should contact my doctor. 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 There is no consolidation, vascular congestion, pleural effusion, or pneumothorax. There are no acute abnormalities to osseous structures. IMPRESSION: No acute radiographic findings. Interpreted by: Sacha Sellers DO Preliminary Report By: Sacha Sellers DO Electronically signed By Sacha Sellers DO Dictated Date: 06/08/2023 1:38:20 PM Prelim Date: 06/08/2023 1:38:53 PM Sign Date: 06/08/2023 1:38:53 PM Ordering Provider: [facility]08-19-2023 Note Ectopic atrial tachycardia, unifocal Electronic Signature: MD WILNER NICOLE MD 06/08/2023 12:55:07[facility] 08-06-2023 Discharge summary Author Christian Sood [facility] May 26, 2023 3:36am Note Date/Time May 26, 2023 1:3 1am [facility] Medical Records Department [address] [place] [id number] Emergency Department Summary 05/26/23 MR#: [id number] Acct: [id number] Name: COLIN PENN Rep #:[id number] : [id number] 62 From: Christian Sood MD PCP: Dr. Colby Burnett DO Status:REG ER Location: ED HPI History of Present Illness Chief Complaint: Chest Pain Informant: patient Narrative Narrative: Patient presents with palpitations and some chest pressure. Patient's been having problem with palpitations and PVCs for a year or so. He had Holter monitor recently. He is also been on metoprolol. He states metoprolol does not seem to decrease the frequency of his PVCs but it does decrease his exercise tolerance when he takes it. He is generally very active and asymptomatic with the activity. Tonight he noticed his heart rate was goingfast again. He is also had history of nonspecific tachycardia. When he had this he had a small area of pressure in the left upper chest. He states it was not pain but it was pressure. The symptoms occurred about 6-6 and half hours ago now. They are totally resolved. He has had these evaluated before. They have never done a heart catheterization on him. He has never had elevated troponins. He has no family history of cardiovascular disease. His mother did have some dysrhythmias though. He states his cholesterol is consistently below 200. He does take Crestor. He actually does not have a history of high blood pressure. He has had no leg pain or swelling. He is not diabetic. He has never been a smoker [facility] Medical History Asthma Cardiology follow-up encounter DVT (deep venous thrombosis) Gastric reflux GERD (gastroesophageal reflux disease) Hiatal hernia High cholesterol High triglycerides History of blood clots History of DVT (deep vein thrombosis) History of echocardiogram History of Holter monitoring History of stress test Hyperlipidemia Insomnia Migraines Non-smoker Obesity Osteoarthritis Osteoporosis Seasonal allergies Wears glasses Home Medications rosuvastatin 5 mg tablet (Crestor) 5 mg PO QHS 08/25/21 [History Last Taken Unknown] montelukast 10 mg tablet (Singulair) 10 mg PO DAILY PRN allergies 09/27/22 [History Last Taken Unknown] azelastine 205.5 mcg (0.15 %) nasal spray 1 spray intranasal BID PRN allergies 12/19/22 [History Last Taken Unknown] meclizine 25 mg tablet 25 mg PO BID #60 tabs 01/29/23 [Rx Last Taken Unknown] loratadine 10 mg tablet 10 mg PO DAILY 02/14/23 [History Last Taken Unknown] multivitamin with minerals-folic acid 12 mcg chewable tablet (Centrum Adults) 1 tab PO DAILY 02/14/23 [History Last Taken Unknown] famotidine 20 mg tablet 20 mg PO DAILY 03/14/23 [History Last Taken Unknown] metoprolol succinate 50 mg tablet,extended release 24 hr 50 mg PO DAILY #30 tabs05/23/23 [Rx Last Taken Unknown] Allergy/AdvReac Type Severity Reaction Status Date / Time dairy AdvReac Food Uncoded 05/26/23 00:27 Allergy Family History Sister Diabetes Cancer Mother Diabetes Arthritis Heart disease Father Hypertension Arthritis Colon cancer High cholesterol Brother Kidney disease Surgical History H/O arthroscopy of shoulder History of cholecystectomy History of foot surgery Hx of arthroscopy of shoulder right finger cyst excision Social History household members: spouse Smoking Status: Never smoker second hand exposure: No alcohol intake: current substance use type: does not use what type of physical activity do you participate in: walking and other frequency: 3-4 times per week ne/restoration: [employer] seatbelt use: always ROS ROS ED ROS Narrative A complete review of systems was performed and is negative except as documented in the history of present illness. Some specific details below. Constitutional: No recent fevers or chills. EYE: No discharge, visual complaints, or pain. ENT: No difficulty swallowing. No swelling. No pain. No reflux symptoms. CV: See history of present illness. Respiratory: Not short of breath. GI: No abdominal pain. No nausea vomiting diarrhea. No blood in stool. : No frequency dysuria or hematuria. Musculoskeletal: No recent trauma. No pains. No swelling. Skin: No rash. Nondiaphoretic. Neuro: No weakness or numbness. Endocrine: No polyuria or polydipsia. EXAM Physical Exam Narrative Exam Narrative: CONSTITUTIONAL: Patient is nontoxic in appearance. The patient looks comfortable. Work of breathing looks normal. HEENT: No notable trauma. Mucous membranes moist. EYES: No conjunctival injection. No proptosis. NECK:No JVD. No stridor. CARDIOVASCULAR: Regular rate. Regular rhythm. No notable murmur. No JVD. On themonitor, he has a heart rate that runs about 80. He has occasional PVCs. I seeno couplets. He will occasionally have short sinus pauses. Although he can feel most of these, he does not get chest pressure with them. RESPIRATORY: No respiratory distress. Breathing is unlabored. No wheezes. No rhonchi. No rales. No pain with a deep breath. No chest wall tenderness. GASTROINTESTINAL: Not distended. Bowel sounds are normal. No tenderness. No guarding. No rebound. No palpable mass. No bruit is heard. GENITOURINARY: No tenderness over the bladder. No CVA tenderness. MUSCULOSKELETAL: Atraumatic. No peripheral edema. No cord. No tenderness along the deep venous system. No asymmetry. No distended veins. NEUROLOGICAL: Patient is alert and appropriate. No focal deficit noted. SKIN: No noted rashes. No diaphoresis. PSYCHIATRIC: Patient is calm. Mood is appropriate. Const Vital Signs: 05/26/23 00:28 05/26/23 00:31 05/26/23 00:45 Temperature 97.5 F L 97.5 F L Temperature Source Temporal Temporal Pulse Rate 84 81 Respiratory Rate 16 16 Respiratory Effort Blood Pressure 130/82 H 130/82 H Blood Pressure Mean 98 98 Pulse Ox 96 96 Oxygen Delivery Method Room Air Room Air Room Air 05/26/23 00:46 05/26/23 02:26 05/26/23 03:00 Temperature Temperature Source Pulse Rate 67 65 Respiratory Rate 15 18 Respiratory Effort Normal Blood Pressure 112/56 L 115/68 Blood Pressure Mean 74 83 Pulse Ox 94 96 Oxygen Delivery Method MDM MDM MDM Narrative Medical decision making narrative: Patient CBC is overall normal. Patient's electrolytes are normal except his glucose is elevated at 195. He states at home his blood sugar was 89. He was wondering if this might be causing his symptoms so he ate a lot. This may have raised it. He has the ability to watch this at home and can follow-up. Inches troponin is 4. Patient's repeat troponin is 6. Patient has had occasional PVCs PACs and occasional quick short sinus pause or respiratory variation. He has had these for a long time and we have seen a few of these tonight. But he is overall asymptomatic. I think with 2 negative troponins very low, no symptoms and his long history it safe to have him follow-up. Lab Data Attestation: I reviewed the patient's lab results. Labs: Laboratory Results - last 24 hr 05/26/23 05/26/23 00:50 02:50 WBC 6.6 RBC 5.14 Hgb 15.5 Hct 46.6 MCV 90.7 MCH 30.2 MCHC 33.3 RDW Std Deviation 42.3 RDW Coeff of Rei 12.9 Plt Count 194 MPV 9.6 Immature Gran % (Auto) 0.500 Neut % (Auto) 54.7 Lymph % (Auto) 35.1 Navarro % (Auto) 6.8 Eos % (Auto) 2.3 Baso % (Auto) 0.6 Absolute Neuts (auto) 3.6 Absolute Lymphs (auto) 2.32 Nucleated RBC % 0 Sodium 139 Potassium 3.5 Chloride 106 Carbon Dioxide 26.0 Anion Gap 7 BUN 22 H Creatinine 1.08 Estim Creat Clear Calc 73.23 Est GFR (MDRD) Af Amer 89 Est GFR (MDRD) Non-Af 73 BUN/Creatinine Ratio 20.4 H Glucose 195 H Calcium 8.5 Troponin I High Sens 4 6 Radiography Diagnostic Testing: Clinical Impression(s) from Imaging Studies Chest X-Ray 05/26/23 00:50 IMPRESSION: No radiographic evidence of acute cardiopulmonary disease. Electronically Signed: Coco Hoang MD at 1:27 EDT Reading Location ID and State: [facility] / [place] Tel , Service support , EKG Initial EKG: Comments: My independent interpretation the patient's EKG done for chest pressure and palpitation shows a normal sinus rhythm with a rate of 83. No ventricular ectopy on this EKG. No acute ST elevation or depression. SC interval, QRS duration and QTc are all normal. Discharge Plan Triage Chief Complaint: Chest Pain ED Provider: Christian Sood Dx/Rx/DC Orders Clinical Impression: Palpitations, Frequent PVCs, Pressure in chest Instructions: PVCs, ED Chest Pain, Uncertain Cause Prescriptions: No Action azelastine 205.5 mcg (0.15 %) spray,non-aerosol 1 spray INTRANASAL BID PRN (Reason: allergies) montelukast [Singulair] 10 mg tablet 10 mg PO DAILY PRN (Reason: allergies) meclizine 25 mg tablet 25 mg PO BID Qty: 60 5RF rosuvastatin [Crestor] 5 mg Tablet 5 mg PO QHS loratadine 10 mg tablet 10 mg PO DAILY Patient Comments: take 1 tablet by mouth once daily Centrum Adults 12 mcg Tablet,Chewable 1 tab PO DAILY famotidine 20 mg Tablet 20 mg PO DAILY metoprolol succinate 50 mg tablet extended release 24 hr 50 mg PO DAILY Qty: 30 11RF Primary Care Provider: Colby Burnett Referrals: Gene Chao MD [Med Staff - Active Staff] - 3-5 Days Colby Burnett DO [Primary Care Provider] - Disposition Disposition: Home, Self Care What to do if you have Problems For any increased pain, shortness of breath, bleeding, nausea or vomiting, chestpain, or any unexpected problems, contact your Primary Care Provider. Call [facility] ([phone]) or report to the closest Emergency Room. Call 911 if necessary. 05/26/23 0336 <Electronically signed by Christian Sood MD> Cosigner Signature (if applicable): CC: Dr. Colby Burnett DO ~ Signed [facility] Work Phone: [phone] 375-944004-28-2023 Evaluation + Plan noteExtracted from: Title:Clinical Document Author:JUAN DAVID LY Date:02/15/23 [place] ADMISSION HISTORY AN D PHYSICIAL CHIEF COMPLAINT: HISTORY OF PRESENT ILLNESS: REVIEW OF SYSTEMS: ACTIVE PROBLEMS: (17) Acid reflux (946808354) Bradycardia (56588459) Dysphagia (16859025) Dyspnea (011990507) Elevated fasting blood sugar (862679796) Frequent PVCs (024988869) History of COVID-19 (8216730362) History of DVT of lower extremity (4901154776) Hyperlipidemia (42015149) Meniere disease (681989186) Mild asthma (3535402586) Osteoarthritis (2361567415) Palpitations (197950610) Primary insomnia (4159441) Screening for prostate cancer (108775621) Seasonal allergies (4244809978) Weak urinary stream (426301383) MEDICATIONS: Active Inpt Meds: None Active PRN Meds: None One Time Meds: None Active IV Meds: Lactated Ringers Infusion 1,000 mL (LR 1,000 mL) Start: 02/15/23 7:17:00 EDT, Rate: 50 mL/hr, 02/15/23 7:17:00 EDT ALLERGIES: (1) seasonal enviromental FAMILY HISTORY: SOCIAL HISTORY: PHYSICAL EXAM: VITALS: HkosebPsakEDSztlrRYMbU9AJR4AmpcOb(kg) 02/15 07:2536.5--030769--08/28 97.7 24 Hr Tmax: 36.5 at 02/15 07:25 36 Hr Tmax: 36.5 at 02/15 07:25 Vital Signs are the last 5 in the past 48 hours. Weights display the last 5 within 7 days. Initial Wt: 02/15 97.7 kg 215 lb Current Wt: 02/15 97.7 kg 215 lb GENERAL: HEENT: CARDIOVASCULAR: RESPIRATORY: ABDOMEN: EXREMETIES: NEUROLOGICAL: PSYCHIATRIC: LABS: No 36hr Lab Data DIAGNOSTICS: IMPRESSION: PLAN: History and Physical Update I have examined the patient; reviewed the H&P and there are no changes to the H&P unless noted below. Future Appointments Appointment Date:07/03/2023 08:00:00 AM Scheduled Provider:COLBY BURNETT DO Location:[facility] Appointment Type:PC OV Future Scheduled Tests Radiology* XR Esophogram W/Air 01/14/23 [facility] 04-28-2023 Hospital Discharge instructions Patient Education 02/15/2023 09:02:38 Esophageal Dilatation Esophageal Dilatation Esophageal dilatation, also called esophageal dilation, is a procedure to widen or open (dilate) a blocked or narrowed part of the esophagus. The esophagus is the part of the body that moves food andliquid from the mouth to the stomach. You may need this procedure if: You have a buildup of scar tissue in your esophagus that makes it difficult, painful, or impossibleto swallow. This can be caused by gastroesophageal reflux disease (GERD). You have cancer of the esophagus. There is a problem with how food moves through your esophagus. In some cases, you may need this procedure repeated at a later time to dilate the esophagus gradually. Tell a health care provider about: Any allergies you have. All medicines you are taking, including vitamins, herbs, eye drops, creams, and zsgv-zqv-ifvnadd medicines. Any problems you or family members have had with anesthetic medicines. Any blood disorders you have. Any surgeries you have had. Any medical conditions you have. Any antibiotic medicines you are required to take before dental procedures. Whether you are or may be . What are the risks? Generally, this is a safe procedure. However, problems may occur, including: Bleeding due to a tear in the lining of the esophagus. A hole (perforation) in the esophagus. What happens before the procedure? Follow instructions from your health care provider about eating or drinking restrictions. Ask your health care provider about changing or stopping your regular medicines. This is especiallyimportant if you are taking diabetes medicines or blood thinners. Plan to have someone take you home from the hospital or clinic. Plan to have a responsible adult care for you for at least 24 hours after you leave the hospital orclinic. This is important. What happens during the procedure? You may be given a medicine to help you relax (sedative). A numbing medicine may be sprayed into the back of your throat, or you may gargle the medicine. Your health care provider may perform the dilatation using various surgical instruments, such as: ?Simple dilators. This instrument is carefully placed in the esophagus to stretch it. ?Guided wire bougies. This involves using an endoscope to insert a wire into the esophagus. A dilator is passed over this wire to enlarge the esophagus. Then the wire is removed. ?Balloon dilators. An endoscope with a small balloon at the end is inserted into the esophagus. Theballoon is inflated to stretch the esophagus and open it up. The procedure may vary among health care providers and hospitals. What happens after the procedure? Your blood pressure, heart rate, breathing rate, and blood oxygen level will be monitored until themedicines you were given have worn off. Your throat may feel slightly sore and numb. This will improve slowly over time. You will not be allowed to eat or drink until your throat is no longer numb. When you are able to drink, urinate, and sit on the edge of the bed without nausea or dizziness, you may be able to return home. Follow these instructions at home: Take emfg-bip-ystqhot and prescription medicines only as told by your health care provider. Do not drive for 24 hours if you were given a sedative during your procedure. You should have a responsible adult with you for 24 hours after the procedure. Follow instructions from your health care provider about any eating or drinking restrictions. Do not use any products that contain nicotine or tobacco, such as cigarettes and e-cigarettes. If you need help quitting, ask your health care provider. Keep all follow-up visits as told by your health care provider. This is important. Get help right away if you: Have a fever. Have chest pain. Have pain that is not relieved by medication. Have trouble breathing. Have trouble swallowing. Vomit blood. Summary Esophageal dilatation, also called esophageal dilation, is a procedure to widen or open (dilate) a blocked or narrowed part of the esophagus. Plan to have someone take you home from the hospital or clinic. For this procedure, a numbing medicine may be sprayed into the back of your throat, or you may gargle the medicine. Do not drive for 24 hours if you were given a sedative during your procedure. This information is not intended to replace advice given to you by your health care provider. Make sure you discuss any questions you have with your health care provider. Document Released: 11/28/2006 Document Revised: 09/19/2018 Document Reviewed: 08/12/2018 [employer] Patient Education 2020 [employer]. 02/15/2023 09:01:50 Monitored Anesthesia Care, Care After Monitored Anesthesia Care, Care After These instructions provide you with information about caring for yourself after your procedure. Your health care provider may also give you more specific instructions. Your treatment has been plannedaccording to current medical practices, but problems sometimes occur. Call your health care provider if you have any problems or questions after your procedure. What can I expect after the procedure? After your procedure, you may: Feel sleepy for several hours. Feel clumsy and have poor balance for several hours. Feel forgetful about what happened after the procedure. Have poor judgment for several hours. Feel nauseous or vomit. Have a sore throat if you had a breathing tube during the procedure. Follow these instructions at home: For at least 24 hours after the procedure: Have a responsible adult stay with you. It is important to have someone help care for you until youare awake and alert. Rest as needed. Do not: ?Participate in activities in which you could fall or become injured. ?Drive. ?Use heavy machinery. ?Drink alcohol. ?Take sleeping pills or medicines that cause drowsiness. ?Make important decisions or sign legal documents. ?Take care of children on your own. Eating and drinking Follow the diet that is recommended by your health care provider. If you vomit, drink water, juice, or soup when you can drink without vomiting. Make sure you have little or no nausea before eating solid foods. General instructions Take rvvo-vjl-vlooaul and prescription medicines only as told by your health care provider. If you have sleep apnea, surgery and certain medicines can increase your risk for breathing problems. Follow instructions from your health care provider about wearing your sleep device: ?Anytime you are sleeping, including during daytime naps. ?While taking prescription pain medicines, sleeping medicines, or medicines that make you drowsy. If you smoke, do not smoke without supervision. Keep all follow-up visits as told by your health care provider. This is important. Contact a health care provider if: You keep feeling nauseous or you keep vomiting. You feel light-headed. You develop a rash. You have a fever. Get help right away if: You have trouble breathing. Summary For several hours after your procedure, you may feel sleepy and have poor judgment. Have a responsible adult stay with you for at least 24 hours or until you are awake and alert. This information is not intended to replace advice given to you by your health care provider. Make sure you discuss any questions you have with your health care provider. Document Released: 01/27/2017 Document Revised: 01/05/2019 Document Reviewed: 01/27/2017 [employer] Patient Education 2020 [employer]. 02/15/2023 09:01:44 Esophagogastroduodenoscopy, Care After (65148) Esophagogastroduodenoscopy, Care After Refer to this sheet in the next few weeks. These instructions provide you with information about caring for yourself after your procedure. Your health care provider may also give you more specific instructions. Your treatment has been planned according to current medical practices, but problems sometimes occur. Call your health care provider if you have any problems or questions after your procedure. What can I expect after the procedure? After the procedure, it is common to have: A sore throat. Nausea. Bloating. Dizziness. Fatigue. Follow these instructions at home: Do not eat or drink anything until the numbing medicine (local anesthetic) has worn off and your gag reflex has returned. You will know that the local anesthetic has worn off when you can swallow comfortably. Do not drive for 24 hours if you received a medicine to help you relax (sedative). If your health care provider took a tissue sample for testing during the procedure, make sure to get your test results. This is your responsibility. Ask your health care provider or the department performing the test when your results will be ready. Keep all follow-up visits as told by your health care provider. This is important. Contact a health care provider if: You cannot stop coughing. You are not urinating. You are urinating less than usual. Get help right away if: You have trouble swallowing. You cannot eat or drink. You have throat or chest pain that gets worse. You are dizzy or light-headed. You faint. You have nausea or vomiting. You have chills. You have a fever. You have severe abdominal pain. You have black, tarry, or bloody stools. This information is not intended to replace advice given to you by your health care provider. Make sure you discuss any questions you have with your health care provider. Document Released: 09/23/2013 Document Revised: 03/14/2017 Document Reviewed: 08/30/2016 [employer] Interactive Patient Education 2019 [employer]. Follow Up Care 02/01/2023 08:02:41 With:JUAN DAVID LY MD Address: [facility] [address] [address] [phone] When: Unknown Comments:CALL DR LY WITH ANY QUESTIONS OR CONCERNS. THE OFFICE WILL CALL YOU OR MAIL YOU WITH YOUR BIOPSY RESULTS IN 7-10 DAYS. CALL THE OFFICE IF YOU DO NOT GET THESE RESULTS. [facility] 04-28-2023 Anesthesiology Consult note Patient: COLIN PENN Age: 62 years Sex: Male : 1960 Associated Diagnoses: None Author: PAWAN COWAN REC[employer]CILER[employer] OFFICER Assessment Postanesthesia assessment Vitals: Vital signs from flowsheet : Vital Signs 02/15/2023 9:19 EDT Heart Rate Monitored 72 bpm Respiratory Rate 17 br/min Systolic Blood Pressure Non-Invasive 127 mmHg Diastolic Blood Pressure Non-Invasive 82 mmHg 02/15/2023 9:12 EDT Heart Rate Monitored 74 bpm Respiratory Rate 16 br/min Systolic Blood Pressure Non-Invasive 125 mmHg Diastolic Blood Pressure Non-Invasive 82 mmHg 02/15/2023 9:04 EDT Heart Rate Monitored 72 bpm Respiratory Rate 15 br/min Systolic Blood Pressure Non-Invasive 125 mmHg Diastolic Blood Pressure Non-Invasive 83 mmHg 02/15/2023 8:58 EDT Heart Rate Monitored 75 bpm Respiratory Rate 10 br/min Systolic Blood Pressure Non-Invasive 127 mmHg Diastolic Blood Pressure Non-Invasive 82 mmHg 02/15/2023 8:51 EDT Temperature Temporal Artery 36.3 DegC Heart Rate Monitored 77 bpm Respiratory Rate 16 br/min Systolic Blood Pressure Non-Invasive 110 mmHg Diastolic Blood Pressure Non-Invasive 98 mmHg HI 02/15/2023 8:45 EDT Heart Rate Monitored 73 bpm bpm Respiratory Rate - Anes 18 br/min br/min Systolic Blood Pressure Non-Invasive 121 mmHg mmHg Diastolic Blood Pressure Non-Invasive 77 mmHg mmHg 02/15/2023 8:40 EDT Heart Rate Monitored 73 bpm bpm Respiratory Rate - Anes 19 br/min br/min Systolic Blood Pressure Non-Invasive 109 mmHg mmHg Diastolic Blood Pressure Non-Invasive 74 mmHg mmHg 02/15/2023 8:35 EDT Heart Rate Monitored 80 bpm bpm Respiratory Rate - Anes 15 br/min br/min Systolic Blood Pressure Non-Invasive 112 mmHg mmHg Diastolic Blood Pressure Non-Invasive 77 mmHg mmHg 02/15/2023 8:30 EDT Heart Rate Monitored 86 bpm bpm Respiratory Rate - Anes 16 br/min br/min Systolic Blood Pressure Non-Invasive 141 mmHg mmHg Diastolic Blood Pressure Non-Invasive 92 mmHg mmHg 02/15/2023 8:25 EDT Heart Rate Monitored 86 bpm bpm Respiratory Rate - Anes 11 br/min br/min Systolic Blood Pressure Non-Invasive 145 mmHg mmHg Diastolic Blood Pressure Non-Invasive 86 mmHg mmHg 02/15/2023 8:22 EDT Systolic Blood Pressure Non-Invasive 137 mmHg mmHg Diastolic Blood Pressure Non-Invasive 83 mmHg mmHg 02/15/2023 7:25 EDT Temperature Temporal Artery 36.5 DegC Peripheral Pulse Rate 80 bpm Respiratory Rate 12 br/min LOW Systolic Blood Pressure Non-Invasive 128 mmHg Diastolic Blood Pressure Non-Invasive 83 mmHg . Mental status: alert & oriented x 4. Respiratory function: respirations are non-labored. Respiratory support: none. CV function: Normal rate. Cardiovascular support: none. Pain. Nausea status: see nursing documentation of medications. Postoperative hydration status: within normal limits. Digitally Signed by PAWAN COWAN on 02/15/2023 09:36 AM [facility]04-28-2023 Summary of episode note Discharge Instructions Thank you for allowing [facility] to assist you with your healthcare needs. The following is importantdischarge information regarding your hospital visit. Your Care Team COLBY BURNETT DO, DR Your Diagnosis EGD WITH BIOPSY AND DILATION. What to do next Scheduled Follow-Up Appointments Appointment Type When With Where Contact InformationPC OV 07/03/2023 08:00 AM EDT COLBY BURNETT DO [facility] Follow Up Appointments Follow Up with JUAN DAVID LY MD When Why: CALL DR LY WITH ANY QUESTIONS OR CONCERNS. THE OFFICE WILL CALL YOU OR MAIL YOU WITH YOUR BIOPSY RESULTS IN 7-10 DAYS. CALL THE OFFICE IF YOU DO NOT GET THESE RESULTS. Where: [address] [place] [address]- [phone] The Following Activity and Diet Have Been Ordered for You Discharge Activity - Ordered -- NO activity restrictions, 02/15/23 8:48:00 EDT Discharge Diet - Ordered -- Follow the post-operative/post-procedure diet instructions provided by your physician's office.,02/15/23 8:48:00 EDT The Following Equipment Has Been Ordered for You Discharge Home Equipment Discharge Wound Care - Ordered -- Follow the post-operative/post-procedure wound care instructions provided by your physician's office., 02/15/23 8:48:00 EDT Someone Will Contact You Regarding These Home Health Referrals No home referrals have been ordered for you. No one will call you. Allergies seasonal enviromental (typical) Medications Please ask your primary doctor or pharmacist before taking any other medication not listed, including over the counter drugs, herbal medications, vitamins and or supplements as they may interact withyour home medications. What How Much When Why Instructions Last Dose Unchanged loratadine (Claritin) Once a day Unchanged meclizine (meclizine 12.5 mg oral tablet) 1 tab(s) by mouth Three (3) times a day as needed for as needed for dizziness Unchanged montelukast (montelukast 10 mg oral tablet) 1 tab(s) by mouth Once a day Unchanged multivitamin (Multivitamin) 1 tab(s) by mouth Every day Unchanged rosuvastatin (rosuvastatin 5 mg oral tablet) 1 tab(s) by mouth Every day Hyperlipidemia Unchanged traZODone (traZODone 50 mg oral tablet) 1 tab(s) by mouth Daily at bedtime Primary insomnia Please take this list to your next doctor s visit. Bring all medications you take, including over the counter medications, herbals and other supplements with you to your doctor s visit. Patients and families are reminded to discard old lists and to update any records with all medication providers or retail pharmacies. Education Materials Esophageal Dilatation Esophageal dilatation, also called esophageal dilation, is a procedure to widen or open (dilate) a blocked or narrowed part of the esophagus. The esophagus is the part of the body that moves food andliquid from the mouth to the stomach. You may need this procedure if: You have a buildup of scar tissue in your esophagus that makes it difficult, painful, or impossibleto swallow. This can be caused by gastroesophageal reflux disease (GERD). You have cancer of the esophagus. There is a problem with how food moves through your esophagus. In some cases, you may need this procedure repeated at a later time to dilate the esophagus gradually. Tell a health care provider about: Any allergies you have. All medicines you are taking, including vitamins, herbs, eye drops, creams, and crmf-cwz-xeysipl medicines. Any problems you or family members have had with anesthetic medicines. Any blood disorders you have. Any surgeries you have had. Any medical conditions you have. Any antibiotic medicines you are required to take before dental procedures. Whether you are or may be . What are the risks? Generally, this is a safe procedure. However, problems may occur, including: Bleeding due to a tear in the lining of the esophagus. A hole (perforation) in the esophagus. What happens before the procedure? Follow instructions from your health care provider about eating or drinking restrictions. Ask your health care provider about changing or stopping your regular medicines. This is especiallyimportant if you are taking diabetes medicines or blood thinners. Plan to have someone take you home from the hospital or clinic. Plan to have a responsible adult care for you for at least 24 hours after you leave the hospital orclinic. This is important. What happens during the procedure? You may be given a medicine to help you relax (sedative). A numbing medicine may be sprayed into the back of your throat, or you may gargle the medicine. Your health care provider may perform the dilatation using various surgical instruments, such as: ? Simple dilators. This instrument is carefully placed in the esophagus to stretch it. ? Guided wire bougies. This involves using an endoscope to insert a wire into the esophagus. A dilator is passed over this wire to enlarge the esophagus. Then the wire is removed. ? Balloon dilators. An endoscope with a small balloon at the end is inserted into the esophagus. The balloon is inflated to stretch the esophagus and open it up. The procedure may vary among health care providers and hospitals. What happens after the procedure? Your blood pressure, heart rate, breathing rate, and blood oxygen level will be monitored until themedicines you were given have worn off. Your throat may feel slightly sore and numb. This will improve slowly over time. You will not be allowed to eat or drink until your throat is no longer numb. When you are able to drink, urinate, and sit on the edge of the bed without nausea or dizziness, you may be able to return home. Follow these instructions at home: Take bqjj-afk-rpewtav and prescription medicines only as told by your health care provider. Do not drive for 24 hours if you were given a sedative during your procedure. You should have a responsible adult with you for 24 hours after the procedure. Follow instructions from your health care provider about any eating or drinking restrictions. Do not use any products that contain nicotine or tobacco, such as cigarettes and e-cigarettes. If you need help quitting, ask your health care provider. Keep all follow-up visits as told by your health care provider. This is important. Get help right away if you: Have a fever. Have chest pain. Have pain that is not relieved by medication. Have trouble breathing. Have trouble swallowing. Vomit blood. Summary Esophageal dilatation, also called esophageal dilation, is a procedure to widen or open (dilate) a blocked or narrowed part of the esophagus. Plan to have someone take you home from the hospital or clinic. For this procedure, a numbing medicine may be sprayed into the back of your throat, or you may gargle the medicine. Do not drive for 24 hours if you were given a sedative during your procedure. This information is not intended to replace advice given to you by your health care provider. Make sure you discuss any questions you have with your health care provider. Document Released: 11/28/2006 Document Revised: 09/19/2018 Document Reviewed: 08/12/2018 [employer] Patient Education 2020 [employer] Monitored Anesthesia Care, Care After These instructions provide you with information about caring for yourself after your procedure. Your health care provider may also give you more specific instructions. Your treatment has been plannedaccording to current medical practices, but problems sometimes occur. Call your health care provider if you have any problems or questions after your procedure. What can I expect after the procedure? After your procedure, you may: Feel sleepy for several hours. Feel clumsy and have poor balance for several hours. Feel forgetful about what happened after the procedure. Have poor judgment for several hours. Feel nauseous or vomit. Have a sore throat if you had a breathing tube during the procedure. Follow these instructions at home: For at least 24 hours after the procedure: Have a responsible adult stay with you. It is important to have someone help care for you until youare awake and alert. Rest as needed. Do not: ? Participate in activities in which you could fall or become injured. ? Drive. ? Use heavy machinery. ? Drink alcohol. ? Take sleeping pills or medicines that cause drowsiness. ? Make important decisions or sign legal documents. ? Take care of children on your own. Eating and drinking Follow the diet that is recommended by your health care provider. If you vomit, drink water, juice, or soup when you can drink without vomiting. Make sure you have little or no nausea before eating solid foods. General instructions Take hhuk-noc-zafkclw and prescription medicines only as told by your health care provider. If you have sleep apnea, surgery and certain medicines can increase your risk for breathing problems. Follow instructions from your health care provider about wearing your sleep device: ? Anytime you are sleeping, including during daytime naps. ? While taking prescription pain medicines, sleeping medicines, or medicines that make you drowsy. If you smoke, do not smoke without supervision. Keep all follow-up visits as told by your health care provider. This is important. Contact a health care provider if: You keep feeling nauseous or you keep vomiting. You feel light-headed. You develop a rash. You have a fever. Get help right away if: You have trouble breathing. Summary For several hours after your procedure, you may feel sleepy and have poor judgment. Have a responsible adult stay with you for at least 24 hours or until you are awake and alert. This information is not intended to replace advice given to you by your health care provider. Make sure you discuss any questions you have with your health care provider. Document Released: 01/27/2017 Document Revised: 01/05/2019 Document Reviewed: 01/27/2017 [employer] Patient Education 2020 [employer] Esophagogastroduodenoscopy, Care After Refer to this sheet in the next few weeks. These instructions provide you with information about caring for yourself after your procedure. Your health care provider may also give you more specific instructions. Your treatment has been planned according to current medical practices, but problems sometimes occur. Call your health care provider if you have any problems or questions after your procedure. What can I expect after the procedure? After the procedure, it is common to have: A sore throat. Nausea. Bloating. Dizziness. Fatigue. Follow these instructions at home: Do not eat or drink anything until the numbing medicine (local anesthetic) has worn off and your gag reflex has returned. You will know that the local anesthetic has worn off when you can swallow comfortably. Do not drive for 24 hours if you received a medicine to help you relax (sedative). If your health care provider took a tissue sample for testing during the procedure, make sure to get your test results. This is your responsibility. Ask your health care provider or the department performing the test when your results will be ready. Keep all follow-up visits as told by your health care provider. This is important. Contact a health care provider if: You cannot stop coughing. You are not urinating. You are urinating less than usual. Get help right away if: You have trouble swallowing. You cannot eat or drink. You have throat or chest pain that gets worse. You are dizzy or light-headed. You faint. You have nausea or vomiting. You have chills. You have a fever. You have severe abdominal pain. You have black, tarry, or bloody stools. This information is not intended to replace advice given to you by your health care provider. Make sure you discuss any questions you have with your health care provider. Document Released: 09/23/2013 Document Revised: 03/14/2017 Document Reviewed: 08/30/2016 [employer] Interactive Patient Education 2019 [employer] Additional Information VACCINATE! IT SAVES LIVES! Members of the community who have not yet received the COVID-19 vaccine and would like to receive it can visit one of [facility] vaccine clinics. There are many vaccine clinic locations within the [facility]. For locations and available times, please visit https://gettheshot.coronavirus.[place].gov/. It is important to note that some COVID mobile vaccine clinics are held outdoors and may be canceled in rainy or stormy conditions. To learn more about pediatric vaccinations (ages 5-11), we invite you to visit the [facility] webpage. https://www.[facility].org/pages/3755-Yxrdj-Ajmhcdryioz-Otyixqlbyi-Dfkuf-Jos stions.htmlTo learn more about the COVID-19 vaccine, we invite you to visit the CDC website for a list of frequently asked questions. https://www.cdc.gov/coronavirus/2019-ncov/vaccines/faq.html [facility] Patient Portal Access Instructions: Stay connected with your healthcare team and access your personal medical information anytime with the [facility] Patient Portal.If you would like a full copy of your medical records, please contact the [facility] Medical Records Department, Saturday through Saturday between 8a.m. and 4:30p.m. Please follow the directions below to access the portal: 1.Access the email account you provided upon registration to [facility].2.Look for an invitation email from [facility].3.Open the email and access the invitation link: Accept Invitation to [facility].Fill in the required jack to create your account. Sign into [email or web address] with your username and password that you created in the above steps to stay up to date. You can then view a summary of results, a summary of your visits, and the ability to download your summaries to your computer or send the information securely to a physician. Remember that your healthcare information is confidential, so carefully consider who you will allow to register on the [facility] Patient Portal for access to your information. You can also access the [facility] Patient Portal on the [employer] milena. Simply click on Health Records under HealthData and then click on the [employer] logo. HOW TO SAFELY DISPOSE OF PRESCRIPTION MEDICATIONS Please use one of the following methods to safely dispose of your unused medications. 1.Use a drug disposal kit: the drug disposal pouch allows you to safely discard your old and unuseddrugs. Ask your nurse to give you one when you are discharged.2.Visit a local take-back location: Many local pharmacies and police departments have programs that collect old and unwanted prescriptiondrugs. Call your local pharmacy or go to http://BrandShield.Win Win Slots/6G5Zo4d to find one close to you.3.Make use of household items: Use cat litter or old coffee grounds to dispose medications if other options arenot available. Mix your drugs with these household products, seal them in an airtight container andthrow it into the garbage. Call [facility]: [phone] to be sure your drugs can be disposed of in this way. Some medicines may require a different approach.4.Never flush your medications down the toilet. IF YOU HAVE BEEN PRESCRIBED AN OPIOID FOR PAIN If you have been prescribed an opioid (such as hydrocodone, oxycodone or morphine), it is critical to understand the possible side effects and risks of opioid pain medications. Even when taken as directed, opioids can have several side effects including: Tolerance, meaning you might need to take more of a medication for the same pain relief. Nausea, vomiting and/or constipation. Sleepiness, dizziness, dry mouth, confusion, depression or itching. Physical dependence, meaning you have withdrawal symptoms when a medication is stopped, can develop within a few days. KNOW YOUR RESPONSIBILITIES It is important to know exactly how much and how often to take the opioid pain medications you are prescribed. Never take opioids in higher amounts or more often than prescribed. Do not combine opioids with alcohol or other drugs that cause drowsiness, such as benzodiazepines, also known as benzos, including diazepam and alprazolam, muscle relaxants or sleep aids. Never sell or share prescription opioids. This is illegal. Store opioids in a secure place and out of reach of others (including children, family, friends and visitors). The last page of this document has been signed and retained as a CHART COPY. Signatures Patient Education Materials Esophageal Dilatation Monitored Anesthesia Care, Care After Esophagogastroduodenoscopy, Care After (37060) Medication Leaflets My discharge plan and instructions have been reviewed and explained to me and IFILI RICHARD R understand my current condition and have read and understand these discharge instructions. I have received a written copy of the plan/instructions. If I have questions, I am aware that I should contact my doctor. 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 Signature: Date/Time: Relationship to Patient: Witness Name/Signature: Date/Time: [facility]04-28-2023 Anesthesiology Consult note Patient: COLIN PENN Age: 62 years Sex: Male : 1960 Associated Diagnoses: None Author: PAWAN COWAN Assessment Postanesthesia assessment Vitals: Vital signs from flowsheet : Vital Signs 02/15/2023 8:35 EDT Heart Rate Monitored 80 bpm bpm Respiratory Rate - Anes 15 br/min br/min 02/15/2023 8:30 EDT Heart Rate Monitored 86 bpm bpm Respiratory Rate - Anes 16 br/min br/min Systolic Blood Pressure Non-Invasive 141 mmHg mmHg Diastolic Blood Pressure Non-Invasive 92 mmHg mmHg 02/15/2023 8:25 EDT Heart Rate Monitored 86 bpm bpm Respiratory Rate - Anes 11 br/min br/min Systolic Blood Pressure Non-Invasive 145 mmHg mmHg Diastolic Blood Pressure Non-Invasive 86 mmHg mmHg 02/15/2023 8:22 EDT Systolic Blood Pressure Non-Invasive 137 mmHg mmHg Diastolic Blood Pressure Non-Invasive 83 mmHg mmHg 02/15/2023 7:25 EDT Temperature Temporal Artery 36.5 DegC Peripheral Pulse Rate 80 bpm Respiratory Rate 12 br/min LOW Systolic Blood Pressure Non-Invasive 128 mmHg Diastolic Blood Pressure Non-Invasive 83 mmHg . Mental status: alert & oriented x 4. Respiratory support: none. CV function: Normal rate. Cardiovascular support: none. Pain. Nausea status: see nursing documentation of medications. Postoperative hydration status: within normal limits. Digitally Signed by PAWAN COWAN on 02/15/2023 08:45 AM [facility]04-28-2023 Note [place] ADMISSION HISTORY AND PHYSICIAL CHIEF COMPLAINT: HISTORY OF PRESENT ILLNESS: REVIEW OF SYSTEMS: ACTIVE PROBLEMS: (17) Acid reflux (595664921) Bradycardia (16723401) Dysphagia (93769263) Dyspnea (379263878) Elevated fasting blood sugar (188236507) Frequent PVCs (289378476) History of COVID-19 (1065603908) History of DVT of lower extremity (9458615049) Hyperlipidemia (60595490) Meniere disease (862409371) Mild asthma (4203996420) Osteoarthritis (1473425890) Palpitations (369239639) Primary insomnia (3372053) Screening for prostate cancer (707019039) Seasonal allergies (0526187948) Weak urinary stream (431119391) MEDICATIONS: Active Inpt Meds: None Active PRN Meds: None One Time Meds: None Active IV Meds: Lactated Ringers Infusion 1,000 mL (LR 1,000 mL) Start: 02/15/23 7:17:00 EDT, Rate: 50 mL/hr, 02/15/23 7:17:00 EDT ALLERGIES: (1) seasonal enviromental FAMILY HISTORY: SOCIAL HISTORY: PHYSICAL EXAM: VITALS: SrjkxcVhxlMRFhcmaWFEzQ0HDS9NofzIk(kg) 02/15 07:2536.5--894090--86/28 97.7 24 Hr Tmax: 36.5 at 02/15 07:25 36 Hr Tmax: 36.5 at 02/15 07:25 Vital Signs are the last 5 in the past 48 hours. Weights display the last 5 within 7 days. Initial Wt: 02/15 97.7 kg 215 lb Current Wt: 02/15 97.7 kg 215 lb GENERAL: HEENT: CARDIOVASCULAR: RESPIRATORY: ABDOMEN: EXREMETIES: NEUROLOGICAL: PSYCHIATRIC: LABS: No 36hr Lab Data DIAGNOSTICS: IMPRESSION: PLAN: History and Physical Update I have examined the patient; reviewed the H&P and there are no changes to the H&P unless noted below. Digitally Signed by JUAN DAVID LY MD on 02/15/2023 08:29 AM [facility]04-28-2023 Anesthesiology Consult note Patient: COLIN PENN Age: 62 years Sex: Male : 1960 Associated Diagnoses: None Author: PAWAN COWAN APRN-PROBATION AND PAROLE OFFICER Preoperative Information Time of last food or liquid consumption: 02/14/2023 21:00:00 Anesthesia history Patient's history: negative. Family's history: negative. Review of Systems Ear/Nose/Mouth/Throat: Negative except as documented in history of present illness. Respiratory: Negative except as documented in history of present illness. Cardiovascular: Negative except as documented in history of present illness. Gastrointestinal: Negative except as documented in history of present illness. Genitourinary: Negative except as documented in history of present illness. Endocrine: Negative except as documented in history of present illness. Musculoskeletal: Negative except as documented in history of present illness. Integumentary: Negative except as documented in history of present illness. Neurologic: Negative except as documented in history of present illness. Health Status Allergies: Allergic Reactions (Selected) Severity Not Documented Seasonal enviromental- Typical., Allergies (1) ActiveReaction seasonal enviromentaltypical Current medications: (Selected) Inpatient Medications Ordered LR 1,000 mL: 50 mL/hr, Intravenous Prescriptions Prescribed meclizine 12.5 mg oral tablet: 12.5 mg, 1 tab(s), Oral, TID, PRN: as needed for dizziness, 60 tab(s), 2 Refill(s) montelukast 10 mg oral tablet: 10 mg, 1 tab(s), Oral, qDay, 90 tab(s), 3 Refill(s) rosuvastatin 5 mg oral tablet: 5 mg, 1 tab(s), Oral, Daily, 90 tab(s), 3 Refill(s) traZODone 50 mg oral tablet: 50 mg, 1 tab(s), Oral, qHS, 90 tab(s), 0 Refill(s) Documented Medications Documented Claritin: qDay, 0 Refill(s) Multivitamin: 1 tab(s), Oral, Daily, 0 Refill(s), Medications (1) Active Scheduled: (0) Continuous: (1) Lactated Ringers 1,000 mL 1,000 mL, Intravenous, 50 mL/hr PRN: (0) Problem list: Medical Bradycardia / SNOMED CT 44625127 / Confirmed Dysphagia / SNOMED CT 95096316 / Confirmed Dyspnea / SNOMED CT 231787816 / Confirmed History of DVT of lower extremity / SNOMED CT 3479590897 / Confirmed History of COVID-19 / SNOMED CT 1296922314 / Confirmed Elevated fasting blood sugar / SNOMED CT 424206104 / Confirmed Hyperlipidemia / SNOMED CT 85319954 / Confirmed Mild asthma / SNOMED CT 7527369517 / Confirmed Frequent PVCs / SNOMED CT 446261263 / Confirmed Meniere disease / SNOMED CT 416827091 / Confirmed Palpitations / SNOMED CT 573397757 / Confirmed Screening for prostate cancer / SNOMED CT 412746921 / Confirmed Weak urinary stream / SNOMED CT 000895660 / Confirmed Primary insomnia / SNOMED CT 9349616 / Confirmed, Active Problems (17) Acid reflux Bradycardia Dysphagia Dyspnea Elevated fasting blood sugar Frequent PVCs History of COVID-19 History of DVT of lower extremity Hyperlipidemia Meniere disease Mild asthma Osteoarthritis Palpitations Primary insomnia Screening for prostate cancer Seasonal allergies Weak urinary stream Histories Past Medical History: Resolved Depression (90008659): Resolved. Knee pain (78606644): Resolved. Temporal pain (13688963): Resolved. Dry eyes (911322306): Resolved. Disorder of sternoclavicular joint (9807902004): Resolved. Lumbar strain (085002809): Resolved. Elevated glucose (662307937): Resolved. Dysfunction of left eustachian tube (27369775): Resolved. Acute vestibular neuronitis (124419126): Resolved. DVT of lower limb, acute (2944295919): Resolved. Rib pain on left side (675520759): Resolved. Grief reaction (208763273): Resolved. Family History: Hypertension Father Gallbladder disease Mother Sister Arrhythmia Mother Procedure history: Gallbladder (40056151) on 04/15/2019 at 58 Years. Excision of ganglion cyst of finger (0293171799) in 2018 at 58 Years. Rotator cuff repair (909343803) in 2014 at 55 Years. Comments: 04/21/2019 9:03 MARIKA Arreguin rigth shoulder Rotator cuff repair (474852883) in 2002 at 43 Years. Comments: 04/21/2019 9:03 MARIKA Arreguin left shoulder Vasectomy (50453440) in 1997 at 38 Years. Tonsillectomy (483779673). Foot (17763945). 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 Physical Examination No qualifying data available Measurements from flowsheet : Measurements 02/15/2023 7:25 EDT Height 177.8 cm Admission Weight 97.7 kg Weight Method Stated [place] Body Weight 73.00 kg Airway: Mallampati classification: II (soft palate, fauces, uvula visible). Head: Normocephalic. Dentition Evaluation: Intact, Own teeth. Neck: Full range of motion. Respiratory: Lungs are clear to auscultation. Cardiovascular: Normal rate. Heart Sounds: Normal. Gastrointestinal: Soft. Musculoskeletal Normal range of motion. Integumentary: Intact, Warm, Dry. Neurologic: Alert, Oriented. Review / Management Results review: No qualifying data available , Lab results 02/15/2023 7:30 EDT SN - Proc - Anesthesia Type MAC SN - Proc - EBL 0 mL SN - Proc - Actual Procedure ESOPHAGOGASTRODUODENOSCOPY WITH POSSIBLE DILATION 02/15/2023 7:29 EDT SN - PP - Body Position Lateral Right Side-up Standard Intra-op 02/15/2023 7:28 EDT SN - GCD - Post-operative Diagnosis DYSPHAGIA SN - GCD - Case Level OPD Level 3 02/15/2023 7:27 EDT SN - Cul - Culture Type No Specimen per Surgeon SN - Cul - Kind Specimen 02/15/2023 7:26 EDT SN - CAt - Case Attendee SN - CAt - Case Attendee SN - CAt - Case Attendee SN - CAt - Case Attendee SN - CAt - Case Attendee SN - CAt - Case Attendee SN - CAt - Case Attendee SN - CAt - Case Attendee SN - CAt - Role Performed Primary Surgeon SN - CAt - Role Performed Grain Grader 1 SN - CAt - Role Performed Hotel Services Sales Representative 02/15/2023 7:25 EDT Designated Person #1 We May Share PHI ADRIANE ANTONIETTA [phone] Designated Person #1 Relationship Other: LIFE [employer]NER Privacy Restrictions Requested None Height 177.8 cm Admission Weight 97.7 kg Weight Method Stated [place] Body Weight 73.00 kg Status N/A Sensory Deficits None Sleep Apnea Snore No Sleep Apnea Tired No Sleep Apnea Obstruction No Sleep Apnea Pressure No Sleep Apnea BMI No Sleep Apnea Age Yes Sleep Apnea Neck No Sleep Apnea Gender Yes Sleep Apnea Score 2 High Risk for Sleep Apnea No Diagnosed With Sleep Apnea No Advanced Directives Unable to obtain Infectious Disease Symptoms Patient states no symptoms Infectious Disease Recent Exposure No Alcohol and Drug Use No Employee of Institutional Living No Health Care Employee No History of Exposure to TB No History of Positive Chest X-Ray for TB No History of Positive TB Skin Test No Homeless No Known Immunosuppression No Recent Immigrant No Resident of Institutional Living No Bloody Sputum No Fatigue No Fever No Loss of Appetite No Night Sweats No Persistent Cough > 3 Weeks No Weight Loss No Safety Brochure Information Reviewed Unable to complete [facility] Video Viewed No Barriers to Learning None evident Teaching Method Explanation Teaching Evaluation No further teaching needed Preferred Written Language [place] Preferred Spoken Language [place] Information Given by Patient Patient's Current Physicians Dr Chao Discharge To, Anticipated Home with family care Prev Test Positive/Diagnosis w/COVID-19 Yes Previous COVID-19 Positive Date Previous COVID-19 Positive Date Current Quarantine/Isolated any Illness No Any Contact with Sick Animals/Birds No Traveled Anywhere in Last 30 Days No Lost Weight Unintentionally Recently No Eat Poorly Due to Decreased Appetite No Total MST Score 0 N/A Personal Devices, Patient Valuables None Anesthesia/Transfusions Prior anesthesia Admission Note-Nursing Same Day Patient History 02/14/2023 7:52 EDT Primary Care Phone Message FW: (no subject) - XDM/1.0/DDM (Modified) 02/14/2023 0:00 EDT ER Report Scanned ER Report Scanned XR Chest Scanned XR Chest Scanned . Assessment and Plan [place] [employer] Anesthesiologists (ASA) physical status classification: Class II. Anesthetic Preoperative Plan Premedication: intravenous. Anesthetic technique: MAC. Induction: intravenously. Maintenance airway: Mask. Postoperative pain management: Per surgeon. Risks discussed: nausea, vomiting, headache, sore throat, dental injury, hypotension, allergic reaction, serious complications. Informed consent: signed by patient. Digitally Signed by PAWAN COWANPROBATION AND PAROLE OFFICER on 02/15/2023 07:38 AM Digitally Signed by PAWAN COWANPROBATION AND PAROLE OFFICER on 02/15/2023 07:38 AM [facility] note Author Janusz Lara [facility] Note Date/Time July 14, 2025 5:21pm [facility] Medical Records Department [address] [place] [address] Counseling Note - Pharmacy 07/14/251623 MR#: [id number] Acct: [id number] Name: COLIN PENN Rep #:[id number] : 1960 65 From: Janusz nuno PCP: Dr. Wily Carlton, DO Status:ADM DANIE Y Location: [place] [address] Pharmacy MD Med Reconciliation Pharmacy Service has performed discharge medication reconciliation for this patient. The patient's discharge medication list was reviewed for discrepancies and discrepancies were resolved. Medications at Discharge Home Medications montelukast 10 mg tablet (Singulair) 10 mg PO DAILY PRN allergies 09/27/22 azelastine 205.5 mcg (0.15 %) nasal spray 1 spray intranasal BID PRN allergies 12/19/22 loratadine 10 mg tablet 10 mg PO DAILY PRN allergies 02/14/23 multivitamin with minerals-folic acid 12 mcg chewable tablet (Centrum Adults) 1 tab PO MOWEFR supplement 02/14/23 famotidine 20 mg tablet 20 mg PO DAILY PRN gerd 03/14/23 aspirin 81 mg tablet 81 mg PO QDAY 05/24/25 clopidogrel 75 mg tablet 75 mg PO QDAY 05/24/25 ezetimibe 10 mg tablet 10 mg PO QHS 05/24/25 meclizine 25 mg tablet 12.5 mg (1/2 x 25 mg) PO BID PRN dizziness #30 tabs 05/24/25 rosuvastatin 20 mg tablet 20 mg PO QDAY 05/24/25 07/14/25 1624 <Electronically signed by Janusz Coughlin> Date _ Janusz Lara Cosigner Signature (if applicable): Date CC: ~ Signed [facility] Work Phone: Discharge summary Author Ger Jason [facility] Note Date/Time July 14, 2025 5:21pm [facility] Medical Records Department [address] [place] [address] Emergency Department Summary 07/14/25 MR#: [id number] Acct: [id number] Name: COLIN PENN Rep #:[id number] : 1960 65 From: Ger Zhu PCP: Dr. Wily Carlton, DO Status:DIS DANIE Location: [address] History of Present Illness Chief Complaint: Neuro S/Sx Informant: patient Onset/Context/Timing Onset: Today Context: Sudden Onset Timing: Continuous Quality and Location: Positive for Left Arm Parasthesia and - (Visual disturbance) Onset: 0650 today (approximately 45 minutes prior to arrival) Worsened by: Nothing Relieved by: Nothing Associated Symptoms Associated Symptoms: Positive for Headache; Negative for Nausea, Vomiting or Chest Pain Narrative Narrative: Patient presents with visual disturbance that began approximately 45 minutes prior to arrival. Patient states he saw flashes of colors in the peripheral vision. Patient states that later he started feeling some heaviness in his leftarm. Patient admits to some paresthesias in his left arm. Patient denies any weakness. Patient denies any slurred speech. Patient admits to a mild headache. Patient denies any chest pain. Patient denies any nausea or vomitingat this time. Patient states he gets intermittent nausea from his M?ni?re's disease. [facility] Medical History Hiatal hernia Osteoporosis DVT (deep venous thrombosis) Migraines Osteoarthritis High triglycerides History of blood clots Seasonal allergies History of DVT (deep vein thrombosis) Wears glasses High cholesterol Gastric reflux Non-smoker Cardiology follow-up encounter History of Holter monitoring History of echocardiogram History of stress test Asthma Hyperlipidemia GERD (gastroesophageal reflux disease) Insomnia Obesity Home Medications ?Medication ?Instructions ?Recorded ?Last Taken ?Type montelukast 10 mg tablet 10 mg PO DAILY PRN allergies 09/27/22 Unknown History (Singulair) azelastine 205.5 mcg (0.15 %) 1 spray intranasal BID P RN 12/19/22 Unknown History nasal spray allergies loratadine 10 mg tablet 10 mg PO DAILY PRN allergies 02/14/23 Unknown History multivitamin with minerals-folic 1 tab PO MOWEFR suppl ement 02/14/23 07/12/25 History acid 12 mcg chewable tablet (Centrum Adults) famotidine 20 mg tablet 20 mg PO DAILY PRN gerd 02/1907/11/25 History aspirin 81 mg tablet 81 mg PO QDAY 05/24/2507/13 History clopidogrel 75 mg tablet 75 mg PO QDAY 05/24/2507/13 History ezetimibe 10 mg tablet 10 mg PO QHS 05/24/25 History meclizine 25 mg tablet 12.5 mg (1/2 x 25 mg) PO BID PRN 05/24/25 Unknown Rx dizziness #30 tabs rosuvastatin 20 mg tablet 20 mg PO QDAY 05/24/2507/13 History Allergy/AdvReac Type Severity Reaction Status Date / Time Milk Containing Products Allergy throat Verified 07/14/25 07:47 (Dairy) tightens escitalopram (From Lexapro) AdvReac suicidal Verified 07/14/25 07:47 ideation Family History (Updated 07/14/25 @ 11:[address] Ger Kimbrough DO) Sister Diabetes Cancer Mother Diabetes Arthritis Heart disease Father Hypertension Arthritis Colon cancer High cholesterol CVA (cerebral vascular accident) Brother Kidney disease Surgical History H/O heart artery stent History of foot surgery Hx of arthroscopy of shoulder History of cholecystectomy right finger cyst excision H/O arthroscopy of shoulder Social History household members: spouse Smoking Status: Never smoker second hand exposure: No alcohol intake: current substance use type: does not use what type of physical activity do you participate in: walking and other frequency: 3-4 times per week ne/restoration: [employer] seatbelt use: always ROS ROS ED Constitutional Constitutional ED: Denies chills or fever(s) Eyes Eyes: Reports change in vision; Denies blurry vision ENT ENT ED: Denies rhinorrhea or sore throat Cardiovascular Cardiovascular: Denies chest pain or palpitations Respiratory/Chest Respiratory/Chest: Denies cough or dyspnea Gastrointestinal Gastrointestinal: Denies nausea or vomiting Genitourinary Genitourinary ED: Denies dysuria or hematuria Musculoskeletal Musculoskeletal: Denies back pain or neck pain Integumentary Denies abscess or rash Neurologic Neurologic: Reports headache(s) and paresthesias LUE; Denies weakness Allergic/Immunologic Allergic/Immunologic ED: Denies mouth swelling or urticaria EXAM Physical Exam Const Vital Signs: 07/14/25 07:42 07/14/25 07:46 07/14/25 07:54 Temperature 98.2 F 98.2 F Temperature Source Oral Oral Pulse Rate 99 78 Respiratory Rate 18 18 Blood Pressure 155/78 H 155/78 H Blood Pressure Mean 103 103 Pulse Ox 100 100 Oxygen Delivery Method Room Air Room Air Room Air 07/14/25 07:54 07/14/25 08:24 07/14/25 08:30 Temperature 98.2 F Temperature Source Oral Pulse Rate 78 99 94 Respiratory Rate 18 14 13 Blood Pressure 155/78 H 152/92 H 142/84 H Blood Pressure Mean 103 112 103 Pulse Ox 100 98 97 Oxygen Delivery Method Room Air Room Air Room Air 07/14/25 09:00 07/14/25 09:30 07/14/25 10:00 Temperature Temperature Source Pulse Rate 86 80 88 Respiratory Rate 16 12 Blood Pressure 136/81 H 125/81 H 125/81 H Blood Pressure Mean 99 95 95 Pulse Ox 97 Oxygen Delivery Method Positive well nourished and well developed Constitutional Narrative: BMI is 31.5. General Appearance ED: well developed and NAD HEENT Reports moist mucous membranes Eyes PERRL and EOMs intact bilaterally Eyes Narrative: Funduscopic examination was benign bilaterally. Neck supple and no JVD Resp normal respiratory effort and clear to auscultation bilaterally Cardio Rate: regular rate Rhythm: regular rhythm GI soft to palpation, non-tender and non-distended Extremity normal to inspection General Extremety ED: Negative for edema or tenderness General Extremity: Negative for edema Neuro oriented x3 and CN's II-XII intact bilaterally Neuro Narrative: There is decreased sensation to light touch in the left forearm. Sensation was intact to light touch in the upper arms and lower extremities bilaterally. Shanita Coma Scale: document GCS findings Spontaneous Obeys Commands Oriented 15 Sensorium / Orientation: alert Motor Exam: strength 5/5 throughout Psych mental status grossly normal MDM MDM MDM Narrative Medical decision making narrative: Stroke team was activated in triage. Patient was evaluated there. Stroke orderset was used. CT scan of the brain will be obtained to assess for intracranial bleeding and stroke. CTA of the head and neck will be obtained to assess for large vessel occlusion and carotid and vertebral stenosis. Chest x-ray will be obtained to assess for pneumonia or bronchitis. EKG will be obtained to assess for cardiac dysrhythmia and cardiac ischemia. CBC will be obtained to assess for leukocytosis and anemia. Basic metabolic profile will be obtained to assessfor electrolyte abnormality and renal function. PT with INR and PTT will be obtained to assess for coagulopathy. High-sensitivity troponin will be obtainedto assess for cardiac ischemia. 2-hour repeat high-sensitivity troponin will beobtained to assess for ongoing cardiac ischemia. Lab Data Attestation: I reviewed the patient's lab results. Lab results narrative: CBC was reviewed and was within normal limits. PTT was reviewed and was slightly elevated at 172. Basic metabolic profile was reviewed. Glucose was elevated at 188. The remainder is within normal limits. Initial high-sensitivity troponin was reviewed and was less than 6. PT with INR and PTT werereviewed and were within normal limits. 2-hour repeat high-sensitivity troponinwas reviewed and was 6. Labs: Laboratory Results - last 24 hr 07/14/25 07/14/25 07/14/25 07:50 08:00 10:05 WBC 4.8 RBC 4.75 Hgb 13.8 Hct 41.8 MCV 88.0 MCH 29.1 MCHC 33.0 RDW Std Deviation 44.5 H RDW Coeff of Rei 13.9 Plt Count 187 MPV 9.2 Immature Gran % (Auto) 0.600 Neut % (Auto) 43.1 L Lymph % (Auto) 44.4 H Navarro % (Auto) 7.2 Eos % (Auto) 3.6 Baso % (Auto) 1.1 H Absolute Neuts (auto) 2.1 Absolute Lymphs (auto) 2.11 Nucleated RBC % 0 PT 12.9 INR 1.0 APTT 23.7 L Sodium 139 Potassium 3.8 Chloride 104 Carbon Dioxide 23.5 Anion Gap 12 BUN 16 Creatinine 0.93 Estim Creat Clear Calc 147.36 Est GFR (MDRD) Non-Af 92 BUN/Creatinine Ratio 17.4 Glucose 188 H Calcium 8.6 Troponin T High Sens < 6 Troponin T Hi Sens 2 Hr 6 POC Glucose 172 H Radiography Chest X-Ray - ED: 1 View, Read by ED Physician, Read by Radiologist and No AcuteDisease Diagnostic Testing: Clinical Impression(s) from Imaging Studies Brain CT 07/14/25 07:54 IMPRESSION: Bilateral ethmoid sinus disease is noted. Mucosal thickening is visible in the right aspect of the sphenoid sinus. No acute intracranial pathology. Reading Location: [facility] Chest X-Ray 07/14/25 07:55 IMPRESSION: No acute process is identified in the chest. Reading Location: [facility] Head/Neck CTA 07/14/25 07:55 IMPRESSION: There is heavily calcified plaque is noted in the intracranial portion of the right and left ICA in the carotid siphon, which partly obscures the lumen with no evidence of occlusion. Reading Location: [facility] CT scan of the brain was obtained. There is no acute intracranial abnormality. There is bilateral ethmoid sinus disease noted. There is mucosal thickening in the right aspect of the sphenoid sinus. This was interpreted by the radiologistand was also independently reviewed by myself. CTA of the head and neck was obtained. There are calcified plaques in the intracranial portion of the right and left internal carotid arteries but there is no evidence of occlusion. This was interpreted by the radiologist and was also independently reviewed by myself. Portable 1 view chest x-ray was obtained. On my independent interpretation, lung jack are clear. There is normal cardiac silhouette. Bony thorax is normal. There is no acute process noted. Radiologist also interpreted the x-ray and agrees. EKG Initial EKG: Attestation: I personally reviewed and interpreted this EKG as follows: Interpretation: Sinus Rhythm (88) and No Acute Injury Pattern Comments: EKG was obtained. On my independent interpretation, it showed anormal sinus rhythm with a rate of 88. SC interval, QRS interval, and QTc intervals were all normal. Chancellor was normal. There are no acute ST or T wave changes. Prior EKG tracings: available for review Prior: Unchanged (03/26/2025) Management Discussion w/another healthcare provider: Hospitalist and Tinner Helper (Dr. De Luna, stroke neurologist [facility]) Treatment and Re-Evaluation Narrative: Patient was evaluated by stroke neurology [facility]. Patient is not a candidate for tenecteplase due to the low NIH stroke scale score. Stroke neurologist recommended further evaluation with MRI. Case was discussed with the hospitalist. Discharge Plan Dx/Rx/DC Orders Clinical Impression: Arm paresthesia, left, Visual disturbance, Hyperglycemia Disposition Disposition: Acute Care Hospital [facility] Discharge Date/Time: 07/14/25 11:40 NIHSS NIHSS 1a. Level of Consciousness: 0 - Alert; keenly responsive 1b. LOC Questions: 0 - Answers BOTH questions correctly 1c. LOC Commands: 0 - Performs BOTH tasks correctly 2. Best Gaze: 0 - Normal 4. Facial Palsy: 0 - Normal symmetrical movements 5a. Left Arm: 0 - No drift; arm holds 90 (or 45) degrees for full 10 seconds 5b. Right Arm: 0 - No drift; arm holds 90 (or 45) degrees for full 10 seconds 6a. Left Le - No drift; leg holds 30-degree position for full 5 seconds 6b. Right Le - No drift; leg holds 30-degree position for full 5 seconds 8. Sensory: 1 - Ndnh-fg-[id number] sensory loss; 9. Best Language: 0 - No aphasia; normal 10. Dysarthria: 0 - Normal 11. Extinction and Inattention: 0 - No abnormality Total: 1 Stroke Questions Stroke Team Activated: Yes Reviewed Inclusion/Exclusion criteria: Yes IV Thrombolytic Administered: No No contraindications from thrombolytic administration: No What to do if you have Problems For any increased pain, shortness of breath, bleeding, nausea or vomiting, chestpain, or any unexpected problems, contact your Primary Care Provider. Call [facility] ([phone]) or report to the closest Emergency Room. Call 911 if necessary. 07/14/25 1744 <Electronically signed by Ger Jason DO> Cosigner Signature (if applicable): CC: Dr. Wily Carlton, ~ Signed [facility] Work Phone: Discharge summary Author Ger Kimbrough [facility] Note Date/Time July 14, 2025 4:28pm [facility] Medical Records Department [address] [place] [address] Discharge Summary 07/14/25 1611 MR#: [id number] Acct: [id number] Name: COLIN PENN Rep #:[id number] : 1960 65 From: Ger Kimbrough DO PCP: Dr. Wily Carlton DO Status:ADM DANIE [facility] Prov[facility] Date of Admission: 07/14/25 Primary Care Physician: Dr. Wily Carlton DO Consultations 07/14/25 11:56 Consult: Tele-Neurology Routine Consulting Provider: [facility] Reason for Consult: Acute Ischemic Stroke/TIA EMERGENT Consult: No MD Notified: Yes Date Notified: 07/14/25 Time Notified: 11:08 Method of Notification: ED Physician Initiated Nursing Unit Staff Notify [facility] of Tele-Neurology Consult: Yes Reason For Visit: LEFT SIDED PARATHESIAS Diagnosis Discharge Diagnosis (1) Paresthesias: Status: Acute Code(s): R20.2 - Paresthesia of skin Plan: Resolvied. Began the lout but now bilateral about sensation is grossly intact. Concern is for stroke or atypical migraine though the patient is not having any headache. MRI of the brain was negative. Patient had some visual disturbances that would sound like scotoma of a migraine but patient did not have a headache. Though hedoes have a history of migraines. 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 (2) Visual disturbance: Status: Acute Code(s): H53.9 - Unspecified visual disturbance Plan: Unclear etiology. Sounded like he was having scotoma for migraine but he did not have any headache. So that does not rule out migraine. Patient does have ahistory of migraines that actually went away when he had COVID. (3) Dysconjugate gaze: Status: Acute Code(s): H51.8 - Other specified disorders of binocular movement Plan: Patient has been complaining of symptoms that has been diagnosed with M?ni?re's disease but he does have disconjugate gaze with lateral eye tracking. Is unclear if this is what is causing his symptoms but I told the patient that may be something to consider patching one of his eyes to see if that helps when he is getting up about. Will stay with the MRI shows to be a shows any evidence of any stroke but if he is continuing to have the symptoms it may be advisable for him to follow-up withophthalmology. From a sounds like and his eye exams he has done well but with this, disconjugate gaze trigger if it is more of a chronic and causing him symptoms it is unclear if he would benefit from going to a tertiary facility formyotomy procedures. Recommended patient patch 1 eye when he is at home to see if that would help some of his symptoms he just feeling unbalanced. Plan M?ni?re's disease: Follow-up with neurology. VTE prophylaxis: Low risk observation status. Not indicated. CODE STATUS: Addressed with the patient. Patient wishes to be full code. Medications at Discharge Home Medications montelukast 10 mg tablet (Singulair) 10 mg PO DAILY PRN allergies 09/27/22 azelastine 205.5 mcg (0.15 %) nasal spray 1 spray intranasal BID PRN allergies 12/19/22 loratadine 10 mg tablet 10 mg PO DAILY PRN allergies 02/14/23 multivitamin with minerals-folic acid 12 mcg chewable tablet (Centrum Adults) 1 tab PO MOWEFR supplement 02/14/23 famotidine 20 mg tablet 20 mg PO DAILY PRN gerd 03/14/23 aspirin 81 mg tablet 81 mg PO QDAY 05/24/25 clopidogrel 75 mg tablet 75 mg PO QDAY 05/24/25 ezetimibe 10 mg tablet 10 mg PO QHS 05/24/25 meclizine 25 mg tablet 12.5 mg (1/2 x 25 mg) PO BID PRN dizziness #30 tabs 05/24/25 rosuvastatin 20 mg tablet 20 mg PO QDAY 05/24/25 Hospital Course Operations None Procedures 2-D Echocardiogram Summary of Care Provided Minutes Spent on Discharge: 60 Hospital Course: This is a 65-year-old male who presents with paresthesias initially in his left upper extremity and then both upper extremities. Had no weakness. He underwenta stroke workup with a head CT CTA of the head neck and MRI of the brain that were negative. On exam, was noted that he had a disconjugate gaze with tracking. He was able to move his eyes up bilaterally but when tracking, his eyes were disconjugate. Unclear if this is an acute issue or chronic. Patient has noted feeling off for about a year which he is seeing neurology and has beendiagnosed with M?ni?re's disease. Is unclear if this is chronic and that he hasadapted to it because he does not have diplopia. I recommend that he follow-up with his childhood development teacher here and to see if he would need referral to tertiary facility to see if this is a ocular muscle issue or even a cranial nerve issue. Additionally with that, recommend he follow-up with his neurologist see if he would need referral to a more specialized neurologist for evaluation if he has some cranial nerve issues. Weight / BMI Weight Weight: 99.5 kg Body Mass Index (BMI) 31.4 ABG / Lab / Microbiology Data 07/14/25 08:00 07/14/25 08:00 Laboratory: Laboratory Results - last 24 hr 07/14/25 07:50: POC Glucose 172 H 07/14/25 08:00: WBC 4.8, RBC 4.75, Hgb 13.8, Hct 41.8, MCV 88.0, MCH 29.1, MCHC 33.0, RDW Std Deviation 44.5 H, RDW Coeff of Rei 13.9, Plt Count 187, MPV 9.2, Immature Gran % (Auto) 0.600, Neut % (Auto) 43.1 L, Lymph % (Auto) 44.4 H, Navarro % (Auto) 7.2, Eos % (Auto) 3.6, Baso % (Auto) 1.1 H, Absolute Neuts (auto) 2.1, Absolute Lymphs (auto) 2.11, Nucleated RBC % 0, PT 12.9, INR 1.0, APTT 23.7 L, Sodium 139, Potassium 3.8, Chloride 104, Carbon Dioxide 23.5, Anion Gap 12, BUN 16, Creatinine 0.93, Estim Creat Clear Calc 147.36, Est GFR (MDRD) Non-Af 92, BUN/Creatinine Ratio 17.4, Glucose 188 H, Calcium 8.6, Troponin T High Sens < 6 07/14/25 10:05: Troponin T Hi Sens 2 Hr 6 07/14/25 12:48: Troponin T Hi Sens 4Hr < 6 Radiography Diagnostic Testing: Radiology Impression Brain CT 07/14/25 07:54 IMPRESSION: Bilateral ethmoid sinus disease is noted. Mucosal thickening is visible in the right aspect of the sphenoid sinus. No acute intracranial pathology. Reading Location: [facility] Chest X-Ray 07/14/25 07:55 IMPRESSION: No acute process is identified in the chest. Reading Location: [facility] Head/Neck CTA 07/14/25 07:55 IMPRESSION: There is heavily calcified plaque is noted in the intracranial portion of the right and left ICA in the carotid siphon, which partly obscures the lumen with no evidence of occlusion. Reading Location: [facility] Brain MRI 07/14/25 11:10 IMPRESSION: Negative MR of the brain. Negative for acute intracranial pathology. Diffuse paranasal sinus disease Reading Location: [place] [address] Echocardiogram 07/14/25 11:56 Interpretation Summary The left ventricular ejection fraction is 65 %. No evidence for diastolic dysfunction. Bubble contrast study is negative for PFO/ASD. Mild focal calcification of the aortic valve leaflets. Aortic valve sclerosis without stenosis. Trivial aortic valve regurgitation. Ordering Physician: Ger Kimbrough Referring Physician: Wily Carlton Performed By: Raegan Santos, MAYNOR, RVT D/C Instructions DC O2, CPAP, BIPAP Needs Home O2 Discharge instructions: No Meaningful Use Info Meaningful Use Meaningful Use Diagnoses (Choose all that apply): None applicable Discharge Plan Admission Admit Date/Time: 07/14/25 11:05 Primary Reason for Your Visit: Paresthesias Attending Provider: Ger Kimbrough Primary Care Provider: Wily Carlton Consulting Providers: Angelito Trinidad; Valeriy Kirk; Susana Mireles; Betzaida Lee; Jemma Wilson; Miles De Luna; Hanna Taylor; Ramesh Chacon; Luis Manuel Amezquita; Alex Olmedo; Ramonita Arguello; Khushboo Etienne; Clifton London; Zelda Carranza; Chele Montalvo; Abad Hackett; Christian Boateng; Dorinda Stockton; Rodolfo Urrutia; Emma Ramos; Babatunde Caceres Instructions Additional Instructions / Restrictions: As we discussed, you had these visual changes and then this numbness in your armwhich your workup here was negative for any stroke. Suspect it may be a an atypical migraine though he did not have a headache. If this happens again, notify your physician or return to the emergency room. As we discussed also, your vision when you track to the sides is disconjugate (out of sync) and is unclear if this is because your symptoms are just feeling off but I do recommendthat you try wearing a patch during the day when you are at home on 1 eye to seeif that helps. Tried changing and is well from eye to eye from 1 day to the next to see if you have any benefits from that. If after several days you have not noticed any changes, then you can stop patching. You do not need the patch if you go out to the house for anything. Please follow-up with your neurologistas well as your childhood development teacher to see if they have any additional input or if they feel that you may need referrals elsewhere. Discharge Orders/Prescriptions Prescriptions: Continued azelastine 205.5 mcg (0.15 %) spray,non-aerosol 1 spray INTRANASAL BID PRN (Reason: allergies) montelukast [Singulair] 10 mg tablet 10 mg PO DAILY PRN (Reason: allergies) rosuvastatin 20 mg tablet 20 mg PO QDAY aspirin 81 mg tablet 81 mg PO QDAY clopidogrel 75 mg tablet 75 mg PO QDAY ezetimibe 10 mg tablet 10 mg PO QHS meclizine 25 mg tablet 12.5 mg PO BID PRN (Reason: dizziness) Qty: 30 4RF loratadine 10 mg tablet 10 mg PO DAILY PRN (Reason: allergies) Patient Comments: take 1 tablet by mouth once daily Centrum Adults 12 mcg Tablet,Chewable 1 tab PO MOWEFR famotidine 20 mg Tablet 20 mg PO DAILY PRN (Reason: gerd) Discontinued modafinil 100 mg tablet 100 mg PO BID Referrals / Follow Up: [facility] [Provider Group] - Within 1 Month Rc Estes MD [Non-Staff -Ordering Privileges, Neurology] - 08/23/25 2:00 pm Wily Carlton DO [Primary Care Provider, Medical] - Within 2 Weeks Disposition Disposition (needs filled in before D/C Order can be placed): Home, Self Care 07/14/25 6745 <Electronically signed by Ger Kimbrough DO> Cosigner Signature (if applicable): CC: Dr. Ger Kimbrough DO; Dr. Wily Carlton DO~ Signed [facility] Work Phone: Evaluation + Plan note Future Appointments Appointment Date:09/17/2022 01:00:00 PM Scheduled Provider:COLBY BURNETT DO Location:[facility] Appointment Type:PC OV Appointment Date:01/02/2023 11:00:00 AM Scheduled Provider:COLBY BURNETT DO Location:[employer] [facility] Appointment Type:PC OV Follow Up [facility] Evaluation + Plan note Future Appointments Appointment Date:01/02/2023 11:00:00 AM Scheduled Provider:COLBY BURNETT DO Location:[facility] [employer] Appointment Type:PC OV Follow Up [facility] Evaluation + Plan note Future Appointments Appointment Date:06/10/2023 09:00:00 AM Scheduled Provider: Location:[facility] Appointment Type:CV Procedure - AOH Echo Appointment Date:07/03/2023 10:15:00 AM Scheduled Provider: Location:[facility] Appointment Type:CV OV Appointment Date:09/04/2023 10:30:00 AM Scheduled Provider:COLBY BURNETT DO Location:[employer] Appointment Type:PC OV Future Scheduled Tests Radiology* XR Esophogram W/Air 01/14/23 [facility] Evaluation + Plan note Future Appointments Appointment Date:07/03/2023 10:15:00 AM Scheduled Provider: Location:[facility] Appointment Type:CV OV Appointment Date:09/04/2023 10:30:00 AM Scheduled Provider:COLBY BURNETT DO Location:[facility] Appointment Type:PC OV Future Scheduled Tests Radiology* XR Esophogram W/Air 01/14/23 [facility] Evaluation + Plan note Future Appointments Appointment Date:09/04/2023 10:30:00 AM Scheduled Provider:COLBY BURNETT DO Location:[employer] [facility] [place] Appointment Type:PC OV Appointment Date:10/04/2023 09:45:00 AM Scheduled Provider: Location: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 Appointment Date:03/04/2024 09:00:00 AM Scheduled Provider:COLBY BURNETT DO Location:[employer] Appointment Type:PC OV Future Scheduled Tests Radiology* XR Esophogram W/Air 01/14/23 [facility] Evaluation + Plan note Future Appointments Appointment Date:01/21/2024 10:30:00 AM Scheduled Provider: Location:[facility] Appointment Type:*CT Coronary Angiography w+w/o Contrast Appointment Date:03/04/2024 09:00:00 AM Scheduled Provider:COLBY BURNETT DO Location:[employer] [employer] Appointment Type:PC OV Appointment Date:06/15/2024 02:00:00 PM Scheduled Provider:COLBY BURNETT DO Location:[facility] Appointment Type:PC OV Follow Up Diagnostic Tests Pending * Antinuclear Antibody Screen, Serum 01/16/24 * Rheumatoid Factor 01/16/24 Future Scheduled Tests Laboratory* Prostate Specific Antigen 10/08/23 * A1C Hemoglobin 10/08/23 * Lipid Profile 10/08/23 * Complete Metabolic Panel 10/08/23 Radiology* CT Coronary Angiography w+w/o Contrast 01/21/24 [facility] evaluation + Plan note Future Appointments Appointment Date:03/04/2024 09:00:00 AM Scheduled Provider:COLBY BURNETT DO Location:[facility] Appointment Type:PC OV Appointment Date:06/15/2024 02:00:00 PM Scheduled Provider:COLBY BURNETT DO Location:[facility] Appointment Type:PC OV Follow Up Future Scheduled Tests Laboratory* Prostate Specific Antigen 10/08/23 * A1C Hemoglobin 10/08/23 * Lipid Profile 10/08/23 * Complete Metabolic Panel 10/08/23 [facility] Evaluation + Plan note Future Appointments Appointment Date:02/21/2024 07:00:00 AM Scheduled Provider: Location:Heart Lab Appointment Type:CV Procedure - Heart Lab/Hybrid OR Appointment Date:03/04/2024 09:00:00 AM Scheduled Provider:COLBY BURNETT DO Location:[employer] [employer] Appointment Type:PC OV Appointment Date:06/15/2024 02:00:00 PM Scheduled Provider:COLBY BURNETT DO Location:[employer] [place] Appointment Type:PC OV Follow Up Future Scheduled Tests Laboratory* Basic Metabolic Panel 02/13/24 * Complete Blood Count 02/13/24 * Prothrombin Time - Panel 02/13/24 [facility] T[employer]cast[employer]uation + Plan note Future Appointments Appointment Date:03/04/2024 09:00:00 AM Scheduled Provider:COLBY BURNETT DO Location:[facility] [employer] Appointment Type:PC OV Appointment Date:03/19/2024 10:00:00 AM Scheduled Provider:SHAYLEE PAYTON Location:[facility] Appointment Type:CV OV Hospital Follow Up Appointment Date:06/15/2024 02:00:00 PM Scheduled Provider:COLBY BURNETT DO Location:[employer] Appointment Type:PC OV Follow Up Diagnostic Tests Pending * Complete Blood Count 02/21/24 [facility] T[employer]cast[facility]uation + Plan note Future Appointments Appointment Date:06/15/2024 02:00:00 PM Scheduled Provider:COLBY BURNETT DO Location:[facility] Appointment Type:PC OV Follow Up Future Scheduled Tests Laboratory* Basic Metabolic Panel 03/02/24 * Complete Blood Count 03/02/24 [facility] [employer]uation + Plan note Future Appointments Appointment Date:07/12/2025 02:00:00 PM Scheduled Provider:WILY CARLTON DO Location:[facility] Appointment Type:PC OV Future Scheduled Tests Laboratory* Basic Metabolic Panel 03/02/24 * Complete Blood Count 03/02/24 [facility] [employer]uation + Plan note Future Appointments Appointment Date:07/12/2025 02:00:00 PM Scheduled Provider:WILY CARLTON DO Location:[facility] Appointment Type:PC OV [facility] T[employer]uation + Plan note Future Appointments Appointment Date:07/12/2025 02:00:00 PM Scheduled Provider:WILY CARLTON DO Location:[facility] Appointment Type:PC OV Diagnostic Tests Pending * Allergens (9) Nuts 03/05/25 [facility] [employer]uation + Plan note Future Appointments Appointment Date:07/15/2025 09:00:00 AM Scheduled Provider:AURELIA SAMUEL Location:[facility] Appointment Type:CV OV Appointment Date:08/27/2025 10:30:00 AM Scheduled Provider:WILY CARLTON DO Location:[facility] Appointment Type:PC Wellness Annual [facility] [employer]uation + Plan note Future Appointments Appointment Date:07/22/2025 11:15:00 AM Scheduled Provider:SHAYLEE PAYTON Location:[facility] Appointment Type:CV OV Appointment Date:08/06/2025 09:15:00 AM Scheduled Provider:WILY CARLTON DO Location:[facility] Appointment Type:PC OV Appointment Date:08/27/2025 10:30:00 AM Scheduled Provider:WILY CARLTON DO Location:[facility] Appointment Type: Wellness Annual Diagnostic Tests Pending * Lyme Disease Serology w/Reflex 07/19/25 [facility] evaluation noteNo assessment information available [facility] Work Phone: evaluation note* Diagnosis Onset Date Resolution Status Anxiety acute Unspecified abnormalities of gait and mobility acute Dysequilibrium chronic Fatigue chronic Lightheadedness chronic [facility] Work Phone: evaluation note* Diagnosis Onset Date Resolution Status Anxiety acute Unspecified abnormalities of gait and mobility acute Dysequilibrium chronic Fatigue chronic Lightheadedness chronic Elevated blood pressure reading acute Nonsustained ventricular tachycardia acute Palpitations acute Hyperlipidemia [facility] Work Phone: Evaluation note* Diagnosis Onset Date Resolution Status Elevated blood pressure reading acute Nonsustained ventricular tachycardia acute Palpitations acute Hyperlipidemia chronic M ni re's disease chronic Peripheral vestibulopathy ch [facility] Work Phone: evaluation note* Diagnosis Onset Date Resolution Status Elevated blood pressure reading acute Nonsustained ventricular tachycardia acute Palpitations acute Hyperlipidemia chronic M ni re's disease chronic Peripheral vestibulopathy ch ronic LUQ abdominal pain acute [facility] Work Phone: Evaluation note* Diagnosis Onset Date Resolution Status M ni re's disease chronic Peripheral vestibulopathy ch ronic LUQ abdominal pain acute [facility] Work Phone: History and physical note Author Ger Kimbrough [facility] Note Date/Time July 14, 2025 11:53am [facility] Medical Records Department [address] [place] [address] H&P Exam - Hospitalist 07/14/25 1142 MR#: [id number] Acct: [id number] Name: COLIN PENN Rep #:[id number] : 1960 65 From: Ger Kimbrough DO PCP: Dr. Wily Carlton, DO Status:ADM DANIE [facility] - General General Date of Admission: 07/14/25 Date of Service: 07/14/25 Chief Complaint: paresthesia. HPI Narrative COLIN PENN, is a 65 M who presents LUE paresthesia. When he got up today he had noticed visual changes and he was unclear if it was in 1 eye or both eyesbut resolved just spark pattern that led to a more of a generalized spreading light across his visual field. There was no zigzags or lightning bolts. He didnot experience any headaches but that afterwards he experienced left-sided paresthesias. Patient has a M?ni?re's disease and notes that he just feels off and has had this since 2019 when he had COVID at that time. Presented emergencyroom and underwent a workup that was unremarkable. Symptoms are improving though he does complain of paresthesias in both arms at this time but no weakness in his arms. [facility] Medical History Hiatal hernia Osteoporosis DVT (deep venous thrombosis) Migraines Osteoarthritis High triglycerides History of blood clots Seasonal allergies History of DVT (deep vein thrombosis) Wears glasses High cholesterol Gastric reflux Non-smoker Cardiology follow-up encounter History of Holter monitoring History of echocardiogram History of stress test Asthma Hyperlipidemia GERD (gastroesophageal reflux disease) Insomnia Obesity Home Medications ?Medication ?Instructions ?Recorded ?Last Taken ?Type montelukast 10 mg tablet 10 mg PO DAILY PRN allergies 09/27/22 Unknown History (Singulair) azelastine 205.5 mcg (0.15 %) 1 spray intranasal BID P RN 12/19/22 Unknown History nasal spray allergies loratadine 10 mg tablet 10 mg PO DAILY 02/14/23 Unkn own History multivitamin with minerals-folic 1 tab PO DAILY Unknown History acid 12 mcg chewable tablet (Centrum Adults) famotidine 20 mg tablet 20 mg PO DAILY 03/14/23 Unkn own History aspirin 81 mg tablet 81 mg PO QDAY 05/24/25 Unkno wn History clopidogrel 75 mg tablet 75 mg PO QDAY 05/24/25 Unkno wn History ezetimibe 10 mg tablet 10 mg PO QDAY 05/24/25 Unkno wn History meclizine 25 mg tablet 12.5 mg (1/2 x 25 mg) PO BID PRN 08/04/25 Unknown Rx dizziness #30 tabs rosuvastatin 20 mg tablet 20 mg PO QDAY 05/24/25 Unkno wn History modafinil 100 mg tablet 100 mg PO BID 07/14/25 Unkno wn History Allergy/AdvReac Type Severity Reaction Status Date / Time Milk Containing Products Allergy throat Verified 07/14/25 07:47 (Dairy) tightens escitalopram (From Lexapro) AdvReac suicidal Verified 07/14/25 07:47 ideation Family History (Updated 07/14/25 @ 11:[address] Ger Kimbrough DO) Sister Diabetes Cancer Mother Diabetes Arthritis Heart disease Father Hypertension Arthritis Colon cancer High cholesterol CVA (cerebral vascular accident) Brother Kidney disease Surgical History H/O heart artery stent History of foot surgery Hx of arthroscopy of shoulder History of cholecystectomy right finger cyst excision H/O arthroscopy of shoulder Social History household members: spouse Smoking Status: Never smoker second hand exposure: No alcohol intake: current substance use type: does not use what type of physical activity do you participate in: walking and other frequency: 3-4 times per week ne/restoration: [employer] seatbelt use: always ROS ROS Narrative All review of systems were negative except as mentioned above in the history of present illness and the other review of systems. Vital Signs Vital Signs Vital Signs: 07/14/25 07:42 07/14/25 07:46 07/14/25 07:54 Temperature 36.8 C 36.8 C Temperature Source Oral Oral Pulse Rate 99 78 Respiratory Rate 18 18 Blood Pressure 155/78 H 155/78 H Blood Pressure Mean 103 103 Pulse Ox 100 100 Oxygen Delivery Method Room Air Room Air Room Air 07/14/25 07:54 07/14/25 08:24 07/14/25 08:30 Temperature 36.8 C Temperature Source Oral Pulse Rate 78 99 94 Respiratory Rate 18 14 13 Blood Pressure 155/78 H 152/92 H 142/84 H Blood Pressure Mean 103 112 103 Pulse Ox 100 98 97 Oxygen Delivery Method Room Air Room Air Room Air 07/14/25 09:00 07/14/25 09:30 07/14/25 10:00 Temperature Temperature Source Pulse Rate 86 80 88 Respiratory Rate 16 12 Blood Pressure 136/81 H 125/81 H 125/81 H Blood Pressure Mean 99 95 95 Pulse Ox 97 Oxygen Delivery Method 07/14/25 11:30 07/14/25 11:35 Temperature 36.6 C Temperature Source Pulse Rate 81 74 Respiratory Rate 16 Blood Pressure 142/79 H 142/91 H Blood Pressure Mean 100 108 Pulse Ox 100 Oxygen Delivery Method Weight Weight: 219.4 kg Body Mass Index (BMI) 69.4 Physical Exam Const alert, no apparent distress and average body habitus HEENT normocephalic, head/scalp atraumatic, hearing grossly normal bilaterally, moist oral mucous membranes, oropharynx normal and dentition normal Eyes PERRL Eyes Narrative: Bilateral nystagmus. With tracking, his eyes do become disconjugate with lateral gaze. Resp normal respiratory effort and no retractions GI normal to inspection, nondistended, normoactive bowel sounds and soft to palpation Extremity normal to inspection and full ROM Neuro oriented x3, CN's II-XII intact bilaterally, moves all extremities and no focal motor deficits Sensorium / Orientation: awake and alert Coordination / Balance: [id number] test normal and [id number]-[id number] test normal Speech: speech normal Motor Exam: strength 5/5 throughout Psych affect normal Results Lab / Micro Data 07/14/25 08:00 07/14/25 08:00 Labs: Laboratory Results - last 24 hr 07/14/25 07:50: POC Glucose 172 H 07/14/25 08:00: WBC 4.8, RBC 4.75, Hgb 13.8, Hct 41.8, MCV 88.0, MCH 29.1, MCHC 33.0, RDW Std Deviation 44.5 H, RDW Coeff of Rei 13.9, Plt Count 187, MPV 9.2, Immature Gran % (Auto) 0.600, Neut % (Auto) 43.1 L, Lymph % (Auto) 44.4 H, Navarro % (Auto) 7.2, Eos % (Auto) 3.6, Baso % (Auto) 1.1 H, Absolute Neuts (auto) 2.1, Absolute Lymphs (auto) 2.11, Nucleated RBC % 0, PT 12.9, INR 1.0, APTT 23.7 L, Sodium 139, Potassium 3.8, Chloride 104, Carbon Dioxide 23.5, Anion Gap 12, BUN 16, Creatinine 0.93, Estim Creat Clear Calc 147.36, Est GFR (MDRD) Non-Af 92, BUN/Creatinine Ratio 17.4, Glucose 188 H, Calcium 8.6, Troponin T High Sens < 6 07/14/25 10:05: Troponin T Hi Sens 2 Hr 6 Imaging Radiology Impression Brain CT 07/14/25 07:54 IMPRESSION: Bilateral ethmoid sinus disease is noted. Mucosal thickening is visible in the right aspect of the sphenoid sinus. No acute intracranial pathology. Reading Location: [facility] Chest X-Ray 07/14/25 07:55 IMPRESSION: No acute process is identified in the chest. Reading Location: [facility] Head/Neck CTA 07/14/25 07:55 IMPRESSION: There is heavily calcified plaque is noted in the intracranial portion of the right and left ICA in the carotid siphon, which partly obscures the lumen with no evidence of occlusion. Reading Location: [facility] Assessment & Plan Assessment/Plan (1) Paresthesias: PLAN: Resolving. Began the lout but now bilateral about sensation is grossly intact. Concern is for stroke or atypical migraine though the patient is not having any headache. Check MRI of the brain, echocardiogram. (2) Visual disturbance: PLAN: Unclear etiology. Sounded like he was having scotoma for migraine but he did not have any headache. So that does not rule out migraine. Patient does have a history of migraines that actually went away when he had COVID. (3) Dysconjugate gaze: PLAN: Patient has been complaining of symptoms that has been diagnosed with M?ni?re's disease but he does have disconjugate gaze with lateral eye tracking. Is unclear if this is what is causing his symptoms but I told the patient that may be something to consider patching one of his eyes to see if that helps when he is getting up about. Will stay with the MRI shows to be a shows any evidence of any stroke but if he is continuing to have the symptoms it may be advisable for him to follow-up withophthalmology. From a sounds like and his eye exams he has done well but with this, disconjugate gaze trigger if it is more of a chronic and causing him symptoms it is unclear if he would benefit from going to a tertiary facility formyotomy procedures. PLAN: Plan M?ni?re's disease: Follow-up with neurology. VTE prophylaxis: Low risk observation status. Not indicated. CODE STATUS: Addressed with the patient. Patient wishes to be full code. Charges/Coding Visit Charges Inpatient E&M: 64035 Init Hosp L3 07/14/25 115 <Electronically signed by Ger Kimbrough DO> Cosigner Signature (if applicable): CC: Dr. Ger Kimbrough, DO; Dr. Wily Carlton, DO~ Signed [facility] Work Phone: Hospital course Narrative No data available for this section [facility] Hospital Discharge instructions No data available for this section [facility] Hospital Discharge instructions Additional Instructions Your work-up did not show any signs of cardiac event or neurologic dysfunction or signs of kidney damage or electrolyte derangement. Your symptoms are most likely related to your underlying M ni re's disease. Please follow-up with your family doctor for repeat evaluation and return to the ER should you have any further [facility] Work [facility]: Hospital Discharge instructions Additional Instructions Please follow-up as indicated.[facility] Work Phone: Hospital Discharge instructions Additional Instructions Your blood work did not show any acute findings here today and your chest x-ray did not either. Return with worsening symptoms or any concerns. 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 Suspect it may be a an atypical migraine though he did not have a headache. If this happens again, notify your physician or return to the emergency room. As we discussed also, your vision when you track to the sides is disconjugate (out of sync) and is unclear if this is because your symptoms are just feeling off but I do recommend that you try wearing a patch during the day when you are at home on 1 eye to see if that helps. Tried changing and is well from eye to eye from 1 day to the next to see if you have any benefits from that. If after several days you have not noticed any changes, then you can stop patching. You do not need the patch if you go out to the house for anything. 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 to see if they have any additional input or if they feel that you may need referrals elsewhere.[facility] Work Phone: Progress note No data available for this section [facility] Reason for referral (narrative)No reason for referral information availableWBlanchard [facility] Work Phone: Summary note* CAITLYN Rocha: PERFORM Event Display: Patient Summary Documents Authored Date: [facility] Chief Complaint and Reason for Visit Chief Complaint S/P RT PLANTAR PLATE REPAIR/RX HERE PAIN LOWER RIGHT LEG LEFT HEARING LOSS AT [facility] Chief Complaint LEFT HEARING LOSS AT [facility] TINNITUS RIGHT EAR Chief Complaint TINNITUS RIGHT EAR E ORDERS CHEST PAIN Chief Complaint TINNITUS RIGHT EAR E ORDERS CHEST PAIN PALPITATIONS Chief Complaint TINNITUS RIGHT EAR E ORDERS CHEST PAIN PALPITATIONS TINNITUS, DIZZINESS EORDER DIZZINESS GIDINESS Reason for Visit Anxiety Unspecified abnormalities of gait and mobility Dysequilibrium Fatigue Lightheadedness Chief Complaint E ORDERS CHEST PAIN PALPITATIONS TINNITUS, DIZZINESS EORDER DIZZINESS GIDINESS Unspecified abnormalities of gait and mobility Reason for Visit Anxiety Unspecified abnormalities of gait and mobility Dysequilibrium Fatigue Lightheadedness Chief Complaint E ORDERS CHEST PAIN PALPITATIONS TINNITUS, DIZZINESS EORDER DIZZINESS GIDINESS Unspecified abnormalities of gait and mobility WEAKNESS DIZZINESS Reason for Visit Anxiety Unspecified abnormalities of gait and mobility Dysequilibrium Fatigue Lightheadedness Chief Complaint TINNITUS, DIZZINESS EORDER DIZZINESS GIDINESS Unspecified abnormalities of gait and mobility WEAKNESS 30 DAY MONITOR DIZZINESS F/U, LAST SEEN 12/2020 ACID REFLUX Reason for Visit Anxiety Unspecified abnormalities of gait and mobility Dysequilibrium Fatigue Lightheadedness Elevated blood pressure reading Nonsustained ventricular tachycardia Palpitations Hyperlipidemia Chief Complaint DIZZINESS GIDINESS Unspecified abnormalities of gait and mobility WEAKNESS 30 DAY MONITOR DIZZINESS F/U, LAST SEEN 12/2020 ACID REFLUX 4 M FU E-ORDER Reason for Visit Elevated blood press ure reading Nonsustained ventricular tachycardia Palpitations Hyperlipidemia M ni re's disease Peripheral vestibulopathy Chief Complaint Unspecified abnormal ities of gait and mobility WEAKNESS 30 DAY MONITOR DIZZINESS F/U, LAST SEEN 12/2020 ACID REFLUX 4 M FU E-ORDER racing heart Reason for Visit Elevated blood press ure reading Nonsustained ventricular tachycardia Palpitations Hyperlipidemia M ni re's disease Peripheral vestibulopathy Chief Complaint F/U, LAST SEEN ACID REFLUX 4 M FU E-ORDER racing heart PALPITATIONS chest pain HIATAL HERNIA RAPID PALPITIATIONS chest pain Reason for Visit Elevated blood press ure reading Nonsustained ventricular tachycardia Palpitations Hyperlipidemia M ni re's disease Peripheral vestibulopathy LUQ abdominal pain Chief Complaint ACID REFLUX 4 M FU E-ORDER racing heart PALPITATIONS chest pain HIATAL HERNIA RAPID PALPITIATIONS chest pain Reason for Visit M ni re's disease Peripheral vestibulopathy LUQ abdominal pain Chief Complaint 4 M FU E-ORDER racing heart PALPITATIONS chest pain HIATAL HERNIA RAPID PALPITIATIONS chest pain CHEST PRESSURE Reason for Visit M ni re's disease Peripheral vestibulopathy LUQ abdominal pain Chief Complaint Admit Date chest pain March 26, 2025 10:44 am Chief Complaint Admit Date chest pain March 26, 2025 10:44 am BALANCE ISSUES/LAST SEEN JUN 20242024 1:44pm Reason for Visit Admit Date Fatigue May 24, 2025 1:4 4pm Peripheral vestibulopathy May 24 1:44pm Chief Complaint Admit Date chest pain March 26, 2025 10:44 am BALANCE ISSUES/LAST SEEN JUN 20242024 1:44pm LEFT SIDED PARATHESIAS July 14 2 025 11:05am LEFT SIDED PARATHESIAS July 14 2 025 11:42am ACUTE VISIT July 15, 2025 2:49pm Reason for Visit Admit Date Fatigue May 24, 2025 1:4 4pm Peripheral vestibulopathy May 24 1:44pm Arm paresthesia, left July 14 11:05am Dysconjugate gaze July 14, 2025 11:05am Hyperglycemia July 14, 2025 11:05am Paresthesias July 14, 2025 11:05am Visual disturbance July 14, 2025 11:05am Fatigue July 15, 2025 2:49pm Peripheral vestibulopathy June 2:49pm Family History No Family History Records Found Relationship Condition Age at Onset Recorded Date/T franny sister Diabetes mellitus Unknown mother Diabetes mellitus Unknown father Hypertension Unknown Relationship Condition Age at Onset Recorded Date/T franny sister Diabetes mellitus Unknown Malignant neoplasm Unknown mother Diabetes mellitus Unknown Arthritis Unknown Cardiac disease Unknown father Hypertension Unknown Malignant neoplasm of colon Unknown High blood cholesterol Unknown brother Kidney disorder Unknown Relationship Condition Age at Onset Recorded Date/T franny sister Diabetes mellitus Unknown Malignant neoplasm Unknown mother Diabetes mellitus Unknown Arthritis Unknown Cardiac disease Unknown father Hypertension Unknown Malignant neoplasm of colon Unknown High blood cholesterol Unknown Cerebrovascular accident (CVA) Unknown brother Kidney disorder Unknown Advance Directives No Advanced Directives Records Found Advance Directive Response Recorded Date/ Time Living Will No October 01 4:56pm Power of Chief Learning Officer No October 01, 2021 4:56pm Advance Directive Response Recorded Date/ Time Living Will No August 26 5:40pm Power of Chief Learning Officer No August 26, 2022 5:40pm Advance Directive Response Recorded Date/ Time Living Will No November 06 11:13am Power of Chief Learning Officer No November 06, 2022 11:13am Advance Directive Response Recorded Date/ Time Living Will No November 06 12:13pm Power of Chief Learning Officer No November 06, 2022 12:13pm Advance Directive Response Recorded Date/ Time Living Will No February 14, 2023 3:40am Power of Chief Learning Officer No February 14 3:40am Advance Directive Response Recorded Date/ Time Living Will No March 28, 2023 2 :30pm Power of Chief Learning Officer No March 28, 2023 2:30pm Advance Directive Response Recorded Date/ Time Living Will No May 26, 2023 12:45am Power of Chief Learning Officer No May 26 12:45am Advance Directive Response Recorded Date/ Time Do you have a Healthcare Power of Chief Learning Officer? No March 26, 2025 11:14am Advance Directive Response Recorded Date/ Time Do you have a Healthcare Power of Chief Learning Officer? No July 14, 2025 11:56am Do you have a Healthcare Power of Chief Learning Officer? No March 26, 2025 11:14am Summary Purpose Additional Source Comments Goals (unrecognized section and content) Type Treatment Intervention Code Status: Full Code - Verified Care Team (unrecognized sect ion and content) Care Team Personnel Name: CHRISTIAN MENDEZ MD Position: P4 Physician - Cardiology Member Role: Lens Gauger Address: Address: [address] [place] [address] Name: COLBY BURNETT DO Position: P4 Physician - Primary Care Member Role: Primary Care Physician Address: Address: [address] [place] [address] Care Team Related Persons Name: ADRIANE MANE Care Team Personnel Name: CHRISTIAN MENDEZ MD Position: P4 Physician - Cardiology Member Role: Lens Gauger Address: Address: [address] [place] [address] Name: COLBY BURNETT DO Position: P4 Physician - Primary Care Member Role: Primary Care Physician Address: Address: [address] [place] [address] Care Team Related Persons Name: ADRIANE MANE Care Teams (unrecognized sec tion and content) Team Status: Active Member Role Status Dates Dr. Colby Burnett DO Family Provider Active Dr. Colby Burnett DO Primary Care Provider Active Team Status: Inactive Member Role Status Dates Dr. Colby Burnett DO Primary Care Provider, Referri ng Provider Active Dr. Rc Estes MD Attending Provider Active Team Status: Active Member Role Status Dates Dr. Colby Burnett DO Primary Care Provider Active Dr. John Caputo MD Attending Provider Active Team Status: Inactive Member Role Status Dates Dr. Colby Burnett DO Primary Care Provider Active Aidee Vega HARDWARE TECHNICIAN, HARDWARE TECHNICIAN-C Attending Provider, Referring Pro vider Active Team Status: Inactive Member Role Status Dates Dr. Colby Burnett DO Primary Care Provider Active Dr. Bill Chou MD Attending Provider, Emergency Provi alma Active Team Status: Inactive Member Role Status Dates Dr. Colby Burnett DO Primary Care Provider Active Quynh Hutton HARDWARE TECHNICIAN, HARDWARE TECHNICIAN-C Attending Provider, Referring Provider Active Team Status: Inactive Member Role Status Dates Dr. Colby Burnett , DO Primary Care Provider Active Dr. Rc Estes MD Attending Provider, Referring Provider Active Team Status: Active Member Role Status Dates Dr. Colby Burnett , DO Primary Care Provider Active Dr. Rc Estes MD Attending Provider, Referring Provider Active Team Status: Inactive Member Role Status Dates Dr. Colby Burnett , DO Primary Care Provider Active Dr. Suleman Gomez DO Attending Provider, Emergency Provider Active Team Status: Inactive Member Role Status Dates Dr. Colby Burnett , DO Primary Care Provider Active Dr. Rc Estes MD Attending Provider Active Team Status: Inactive Member Role Status Dates Dr. Colby Burnett , DO Primary Care Provider, Referri ng Provider Active Jyoti Murray HARDWARE TECHNICIAN, HARDWARE TECHNICIAN-C Attending Provider Active Team Status: Active Member Role Status Dates Dr. Colby Burnett DO Primary Care Provider Active Dr. John Caputo MD Attending Provider Active Dr. Rc Estes MD Referring Provider Active Team Status: Inactive Member Role Status Dates Dr. Colby Burnett , DO Primary Care Pro vider, Attending Provider, Referring Provider Active Team Status: Inactive Member Role Status Dates Dr. Colby Burnett DO Primary Care Provider Active Dr. Bandar Kasper , DO Emergency Provider Active Team Status: Inactive Member Role Status Dates Dr. Colby Burnett , DO Primary Care Provider, Referri ng Provider Active Dr. Ramesh Weir MD Attending Provider Active Team Status: Inactive Member Role Status Dates Dr. Colby Burnett DO Primary Care Provider Active Dr. Bandar Kasper , DO Attending Provider, Emergency Pr ovider Active Team Status: Inactive Member Role Status Dates Dr. Colby Burnett , DO Primary Care Provider Active Dr. Carolin Puentes , DO Attending Provider, Emergency P rovider Active Team Status: Inactive Member Role Status Dates Dr. Colby Burnett DO Primary Care Provider Active Dr. Ger Jason , DO Attending Provider, Emergency P rovider Active Team Status: Active Member Role Status Dates Dr. Colby Burnett DO Primary Care Provider Active Jyoti Murray HARDWARE TECHNICIAN, HARDWARE TECHNICIAN-C Attending Provider, Referring P rovider Active Team Status: Inactive Member Role Status Dates Dr. Colby Burnett DO Primary Care Provider Active Dr. Hu Nunez , DO Emergency Provider Active Team Status: Inactive Member Role Status Dates Dr. Colby Burnett DO Primary Care Provider Active Jyoti Murray HARDWARE TECHNICIAN, HARDWARE TECHNICIAN-C Attending Provider, Referring P kevin Active Team Status: Inactive Member Role Status Dates Dr. Colby Burnett DO Primary Care Provider Active Dr. Hu Nunez DO Attending Provider, Emergency Pro vider Active Team Status: Inactive Member Role Status Dates Dr. Colby Burnett DO Primary Care Provider Active Dr. Loki Jain MD Attending Provider, Referring Pr ovidlance Active Team Status: Inactive Member Role Status Dates Dr. Colby Burnett DO Primary Care Provider Active Dr. Christian Sood MD Emergency Provider Active Team Status: Active Member Role Status Dates No Primary Care Physician Primary Care Provider Active Team Status: Inactive Member Role Status Dates Dr. Mitchel Morel DO Emergency Provider Active Start: March 26, 2025 End: March 26, 2025 No Primary Care Physician Primary Care Provider Active Start: March 26, 2025 End: March 26, 2025 Team Status: Active Member Role/Relationship Status Dates Dr. Wily Carlton DO Primary Care Provider Active Team Status: Inactive Member Role/Relationship Status Dates Dr. Mitchel Morel DO Attending Provider Active Start: March 26, 2025 End: March 26, 2025 Dr. Mitchel Morel DO Emergency Provider Active Start: March 26, 2025 End: March 26, 2025 Dr. Wily Carlton DO Primary Care Provider Active Start: March 26, 2025 End: March 26, 2025 Team Status: Inactive Member Role/Relationship Status Dates Dr. Wily Carlton DO Primary Care Provider Active Start: May 24, 2025 End: May 24, 2025 Dr. Wily Carlton DO Referring Provider Active Start: May 24, 2025 End: May 24, 2025 Dr. Rc Estes MD Attending Provider Active Start: May 24, 2025 End: May 24, 2025 Team Status: Inactive Member Role/Relationship Status Dates Dr. Wily Carlton DO Primary Care Provider Active Start: June 25, 2025 End: June 25, 2025 Dr. Colby Dove MD Attending Provider Active Start: June 25, 2025 End: June 25, 2025 Dr. Colby Dove MD Referring Provider Active Start: June 25, 2025 End: June 25, 2025 Team Status: Active Member Role/Relationship Status Dates Dr. Wily Carlton DO Primary care physician Active Team Status: Inactive Member Role/Relationship Status Dates Dr. Mitchel Morel DO Attending physician Active Start: March 26, 2025 End: March 26, 2025 Dr. Mitchel Morel DO Emergency Department Physician A ctive Start: March 26, 2025 End: March 26, 2025 Dr. Wily Carlton DO Primary care physician Active Start: March 26, 2025 End: March 26, 2025 Team Status: Inactive Member Role/Relationship Status Dates Dr. Wily Carlton DO Primary care physician Active Start: May 24, 2025 End: May 24, 2025 Dr. Rc Estes MD Attending physician Active Start: May 24, 2025 End: May 24, 2025 Dr. Rc Estes MD Referring Provider Active Start: May 24, 2025 End: May 24, 2025 Team Status: Inactive Member Role/Relationship Status Dates Dr. Wily Carlton DO Primary care physician Active Start: June 25, 2025 End: June 25, 2025 Dr. Colby Dove MD Attending physician Active Start: June 25, 2025 End: June 25, 2025 Dr. Colby Dove MD Referring Provider Active Start: June 25, 2025 End: June 25, 2025 Team Status: Inactive Member Role/Relationship Status Dates Dr. Wily Carlton DO Primary care physician Active Start: July 14, 2025 End: July 14, 2025 Dr. Ger Jason DO Emergency Departm ent Physician Active Start: July 14, 2025 End: July 14, 2025 Dr. Ger Kimbrough DO Admitting physician Active Start: July 14, 2025 End: July 14, 2025 Dr. Ger Kimbrough DO Attending physician Active Start: July 14, 2025 End: July 14, 2025 Angelito Trinidad MD Nurse Practitioner Active Start : July 14, 2025 End: July 14, 2025 Dr. Valeriy Kirk MD Nurse Practitioner Active St art: July 14, 2025 End: July 14, 2025 Susana Mireles MD Nurse Practitioner Active S tart: July 14, 2025 End: July 14, 2025 Dr. Betzaida Lee DO Nurse Practitioner Active Start: July 14, 2025 End: July 14, 2025 Dr. Jemma Wilson MD Nurse Practitioner Active St art: July 14, 2025 End: July 14, 2025 Dr. Miles De Luna MD Nurse Practitioner Active Start: July 14, 2025 End: July 14, 2025 Dr. Hanna Taylor MD Nurse Practitioner Active S tart: July 14, 2025 End: July 14, 2025 Dr. Ramesh Chacon MD Nurse Practitioner Active St art: July 14, 2025 End: July 14, 2025 Dr. Luis Manuel Amezquita MD Nurse Practitioner Active S tart: July 14, 2025 End: July 14, 2025 Dr. Alex Olmedo MD Nurse Practitioner Active Start: July 14, 2025 End: July 14, 2025 Dr. Ramonita Arguello DO Nurse Practitioner Active Start: July 14, 2025 End: July 14, 2025 Khushboo Etienne MD Nurse Practitioner Active S tart: July 14, 2025 End: July 14, 2025 Dr. Clifton London MD Nurse Practitioner Active Start: July 14, 2025 End: July 14, 2025 Dr. Zelda Carranza MD Nurse Practitioner Active S tart: July 14, 2025 End: July 14, 2025 Dr. Chele Montalvo MD Nurse Practitioner Active Start: July 14, 2025 End: July 14, 2025 Dr. Abad Hackett MD Nurse Practitioner Active Start: June End: July 14, 2025 Dr. Christian Boateng MD Nurse Practitioner Active Start: July 14, 2025 End: July 14, 2025 Dr. Dorinda Stockton MD Nurse Practitioner Active Start: July 14, 2025 End: July 14, 2025 Dr. Rodolfo Urrutia MD Nurse Practitioner Active Start: July 14, 2025 End: July 14, 2025 Dr. Emma Ramos MD Nurse Practitioner Active St art: July 14, 2025 End: July 14, 2025 Babatunde Caceres MD Nurse Practitioner Active St art: July 14, 2025 End: July 14, 2025 Team Status: Active Member Role/Relationship Status Dates Dr. Wily Carlton DO Primary care physician Active Start: July 14, 2025 Dr. Ger Jason DO Emergency Departm ent Physician Active Start: July 14, 2025 Dr. Ger Kimbrough DO Admitting physician Active Start: July 14, 2025 Dr. Ger Kimbrough DO Attending physician Active Start: July 14, 2025 Dr. Ger Kimbrough DO Nurse Practitioner Active Start: July 14, 2025 Team Status: Active Member Role/Relationship Status Dates Dr. Wily Carlton DO Primary care physician Active Start: July 14, 2025 Dr. Stephenie Mckenzie MD Attending physician Active Start: July 14, 2025 Team Status: Inactive Member Role/Relationship Status Dates Dr. Wily Carlton DO Primary care physician Active Start: July 15, 2025 End: July 15, 2025 Dr. Wily Carlton DO Referring Provider Active Start: July 15, 2025 End: July 15, 2025 Dr. Rc Estes MD Attending physician Active Start: July 15, 2025 End: July 15, 2025 (unrecognized sect ion and content) No Status Records FoundNo Status Records FoundNo Status Records FoundNo Status Records Found INFORMATION SOURCE (unrecogn ized section and content) DATE CREATED AUTHOR 05/19/2024 [facility] ([place]) DATE CREATED AUTHOR AUTHOR'S ORGANIZ ATION 04/11/2025 [facility] DATE CREATED AUTHOR AUTHOR'S ORGANIZ ATION 07/25/2025 [facility] DATE CREATED AUTHOR AUTHOR'S ORGANIZ ATION 09/03/2025 [facility] FOR RECORDS PERTAINING TO PATIENTS WHO ARE OR HAVE BEEN ENROLLED IN A CHEMICAL DEPENDENCY/SUBSTANCEABUSE PROGRAM, SOME INFORMATION MAY BE OMITTED. This clinical summary was aggregated from multiple sources. Caution should be exercised in using it in the provision of clinical care. This summary normalizes information from multiple sources, and as a consequence, information in this document may materially change the coding, format and clinical context of patient data. In addition, data may be omitted in some cases. CLINICAL DECISIONS SHOULD BE BASED ON THE PRIMARY CLINICAL RECORDS. [facility]. provides no warranty or guarantee of the accuracy or completeness of information in this document.
--- NOTE | 2025-09-08 14:41 | NEURO_ITS ---
NCS and/or EMG Patient Report Ordering Doctor: Rc Estes DATE OF SERVICE: 09/08/25 Blu presents complaints of numbness and tingling in both hands. Electrodiagnostic findings: Median motor nerve demonstrates prolonged distal latency bilaterally with normal amplitude and normal conduction velocities. Uln ar motor response within normal limits bilaterally. Normal median and ulnar F?waves. Prolonged median sensory latency at the wrist bilaterally. Needle EMG testing was performed in the upper limbs. All muscles tested showed no evidence of denervation with normal motor unit action potentials. Electrodiagnostic impression: This is an abnormal study. 1. Electrodiagnostic findings suggestive of bilateral median mononeuropathy. This is consistent with a mild to moderate bilateral carpal tunnel syndrome. Multi Select Codes Neurology Neurology Interp Codes: 38831-77 Musc test done w/n test comp (interp) (2) and 56475-86 Nrv cndj test 9-10 studies (interp)
== END | disposition home or self-care (01) ==
PROVIDERS: Referring Provider Psychiatry & Neurology Neurology; Visit Provider Psychiatry & Neurology Neurology
DX: R20.2 Paresthesia of skin (principal); M54.2 Cervicalgia
CPT/HCPCS: 95886; 95911